=== PATIENT | female | born 1955 | race Caucasian/White ===

== ENCOUNTER 2019-11-25 08:44 | Inpatient (IN) | payer BC, SELFPAY ==
[2019-11-25] VITALS (14 sets, daily range): BP systolic 104–152; BP diastolic 58–80; PULSE 80–110; RESP 18–20; TEMP 36.2–37.1; O2SAT 98–100; BMI 21.5
--- NOTE | ~2019-11-25 | XR_ITS ---
EXAMINATION: XR chest 1V portable INDICATION: Fever TECHNIQUE: Portable AP chest at 1548 hours COMPARISON: 08/13/2018 FINDINGS: The lungs are free of acute opacities. There is no pleural effusion or pneumothorax. The ca rdiomediastinal silhouette is normal. The visualized bones and soft tissues are unremarkable. IMPRESSION: 1. No acute cardiopulmonary abnormality. Reviewed, dictated and finalized at location A.
--- NOTE | 2019-11-25 08:57 | ED.GENADULT ---
HPI - General Adult General Chief complaint: Unspecified Stated complaint: multiple complaints Time Seen by Provider: 11/25/19 08:52 History of Present Illness HPI narrative: 64 yo female presents from home with multiple complaints. She has not been feeling well for the past 3 days. She has no appetitie, she has not been tolerating food or liquids. She also reports chills and temperature up to 99.6. Generalized weakness an light headedness. She has no known sick contacts, but she has not been practicing social distancing. Related Data Home Medications Medication Instructions Recorded Confirmed albuterol sulfate 90 mcg/actuation 1 puff INHALATION Q4H PRN 04/13/19 11/25/19 aerosol inhaler estradiol 1 mg PO DAILY 11/25/19 11/25/19 fluticasone propion-salmeterol 1 inh INHALATION Q12H 11/25/19 11/25/19 [Wixela Inhub] hyoscyamine sulfate 0.125 mg PO Q4H PRN 11/25/19 11/25/19 ibuprofen 400 mg PO Q6H PRN 11/25/19 11/25/19 metaxalone 800 mg PO TID PRN 11/25/19 11/25/19 pantoprazole 40 mg PO DAILY 11/25/19 11/25/19 Allergies Allergy/AdvReac Type Severity Reaction Status Date / Time No Known Allergies Allergy Verified 11/25/19 09:05 Review of Systems Review of Systems: All systems reviewed & are unremarkable except as noted in HPI and below Constitutional: Constitutional: Reports chills ENT: Denies sore throat Cardiovascular: Cardiovascular: Denies chest pain Respiratory: Respiratory: Reports dyspnea Gastrointestinal: Gastrointestinal: Reports diarrhea, Reports nausea and Reports vomiting Genitourinary: Genitourinary: Denies hematuria and Denies dysuria Neurologic: Reports dizziness, Reports headache(s) and Reports weakness PMFSH Family History Family History Father Family history of suicide Family history of rheumatoid arthritis Sibling Family history of osteoarthritis Mother Family history of chronic obstructive pulmonary disease Family history of malignant neoplasm Social History Social History Smoking status: Former smoker Tobacco type: cigarettes Smoking end date: 06/03/00 Alcohol intake: never Substance use: never Gender identity (if verbalized by the patient): Female Spiritual care concerns: No Exam Const: General: no acute distress, alert and ill appearing Orientation/consciousness: patient oriented x3 HENMT: Mouth: Yes dry mucous membranes Resp: Effort & Inspection: normal respiratory effort Auscultation: clear to auscultation bilaterally Cardio: Rate: regular rate Rhythm: regular rhythm GI: GI Palp: Yes Soft to palpation and No Tenderness to palpation present (GI) Skin: General skin exam: normal color Neuro: General: patient oriented x3, moves all extremities, no focal motor deficits and CN's II-XI intact bilaterally Speech: normal speech Extrem: General: normal to inspection Psych: Affect: Anxious affect present Course Vital Signs Vital signs: Vital Signs Temperature 36.2 C L 11/25/19 08:51 Pulse Rate 91 11/25/19 08:51 Respiratory Rate 18 11/25/19 08:51 Blood Pressure 152/75 H 11/25/19 08:51 Pulse Oximetry 100 11/25/19 08:51 Temperature 36.2 C L 11/25/19 08:51 Pulse Rate 110 H 11/25/19 12:05 Respiratory Rate 18 11/25/19 11:40 Blood Pressure 135/74 11/25/19 11:40 Pulse Oximetry 100 11/25/19 11:40 Medical Decision Making MDM Narrative Medical decision making narrative: She has significant hyponatremia, likely dehydration related. This could be an atypicla presentation of COVID-19. Will test and plan to admit. Medical Records Medical records reviewed: Yes I reviewed the patient's medical records. Vital Signs Vital Signs: Vital Signs Temperature 36.2 C L 11/25/19 08:51 Pulse Rate 91 11/25/19 08:51 Respiratory Rate 18 11/25/19 08:51 Blood Pressure 152/75 H 11/25/19 08:51 Pulse Oximetry 1
[2019-11-25 09:27] LABS: Basophils Absolute Auto 0.1 K/mm3 (0.0-0.1); Basophils Percent Auto 2.1 % (0.2-1.2); Eosinophils Absolute Auto 0.1 K/mm3 (0-0.3); Eosinophils Percent Auto 1.2 % (0-4.4); Hematocrit 37.9 % (37.0-47.0); Hemoglobin 14.1 g/dL (12.0-15.0); Immature Granulocyte Absolute 0.05 K/mm3 (0.00-0.031); Immature Granulocyte Percent A 1.2 % (0-0.5); Lymphocytes Absolute Auto 1.07 K/mm3 (0.9-3.2); Lymphocytes Percent Auto 25.3 % (18.3-44.2); Mean Corpuscular HGB Conc 37.2 g/dl (32-36); Mean Corpuscular Hemoglobin 34.1 pg (26-34); Mean Corpuscular Volume 91.5 fl (80-100); Mean Platelet Volume 9.7 fl (7.4-10.4); Monocytes Absolute Auto 0.8 K/mm3 (0.1-0.6); Monocytes Percent Auto 19.6 % (2.6-8.5); Neutrophils Absolute Auto 2.1 K/mm3 (1.3-6.7); Neutrophils Percent Auto 50.6 % (45.5-73.1); Platelet Count Result 301 k/mm3 (150-375); Red Blood Count 4.14 M/mm3 (4.2-5.4); Red Cell Distribution Width 11.9 % (11.5-14.5); White Blood Count 4.2 K/mm3 (4.5-10.0)
[2019-11-25 09:32] LABS: Add Urine Microscopic? YES; Appearance Urine Clear (Clear); Bacteria Urine Trace /hpf; Bilirubin Urine Negative (Negative); Blood Urine 1+ (Negative); Color Urine Yellow (Yellow); Glucose Urine UA Negative (Negative); Hyaline Casts Urine 30-49 /lpf; Ketones Urine Negative (Negative); Leukocyte Esterase Ur Negative LEU/UL (Negative); Mucus Urine Rare /lpf; Nitrate Urine Negative (Negative); Protein Urine 2+ mg/dL (Negative); Specific Grav Ur 1.019 (1.001-1.035); Squamous Epithelial Cell Urine Moderate /hpf (Few); Urobilinogen Urine Negative mg/dL (<2.0); WBC Urine 0-3 /hpf
[2019-11-25] MEDS: SODIUM CHLORIDE 0.9% IV 1,000 ML 999 ML IV CONT (09:44)
[2019-11-25] MEDS: ONDANSETRON INJ 4 MG/2 ML VIAL IV PUSH (09:44)
[2019-11-25 09:52] LABS: Alanine Aminotransferase 30 U/L (4-35); Albumin Level 4.8 g/dL (3.5-5.1); Alkaline Phosphatase 128 U/L (38-126); Aspartate Amino Transferase 69 U/L (14-36); Bilirubin,Total 1.8 mg/dL (0.2-1.3); Blood Urea Nitrogen 3 mg/dL (7-17); Calcium 9.8 mg/dL (8.4-10.2); Carbon Dioxide 25 mmol/L (22-30); Chloride 77 mmol/L (98-107); Estimated CRCL calculation 65 ml/min; Estimated Glomerular Filt Rate > 60; Glucose 124 mg/dL (65-105); Lipase 56 U/L (23-300); Potassium 2.8 mmol/L (3.4-5.0); Sodium 114 mmol/L (137-145)
[2019-11-25] MEDS: POTASSIUM CHLORIDE 20 MEQ PACKET (FOR LIQUID) 40 MEQ PO (11:46)
--- NOTE | 2019-11-25 12:00 | ADMGEN ---
This patient, Rosemarie Chung, was admitted to [facility] Surg Room 329-01. Patient/family oriented to hospital policies and general routines including ID bracelet, bed and alarms, visiting hours, pain management, procedures, bathroom and other care routines, personal items, smoking policy, room service/diet, and visiting hours. Valuables list has been completed. Information on how to activate the Rapid Response Team has been discussed. Patient/Family are encouraged to report perceived risks to care and to ask questions if they do not understand what they are told or what they should do.
[2019-11-25] MEDS: LACTATED RINGERS 1,000 ML 100 ML IV CONT ×2 (12:09→21:26)
[2019-11-25] MEDS: LORAZEPAM 0.5 MG TABLET PO ×2 (13:40→22:00)
[2019-11-25] MEDS: estradioL 1 MG TABLET PO (14:58)
[2019-11-25] MEDS: PANTOPRAZOLE 40 MG TABLET PO (14:59)
[2019-11-25] MEDS: METAXALONE 800 MG TABLET PO ×2 (16:00→20:11)
--- NOTE | 2019-11-25 16:12 | PM.IMHP ---
H&P: HPI History of Present Illness Chief complaint: hyponatremia,dehydration Narrative: Rosemarie Chung is a 64 year old female who has irritable bowel syndrome and has been having nausea vomiting and diarrhea for the last 3 days. She has not had any cough but has had a low-grade fever less than 100. She just does not have any appetite she has not been able to tolerate food or liquids. She has some generalized weakness and some lightheadedness. She has not been practicing social to sensing at her son-in-law works at a [employer] house. He has not tested positive for covid 19. She has not had a test for covid 19 until today. Sodium level 114. Potassium 2.8. Was replaced a as she was given Zofran and IV fluids. Patient was swabbed for COVID and placed in isolation. Awaiting results. She has been afebrile here. Review of Systems Review of Systems: All systems reviewed & are unremarkable except as noted in HPI and below Constitutional: Constitutional: Reports as per HPI and Reports no additional constitutional complaints Eyes: Eyes: Reports as per HPI and Reports no additional eye complaints ENT: Reports system reviewed and no additional complaints, except as documented and Reports Normal hearing present Cardiovascular: Cardiovascular: Reports no additional cardiovascular complaints Respiratory: Respiratory: Reports no additional respiratory complaints and Reports no additional respiratory complaints Gastrointestinal: Gastrointestinal: Reports as per HPI and Reports no additional gastrointestinal complaints Musculoskeletal: Musculoskeletal: Reports no additional musculoskeletal complaints Integumentary/Breasts: Skin/Breast: Reports system reviewed and no additional complaints, except as docu and Reports as per HPI Neurologic: Reports system reviewed and no additional complaints, except as documented, Reports as per HPI and Reports Normal hearing present Psychiatric: Psychiatric: Reports no additional psychiatric complaints and Reports as per HPI Endocrine: Endocrine: Reports no additional endocrine complaints Hematologic/Lymphatic: Hematologic/Lymphatic: Reports no additional hematologic/lymphatic complaints Allergic/Immunologic: Allergic/Immunologic: Reports no additional allergic/immunologic complaints [facility] Past Medical History Medical History (Updated 11/25/19 @ 16:35 by Kathie Barnett NP) COPD (chronic obstructive pulmonary disease) Surgical History Surgical History (Updated 11/25/19 @ 16:25 by Kathie Barnett NP) H/O repair of right rotator cuff H/O toe surgery Neuroma removed H/O: hysterectomy Family History Family History (Updated 11/25/19 @ 16:29 by Kathie Barnett NP) Father Family history of suicide Family history of rheumatoid arthritis Sibling Family history of osteoarthritis Mother Family history of chronic obstructive pulmonary disease Family history of malignant neoplasm Daughter Asthma Social History Social History (Updated 11/25/19 @ 16:29 by Kathie Barnett NP) Social History: She lives with her who she desires to have is her durable to power estate planning attorney for healthcare. Patient desires to be a full code. She has 1 daughter who has asthma. She is retired. She is a former smoker. She does not use any alcohol marijuana or any in illicit drugs. Smoking status: Former smoker Tobacco type: cigarettes Smoking end date: 06/03/00 Alcohol intake: never Substance use: never Gender identity (if verbalized by the patient): Female Spiritual care concerns: No Meds Home Medications and Allergies Home Medications Medication Instructions Recorded Confirmed Type albuterol sulfate 90 mcg/actuation 1 puff INHALATION Q4H PRN 04/13/19 11/25/19 History aerosol inhaler lorazepam 0.5 mg tablet 0.5 mg PO TID PRN #90 tablet 09/08/19 11/25/19 Rx hydrocodone 5 mg-acetaminophen 325 1 tablet PO Q8H PRN #60 tablet 10/12/19 11/25/19 Rx mg tablet diclofenac
[2019-11-25 17:05] LABS: Magnesium 1.2 mg/dL (1.6-2.3)
[2019-11-25 17:15] LABS: Blood Urea Nitrogen 3 mg/dL (7-17); Calcium 8.5 mg/dL (8.4-10.2); Carbon Dioxide 23 mmol/L (22-30); Chloride 89 mmol/L (98-107); Estimated CRCL calculation 88 ml/min; Estimated Glomerular Filt Rate > 60; Glucose 107 mg/dL (65-105); Potassium 3.6 mmol/L (3.4-5.0); Sodium 120 mmol/L (137-145)
[2019-11-25] MEDS: FAMOTIDINE 20 MG/2 ML VIAL IV PUSH (20:08)
[2019-11-25] MEDS: FLUTICASONE/SALMETEROL 115-21 MCG INHALER 1 PUFF 2 PUFF INHALATION (21:20)
[2019-11-26] VITALS (13 sets, daily range): BP systolic 120–140; BP diastolic 63–70; PULSE 78–104; RESP 16–18; TEMP 36.6–37.3; O2SAT 98–100
[2019-11-26 01:04] LABS: Sodium 120 mmol/L (137-145)
[2019-11-26] MEDS: METAXALONE 800 MG TABLET PO ×3 (05:24→22:08)
[2019-11-26 07:02] LABS: Alanine Aminotransferase 21 U/L (4-35); Alkaline Phosphatase 95 U/L (38-126); Aspartate Amino Transferase 47 U/L (14-36); Blood Urea Nitrogen 4 mg/dL (7-17); CRP 0.6 mg/dL (<1.0); Calcium 8.5 mg/dL (8.4-10.2); Carbon Dioxide 27 mmol/L (22-30); Chloride 93 mmol/L (98-107); Estimated CRCL calculation 88 ml/min; Estimated Glomerular Filt Rate > 60; Glucose 96 mg/dL (65-105); Lipase 71 U/L (23-300); Magnesium 1.3 mg/dL (1.6-2.3); Potassium 3.2 mmol/L (3.4-5.0); Sodium 125 mmol/L (137-145)
[2019-11-26] MEDS: FLUTICASONE/SALMETEROL 115-21 MCG INHALER 1 PUFF 2 PUFF INHALATION ×2 (07:55→20:14)
[2019-11-26] MEDS: FAMOTIDINE 20 MG/2 ML VIAL IV PUSH ×2 (08:56→22:06)
[2019-11-26] MEDS: PANTOPRAZOLE 40 MG TABLET PO (08:56)
[2019-11-26] MEDS: POTASSIUM CHLORIDE 20 MEQ TABLET 40 MEQ PO (08:56)
[2019-11-26] MEDS: estradioL 1 MG TABLET PO (08:56)
[2019-11-26] MEDS: LORAZEPAM 0.5 MG TABLET PO ×2 (08:57→22:08)
[2019-11-26] MEDS: LACTATED RINGERS 1,000 ML 100 ML IV CONT ×2 (09:02→19:25)
[2019-11-26] MEDS: MAGNESIUM OXIDE 400 MG TABLET PO (10:02)
[2019-11-26 12:47] LABS: SARS-CoV-2 RNA PCR Negative
--- NOTE | 2019-11-26 15:47 | PM.IMPN ---
Progress Note: A&P Assessment and Plan (1) Acute hyponatremia: Code(s): E87.1 - Hypo-osmolality and hyponatremia Status: Acute Assessment and Plan: This is most likely secondary to dehydration as patient had ongoing vomiting and diarrhea for approximately 3 days. Sodium was 114 at presentation, and has increased steadily to 125. She is now tolerating oral intake. Repeat sodium this afternoon Continue lactated Ringer's at a decreased rate of 70 ml/hr Will check urine sodium if she does not demonstrate continued improvement with IV fluids. (2) Hypokalemia: Code(s): E87.6 - Hypokalemia Status: Acute Assessment and Plan: Potassium was low at presentation at 2.8. This was likely due to dehydration. Levels improved with replacement but on repeat this morning was mildly low at 3.2. Replace potassium a continue to supplement as needed Continue to monitor levels closely (3) Hypomagnesemia: Code(s): E83.42 - Hypomagnesemia Status: Acute Assessment and Plan: Low at 1.3, again likely due to dehydration secondary to nausea and vomiting. Replace magnesium and continue to supplement as needed Continue to monitor closely (4) Irritable bowel syndrome with diarrhea: Code(s): K58.0 - Irritable bowel syndrome with diarrhea Status: Acute Assessment and Plan: Patient reported diarrhea ongoing approximately 3 days. Her bowel movements have been formed in the hospital. Continue hyoscyamine Continue to monitor. She may benefit from outpatient referral to GI doctor given diarrhea chronicity. (5) Fibromyalgia: Code(s): M79.7 - Fibromyalgia Status: Acute Assessment and Plan: She denies diffuse pain or muscle aches at this time. Continue home pain regimen of Skelaxin and [place] as needed (6) Anxiety: Code(s): F41.9 - Anxiety disorder, unspecified Status: Chronic Assessment and Plan: She reports being slightly anxious about being in the hospital but overall is stable. Continue lorazepam as needed (7) COPD (chronic obstructive pulmonary disease): Code(s): J44.9 - Chronic obstructive pulmonary disease, unspecified Status: Chronic Assessment and Plan: Stable at this time and not in acute exacerbation. She is maintaining adequate oxygenation. Continue albuterol as needed Maintain oxygen level >90% (8) Suspected COVID-19 virus infection: Code(s): Z20.828 - Contact with and (suspected) exposure to other viral communicable diseases Status: Acute Assessment and Plan: COVID-19 test is pending at this time. She reports she has not been practicing social distancing. She did endorse fevers at home. She denies shortness of breath or cough and she is maintaining adequate oxygenation on room air Continue isolation precautions and await results Subjective Date/time seen: 11/26/19 15:47 Interval history: Date of service: 11/26/2019 She reports that she is feeling much better today. She does complain of some bilateral leg pain secondary to sciatica. She has not had any additional nausea or vomiting. She denies abdominal pain, cramping, or diarrhea. She had a formed bowel movement this afternoon. She was able to tolerate breakfast and lunch today. She denies cough, shortness of breath, or chest pain. Subjective fever, chills, dizziness or lightheadedness. She has been ambulating around the room without difficulty. She denies urinary symptoms. She denies muscle weakness or cramps, but states that is not uncommon for her to get Charley horses in her legs. She is in good spirits. Review of Systems Review of Systems: Narrative: A 12 point review of systems was reviewed with pertinent positives and negatives as per Exam Narrative: Exam Narrative: Ms. Chung is examined alone today. She is a well-nourished 64-year-old female who is sitting up at t
--- NOTE | 2019-11-26 16:05 | PC.NURSE ---
Notified Elisha WILSON that patient's COVID test was negative.
[2019-11-26 16:27] LABS: Sodium 126 mmol/L (137-145)
[2019-11-26 17:57] LABS: IFOB Positive Control Positive; Immunochemical Fecal Occult Bl Negative (N)
[2019-11-27] VITALS (7 sets, daily range): BP systolic 141–144; BP diastolic 79–80; PULSE 85–93; RESP 16–18; TEMP 36.5–36.7; O2SAT 97–99
[2019-11-27] MEDS: LORAZEPAM 0.5 MG TABLET PO (04:27)
[2019-11-27] MEDS: LACTATED RINGERS 1,000 ML 100 ML IV CONT (05:55)
[2019-11-27] MEDS: METAXALONE 800 MG TABLET PO (05:55)
[2019-11-27 06:42] LABS: Blood Urea Nitrogen 5 mg/dL (7-17); Calcium 8.9 mg/dL (8.4-10.2); Carbon Dioxide 27 mmol/L (22-30); Chloride 95 mmol/L (98-107); Estimated CRCL calculation 106 ml/min; Estimated Glomerular Filt Rate > 60; Glucose 98 mg/dL (65-105); Magnesium 1.3 mg/dL (1.6-2.3); Potassium 3.7 mmol/L (3.4-5.0); Sodium 128 mmol/L (137-145)
[2019-11-27] MEDS: MAGNESIUM OXIDE 400 MG TABLET PO (08:39)
[2019-11-27] MEDS: estradioL 1 MG TABLET PO (08:39)
[2019-11-27] MEDS: PANTOPRAZOLE 40 MG TABLET PO (08:39)
[2019-11-27] MEDS: FAMOTIDINE 20 MG/2 ML VIAL IV PUSH (08:39)
[2019-11-27] MEDS: FLUTICASONE/SALMETEROL 115-21 MCG INHALER 1 PUFF 2 PUFF INHALATION (09:03)
--- NOTE | 2019-11-27 13:48 | PM.DS ---
DS: Admitting Diagnosis Admitting Diagnosis Admitting Diagnosis: Hypo-osmolality and hyponatremia DS: Discharge Diagnosis Discharge Diagnosis (1) Acute hyponatremia: Code(s): E87.1 - Hypo-osmolality and hyponatremia Status: Acute Assessment and Plan: Most likely secondary to dehydration as she presented with approximately 3 days of ongoing nausea, vomiting, and diarrhea which improved. Sodium was 114 at presentation, and increased steadily to 128 with gentle IV fluids. She will repeat BMP in one week. (2) Hypokalemia: Code(s): E87.6 - Hypokalemia Status: Acute Assessment and Plan: Potassium was low at presentation at 2.8, likely secondary to vomiting and diarrhea. Levels improved with replacement and potassium was 3.7 at discharge. Repeat BMP in one week. (3) Hypomagnesemia: Code(s): E83.42 - Hypomagnesemia Status: Acute Assessment and Plan: Again likely due to dehydration secondary to nausea and vomiting. Magnesium was replaced but still mildly low at discharge. I expect improvement with advancement of oral intake. Repeat magnesium in one week. (4) Irritable bowel syndrome with diarrhea: Code(s): K58.0 - Irritable bowel syndrome with diarrhea Status: Acute Assessment and Plan: Her diarrhea resolved. She will continue hyoscyamine. She may benefit from outpatient referral to GI doctor given diarrhea chronicity. (5) Fibromyalgia: Code(s): M79.7 - Fibromyalgia Status: Acute Assessment and Plan: Continue home pain regimen of Skelaxin and [place] as needed (6) Anxiety: Code(s): F41.9 - Anxiety disorder, unspecified Status: Chronic Assessment and Plan: She was slightly anxious about being in the hospital but overall remained stable. (7) COPD (chronic obstructive pulmonary disease): Code(s): J44.9 - Chronic obstructive pulmonary disease, unspecified Status: Chronic Assessment and Plan: Not in acute exacerbation. She maintained adequate oxygenation on room air. (8) Suspected COVID-19 virus infection: Code(s): Z20.828 - Contact with and (suspected) exposure to other viral communicable diseases Status: Acute Assessment and Plan: COVID-19 test is pending at this time. She reports she has not been practicing social distancing. She did endorse fevers at home. She denies shortness of breath or cough and she is maintaining adequate oxygenation on room air Continue isolation precautions and await results (9) COVID-19 ruled out: Code(s): Z03.818 - Encounter for observation for suspected exposure to other biological agents ruled out Status: Acute Assessment and Plan: Negative COVID test on 11/25/2019. We discussed maintaining social distancing, hand hygiene, and mask wearing. DS: Summary Hospital Course Reason for hospitalization: Acute hyponatremia Hospital Course: Date of admission: 11/25/2019 Date of discharge: 11/27/2019 Rosemarie Chung is a 64 year old female with a PMH significant for COPD and IBS with diarrhea who presented to the emergency departement on 11/25/2019 with complaints of nausea, vomiting, and diarrhea for approximately 3 days with associated low grade fever Tmax 99.7, poor appetite and inability to tolerate oral intake, weakness, and lightheadedness. She denied cough or shortness of breath, but given her overall symptoms and having close contact with her son who works in a custodial, she was concerned for Covid-19. At presentation, she was afebrile, WBC 4.2, sodium 114, potassium 2.8, chloride 77, lipase 56, magnesium 1.2, and unremarkable CXR. She was admitted to the hospitalist service on 11/25/2019. She tested negative for Covid and isolation precautions were discontinued. Her sodium, potassium, and magnesium were replaced and she was rehydrated with IV fluids. She began feeling much better, was able to tolerate a regular diet, an
--- NOTE | 2019-11-27 16:14 | PC.NURSE ---
Pt is A&O x 3. Pt has had IV removed, and discharge paperwork has been reviewed. Opportunity for questions provided and questions answered to the best of my ability. Pt had tele removed. Pt was assisted in a wheelchair by staff, to the front door to meet her ride.
== END 2019-11-27 15:30 | disposition home or self-care (01) | DRG 641 ==
LOC: ANHED 10:35 → ANH3MEDSUR 10:54
PROVIDERS: Nurse Practitioner; Admitting Provider Family Medicine; Emergency Provider Emergency Medicine; PCP Internal Medicine; Visit Provider Physician Assistant
DX: E86.0 Dehydration (principal); E87.1 Hypo-osmolality and hyponatremia; E87.6 Hypokalemia; E83.42 Hypomagnesemia; R50.9 Fever, unspecified; Z20.828 Contact with and (suspected) exposure to other viral communicable diseases; J44.9 Chronic obstructive pulmonary disease, unspecified; K58.0 Irritable bowel syndrome with diarrhea; M79.7 Fibromyalgia; F41.9 Anxiety disorder, unspecified; Z87.891 Personal history of nicotine dependence
CPT/HCPCS: 36415; 71045; 80048; 80053; 81001; 82274; 83690; 83735; 84295; 84443; 85025; 86140; 87015; 87045; 87046; 87269; 87272; 87324; 87427; 87635; 89055; 94640; 96361; 96374; 99285; A9270; C9803; J2405; J7030; J7120; U0003

== ENCOUNTER 2019-12-04 15:17 | Outpatient (CLI) | payer BC, SELFPAY ==
[2019-12-04 16:47] LABS: Blood Urea Nitrogen 8 mg/dL (7-17); Calcium 8.6 mg/dL (8.4-10.2); Carbon Dioxide 25 mmol/L (22-30); Chloride 91 mmol/L (98-107); Estimated Glomerular Filt Rate > 60; Glucose 86 mg/dL (65-105); Magnesium 1.6 mg/dL (1.6-2.3); Potassium 4.7 mmol/L (3.4-5.0); Sodium 126 mmol/L (137-145)
== END 2019-12-04 15:18 | disposition home or self-care (01) ==
LOC: ANHLAB 15:19
PROVIDERS: PCP Internal Medicine; Visit Provider Physician Assistant
DX: E83.42 Hypomagnesemia (principal); E87.1 Hypo-osmolality and hyponatremia; E87.6 Hypokalemia
CPT/HCPCS: 36415; 80048; 83735

== ENCOUNTER 2019-12-15 10:02 | Outpatient (CLI) | payer BC, SELFPAY ==
--- NOTE | ~2019-12-15 | XR_ITS ---
XR lumbar spine 2-3V DATE: 12/15/2019 10:28 INDICATION: Lumbar radiculopathy following injury from fall 2 weeks ago TECHNIQUE: AP, lateral, coned lateral lumbosacral views COMPARISON: 05/23/2018 lumbar spine FINDINGS: There is rotatory levoscoliosis of the lower thoracic and lumbar spine. There is multilevel degenerative disc disease, particularly prominent at L1-2 and L5-S1. No fracture or bone destruction or spondylolisthesis. The included lower thoracic and lumbar pedicles are intact. The sacroiliac joints are normal. IMPRESSION: Rotatory levoscoliosis of the thoracolumbar spine and multilevel degenerative disc diseas e Reviewed, dictated and finalized at location A. IMPRESSION: Rotatory levoscoliosis of the thoracolumbar spine and multilevel de generative disc disease
== END 2019-12-15 10:03 | disposition home or self-care (01) ==
PROVIDERS: PCP Internal Medicine; Visit Provider Pain Medicine Interventional Pain Medicine
DX: M54.17 Radiculopathy, lumbosacral region (principal); G89.4 Chronic pain syndrome; Z79.891 Long term (current) use of opiate analgesic; Z13.89 Encounter for screening for other disorder; M51.36 Other intervertebral disc degeneration, lumbar region
CPT/HCPCS: 72100

== ENCOUNTER → 2019-12-30 12:18 | Outpatient (CLI) | payer BC, SELFPAY ==
--- NOTE | ~2019-12-30 | MM_ITS ---
EXAMINATION: MM screening carmen BI w daljit HISTORY: Screening mammogram TECHNIQUE: Craniocaudal and mediolateral oblique 3-D tomosynthesis images were obtained and synthetic 2-D images were generated. CAD analysis was submitted and interpreted. COMPARISON: 11/13/2018, 07/24/2017, 07/18/2016 bilateral digital screening mammogram examinations BREAST PARENCHYMAL COMPOSITION: FINDINGS: There are occasional bilateral benign calcifications. There is no evidence of suspicious m ass, calcification, or architectural distortion to suggest malignancy in either breast. There has bee n no suspicious interval change. IMPRESSION: 1. No mammographic evidence of malignancy. 2. Recommend routine screening mammography in one year. BI-RADS Category 2: Benign finding(s). Reviewed, dictated and finalized at location A.
--- NOTE | ~2019-12-30 | DEXA_ITS ---
Bone Density Report Name: Rosemarie Chung Age: 64 Sex: Female Ethnicity: White Date of : 1955 Indication: monitoring treatment; parental hip fracture; height loss; prior fracture; hysterectomy; Referring Provider: ABDIEL DIXON Study: Bone densitometry was performed. Exam Date: December 30, 2019 Accession number: [id number] There is hypertrophic degenerative change of the lumbar spine, which results in higher than expected spine bone mineral density measurements. These spine BMD and T score and Z score measurements are not reflective of the patient's true general bone mineral density. Bone Density: Region BMD T-score Z-score Classification AP Spine (L3, L4) 1.349 2.3 3.9 Normal Femoral Neck (Left) 0.930 0.7 2.1 Normal Total Hip (Left) 1.198 2.1 3.2 Normal Femoral Neck (Right) 0.944 0.9 2.2 Normal Total Hip (Right) 1.152 1.7 2.8 Normal Total Hip Mean 1.175 1.9 3.0 Normal World Health Organization criteria for BMD impression classify patients as: Normal (T-score at or above -1.0), Osteopenia (T-score between -1.0 and -2.5), or Osteoporosis (T-score at or below -2.5). 10-year Fracture Risk: FRAX not reported because: All T-scores for Spine Total, Hip Total, Femoral Neck at or above -1.0 Treated for osteoporosis Previous Exams: Region Exam Age BMD T-score BMD Change BMD Change Date g/cm2 vs Baseline vs Previous AP Spine(L3, L4) 12/30/2019 64 1.349 2.3 0.133* 0.047* 04/22/2015 59 1.303 1.8 0.087* 0.064* 05/10/2012 56 1.239 1.3 0.023* 0.033* 06/16/2007 51 1.206 1.0 -0.010 -0.010 05/03/2004 48 1.216 1.0 Total Hip(Left) 12/30/2019 64 1.198 2.1 -0.034* 0.028* 04/22/2015 59 1.170 1.9 -0.062* -0.025 05/10/2012 56 1.196 2.1 -0.037* 0.056* 06/16/2007 51 1.140 1.6 -0.093* -0.093* 05/03/2004 48 1.232 2.4 Total Hip(Right) 12/30/2019 64 1.152 1.7 -0.087* -0.023 04/22/2015 59 1.175 1.9 -0.064* 0.026 05/10/2012 56 1.149 1.7 -0.090* 0.019 06/16/2007 51 1.130 1.5 -0.109* -0.109* 05/03/2004 48 1.238 2.4 *Denotes significance at 95% confidence level, LSC for AP Spine = 0.022 g/cm2, LSC for Total Hip = 0.027 g/cm2 Clinical Information Provided by Patient: Has had a low trauma fracture Parent has had a hip fracture Is being ghazala
== END ==
PROVIDERS: Visit Provider Obstetrics & Gynecology Gynecology
DX: Z12.31 Encounter for screening mammogram for malignant neoplasm of breast (principal); Z78.0 Asymptomatic menopausal state
CPT/HCPCS: 77063; 77067; 77080

== ENCOUNTER → 2020-02-13 10:36 | Outpatient (CLI) | payer BC, SELFPAY ==
--- NOTE | ~2020-02-13 | MR_ITS ---
EXAMINATION: MR lumbar spine wo con DATE: 02/13/2020 11:20 INDICATION: Lumbar radiculopathy. Chronic low back pain and left leg pain. TECHNIQUE: Magnetic resonance imaging (MRI) of the lumbar spine was performed without intravenous con trast. Sequences included sagittal T2-weighted FSE, sagittal T2-weighted FS FSE, sagittal T1-weighted FSE, and axial T2-weighted FSE. COMPARISON: Lumbar spine radiographs 12/15/2019 FINDINGS: There is 22 degrees levoscoliosis of lumbar spine. There is a compression fracture of super ior endplate of L3 with less than 1/5 loss of height and bone marrow edema. There is severely decreas ed disc height at L1-L2, moderately decreased disc height at L2-L3 and L3-L4, and severely decreased disc height at L4-L5 and L5-S1. The distal spinal cord signal intensity is normal. The conus medullar is is at L1-L2. The following disc levels are specifically discussed: L1-L2: The disc is bulging. There is mild bilateral facet joint osteoarthritis. There is moderate rig ht neural foraminal stenosis. There is mild central canal stenosis. L2-L3: The disc is bulging with superimposed right subarticular extrusion. There is moderate right an d mild left facet joint osteoarthritis. There is mild right neural foraminal stenosis. There is mild central canal stenosis. L3-L4: The disc is bulging. There is moderate right and severe left facet joint osteoarthritis. There is mild right and moderate left neural foraminal stenosis. There is mild central canal stenosis. L4-L5: The disc is bulging. There is moderate right and severe left facet joint osteoarthritis. There is mild right and severe left neural foraminal stenosis. There is mild central canal stenosis. L5-S1: The disc is bulging. There is mild bilateral facet joint osteoarthritis. There is moderate rig ht and mild left neural foraminal stenosis. There is mild central canal stenosis. IMPRESSION: 1. Acute/subacute L3 compression fracture. 2. Severe lumbar spondylosis. 3. Lumbar levoscoliosis. Reviewed, dictated and finalized at location A.
== END ==
PROVIDERS: PCP Internal Medicine; Visit Provider Pain Medicine Interventional Pain Medicine
DX: M54.17 Radiculopathy, lumbosacral region (principal); Z13.89 Encounter for screening for other disorder; Z51.81 Encounter for therapeutic drug level monitoring; Z79.891 Long term (current) use of opiate analgesic; G89.4 Chronic pain syndrome; M47.896 Other spondylosis, lumbar region
CPT/HCPCS: 72148

== ENCOUNTER → 2020-05-10 08:28 | Outpatient (CLI) | payer BC, SELFPAY ==
--- NOTE | ~2020-05-10 | XR_ITS ---
EXAMINATION: XR hip BI wo pelvis DATE: 05/10/2020 08:50 INDICATION: Bilateral hip pain, left greater than right TECHNIQUE: Anteroposterior and frog-leg lateral views of the hip and anteroposterior and frog-leg lat eral views of the right hip were obtained. COMPARISON: None. FINDINGS: Alignment is normal. No fracture. Bilateral hip and sacroiliac joint spaces are normal. Severe lower lumbar spondylosis. Soft tissues are unremarkable. IMPRESSION: 1. Normal bilateral hips. 2. Severe lower lumbar spondylosis. Reviewed, dictated and finalized at location A. [employer] CONSULTANT
== END ==
PROVIDERS: PCP Internal Medicine
DX: M25.552 Pain in left hip (principal); Z51.81 Encounter for therapeutic drug level monitoring; Z79.891 Long term (current) use of opiate analgesic; M47.816 Spondylosis without myelopathy or radiculopathy, lumbar region
CPT/HCPCS: 73521

== ENCOUNTER → 2020-10-17 11:11 | Outpatient (CLI) | payer BC, SELFPAY ==
--- NOTE | ~2020-10-17 | XR_ITS ---
EXAMINATION: XR hip BI wo pelvis EXAM DATE: 10/17/2020 11:30 INDICATION: Pain in unspecified hip . TECHNIQUE: Each hip imaged independently (separate right and also left hip) 'frog leg' and frontal p rojections for interpretation. Comparison is made to prior examination from 05/10/2020. FINDINGS: No radiographic evidence of hip avascular necrosis. There is mild symmetric bilateral hip primary osteoarthritis. There is advanced lower lumbar disc disease. There are no acute fractures id entified. Sacrum, sacroiliac joints, sacral arcuate lines are intact. IMPRESSION: Mild symmetric bilateral hip osteoarthritis. Reviewed, dictated and finalized at location A.
--- NOTE | ~2020-10-17 | XR_ITS ---
XR lumbar spine 2-3V DATE: 10/17/2020 11:30 INDICATION: Radiculopathy, lumbar area TECHNIQUE: AP, lateral, coned lateral lumbosacral views COMPARISON: 02/13/2012 MRI lumbar spine 12/15/2019 lumbar spine FINDINGS: There is prominent rotatory levoscoliosis of the lower thoracic and lumbar spine with promi nent degenerative disc disease throughout the lumbar and lumbosacral spine. Status post vertebroplasty at L3. No interval fracture or bone destruction is evident. Included lower thoracic and lumbar pedicles are intact. Sacral iliac joints are intact. IMPRESSION: Prominent rotatory levoscoliosis and severe multilevel degenerative disc disease Status post vertebroplasty at L3-12/15/2019 Reviewed, dictated and finalized at location A.
== END ==
PROVIDERS: PCP Internal Medicine; Visit Provider Pain Medicine Interventional Pain Medicine
DX: M16.0 Bilateral primary osteoarthritis of hip (principal); M41.9 Scoliosis, unspecified; M47.26 Other spondylosis with radiculopathy, lumbar region
CPT/HCPCS: 72100; 73521

== ENCOUNTER 2021-02-17 19:35 | Inpatient (IN) | payer BC, SELFPAY ==
--- NOTE | ~2021-02-17 | XR_ITS ---
XR chest 2V DATE: 02/17/2021 19:57 INDICATION: Chest pain for one month. Labored breathing. History of COPD. TECHNIQUE: PA and lateral views COMPARISON: 11/25/2019 portable AP chest FINDINGS: Normal heart size. No hilar or mediastinal enlargement. Bilateral hyperinflation; no active infiltrate or consolidation, pleural effusion or pulmonary vascul ar congestion or pneumothorax is detected. There is mild dextroscoliosis of the thoracic spine and prominent rotatory levoscoliosis and degenera tive disc disease of the lumbar spine. IMPRESSION: Bilateral hyperinflation; no active cardiopulmonary disease Reviewed, dictated and finalized at location A.
--- NOTE | 2021-02-17 19:39 | ECG_ITS ---
Measurements Intervals [place] Rate: 95 P: 74 [place]: 168 QRS: 55 QRSD: 85 T: 57 QT: 339 QTc: 427 Interpretive Statements SINUS RHYTHM BASELINE ARTIFACT- I, II, AVR, AVL, AVF NORMAL ECG Electronically Signed On 02-18-2021 14:17:03 CDT by Antonio Richards D.O.
[2021-02-17 19:41] VITALS: BP 179/83; PULSE 94; RESP 18; TEMP 36.7; O2SAT 100
[2021-02-17 19:54] LABS: Basophils Absolute Auto 0.1 K/mm3 (0.0-0.1); Basophils Percent Auto 2.1 % (0.2-1.2); Eosinophils Absolute Auto 0.2 K/mm3 (0-0.3); Eosinophils Percent Auto 2.8 % (0-4.4); Hemoglobin 11.6 g/dL (12.0-15.0); Immature Granulocyte Absolute 0.04 K/mm3 (0.00-0.031); Immature Granulocyte Percent A 0.6 % (0-0.5); Lymphocytes Absolute Auto 1.59 K/mm3 (0.9-3.2); Lymphocytes Percent Auto 25.7 % (18.3-44.2); Mean Corpuscular HGB Conc 36.3 g/dl (32-36); Mean Corpuscular Hemoglobin 35.4 pg (26-34); Mean Corpuscular Volume 97.6 fl (80-100); Mean Platelet Volume 9.1 fl (7.4-10.4); Monocytes Absolute Auto 0.8 K/mm3 (0.1-0.6); Monocytes Percent Auto 12.1 % (2.6-8.5); Neutrophils Absolute Auto 3.5 K/mm3 (1.3-6.7); Neutrophils Percent Auto 56.7 % (45.5-73.1); Platelet Count Result 279 k/mm3 (150-375); Red Blood Count 3.28 M/mm3 (4.2-5.4); White Blood Count 6.2 K/mm3 (4.5-10.0)
--- NOTE | 2021-02-17 20:01 | PC.NURSE ---
Call friend Israel when pt gets room: [phone].
[2021-02-17 20:04] LABS: Prothrombin Time 13.1 Seconds (11.1-14.7)
[2021-02-17 20:05] LABS: Partial Thromboplastin Time 24.8 SECONDS (22.3-36.8)
[2021-02-17 20:15] LABS: Anion Gap 13 mmol/L (8-16); Blood Urea Nitrogen 8 mg/dL (7-17); Calcium 9.1 mg/dL (8.4-10.2); Carbon Dioxide 20 mmol/L (22-30); Chloride 88 mmol/L (98-107); Estimated CRCL calculation 64 ml/min; Estimated Glomerular Filt Rate > 60; Glucose 108 mg/dL (65-110); Potassium 4.1 mmol/L (3.4-5.0); Sodium 121 mmol/L (137-145)
[2021-02-17 20:27] LABS: Troponin I < 0.012 ng/mL (0.000-0.034)
[2021-02-17 21:42] LABS: Alanine Aminotransferase 28 U/L (4-35); Albumin Level 4.5 g/dL (3.5-5.1); Alkaline Phosphatase 89 U/L (38-126); Aspartate Amino Transferase 68 U/L (14-36); Bilirubin,Total 0.5 mg/dL (0.2-1.3); Lipase 86 U/L (23-300)
[2021-02-17 21:53] VITALS: BP 168/94; PULSE 85; RESP 14; TEMP 36.7; O2SAT 100
[2021-02-17 21:57] VITALS: PULSE 88
[2021-02-17 22:01] VITALS: BP 173/83; PULSE 83; RESP 16; O2SAT 99
[2021-02-17] MEDS: ASPIRIN 81 MG CHEWABLE TABLET 324 MG PO (22:06)
[2021-02-17] MEDS: MORPHINE SULFATE (*CRX) 4 MG/ML INJ IV PUSH (22:09)
[2021-02-17] MEDS: NITROGLYCERIN SL 0.4 MG TABLET SUBLINGUAL (22:10)
[2021-02-17] MEDS: BELLADONNA ALK/PHENOB ELIX 10 ML, MAG HYDROX/ALUMINUM HYD/SIMETH 30 ML, LIDOCAINE HCL 2... PO (22:11)
--- NOTE | 2021-02-17 22:59 | PC.NURSE ---
Pt still had complaints of chest discomfort after first dose of nitro, second dose was administered by this RN, pt rates pain 4/10.
[2021-02-17 23:02] VITALS: BP 150/88; PULSE 86; RESP 16; O2SAT 98
[2021-02-17 23:16] VITALS: BP 155/75; PULSE 73; RESP 13; O2SAT 99
[2021-02-17 23:23] LABS: Troponin I < 0.012 ng/mL (0.000-0.034)
--- NOTE | 2021-02-17 23:55 | ED.GENADULT ---
HPI - General Adult General Chief complaint: Chest Pain Stated complaint: chest pain Time Seen by Provider: 02/17/21 21:05 History of Present Illness HPI narrative: Patient is a 65-year-old female presents the emergency department with chief complaint of chest pain. Patient reports that over the last month she has been having intermittent episodes where she gets a tightness feeling in her chest and become short of breath. Patient states that usually worse with exertion. Patient states she seen her primary care physician about this and they had scheduled her for a stress test as an outpatient later this month. Related Data Home Medications Medication Instructions Recorded Confirmed estradiol 1 mg PO DAILY 11/25/19 02/15/21 ibuprofen 400 mg PO Q6H PRN 11/25/19 02/15/21 cholecalciferol (vitamin D3) 25 25 mcg PO DAILY 02/04/20 02/15/21 mcg (1,000 unit) tablet Allergies Allergy/AdvReac Type Severity Reaction Status Date / Time No Known Allergies Allergy Verified 02/17/21 19:44 Review of Systems Review of Systems: A 10 system review of systems was completed on the patient and is negative except for what is stated in the HPI. Nursing and ancillary documentation was reviewed. [facility] Past Medical History Medical History Chronic hyponatremia COPD (chronic obstructive pulmonary disease) Screening for breast cancer Screening for colon cancer Screening for osteoporosis Vitamin D deficiency, unspecified Surgical History Surgical History H/O repair of right rotator cuff H/O toe surgery Neuroma removed H/O: hysterectomy Family History Family History Father Family history of suicide Family history of rheumatoid arthritis Sibling Family history of osteoarthritis Mother Family history of chronic obstructive pulmonary disease Family history of malignant neoplasm Daughter Asthma Social History Social History Social History: She lives with her who she desires to have 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 Patient desires to be a full code. She has 1 daughter who has asthma. She is retired. She is a former smoker. She does not use any alcohol marijuana or any in illicit drugs. Smoking status: Former smoker Tobacco type: cigarettes Second hand tobacco smoke exposure: No Smoking end date: 06/03/00 Alcohol intake: never Substance use: never Gender identity (if verbalized by the patient): Female Spiritual care concerns: No Exam Narrative: GENERAL: Well-appearing, well-nourished, and in no acute distress. HEAD: Normocephalic, atraumatic. EYES: PERRLA and EOMI. ENT: Nares clear, no rhinorrhea or epistaxis. Mucous membranes moist. NECK: Supple. CHEST: Clear to auscultation. No respiratory distress. HEART: Regular rate and rhythm. No murmur heard. Normal peripheral pulses. ABDOMEN: Soft, nontender, nondistended, normal active bowel sounds. EXTREMITIES: Normal range of motion. No edema. SKIN: Warm, dry, no rash. NEURO: No focal deficits. Alert and oriented x3. PSYCH: Normal mood and affect. Course Vital Signs Vital signs: Vital Signs Temperature 36.7 C 02/17/21 19:41 Pulse Rate 94 02/17/21 19:41 Respiratory Rate 18 02/17/21 19:41 Blood Pressure 179/83 H 02/17/21 19:41 Pulse Oximetry 100 02/17/21 19:41 Temperature 36.7 C 02/17/21 21:53 Pulse Rate 73 02/17/21 23:16 Respiratory Rate 13 02/17/21 23:16 Blood Pressure 155/75 H 02/17/21 23:16 Pulse Oximetry 99 02/17/21 23:16 Medical Decision Making Vital Signs Vital Signs: Vital Signs Temperature 36.7 C 02/17/21 19:41 Pulse Rate 94 02/17/21 19:41 Respiratory Rate 18 02/17/21 19:41 Blood Pressure 179/83 H 02/17/21 19:41
[2021-02-18] VITALS (26 sets, daily range): BP systolic 123–152; BP diastolic 55–79; PULSE 69–98; RESP 14–20; TEMP 36–36.8; O2SAT 98–100; BMI 22.4
--- NOTE | 2021-02-18 | ECHO_ITS ---
Patient Info Name: Rosemarie Chung Age: 65 years : 1955 Gender: Female Ht: 65 in Wt: 139 lbs BSA: 1.71 m2 Heart Rhythm: Sinus Rhythm Technical Quality: Good Exam Date: 02/18/2021 7:51 AM Exam Location: [facility] Patient Status: Inpatient Admit Date: 02/18/2021 Staff Ordering Physician: Jordan Iqbal MD Promotions Director: Alexandrea Stephens RDCS Attending Provider: Jordan Iqbal MD Referring Physician: Farida KERNS; Exam Type: CA echo doppler color flow Study Info Indications R07.89 - Other chest pain Complete two-dimensional, color flow and Doppler transthoracic echocardiogram is performed. Summary 1. Complete two-dimensional, color flow and Doppler transthoracic echocardiogram is performed. 2. Trivial mitral and tricuspid valve regurgitation. 3. Otherwise unremarkable echocardiogram. Left Ventricular Outflow Tract Name Value Normal LVOT 2D LVOT Diameter 2.0 cm LVOT Doppler LVOT Peak Gradient 4 mmHg LVOT Mean Gradient 2 mmHg LVOT VTI 25 cm LVOT VTI/AV VTI Ratio 0.9 LVOT Stroke Volume 76 ml LVOT CO 5.3 l/min LVOT CI 3.1 l/min/m2 Pulmonic Valve Name Value Normal PV Doppler PV Peak Gradient 4 mmHg Mitral Valve Name Value Normal MV Doppler MV Decel Daggett 677 cm/s2 MV PHT 53 ms MV Area (PHT) 4.1 cm2 4.0-5.0 MV Diastolic Function MV E Peak Velocity 124 cm/s MV A Peak Velocity 117 cm/s MV E/A 1.1 MV Decel Time 184 ms MV A Wave Duration 120 ms MV Annular TDI MV E/e' (Septal) 15.8 <=8.0 MV E/e' (Lateral) 11.8 <=8.0 MV E/e' (Average) 13.8 Tricuspid Valve Name Value Normal TV Regurgitation Doppler TR Peak Velocity 244 cm/s TR Peak Gradient 19 mmHg
--- NOTE | 2021-02-18 00:01 | PM.IMHP ---
H&P: HPI History of Present Illness Date/Time: 02/18/21 00:01 Chief Complaint: CHEST PAIN Narrative: THIS IS A 65-YEAR-OLD FEMALE WITH PAST MEDICAL HISTORY SIGNIFICANT FOR COPD/EMPHYSEMA, DYSLIPIDEMIA, GERD, FIBROMYALGIA, ARTHRITIS, MYOSITIS, MYALGIA. PATIENT PRESENTED TO THE EMERGENCY ROOM DUE TO CHEST PAIN LOCALIZED TO THE PRECORDIAL AREA STATES THAT WAS HARD FOR HER TO CATCH HER BREATH THIS HAPPENED WHILE SHE WAS DRIVING SHE HAS HAD INTERMITTENT CHEST PAIN FOR THE LAST MONTH OR SO AND SHE IS SCHEDULED FOR A STRESS TEST IN THE OUTPATIENT SETTING AT THE END OF THIS MONTH. PATIENT ALSO HAD LIGHTHEADEDNESS AND NEAR-SYNCOPE SENSATION WHEN THIS HAPPENED SHE DENIES ANY NAUSEA OR VOMITING HOWEVER WHO IS AT BEDSIDE STATES THAT IN THE MORNING IN SHE WAS COLD AND CLAMMY WHEN SHE HAD 1 EPISODE OF CHEST PAIN THIS OF THE CARES AT REST OR WITH EXERTION. UPON ARRIVAL TO EMERGENCY ROOM PRELIMINARY WORKUP HAS BEEN ESSENTIALLY NONREVEALING SHE RECEIVE NITRO SUBLINGUAL DOES SEEM TO RELIEVED HER PAIN HOWEVER WHEN SHE GETS UP AND WALKS PAIN GETS WORSE. PATIENT HAS BEEN PLACED IN OBSERVATION STATUS. Review of Systems Review of Systems: CHEST PAIN Constitutional: Constitutional: Denies chills, Denies fatigue, Denies fever(s), Denies malaise and Denies weakness Eyes: Eyes: Denies change in vision ENT: Denies dysphagia, Denies nasal congestion, Denies nasal discharge, Denies nasal obstruction and Denies odynophagia Cardiovascular: Cardiovascular: Reports chest pain at rest, Reports chest pain with activity, Reports diaphoresis, Denies leg edema, Reports lightheadedness, Denies radiating jaw, neck or arm pain, Denies palpitations, Denies dyspnea, Denies dyspnea on exertion, Denies orthopnea and Denies paroxysmal nocturnal dyspnea Respiratory: Respiratory: Denies cough Gastrointestinal: Gastrointestinal: Denies abdominal pain, Denies nausea and Denies vomiting Genitourinary: Genitourinary: Reports no additional female genitourinary complaints Musculoskeletal: Musculoskeletal: Reports no additional musculoskeletal complaints Integumentary/Breasts: Skin/Breast: Reports system reviewed and no additional complaints, except as docu Neurologic: Reports system reviewed and no additional complaints, except as documented Psychiatric: Psychiatric: Reports no additional psychiatric complaints Endocrine: Endocrine: Reports no additional endocrine complaints Hematologic/Lymphatic: Hematologic/Lymphatic: Reports no additional hematologic/lymphatic complaints Allergic/Immunologic: Allergic/Immunologic: Reports no additional allergic/immunologic complaints PMF Past Medical History Medical History Chronic hyponatremia COPD (chronic obstructive pulmonary disease) Screening for breast cancer Screening for colon cancer Screening for osteoporosis Vitamin D deficiency, unspecified Surgical History Surgical History H/O repair of right rotator cuff H/O toe surgery Neuroma removed H/O: hysterectomy Family History Family History Father Family history of suicide Family history of rheumatoid arthritis Sibling Family history of osteoarthritis Mother Family history of chronic obstructive pulmonary disease Family history of malignant neoplasm Daughter Asthma Social History Social History Social History: She lives with her who she desires to have 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 Patient desires to be a full code. She has 1 daughter who has asthma. She is retired. She is a former smoker. She does not use any alcohol marijuana or any in illicit drugs. Smoking status: Former smoker Tobacco type: cigarettes Second hand tobacco smoke exposure: No Smoking end date: 06/03/00 Alex
[2021-02-18 02:49] LABS: Troponin I < 0.012 ng/mL (0.000-0.034)
[2021-02-18] MEDS: IPRATROPIUM BR 0.02% INH SOLN 0.5 MG/2.5 ML VIAL INHALATION ×4 (02:49→20:21)
[2021-02-18] MEDS: ALBUTEROL SULFATE (*SP) AEROSOL 1 PUFF 2 PUFF INHALATION ×4 (02:49→20:21)
--- NOTE | 2021-02-18 02:59 | ADMGEN ---
This patient, Rosemarie Chung, was admitted to IMU Room 201-01 on 02/18/21 at 0232. Patient/family oriented to hospital policies and general routines including ID bracelet, bed and alarms, visiting hours, pain management, procedures, bathroom and other care routines, personal items, smoking policy, room service/diet, and visiting hours. Information on how to activate the Rapid Response Team has been discussed. Patient/Family are encouraged to report perceived risks to care and to ask questions if they do not understand what they are told or what they should do.
[2021-02-18] MEDS: methylPREDNISolone SOD SUCC 125 MG VIAL IV PUSH (03:21)
[2021-02-18] MEDS: HYDROcodone/acetaminophen (*CRX) 5-325 MG TABLET 1 TAB PO ×3 (03:23→20:13)
[2021-02-18] MEDS: LORazepam (*CRX) 0.5 MG TABLET PO ×3 (03:23→20:14)
[2021-02-18] MEDS: METAXALONE 800 MG TABLET BY MOUTH ×2 (03:42→18:01)
[2021-02-18] MEDS: UMECLIDINIUM/VILANTEROL 62.5-25 MCG ELLIPTA 1 PUFF INHALATION (08:26)
--- NOTE | 2021-02-18 09:08 | PM.CNCAR ---
Assessment and Plan Additional Plan 65-year-old lady who has a prior history of smoking and a history of dyslipidemia presents with exertional symptomatology very typical of an suggestive of angina. Acute coronary syndrome has been ruled out by serial enzymes. She continues to have symptoms with modest activity in the hospital. Believe the best course of action is to proceed with a coronary angiogram rather than a stress test. The patient understands this and is agreeable the procedure in its entirety and risks were explained she wishes to proceed. I will arrange for this to be done Saturday morning or sooner if she becomes more unstable in the hospital Tobias Elmore MD [facility] History of Present Illness History of Present Illness Consult date/time: 02/18/21 09:08 Consult reason: chest pain Reason For Visit: Chest Pain, Exertional Angina Narrative: This is a 65-year-old patient I am seeing at the request of the hospitalist service because of exertional chest pain that began recently and prompted admission to the hospital last evening. Patient has no history of cardiac problems in the past and states that for at least several weeks possibly as long as several months she has been having increasing exertional dyspnea associated with the sensation of a burning and sometimes heavy pain in central precordial region. She was not particularly concerned about this until couple of weeks ago when the symptoms became worse. She went to see her PCP who has her scheduled for an outpatient stress test. Yesterday she felt worse, not with exertion she got up in the morning and felt diaphoretic and very weak. Her who also has heart disease saw that she was pale and brought her to the emergency room for evaluation. In the emergency department her electrocardiogram shows a sinus mechanism with modest nonspecific ST segment changes. Her troponin levels are negative x3 sets. She was treated with aspirin and atorvastatin and admitted to the hospital for further evaluation and management. She states while she is at bedrest she feels well when she does try to get up even just go to the bathroom she does have some mild chest heaviness. Her past medical history is primarily remarkable for chronic back pain she had a fall with and fracture of several levels in her back and has had previous kyphoplasty. She does have a history of prior smoking which was discontinued a couple of decades ago and dyslipidemia for which her PCP recently started atorvastatin. She denies hypertension or diabetes. Review of Systems Constitutional: Constitutional: Reports no additional constitutional complaints Eyes: Eyes: Reports no additional eye complaints ENT: Reports system reviewed and no additional complaints, except as documented Cardiovascular: Cardiovascular: Reports as per HPI Respiratory: Respiratory: Reports as per HPI Gastrointestinal: Gastrointestinal: Reports no additional gastrointestinal complaints Musculoskeletal: Musculoskeletal: Reports no additional musculoskeletal complaints Integumentary/Breasts: Skin/Breast: Reports system reviewed and no additional complaints, except as docu Neurologic: Reports system reviewed and no additional complaints, except as documented Endocrine: Endocrine: Reports no additional endocrine complaints Hematologic/Lymphatic: Hematologic/Lymphatic: Reports no additional hematologic/lymphatic complaints Allergic/Immunologic: Allergic/Immunologic: Reports no additional allergic/immunologic complaints PMFSH Past Medical History Medical History Chronic hyponatremia COPD (chronic obstructive pulmonary disease) Screening for breast cancer Screening for colon cancer Screening for osteoporosis Vitamin D deficiency, unspecified Surgical History Surgical History H/O repair of right rotator cuff H/O toe surg
[2021-02-18] MEDS: ENOXAPARIN 40 MG/0.4 ML SYRINGE SUB-Q (09:22)
[2021-02-18] MEDS: DICLOFENAC SOD 75 MG TABLET.EC BY MOUTH ×2 (09:22→18:01)
[2021-02-18] MEDS: ASPIRIN 81 MG CHEWABLE TABLET PO (09:22)
[2021-02-18] MEDS: estradioL 1 MG TABLET PO (09:23)
[2021-02-18] MEDS: PANTOPRAZOLE 40 MG TABLET BY MOUTH (09:23)
--- NOTE | 2021-02-18 09:35 | PM.IMPN ---
Progress Note: A&P Assessment and Plan (1) Chest pain: Qualifiers: Chest pain type: unspecified Qualified Code(s): R07.9 - Chest pain, unspecified Code(s): R07.9 - Chest pain, unspecified Status: Acute Assessment and Plan: PATIENT IS BEING PLACED IN OBSERVATION INTERMEDIATE CARE UNIT TELEMETRY WILL OBTAIN SERIAL CARDIAC ENZYMES CARDIOLOGY CONSULT ECHOCARDIOGRAM IN THE MORNING (2) Joint pain: Code(s): M25.50 - Pain in unspecified joint Status: Acute Assessment and Plan: TYLENOL NEEDED (3) COPD (chronic obstructive pulmonary disease): Code(s): J44.9 - Chronic obstructive pulmonary disease, unspecified Status: Chronic Assessment and Plan: CONTINUE HOME MED ALBUTEROL ATROVENT NEBULIZER TREATMENTS Q.6 HOURS SOLU-MEDROL 125 MG IV PUSH ONCE CONTINUE TO MONITOR (4) Fibromyalgia: Code(s): M79.7 - Fibromyalgia Status: Acute Assessment and Plan: CONTINUE HOME MEDS (5) Gastroesophageal reflux disease without esophagitis: Code(s): K21.9 - Gastro-esophageal reflux disease without esophagitis Status: Acute Assessment and Plan: CONTINUE PANTOPRAZOLE (6) Hyponatremia: Code(s): E87.1 - Hypo-osmolality and hyponatremia Status: Acute Assessment and Plan: Repeated monitor closely. Subjective Date/time seen: 02/18/21 09:35 Patient was seen during the morning rounds today. Had pain and chest last night but at present feeling okay. No shortness of breath. No abdominal pain, nausea, no vomiting. Mood stable. Review of Systems Constitutional: Constitutional: Denies chills, Denies fatigue, Denies fever(s), Denies malaise and Denies weakness Eyes: Eyes: Denies change in vision ENT: Denies dysphagia, Denies nasal congestion, Denies nasal discharge, Denies nasal obstruction and Denies odynophagia Cardiovascular: Cardiovascular: Reports chest pain at rest, Reports chest pain with activity, Reports diaphoresis, Denies leg edema, Reports lightheadedness, Denies radiating jaw, neck or arm pain, Denies palpitations, Denies dyspnea, Denies dyspnea on exertion, Denies orthopnea and Denies paroxysmal nocturnal dyspnea Respiratory: Respiratory: Denies cough, Denies dyspnea and Denies dyspnea on exertion Gastrointestinal: Gastrointestinal: Denies abdominal pain, Denies dysphagia, Denies nausea, Denies odynophagia and Denies vomiting Genitourinary: Genitourinary: Reports no additional female genitourinary complaints Musculoskeletal: Musculoskeletal: Reports no additional musculoskeletal complaints Integumentary/Breasts: Skin/Breast: Reports system reviewed and no additional complaints, except as docu Neurologic: Reports system reviewed and no additional complaints, except as documented and Denies weakness Psychiatric: Psychiatric: Reports no additional psychiatric complaints Endocrine: Endocrine: Reports no additional endocrine complaints, Denies fatigue and Denies palpitations Hematologic/Lymphatic: Hematologic/Lymphatic: Reports no additional hematologic/lymphatic complaints Allergic/Immunologic: Allergic/Immunologic: Reports no additional allergic/immunologic complaints Exam Narrative: LAYING IN [place] Const: General: cooperative, comfortable, no acute distress, well developed, alert, awake and other (WELL-APPEARING) Nutritional Appearance: thin Orientation/consciousness: patient oriented x3 HENMT: Head: normal to inspection, normocephalic and atraumatic Ears: hearing grossly normal bilaterally General nose exam: Normal external nose present Face and sinus: normal facial exam Mouth: Yes Normal oral and palatal mucosa present Eyes: General: appearance normal, both eyes and all related structures Alignment and Position: alignment normal Sclera: sclerae normal Pupils: Equal, round and reactive pupils present EOM: EOMs intact bilaterally Neck: Neck: normal visual inspection, full ROM, no lymphadenopathy,
[2021-02-18] MEDS: METOPROLOL SUCCINATE EXT REL 25 MG TABCR PO (10:51)
[2021-02-18] MEDS: NITROGLYCERIN OINTMENT 1 INCH DOSE 0.5 INCH TRANSDERM ×3 (11:41→23:42)
[2021-02-18] MEDS: ATORVASTATIN 20 MG TABLET PO (20:13)
[2021-02-19] VITALS (22 sets, daily range): BP systolic 120–142; BP diastolic 54–76; PULSE 74–110; RESP 14–20; TEMP 36.3–36.8; O2SAT 96–100
[2021-02-19] MEDS: IPRATROPIUM BR 0.02% INH SOLN 0.5 MG/2.5 ML VIAL INHALATION ×4 (02:26→20:35)
[2021-02-19] MEDS: ALBUTEROL SULFATE (*SP) AEROSOL 1 PUFF 2 PUFF INHALATION ×4 (02:26→20:35)
[2021-02-19 05:07] LABS: Anion Gap 9 mmol/L (8-16); Blood Urea Nitrogen 9 mg/dL (7-17); Calcium 9.5 mg/dL (8.4-10.2); Carbon Dioxide 25 mmol/L (22-30); Chloride 93 mmol/L (98-107); Estimated CRCL calculation 73 ml/min; Estimated Glomerular Filt Rate > 60; Glucose 107 mg/dL (65-110); Sodium 127 mmol/L (137-145)
[2021-02-19] MEDS: NITROGLYCERIN OINTMENT 1 INCH DOSE 0.5 INCH TRANSDERM ×3 (06:18→18:31)
[2021-02-19] MEDS: HYDROcodone/acetaminophen (*CRX) 5-325 MG TABLET 1 TAB PO ×2 (09:03→18:30)
[2021-02-19] MEDS: LORazepam (*CRX) 0.5 MG TABLET PO ×2 (09:04→18:30)
[2021-02-19] MEDS: ASPIRIN 81 MG CHEWABLE TABLET PO (09:05)
[2021-02-19] MEDS: DICLOFENAC SOD 75 MG TABLET.EC BY MOUTH ×2 (09:05→18:31)
[2021-02-19] MEDS: ENOXAPARIN 40 MG/0.4 ML SYRINGE SUB-Q (09:06)
[2021-02-19] MEDS: estradioL 1 MG TABLET PO (09:06)
[2021-02-19] MEDS: PANTOPRAZOLE 40 MG TABLET BY MOUTH (09:07)
--- NOTE | 2021-02-19 09:30 | PM.PNCARD ---
Progress Note: A&P Additional Plan 65-year-old lady with: Admission with recent onset of exertional chest discomfort and dyspnea symptoms are very suspicious for angina. Plans to proceed with coronary angiography tomorrow morning. Obviously further recommendations to be forthcoming after the angiograms have been completed Tobias Elmore MD [facility] Subjective Date/time seen: Date of service: 02/19/21 09:30 Interval history: Follow-up visit in this 65-year-old lady with: Recent onset of exertional chest discomfort and dyspnea symptoms are rather suspicious for angina. Risk factors include hypertension and dyslipidemia. Decision was made after consultation yesterday to proceed directly with coronary angiography which I will anticipate performing tomorrow morning. Patient is comfortable this morning enjoying her breakfast as I enter the room to see her does not have any cardiovascular symptoms or concerns. All questions answered regarding details of tomorrow morning's procedures including risks and benefits. Exam Const: General: comfortable and no acute distress HENMT: Mouth: Yes moist mucous membranes Eyes: Sclera: sclerae normal Pupils: Equal, round and reactive pupils present Neck: Neck: supple and no JVD Other: Carotid pulses are intact bilaterally no audible bruits Resp: Effort & Inspection: normal respiratory effort Auscultation: clear to auscultation bilaterally Cardio: Rate: regular rate Rhythm: regular rhythm Other: PMI nondisplaced no murmur no gallop GI: GI Palp: Yes Soft to palpation Auscultation: normal bowel sounds Neuro: Cognition (Neuro): normal cognition Extrem: General: normal to inspection Objective Data Vital Signs Vital Signs: Vital Signs - 24 hr 02/18/21 10:00 02/18/21 10:51 02/18/21 12:00 Temperature Pulse Rate 98 92 81 Respiratory Rate Blood Pressure Pulse Oximetry 02/18/21 13:07 02/18/21 14:00 02/18/21 14:33 Temperature 36.8 C Pulse Rate 78 84 87 Respiratory Rate 18 16 Blood Pressure 139/68 Pulse Oximetry 100 02/18/21 14:40 02/18/21 16:00 02/18/21 17:06 Temperature 36.0 C L Pulse Rate 83 87 78 Respiratory Rate 16 18 Blood Pressure 126/63 Pulse Oximetry 100 02/18/21 18:00 02/18/21 20:00 02/18/21 20:21 Temperature 36.4 C Pulse Rate 90 82 86 Respiratory Rate 20 18 Blood Pressure 123/58 L Pulse Oximetry 100 02/18/21 20:23 02/18/21 20:29 02/18/21 22:00 Temperature Pulse Rate 88 79 Respiratory Rate 18 Blood Pressure Pulse Oximetry 99 02/19/21 00:00 02/19/21 02:00 02/19/21 02:25 Temperature 36.3 C L Pulse Rate 81 75 79 Respiratory Rate 16 18 Blood Pressure 124/56 L Pulse Oximetry 100 02/19/21 02:34 02/19/21 04:00 02/19/21 05:41 Temperature 36.4 C Pulse Rate 82 85 74 Respiratory Rate 18 18 Blood Pressure 138/76 Pulse Oximetry 98 02/19/21 07:06 Temperature 36.5 C Pulse Rate 87 Respiratory Rate 18 Blood Pressure 142/72 H Pulse Oximetry 100 Intake/Output Intake/Output: Intake & Output 02/16/21 02/17/21 02/18/21 02/19/21 23:59 23:59 23:59 23:59 Intake Total 1100 Output Total 2300 800 Balance -1200 -800 Meds/Results Medications: Active Medications Generic Name Dose Route Start Last Admin Trade Name Freq PRN Reason Stop Dose Admin Hydrocodone Bitart/Acetaminophen 1 tab 02/18/21 01:26 02/19/21 09:03 Hydrocodone/Acetaminophen (*Crx) 5-325 Mg Tablet PO 1 tab Q8-12H PRN Administration Pain Rated 4-6 Albuterol 1 puff 02/18/21 01:26 Albuterol Sulfate (*Sp) Aerosol 1 Puff INHALATION Q4H PRN shortness of breath or wheezing Albuterol 2 puff 02/18/21 02:00 02/19/21 02:26 Albuterol Sulfate (*Sp) Aerosol 1 Puff INHALATION 2 puff Q6HRT NAHED Administration Aspirin 81 mg 02/18/21 08:00 02/19/21 09:05 Aspirin 81 Mg Chewable Tablet PO 81 mg DAILY@0800 NAHED Administration Atorvastatin Calcium 20 mg 02/18/21
--- NOTE | 2021-02-19 10:12 | PM.IMPN ---
Progress Note: A&P Assessment and Plan (1) Chest pain: Qualifiers: Chest pain type: unspecified Qualified Code(s): R07.9 - Chest pain, unspecified Code(s): R07.9 - Chest pain, unspecified Status: Acute Assessment and Plan: PATIENT IS BEING PLACED IN OBSERVATION INTERMEDIATE CARE UNIT TELEMETRY WILL OBTAIN SERIAL CARDIAC ENZYMES CARDIOLOGY CONSULT ECHOCARDIOGRAM IN THE MORNING (2) Joint pain: Code(s): M25.50 - Pain in unspecified joint Status: Acute Assessment and Plan: TYLENOL NEEDED (3) COPD (chronic obstructive pulmonary disease): Code(s): J44.9 - Chronic obstructive pulmonary disease, unspecified Status: Chronic Assessment and Plan: CONTINUE HOME MED ALBUTEROL ATROVENT NEBULIZER TREATMENTS Q.6 HOURS SOLU-MEDROL 125 MG IV PUSH ONCE CONTINUE TO MONITOR (4) Fibromyalgia: Code(s): M79.7 - Fibromyalgia Status: Acute Assessment and Plan: CONTINUE HOME MEDS (5) Gastroesophageal reflux disease without esophagitis: Code(s): K21.9 - Gastro-esophageal reflux disease without esophagitis Status: Acute Assessment and Plan: CONTINUE PANTOPRAZOLE (6) Hyponatremia: Code(s): E87.1 - Hypo-osmolality and hyponatremia Status: Acute Assessment and Plan: 02/19/21 Cardiology consult noted. Scheduled for angiogram in the morning. Will continue current plan of care and treatment. Case discussed with patient in detail. Subjective Date/time seen: 02/19/21 10:12 Interval history: Follow-up visit in this 65-year-old lady with: Recent onset of exertional chest discomfort and dyspnea symptoms are rather suspicious for angina. Risk factors include hypertension and dyslipidemia. Decision was made after consultation yesterday to proceed directly with coronary angiography which I will anticipate performing tomorrow morning. Patient is comfortable this morning enjoying her breakfast as I enter the room to see her does not have any cardiovascular symptoms or concerns. All questions answered regarding details of tomorrow morning's procedures including risks and benefits. 02/19/2021 Patient was seen during the morning rounds today. Patient denies any chest pain, or shortness of breath. No abdominal pain. Mood stable. Review of Systems Constitutional: Constitutional: Denies chills, Denies fatigue, Denies fever(s), Denies malaise and Denies weakness Eyes: Eyes: Denies change in vision ENT: Denies dysphagia, Denies nasal congestion, Denies nasal discharge, Denies nasal obstruction and Denies odynophagia Cardiovascular: Cardiovascular: Reports chest pain at rest, Reports chest pain with activity, Reports diaphoresis, Denies leg edema, Reports lightheadedness, Denies radiating jaw, neck or arm pain, Denies palpitations, Denies dyspnea, Denies dyspnea on exertion, Denies orthopnea and Denies paroxysmal nocturnal dyspnea Respiratory: Respiratory: Denies cough, Denies dyspnea and Denies dyspnea on exertion Gastrointestinal: Gastrointestinal: Denies abdominal pain, Denies dysphagia, Denies nausea, Denies odynophagia and Denies vomiting Genitourinary: Genitourinary: Reports no additional female genitourinary complaints Musculoskeletal: Musculoskeletal: Reports no additional musculoskeletal complaints Integumentary/Breasts: Skin/Breast: Reports system reviewed and no additional complaints, except as docu Neurologic: Reports system reviewed and no additional complaints, except as documented and Denies weakness Psychiatric: Psychiatric: Reports no additional psychiatric complaints Endocrine: Endocrine: Reports no additional endocrine complaints, Denies fatigue and Denies palpitations Hematologic/Lymphatic: Hematologic/Lymphatic: Reports no additional hematologic/lymphatic complaints Allergic/Immunologic: Allergic/Immunologic: Reports no additional allergic/immunologic complaints [facility]am [facility]
[2021-02-19] MEDS: METAXALONE 800 MG TABLET BY MOUTH ×2 (13:40→21:39)
[2021-02-19] MEDS: ATORVASTATIN 20 MG TABLET PO (21:39)
[2021-02-20] VITALS (20 sets, daily range): BP systolic 108–146; BP diastolic 55–88; PULSE 72–113; RESP 12–20; TEMP 36.3–36.8; O2SAT 96–100
[2021-02-20] MEDS: ALBUTEROL SULFATE (*SP) AEROSOL 1 PUFF 2 PUFF INHALATION ×2 (02:45→07:55)
[2021-02-20] MEDS: IPRATROPIUM BR 0.02% INH SOLN 0.5 MG/2.5 ML VIAL INHALATION ×2 (02:45→07:55)
[2021-02-20] MEDS: HYDROcodone/acetaminophen (*CRX) 5-325 MG TABLET 1 TAB PO ×2 (03:35→12:41)
[2021-02-20] MEDS: LORazepam (*CRX) 0.5 MG TABLET PO (03:36)
[2021-02-20 05:28] LABS: Anion Gap 8 mmol/L (8-16); Blood Urea Nitrogen 10 mg/dL (7-17); Calcium 8.8 mg/dL (8.4-10.2); Carbon Dioxide 24 mmol/L (22-30); Chloride 93 mmol/L (98-107); Estimated CRCL calculation 73 ml/min; Estimated Glomerular Filt Rate > 60; Glucose 100 mg/dL (65-110); Potassium 3.7 mmol/L (3.4-5.0); Sodium 125 mmol/L (137-145)
[2021-02-20] MEDS: NITROGLYCERIN OINTMENT 1 INCH DOSE 0.5 INCH TRANSDERM ×2 (05:52)
[2021-02-20] MEDS: UMECLIDINIUM/VILANTEROL 62.5-25 MCG ELLIPTA 1 PUFF INHALATION (08:09)
[2021-02-20] MEDS: DICLOFENAC SOD 75 MG TABLET.EC BY MOUTH (08:25)
[2021-02-20] MEDS: PANTOPRAZOLE 40 MG TABLET BY MOUTH (08:26)
[2021-02-20] MEDS: METOPROLOL SUCCINATE EXT REL 25 MG TABCR PO (08:26)
[2021-02-20] MEDS: ASPIRIN 81 MG CHEWABLE TABLET PO (08:26)
[2021-02-20] MEDS: estradioL 1 MG TABLET PO (08:26)
--- NOTE | 2021-02-20 09:12 | WPDMODSED ---
Moderate Sedation Note-Pt Data Patient Data Diagnosis: Recent onset of exertional chest discomfort with dyspnea Present Complaint: exertional chest pain/shortness of breath Procedure to be performed/Plan: left heart catheterization Allergies Allergy/AdvReac Type Severity Reaction Status Date / Time No Known Allergies Allergy Verified 02/18/21 03:14 Home Medications Medication Instructions Recorded Confirmed Type estradiol 1 mg PO DAILY 11/25/19 02/18/21 History cholecalciferol (vitamin D3) 25 25 mcg PO DAILY 02/04/20 02/15/21 History mcg (1,000 unit) tablet lorazepam 0.5 mg tablet 0.5 mg PO TID PRN #90 tablet 12/02/20 02/18/21 Rx albuterol sulfate 90 mcg/actuation 1 puff INHALATION Q4H PRN #8.5 g 12/17/20 02/18/21 Rx aerosol inhaler pantoprazole 40 mg tablet,delayed See Rx Instructions .ROUTE 01/09/21 02/18/21 Rx release .COMPLEX #90 tablet diclofenac sodium 75 mg See Rx Instructions .ROUTE 01/12/21 02/18/21 Rx tablet,delayed release .COMPLEX #180 tablet umeclidinium 62.5 mcg-vilanterol See Rx Instructions .ROUTE 02/02/21 02/18/21 Rx 25 mcg/actuation powdr for .COMPLEX #60 each inhalation atorvastatin 20 mg tablet 20 mg PO QHS #90 tablet 02/15/21 02/18/21 Rx fluticasone propionate [Flonase 1 spray INTRANASAL DAILY 02/18/21 02/18/21 History Allergy Relief] hydrocodone-acetaminophen 1 tablet PO Q8-12H PRN 02/18/21 02/18/21 History hyoscyamine sulfate See Rx Instructions .ROUTE 02/18/21 02/18/21 History .COMPLEX PRN metaxalone See Rx Instructions .ROUTE 02/18/21 02/18/21 History .COMPLEX PRN Current Medications: Active Medications Hydrocodone Bitart/Acetaminophen (Hydrocodone/Acetaminophen (*Crx) 5-325 Mg Tablet) 1 tab PO Q8-12H PRN PRN Reason: Pain Rated 4-6 Last Admin: 02/20/21 03:35 Dose: 1 tab Documented by: Albuterol (Albuterol Sulfate (*Sp) Aerosol 1 Puff) 1 puff INHALATION Q4H PRN PRN Reason: shortness of breath or wheezing Albuterol (Albuterol Sulfate (*Sp) Aerosol 1 Puff) 2 puff INHALATION Q6HRT [facility] Last Admin: 02/20/21 07:55 Dose: 2 puff Documented by: Aspirin (Aspirin 81 Mg Chewable Tablet) 81 mg PO DAILY@0800 [facility] Last Admin: 02/20/21 08:26 Dose: 81 mg Documented by: Atorvastatin Calcium (Atorvastatin 20 Mg Tablet) 20 mg PO HS [facility] Last Admin: 02/19/21 21:39 Dose: 20 mg Documented by: Diclofenac Sodium (Diclofenac Sod 75 Mg Tablet.Ec) 75 mg BY MOUTH BIDWM [facility] Last Admin: 02/20/21 08:25 Dose: 75 mg Documented by: Enoxaparin Sodium (Enoxaparin 40 Mg/0.4 Ml Syringe) 40 mg SUB-Q DAILY [facility] Last Admin: 02/19/21 09:06 Dose: 40 mg Documented by: Estradiol (Estradiol 1 Mg Tablet) 1 mg PO DAILY [facility] Last Admin: 02/20/21 08:26 Dose: 1 mg Documented by: Hyoscyamine (Hyoscyamine Sulfate 0.125 Mg Tablet) 0.125 mg BY MOUTH TID PRN PRN Reason: Cramps Ipratropium Granite (Ipratropium Br 0.02% Inh Soln 0.5 Mg/2.5 Ml Vial) 0.5 mg INHALATION Q6HRT [facility] Last Admin: 02/20/21 07:55 Dose: 0.5 mg Documented by: Lorazepam (Lorazepam (*Crx) 0.5 Mg Tablet) 0.5 mg PO TID PRN PRN Reason: anxiety Last Admin: 02/20/21 03:36 Dose: 0.5 mg Documented by: Metaxalone (Metaxalone 800 Mg Tablet) 800 mg BY MOUTH TID PRN PRN Reason: Muscle Pain Last Admin: 02/19/21 21:39 Dose: 800 mg Documented by: Metoprolol Succinate (Metoprolol Succinate Ext Rel 25 Mg Tabcr) 25 mg PO QAM [facility] Last Admin: 02/20/21 08:26 Dose: 25 mg Documented by: Morphine Sulfate (Morphine Sulfate (*Crx) 4 Mg/Ml Inj) 4 mg IV PUSH Q2H PRN PRN Reason: Pain Rated 7-10 Nitroglycerin (Nitroglycerin Sl 0.4 Mg Tablet) 0.4 mg SUBLINGUAL Q5MIN PRN PRN Reason: Chest Pain Nitroglycerin (Nitroglycerin Ointment 1 Inch Dose) 0.5 inch TRANSDERM Q6HR [facility] Last Admin: 02/20/21 05:52 Dose: 0.5 inch Documented by: Ondansetron HCl (Ondansetron Inj 4 Mg/2 Ml Vial) 4 mg IV PUSH Q4H PRN PRN Reason: Nausea Pantoprazole Sodium (Pantoprazole 40 Mg Tablet) 40 mg BY MOUTH DAILY [facility] Last Admin: 02/20/21 08:26 Dose
--- NOTE | 2021-02-20 09:15 | PC.NURSE ---
Pt to rags laborer via stretcher
--- NOTE | 2021-02-20 09:55 | P.PCNCC_ITS ---
Cardiac Cath Procedure Note Date of procedure:: 02/20/21 Performing physician:: Tobias Elmore MD Indication:: recent onset of exertional chest discomfort Brief clinical history:: this is a 65-year-old woman who is reporting the recent onset of exertional chest discomfort with dyspnea. She also has some nonexertional symptom. The patient was admitted to the hospital over the weekend with concern regarding new onset of coronary artery disease. Because of the symptoms angiography has been recommended for this morning Procedure Procedure performed:: left heart catheterization Sedation/Medication given:: fentanyl 50 mg Versed 2 mg case start time 9:37 a.m. case end time 9:50 a.m. Access site:: right femoral artery Estimated blood loss:: 15 cc Procedure note:: patient brought to the cardiac catheterization lab in the postabsorptive state the right femoral triangle was prepared and draped usual fashion. Anesthesia was provided with 1% lidocaine infiltrated locally. Using the modified Seldinger technique a 5 [place] sheath was placed into the common femoral artery after this left heart catheterization was carried out a 5 [place] angled pigtail catheter was used to measure left-sided hemodynamics and to inject the left ventriculogram in the MILLAN projection. After this I used a standard 5 [place] FL4 catheter to engage and inject the left coronary artery and then a standard 5 [place] JR4 catheter to engage inject the right coronary artery. After this the case was terminated Angio-Seal device was deployed at the site of the arterial puncture after an angiogram was done through the sheath. The result was good she left the laborer tan house with no evidence of a groin hematoma. Findings:: Hemodynamics: Central aortic pressure was 166 over 84 left ventricle 166 over for end-diastolic 14 there is no gradient pullback across the aortic valve. Left ventricle: The LV is normal in size contractility looks like to be hyperdynamic with no wall motion abnormalities and a global ejection fraction of 80% the left main coronary artery is widely patent the left anterior descending is a large caliber artery extending down to around the apex. The LAD is rather tortuous but it is smooth and angiographically free of disease. The circumflex is a large caliber vessel giving rise to the marginal branches the circumflex is angiographically smooth and free of disease. The right coronary artery is large caliber and dominant to the posterior circulation the right coronary artery is also smooth and angiographically free of disease. Conclusion:: 1. Right coronary dominant circulation with no evidence of cor onary disease 2. hyperdynamic left ventricular systolic function 3. Angio-Seal to right femoral artery 4. based on these findings her current chest pain symptoms appear to be noncardiac Tobias Elmore MD FACC
--- NOTE | 2021-02-20 10:48 | SUR.PHASEII ---
Lunch is ordered for patient as requested by patient.
--- NOTE | 2021-02-20 11:03 | SUR.PHASEII ---
this RN attempted to call report to pt's RN, as she will be returning to IMU soon. Will try back in 5-10 minutes
--- NOTE | 2021-02-20 11:20 | PC.NURSE ---
Pt returned from cath lab radiology technician via stretcher
--- NOTE | 2021-02-20 15:46 | PM.DS ---
DS: Admitting Diagnosis Discharge Date 02/20/2021 Admitting Diagnosis Non cardiac chest pain DS: Discharge Diagnosis Discharge Diagnosis (1) Chest pain: Qualifiers: Chest pain type: unspecified Qualified Code(s): R07.9 - Chest pain, unspecified Code(s): R07.9 - Chest pain, unspecified Status: Acute Assessment and Plan: Patient was monitored on telemetry. There were no telemetry events. Serial cardiac enzymes were negative. (2) Gastroesophageal reflux disease without esophagitis: Code(s): K21.9 - Gastro-esophageal reflux disease without esophagitis Status: Acute Assessment and Plan: She was treated with pantoprazole (3) Fibromyalgia: Code(s): M79.7 - Fibromyalgia Status: Acute Assessment and Plan: HOme meds were continued. (4) Joint pain: Code(s): M25.50 - Pain in unspecified joint Status: Acute Assessment and Plan: She was managed with tylenol as needed. (5) COPD (chronic obstructive pulmonary disease): Code(s): J44.9 - Chronic obstructive pulmonary disease, unspecified Status: Chronic Assessment and Plan: There waas no evidence of exacerbation. Home meds were continued. ALBUTEROL ATROVENT NEBULIZER TREATMENTS Q.6 HOURS SOLU-MEDROL 125 MG IV PUSH ONCE R (6) Hyponatremia: Code(s): E87.1 - Hypo-osmolality and hyponatremia Status: Acute Assessment and Plan: 02/19/21 Cardiology consult noted. Scheduled for angiogram in the morning. Will continue current plan of care and treatment. Case discussed with patient in detail. DS: Summary Hospital Course Reason for hospitalization: Chest pain Hospital Course: Patient was admitted for recent onset of exertional chest discomfort and dyspnea symptoms are rather suspicious for angina. Risk factors include hypertension and dyslipidemia. Serial cardiac enzymes were negative. There were no recent telemetry events. Decision was made a to proceed directly with coronary angiography. Right coronary dominant circulation with no evidence of coronary disease and hyperdynamic left ventricular systolic function. Patient was diagnosed with non cardiac chest pain, discharged on PPI and tylenol as needed. She will follow up with her PCP within 1 week of discharge. . Time Spent with Patient Time attestation: Total time spent providing and/or coordinating discharge services: DS: Data Data Completed and Pending Labs on day of discharge: Labs from last 24 hours 02/20/21 04:13 Sodium 125 L Potassium 3.7 Chloride 93 L Carbon Dioxide 24 Anion Gap 8 BUN 10 Creatinine 0.60 L Estim Creat Clear Calc 73 Estimated GFR > 60 Glucose 100 Calcium 8.8 Discharge Plan Discharge Attending physician on discharge: Samaria Brand Consulting providers: Tobias Elmore ; Antonio Richards ; Martin Figueroa ; Wade Perez Discharging Clinician: Samaria Brand Anticipated Discharge Date/Time: 02/20/21 16:00 Patient Disposition: Home, Self-Care Activity: october shower Diet: heart healthy Discharge Instructions: [facility] [address] [place] [address] DISCHARGE INSTRUCTIONS - POST CARDIAC CATH Activity restrictions 1. No driving for 24 hours. 2. No lifting, pushing or pulling more than 10 pounds for 1 week. 3. No strenuous exercise or activity (including sexual activity) for 1 wee
== END 2021-02-20 16:45 | disposition home or self-care (01) | DRG 287 ==
LOC: ANHED 02-18 → ANHIMU 02-18 00:50
PROVIDERS: Internal Medicine; Specialist; Admitting Provider Internal Medicine; Emergency Provider Emergency Medicine; PCP Internal Medicine; Visit Provider Internal Medicine
PROC: 4A023N7 Measurement of Cardiac Sampling and Pressure, Left Heart, Percutaneous Approach (ICD-10-PCS; CPT 93452; principal; 2021-02-20 09:00)
PROC: 4A023N7 Measurement of Cardiac Sampling and Pressure, Left Heart, Percutaneous Approach (ICD-10-PCS; 2021-02-20 09:00)
DX: R07.89 Other chest pain (principal); E87.1 Hypo-osmolality and hyponatremia; J44.9 Chronic obstructive pulmonary disease, unspecified; M19.90 Unspecified osteoarthritis, unspecified site; M79.7 Fibromyalgia; K21.9 Gastro-esophageal reflux disease without esophagitis; I10 Essential (primary) hypertension; E78.5 Hyperlipidemia, unspecified; E55.9 Vitamin D deficiency, unspecified; Z90.710 Acquired absence of both cervix and uterus; Z87.891 Personal history of nicotine dependence
CPT/HCPCS: 36415; 71046; 80048; 80076; 83690; 84484; 85025; 85610; 85730; 93005; 93306; 93458; 94640; 96372; 96374; 96375; 99285; A9270; C1760; C1887; C1894; G0269; G0378; J1644; J1650; J2250; J2270; J2930; J3010; J7040

== ENCOUNTER → 2021-03-20 14:51 | Outpatient (CLI) | payer BC, SELFPAY ==
--- NOTE | ~2021-03-20 | MM_ITS ---
EXAMINATION: MM screening carmen BI w daljit HISTORY: Screening mammogram TECHNIQUE: Craniocaudal and mediolateral oblique 3-D tomosynthesis images were obtained and synthetic 2-D images were generated. CAD analysis was submitted and interpreted. COMPARISON: 12/30/2019, 11/13/2018, 07/24/2017 bilateral digital screening mammogram examinations BREAST PARENCHYMAL COMPOSITION: There are scattered areas of fibroglandular density. FINDINGS: Scattered bilateral benign calcifications. There is no evidence of suspicious mass, calcifi cation, or architectural distortion to suggest malignancy in either breast. There has been no suspici ous interval change. IMPRESSION: 1. No mammographic evidence of malignancy. 2. Recommend routine screening mammography in one year. BI-RADS Category 2: Benign finding(s). Reviewed, dictated and finalized at location A.
== END ==
PROVIDERS: PCP Internal Medicine; Visit Provider Nurse Practitioner
DX: Z12.31 Encounter for screening mammogram for malignant neoplasm of breast (principal)
CPT/HCPCS: 77063; 77067

== ENCOUNTER → 2021-03-28 15:54 | Outpatient (CLI) | payer BC, SELFPAY ==
--- NOTE | ~2021-03-28 | XR_ITS ---
XR hand BI arthritis min 3V 03/28/2021 16:54 Indication: Joint pain Procedure: 4 views each hand Comparison: 09/03/2013 Findings: There is anatomic alignment. There is mild polyarticular osteoarthritis of the interphalang eal joints. There are mild degenerative changes of the first metacarpal phalangeal joint. No erosive changes. No acute fracture or traumatic malalignment. No focal soft tissue abnormality. No foreign mercy dies. There are mild degenerative changes of the left second and third metacarpophalangeal joints. 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 Reviewed, dictated and finalized at location A. 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
--- NOTE | ~2021-03-28 | XR_ITS ---
XR foot RT min 3V, XR foot LT min 3V 03/28/2021 16:54 Indication: Bilateral foot pain Procedure: 4 views each foot Comparison: No prior studies for comparison. Findings: There is mild osteoarthritis of the first metatarsal-phalangeal joints bilaterally. No othe r fracture or traumatic malalignment. No significant soft tissue abnormality. No foreign bodies. Lisf ranc joint intact. Impression: 1: Mild bilateral osteoarthritis of the first metatarsal-phalangeal joints. Reviewed, dictated and finalized at location A. Impression: 1: Mild bilateral osteoarthritis of the first metatarsal-phalangeal joints. Impression: 1: Mild bilateral osteoarthritis of the first metatarsal-phalangeal joints.
== END ==
PROVIDERS: PCP Internal Medicine
DX: M25.50 Pain in unspecified joint (principal); M15.9 Polyosteoarthritis, unspecified
CPT/HCPCS: 73130; 73630

== ENCOUNTER 2021-05-28 09:26 | Inpatient (IN) | payer BC, SELFPAY ==
[2021-05-28] VITALS (8 sets, daily range): BP systolic 121–144; BP diastolic 57–73; PULSE 78–112; RESP 16–25; TEMP 36.3–36.8; O2SAT 93–97; BMI 21.6
--- NOTE | ~2021-05-28 | US_ITS ---
EXAMINATION: US abdomen limited DATE: 05/29/2021 11:37 INDICATION: Abnormal liver function tests. TECHNIQUE: Multiple grayscale and Doppler ultrasound images of the abdomen were obtained. COMPARISON: Chest CT 05/28/2021 FINDINGS: The visualized portions of the head and body of the pancreas are normal. There is diffuse h epatic steatosis. No liver surface nodularity. There is normal flow in main portal vein. The gallblad rachel is normal size. Gallstones or gallbladder wall thickening. There was no sonographic Pace sign. The common duct is normal and measures 5 mm. IMPRESSION: 1. Diffuse hepatic steatosis. Reviewed, dictated and finalized at location A. WAY DESIGNER
--- NOTE | ~2021-05-28 | XR_ITS ---
EXAMINATION: XR chest 2V EXAM DATE: 05/31/2021 07:49 INDICATION: Pneumonia. Cough and shortness of breath. TECHNIQUE: Frontal and lateral projections of the chest obtained and reviewed. Comparison is made to prior examination from 05/28/2021. FINDINGS: There is multi segmental left lower lobe, subsegmental right basilar pneumonia, with mild i mprovement compared to prior exam. No pneumothorax or pleural effusion. Cardiomediastinal silhouette is normal. Mild thoracolumbar scoliosis. IMPRESSION: Left greater than right basilar pneumonia, mild improvement. Reviewed, dictated and finalized at location A. OR LPN
--- NOTE | ~2021-05-28 | CT_ITS ---
EXAMINATION: CTA chest PE protocol DATE: 05/28/2021 12:36 INDICATION: Shortness of breath, chest pain TECHNIQUE: Computed tomography angiography (CTA) of the chest was performed with 100 mL Omnipaque-350 intravenous contrast timed to evaluate the pulmonary arteries. Coronal maximum intensity projection 3D-reconstructions were created by the technologist. Automated exposure control and iterative reconst ruction technique were employed. Exam dose: 241.79 mGy-cm total exam DLP. COMPARISON: 05/28/2021 PA and lateral chest FINDINGS: Normal heart size. No pericardial effusion or pleural effusion. No thoracic aortic aneurysm or dissection. No hilar or mediastinal mass lesion or lymphadenopathy. There is moderate opacification of the pulmonary arteries and no evidence of pulmonary embolism. Moderate emphysematous changes of the lungs. There are patchy infiltrates of the left upper lobe, middle lobe, right lower lobe and more prominent patchy consolidation of the left lower lobe. Rotatory levoscoliosis and severe degenerative disc disease of the lumbar spine. IMPRESSION: Bilateral pneumonia, greatest in the left lower lobe No evidence of pulmonary embolism Emphysema Reviewed, dictated and finalized at Location A. Reviewed, dictated and finalized at location A. NICAL SALES DIRECTOR
--- NOTE | ~2021-05-28 | XR_ITS ---
XR chest 2V DATE: 05/28/2021 09:48 INDICATION: Chest pain, shortness of breath TECHNIQUE: PA and lateral views COMPARISON: 02/17/2021 PA and lateral chest FINDINGS: There are patchy infiltrates in the mid and lower lung zones, left greater than right, new since . Diffusion diagnosis includes bilateral pneumonia, less likely aspiration pneumonitis . Normal heart size. No hilar or mediastinal enlargement. No pleural effusion or pulmonary vascular con gestion or pneumothorax is detected. There is mild dextro scoliosis of the thoracic spine. There is prominent rotatory levoscoliosis and degenerative change of the lumbar spine. IMPRESSION: New patchy mid and lower lung infiltrates, left greater than right, since 02/17/2021, most likely due to bilateral pneumonia Reviewed, dictated and finalized at location A. TESTER
--- NOTE | 2021-05-28 09:27 | ECG_ITS ---
Measurements Intervals [place] Rate: 111 P: 65 MT: 150 QRS: 55 QRSD: 90 T: 49 QT: 313 QTc: 425 Interpretive Statements SINUS TACHYCARDIA MINIMAL Q WAVES- INF/LAT LEADS ABNORMAL ECG Electronically Signed On 05-28-2021 17:43:39 [employer] by Antonio Richards D.O.
[2021-05-28 09:42] LABS: Hemoglobin 13.1 g/dL (12.0-15.0); Mean Corpuscular HGB Conc 36.4 g/dl (32-36); Mean Corpuscular Volume 96.3 fl (80-100); Mean Platelet Volume 9.2 fl (7.4-10.4); Platelet Count Result 215 k/mm3 (150-375); Red Blood Count 3.74 M/mm3 (4.2-5.4); Red Cell Distribution Width 12.5 % (11.5-14.5); White Blood Count 9.8 K/mm3 (4.5-10.0)
[2021-05-28 10:02] LABS: Prothrombin Time 13.5 Seconds (11.1-14.7)
[2021-05-28 10:03] LABS: Partial Thromboplastin Time 28.3 SECONDS (22.3-36.8)
[2021-05-28 10:05] LABS: Troponin I < 0.012 ng/mL (0.000-0.034)
[2021-05-28 10:16] LABS: Band Neutrophils Percent 17 % (0-6); Lymphocytes Absolute Manual 0.49 K/mm3 (1.1-4.5); Monocytes Absolute Manual 0.49 K/mm3 (0.1-0.90); Monocytes Percent Manual 5 % (3-9); Neutrophils Absolute Manual 8.82 K/mm3 (1.7-7.2); Neutrophils Percent Manual 73 % (46-73); Platelet Estimate Adequate (Adequate); Total Cells Counted 100
[2021-05-28 10:22] LABS: Alanine Aminotransferase 63 U/L (4-35); Albumin Level 4.4 g/dL (3.5-5.1); Alkaline Phosphatase 175 U/L (38-126); Anion Gap 10 mmol/L (8-16); Aspartate Amino Transferase 200 U/L (14-36); Bilirubin,Total 1.3 mg/dL (0.2-1.3); Blood Urea Nitrogen 7 mg/dL (7-17); Calcium 9.2 mg/dL (8.4-10.2); Carbon Dioxide 23 mmol/L (22-30); Chloride 89 mmol/L (98-107); Estimated CRCL calculation 76 ml/min; Estimated Glomerular Filt Rate > 60; Glucose 120 mg/dL (65-110); Lipase 18 U/L (23-300); Potassium 4.1 mmol/L (3.4-5.0); Sodium 122 mmol/L (137-145)
--- NOTE | 2021-05-28 11:58 | ED.GENADULT ---
HPI - General Adult General Chief complaint: Chest Pain Stated complaint: CP, SOB, weak, n/d Time Seen by Provider: 05/28/21 10:50 Source: patient Mode of arrival: ambulatory Limitations: no limitations History of Present Illness HPI narrative: Patient presents for evaluation of respiratory symptoms. She indicates she has had a productive cough of green sputum with associated shortness of breath and chest tightness. Her cough and shortness of breath started about a week ago. She developed chest tightness yesterday. She has experienced fatigue and chills without fever. She further endorses nausea, vomiting, diarrhea. Her is developing similar symptoms. She has an underlying history of hyperlipidemia, fibromyalgia, chronic low back pain, and COPD. She is a former smoker. She had a cardiac cath in February of this year which was negative. She states she has been using Robitussin for symptoms. She contacted her primary care provider this week and was told that she needed to have a Covid test performed. She had one done on 05/26/2021 which was negative. She has been using her albuterol inhaler more often. She used a family member's neb and states that was helpful in symptom reduction. She has received both doses of her Covid vaccine. Related Data Home Medications Medication Instructions Recorded Confirmed estradiol 1 mg PO DAILY 11/25/19 02/18/21 cholecalciferol (vitamin D3) 25 25 mcg PO DAILY 02/04/20 02/20/21 mcg (1,000 unit) tablet fluticasone propionate [Flonase 1 spray INTRANASAL DAILY 02/18/21 02/18/21 Allergy Relief] hydrocodone-acetaminophen 1 tablet PO Q8-12H PRN 02/18/21 02/18/21 hyoscyamine sulfate See Rx Instructions .ROUTE 02/18/21 02/18/21 .COMPLEX PRN Allergies Allergy/AdvReac Type Severity Reaction Status Date / Time No Known Allergies Allergy Verified 05/28/21 10:03 Review of Systems Review of Systems: CONSTITUTIONAL: Reports chills and fatigue. Denies fever. EYES: Denies visual changes, redness, or discharge. ENT: Reports sinus congestion, sore throat. Denies otalgia. CARDIOVASCULAR: Reports chest tightness without overt chest pain. Denies palpitations and edema. RESPIRATORY: Reports productive cough of green-yellow sputum and shortness of breath. GASTROINTESTINAL: Reports nausea, vomiting, diarrhea. Denies abdominal pain. GENITOURINARY: Denies dysuria or hematuria. SKIN: Denies rash or itching. MUSCULOSKELETAL: Reports chronic low back pain. Reports generalized body aches. D NEUROLOGIC: Reports generalized weakness. Denies headache, numbness, or weakness PSYCHIATRIC: Denies anxiety or depression. [facility] Past Medical History Medical History Chronic hyponatremia COPD (chronic obstructive pulmonary disease) Screening for breast cancer Screening for colon cancer Screening for osteoporosis Vitamin D deficiency, unspecified Surgical History Surgical History H/O repair of right rotator cuff H/O toe surgery Neuroma removed H/O: hysterectomy Family History Family History Father Family history of suicide Family history of rheumatoid arthritis Sibling Family history of osteoarthritis Mother Family history of chronic obstructive pulmonary disease Family history of malignant neoplasm Daughter Asthma Social History Social History Social History: She lives with her who she desires to have is her durable to 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 Patient desires to be a full code. She has 1 daughter who has asthma. She is retired. She is a former smoker. She does not use any alcohol marijuana or any in illicit drugs. Smoking packs per day: 2 Smoking cigarettes per day: 40.0 Years smoked: 25 Smoking pack-years: 50.00 [place]
[2021-05-28] MEDS: ALBUTEROL SULFATE (*SP) AEROSOL 1 PUFF 2 PUFF INHALATION (12:07)
[2021-05-28 12:44] LABS: Lactic Acid Reflex 1.5 mmol/L (0.7-2.1)
[2021-05-28 12:57] LABS: Troponin I < 0.012 ng/mL (0.000-0.034)
[2021-05-28 14:34] LABS: Creatine Kinase 40 U/L (30-135); Lactate Dehydrogenase 461 U/L (313-618)
[2021-05-28 14:47] LABS: CRP 24.5 mg/dL (<1.0)
--- NOTE | 2021-05-28 16:00 | PM.IMHP ---
H&P: HPI History of Present Illness Date/Time: 05/28/21 16:00 Chief Complaint: Cough and shortness of breath. Narrative: This is a very pleasant 65-year-old female with COPD with emphysema and chronic hyponatremia presented to the emergency department earlier today from home for evaluation of cough and shortness of breath. She has been feeling unwell for approximately 1 week with multiple symptoms including cough productive of green phlegm, shortness of breath, fatigue, chills, nausea, vomiting, and diarrhea which has improved somewhat. Yesterday she started feeling tightness in her chest however only when attempting to take in a deep breath. She has been taking Robitussin and using a family member's nebulizer at home without a whole lot of improvement in her symptoms and she called and spoke with her doctor regarding her symptoms and she had a COVID test done on 05/26/2021 which was negative, per patient report. Unfortunately she continues to feel poorly and she came in today for evaluation. She denies syncope and near syncope, exertional chest pain, pleuritic pain, orthopnea, PND, and lower extremity edema. She denies sick contacts and recent travel. She has received 2 doses of the COVID vaccination. Review of Systems Review of Systems: Twelve systems were reviewed and are negative except for as per HPI. [facility] Past Medical History Medical History Anxiety Chronic hyponatremia COPD with emphysema Degenerative disc disease Gastroesophageal reflux disease Vitamin D deficiency, unspecified Surgical History Surgical History (Updated 05/28/21 @ 16:24 by Selina Mckinney PA-C) History of cardiac catheterization (02/2021) Right coronary dominant circulation with no evidence of coronary disease. History of section History of colonoscopy with polypectomy History of hysterectomy History of kyphoplasty History of repair of right rotator cuff History of tubal ligation Status post excision of Hernández's neuroma Family History Family History Father Family history of suicide Family history of rheumatoid arthritis Sibling Family history of osteoarthritis Mother Family history of chronic obstructive pulmonary disease Family history of malignant neoplasm Daughter Asthma Social History Social History (Updated 05/28/21 @ 22:27 by Selina Mckinney PA-C) Social History: Surrogate decision maker: Israel Chung, spouse. Code status: Full code. Smoking packs per day: 2 Smoking cigarettes per day: 40.0 Years smoked: 25 Smoking pack-years: 50.00 Smoking status: Former smoker Tobacco type: cigarettes Smoking end date: 06/03/00 Alcohol intake: current Drinks per week: 5 Substance use: never Substance use type: does not use Additional living arrangements comments: The patient lives in [place] with her . Additional occupation/education comments: [employer] at [employer]. Meds Home Medications and Allergies Home Medications Medication Instructions Recorded Confirmed Type estradiol 1 mg PO DAILY 11/25/19 05/28/21 History cholecalciferol (vitamin D3) 25 25 mcg PO DAILY 02/04/20 05/28/21 History mcg (1,000 unit) tablet lorazepam 0.5 mg tablet 0.5 mg PO TID PRN #90 tablet 12/02/20 05/28/21 Rx atorvastatin 20 mg tablet 20 mg PO QHS #90 tablet 02/15/21 05/28/21 Rx fluticasone propionate [Flonase 1 spray INTRANASAL DAILY 02/18/21 05/28/21 History Allergy Relief] hydrocodone-acetaminophen 1 tablet PO TID PRN 02/18/21 05/28/21 History hyoscyamine sulfate 0.125 mg PO Q4H PRN 02/18/21 05/28/21 History benzonatate 200 mg capsule 200 mg PO TID PRN #30 cap 02/22/21 05/28/21 Rx albuterol sulfate 2 puff INHALATION Q4H PRN 05/28/21 05/28/21 History carboxymethylcellulose sodium 2 drp EACH EYE BID PRN 05/28/21 05/28/21 History [Refresh] diclofenac sodium 75 mg
[2021-05-28 16:49] LABS: Creatinine Urine 175.7 mg/dL
[2021-05-28 17:08] LABS: Sodium Urine Random < 5 meq/L
--- NOTE | 2021-05-28 17:21 | ADMGEN ---
This patient, Rosemarie Chung, was admitted to [facility] Surg Room 328-01. Patient/family oriented to hospital policies and general routines including ID bracelet, bed and alarms, visiting hours, pain management, procedures, bathroom and other care routines, personal items, smoking policy, room service/diet, and visiting hours. Information on how to activate the Rapid Response Team has been discussed. Patient/Family are encouraged to report perceived risks to care and to ask questions if they do not understand what they are told or what they should do.
[2021-05-28 17:40] LABS: Troponin I < 0.012 ng/mL (0.000-0.034)
[2021-05-28] MEDS: SODIUM CHLORIDE 0.9% IV 1,000 ML 100 ML IV CONT (19:09)
[2021-05-28 19:56] LABS: Thyroid Stimulating Hormone Reflex 0.551 uIU/mL (0.465-4.68)
[2021-05-28 19:57] LABS: Hepatitis B Surface Antigen Negative (Negative)
[2021-05-28 20:02] LABS: HAV RESULT Negative (Negative); Hepatitis B Core IgM Result Negative (Negative)
[2021-05-28 20:14] LABS: Hepatitis C Virus Antibody Negative (Negative)
[2021-05-28] MEDS: ALBUTEROL SULFATE NEB 2.5 MG/0.5 ML INH 5 MG INHALATION (21:01)
[2021-05-28] MEDS: IPRATROPIUM BR 0.02% INH SOLN 0.5 MG/2.5 ML VIAL INHALATION (21:01)
[2021-05-28 23:14] LABS: Creatine Kinase 36 U/L (30-135)
[2021-05-28 23:52] LABS: Sodium 119 mmol/L (137-145)
[2021-05-29] VITALS (17 sets, daily range): BP systolic 116–144; BP diastolic 56–72; PULSE 77–100; RESP 15–20; TEMP 35.9–36.6; O2SAT 92–100
[2021-05-29] MEDS: guaiFENesin 12 HR 600 MG TABCR PO ×3 (00:23→21:21)
[2021-05-29] MEDS: IPRATROPIUM BR 0.02% INH SOLN 0.5 MG/2.5 ML VIAL INHALATION ×3 (02:03→21:35)
[2021-05-29] MEDS: ALBUTEROL SULFATE NEB 2.5 MG/0.5 ML INH INHALATION ×3 (02:03→21:35)
[2021-05-29 02:59] LABS: Hematocrit 34.2 % (37.0-47.0); Mean Corpuscular HGB Conc 35.1 g/dl (32-36); Mean Corpuscular Hemoglobin 34.2 pg (26-34); Mean Corpuscular Volume 97.4 fl (80-100); Mean Platelet Volume 9.8 fl (7.4-10.4); Platelet Count Result 207 k/mm3 (150-375); Red Blood Count 3.51 M/mm3 (4.2-5.4); Red Cell Distribution Width 12.6 % (11.5-14.5); White Blood Count 14.6 K/mm3 (4.5-10.0)
[2021-05-29 03:12] LABS: Alanine Aminotransferase 45 U/L (4-35); Albumin Level 3.9 g/dL (3.5-5.1); Alkaline Phosphatase 166 U/L (38-126); Anion Gap 2 mmol/L (8-16); Aspartate Amino Transferase 76 U/L (14-36); Bilirubin,Total 0.9 mg/dL (0.2-1.3); Blood Urea Nitrogen 10 mg/dL (7-17); Carbon Dioxide 27 mmol/L (22-30); Chloride 92 mmol/L (98-107); Estimated CRCL calculation 90 ml/min; Estimated Glomerular Filt Rate > 60; Glucose 140 mg/dL (65-110); Potassium 3.5 mmol/L (3.4-5.0); Sodium 121 mmol/L (137-145)
[2021-05-29 03:13] LABS: Magnesium 1.8 mg/dL (1.6-2.3)
[2021-05-29 03:41] LABS: Band Neutrophils Percent 19 % (0-6); Lymphocytes Absolute Manual 1.02 K/mm3 (1.1-4.5); Monocytes Absolute Manual 0.87 K/mm3 (0.1-0.90); Monocytes Percent Manual 6 % (3-9); Neutrophils Percent Manual 68 % (46-73); Total Cells Counted 100
[2021-05-29 03:42] LABS: Platelet Estimate Adequate (Adequate)
[2021-05-29] MEDS: HYDROcodone/acetaminophen (*CRX) 5-325 MG TABLET 1 TAB PO ×2 (05:00→21:25)
[2021-05-29 07:07] LABS: Sodium 120 mmol/L (137-145)
[2021-05-29] MEDS: CHOLECALCIFEROL 1,000 UNITS TABLET 1000 UNITS PO (09:07)
[2021-05-29] MEDS: MULTIVITAMINS /C LUTEIN (CENTRUM SILVER) TABLET *BKC 1 TAB PO (09:07)
[2021-05-29] MEDS: ENOXAPARIN 40 MG/0.4 ML SYRINGE SUB-Q (09:07)
[2021-05-29] MEDS: VITAMIN E 400 UNIT CAPSULE PO (09:07)
[2021-05-29] MEDS: DICLOFENAC SOD 75 MG TABLET.EC PO ×2 (09:07→16:37)
[2021-05-29] MEDS: OMEGA 3 POLYUNSAT FATTY ACIDS 1 GM CAP PO (09:07)
[2021-05-29] MEDS: FLUTICASONE PROPIONATE 0.05% NA SPR 16 GM BTL (*BKC) 1 SPRAY NASAL (09:07)
[2021-05-29] MEDS: predniSONE 20 MG TABLET 40 MG PO (10:11)
[2021-05-29] MEDS: PANTOPRAZOLE 40 MG TABLET PO (10:11)
[2021-05-29 13:43] LABS: Sodium 124 mmol/L (137-145)
--- NOTE | 2021-05-29 14:57 | PM.IMPN ---
Progress Note: A&P Assessment and Plan (1) Pneumonia: Code(s): J18.9 - Pneumonia, unspecified organism Status: Acute Assessment and Plan: CTA shows bilateral pneumonia but more prominent in the left lobe. No PE identified. -continue ceftriaxone and azithromycin -COVID-19 PCR pending although this seems less likely. Influenza negative -urine antigens pending -continue oral prednisone due to history of COPD and pneumonia -she is not requiring oxygen at this time (2) Person under investigation for COVID-19: Code(s): Z20.822 - Contact with and (suspected) exposure to COVID-19 Status: Acute Assessment and Plan: The patient did received 2 doses of the COVID vaccination but given the community prevalence she has been swabbed and will remain in isolation pending SARS-CoV-2 by PCR. (3) COPD with emphysema: Code(s): J43.9 - Emphysema, unspecified Status: Acute Assessment and Plan: Continue oral prednisone as above (4) Chronic hyponatremia: Code(s): E87.1 - Hypo-osmolality and hyponatremia Status: Acute Assessment and Plan: She typically runs low when she is in the hospital and was pretty low today at 120 -she has been low on every lab in 2020 and 2020 and ranges from 114-127 -outpatient labs show on June 27, 2018 her sodium was normal at 134 -TSH is normal. Urine sodium is less than 5, no salt wasting noted -check cortisol -alcohol use? Seems less likely. Legionella? (5) Elevated LFTs: Code(s): R79.89 - Other specified abnormal findings of blood chemistry Status: Acute Assessment and Plan: Noted to be elevated in the past but much more elevated yesterday -they are back down to her baseline. Right upper quadrant ultrasound shows fatty liver -monitor Time Spent With Patient Time with patient: 25 - 35 minutes Subjective Date/time seen: 05/29/21 14:57 Interval history: Pt is a 65-year-old female here for pneumonia. Patient was seen today and states she was doing well up until this afternoon when she started moving around more and she felt short of breath. She continues to cough and have stabbing chest pain when she does cough. She denies nausea, vomiting, fevers, chills, abdominal pain, diarrhea or constipation. Review of Systems Review of Systems: All systems reviewed & are unremarkable except as noted in HPI and below Exam Narrative: General: Well developed well nourished patient in NAD HEENT: normocephalic Neck: supple Neuro: Alert and oriented x4 CV:RRR Resp: Wheezing bilaterally, worse in the left lung. No conversational dyspnea. Oxygen was 98% on room air during my exam Abd: Soft, non distended. No pain to palpation. Positive bowel sounds Extremities: No swelling, erythema, or pain to palpation. Objective Data Vital Signs Vital Signs: Vital Signs - 24 hr 05/28/21 16:30 05/28/21 17:25 05/28/21 20:00 Temperature Pulse Rate 78 90 93 Respiratory Rate 16 20 Blood Pressure 129/61 Pulse Oximetry 97 94 05/28/21 21:03 05/28/21 21:10 05/28/21 22:42 Temperature 97.3 F L Pulse Rate 89 90 93 Respiratory Rate 18 19 20 Blood Pressure 121/57 L Pulse Oximetry 94 05/29/21 00:00 05/29/21 00:34 05/29/21 02:03 Temperature 96.9 F L Pulse Rate 84 100 89 Respiratory Rate 20 15 Blood Pressure 137/66 Pulse Oximetry 94 05/29/21 02:12 05/29/21 04:00 05/29/21 06:15 Temperature 97.8 F Pulse Rate 93 95 80 Respiratory Rate 19 18 Blood Pressure 116/56 L Pulse Oximetry 97 05/29/21 08:00 05/29/21 09:05 05/29/21 09:48 Temperature 97.3 F L Pulse Rate 77 82 91 Respiratory Rate 20 18 Blood Pressure 122/59 L Pulse Oximetry 96 05/29/21 10:00 05/29/21 12:00 Temperature 97.4 F L Pulse Rate 90 90 Respiratory Rate 18 20 Blood Pressure 133/66 Pulse Oximetry 92 95 Intake/Output Intake/Output: Intake & Output 05/26/21 05/27/21
[2021-05-29 19:04] LABS: SARS-CoV-2 RNA PCR Negative
[2021-05-29] MEDS: LORazepam (*CRX) 0.5 MG TABLET PO (21:25)
[2021-05-30] VITALS (9 sets, daily range): BP systolic 122–177; BP diastolic 71–89; PULSE 69–108; RESP 18–24; TEMP 36.1–36.6; O2SAT 90–100
--- NOTE | 2021-05-30 03:47 | PCRCNOTE ---
past scheduled time for administration- see next available administration
[2021-05-30 06:47] LABS: Hematocrit 32.4 % (37.0-47.0); Hemoglobin 11.4 g/dL (12.0-15.0); Mean Corpuscular HGB Conc 35.2 g/dl (32-36); Mean Corpuscular Hemoglobin 33.7 pg (26-34); Mean Corpuscular Volume 95.9 fl (80-100); Mean Platelet Volume 10.1 fl (7.4-10.4); Platelet Count Result 232 k/mm3 (150-375); Red Blood Count 3.38 M/mm3 (4.2-5.4); Red Cell Distribution Width 11.9 % (11.5-14.5); White Blood Count 10.1 K/mm3 (4.5-10.0)
[2021-05-30 07:25] LABS: Alanine Aminotransferase 28 U/L (4-35); Albumin Level 3.6 g/dL (3.5-5.1); Alkaline Phosphatase 131 U/L (38-126); Anion Gap 4 mmol/L (8-16); Aspartate Amino Transferase 34 U/L (14-36); Bilirubin,Total 0.4 mg/dL (0.2-1.3); Blood Urea Nitrogen 12 mg/dL (7-17); CRP 18.8 mg/dL (<1.0); Calcium 9.1 mg/dL (8.4-10.2); Carbon Dioxide 24 mmol/L (22-30); Chloride 97 mmol/L (98-107); Estimated CRCL calculation 90 ml/min; Estimated Glomerular Filt Rate > 60; Glucose 118 mg/dL (65-110); Potassium 3.3 mmol/L (3.4-5.0); Sodium 125 mmol/L (137-145)
[2021-05-30] MEDS: POTASSIUM CHLORIDE 20 MEQ TABLET 40 MEQ PO (07:59)
[2021-05-30] MEDS: ENOXAPARIN 40 MG/0.4 ML SYRINGE SUB-Q (07:59)
[2021-05-30] MEDS: VITAMIN E 400 UNIT CAPSULE PO (07:59)
[2021-05-30] MEDS: MULTIVITAMINS /C LUTEIN (CENTRUM SILVER) TABLET *BKC 1 TAB PO (07:59)
[2021-05-30] MEDS: CHOLECALCIFEROL 1,000 UNITS TABLET 1000 UNITS PO (07:59)
[2021-05-30] MEDS: FLUTICASONE PROPIONATE 0.05% NA SPR 16 GM BTL (*BKC) 1 SPRAY NASAL (08:00)
[2021-05-30] MEDS: ARTIFICIAL TEARS OPHTH SOLN 15 ML BOTTLE 2 DROP EACH EYE (08:00)
[2021-05-30] MEDS: guaiFENesin 12 HR 600 MG TABCR PO ×2 (08:00→22:32)
[2021-05-30] MEDS: PANTOPRAZOLE 40 MG TABLET PO (08:00)
[2021-05-30] MEDS: OMEGA 3 POLYUNSAT FATTY ACIDS 1 GM CAP PO (08:00)
[2021-05-30] MEDS: predniSONE 20 MG TABLET 40 MG PO (08:00)
[2021-05-30] MEDS: DICLOFENAC SOD 75 MG TABLET.EC PO ×2 (08:00→16:08)
[2021-05-30] MEDS: IPRATROPIUM BR 0.02% INH SOLN 0.5 MG/2.5 ML VIAL INHALATION (13:06)
[2021-05-30] MEDS: ALBUTEROL SULFATE NEB 2.5 MG/0.5 ML INH INHALATION (13:07)
--- NOTE | 2021-05-30 13:14 | PM.IMPN ---
Progress Note: A&P Assessment and Plan (1) Pneumonia: Code(s): J18.9 - Pneumonia, unspecified organism Status: Acute Assessment and Plan: CTA shows bilateral pneumonia but more prominent in the left lobe. No PE identified. -continue ceftriaxone and azithromycin -COVID and influenza negative -urine antigens pending -will switch from oral prednisone to IV Solu-Medrol since the patient is more wheezy today -I have asked RN to have respiratory come do a breathing treatment -she is not requiring oxygen at this time -will try to obtain a sputum culture (2) Person under investigation for COVID-19: Code(s): Z20.822 - Contact with and (suspected) exposure to COVID-19 Status: Acute Assessment and Plan: PCR negative -she has been vaccinated x2 (3) COPD with emphysema: Code(s): J43.9 - Emphysema, unspecified Status: Acute Assessment and Plan: Continue IV Solu-Medrol (4) Chronic hyponatremia: Code(s): E87.1 - Hypo-osmolality and hyponatremia Status: Acute Assessment and Plan: She typically runs low when she is in the hospital and was pretty low on admission but today is 125 -she has been low on every lab in 2020 and 2020 and ranges from 114-127 -outpatient labs show on June 27, 2018 her sodium was normal at 134 -TSH is normal. Urine sodium is less than 5, no salt wasting noted -check cortisol -alcohol use? Seems less likely. Legionella? (5) Elevated LFTs: Code(s): R79.89 - Other specified abnormal findings of blood chemistry Status: Acute Assessment and Plan: Noted to be elevated in the past but they have normalized - Right upper quadrant ultrasound shows fatty liver -monitor Subjective Date/time seen: 05/30/21 13:14 Interval history: Pt is a 65-year-old female here for pneumonia. Patient was seen today and actually feels worse than she did yesterday. She continues to have wheezing and coughing. She has not gotten a breathing treatment since 2:00 a.m. and says that she is in need of 1. She has some chest pain when she coughs a lot that feels like a stabbing pain but no other chest pain. She is finally starting to cough up a little bit of phlegm. She denies nausea, vomiting, fevers, chills, leg swelling or abdominal pain. Exam Narrative: General: Well developed well nourished patient in NAD HEENT: normocephalic Neck: supple Neuro: Alert and oriented x4 CV:RRR. tele with NSR no alarm reviews Resp: Wheezing bilaterally, worse in the left lung. No conversational dyspnea. Abd: Soft, non distended. No pain to palpation. Positive bowel sounds Extremities: No swelling, erythema, or pain to palpation. Objective Data Vital Signs Vital Signs: Vital Signs - 24 hr 05/29/21 16:00 05/29/21 20:00 05/29/21 21:36 Temperature 96.6 F L 98 F Pulse Rate 79 77 85 Respiratory Rate 18 18 Blood Pressure 144/72 H 138/68 Pulse Oximetry 99 99 05/29/21 21:39 05/29/21 21:40 05/29/21 21:46 Temperature Pulse Rate 92 94 Respiratory Rate 18 18 Blood Pressure Pulse Oximetry 100 05/30/21 00:00 05/30/21 04:00 05/30/21 08:00 Temperature 97 F L 96.9 F L Pulse Rate 77 74 108 H Respiratory Rate 18 20 20 Blood Pressure 143/71 H 122/75 Pulse Oximetry 99 90 90 05/30/21 13:09 Temperature Pulse Rate 92 Respiratory Rate 18 Blood Pressure Pulse Oximetry 95 Intake/Output Intake/Output: Intake & Output 05/27/21 05/28/21 05/29/21 05/30/21 23:59 23:59 23:59 23:59 Intake Total 660 3080 800 Balance 660 3080 800 Meds/Results Medications: Active Medications Generic Name Dose Route Start Last Admin Trade Name Freq PRN Reason Stop Dose Admin Acetaminophen 650 mg 05/28/21 13:47 Acetaminophen 325 Mg Tablet PO Q4H PRN Mild Pain (1-3) or Fever Hydrocodone Bitart/Acetaminophen 1 tab 05/28/21 22:35 05/29/21 21:25 Hydrocodone/Acetaminophen (*Crx) 5-325 Mg
[2021-05-30] MEDS: methylPREDNISolone SOD SUCC 40 MG VIAL IV PUSH (15:35)
--- NOTE | 2021-05-30 17:25 | PC.NURSE ---
This patient, Rosemarie Chung, was received from [facility] on 05/30/21 at 1725. Patient oriented to unit policies and routines
--- NOTE | 2021-05-30 17:50 | PC.NURSE ---
175- This RN to room and patient tearful/angry that she does not have cellphone service to contact her spouse at home. This RN assisted patient to connect to [facility] for service. She verbalized anger that she should not have been transferred to an overflow room in pre-op and would like her doctor to discharge her home. 1754- Call to BARBRA Lechugasupervisor histology to notify her of patient's complaints and wanting to leave hospital and be discharged home. Per BARBRA Lechuga with patient's low sodium at 125 she does not think discharge home is in patient's best interest and she will be to bedside to talk with patient. 1814- Awaiting for laborer tan house Alexandrea to come speak with patient, this RN gave patient a portable phone to use to call loved ones while in pre-op overflow room. Patient stating she would like [facility] and wants to speak with laborer tan house. This RN apologized and voiced understanding of patient's complaints.
--- NOTE | 2021-05-30 18:35 | PC.NURSE ---
1835- dehydrogenation supervisor Alexandrea in to speak with patient. Patient voiced concerns and complaints to house wrecker. Per BARBRA Lechuga she will find patient a new room out of overflow unit.
--- NOTE | 2021-05-30 18:39 | PC.NURSE ---
1830- Patient complaining of IV in forearm being painful and would like a new IV initiated. Patient refused new IV being initiated when Divina Macias RN took in supplies to attempt new IV.
[2021-05-30] MEDS: HYDROcodone/acetaminophen (*CRX) 5-325 MG TABLET 1 TAB PO (18:44)
[2021-05-30] MEDS: LORazepam (*CRX) 0.5 MG TABLET PO (18:51)
--- NOTE | 2021-05-30 19:15 | PC.NURSE ---
1914- This patient, Rosemarie Chung, was transferred to med/surg 300 on 05/30/21 at 1915. Personal belongings sent with patient. Report given to floor RN. Appropriate documentation sent with patient.
[2021-05-31] VITALS (11 sets, daily range): BP systolic 131–164; BP diastolic 58–79; PULSE 74–103; RESP 14–23; TEMP 36.1–36.8; O2SAT 97–100
[2021-05-31] MEDS: LORazepam (*CRX) 0.5 MG TABLET PO ×2 (03:11→23:00)
[2021-05-31] MEDS: ALBUTEROL SULFATE NEB 2.5 MG/0.5 ML INH INHALATION ×3 (03:12→20:29)
[2021-05-31] MEDS: IPRATROPIUM BR 0.02% INH SOLN 0.5 MG/2.5 ML VIAL INHALATION ×3 (03:12→20:30)
[2021-05-31] MEDS: HYDROcodone/acetaminophen (*CRX) 5-325 MG TABLET 1 TAB PO ×2 (03:20→20:01)
[2021-05-31 06:29] LABS: Hematocrit 33.3 % (37.0-47.0); Hemoglobin 11.7 g/dL (12.0-15.0); Mean Corpuscular HGB Conc 35.1 g/dl (32-36); Mean Corpuscular Hemoglobin 34.4 pg (26-34); Mean Corpuscular Volume 97.9 fl (80-100); Mean Platelet Volume 9.8 fl (7.4-10.4); Platelet Count Result 308 k/mm3 (150-375); White Blood Count 18.4 K/mm3 (4.5-10.0)
[2021-05-31 06:53] LABS: Anion Gap 14 mmol/L (8-16); Blood Urea Nitrogen 10 mg/dL (7-17); CRP 5.3 mg/dL (<1.0); Calcium 9.8 mg/dL (8.4-10.2); Carbon Dioxide 22 mmol/L (22-30); Chloride 92 mmol/L (98-107); Estimated CRCL calculation 90 ml/min; Estimated Glomerular Filt Rate > 60; Glucose 144 mg/dL (65-110); Magnesium 1.3 mg/dL (1.6-2.3); Potassium 3.1 mmol/L (3.4-5.0); Sodium 128 mmol/L (137-145)
[2021-05-31] MEDS: guaiFENesin 12 HR 600 MG TABCR PO ×2 (08:04→20:00)
[2021-05-31] MEDS: PANTOPRAZOLE 40 MG TABLET PO (08:04)
[2021-05-31] MEDS: OMEGA 3 POLYUNSAT FATTY ACIDS 1 GM CAP PO (08:04)
[2021-05-31] MEDS: VITAMIN E 400 UNIT CAPSULE PO (08:04)
[2021-05-31] MEDS: MULTIVITAMINS /C LUTEIN (CENTRUM SILVER) TABLET *BKC 1 TAB PO (08:04)
[2021-05-31] MEDS: CHOLECALCIFEROL 1,000 UNITS TABLET 1000 UNITS PO (08:04)
[2021-05-31] MEDS: methylPREDNISolone SOD SUCC 40 MG VIAL IV PUSH (08:04)
[2021-05-31] MEDS: DICLOFENAC SOD 75 MG TABLET.EC PO ×2 (08:04→16:42)
[2021-05-31] MEDS: ENOXAPARIN 40 MG/0.4 ML SYRINGE SUB-Q (08:05)
[2021-05-31] MEDS: FLUTICASONE PROPIONATE 0.05% NA SPR 16 GM BTL (*BKC) 1 SPRAY NASAL (08:12)
--- NOTE | 2021-05-31 09:29 | PM.IMPN ---
Progress Note: A&P Assessment and Plan (1) Pneumonia: Code(s): J18.9 - Pneumonia, unspecified organism Status: Acute Assessment and Plan: CTA shows bilateral pneumonia but more prominent in the left lobe. No PE identified. Chest x-ray today improved. -continue ceftriaxone and azithromycin -COVID and influenza negative -urine antigens pending -is doing much better on the IV steroids today. Will continue with that. Likely causing her leukocytosis -I have asked RN to have respiratory come do a breathing treatment -she is not requiring oxygen at this time -sputum culture pending -I have encouraged deep breathing to help open up her lungs. Incentive spirometer ordered (2) Person under investigation for COVID-19: Code(s): Z20.822 - Contact with and (suspected) exposure to COVID-19 Status: Acute Assessment and Plan: PCR negative -she has been vaccinated x2 (3) COPD with emphysema: Code(s): J43.9 - Emphysema, unspecified Status: Acute Assessment and Plan: Continue IV Solu-Medrol (4) Chronic hyponatremia: Code(s): E87.1 - Hypo-osmolality and hyponatremia Status: Acute Assessment and Plan: She typically runs low when she is in the hospital and was pretty low on admission but today is 128 -she has been low on every lab in 2019 and 2020 and ranges from 114-127 -outpatient labs show on June 27, 2018 her sodium was normal at 134 -TSH is normal. Urine sodium is less than 5, no salt wasting noted -cortisol abnormally low. This could be the cause of her hyponatremia. -she does not have significant alcohol use. Legionella? (5) Elevated LFTs: Code(s): R79.89 - Other specified abnormal findings of blood chemistry Status: Acute Assessment and Plan: Noted to be elevated in the past but they have normalized - Right upper quadrant ultrasound shows fatty liver (6) Low serum cortisol level: Code(s): E27.40 - Unspecified adrenocortical insufficiency Status: Acute Assessment and Plan: Cortisol level noted to be low which can cause her hyponatremia -would recommend cortisol stimulation test patient. Unable to do so inpatient since she is acutely ill and on IV steroids -her sodium is improving with the steroids, indicating that this could be at least part of the cause of her significant hyponatremia -follow-up with primary care physician (7) Electrolyte abnormality: Code(s): E87.8 - Other disorders of electrolyte and fluid balance, not elsewhere classified Status: Acute Assessment and Plan: Potassium and magnesium are low -will supplement and assess on tomorrow's labs as well Subjective Date/time seen: 05/31/21 09:29 Interval history: Pt is a 65-year-old female here for pneumonia. Patient was seen today and is feeling better with the IV steroids. She continues to cough and is unable to take deep breaths but is overall doing better. She has not noticed any wheezing. She does feel like her chest is tight when she coughs a lot but that instantly improves when she stops coughing. She denies nausea, vomiting, fevers, chills, abdominal pain, leg swelling or loss of appetite. She was unhappy with the room situation and I did apologize for that. Exam Narrative: General: Well developed well nourished patient in NAD HEENT: normocephalic Neck: supple Neuro: Alert and oriented x4 CV:RRR Resp: Rhonchi bilaterally but very minimal wheezing today which is an improvement. No conversational dyspnea. Unable to take deep breaths without coughing Abd: Soft, non distended. No pain to palpation. Positive bowel sounds Extremities: No swelling, erythema, or pain to palpation. Objective Data Vital Signs Vital Signs: Vital Signs - 24 hr 05/30/21 12:00 05/30/21 13:09 05/30/21 13:20 Temperature Pulse Rate 86 92 90 Respiratory Rate 18 18 Blood Pressure Pulse Oxime
--- NOTE | 2021-05-31 11:28 | PCRCNOTE ---
Window of time for administration has passed. See next scheduled administration.
[2021-05-31] MEDS: POTASSIUM CHLORIDE 20 MEQ TABLET 40 MEQ PO (11:49)
[2021-05-31] MEDS: MAGNESIUM SULF 2 GM/WATER 50ML 2 GM/50 ML BAG IVPB (11:49)
[2021-05-31] MEDS: UMECLIDINIUM/VILANTEROL 62.5-25 MCG ELLIPTA 1 PUFF INHALATION (16:03)
[2021-05-31 18:11] LABS: Pneumococcal Antigen Urine Detected (Not Detected)
[2021-06-01] VITALS (12 sets, daily range): BP systolic 121–149; BP diastolic 48–72; PULSE 82–106; RESP 17–20; TEMP 36.2–37; O2SAT 95–98
[2021-06-01] MEDS: ALBUTEROL SULFATE NEB 2.5 MG/0.5 ML INH INHALATION ×4 (01:10→20:10)
[2021-06-01] MEDS: IPRATROPIUM BR 0.02% INH SOLN 0.5 MG/2.5 ML VIAL INHALATION ×4 (01:11→20:10)
[2021-06-01 07:57] LABS: Basophils Percent Auto 0.1 % (0.2-1.2); Eosinophils Absolute Auto 0.1 K/mm3 (0-0.3); Eosinophils Percent Auto 0.4 % (0-4.4); Hematocrit 32.7 % (37.0-47.0); Hemoglobin 11.2 g/dL (12.0-15.0); Immature Granulocyte Absolute 1.54 K/mm3 (0.00-0.031); Immature Granulocyte Percent A 12.8 % (0-0.5); Lymphocytes Absolute Auto 2.57 K/mm3 (0.9-3.2); Lymphocytes Percent Auto 21.4 % (18.3-44.2); Mean Corpuscular HGB Conc 34.3 g/dl (32-36); Mean Corpuscular Hemoglobin 33.4 pg (26-34); Mean Corpuscular Volume 97.6 fl (80-100); Monocytes Absolute Auto 1.5 K/mm3 (0.1-0.6); Monocytes Percent Auto 12.7 % (2.6-8.5); Neutrophils Absolute Auto 6.3 K/mm3 (1.3-6.7); Neutrophils Percent Auto 52.6 % (45.5-73.1); Platelet Count Result 331 k/mm3 (150-375); Red Blood Count 3.35 M/mm3 (4.2-5.4); Red Cell Distribution Width 12.2 % (11.5-14.5)
[2021-06-01 08:04] LABS: Anion Gap 10 mmol/L (8-16); Blood Urea Nitrogen 8 mg/dL (7-17); Calcium 9.1 mg/dL (8.4-10.2); Carbon Dioxide 27 mmol/L (22-30); Chloride 97 mmol/L (98-107); Estimated CRCL calculation 109 ml/min; Estimated Glomerular Filt Rate > 60; Glucose 95 mg/dL (65-110); Magnesium 1.5 mg/dL (1.6-2.3); Potassium 3.6 mmol/L (3.4-5.0); Sodium 134 mmol/L (137-145)
[2021-06-01] MEDS: VITAMIN E 400 UNIT CAPSULE PO (08:27)
[2021-06-01] MEDS: ENOXAPARIN 40 MG/0.4 ML SYRINGE SUB-Q (08:27)
[2021-06-01] MEDS: DICLOFENAC SOD 75 MG TABLET.EC PO ×2 (08:27→17:32)
[2021-06-01] MEDS: BENZONATATE 100 MG CAPSULE PO ×3 (08:27→17:31)
[2021-06-01] MEDS: CHOLECALCIFEROL 1,000 UNITS TABLET 1000 UNITS PO (08:27)
[2021-06-01] MEDS: methylPREDNISolone SOD SUCC 40 MG VIAL IV PUSH (08:27)
[2021-06-01] MEDS: guaiFENesin 12 HR 600 MG TABCR PO ×2 (08:28→20:50)
[2021-06-01] MEDS: PANTOPRAZOLE 40 MG TABLET PO (08:28)
[2021-06-01] MEDS: OMEGA 3 POLYUNSAT FATTY ACIDS 1 GM CAP PO (08:28)
[2021-06-01] MEDS: MULTIVITAMINS /C LUTEIN (CENTRUM SILVER) TABLET *BKC 1 TAB PO (08:28)
[2021-06-01] MEDS: UMECLIDINIUM/VILANTEROL 62.5-25 MCG ELLIPTA 1 PUFF INHALATION (08:38)
[2021-06-01] MEDS: FLUTICASONE PROPIONATE 0.05% NA SPR 16 GM BTL (*BKC) 1 SPRAY NASAL (08:40)
[2021-06-01] MEDS: HYDROcodone/acetaminophen (*CRX) 5-325 MG TABLET 1 TAB PO ×2 (08:44→20:50)
[2021-06-01] MEDS: LORazepam (*CRX) 0.5 MG TABLET PO ×2 (08:44→20:50)
--- NOTE | 2021-06-01 15:00 | PM.IMPN ---
Progress Note: A&P Assessment and Plan (1) COPD with emphysema: Code(s): J43.9 - Emphysema, unspecified Status: Acute Assessment and Plan: -will wean Solu-Medrol to prednisone -continue supportive care with Tessalradha Perles, guaifenesin, DuoNebs -COPD without hypoxemia -on umeclidinium (2) Pneumonia: Code(s): J18.9 - Pneumonia, unspecified organism Status: Acute Assessment and Plan: Azithromycin, Rocephin (3) Electrolyte abnormality: Code(s): E87.8 - Other disorders of electrolyte and fluid balance, not elsewhere classified Status: Acute Assessment and Plan: Hypomagnesia. 4 g Mag sulfate for magnesium 1.5. potassium 3.6 will give 20 mEq (4) Low serum cortisol level: Code(s): E27.40 - Unspecified adrenocortical insufficiency Status: Acute (5) Elevated LFTs: Code(s): R79.89 - Other specified abnormal findings of blood chemistry Status: Acute Assessment and Plan: -hepatitis panel negative -LFTs resolved Additional Plan Diet: Regular DVT prophylaxis: Lovenox GI prophylaxis: Protonix Code status: Full code Disposition: Home in 1-2 days Time Spent With Patient Time with patient: 25 - 35 minutes Subjective Date/time seen: 06/01/21 15:01 Patient seen and examined. She is doing well breathing comfortably on room air. Improving with IV steroids, will continue weaning steroids. Replete magnesium and potassium today. She may need cortisol stim test outpatient cortisol stim test. Patient denies fever, chills, nausea, vomiting, diarrhea, chest pain, shortness of breath. She feels better today than yesterday. Still feels very weak. Review of Systems Review of Systems: All systems reviewed & are unremarkable except as noted in HPI and below Exam Narrative: - GENERAL: Pleasant woman in no acute distress. - EYES: EOMI. Anicteric. - HENT: Moist mucous membranes. - LUNGS: Diminished lung sounds bilaterally no wheezing. Rhonchi present. - CARDIOVASCULAR: Regular rate and rhythm. No murmur. No JVD. - ABDOMEN: Soft, non-tender and non-distended. No palpable masses. - EXTREMITIES: No edema. Peripheral pulses 2+. Non-tender. - NEUROLOGIC: No focal neurological deficits. CN II-XII grossly intact. - PSYCHIATRIC: Awake, Alert and oriented x 3. Appropriate mood and affect. - SKIN: No rashes or lesions. Warm. - LYMPH: No cervical lymphadenopathy. Objective Data Vital Signs Vital Signs: Vital Signs - 24 hr 05/31/21 16:00 05/31/21 20:00 05/31/21 20:30 Temperature 36.7 C 36.7 C Pulse Rate 88 76 84 Respiratory Rate 16 18 15 Blood Pressure 142/62 H 160/73 H Pulse Oximetry 99 100 05/31/21 20:42 05/31/21 23:39 06/01/21 01:12 Temperature 36.5 C Pulse Rate 78 74 82 Respiratory Rate 14 18 17 Blood Pressure 137/59 L Pulse Oximetry 99 06/01/21 01:19 06/01/21 03:59 06/01/21 08:00 Temperature 36.5 C Pulse Rate 85 98 Respiratory Rate 19 20 Blood Pressure 149/72 H Pulse Oximetry 95 95 06/01/21 08:15 06/01/21 08:23 06/01/21 14:00 Temperature 36.2 C L Pulse Rate 85 87 90 Respiratory Rate 18 18 20 Blood Pressure 139/59 L Pulse Oximetry 95 95 98 06/01/21 14:05 06/01/21 14:20 Temperature Pulse Rate 91 106 H Respiratory Rate 18 18 Blood Pressure Pulse Oximetry Intake/Output Intake/Output: Intake & Output 05/29/21 05/30/21 05/31/21 06/01/21 23:59 23:59 23:59 23:59 Intake Total 3080 1780 2030 1060 Balance 3080 1780 2030 1060 Meds/Results Medications: Active Medications Generic Name Dose Route Start Last Admin Trade Name Freq PRN Reason Stop Dose Admin Acetaminophen 650 mg 05/28/21 13:47 Acetaminophen 325 Mg Tablet PO Q4H PRN Mild Pain (1-3) or Fever Hydrocodone Bitart/Acetaminophen 1 tab 05/28/21 22:35 06/01/21 08:44 Hydrocodone/Acetaminophen (*Crx) 5-325 Mg Tablet PO 1 tab TID PRN Administration Pain Rated 4-6 Albuterol 2.5 mg 05/29/21 02:0
[2021-06-01] MEDS: MAGNESIUM SULF 4 GM/WATER100ML 4 GM/100 ML BAG IVPB (16:44)
[2021-06-01] MEDS: POTASSIUM CHLORIDE 20 MEQ TABLET PO (17:31)
[2021-06-02] MEDS: IPRATROPIUM BR 0.02% INH SOLN 0.5 MG/2.5 ML VIAL INHALATION ×2 (02:25→07:58)
[2021-06-02 02:26] VITALS: PULSE 87; RESP 16
[2021-06-02] MEDS: ALBUTEROL SULFATE NEB 2.5 MG/0.5 ML INH INHALATION ×2 (02:26→07:58)
[2021-06-02 02:34] VITALS: PULSE 89; RESP 18
[2021-06-02 04:20] LABS: Osmolality, Urine 304 mOsm/kg (50-1200)
[2021-06-02 05:32] VITALS: BP 150/69; PULSE 85; RESP 18; TEMP 36.8; O2SAT 100
[2021-06-02 06:52] LABS: Hematocrit 31.9 % (37.0-47.0); Hemoglobin 11.1 g/dL (12.0-15.0); Mean Corpuscular HGB Conc 34.8 g/dl (32-36); Mean Corpuscular Hemoglobin 33.8 pg (26-34); Mean Corpuscular Volume 97.3 fl (80-100); Mean Platelet Volume 9.9 fl (7.4-10.4); Platelet Count Result 402 k/mm3 (150-375); Red Blood Count 3.28 M/mm3 (4.2-5.4); Red Cell Distribution Width 12.2 % (11.5-14.5); White Blood Count 16.5 K/mm3 (4.5-10.0)
[2021-06-02 07:13] LABS: Anion Gap 6 mmol/L (8-16); Blood Urea Nitrogen 10 mg/dL (7-17); Calcium 9.1 mg/dL (8.4-10.2); Carbon Dioxide 29 mmol/L (22-30); Chloride 95 mmol/L (98-107); Estimated CRCL calculation 90 ml/min; Estimated Glomerular Filt Rate > 60; Glucose 98 mg/dL (65-110); Potassium 4.4 mmol/L (3.4-5.0); Sodium 130 mmol/L (137-145)
[2021-06-02] MEDS: UMECLIDINIUM/VILANTEROL 62.5-25 MCG ELLIPTA 1 PUFF INHALATION (07:58)
[2021-06-02 08:00] VITALS: BP 146/64; PULSE 77; PULSE 80; PULSE 84; RESP 16; RESP 18; TEMP 36.6; O2SAT 94
[2021-06-02 08:11] VITALS: PULSE 84; RESP 18
[2021-06-02] MEDS: LORazepam (*CRX) 0.5 MG TABLET PO (09:07)
[2021-06-02] MEDS: HYDROcodone/acetaminophen (*CRX) 5-325 MG TABLET 1 TAB PO (09:07)
[2021-06-02] MEDS: VITAMIN E 400 UNIT CAPSULE PO (09:08)
[2021-06-02] MEDS: predniSONE 20 MG TABLET 40 MG PO (09:08)
[2021-06-02] MEDS: OMEGA 3 POLYUNSAT FATTY ACIDS 1 GM CAP PO (09:08)
[2021-06-02] MEDS: BENZONATATE 100 MG CAPSULE PO (09:08)
[2021-06-02] MEDS: DICLOFENAC SOD 75 MG TABLET.EC PO (09:08)
[2021-06-02] MEDS: FLUTICASONE PROPIONATE 0.05% NA SPR 16 GM BTL (*BKC) 1 SPRAY NASAL (09:09)
[2021-06-02] MEDS: CHOLECALCIFEROL 1,000 UNITS TABLET 1000 UNITS PO (09:09)
[2021-06-02] MEDS: ENOXAPARIN 40 MG/0.4 ML SYRINGE SUB-Q (09:09)
[2021-06-02] MEDS: MULTIVITAMINS /C LUTEIN (CENTRUM SILVER) TABLET *BKC 1 TAB PO (09:10)
[2021-06-02] MEDS: guaiFENesin 12 HR 600 MG TABCR PO (09:10)
[2021-06-02] MEDS: PANTOPRAZOLE 40 MG TABLET PO (09:10)
--- NOTE | 2021-06-02 12:41 | PM.DS ---
DS: Admitting Diagnosis Discharge Date 06/02/21 Admitting Diagnosis Pneumonia, COPD DS: Discharge Diagnosis Discharge Diagnosis (1) COPD with emphysema: Code(s): J43.9 - Emphysema, unspecified Status: Acute Assessment and Plan: Patient has underlying COPD, discharging with p.rNeeman. DuoNebs, nebulizer machine. Steroid taper. She has never required oxygen since admission, with steroids air movement improved (2) Hypomagnesemia: Code(s): E83.42 - Hypomagnesemia Status: Acute Assessment and Plan: Repleted, likely secondary to nutrition. Patient already on home supplement. Plan check next SaturdayJune 07 (3) Hypokalemia: Code(s): E87.6 - Hypokalemia Status: Acute Assessment and Plan: Repleted, likely secondary to nutrition. Patient already on home supplement. Plan check next SaturdayJune 07 (4) Low serum cortisol level: Code(s): E27.40 - Unspecified adrenocortical insufficiency Status: Acute Assessment and Plan: May benefit from outpatient cortisol stim test (5) Pneumonia: Code(s): J18.9 - Pneumonia, unspecified organism Status: Acute Assessment and Plan: Community-acquired pneumonia, on Rocephin Zithromax, will discharge on Zithromax to complete 5 day course DS: Summary Hospital Course Reason for hospitalization: Pneumonia, COPD exacerbation Hospital Course: Patient is 65-year-old female past medical history of COPD with emphysema and chronic hypokalemia hypomagnesia presents to the ED with complaints of dyspnea. Her symptom onset was 1 day prior to admission with green phlegm. She is diagnosed with community-acquired pneumonia treated with Rocephin azithromycin. Patient will be discharged home completing her Zithromax and 5 day course. For COPD exacerbation she had been on DuoNebs and prednisone faring very well. She is not requiring any oxygen. Patient to be discharged home with nebulizer machine, DuoNeb prescription, Mucinex, Tessalon Perles, steroid taper prednisone, and azithromycin. Patient like to follow-up with negative cutter, given referral to Dr. Peters. Of note patient had negative COVID-19 test 05/26/2021. She is vaccinated for COVID 19 x 2 doses. Her magnesium and potassium were repleted, and she is on home supplement, will recheck next SaturdayJune 07. At time of discharge patient's vitals stable, labs stable, patient is for discharge home. She will follow-up with PCP in 1-2 weeks. Patient understands and agrees with plan. Status at Discharge Cognitive/behavioral status at discharge: Baseline Functional status at discharge: independent ambulation Overall status at discharge: patient is back to baseline Time Spent with Patient Time attestation: Total time spent providing and/or coordinating discharge services:35 Time spent: Greater than 30 minutes Exam Narrative: - GENERAL: Pleasant woman in no acute distress. Well-nourished. - EYES: EOMI. Anicteric. - HENT: Moist mucous membranes. - LUNGS: Wheezing throughout and left lower lobe coarse lung sounds. Breathing comfortably on room air - CARDIOVASCULAR: Regular rate and rhythm. No murmur. No JVD. - ABDOMEN: Soft, non-tender and non-distended. No palpable masses. - EXTREMITIES: No edema. Peripheral pulses 2+. Non-tender. - NEUROLOGIC: No focal neurological deficits. CN II-XII grossly intact. - PSYCHIATRIC: Awake, Alert and oriented x 3. Appropriate mood and affect. - SKIN: No rashes or lesions. Warm. - LYMPH: No cervical lymphadenopathy. DS: Data Data Completed and Pending Labs on day of discharge: Labs from last 24 hours 06/02/21 06/02/21 05/28/21 05:20 05:20 16:34 WBC 16.5 H RBC 3.28 L Hgb 11.1 L Hct 31.9 L MCV 97.3 MCH 33.8 MCHC 34.8 RDW 12.2 Plt Count 402 H MPV 9.9 Sodium 130 L Potassium 4.4 Chloride 95 L Carbon Dioxide 29 Anion Gap 6 L BUN 10 Creatinine 0.50 L Estim Creat
[2021-06-05 21:00] LABS: Legionella pneumophila Ag Ur Not Detected (Not Detected)
[2021-06-10 10:54] LABS: Procalcitonin 4.1 ng/mL
== END 2021-06-02 11:42 | disposition home or self-care (01) | DRG 194 ==
LOC: ANHED 13:56 → ANH3MEDSUR 16:12 → ANHSUROVER 05-30 17:28 → ANH3MEDSUR 05-30 19:44
PROVIDERS: Emergency Medicine; Physician Assistant; Admitting Provider Internal Medicine; Emergency Provider Nurse Practitioner; PCP Internal Medicine; Visit Provider Student in an Organized Health Care Education/Training Program
DX: J18.9 Pneumonia, unspecified organism (principal); E87.1 Hypo-osmolality and hyponatremia; E27.40 Unspecified adrenocortical insufficiency; Z20.822 Contact with and (suspected) exposure to COVID-19; J43.9 Emphysema, unspecified; E83.42 Hypomagnesemia; R79.89 Other specified abnormal findings of blood chemistry; E78.5 Hyperlipidemia, unspecified; M79.7 Fibromyalgia; M54.50 Low back pain, unspecified; E55.9 Vitamin D deficiency, unspecified; Z87.891 Personal history of nicotine dependence
CPT/HCPCS: 36415; 71046; 71275; 76705; 80048; 80053; 80074; 80076; 82533; 82550; 82570; 82728; 83605; 83615; 83690; 83735; 83930; 83935; 84145; 84295; 84300; 84443; 84484; 85025; 85027; 85610; 85730; 86140; 87070; 87205; 87449; 87804; 87899; 93005; 94640; 94667; 94668; 96361; 96365; 96366; 96367; 96372; 96375; 96376; 99285; A9270; C9803; G0378; J0456; J0696; J1100; J1650; J2920; J3475; J7030; J7512; Q9967; U0003; U0005

== ENCOUNTER → 2021-08-09 10:48 | Outpatient (CLI) | payer BC, SELFPAY ==
--- NOTE | ~2021-08-09 | XR_ITS ---
EXAMINATION: XR chest 2V DATE: 08/09/2021 11:04 INDICATION: Personal history of recurrent pneumonia. TECHNIQUE: Frontal and lateral views of the chest were obtained. COMPARISON: Chest 2 views 05/31/2021, chest CT 05/28/2021 FINDINGS: The chest demonstrates clear lungs without pneumonia, pleural effusion, or pneumothorax. Th e heart size is normal. IMPRESSION: 1. No acute cardiopulmonary disease. Reviewed, dictated and finalized at location A. T MARKER
== END ==
PROVIDERS: PCP Internal Medicine; Visit Provider Internal Medicine Pulmonary Disease
DX: J44.9 Chronic obstructive pulmonary disease, unspecified (principal); Z87.01 Personal history of pneumonia (recurrent)
CPT/HCPCS: 71046

== ENCOUNTER → 2021-09-22 10:36 | Outpatient (CLI) | payer BC, SELFPAY ==
--- NOTE | ~2021-09-22 | XR_ITS ---
EXAMINATION: XR hip BI wo pelvis DATE: 09/22/2021 11:20 INDICATION: Hip pain. TECHNIQUE: 2 views of right hip and 2 views of left hip were obtained. COMPARISON: Hip radiographs 10/17/2020 FINDINGS: There is lumbar levoscoliosis and severe spondylosis. No fracture. There is mild osteoarthr osis of the hips characterized by tiny osteophytes. No hip joint space narrowing. IMPRESSION: 1. Mild osteoarthritis of the hips. Reviewed, dictated and finalized at location B.
== END ==
PROVIDERS: PCP Internal Medicine; Visit Provider Pain Medicine Interventional Pain Medicine
DX: M16.0 Bilateral primary osteoarthritis of hip (principal); M25.559 Pain in unspecified hip
CPT/HCPCS: 73521

== ENCOUNTER 2021-11-20 12:48 | Emergency (ER) | payer BC, SELFPAY ==
[2021-11-20 13:03] VITALS: BP 147/61; PULSE 84; RESP 20; TEMP 36.8; O2SAT 100
--- NOTE | 2021-11-20 13:09 | ED.SKABFB ---
HPI - Skin/Abscess/Foreign Bdy General Chief complaint: Skin/Abscess/Foreign Body Stated complaint: rash Time Seen by Provider: 11/20/21 13:02 Source: patient and RN notes reviewed Mode of arrival: ambulatory Limitations: no limitations History of Present Illness HPI narrative: 66-year-old female presents to the [facility] with complaints of hives all body tested yesterday. Has Benadryl with minimal relief. Denies any new creams, ointments, lotions or detergents. Patient states itch started shortly after eating meatloaf at her daughter's house. Denies any chest pain or abdominal pain. No shortness of breath. No lip or tongue swelling MD complaint: rash Related Data Home Medications Medication Instructions Recorded Confirmed estradiol 1 mg tablet 1 mg PO DAILY 11/25/19 11/20/21 cholecalciferol (vitamin D3) 25 25 mcg PO DAILY 02/04/20 11/20/21 mcg (1,000 unit) tablet hydrocodone 5 mg-acetaminophen 325 1 tablet PO TID PRN pain 02/18/21 11/20/21 mg tablet albuterol sulfate 90 mcg/actuation 2 puff inhalation Q4H PRN 05/28/21 11/20/21 aerosol inhaler shortness of breath or wheezing loratadine 10 mg tablet (Claritin) 10 mg PO DAILY PRN Allergy Symptoms 05/28/21 09/04/21 multivitamin-ferrous 1 tablet PO DAILY 05/28/21 11/20/21 fumarate-folic acid 18 mg-400 mcg tablet (Centrum Complete) omega-3 fatty acids-vitamin E 1 cap PO DAILY 05/28/21 11/20/21 1,000 mg capsule vitamin E 400 unit capsule 400 unit PO DAILY 05/28/21 11/20/21 Allergies Allergy/AdvReac Type Severity Reaction Status Date / Time No Known Allergies Allergy Verified 11/20/21 13:08 Review of Systems Review of Systems: All systems reviewed & are unremarkable except as noted in HPI and below Constitutional: Constitutional: Reports no additional constitutional complaints, Denies chills and Denies fever(s) Eyes: Eyes: Reports no additional eye complaints ENT: Reports system reviewed and no additional complaints, except as documented Cardiovascular: Cardiovascular: Reports no additional cardiovascular complaints Respiratory: Respiratory: Reports no additional respiratory complaints Gastrointestinal: Gastrointestinal: Reports no additional gastrointestinal complaints Musculoskeletal: Musculoskeletal: Reports no additional musculoskeletal complaints Integumentary/Breasts: Skin/Breast: Reports as per HPI, Reports pruritus and Reports rash Neurologic: Reports system reviewed and no additional complaints, except as documented Psychiatric: Psychiatric: Reports no additional psychiatric complaints Allergic/Immunologic: Allergic/Immunologic: Reports no additional allergic/immunologic complaints COUNT INCLUDES THE [facility] Past Medical History Medical History Anxiety COPD with emphysema Degenerative disc disease Gastroesophageal reflux disease Vitamin D deficiency, unspecified Surgical History Surgical History History of cardiac catheterization (02/2021) Right coronary dominant circulation with no evidence of coronary disease. History of section History of colonoscopy with polypectomy History of hysterectomy History of kyphoplasty History of repair of right rotator cuff History of tubal ligation Status post excision of Hernández's neuroma Family History Family History Father Family history of suicide Family history of rheumatoid arthritis Sibling Family history of osteoarthritis Mother Family history of chronic obstructive pulmonary disease Family history of malignant neoplasm Daughter Asthma Social History Social History Social History: Surrogate decision maker: Israel Chung, spouse. Code status: Full code. Smoking packs per day: 2 Smoking cigarettes per day: 40.0 Years smoked: 25 Smoking pack-years: 50.00
[2021-11-20] MEDS: methylPREDNISolone SOD SUCC 125 MG VIAL IM (13:16)
== END 2021-11-20 13:39 | disposition home or self-care (01) ==
PROVIDERS: Emergency Provider Nurse Practitioner; PCP Internal Medicine
DX: L50.9 Urticaria, unspecified (principal); Z87.891 Personal history of nicotine dependence; J44.9 Chronic obstructive pulmonary disease, unspecified; K21.9 Gastro-esophageal reflux disease without esophagitis; E55.9 Vitamin D deficiency, unspecified; F41.9 Anxiety disorder, unspecified
CPT/HCPCS: 96372; 99213; G0463; J2930

== ENCOUNTER 2021-11-20 17:22 | Emergency (ER) | payer BC, SELFPAY ==
[2021-11-20] VITALS (11 sets, daily range): BP systolic 150–184; BP diastolic 70–99; PULSE 85–93; RESP 16–18; TEMP 36.6; O2SAT 98–100
[2021-11-20] MEDS: diphenhydrAMINE HCl CAP 25 MG CAPSULE 50 MG PO (18:18)
[2021-11-20] MEDS: EPINEPHrine HCL INJ 1 MG/ML AMPUL 0.3 MG IM (18:18)
[2021-11-20] MEDS: FAMOTIDINE 20 MG TABLET PO (18:18)
[2021-11-20] MEDS: predniSONE 20 MG TABLET 40 MG PO (18:19)
--- NOTE | 2021-11-20 20:13 | ED.ALLEREA ---
HPI - Allergic Reaction General Chief complaint: Allergic Reaction Stated complaint: allergic reaction Time Seen by Provider: 11/20/21 17:44 History of Present Illness HPI narrative: 66-year-old female presents with swelling of her lips, face, eyes, and rash over her whole body, she states this had happened yesterday, she had gone to the urgent care where she had been given a steroid shot and prescription for more medications, she had not had a chance to take them yet but about an hour prior to presentation here had once again had swelling in her lips and face, was concerned and came in. Endorsing some mild scratchy, no nausea or vomiting, and itching to her whole chest. She is unsure of any triggers, does not know what started her symptoms yesterday. No new medications or detergents or contact with anything. Related Data Home Medications Medication Instructions Recorded Confirmed estradiol 1 mg tablet 1 mg PO DAILY 11/25/19 11/20/21 cholecalciferol (vitamin D3) 25 25 mcg PO DAILY 02/04/20 11/20/21 mcg (1,000 unit) tablet hydrocodone 5 mg-acetaminophen 325 1 tablet PO TID PRN pain 02/18/21 11/20/21 mg tablet albuterol sulfate 90 mcg/actuation 2 puff inhalation Q4H PRN 05/28/21 11/20/21 aerosol inhaler shortness of breath or wheezing loratadine 10 mg tablet (Claritin) 10 mg PO DAILY PRN Allergy Symptoms 05/28/21 09/04/21 multivitamin-ferrous 1 tablet PO DAILY 05/28/21 11/20/21 fumarate-folic acid 18 mg-400 mcg tablet (Centrum Complete) omega-3 fatty acids-vitamin E 1 cap PO DAILY 05/28/21 11/20/21 1,000 mg capsule vitamin E 400 unit capsule 400 unit PO DAILY 05/28/21 11/20/21 Allergies Allergy/AdvReac Type Severity Reaction Status Date / Time No Known Allergies Allergy Verified 11/20/21 13:08 Review of Systems Review of Systems: CONST: No fever. HEAD: Swelling of face EYES: Swelling of eyelids ENT: Lip/tongue swelling C/V: No chest pain RESP: No cough GI: No nausea M/S: Itchy rash to limbs SKIN: Hives NEURO: [No focal numbness or weakness] PSYCH: [No depression] PMFSH Past Medical History Medical History Anxiety COPD with emphysema Degenerative disc disease Gastroesophageal reflux disease Vitamin D deficiency, unspecified Surgical History Surgical History History of cardiac catheterization (02/2021) Right coronary dominant circulation with no evidence of coronary disease. History of section History of colonoscopy with polypectomy History of hysterectomy History of kyphoplasty History of repair of right rotator cuff History of tubal ligation Status post excision of Hernández's neuroma Family History Family History Father Family history of suicide Family history of rheumatoid arthritis Sibling Family history of osteoarthritis Mother Family history of chronic obstructive pulmonary disease Family history of malignant neoplasm Daughter Asthma Social History Social History Social History: Surrogate decision maker: Israel Chung, spouse. Code status: Full code. Smoking packs per day: 2 Smoking cigarettes per day: 40.0 Years smoked: 25 Smoking pack-years: 50.00 Smoking status: Former smoker Tobacco type: cigarettes Smoking end date: 06/03/00 Alcohol intake: current Drinks per week: 5 Substance use: never Substance use type: does not use Additional living arrangements comments: The patient lives in [place] with her . 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 Exam Narrative: EXAMINATION OF ORGAN SYSTEMS/BODY AREAS: Constitutional: Vital signs per nursing GENERAL:[No acute distress, non-toxic appearing.] HEAD: Swelling left face EYES: EOMI, swelling bilateral eyelids ENT: No stridor, slightly hoar
== END 2021-11-20 20:36 | disposition home or self-care (01) ==
PROVIDERS: Emergency Provider Emergency Medicine; PCP Internal Medicine
DX: T78.3XXA Angioneurotic edema, initial encounter (principal); J43.9 Emphysema, unspecified; K21.9 Gastro-esophageal reflux disease without esophagitis; E55.9 Vitamin D deficiency, unspecified; Z87.891 Personal history of nicotine dependence
CPT/HCPCS: 96372; 99283; A9270; J0171; J2930; J7512

== ENCOUNTER → 2021-11-30 14:53 | Outpatient (CLI) | payer BC, SELFPAY ==
--- NOTE | ~2021-11-30 | XR_ITS ---
XR lumbar spine 2-3V DATE: 11/30/2021 15:17 INDICATION: Lumbosacral radiculopathy TECHNIQUE: AP, lateral and coned lateral lumbosacral views COMPARISON: 10/17/2020 lumbar spine FINDINGS: Again noted is vertebroplasty at L3. There is prominent rotatory levoscoliosis of the lower thoracic and lumbar spine. There is severe degenerative disc disease throughout the lumbar and lumbosacral spine. There is an ap proximately 10-12 mm left lateral translation at L3-4. The sacroiliac joints are intact. Osteopenia. IMPRESSION: Prominent rotatory levoscoliosis and severe degenerative disc disease of the lumbar spine ; increased severity of degenerative disc disease is noted in particular at L3-4 since 10/17/2020 10 to 12 mm left lateral translation at L3-4 Status post vertebroplasty at L3 Osteopenia. Reviewed, dictated and finalized at location B. IMPRESSION: Prominent rotatory levoscoliosis and severe degenerative disc disea se of the lumbar spine; increased severity of degenerative disc disease is note d in particular at L3-4 since 10/17/2020 10 to 12 mm left lateral translation at L3-4 Status post vertebroplasty at L3 Osteopenia.
== END ==
PROVIDERS: PCP Internal Medicine; Visit Provider Pain Medicine Interventional Pain Medicine
DX: M47.26 Other spondylosis with radiculopathy, lumbar region (principal); M41.9 Scoliosis, unspecified
CPT/HCPCS: 72100

== ENCOUNTER 2021-12-26 14:57 | Emergency (ER) | payer BC, SELFPAY ==
[2021-12-26 15:10] VITALS: BP 115/55; PULSE 108; RESP 24; TEMP 36.4; O2SAT 97
--- NOTE | 2021-12-26 15:16 | ED.NAVMDI ---
HPI - Nausea/Vomiting/Diarrhea General Chief complaint: Nausea/Vomiting/Diarrhea Stated complaint: Nausea,Fatigue Time Seen by Provider: 12/26/21 15:19 Source: patient, family, RN notes reviewed and old records reviewed Mode of arrival: ambulatory (uses walker) Limitations: no limitations History of Present Illness HPI Narrative: 66 year old female accompanied by spouse presents to express care with complaints of nausea with no vomiting or diarrhea or abdominal pain since Saturday. Patient reports that she has not eaten since Saturday is weak with no energy. Patient reports that she has been drinking water and Gatorade and has been laying around since she is so weak. Patient denies any changes in her breathing or increase cough or mucous production, denies any fevers,chills, or sweats. MD elicited complaint: nausea and other (weakness and no energy) Pertinent past history: other (gerd, hiatal hernia, IBS, COPD, Chronic back pain) Onset (ago): day(s) (3) Associated nausea: Yes Related Data Home Medications Medication Instructions Recorded Confirmed estradiol 1 mg tablet 1 mg PO DAILY 11/25/19 11/20/21 cholecalciferol (vitamin D3) 25 25 mcg PO DAILY 02/04/20 11/20/21 mcg (1,000 unit) tablet hydrocodone 5 mg-acetaminophen 325 1 tablet PO TID PRN pain 02/18/21 11/20/21 mg tablet albuterol sulfate 90 mcg/actuation 2 puff inhalation Q4H PRN 05/28/21 11/20/21 aerosol inhaler shortness of breath or wheezing loratadine 10 mg tablet (Claritin) 10 mg PO DAILY PRN Allergy Symptoms 05/28/21 09/04/21 multivitamin-ferrous 1 tablet PO DAILY 05/28/21 11/20/21 fumarate-folic acid 18 mg-400 mcg tablet (Centrum Complete) omega-3 fatty acids-vitamin E 1 cap PO DAILY 05/28/21 11/20/21 1,000 mg capsule vitamin E 268 mg (400 unit) capsule 400 unit PO DAILY 05/28/21 11/20/21 ascorbic acid (vitamin C) 500 mg 500 mg PO BID 12/26/21 12/26/21 tablet benzonatate 200 mg capsule 200 mg PO TID PRN Cough 12/26/21 12/26/21 umeclidinium 62.5 mcg-vilanterol 1 inh inhalation DAILY 12/26/21 12/26/21 25 mcg/actuation powdr for inhalation (Anoro Ellipta) Allergies Allergy/AdvReac Type Severity Reaction Status Date / Time No Known Allergies Allergy Verified 12/26/21 15:23 Review of Systems Review of Systems: CONSTITUTIONAL: Denies fever, chills, or sweats. EYES: Denies visual changes, redness, or discharge. ENT: Denies rhinorrhea, congestion, sore throat, or otalgia. CARDIOVASCULAR: Denies chest pain, palpitations, or edema. RESPIRATORY: Denies acute cough positive for dyspnea with any exertion, mild tachypnea GASTROINTESTINAL: Denies abdominal pain, positive for nausea,no vomiting, or diarrhea. GENITOURINARY: Denies dysuria or hematuria. SKIN: Denies rash or itching. MUSCULOSKELETAL: Chronic back pain, joint pain, or myalgia. NEUROLOGIC: Denies headache, numbness, or weakness. PSYCHIATRIC: Positive for history of anxiety or depression. All systems reviewed & are unremarkable except as noted in HPI and below PMFSH Past Medical History Medical History Anxiety COPD with emphysema Degenerative disc disease Gastroesophageal reflux disease Vitamin D deficiency, unspecified Surgical History Surgical History History of cardiac catheterization (02/2021) Right coronary dominant circulation with no evidence of coronary disease. History of section History of colonoscopy with polypectomy History of hysterectomy History of kyphoplasty History of repair of right rotator cuff History of tubal ligation Status post excision of Hernández's neuroma Family History Family History Father Family history of suicide Family history of rheumatoid arthritis Sibling Family history of osteoarthritis Mother Family history of chronic obstructive pulmonary disease Family history of mal
== END 2021-12-26 16:02 | disposition short-term general hospital (02) ==
PROVIDERS: Emergency Provider Registered Nurse; PCP Internal Medicine
DX: R11.0 Nausea (principal); R63.0 Anorexia; N39.0 Urinary tract infection, site not specified; Z20.822 Contact with and (suspected) exposure to COVID-19; Z87.891 Personal history of nicotine dependence; J44.9 Chronic obstructive pulmonary disease, unspecified; K21.9 Gastro-esophageal reflux disease without esophagitis; F41.9 Anxiety disorder, unspecified; E55.9 Vitamin D deficiency, unspecified
CPT/HCPCS: 81003; 87077; 87086; 87186; 87426; 87804; 99213; C9803; G0463

== ENCOUNTER 2021-12-26 16:24 | Inpatient (IN) | payer BC, SELFPAY ==
[2021-12-26] VITALS (8 sets, daily range): BP systolic 97–151; BP diastolic 51–111; PULSE 96–155; RESP 18–22; TEMP 36.9; O2SAT 92–100; BMI 21.7; BMI 21.9
--- NOTE | ~2021-12-26 | CT_ITS ---
EXAMINATION: CT abdomen pelvis wo con DATE: 12/26/2021 18:48 INDICATION: epigastric pain, vomiting TECHNIQUE: Computed tomography (CT) of the abdomen and pelvis was performed without intravenous contr ast. Automated exposure control and iterative reconstruction technique were employed. The dose-length product was 430.37 mGy-cm. COMPARISON: 06/22/2015. FINDINGS: Lower thorax: Emphysematous change. Bibasilar scar/atelectasis. Cardiomegaly. Trace pericardial fluid . Liver: Normal. Biliary/Gallbladder: Gallbladder is normal. No bile duct dilation. Pancreas: Pancreatic atrophy. Spleen: Normal. Adrenals:No mass. Kidneys: No mass, stone, or hydronephrosis. GI tract: No small or large bowel dilation. Normal appendix. Long segment wall thickening and loss of haustration in the ascending colon. Mesentery/Peritoneum: No ascites, mass, or free air. Retroperitoneum: No mass. Atherosclerotic abdominal aortic and/or arterial calcifications. Pelvis: Uterus surgically absent. Mild wall thickening in the nondistended bladder. Soft Tissues: Soft tissues and body wall unremarkable. Bones: No acute osseous finding. IMPRESSION: Nonspecific wall thickening of the ascending colon as can be seen with infection, inflammation, and i schemia. No other acute abdominopelvic process detected. Reviewed, dictated and finalized at location K. IMPRESSION: Nonspecific wall thickening of the ascending colon as can be seen with infectio n, inflammation, and ischemia. No other acute abdominopelvic process detected.
--- NOTE | ~2021-12-26 | US_ITS ---
EXAMINATION: US renal BI DATE: 12/28/2021 11:11 INDICATION: Renal failure TECHNIQUE: Multiple grayscale and Doppler ultrasound images of the kidneys were obtained. COMPARISON: None. FINDINGS: The right kidney measures 12.6 x 6.4 x 6.8 cm. The left kidney measures 12.2 x 6.0 x 6.9 cm . The kidneys demonstrate normal parenchymal echogenicity. There is no hydronephrosis. The bladder is decompressed by Rey catheter. IMPRESSION: 1. Normal kidneys without hydronephrosis. Reviewed, dictated and finalized at location B.
--- NOTE | ~2021-12-26 | CT_ITS ---
EXAMINATION: CT chest abdomen pelvis wo con DATE: 12/30/2021 09:35 INDICATION: leukocytosis, ascending colitis, elevated lvier en . TECHNIQUE: Computed tomography (CT) of the chest, abdomen, and pelvis was performed with 100 mL Omnip aque-350 intravenous contrast. Automated exposure control and iterative reconstruction technique were employed. The dose-length product was 473.87 mGy-cm. COMPARISON: CT abdomen pelvis 12/26/2021. CTPA 05/28/2021. FINDINGS: Thoracic aorta: Mild arch calcification. Lung parenchyma and airways: Emphysematous change. Bibasilar atelectasis.. Thoracic inlet, axillae and chest wall: No thyroid or soft tissue mass. No axillary lymphadenopathy. Mediastinum: No mass or lymphadenopathy. Heart and pericardium: Normal heart size. No pericardial effusion. Coronary artery calcifications: Absent. Pleura: Small volume bilateral pleural effusions. Thoracic bones: No acute osseous finding in the chest. ABDOMEN/PELVIS: Liver: Normal. Biliary/Gallbladder: Mildly distended. No surrounding inflammatory change or fluid. No bile duct dila tion. Pancreas: No mass or duct dilation. Spleen: Normal. Adrenals:No mass. Kidneys: No mass, stone, or hydronephrosis. Mild perinephric stranding. GI tract: No small or large bowel dilation. Normal appendix. Interval resolution of the previously de scribed ascending colon wall thickening. Mesentery/Peritoneum: No ascites, mass, or free air. Retroperitoneum: No mass Pelvis: Bladder decompressed by a Rey catheter. Pelvic organs are within normal limits. Soft Tissues: Soft tissues and body wall unremarkable. Abdominopelvic bones: No acute osseous finding in the abdomen/pelvis. IMPRESSION: Small bilateral pleural effusions, with adjacent atelectasis. Infection not excluded. Mild gallbladde r hydrops, without surrounding inflammatory change. Otherwise no acute finding in the chest, abdomen, or pelvis. Reviewed, dictated and finalized at location K. IMPRESSION: Small bilateral pleural effusions, with adjacent atelectasis. Infection not exc luded. Mild gallbladder hydrops, without surrounding inflammatory change. Other cordoba no acute finding in the chest, abdomen, or pelvis.
--- NOTE | ~2021-12-26 | US_ITS ---
EXAMINATION: US abdomen limited DATE: 12/26/2021 18:05 INDICATION: Epigastric pain, vomiting TECHNIQUE: Multiple grayscale and Doppler ultrasound images of limited portions of the abdomen were o btained. COMPARISON: 05/29/2021 FINDINGS: Visualized portions of the pancreas are normal. Echogenic liver parenchyma. No surface nodu larity. Normal hepatopetal flow in the main portal vein. Elongated gallbladder measuring up to 13 cm in length, 3.4 cm in width, without wall thickening or pericholecystic fluid. The normal common bile duct measures 7 mm. There was no sonographic Pace sign. IMPRESSION: 1. Hepatic steatosis. 2. Elongated gallbladder may represent mild hydrops or a normal finding in this patient. Reviewed, dictated and finalized at location K.
--- NOTE | ~2021-12-26 | US_ITS ---
EXAMINATION: US biopsy renal DATE: 12/29/2021 13:38 INDICATION: Renal failure. TECHNIQUE: The procedure including the risks, benefits, and alternatives was discussed with the patie nt. Risks discussed included bleeding and infection. The patient understood the risks and agreed to p roceed. A timeout was performed to verify the patient's name, date of , and procedure to be p erformed. The skin overlying the left kidney was prepped and draped in usual sterile fashion. Anest hetic was administered with 1% lidocaine subcutaneously. An 18 gauge core biopsy needle was then use d to obtain 4 core biopsy specimens under continuous sonographic guidance. The entry site was cleaned and dressed. There were no immediate complications. FINDINGS: Ultrasound images demonstrate the needle in the kidney. IMPRESSION: 1. Ultrasound-guided random left kidney core needle biopsy. Reviewed, dictated and finalized at location A.
--- NOTE | ~2021-12-26 | CT_ITS ---
EXAMINATION: CT brain wo con DATE: 12/26/2021 18:48 INDICATION: weakness, confusion . TECHNIQUE: Computed tomography (CT) of the head was performed without intravenous contrast. The mA wa s adjusted according to patient size. Iterative reconstruction technique was employed. The dose-lengt h product was 605.33 mGy-cm. COMPARISON: None FINDINGS: No acute intracranial hemorrhage or extra-axial fluid collection. No hydrocephalus, mass, or herniation. No acute ischemic infarct. Unremarkable dural venous sinus attenuation. No acute osseous abnormality. The aerated spaces are clear. IMPRESSION: No acute intracranial process. Reviewed, dictated and finalized at location K.
--- NOTE | ~2021-12-26 | XR_ITS ---
EXAMINATION: XR chest 2V DATE: 12/27/2021 08:51 INDICATION: COPD . Hyponatremia. TECHNIQUE: frontal and lateral views of the chest were obtained. COMPARISON: Chest radiograph dated 08/09/2021 FINDINGS: New mild opacities at the left lung base with blunting at the left posterior sulcus consistent with s mall left pleural effusion and associated atelectasis versus less likely pneumonia. Right lung remain s clear. No pneumothorax or right-sided pleural effusion. Cardiomegaly. Visualized bones and soft tis sues are unremarkable. IMPRESSION: 1. Small left basilar pleural effusion with mild associated atelectasis versus less likely pneumonia. 2. Cardiomegaly. Reviewed, dictated and finalized at location A.
--- NOTE | ~2021-12-26 | US_ITS ---
US abdomen limited INDICATION: Elevated liver enzymes PROCEDURE: Realtime right upper abdominal ultrasound. COMPARISON: No prior studies for comparison. FINDINGS: The pancreas is normal without focal mass or pancreatic ductal dilation. Liver echotexture is normal without focal mass or intrahepatic biliary dilatation. There is normal directional flow i n the portal vein. The gallbladder is normal without stones, gallbladder wall thickening or pericholecystic fluid. Comm on bile duct measures 6.7 mm. No sonographic Pace's sign. IMPRESSION: 1: Normal limited abdominal ultrasound. Reviewed, dictated and finalized at location A.
[2021-12-26 16:49] LABS: Basophils Percent Auto 0.1 % (0.2-1.2); Eosinophils Absolute Auto 0.1 K/mm3 (0-0.3); Eosinophils Percent Auto 0.6 % (0-4.4); Hematocrit 34.2 % (37.0-47.0); Hemoglobin 12.2 g/dL (12.0-15.0); Immature Granulocyte Absolute 0.35 K/mm3 (0.00-0.031); Immature Granulocyte Percent A 2.9 % (0-0.5); Immature Platelet Fraction Pct 9.8 % (0.9-11.2); Lymphocytes Absolute Auto 0.21 K/mm3 (0.9-3.2); Lymphocytes Percent Auto 1.7 % (18.3-44.2); Mean Corpuscular HGB Conc 35.7 g/dl (32-36); Mean Corpuscular Hemoglobin 34.1 pg (26-34); Mean Corpuscular Volume 95.5 fl (80-100); Mean Platelet Volume 11.5 fl (7.4-10.4); Monocytes Absolute Auto 0.6 K/mm3 (0.1-0.6); Monocytes Percent Auto 5.1 % (2.6-8.5); Neutrophils Absolute Auto 10.8 K/mm3 (1.3-6.7); Neutrophils Percent Auto 89.6 % (45.5-73.1); Platelet Count Result 53 k/mm3 (150-375); Red Blood Count 3.58 M/mm3 (4.2-5.4); Red Cell Distribution Width 14.3 % (11.5-14.5); White Blood Count 12.1 K/mm3 (4.5-10.0)
[2021-12-26 17:02] LABS: Alanine Aminotransferase 25 U/L (6-35); Albumin Level 3.5 g/dL (3.5-5.1); Alkaline Phosphatase 293 U/L (38-126); Anion Gap 18 mmol/L (8-16); Aspartate Amino Transferase 43 U/L (14-36); Bilirubin,Total 2.1 mg/dL (0.2-1.3); Blood Urea Nitrogen 46 mg/dL (7-17); Calcium 8.9 mg/dL (8.4-10.2); Carbon Dioxide 17 mmol/L (22-30); Chloride 84 mmol/L (98-107); Estimated CRCL calculation 12 ml/min; Estimated Glomerular Filt Rate 12; Glucose 73 mg/dL (65-110); Lipase 20 U/L (23-300); Potassium 4.5 mmol/L (3.4-5.0); Sodium 119 mmol/L (137-145)
[2021-12-26 17:04] LABS: Platelet Estimate Decreased (Adequate)
[2021-12-26] MEDS: SODIUM CHLORIDE 0.9% IV 1,000 ML 999 ML IV CONT (17:35)
--- NOTE | 2021-12-26 17:39 | ED.WEAKNESS ---
HPI - Weakness General Chief complaint: Weakness <Yenni Duarte PA-C - Last Filed: 12/26/21 20:45> Stated complaint: Weakness, sent over from urgent care <Yenni Duarte PA-C - Last Filed: 12/26/21 20:45> Time Seen by Provider: 12/26/21 17:10 <Yenni Duarte PA-C - Last Filed: 12/26/21 20:45> Source: patient <MAY Dinero Last Filed: 12/26/21 20:45> Mode of arrival: wheelchair <MAY Dinero Last Filed: 12/26/21 20:45> Limitations: no limitations <MAY Dinero Last Filed: 12/26/21 20:45> History of Present Illness HPI Narrative: This is a 66 year old female that presents to the ER for weakness. Reports she has had nausea and vomiting ongoing over the last couple of days. Reports today she started to become generally weak and a little confused. She originally presented to urgent care and they sent her to the ER for further evaluation. Denies fever, cough, abdominal pain, or dysuria. <Yenni Duarte PA-C - Last Filed: 12/26/21 20:45> Related Data Home medications: Home Medications Medication Instructions Recorded Confirmed estradiol 1 mg tablet 1 mg PO DAILY 11/25/19 12/26/21 cholecalciferol (vitamin D3) 25 25 mcg PO DAILY 02/04/20 12/26/21 mcg (1,000 unit) tablet hydrocodone 5 mg-acetaminophen 325 1 tablet PO TID PRN pain 02/18/21 12/26/21 mg tablet albuterol sulfate 90 mcg/actuation 2 puff inhalation Q4H PRN 05/28/21 12/26/21 aerosol inhaler shortness of breath or wheezing loratadine 10 mg tablet (Claritin) 10 mg PO DAILY PRN Allergy Symptoms 05/28/21 12/26/21 multivitamin-ferrous 1 tablet PO DAILY 05/28/21 12/26/21 fumarate-folic acid 18 mg-400 mcg tablet (Centrum Complete) omega-3 fatty acids-vitamin E 1 cap PO DAILY 05/28/21 12/26/21 1,000 mg capsule vitamin E 268 mg (400 unit) capsule 400 unit PO DAILY 05/28/21 12/26/21 ascorbic acid (vitamin C) 500 mg 500 mg PO BID 12/26/21 12/26/21 tablet benzonatate 200 mg capsule 200 mg PO TID PRN Cough 12/26/21 12/26/21 umeclidinium 62.5 mcg-vilanterol 1 inh inhalation DAILY 12/26/21 12/26/21 25 mcg/actuation powdr for inhalation (Anoro Ellipta) <Yenni Duarte PA-C - Last Filed: 12/26/21 20:45> Allergies/Adverse reactions: Allergies Allergy/AdvReac Type Severity Reaction Status Date / Time No Known Allergies Allergy Verified 12/26/21 15:23 <Yenni Duarte PA-C - Last Filed: 12/26/21 20:45> Review of Systems Review of Systems: CONSTITUTIONAL: Denies fever ENT: Denies congestion, sore throat RESPIRATORY: Denies cough GASTROINTESTINAL: Reports nausea and vomiting. Denies abdominal pain, or diarrhea. GENITOURINARY: Reports hematuria. Denies dysuria NEUROLOGIC: Reports weakness. <Yenni Duarte PA-C - Last Filed: 12/26/21 20:45> All systems reviewed & are unremarkable except as noted in HPI and below <Yenni Duarte PA-C - Last Filed: 12/26/21 20:45> [facility] Past Medical History Medical History: Medical History Anxiety COPD with emphysema Degenerative disc disease Gastroesophageal reflux disease Vitamin D deficiency, unspecified <Yenni Duarte PA-C - Last Filed: 12/26/21 20:45> Surgical History Surgical History: Surgical History History of cardiac catheterization (02/2021) Right coronary dominant circulation with no evidence of coronary disease. History of section History of colonoscopy with polypectomy History of hysterectomy History of kyphoplasty History of repair of right rotator cuff History of tubal ligation Status post excision of Hernández's neuroma <Yenni Duarte PA-C - Last Filed: 12/26/21 20:45> Family History Family History: Family History Father Family history of suicide Family history of rheumatoid arthritis Sibling F
[2021-12-26 17:55] LABS: Creatine Kinase 24 U/L (30-135)
[2021-12-26 18:28] LABS: Lactic Acid Reflex 1.3 mmol/L (0.7-2.0)
[2021-12-26 18:36] LABS: Alveolar/Arterial O2 Gradient 45.2 mmHg; Base Excess ABG -6.3 mEq/l (+/-2.0); Carboxyhemoglobin 0.4 % THb (0-2.0); Fractional Inspired Oxygen 21 %; HCO3 ABG 17.1 mEq/l (22.0-26.0); Methemoglobin ABG 0.1 %THb (0-1.5); Oxygen Content ABG 16.4 %vol (16.0-22.0); Oxygen Saturation ABG 94.6 % (95.0-100.0); PO2 FiO2 Ratio Arterial Blood 3.38 %; Reduced Hemoglobin 6.5 %THb (0-5.0); Total Hemoglobin 12.5 g/dL (12.0-18.0); pH ABG 7.403 (7.350-7.450)
[2021-12-26 18:36] LABS: Appearance Urine Turbid (Clear); Bilirubin Urine 1+ (Negative); Blood Urine 2+ (Negative); Color Urine Yellow (Yellow); Glucose Urine UA Negative (Negative); Ketones Urine Negative (Negative); Leukocyte Esterase Ur 3+ LEU/UL (Negative); Nitrate Urine Negative (Negative); Protein Urine 3+ mg/dL (Negative); Specific Grav Ur 1.015 (1.001-1.035); Urobilinogen Urine 0.2 mg/dL (<2.0); pH Urine 5.5 (5.0-9.0)
[2021-12-26 18:36] LABS: INR 1.3; Prothrombin Time 15.6 Seconds (11.1-14.7)
[2021-12-26 18:37] LABS: Device ROOM AIR; Modified Allen's Test Pass; Site Drawn RIGHT RADIAL
[2021-12-26 18:37] LABS: Partial Thromboplastin Time 31.4 SECONDS (22.3-36.8)
[2021-12-26 18:38] LABS: Ethanol < 10 mg/dL (<10)
[2021-12-26 18:42] LABS: Bacteria Urine 2+ /hpf; Squamous Epithelial Cell Urine Many /hpf (Few); WBC Clumps Urine Present /HPF; WBC Urine >75 /hpf
[2021-12-26 18:43] LABS: Ammonia < 9 umol/L (9-30)
[2021-12-26 18:44] LABS: Add Urine Microscopic? YES
[2021-12-26 18:57] LABS: SARS-CoV-2 RNA PCR Negative
[2021-12-26] MEDS: ONDANSETRON INJ 4 MG/2 ML VIAL IV PUSH (18:57)
[2021-12-26 19:11] LABS: CRP 43.4 mg/dL (<1.0)
[2021-12-26 19:19] LABS: Amphetamine Screen Urine Negative (Negative); Barbiturate Screen Urine Negative (Negative); Benzodiazepines Screen Urine Negative (Negative); Cannabinoid Screen Urine Negative (Negative); Cocaine Screen Urine Negative (Negative); Methadone Screen Urine Negative (Negative); Opiate Screen Urine Positive (Negative); Phencyclidine Screen Urine Negative (Negative)
--- NOTE | 2021-12-26 19:32 | PM.IMHP ---
H&P: HPI History of Present Illness Date/Time: 12/26/21 19:32 Chief Complaint: generalized weakness Narrative: this is a 66-year-old female with past medical history significant for COPD /emphysema, chronic back pain, generalized anxiety disorder. patient presents to the emergency room due to generalized weakness has had nausea and vomiting for the last 2 days unable to keep anything down heart chills, no diarrhea, no abdominal pain, has not been able to keep anything down for the last 2 days or so, denies any cough, sputum production, shortness of breath, wheezing. Preliminary workup was significant for urinalysis with numerous WBCs present, basic metabolic profile was significant for a creatinine of 3.8, BUN 46, chloride 84, sodium 119 , lactic acid was 1.3, alk phos was 273, right upper quadrant ultrasound was significant for hepatic steatosis and gallbladder hydrops. A CT of abdomen and pelvis was significant for nonspecific wall thickening of the ascending colon as can be seen with infection, inflammation, and ischemia, no other acute abdominopelvic process detected. patient has been admitted for further evaluation management and treatment. Review of Systems Review of Systems: nausea, vomiting, generalized weakness Constitutional: Constitutional: Reports chills, Denies fever(s), Denies night sweats, Reports poor appetite and Reports weakness Eyes: Eyes: Denies change in vision ENT: Denies dysphagia, Denies vertigo, Denies dizziness and Denies odynophagia Cardiovascular: Cardiovascular: Denies chest pain, Denies syncope, Denies irregular heart rhythm, Denies lightheadedness, Denies palpitations and Denies dyspnea on exertion Respiratory: Respiratory: Denies chest congestion, Denies cough, Denies excessive phlegm production and Denies dyspnea Gastrointestinal: Gastrointestinal: Denies abdominal pain, Denies coffee ground emesis, Denies dyspepsia, Denies heartburn, Denies diarrhea, Reports nausea and Reports vomiting Genitourinary: Genitourinary: Reports dysuria Musculoskeletal: Musculoskeletal: Reports back pain, Reports myalgias and Reports muscle weakness Integumentary/Breasts: Skin/Breast: Denies rash Neurologic: Denies vertigo, Denies dizziness, Denies syncope, Denies focal weakness and Denies Sensory deficit (Neuro) Psychiatric: Psychiatric: Reports no additional psychiatric complaints and Reports as per HPI Endocrine: Endocrine: Denies cold intolerance, Denies flushing, Denies heat intolerance, Denies polyphagia, Denies polydipsia, Denies polyuria and Denies palpitations Hematologic/Lymphatic: Hematologic/Lymphatic: Reports no additional hematologic/lymphatic complaints and Reports as per HPI Allergic/Immunologic: Allergic/Immunologic: Reports no additional allergic/immunologic complaints and Reports as per HPI PMFSH Past Medical History Medical History Anxiety COPD with emphysema Degenerative disc disease Gastroesophageal reflux disease Vitamin D deficiency, unspecified Surgical History Surgical History History of cardiac catheterization (02/2021) Right coronary dominant circulation with no evidence of coronary disease. History of section History of colonoscopy with polypectomy History of hysterectomy History of kyphoplasty History of repair of right rotator cuff History of tubal ligation Status post excision of Hernández's neuroma Family History Family History Father Family history of suicide Family history of rheumatoid arthritis Sibling Family history of osteoarthritis Mother Family history of chronic obstructive pulmonary disease Family history of malignant neoplasm Daughter Asthma Social History Social History Social History: Surrogate decision maker: Israel Hdez
--- NOTE | 2021-12-26 20:56 | ADMGEN ---
This patient, Rosemarie Chung, was admitted to IMU Room 214-01 at 2055. Patient/family oriented to hospital policies and general routines including ID bracelet, bed and alarms, visiting hours, pain management, procedures, bathroom and other care routines, personal items, smoking policy, room service/diet, and visiting hours. Information on how to activate the Rapid Response Team has been discussed. Patient/Family are encouraged to report perceived risks to care and to ask questions if they do not understand what they are told or what they should do.
[2021-12-27] VITALS (9 sets, daily range): BP systolic 106–144; BP diastolic 57–72; PULSE 82–126; RESP 18–24; TEMP 36.2–36.9; O2SAT 93–98; BMI 21.9
[2021-12-27 04:40] LABS: Basophils Absolute Auto 0.1 K/mm3 (0.0-0.1); Basophils Percent Auto 0.7 % (0.2-1.2); Eosinophils Percent Auto 0.2 % (0-4.4); Hematocrit 29.3 % (37.0-47.0); Hemoglobin 10.7 g/dL (12.0-15.0); Immature Granulocyte Absolute 0.74 K/mm3 (0.00-0.031); Immature Granulocyte Percent A 5.3 % (0-0.5); Immature Platelet Fraction Pct 7.5 % (0.9-11.2); Lymphocytes Absolute Auto 0.37 K/mm3 (0.9-3.2); Lymphocytes Percent Auto 2.7 % (18.3-44.2); Mean Corpuscular HGB Conc 36.5 g/dl (32-36); Mean Corpuscular Hemoglobin 33.5 pg (26-34); Mean Corpuscular Volume 91.8 fl (80-100); Mean Platelet Volume 11.7 fl (7.4-10.4); Monocytes Absolute Auto 1.3 K/mm3 (0.1-0.6); Monocytes Percent Auto 9.1 % (2.6-8.5); Neutrophils Absolute Auto 11.4 K/mm3 (1.3-6.7); Platelet Count Result 50 k/mm3 (150-375); Red Blood Count 3.19 M/mm3 (4.2-5.4); White Blood Count 13.8 K/mm3 (4.5-10.0)
[2021-12-27 04:52] LABS: Anion Gap 15 mmol/L (8-16); Blood Urea Nitrogen 49 mg/dL (7-17); Calcium 8.2 mg/dL (8.4-10.2); Carbon Dioxide 15 mmol/L (22-30); Chloride 91 mmol/L (98-107); Estimated CRCL calculation 13 ml/min; Estimated Glomerular Filt Rate 12; Glucose 62 mg/dL (65-110); Potassium 4.3 mmol/L (3.4-5.0); Sodium 121 mmol/L (137-145)
[2021-12-27 05:16] LABS: Platelet Estimate Decreased (Adequate)
[2021-12-27 05:17] LABS: Crenated RBC 1+ (NORMAL)
--- NOTE | 2021-12-27 07:52 | PM.CNNEP ---
Assessment and Plan Additional Plan 1. The patient has acute kidney injury. Her baseline creatinine is normal at 0.5. She looks dehydrated and has had nausea and vomiting for the past 3 or 4 days and poor appetite so not taking anything in either. So this could all be pre renal azotemia. the patient does have nonspecific wall thickening of the ascending colon which could have led to the nausea and the vomiting. The patient also has a bladder infection which can lead to nausea vomiting and dehydration and also could affect the kidneys and directly. On the other hand patient could have some other sort of kidney disease that led to uremia and cause the nausea and vomiting the last few days but usually this is not characterized by such an explosive onset of the nausea and the vomiting. patient could have rhabdomyolysis. Will check a CK allergic interstitial nephritis.is is unlikely in this clinical scenario. Glomerulonephritis will be checked for as well. We will check urine electrolytes, renal ultrasound, Chest x-ray,CPK, serology and immunofixation. Will continue IV fluids. 2. The patient has hyponatremia. This is chronic. She is on pantoprazole which can rarely cause hyponatremia. She does not seem to have any cancer. Her screening is up-to-date. She does have COPD which can cause hyponatremia if severe, but is a diagnosis of exclusion. CT of the brain is negative. Hypothyroidism or adrenal insufficiency can do this. The patient's sodium corrected mildly overnight. She received some saline in the ER but is not on any now. Because she is dehydrated will continue the saline. Will check a sodium later today. Will also check a TSH, cortisol, serum and urine osmolality, and SPEP. 3. COPD. The patient is getting supportive care 4. GERD will try famotidine instead of pantoprazole. 5. The patient has metabolic acidosis. Her anion gap is 15. Her albumin level is 3.5. This is probably non anion gap metabolic acidosis, possibly from the renal failure. She is not having diarrhea. 6. The patient has nausea and vomiting. Evaluation per hospitalists. CT mentioned above. History of Present Illness Reason for Consult Consult date: 12/27/21 Chief Complaint Chief complaint: Acute renal failure, hyponatremia, UTI History of Present Illness Narrative: Barbara is a very pleasant 66-year-old lady who has multiple medical problems including chronic neck hyponatremia with a baseline sodium between 125 and 130, anxieties, COPD, degenerative disc disease, GERD, and vitamin-D deficiency. She says that her sodium levels have been low for years. She is not sure why they are. She has no cancer. She is up-to-date with her cancer screening such as mammogram Pap smears and colonoscopy. The patient is on pantoprazole as an outpatient and also occasionally takes hydrocodone. The patient says she went to a horse show on Saturday. He went home early from that and has had poor appetite, nausea, and vomiting. She has not thrown up anything black or bloody. She does not have black or bloody stools. She has some abdominal discomfort in the epigastric region. All these things continued through the the last few days. She says that she since been unable to eat because of poor appetite. She also has been drinking lots of fluid. she came to the emergency room. Her creatinine was elevated her sodium was low. She was felt to be dehydrated so was given some IV fluids. She was also found to have a UTI so was placed on antibiotics after culture was obtained. Review of Systems Constitutional: Constitutional: Reports no additional constitutional complaints Eyes: Eyes: Reports no additional eye complaints ENT: Reports system reviewed and no additional complaints, except as documented Cardiovascular: Cardiovascular: Reports no additional cardiovascular complaints Respiratory: Respiratory: Reports no additional respiratory
[2021-12-27] MEDS: UMECLIDINIUM/VILANTEROL 62.5-25 MCG ELLIPTA 1 PUFF INHALATION (08:40)
[2021-12-27 09:17] LABS: Creatine Kinase < 20 U/L (30-135)
[2021-12-27] MEDS: SODIUM BICARBONATE 8.4% 150 MEQ in DEXTROSE 5% 1,000 ML 950 ML 100 MEQ IV CONT (09:42)
[2021-12-27] MEDS: estradioL 1 MG TABLET PO (09:44)
[2021-12-27] MEDS: DICLOFENAC SOD 75 MG TABLET.EC PO ×2 (09:45→16:35)
[2021-12-27 10:38] LABS: Complement C3 68 mg/dL (88-165)
--- NOTE | 2021-12-27 12:17 | PM.IMPN ---
Progress Note: A&P Assessment and Plan (1) Acute kidney failure: Qualifiers: Acute renal failure type: unspecified Qualified Code(s): N17.9 - Acute kidney failure, unspecified Code(s): N17.9 - Acute kidney failure, unspecified Status: Acute (2) Chronic hyponatremia: Code(s): E87.1 - Hypo-osmolality and hyponatremia Status: Acute (3) Urinary tract infection: Qualifiers: Hematuria presence: with hematuria Urinary tract infection type: acute cystitis Qualified Code(s): N30.01 - Acute cystitis with hematuria Code(s): N39.0 - Urinary tract infection, site not specified Status: Acute (4) COPD with emphysema: Code(s): J43.9 - Emphysema, unspecified Status: Acute (5) Chronic obstructive pulmonary disease: Qualifiers: COPD type: unspecified COPD Qualified Code(s): J44.9 - Chronic obstructive pulmonary disease, unspecified Code(s): J44.9 - Chronic obstructive pulmonary disease, unspecified Status: Acute Plan Generalized weakness/nausea vomiting/altered mental status UTI started on Rocephin follow urine culture with colitis will change it to Zosyn Ascending colitis Severe hyponatremia 119 improved to 121 today continue to monitor slow rise planned 8-10 per day. Likely hypovolemic hyponatremia. TSH cortisol SPEP UPEP planned. And cortisol level normal at 16.7. Seem to have chronic hyponatremia ranging between 120-130 BRETT CK level normal creatinine 3.8 IV normal saline nephrology consulted. Baseline creatinine 0.5 likely prerenal. Renal ultrasound planned Metabolic acidosis on bicarb drip Mild hypoglycemia Thrombocytopenia no prior history. Platelet count of 53,000 Elevated LFT particularly Elevated alkaline phosphatase right upper quadrant ultrasound with hepatic steatosis and gallbladder hydrops COPD/emphysema Chronic back pain Generalized anxiety disorder GERD DVT prophylaxis Code status full code Subjective Date/time seen: 12/27/21 12:17 Interval history: HPI:?this is a 66-year-old female with past medical history significant for COPD /emphysema, chronic back pain, generalized anxiety disorder. patient presents to the emergency room due to generalized weakness has had nausea and vomiting for the last 2 days unable to keep anything down heart chills, no diarrhea, no abdominal pain, has not been able to keep anything down for the last 2 days or so, denies any cough, sputum production, shortness of breath, wheezing. Preliminary workup was significant for urinalysis with numerous WBCs present, basic metabolic profile was significant for a creatinine of? 3.8, BUN 46, chloride 84, sodium 119 , lactic acid was 1.3,? alk phos was 273, right upper quadrant ultrasound was significant for hepatic steatosis and gallbladder hydrops.? A CT of abdomen and pelvis was significant for?nonspecific wall thickening of the ascending colon as can be seen with infection, inflammation, and ischemia, no other acute abdominopelvic process detected. patient has been admitted for further evaluation management and treatment. 12/27/2021 feels a little better. No nausea vomiting. Abdomen is sore. . Review of Systems Review of Systems: All systems reviewed & are unremarkable except as noted in HPI and below Exam Narrative: GENERAL: The patient is well developed, not in acute distress HEENT: Nonicteric sclerae, PERRLA, EOMI. Oropharynx clear. Moist mucous membranes. Conjunctivae appear well perfused. CHEST: Chest wall is nontender. HEART: Regular rate and rhythm without murmur, rubs, or gallops LUNGS: Clear to auscultation bilaterally. no respiratory distress ABDOMEN: Soft, positive bowel sounds, non-tender, no organomegaly. SKIN: No rash, no excessive bruising, petechiae, or purpura. NEUROLOGIC: Cranial nerves II-XII intact, alert and oriented x 3, no gross motor deficits EXTREMITIES: no edema, cyanosis or clubbing Urogenital: Rey in place with clear
[2021-12-27 12:25] LABS: Sodium 119 mmol/L (137-145)
[2021-12-27 13:21] LABS: Thyroid Stimulating Hormone Reflex 0.967 uIU/mL (0.465-4.68)
[2021-12-27] MEDS: HYDROcodone/acetaminophen (*CRX) 5-325 MG TABLET 1 TAB PO ×2 (15:34→21:13)
[2021-12-27] MEDS: LORazepam (*CRX) 0.5 MG TABLET PO ×2 (15:38→21:13)
[2021-12-27] MEDS: METAXALONE 800 MG TABLET PO ×2 (16:36→21:14)
[2021-12-27 17:03] LABS: Creatinine Urine 64.4 mg/dL; Total Protein Urine Random 152 mg/dL; Ur Ttl Prot Creatinine Ratio 2.36 mg/mg (0-0.20); Urea Random Urine 342 MG/DL
[2021-12-27 17:04] LABS: Sodium Urine Random 15 meq/L
[2021-12-27 18:35] LABS: Sodium 119 mmol/L (137-145)
--- NOTE | 2021-12-27 19:43 | PC.NURSE ---
Spoke with Dr. Schultz regarding Current sodium, Continue current plan of care and meds. Call next sodium only if it drops.
[2021-12-27] MEDS: ATORVASTATIN 20 MG TABLET PO (21:12)
[2021-12-28] VITALS (13 sets, daily range): BP systolic 113–132; BP diastolic 52–67; PULSE 73–96; RESP 12–16; TEMP 36.3–36.7; O2SAT 95–100
[2021-12-28 01:12] LABS: Sodium 116 mmol/L (137-145)
[2021-12-28] MEDS: SODIUM CHLORIDE 3% 500 ML 60 ML IV CONT (02:07)
[2021-12-28 06:59] LABS: Alanine Aminotransferase 34 U/L (6-35); Albumin Level 2.4 g/dL (3.5-5.1); Alkaline Phosphatase 331 U/L (38-126); Anion Gap 13 mmol/L (8-16); Aspartate Amino Transferase 105 U/L (14-36); Bilirubin,Total 1.8 mg/dL (0.2-1.3); Blood Urea Nitrogen 56 mg/dL (7-17); Calcium 7.7 mg/dL (8.4-10.2); Carbon Dioxide 21 mmol/L (22-30); Chloride 88 mmol/L (98-107); Estimated CRCL calculation 13 ml/min; Estimated Glomerular Filt Rate 12; Glucose 120 mg/dL (65-110); Magnesium 1.9 mg/dL (1.6-2.3); Potassium 3.6 mmol/L (3.4-5.0); Sodium 122 mmol/L (137-145)
--- NOTE | 2021-12-28 07:13 | PC.NURSE ---
Okay to resume sodium bicarbonate.
[2021-12-28 08:05] LABS: Hematocrit 28.5 % (37.0-47.0); Hemoglobin 10.4 g/dL (12.0-15.0); Immature Platelet Fraction Pct 10.3 % (0.9-11.2); Mean Corpuscular HGB Conc 36.5 g/dl (32-36); Mean Corpuscular Hemoglobin 33.4 pg (26-34); Mean Corpuscular Volume 91.6 fl (80-100); Mean Platelet Volume 11.6 fl (7.4-10.4); Platelet Count Result 62 k/mm3 (150-375); Red Blood Count 3.11 M/mm3 (4.2-5.4); Red Cell Distribution Width 14.6 % (11.5-14.5); White Blood Count 15.4 K/mm3 (4.5-10.0)
[2021-12-28] MEDS: UMECLIDINIUM/VILANTEROL 62.5-25 MCG ELLIPTA 1 PUFF INHALATION (09:08)
[2021-12-28 09:10] LABS: Band Neutrophils Percent 33 % (0-6); Eosinophils Absolute Manual 0.15 K/mm3 (0.02-0.5); Eosinophils Percent Manual 1 % (0-4); Lymphocytes Absolute Manual 0.61 K/mm3 (1.1-4.5); Metamyelocytes Percent 2 %; Monocytes Absolute Manual 0.15 K/mm3 (0.1-0.90); Monocytes Percent Manual 1 % (3-9); Neutrophils Absolute Manual 14.16 K/mm3 (1.7-7.2); Neutrophils Percent Manual 59 % (46-73); Total Cells Counted 100
[2021-12-28 09:11] LABS: Anisocytosis 1+ (NORMAL)
[2021-12-28 09:12] LABS: Poikilocytosis 1+ (NORMAL)
[2021-12-28 09:13] LABS: Hypochromasia 1+ (NORMAL)
[2021-12-28 09:14] LABS: Burr Cells 1+ (NORMAL); Crenated RBC 2+ (NORMAL)
[2021-12-28 09:17] LABS: Basophilic Stippling 2+ (NORMAL); Toxic Granulation Present (NORMAL)
[2021-12-28] MEDS: estradioL 1 MG TABLET PO (09:18)
[2021-12-28] MEDS: DICLOFENAC SOD 75 MG TABLET.EC PO ×2 (09:18→17:54)
[2021-12-28 11:56] LABS: Sodium 122 mmol/L (137-145)
--- NOTE | 2021-12-28 13:09 | PM.PNNEP ---
Progress Note: A&P Additional Plan 1. The patient has acute kidney injury. Her baseline creatinine is normal at 0.5. her creatinine is stable at around 3.7. Renal ultrasound is normal. Fractional excretion of sodium is low suggestive of pre renal azotemia. CPK is not elevated. This could be dehydration from the nausea and vomiting. The patient did have thickening of intestinal molina on CT so could have some affect of that on the kidneys. The patient also has a bladder infection which could affect the kidneys as well. she does have 3+ protein in the urine and had some protein in the urine back in 2019 as well. She also had blood in the urine back in 2019. She had an RITA which was negative in 2020. Her rheumatoid factor was positive in 2020. She may have some sort of collagen vascular disease diffusely but I am not sure that it is in the kidneys. At this point will continue hydration and see if the renal function improves. If it does not consider renal biopsy down the line. Will continue IV fluids. 2. The patient has hyponatremia. This is chronic. Her baseline sodium is around 130. It is however much worse now. Urine sodium is low. Osmolality is are pending. SPEP is pending. Urinalysis showed a specific gravity 1.015. TSH and cortisol are both normal. Chest x-ray is okay. Head CT is negative. The higher specific gravity speaks in favor of a higher urine osmolality, consistent with SIADH. because she does have chronic hyponatremia she probably does have SIADH but it is the process superimposed making the sodium so much lower that we are trying to diagnose as well. Yesterday her sodium was 119. Because of physical exam and urine electrolytes it was felt that she was dehydrated so she was given IV fluids. However the sodium dropped to 116. So she was given 3% saline for 4 hours and the sodium came up to 122. She still looks dehydrated to me so I think we ought to be giving her IV fluids. However her sodium dropped with the administration of the IV fluids. I do not want to give her diuretics because she is dehydrated. Her bicarbonate level is still low. So I think I will pi/senior research associate saline plus bicarb in the same bag and give her a mildly hypertonic solution. This was ordered this morning and 3 hours later her sodium is the same so at least the sodium did not drop with this solution. and then dropped to She is on pantoprazole which can rarely cause hyponatremia. She does not seem to have any cancer. Her screening is up-to-date. She does have COPD which can cause hyponatremia if severe, but is a diagnosis of exclusion. CT of the brain is negative. Hypothyroidism or adrenal insufficiency can do this. The patient's sodium corrected mildly overnight. She received some saline in the ER but is not on any now. Because she is dehydrated will continue the saline. Will check a sodium later today. Will also check a TSH, cortisol, serum and urine osmolality, and SPEP. 3. COPD. The patient is getting supportive care 4. GERD will try famotidine instead of pantoprazole. So far so good as far as managing her GERD. 5. The patient has metabolic acidosis. Her anion gap is 15. Her albumin level is 3.5. This is probably non anion gap metabolic acidosis, possibly from the renal failure. She is not having diarrhea. Continue bicarb supplement. 6. The patient has nausea and vomiting. Evaluation per hospitalists. CT mentioned above. Subjective Date/time seen: 12/28/21 13:09 Interval history: Patient feels about the same. She realizes now that she was a little confused yesterday. She called the event on Saturday are a horse show but it was actually a basketball game. Her horse show was scheduled for Saturday. Patient still feels somewhat blah. No shortness of breath or chest pain. She is eating okay. Review of Systems Cardiovascular: Cardiovascular: Reports no addit
[2021-12-28 16:03] LABS: Sodium 123 mmol/L (137-145)
--- NOTE | 2021-12-28 16:59 | PM.IMPN ---
Progress Note: A&P Assessment and Plan (1) Acute kidney failure: Qualifiers: Acute renal failure type: unspecified Qualified Code(s): N17.9 - Acute kidney failure, unspecified Code(s): N17.9 - Acute kidney failure, unspecified Status: Acute (2) Chronic hyponatremia: Code(s): E87.1 - Hypo-osmolality and hyponatremia Status: Acute (3) Urinary tract infection: Qualifiers: Hematuria presence: with hematuria Urinary tract infection type: acute cystitis Qualified Code(s): N30.01 - Acute cystitis with hematuria Code(s): N39.0 - Urinary tract infection, site not specified Status: Acute (4) COPD with emphysema: Code(s): J43.9 - Emphysema, unspecified Status: Acute (5) Chronic obstructive pulmonary disease: Qualifiers: COPD type: unspecified COPD Qualified Code(s): J44.9 - Chronic obstructive pulmonary disease, unspecified Code(s): J44.9 - Chronic obstructive pulmonary disease, unspecified Status: Acute Plan Generalized weakness/nausea vomiting/altered mental status UTI started on Rocephin follow urine culture with colitis will change it to Zosyn . Urine culture with E coli sensitive to currently Zosyn. Ascending colitis Severe hyponatremia 119 improved to 121 today continue to monitor slow rise planned 8-10 per day. Likely hypovolemic hyponatremia. TSH cortisol SPEP UPEP planned. And cortisol level normal at 16.7. Seem to have chronic hyponatremia ranging between 120-130 . Slowly improving BRETT CK level normal creatinine 3.8 IV normal saline nephrology consulted. Baseline creatinine 0.5 likely prerenal. Renal ultrasound with no hydronephrosis. Creatinine about the same. Renal biopsy plan but held due to thrombocytopenia. Metabolic acidosis on bicarb drip improving Mild hypoglycemia Thrombocytopenia no prior history. Platelet count of 53,000 Improved today Elevated LFT particularly Elevated alkaline phosphatase right upper quadrant ultrasound with hepatic steatosis and gallbladder hydrops. Continues to worsen. Recent right upper quadrant ultrasound was negative. COPD/emphysema Chronic back pain Generalized anxiety disorder GERD DVT prophylaxis Code status full code Subjective Date/time seen: 12/28/21 16:59 Interval history: HPI:?this is a 66-year-old female with past medical history significant for COPD /emphysema, chronic back pain, generalized anxiety disorder. patient presents to the emergency room due to generalized weakness has had nausea and vomiting for the last 2 days unable to keep anything down heart chills, no diarrhea, no abdominal pain, has not been able to keep anything down for the last 2 days or so, denies any cough, sputum production, shortness of breath, wheezing. Preliminary workup was significant for urinalysis with numerous WBCs present, basic metabolic profile was significant for a creatinine of? 3.8, BUN 46, chloride 84, sodium 119 , lactic acid was 1.3,? alk phos was 273, right upper quadrant ultrasound was significant for hepatic steatosis and gallbladder hydrops.? A CT of abdomen and pelvis was significant for?nonspecific wall thickening of the ascending colon as can be seen with infection, inflammation, and ischemia, no other acute abdominopelvic process detected. patient has been admitted for further evaluation management and treatment. 12/27/2021 feels a little better. No nausea vomiting. Abdomen is sore. . 12/28/2021 no overnight events. Sodium level is still low. Denies any new complaints. Feels still tired and confused. Review of Systems Review of Systems: All systems reviewed & are unremarkable except as noted in HPI and below Exam Narrative: GENERAL: The patient is well developed, not in acute distress HEENT: Nonicteric sclerae, PERRLA, EOMI. Oropharynx clear. Moist mucous membranes. Conjunctivae appear well perfused. CHEST: Chest wall is nontender. HEART: Regular rate and rhythm
[2021-12-28] MEDS: LORazepam (*CRX) 0.5 MG TABLET PO (17:54)
[2021-12-28] MEDS: HYDROcodone/acetaminophen (*CRX) 5-325 MG TABLET 1 TAB PO (17:54)
[2021-12-28] MEDS: polyethylene glycoL 3350 17 GM POWD.PACK PO (17:54)
[2021-12-28] MEDS: METAXALONE 800 MG TABLET PO (17:54)
[2021-12-28] MEDS: ATORVASTATIN 20 MG TABLET PO (21:41)
[2021-12-28 22:36] LABS: Sodium 124 mmol/L (137-145)
[2021-12-29] VITALS (16 sets, daily range): BP systolic 125–149; BP diastolic 58–70; PULSE 72–110; RESP 12–16; TEMP 36–36.8; O2SAT 95–99
[2021-12-29 05:36] LABS: Hematocrit 29.3 % (37.0-47.0); Hemoglobin 10.7 g/dL (12.0-15.0); Immature Platelet Fraction Pct 12.2 % (0.9-11.2); Mean Corpuscular HGB Conc 36.5 g/dl (32-36); Mean Corpuscular Hemoglobin 33.2 pg (26-34); Mean Platelet Volume 12.7 fl (7.4-10.4); Platelet Count Result 83 k/mm3 (150-375); Red Blood Count 3.22 M/mm3 (4.2-5.4); Red Cell Distribution Width 14.8 % (11.5-14.5); White Blood Count 18.3 K/mm3 (4.5-10.0)
[2021-12-29 05:41] LABS: Alanine Aminotransferase 71 U/L (6-35); Albumin Level 2.5 g/dL (3.5-5.1); Alkaline Phosphatase 381 U/L (38-126); Anion Gap 13 mmol/L (8-16); Aspartate Amino Transferase 236 U/L (14-36); Blood Urea Nitrogen 63 mg/dL (7-17); Calcium 7.8 mg/dL (8.4-10.2); Carbon Dioxide 25 mmol/L (22-30); Chloride 87 mmol/L (98-107); Estimated CRCL calculation 11 ml/min; Estimated Glomerular Filt Rate 11; Glucose 107 mg/dL (65-110); Magnesium 2.1 mg/dL (1.6-2.3); Potassium 4.2 mmol/L (3.4-5.0); Sodium 125 mmol/L (137-145)
[2021-12-29 06:51] LABS: Band Neutrophils Percent 20 % (0-6); Lymphocytes Absolute Manual 1.09 K/mm3 (1.1-4.5); Metamyelocytes Percent 2 %; Monocytes Absolute Manual 1.09 K/mm3 (0.1-0.90); Monocytes Percent Manual 6 % (3-9); Neutrophils Absolute Manual 15.73 K/mm3 (1.7-7.2); Neutrophils Percent Manual 66 % (46-73); Total Cells Counted 100
[2021-12-29 06:52] LABS: Anisocytosis 1+ (NORMAL); Atypical Lymphocytes Present; Hypochromasia 1+ (NORMAL)
[2021-12-29] MEDS: UMECLIDINIUM/VILANTEROL 62.5-25 MCG ELLIPTA 1 PUFF INHALATION (08:07)
[2021-12-29] MEDS: LORazepam (*CRX) 0.5 MG TABLET PO (11:15)
[2021-12-29] MEDS: estradioL 1 MG TABLET PO (11:16)
--- NOTE | 2021-12-29 14:51 | PM.PNNEP ---
Progress Note: A&P Additional Plan 1. The patient has acute kidney injury. Her baseline creatinine is normal at 0.5. Renal ultrasound is normal. Fractional excretion of sodium is low suggestive of pre renal azotemia. CPK is not elevated. In spite of hydration the patient's creatinine continues to rise. It is up to 4.2 today. She has multiple issues that are of concern for something intrinsic. She has a low platelet count. Possibly H U.S. or TTP? her hemoglobin is not dropping Very quickly (possibly , though speaking against this. ATN is always a possibility as well since she was sick for a few days in a row. Dr. Vivar and I talked at length. We are going to get on board because of the low platelet count. I talked with the pathologist to his going to review the slides to see if she has schistocytes. He ordered a renal biopsy and I agree that that is a reasonable thing. Her platelet count is high enough according to the radiologist. I reviewed the risks, benefits, alternatives, and process of the biopsy and she agrees with proceeding. 2. The patient has hyponatremia. This is chronic. Her baseline sodium is around 130. It was however much worse on admission. Urine sodium is low. Osmolality is are pending. SPEP is pending. Urinalysis showed a specific gravity 1.015. TSH and cortisol are both normal. Chest x-ray is okay. Head CT is negative. her urine output is fairly low Due to the renal failure. She still to dry to me day before yesterday and today she seems to be more euvolemic. So I will stop the IV fluids and continue with fluid restriction. Check another sodium tonight at 8:00 p.m.. 3. COPD. The patient is getting supportive care 4. GERD No symptoms. To start on from 07/21 5. The patient has metabolic acidosis. resolved. Will DC bicarb 6. The patient has nausea and vomiting. Evaluation per hospitalists. CT mentioned above. Subjective Date/time seen: 12/29/21 14:51 Interval history: Patient feels about the same. no chest pain or shortness of breath. No swelling. She is eating okay. Exam Narrative: WDWN in NAD skin no rash or subcu nodules head ncat lungs clear bilaterally cor reg no rub or gallop abd BS+ nontender and soft ext no edema. Objective Data Vital Signs Vital Signs: Vital Signs - 24 hr 12/28/21 16:00 12/28/21 16:00 12/28/21 18:00 Temperature 36.6 C Pulse Rate 85 91 90 Respiratory Rate 16 Blood Pressure 118/56 L Pulse Oximetry 100 Oxygen Delivery 12/28/21 16:00 12/28/21 20:00 12/28/21 20:00 Temperature 36.3 C L Pulse Rate 84 Respiratory Rate 16 Blood Pressure 132/52 L Pulse Oximetry 99 Oxygen Delivery Room Air Room Air 12/28/21 20:00 12/28/21 22:00 12/29/21 00:00 Temperature 36.3 C L Pulse Rate 81 79 81 Respiratory Rate 12 Blood Pressure 135/61 Pulse Oximetry 96 Oxygen Delivery 12/29/21 00:00 12/29/21 03:29 12/29/21 00:00 Temperature Pulse Rate 80 Respiratory Rate Blood Pressure Pulse Oximetry Oxygen Delivery Room Air Room Air 12/29/21 02:00 12/29/21 04:00 12/29/21 04:00 Temperature 36.2 C L Pulse Rate 75 74 73 Respiratory Rate 12 Blood Pressure 136/69 Pulse Oximetry 95 Oxygen Delivery 12/29/21 06:00 12/29/21 07:50 12/29/21 08:00 Temperature 36.4 C Pulse Rate 72 75 Respiratory Rate 16 Blood Pressure 149/70 H Pulse Oximetry 95 Oxygen Delivery Room Air 12/29/21 12:00 12/29/21 14:23 12/29/21 14:24 Temperature Pulse Rate 79 82 Respiratory Rate 16 16 Blood Pressure 131/58 L 125/67 Pulse Oximetry 99 97 Oxygen Delivery Room Air Intake/Output Intake/Output: Intake & Output 12/26/21 12/27/21 12/28/21 12/29/21 23:59 23:59 23:59 23:59 Intake Total 8213 879 0022 1250 Output Total 1150 250 380 Balance 1050 -210 1830 870 Meds/Results Medications: Active Medications
[2021-12-29] MEDS: metroNIDAZOLE 500 MG/ISO 100ML 500 MG/100 ML BAG 100 MG IVPB ×2 (15:11→21:37)
--- NOTE | 2021-12-29 15:16 | P.PNCROSS_ITS ---
Event Note Event Note Event Note: long discussion with patient, pathologist, Nephropath to read the biopsy on S at, and with Dr. Vivar. 25 minutes in discussions apart from clinical activity.
--- NOTE | 2021-12-29 15:16 | PM.EVENT ---
Event Note Event Note Event Note: long discussion with patient, pathologist, Nephropath to read the biopsy on Saturday, and with Dr. Vivar. 25 minutes in discussions apart from clinical activity.
--- NOTE | 2021-12-29 15:42 | PM.IMPN ---
Progress Note: A&P Assessment and Plan (1) Acute kidney failure: Qualifiers: Acute renal failure type: unspecified Qualified Code(s): N17.9 - Acute kidney failure, unspecified Code(s): N17.9 - Acute kidney failure, unspecified Status: Acute (2) Chronic hyponatremia: Code(s): E87.1 - Hypo-osmolality and hyponatremia Status: Acute (3) Urinary tract infection: Qualifiers: Hematuria presence: with hematuria Urinary tract infection type: acute cystitis Qualified Code(s): N30.01 - Acute cystitis with hematuria Code(s): N39.0 - Urinary tract infection, site not specified Status: Acute (4) COPD with emphysema: Code(s): J43.9 - Emphysema, unspecified Status: Acute (5) Chronic obstructive pulmonary disease: Qualifiers: COPD type: unspecified COPD Qualified Code(s): J44.9 - Chronic obstructive pulmonary disease, unspecified Code(s): J44.9 - Chronic obstructive pulmonary disease, unspecified Status: Acute Plan Generalized weakness/nausea vomiting/altered mental status UTI started on Rocephin follow urine culture with colitis will change it to Zosyn . Urine culture with E coli sensitive to currently Zosyn. With worsening renal failure or non improvement possibility of interstitial nephritis related to Zosyn is being sought. Discussed with Nephrology. Will change antibiotic to Levaquin and Flagyl. UTI E coli which was resistant to Levaquin. Will recheck urinalysis see if adequate treatment is already instituted for this Ascending colitis appendix was normal on recent CT scan Severe hyponatremia 119 on admission. Continues to improve slowly. Continue to monitor slow rise planned 8-10 per day. Likely hypovolemic hyponatremia. TSH cortisol SPEP UPEP planned. And cortisol level normal at 16.7. Seem to have chronic hyponatremia ranging between 120-130 . Slowly improving BRETT CK level normal creatinine 3.8 IV normal saline nephrology consulted. Baseline creatinine 0.5 likely prerenal. Renal ultrasound with no hydronephrosis. Creatinine about the same. Renal biopsy done today per IR Metabolic acidosis on bicarb drip improving Mild hypoglycemia Thrombocytopenia no prior history. Platelet count of 53,000. Continues to improve slowly. Will consult screener perfumer? TTP diagnosis althoughno schistocytes was seen in the peripheral smear Elevated LFT particularly Elevated alkaline phosphatase right upper quadrant ultrasound with hepatic steatosis and gallbladder hydrops. Continues to worsen. Recent right upper quadrant ultrasound was negative. Repeat ultrasound as LFT continues to worsen COPD/emphysema Chronic back pain Generalized anxiety disorder GERD DVT prophylaxis Code status full code Subjective Date/time seen: 12/29/21 15:42 Interval history: HPI:?this is a 66-year-old female with past medical history significant for COPD /emphysema, chronic back pain, generalized anxiety disorder. patient presents to the emergency room due to generalized weakness has had nausea and vomiting for the last 2 days unable to keep anything down heart chills, no diarrhea, no abdominal pain, has not been able to keep anything down for the last 2 days or so, denies any cough, sputum production, shortness of breath, wheezing. Preliminary workup was significant for urinalysis with numerous WBCs present, basic metabolic profile was significant for a creatinine of? 3.8, BUN 46, chloride 84, sodium 119 , lactic acid was 1.3,? alk phos was 273, right upper quadrant ultrasound was significant for hepatic steatosis and gallbladder hydrops.? A CT of abdomen and pelvis was significant for?nonspecific wall thickening of the ascending colon as can be seen with infection, inflammation, and ischemia, no other acute abdominopelvic process detected. patient has been admitted for further evaluation management and treatment. 12/27/2021 feels a little better. No nausea vomiting. A
--- NOTE | 2021-12-29 18:25 | PDONCCN ---
HPI - Date of Consult Date/Time: 12/29/21 18:25 Requesting Physician: Bryan Celis MD Primary Care Provider: Carlos Alcala, DO - Consult Narrative Reason for consult: Thrombocytopenia and anemia. Narrative: Rosemarie Chung is a 66 year old female with history of COPD, chronic back pain and generalized anxiety disorder came into the hospital with 3-4 days duration history of tiredness and fatigue with poor appetite. She has been complaining of some constipation but denies any diarrhea and rash. She denies any recent travel. Denies any tick bites. She was complaining of nausea and vomiting for 2 days duration. Initial blood testing showed creatinine of 3.[address] abdomen and pelvis showed nonspecific wall thickening of ascending colon. [place] count [place] [address] on admission now improved 83,000. She denies any bleeding and bruising. Creatinine was 3.8 on admission now up to 4.2. She was started on Rocephin for possible UTI. Patient had kidney biopsy done today. Abdominal ultrasound came back normal. Review of Systems - Review of Systems All systems reviewed & are unremarkable except as noted in HPI and bel - Neurologic Reports system reviewed and no additional complaints, except as documented, Reports weakness, Denies vertigo, Denies syncope, Denies focal weakness, Denies sensory deficit [facility] Medical History: Medical History (Last Reviewed 12/27/21 @ 07:56 by Alexis Schultz MD) Anxiety COPD with emphysema Degenerative disc disease Gastroesophageal reflux disease Vitamin D deficiency, unspecified Surgical History: Surgical History (Last Reviewed 12/27/21 @ 07:56 by Alexis Schultz MD) History of cardiac catheterization Onset Date: 02/2021 Right coronary dominant circulation with no evidence of coronary disease. History of section History of colonoscopy with polypectomy History of hysterectomy History of kyphoplasty History of repair of right rotator cuff History of tubal ligation Status post excision of Hernández's neuroma Family History: Family History (Last Reviewed 12/27/21 @ 07:56 by Alexis Schultz MD) Father Family history of suicide Family history of rheumatoid arthritis Sibling Family history of osteoarthritis Mother Family history of chronic obstructive pulmonary disease Family history of malignant neoplasm Daughter Asthma - Social History Social History: Social History (Last Reviewed 12/27/21 @ 07:56 by Alexis Schultz MD) Alcohol Use: Alcohol intake: current Drinks per week: 5 Substance Use: Substance use: current Substance use type: painkillers Substance use type: prescription drug Others: Spiritual care concerns: No Smoking Status: Smoking status: Former smoker Tobacco type: cigarettes Smoking end date: 12/27/03 Smoking Pack-years: Smoking packs per day: 1.5 Smoking cigarettes per day: 30.0 Years smoked: 25 Smoking pack-years: 37.50 Meds Home Medications Medication Instructions Recorded Confirmed Type estradiol 1 mg tablet 1 mg PO DAILY 11/25/19 12/26/21 History cholecalciferol (vitamin D3) 25 50 mcg PO DAILY 02/04/20 12/26/21 History mcg (1,000 unit) tablet hydrocodone 5 mg-acetaminophen 325 1 tablet PO TID PRN pain 02/18/21 12/26/21 History mg tablet albuterol sulfate 90 mcg/actuation 2 puff inhalation Q4H PRN 05/28/21 12/26/21 History aerosol inhaler shortness of breath or wheezing loratadine 10 mg tablet (Claritin) 10 mg PO DAILY PRN Allergy Symptoms 05/28/21 12/26/21 History multivitamin-ferrous 1 tablet PO WEEKLY 05/28/21 12/26/21 History fumarate-folic acid 18 mg-400 mcg tablet (Centrum Complete) vitamin E 268 mg (400 unit) capsule 400 unit PO DAILY 05/28/21 12/26/21 History nebulizer and compressor #1 ea 06/02/21 12/26/21 Rx ipratropium 0.5 mg-albuterol 3 mg 3 ml inhalation QID PRN shortness 07/26/21 12/26/21 Rx (2.5 mg ba
[2021-12-29] MEDS: polyethylene glycoL 3350 17 GM POWD.PACK PO (18:26)
[2021-12-29] MEDS: HYDROcodone/acetaminophen (*CRX) 5-325 MG TABLET 1 TAB PO (18:44)
[2021-12-29] MEDS: METAXALONE 800 MG TABLET PO (18:45)
[2021-12-29 19:35] LABS: Appearance Urine Cloudy (Clear); Bilirubin Urine 1+ (Negative); Blood Urine 2+ (Negative); Color Urine Yellow (Yellow); Glucose Urine UA Negative (Negative); Ketones Urine Negative (Negative); Leukocyte Esterase Ur 2+ LEU/UL (NEGATIVE); Nitrate Urine Negative (Negative); Protein Urine 2+ mg/dL (Negative); Urobilinogen Urine 0.2 mg/dL (<2.0); pH Urine 5.5 (5.0-9.0)
[2021-12-29 19:41] LABS: Bacteria Urine Trace /hpf; Mucus Urine Rare /lpf; Squamous Epithelial Cell Urine Occasional /hpf (Few); WBC Clumps Urine Present /HPF; WBC Urine >75 /hpf (0-3)
[2021-12-29 19:44] LABS: Add Urine Microscopic? YES
[2021-12-29 20:09] LABS: Eosinophil Urine None Seen % (None Seen)
[2021-12-29 20:20] LABS: Sodium 126 mmol/L (137-145)
[2021-12-29 20:23] LABS: Lactate Dehydrogenase 562 U/L (313-618)
[2021-12-29 20:23] LABS: Fibrinogen 781 mg/dl (215-510)
[2021-12-29] MEDS: FAMOTIDINE 20 MG TABLET PO (20:23)
[2021-12-29 20:51] LABS: Iron 45 ug/dL (37-170)
[2021-12-29 21:00] LABS: Percent Iron Saturation 24 % (20-50)
[2021-12-29 21:30] LABS: Folic Acid 19.2 ng/mL (2.76->20); Vitamin B12 > 1000.0 pg/mL (239-931)
[2021-12-30] VITALS (13 sets, daily range): BP systolic 125–153; BP diastolic 59–81; PULSE 73–96; RESP 12–18; TEMP 36–36.6; O2SAT 95–99
[2021-12-30 04:49] LABS: Hematocrit 28.6 % (37.0-47.0); Hemoglobin 10.2 g/dL (12.0-15.0); Mean Corpuscular HGB Conc 35.7 g/dl (32-36); Mean Corpuscular Hemoglobin 33.6 pg (26-34); Mean Corpuscular Volume 94.1 fl (80-100); Mean Platelet Volume 11.6 fl (7.4-10.4); Platelet Count Result 168 k/mm3 (150-375); Red Blood Count 3.04 M/mm3 (4.2-5.4); Red Cell Distribution Width 15.9 % (11.5-14.5); White Blood Count 20.8 K/mm3 (4.5-10.0)
[2021-12-30 04:52] LABS: Albumin Level 2.6 g/dL (3.5-5.1); Anion Gap 11 mmol/L (8-16); Blood Urea Nitrogen 70 mg/dL (7-17); Calcium 7.9 mg/dL (8.4-10.2); Carbon Dioxide 27 mmol/L (22-30); Chloride 88 mmol/L (98-107); Estimated CRCL calculation 11 ml/min; Estimated Glomerular Filt Rate 11; Glucose 99 mg/dL (65-110); Phosphorus 4.9 mg/dL (2.5-4.5); Potassium 4.4 mmol/L (3.4-5.0); Sodium 126 mmol/L (137-145)
[2021-12-30 04:54] LABS: Alanine Aminotransferase 79 U/L (6-35); Albumin Level 2.6 g/dL (3.5-5.1); Alkaline Phosphatase 388 U/L (38-126); Anion Gap 10 mmol/L (8-16); Aspartate Amino Transferase 203 U/L (14-36); Bilirubin,Total 1.3 mg/dL (0.2-1.3); Blood Urea Nitrogen 69 mg/dL (7-17); Calcium 7.9 mg/dL (8.4-10.2); Carbon Dioxide 27 mmol/L (22-30); Chloride 88 mmol/L (98-107); Estimated CRCL calculation 11 ml/min; Estimated Glomerular Filt Rate 11; Glucose 99 mg/dL (65-110); Lipase 223 U/L (23-300); Magnesium 2.1 mg/dL (1.6-2.3); Potassium 4.4 mmol/L (3.4-5.0); Sodium 125 mmol/L (137-145)
[2021-12-30 06:19] LABS: Total Cells Counted 100
[2021-12-30 06:20] LABS: Band Neutrophils Percent 7 % (0-6); Lymphocytes Absolute Manual 2.28 K/mm3 (1.1-4.5); Lymphocytes Percent Manual 11 % (18-44); Monocytes Absolute Manual 0.62 K/mm3 (0.1-0.90); Monocytes Percent Manual 3 % (3-9); Neutrophils Absolute Manual 17.88 K/mm3 (1.7-7.2); Neutrophils Percent Manual 79 % (46-73); Platelet Estimate Adequate (Adequate)
[2021-12-30] MEDS: metroNIDAZOLE 500 MG/ISO 100ML 500 MG/100 ML BAG 100 MG IVPB ×3 (06:27→23:29)
[2021-12-30] MEDS: LORazepam (*CRX) 0.5 MG TABLET PO ×2 (06:30→21:59)
[2021-12-30] MEDS: METAXALONE 800 MG TABLET PO ×2 (06:31→22:02)
[2021-12-30] MEDS: HYDROcodone/acetaminophen (*CRX) 5-325 MG TABLET 1 TAB PO ×2 (06:31→22:00)
[2021-12-30] MEDS: UMECLIDINIUM/VILANTEROL 62.5-25 MCG ELLIPTA 1 PUFF INHALATION (08:11)
[2021-12-30] MEDS: estradioL 1 MG TABLET PO (08:57)
[2021-12-30] MEDS: FAMOTIDINE 20 MG TABLET PO ×2 (08:57→20:02)
[2021-12-30] MEDS: BISACODYL 10 MG SUPPOSITORY RECTAL (11:08)
[2021-12-30] MEDS: SODIUM CHLORIDE 3% 240 ML 60 ML IV CONT (11:22)
--- NOTE | 2021-12-30 12:52 | PM.IMPN ---
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 Urine culture with E coli sensitive to currently Zosyn. With worsening renal failure or non improvement possibility of interstitial nephritis related to Zosyn is being sought. Discussed with Nephrology. Will change antibiotic to Levaquin and Flagyl. UTI E coli which was resistant to Levaquin. Recheck urinalysis with the similar pattern suggestive of infection versus ATN. Will start aztreonam to cover for UTI # Ascending colitis appendix was normal on recent CT scan # Severe hyponatremia 119 on admission. Continues to improve slowly. Continue to monitor slow rise planned 8-10 per day. Likely hypovolemic hyponatremia. TSH cortisol SPEP UPEP planned. And cortisol level normal at 16.7. Seem to have chronic hyponatremia ranging between 120-130 . Slowly improving BRETT CK level normal creatinine 3.8 IV normal saline nephrology consulted. Baseline creatinine 0.5 likely prerenal. Renal ultrasound with no hydronephrosis. Creatinine about the same. Renal biopsy done 12/29/21 # Metabolic acidosis on bicarb drip improving # Mild hypoglycemia # Thrombocytopenia no prior history. Platelet count of 53,000. Continues to improve slowly. Will consult pickup driver? TTP diagnosis althoughno schistocytes was seen in the peripheral smear. Revenue Audit Clerk evaluated. Workup in process. LDH is normal. Fibrinogen is high # Elevated LFT particularly Elevated alkaline phosphatase right upper quadrant ultrasound with hepatic steatosis and gallbladder hydrops. Continues to worsen. Recent right upper quadrant ultrasound was negative. Repeat ultrasound as LFT continues to worsen # COPD/emphysema # Chronic back pain # Generalized anxiety disorder # GERD # DVT prophylaxis start heparin # Code status full code Subjective Date/time seen: 12/30/21 12:52 Interval history: HPI:?this is a 66-year-old female with past medical history significant for COPD /emphysema, chronic back pain, generalized anxiety disorder. patient presents to the emergency room due to generalized weakness has had nausea and vomiting for the last 2 days unable to keep anything down heart chills, no diarrhea, no abdominal pain, has not been able to keep anything down for the last 2 days or so, denies any cough, sputum production, shortness of breath, wheezing. Preliminary workup was significant for urinalysis with numerous WBCs present, basic metabolic profile was significant for a creatinine of? 3.8, BUN 46, chloride 84, sodium 119 , lactic acid was 1.3,? alk phos was 273, right upper quadrant ultrasound was significant for hepatic steatosis and gallbladder hydrops.? A CT of abdomen and pelvis was significant for?nonspecific wall thickening of the ascending colon as can be seen with infection, inflammation, and ischemia, no other acute abdominope
[2021-12-30 13:00] LABS: Kappa\\Lambda Light Chains 0.78 (0.26-1.65); Lambda Light Chain 76.1 mg/L (5.7-26.3)
--- NOTE | 2021-12-30 13:55 | PM.PNNEP ---
Progress Note: A&P Additional Plan 1. The patient has acute kidney injury. Her baseline creatinine is normal at 0.5. Renal ultrasound is normal. Fractional excretion of sodium is low suggestive of pre renal azotemia. CPK is not elevated. The patient's creatinine stabilized the 1st time. She has multiple issues that are of concern for something intrinsic. She has a low platelet count. Possibly H U.S. or TTP? her hemoglobin is not dropping Very quickly (possibly , though speaking against this. ATN is always a possibility as well since she was sick for a few days in a row. Interstitial nephritis is a possibility. We are changing medications. I talked with the pathologist and he says there are rare schistocytes. He had to look very hard to find 1. Dr. Vivar and I talked at length again. Renal biopsy was done. The patient did well with that. Tissue will be read today. 2. The patient has hyponatremia. This is chronic. Her baseline sodium is around 130. It was however much worse on admission. Urine sodium is low. Osmolality is are pending. SPEP is pending. Urinalysis showed a specific gravity 1.015. TSH and cortisol are both normal. Chest x-ray is okay. Head CT is negative. Sodium is stable on fluid restriction but not improving. she will get 3% saline enough to get the sodium level up to 129 or so. 3. COPD. The patient is getting supportive care 4. GERD No symptoms. To start on from 07/21 5. The patient has metabolic acidosis. resolved. Will DC bicarb 6. The patient has nausea and vomiting. Evaluation per hospitalists. CT mentioned above. 7. She feels not alert mentally. This could be from the sodium or from the BUN and creatinine. The sodium should be corrected by this evening. Hopefully the creatinine will start to improve soon. Will also had a renal biopsy back to see if there is something we can do to get better more quickly. If things worsen we may need to start dialysis. Subjective Date/time seen: 12/30/21 13:55 Interval history: Patient feels about the same. no chest pain or shortness of breath. No swelling. She is eating okay. She feels that she is not thinking properly. Exam Narrative: WDWN in NAD skin no rash or subcu nodules head ncat lungs clear bilaterally cor reg no rub or gallop abd BS+ nontender and soft ext no edema. Objective Data Vital Signs Vital Signs: Vital Signs - 24 hr 12/29/21 14:23 12/29/21 14:24 12/29/21 14:00 Temperature Pulse Rate 79 82 83 Respiratory Rate 16 16 Blood Pressure 131/58 L 125/67 Pulse Oximetry 99 97 Oxygen Delivery 12/29/21 16:00 12/29/21 16:00 12/29/21 16:00 Temperature 36.8 C Pulse Rate 78 81 Respiratory Rate 16 Blood Pressure 134/65 Pulse Oximetry 96 Oxygen Delivery Room Air 12/29/21 18:00 12/29/21 19:50 12/30/21 00:00 Temperature 36.0 C L 36.0 C L Pulse Rate 110 H 91 82 Respiratory Rate 16 16 Blood Pressure 139/66 125/70 Pulse Oximetry 98 97 Oxygen Delivery 12/29/21 20:00 12/30/21 00:00 12/29/21 20:00 Temperature Pulse Rate 100 Respiratory Rate Blood Pressure Pulse Oximetry Oxygen Delivery Room Air Room Air 12/29/21 22:00 12/30/21 00:00 12/30/21 02:00 Temperature Pulse Rate 74 79 73 Respiratory Rate Blood Pressure Pulse Oximetry Oxygen Delivery 12/30/21 04:00 12/30/21 04:00 12/30/21 06:00 Temperature 36.1 C L Pulse Rate 83 78 87 Respiratory Rate 16 Blood Pressure 151/81 H Pulse Oximetry 95 Oxygen Delivery 12/30/21 04:00 12/30/21 08:00 12/30/21 08:00 Temperature 36.3 C L Pulse Rate 84 Respiratory Rate 12 Blood Pressure 126/68 Pulse Oximetry 95 Oxygen Delivery Room Air Room Air 12/30/21 08:00 12/30/21 10:00 12/30/21 12:00 Temperature Pulse Rate 94 82 86 Respiratory Rate Blood Pressure Pulse Oximetry Oxygen Delivery 0
[2021-12-30] MEDS: ONDANSETRON INJ 4 MG/2 ML VIAL IV PUSH ×2 (17:04→21:59)
[2021-12-30 17:57] LABS: Sodium 127 mmol/L (137-145)
[2021-12-30] MEDS: HEPARIN SODIUM 5,000 UNITS/ML VIAL 5000 UNITS SUB-Q (20:02)
[2021-12-30 20:44] LABS: Albumin 2.5 g/dL (3.8-4.8); Alpha 1 Globulin 0.7 g/dL (0.2-0.3); Alpha 2 Globulin 0.8 g/dL (0.5-0.9); Beta 1 Globulin 0.3 g/dL (0.4-0.6); Gamma Globulin 0.5 g/dL (0.8-1.7)
[2021-12-31] VITALS (14 sets, daily range): BP systolic 134–147; BP diastolic 53–66; PULSE 80–104; RESP 16–20; TEMP 36.4–36.7; O2SAT 94–99
[2021-12-31] MEDS: metroNIDAZOLE 500 MG/ISO 100ML 500 MG/100 ML BAG 100 MG IVPB (05:13)
[2021-12-31] MEDS: HYDROcodone/acetaminophen (*CRX) 5-325 MG TABLET 1 TAB PO ×2 (05:20→18:12)
[2021-12-31] MEDS: ONDANSETRON INJ 4 MG/2 ML VIAL IV PUSH (05:21)
[2021-12-31 07:54] LABS: Albumin Level 2.6 g/dL (3.5-5.1); Anion Gap 9 mmol/L (8-16); Blood Urea Nitrogen 60 mg/dL (7-17); Carbon Dioxide 27 mmol/L (22-30); Chloride 92 mmol/L (98-107); Estimated CRCL calculation 12 ml/min; Estimated Glomerular Filt Rate 12; Glucose 100 mg/dL (65-110); Phosphorus 5.3 mg/dL (2.5-4.5); Sodium 128 mmol/L (137-145)
[2021-12-31 07:57] LABS: Basophils Absolute Auto 0.1 K/mm3 (0.0-0.1); Basophils Percent Auto 0.2 % (0.2-1.2); Eosinophils Absolute Auto 0.1 K/mm3 (0-0.3); Eosinophils Percent Auto 0.6 % (0-4.4); Hemoglobin 9.8 g/dL (12.0-15.0); Immature Granulocyte Absolute 2.42 K/mm3 (0.00-0.031); Immature Granulocyte Percent A 10.7 % (0-0.5); Lymphocytes Percent Auto 4.4 % (18.3-44.2); Mean Corpuscular Hemoglobin 33.1 pg (26-34); Mean Corpuscular Volume 94.6 fl (80-100); Mean Platelet Volume 10.7 fl (7.4-10.4); Monocytes Absolute Auto 1.5 K/mm3 (0.1-0.6); Monocytes Percent Auto 6.7 % (2.6-8.5); Neutrophils Absolute Auto 17.4 K/mm3 (1.3-6.7); Neutrophils Percent Auto 77.4 % (45.5-73.1); Platelet Count Result 270 k/mm3 (150-375); Red Blood Count 2.96 M/mm3 (4.2-5.4); Red Cell Distribution Width 15.9 % (11.5-14.5); White Blood Count 22.5 K/mm3 (4.5-10.0)
[2021-12-31] MEDS: UMECLIDINIUM/VILANTEROL 62.5-25 MCG ELLIPTA 1 PUFF INHALATION (08:43)
[2021-12-31] MEDS: estradioL 1 MG TABLET PO (08:48)
[2021-12-31] MEDS: FAMOTIDINE 20 MG TABLET PO ×2 (08:48→21:28)
[2021-12-31] MEDS: HEPARIN SODIUM 5,000 UNITS/ML VIAL 5000 UNITS SUB-Q (08:49)
--- NOTE | 2021-12-31 11:15 | PM.PNNEP ---
Progress Note: A&P Additional Plan 1. The patient has acute kidney injury. Her baseline creatinine is normal at 0.5. Renal ultrasound is normal. Fractional excretion of sodium is low suggestive of pre renal azotemia. CPK is not elevated. The patient's creatinine Came down a bit to 3.9 renal biopsy showed ATN plus pyelonephritis. Discussed with Dr. Vivar. 2. The patient has hyponatremia. This is chronic. Her baseline sodium is around 130. It was however much worse on admission. Urine sodium is low. Osmolality is are pending. SPEP is pending. Urinalysis showed a specific gravity 1.015. TSH and cortisol are both normal. Chest x-ray is okay. Head CT is negative. she received 3% saline. Her sodium level was 128 this morning. Give her a little bit more water and see how she does. 3. COPD. The patient is getting supportive care 4. GERD No symptoms. To start on from 07/21 5. The patient has metabolic acidosis. resolved. Will DC bicarb 6. The patient has nausea and vomiting. Evaluation per hospitalists. CT mentioned above. Subjective Date/time seen: 12/31/21 11:15 Interval history: Patient feels about the same. sitting up in a chair. Breathing is okay. Very thirsty. Exam Narrative: WDWN in NAD skin no rash or subcu nodules head ncat lungs clear bilaterally cor reg no rub or gallop abd BS+ nontender and soft ext no edema. Objective Data Vital Signs Vital Signs: Vital Signs - 24 hr 12/30/21 12:00 12/30/21 12:00 12/30/21 12:00 Temperature 36.6 C Pulse Rate 86 83 Respiratory Rate 16 Blood Pressure 130/59 L Pulse Oximetry 99 Oxygen Delivery Room Air 12/30/21 16:00 12/30/21 14:00 12/30/21 16:00 Temperature Pulse Rate 86 86 Respiratory Rate Blood Pressure Pulse Oximetry Oxygen Delivery Room Air 12/30/21 16:00 12/30/21 18:00 12/30/21 20:00 Temperature 36.5 C 36.4 C L Pulse Rate 83 96 84 Respiratory Rate 16 18 Blood Pressure 151/65 H 153/70 H Pulse Oximetry 98 98 Oxygen Delivery 12/30/21 23:23 12/30/21 20:00 12/30/21 22:00 Temperature 36.3 C L Pulse Rate 88 87 89 Respiratory Rate 18 Blood Pressure 146/65 H Pulse Oximetry 98 Oxygen Delivery 12/31/21 00:00 12/30/21 20:00 12/31/21 00:00 Temperature Pulse Rate 84 Respiratory Rate Blood Pressure Pulse Oximetry Oxygen Delivery Room Air Room Air 12/31/21 02:00 12/31/21 04:00 12/31/21 04:00 Temperature Pulse Rate 84 84 Respiratory Rate Blood Pressure Pulse Oximetry Oxygen Delivery Room Air 12/31/21 04:00 12/31/21 06:00 12/31/21 07:52 Temperature 36.6 C 36.6 C Pulse Rate 88 84 80 Respiratory Rate 16 16 Blood Pressure 147/65 H 144/66 H Pulse Oximetry 97 99 Oxygen Delivery 12/31/21 08:00 12/31/21 10:00 12/31/21 08:00 Temperature Pulse Rate 80 97 Respiratory Rate Blood Pressure Pulse Oximetry Oxygen Delivery Room Air Intake/Output Intake/Output: Intake & Output 12/28/21 12/29/21 12/30/21 12/31/21 23:59 23:59 23:59 23:59 Intake Total 2080 2080 1320 390 Output Total 250 1330 1450 550 Balance 1830 750 -130 -160 Meds/Results Medications: Active Medications Generic Name Dose Route Start Last Admin Trade Name Freq PRN Reason Stop Dose Admin Hydrocodone Bitart/Acetaminophen 1 tab 12/27/21 00:59 12/31/21 05:20 Hydrocodone/Acetaminophen (*Crx) 5-325 Mg Tablet PO 1 tab TID PRN Administration Pain Rated 4-6 Albuterol 2 puff 12/27/21 00:59 Albuterol Sulfate (*Sp) Aerosol 1 Puff INHALATION Q4H PRN shortness of breath or wheezing Albuterol 2.5 mg 12/27/21 06:28 Albuterol Sulfate Neb 2.5 Mg/0.5 Ml Inh INHALATION Q6HRT PRN shortness of breath Atorvastatin Calcium 20 mg 12/27/21 01:20 12/28/21 21:41 Atorvastatin 20 Mg Tablet PO 20 mg HS NAHED Administration Benzonatate 200 mg
--- NOTE | 2021-12-31 12:42 | PM.IMPN ---
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 Urine culture with E coli sensitive to currently Zosyn. With worsening renal failure or non improvement possibility of interstitial nephritis related to Zosyn is being sought. Discussed with Nephrology. Will change antibiotic to Levaquin and Flagyl. UTI E coli which was resistant to Levaquin. Recheck urinalysis with the similar pattern suggestive of infection versus ATN. Renal biopsy also positive for ATN and pyelonephritis. Antibiotics switched to meropenem pancultured follow culture. WBC count continue to increase. Will continue to monitor # Ascending colitis appendix was normal on recent CT scan. Repeat CT with resolution of these findings. Will stop Levaquin and Flagyl for this colitis # Severe hyponatremia 119 on admission. Continues to improve slowly. Continue to monitor slow rise planned 8-10 per day. Likely hypovolemic hyponatremia. TSH cortisol SPEP UPEP planned. And cortisol level normal at 16.7. Seem to have chronic hyponatremia ranging between 120-130 . Slowly improving. Treated with 3% saline 12/30/2021 # BRETT CK level normal creatinine 3.8 IV normal saline nephrology consulted. Baseline creatinine 0.5 likely prerenal. Renal ultrasound with no hydronephrosis. Creatinine about the same. Renal biopsy done 12/29/21. Findings of ATN/pyelonephritis in the renal biopsy. Antibiotic therapy as delineated above. Creatinine slightly better today with improved urinary output # Metabolic acidosis on bicarb drip improving # Mild hypoglycemia # Thrombocytopenia no prior history. Platelet count of 53,000. Continues to improve slowly. Will consult analyst business analysis? TTP diagnosis althoughno schistocytes was seen in the peripheral smear. Room Inspector evaluated. Workup in process. LDH is normal. Fibrinogen is high. Thrombocytopenia has resolved now # Elevated LFT particularly Elevated alkaline phosphatase right upper quadrant ultrasound with hepatic steatosis and gallbladder hydrops. Continues to worsen. Recent right upper quadrant ultrasound was negative. Repeat ultrasound as LFT continues to worsen with no acute findings. Repeat CT chest abdomen pelvis reviewed. # COPD/emphysema # Chronic back pain # Generalized anxiety disorder # GERD # DVT prophylaxis heparin subQ hold now due to dark stool # dark stool will send for FOBT. H&H is slightly lower but stable will continue to monitor now. Hold heparin for now # Code status full code Subjective Date/time seen: 12/31/21 12:42 Interval history: HPI:?this is a 66-year-old female with past medical history significant for COPD /emphysema, chronic back pain, generalized anxiety disorder. patient presents to the emergency room due to generalized weakness has had nausea and vomiting for the last 2 days unable to keep anything down
[2021-12-31 13:48] LABS: IFOB Positive Control Positive; Immunochemical Fecal Occult Bl Negative (N)
[2021-12-31] MEDS: LORazepam (*CRX) 0.5 MG TABLET PO (18:13)
[2021-12-31] MEDS: METAXALONE 800 MG TABLET PO (18:16)
[2022-01-01] VITALS (15 sets, daily range): BP systolic 122–142; BP diastolic 48–64; PULSE 78–103; RESP 12–18; TEMP 36.3–36.8; O2SAT 93–100
[2022-01-01] MEDS: METAXALONE 800 MG TABLET PO ×4 (02:39→22:10)
[2022-01-01] MEDS: LORazepam (*CRX) 0.5 MG TABLET PO ×4 (02:40→22:08)
[2022-01-01] MEDS: HYDROcodone/acetaminophen (*CRX) 5-325 MG TABLET 1 TAB PO ×4 (02:40→22:09)
[2022-01-01 04:50] LABS: Hematocrit 25.7 % (37.0-47.0); Hemoglobin 9.1 g/dL (12.0-15.0); Mean Corpuscular HGB Conc 35.4 g/dl (32-36); Mean Corpuscular Hemoglobin 33.3 pg (26-34); Mean Corpuscular Volume 94.1 fl (80-100); Mean Platelet Volume 10.2 fl (7.4-10.4); Platelet Count Result 302 k/mm3 (150-375); Red Blood Count 2.73 M/mm3 (4.2-5.4); White Blood Count 20.6 K/mm3 (4.5-10.0)
[2022-01-01 05:24] LABS: Alanine Aminotransferase 37 U/L (6-35); Albumin Level 2.5 g/dL (3.5-5.1); Alkaline Phosphatase 285 U/L (38-126); Anion Gap 11 mmol/L (8-16); Aspartate Amino Transferase 46 U/L (14-36); Band Neutrophils Percent 4 % (0-6); Bilirubin,Total 0.7 mg/dL (0.2-1.3); Blood Urea Nitrogen 52 mg/dL (7-17); Calcium 8.2 mg/dL (8.4-10.2); Carbon Dioxide 24 mmol/L (22-30); Chloride 90 mmol/L (98-107); Eosinophils Percent Manual 1 % (0-4); Estimated CRCL calculation 15 ml/min; Estimated Glomerular Filt Rate 15; Glucose 101 mg/dL (65-110); Lymphocytes Absolute Manual 2.26 K/mm3 (1.1-4.5); Magnesium 1.6 mg/dL (1.6-2.3); Monocytes Absolute Manual 1.44 K/mm3 (0.1-0.90); Monocytes Percent Manual 7 % (3-9); Neutrophils Absolute Manual 16.68 K/mm3 (1.7-7.2); Neutrophils Percent Manual 77 % (46-73); Phosphorus 4.7 mg/dL (2.5-4.5); Potassium 3.7 mmol/L (3.4-5.0); Sodium 125 mmol/L (137-145); Total Cells Counted 100
[2022-01-01 05:25] LABS: Anisocytosis 1+ (NORMAL)
[2022-01-01] MEDS: LORATADINE 10 MG TABLET PO (08:27)
[2022-01-01] MEDS: FAMOTIDINE 20 MG TABLET PO ×2 (08:27→20:58)
[2022-01-01] MEDS: estradioL 1 MG TABLET PO (08:28)
[2022-01-01 08:33] LABS: Platelet Estimate Adequate (Adequate)
[2022-01-01] MEDS: UMECLIDINIUM/VILANTEROL 62.5-25 MCG ELLIPTA 1 PUFF INHALATION (09:27)
--- NOTE | 2022-01-01 13:00 | PM.IMPN ---
Progress Note: A&P Assessment and Plan (1) Acute kidney failure: Qualifiers: Acute renal failure type: unspecified Qualified Code(s): N17.9 - Acute kidney failure, unspecified Code(s): N17.9 - Acute kidney failure, unspecified Status: Acute (2) Chronic hyponatremia: Code(s): E87.1 - Hypo-osmolality and hyponatremia Status: Acute (3) Urinary tract infection: Qualifiers: Hematuria presence: with hematuria Urinary tract infection type: acute cystitis Qualified Code(s): N30.01 - Acute cystitis with hematuria Code(s): N39.0 - Urinary tract infection, site not specified Status: Acute (4) COPD with emphysema: Code(s): J43.9 - Emphysema, unspecified Status: Acute (5) Chronic obstructive pulmonary disease: Qualifiers: COPD type: unspecified COPD Qualified Code(s): J44.9 - Chronic obstructive pulmonary disease, unspecified Code(s): J44.9 - Chronic obstructive pulmonary disease, unspecified Status: Acute Plan # Generalized weakness/nausea vomiting/altered mental statusPT OT to see # UTI started on Rocephin follow urine culture with colitis will change it to Zosyn . Urine culture with E coli sensitive to currently Zosyn. With worsening renal failure or non improvement possibility of interstitial nephritis related to Zosyn is being sought. Discussed with Nephrology. Will change antibiotic to Levaquin and Flagyl. UTI E coli which was resistant to Levaquin. Recheck urinalysis with the similar pattern suggestive of infection versus ATN. Renal biopsy also positive for ATN and pyelonephritis. Antibiotics switched to meropenem pancultured follow culture. WBC count improved today. Continue meropenem as ordered. # Ascending colitis appendix was normal on recent CT scan. Repeat CT with resolution of these findings. Now stopped Levaquin and Flagyl for this colitis # Severe hyponatremia 119 on admission. Continues to improve slowly. Continue to monitor slow rise planned 8-10 per day. Likely hypovolemic hyponatremia. TSH cortisol SPEP UPEP planned. And cortisol level normal at 16.7. Seem to have chronic hyponatremia ranging between 120-130 . Slowly improving. Treated with 3% saline 12/30/2021 Fluid restriction was released with sodium level with slight trend downward today. Will add salt tablets # BRETT CK level normal creatinine 3.8 IV normal saline nephrology consulted. Baseline creatinine 0.5 likely prerenal. Renal ultrasound with no hydronephrosis. Creatinine about the same. Renal biopsy done 12/29/21. Findings of ATN/pyelonephritis in the renal biopsy. Antibiotic therapy as delineated above. Creatinine Continues to improve. Down to 3.1 today from 4.2 peak # Metabolic acidosis on bicarb drip improving # Mild hypoglycemia # Thrombocytopenia no prior history. Platelet count of 53,000. Continues to improve slowly. Will consult campaign management specialist? TTP diagnosis althoughno schistocytes was seen in the peripheral smear. Treating Inspector evaluated. Workup in process. LDH is normal. Fibrinogen is high. Thrombocytopenia has resolved now # Elevated LFT particularly Elevated alkaline phosphatase right upper quadrant ultrasound with hepatic steatosis and gallbladder hydrops. Continues to worsen. Recent right upper quadrant ultrasound was negative. Repeat ultrasound as LFT continues to worsen with no acute findings. Repeat CT chest abdomen pelvis reviewed. # COPD/emphysema # Chronic back pain # Generalized anxiety disorder # GERD # DVT prophylaxis heparin subQ hold now due to dark stool . H&H continues to decline with no active signs of bleeding. Will continue to monitor # dark stool FOBT came back negative. H&H is slightly lower but stable will continue to monitor now. Hold heparin for now Recheck labs again tomorrow and resume heparin if stable # Code status full code Subjective Date/time seen: 01/01/22 13:00 Diana
[2022-01-01] MEDS: SODIUM CHLORIDE 500 MG TABLET PO (16:38)
--- NOTE | 2022-01-01 16:47 | PM.PNNEP ---
Progress Note: A&P Additional Plan 1. The patient has acute kidney injury. Her baseline creatinine is normal at 0.5. Renal ultrasound is normal. Fractional excretion of sodium is low suggestive of pre renal azotemia. CPK is not elevated. The patient's creatinine Came down a bit to 3.1 renal biopsy showed ATN plus pyelonephritis. Discussed with Dr. Vivar. she continues on antibiotics. 2. The patient has hyponatremia. This is chronic. Her baseline sodium is around 130. It was however much worse on admission. Urine sodium is low. Osmolality is are pending. SPEP is pending. Urinalysis showed a specific gravity 1.015. TSH and cortisol are both normal. Chest x-ray is okay. Head CT is negative. she received 3% saline. Her sodium level was 125 This morning. She is on 1300cc fluid restriction. Will try Lasix plus salt tablets. Long discussion with the patient and her . 3. COPD. The patient is getting supportive care 4. GERD No symptoms. To start on from 07/21 5. The patient has metabolic acidosis. resolved. Off bicarbonate. 6. Nausea and vomiting is resolved. Subjective Date/time seen: 01/01/22 16:47 Interval history: Patient feels about the same. looks better and feels stronger. is in the room. Exam Narrative: WDWN in NAD skin no rash or subcu nodules head ncat lungs clear bilaterally cor reg no rub or gallop abd BS+ nontender and soft ext no edema or cyanosis. Objective Data Vital Signs Vital Signs: Vital Signs - 24 hr 12/31/21 18:00 12/31/21 20:00 12/31/21 20:00 Temperature 36.4 C L Pulse Rate 94 85 85 Respiratory Rate 20 Blood Pressure 137/60 Pulse Oximetry 95 Oxygen Delivery 12/31/21 20:00 12/31/21 22:00 12/31/21 23:17 Temperature 36.4 C Pulse Rate 84 83 Respiratory Rate 20 Blood Pressure 139/66 Pulse Oximetry 94 Oxygen Delivery Room Air 01/01/22 00:00 01/01/22 00:00 01/01/22 02:00 Temperature Pulse Rate 83 103 H Respiratory Rate Blood Pressure Pulse Oximetry Oxygen Delivery Room Air 01/01/22 04:00 01/01/22 04:00 01/01/22 04:00 Temperature 36.4 C Pulse Rate 82 82 Respiratory Rate 16 Blood Pressure 126/51 L Pulse Oximetry 100 Oxygen Delivery Room Air 01/01/22 06:00 01/01/22 07:48 01/01/22 08:32 Temperature 36.3 C L Pulse Rate 78 78 81 Respiratory Rate 12 Blood Pressure 142/62 H Pulse Oximetry 100 Oxygen Delivery 01/01/22 12:00 Temperature 36.3 C L Pulse Rate 98 Respiratory Rate 16 Blood Pressure 126/64 Pulse Oximetry 93 Oxygen Delivery Intake/Output Intake/Output: Intake & Output 12/29/21 12/30/21 12/31/21 01/01/22 23:59 23:59 23:59 23:59 Intake Total 2080 1320 1290 530 Output Total 1330 1450 1250 700 Balance 750 -130 40 -170 Meds/Results Medications: Active Medications Generic Name Dose Route Start Last Admin Trade Name Freq PRN Reason Stop Dose Admin Hydrocodone Bitart/Acetaminophen 1 tab 12/27/21 00:59 01/01/22 15:01 Hydrocodone/Acetaminophen (*Crx) 5-325 Mg Tablet PO 1 tab TID PRN Administration Pain Rated 4-6 Albuterol 2 puff 12/27/21 00:59 Albuterol Sulfate (*Sp) Aerosol 1 Puff INHALATION Q4H PRN shortness of breath or wheezing Albuterol 2.5 mg 12/27/21 06:28 Albuterol Sulfate Neb 2.5 Mg/0.5 Ml Inh INHALATION Q6HRT PRN shortness of breath Atorvastatin Calcium 20 mg 12/27/21 01:20 12/28/21 21:41 Atorvastatin 20 Mg Tablet PO 20 mg HS NAHED Administration Benzonatate 200 mg 12/27/21 01:12 Benzonatate 100 Mg Capsule PO TID PRN Cough Bisacodyl 10 mg 12/30/21 10:27 Bisacodyl 10 Mg Suppository RECTAL QAM PRN Constipation Estradiol 1 mg 12/27/21 09:00 01/01/22 08:28 Estradiol 1 Mg Tablet PO 1 mg DAILY NAHED Administration Famotidine 20 mg 12/29/21 21:00 01/01/22 08:27 Famotidine 20
[2022-01-01] MEDS: FUROSEMIDE 20 MG TABLET PO (17:36)
[2022-01-01] MEDS: SODIUM CHLORIDE 1 GM TABLET PO (17:42)
[2022-01-02] VITALS (14 sets, daily range): BP systolic 112–142; BP diastolic 45–62; PULSE 84–108; RESP 12–18; TEMP 36.5–37.3; O2SAT 97–100
[2022-01-02 05:14] LABS: Hematocrit 28.6 % (37.0-47.0); Hemoglobin 9.8 g/dL (12.0-15.0); Mean Corpuscular HGB Conc 34.3 g/dl (32-36); Mean Corpuscular Hemoglobin 32.7 pg (26-34); Mean Corpuscular Volume 95.3 fl (80-100); Mean Platelet Volume 10.1 fl (7.4-10.4); Platelet Count Result 447 k/mm3 (150-375); Red Cell Distribution Width 15.9 % (11.5-14.5); White Blood Count 19.2 K/mm3 (4.5-10.0)
[2022-01-02 05:27] LABS: Alanine Aminotransferase 28 U/L (6-35); Albumin Level 2.9 g/dL (3.5-5.1); Alkaline Phosphatase 261 U/L (38-126); Anion Gap 9 mmol/L (8-16); Aspartate Amino Transferase 37 U/L (14-36); Bilirubin,Total 0.7 mg/dL (0.2-1.3); Blood Urea Nitrogen 40 mg/dL (7-17); Calcium 8.3 mg/dL (8.4-10.2); Carbon Dioxide 27 mmol/L (22-30); Chloride 92 mmol/L (98-107); Estimated CRCL calculation 20 ml/min; Estimated Glomerular Filt Rate 20; Glucose 102 mg/dL (65-110); Magnesium 1.3 mg/dL (1.6-2.3); Phosphorus 4.3 mg/dL (2.5-4.5); Potassium 3.8 mmol/L (3.4-5.0); Sodium 128 mmol/L (137-145)
[2022-01-02 05:42] LABS: Band Neutrophils Percent 6 % (0-6); Eosinophils Absolute Manual 0.19 K/mm3 (0.02-0.5); Eosinophils Percent Manual 1 % (0-4); Lymphocytes Absolute Manual 2.49 K/mm3 (1.1-4.5); Monocytes Absolute Manual 0.76 K/mm3 (0.1-0.90); Monocytes Percent Manual 4 % (3-9); Neutrophils Absolute Manual 15.74 K/mm3 (1.7-7.2); Neutrophils Percent Manual 76 % (46-73); Platelet Estimate Increased (Adequate); Total Cells Counted 100
[2022-01-02 05:43] LABS: Anisocytosis 1+ (NORMAL)
[2022-01-02] MEDS: MAGNESIUM SULF 1 GM/D5W 100 ML 1 GM/100 ML BAG IVPB (08:18)
[2022-01-02] MEDS: HYDROcodone/acetaminophen (*CRX) 5-325 MG TABLET 1 TAB PO ×3 (08:19→23:40)
[2022-01-02] MEDS: LORazepam (*CRX) 0.5 MG TABLET PO ×3 (08:19→23:40)
[2022-01-02] MEDS: estradioL 1 MG TABLET PO (08:20)
[2022-01-02] MEDS: FAMOTIDINE 20 MG TABLET PO ×2 (08:20→20:38)
[2022-01-02] MEDS: FUROSEMIDE 20 MG TABLET PO ×2 (08:20→18:05)
[2022-01-02] MEDS: SODIUM CHLORIDE 1 GM TABLET PO ×2 (08:20→18:06)
[2022-01-02] MEDS: METAXALONE 800 MG TABLET PO ×3 (08:35→23:40)
[2022-01-02] MEDS: UMECLIDINIUM/VILANTEROL 62.5-25 MCG ELLIPTA 1 PUFF INHALATION (08:41)
--- NOTE | 2022-01-02 11:30 | PM.PNNEP ---
Progress Note: A&P Additional Plan 1. The patient has acute kidney injury. Her baseline creatinine is normal at 0.5. Renal ultrasound is normal. Fractional excretion of sodium is low suggestive of pre renal azotemia. CPK is not elevated. The patient's creatinine came down again to 2.4. renal biopsy showed ATN plus pyelonephritis. Discussed with Dr. Vivar. she continues on antibiotics. She has some swelling. She is on salt tablets plus diuretics. She made a lot of urine overnight. 2. The patient has hyponatremia. This is chronic. Her baseline sodium is around 130. Today it is 128. Urine sodium is low. Osmolality is are pending. SPEP is pending. Urinalysis showed a specific gravity 1.015. TSH and cortisol are both normal. Chest x-ray is okay. Head CT is negative. Long discussion with the patient . Discussed with Dr. Celis. 3. COPD. The patient is getting supportive care 4. GERD No symptoms. On famotidine. 5. The patient has metabolic acidosis. resolved. Off bicarbonate. 6. Nausea and vomiting is resolved. Subjective Date/time seen: 01/02/22 11:30 Interval history: Patient feels about the same. She gets a little short of breath when she walks to the bathroom. Exam Narrative: WDWN in NAD skin no rash or subcu nodules head ncat lungs clear bilaterally cor reg no rub or gallop abd BS+ nontender and soft ext 1+ bilateral edema but no cyanosis Objective Data Vital Signs Vital Signs: Vital Signs - 24 hr 01/01/22 12:00 01/01/22 12:45 01/01/22 14:00 Temperature 36.3 C L Pulse Rate 98 92 88 Respiratory Rate 16 Blood Pressure 126/64 Pulse Oximetry 93 01/01/22 16:30 01/01/22 16:00 01/01/22 18:00 Temperature 36.8 C Pulse Rate 86 83 94 Respiratory Rate 12 Blood Pressure 136/48 L Pulse Oximetry 99 01/01/22 20:00 01/01/22 20:00 01/01/22 22:00 Temperature 36.7 C Pulse Rate 90 89 92 Respiratory Rate 16 Blood Pressure 132/55 L Pulse Oximetry 100 01/01/22 23:36 01/02/22 00:00 01/02/22 02:00 Temperature 36.3 C L Pulse Rate 98 105 H 88 Respiratory Rate 18 Blood Pressure 122/53 L Pulse Oximetry 97 01/02/22 04:00 01/02/22 04:00 01/02/22 06:00 Temperature 36.9 C Pulse Rate 89 89 90 Respiratory Rate 14 Blood Pressure 138/62 Pulse Oximetry 98 01/02/22 08:00 01/02/22 08:39 Temperature 37.3 C Pulse Rate 94 95 Respiratory Rate 16 Blood Pressure 142/61 H Pulse Oximetry 98 Intake/Output Intake/Output: Intake & Output 12/30/21 12/31/21 01/01/22 01/02/22 23:59 23:59 23:59 23:59 Intake Total 1320 1290 820 410 Output Total 1450 1250 1500 2375 Balance -130 29 -206 -3376 Meds/Results Medications: Active Medications Generic Name Dose Route Start Last Admin Trade Name Freq PRN Reason Stop Dose Admin Hydrocodone Bitart/Acetaminophen 1 tab 12/27/21 00:59 01/02/22 08:19 Hydrocodone/Acetaminophen (*Crx) 5-325 Mg Tablet PO 1 tab TID PRN Administration Pain Rated 4-6 Albuterol 2 puff 12/27/21 00:59 Albuterol Sulfate (*Sp) Aerosol 1 Puff INHALATION Q4H PRN shortness of breath or wheezing Albuterol 2.5 mg 12/27/21 06:28 Albuterol Sulfate Neb 2.5 Mg/0.5 Ml Inh INHALATION Q6HRT PRN shortness of breath Atorvastatin Calcium 20 mg 12/27/21 01:20 12/28/21 21:41 Atorvastatin 20 Mg Tablet PO 20 mg HS NAHED Administration Benzonatate 200 mg 12/27/21 01:12 Benzonatate 100 Mg Capsule PO TID PRN Cough Bisacodyl 10 mg 12/30/21 10:27 Bisacodyl 10 Mg Suppository RECTAL QAM PRN Constipation Estradiol 1 mg 12/27/21 09:00 01/02/22 08:20 Estradiol 1 Mg Tablet PO 1 mg DAILY NAHED Administration Famotidine 20 mg 12/29/21 21:00 01/02/22 08:20 Famotidine 20 Mg Tablet PO 20 mg Q12HR NAHED Administration Furosemide 20 mg 01/01/22 17:00 01/02/22 08:20 Furosemi
[2022-01-02 13:42] LABS: ADAMTS-13 Activity 0.87 IU/mL (0.68-1.63)
[2022-01-02] MEDS: HEPARIN SODIUM 5,000 UNITS/ML VIAL 5000 UNITS SUB-Q (20:38)
--- NOTE | 2022-01-02 21:58 | PC.NURSE ---
This patient, Rosemarie Chung, was transferred to [ [id number]] on 01/02/22 at 2159. Personal belongings sent with patient. Report given to [ Dori taylor]. Appropriate documentation sent with patient.
[2022-01-03 05:46] VITALS: BP 153/67; PULSE 93; RESP 18; TEMP 36.6; O2SAT 100
[2022-01-03 06:20] LABS: Hematocrit 28.1 % (37.0-47.0); Hemoglobin 9.5 g/dL (12.0-15.0); Mean Corpuscular HGB Conc 33.8 g/dl (32-36); Mean Corpuscular Hemoglobin 32.9 pg (26-34); Mean Corpuscular Volume 97.2 fl (80-100); Mean Platelet Volume 10.1 fl (7.4-10.4); Platelet Count Result 502 k/mm3 (150-375); Red Blood Count 2.89 M/mm3 (4.2-5.4); Red Cell Distribution Width 16.2 % (11.5-14.5); White Blood Count 17.2 K/mm3 (4.5-10.0)
[2022-01-03 06:42] LABS: Alanine Aminotransferase 21 U/L (6-35); Alkaline Phosphatase 234 U/L (38-126); Anion Gap 10 mmol/L (8-16); Aspartate Amino Transferase 39 U/L (14-36); Bilirubin,Total 0.6 mg/dL (0.2-1.3); Blood Urea Nitrogen 32 mg/dL (7-17); Calcium 8.6 mg/dL (8.4-10.2); Carbon Dioxide 29 mmol/L (22-30); Chloride 92 mmol/L (98-107); Estimated CRCL calculation 26 ml/min; Estimated Glomerular Filt Rate 28; Glucose 95 mg/dL (65-110); Magnesium 1.3 mg/dL (1.6-2.3); Phosphorus 4.7 mg/dL (2.5-4.5); Potassium 3.6 mmol/L (3.4-5.0); Sodium 131 mmol/L (137-145)
[2022-01-03 07:03] LABS: Eosinophils Absolute Manual 0.17 K/mm3 (0.02-0.5); Eosinophils Percent Manual 1 % (0-4); Hypochromasia 1+ (NORMAL); Lymphocytes Absolute Manual 0.86 K/mm3 (1.1-4.5); Monocytes Absolute Manual 0.68 K/mm3 (0.1-0.90); Monocytes Percent Manual 4 % (3-9); Neutrophils Percent Manual 90 % (46-73); Platelet Estimate Adequate (Adequate); Total Cells Counted 100
[2022-01-03 07:04] LABS: Anisocytosis 2+ (NORMAL)
[2022-01-03] MEDS: HEPARIN SODIUM 5,000 UNITS/ML VIAL 5000 UNITS SUB-Q ×2 (08:12→21:02)
[2022-01-03] MEDS: HYDROcodone/acetaminophen (*CRX) 5-325 MG TABLET 1 TAB PO ×2 (08:13→21:11)
[2022-01-03] MEDS: CHOLECALCIFEROL 1,000 UNITS TABLET 2000 UNITS PO (08:13)
[2022-01-03] MEDS: FUROSEMIDE 20 MG TABLET PO ×2 (08:13→18:05)
[2022-01-03] MEDS: estradioL 1 MG TABLET PO (08:13)
[2022-01-03] MEDS: VITAMIN E 400 UNIT CAPSULE PO (08:13)
[2022-01-03] MEDS: FAMOTIDINE 20 MG TABLET PO ×2 (08:13→21:02)
[2022-01-03] MEDS: LORazepam (*CRX) 0.5 MG TABLET PO ×2 (08:13→21:14)
[2022-01-03] MEDS: METAXALONE 800 MG TABLET PO ×2 (08:13→21:13)
[2022-01-03] MEDS: SODIUM CHLORIDE 1 GM TABLET PO ×2 (08:13→18:05)
[2022-01-03] MEDS: ASCORBIC ACID 500 MG TABLET 1000 MG PO (08:13)
--- NOTE | 2022-01-03 08:55 | PCPTNOTE ---
Attempted to see patient for PT at this time, however patient was eating breakfast.
[2022-01-03 09:25] VITALS: O2SAT 98
[2022-01-03] MEDS: UMECLIDINIUM/VILANTEROL 62.5-25 MCG ELLIPTA 1 PUFF INHALATION ×2 (09:26)
--- NOTE | 2022-01-03 10:53 | PCNFU ---
Nutrition Follow-Up Complete: Inadequate energy intake related to reduced appetite as evidenced by pt report Goal:PO intake 75% of meals, plus Ensure compact Pt current nutrition is heart healthy, Ensure compact BID. Nutrition recommendation: continue with current plan of care. Last recorded weight is 64.9 kg - up from 59.9kg on admission Bowel Motility: +BM 8/ Labs Reviewed: Hgb:9.5, HCT:28.1, Alb:3.0, GFR:28, BUN:32, Cr:1.8 Meds Noted: lipitor Skin: WNL Additional Notes: Pt continues on a heart healthy diet. Intake is 100% most all meals. Ensure compact BID in place for an additional 220kcals, 9g protein per shake. Agree with diet order. Monitor intake, wt, labs. Follow up in 7 days.
[2022-01-03 14:54] VITALS: BP 127/42; PULSE 83; RESP 16; TEMP 37; O2SAT 100
--- NOTE | 2022-01-03 15:15 | PC.NURSE ---
Called Dr. Schultz at 1515 to determine the plan of care now that sodium levels have resolved.
--- NOTE | 2022-01-03 18:55 | PM.PNNEP ---
Progress Note: A&P Additional Plan 1. The patient has acute kidney injury. Her baseline creatinine is normal at 0.5. Renal ultrasound is normal. Fractional excretion of sodium is low suggestive of pre renal azotemia. CPK is not elevated. The patient's creatinine came down again to 1.8. renal biopsy showed ATN plus pyelonephritis. Discussed with Dr. Vivar. she continues on antibiotics. She has some swelling. She is on salt tablets plus diuretics. She made a lot of urine overnight. 2. The patient has hyponatremia. This is chronic. Her baseline sodium is around 130. Today it is 131. Urine sodium is low. Osmolality is are pending. SPEP is pending. Urinalysis showed a specific gravity 1.015. TSH and cortisol are both normal. Chest x-ray is okay. Head CT is negative. She is on fluid restriction of 1000. Increased to 1400. She is on Lasix 20 mg b.i.d. and salt tablets 1000 b.i.d.. Will change Lasix to40mg once a day and salt tablets once a day. 3. COPD. The patient is getting supportive care 4. GERD No symptoms. On famotidine. 5. The patient has metabolic acidosis. resolved. Off bicarbonate. 6. Nausea and vomiting is resolved. Subjective Date/time seen: 01/03/22 18:55 Interval history: Patient feels about the same. and daughter in the room. Exam Narrative: WDWN in NAD skin no rash or subcu nodules head ncat lungs clear to auscultation cor reg no rub or gallop abd BS+ nontender and soft ext 1+ bilateral edema Objective Data Vital Signs Vital Signs: Vital Signs - 24 hr 01/02/22 20:00 01/02/22 20:00 01/02/22 22:00 Temperature 36.5 C 36.7 C Pulse Rate 84 86 87 Respiratory Rate 12 16 18 Blood Pressure 115/45 L 131/59 L Pulse Oximetry 100 100 100 Oxygen Delivery Room Air 01/03/22 05:46 01/03/22 09:25 01/03/22 08:00 Temperature 36.6 C Pulse Rate 93 Respiratory Rate 18 Blood Pressure 153/67 H Pulse Oximetry 100 98 Oxygen Delivery Room Air Room Air 01/03/22 14:54 Temperature 37.0 C Pulse Rate 83 Respiratory Rate 16 Blood Pressure 127/42 L Pulse Oximetry 100 Oxygen Delivery Intake/Output Intake/Output: Intake & Output 12/31/21 01/01/22 01/02/22 01/03/22 23:59 23:59 23:59 23:59 Intake Total 1279 522 2119 820 Output Total 1250 1500 4275 2250 Balance 74 -231 -0553 -3547 Meds/Results Medications: Active Medications Generic Name Dose Route Start Last Admin Trade Name Freq PRN Reason Stop Dose Admin Hydrocodone Bitart/Acetaminophen 1 tab 12/27/21 00:59 01/03/22 08:13 Hydrocodone/Acetaminophen (*Crx) 5-325 Mg Tablet PO 1 tab TID PRN Administration Pain Rated 4-6 Albuterol 2 puff 12/27/21 00:59 Albuterol Sulfate (*Sp) Aerosol 1 Puff INHALATION Q4H PRN shortness of breath or wheezing Albuterol 2.5 mg 12/27/21 06:28 Albuterol Sulfate Neb 2.5 Mg/0.5 Ml Inh INHALATION Q6HRT PRN shortness of breath Ascorbic Acid 1,000 mg 01/03/22 09:00 01/03/22 08:13 Ascorbic Acid 500 Mg Tablet PO 1,000 mg DAILY NAHED Administration Atorvastatin Calcium 20 mg 12/27/21 01:20 12/28/21 21:41 Atorvastatin 20 Mg Tablet PO 20 mg HS NAHED Administration Benzonatate 200 mg 12/27/21 01:12 Benzonatate 100 Mg Capsule PO TID PRN Cough Bisacodyl 10 mg 12/30/21 10:27 Bisacodyl 10 Mg Suppository RECTAL QAM PRN Constipation Estradiol 1 mg 12/27/21 09:00 01/03/22 08:13 Estradiol 1 Mg Tablet PO 1 mg DAILY NAHED Administration Famotidine 20 mg 12/29/21 21:00 01/03/22 08:13 Famotidine 20 Mg Tablet PO 20 mg Q12HR NAHED Administration Furosemide 20 mg 01/01/22 17:00 01/03/22 18:05 Furosemide 20 Mg Tablet PO 20 mg BID NAHED Administration Heparin Sodium (Porcine) 5,000 units 12/30/21 21:00 01/03/22 08:12 Heparin Sodium 5,000 Units/Ml Vial SUB-Q 5,000 units Q12HR NAHED Administ
[2022-01-04] VITALS: BP 128/76; PULSE 80; RESP 16; TEMP 37; O2SAT 97
[2022-01-04 06:44] LABS: Albumin Level 2.6 g/dL (3.5-5.1); Anion Gap 6 mmol/L (8-16); Blood Urea Nitrogen 25 mg/dL (7-17); Calcium 8.6 mg/dL (8.4-10.2); Carbon Dioxide 30 mmol/L (22-30); Chloride 91 mmol/L (98-107); Estimated CRCL calculation 33 ml/min; Estimated Glomerular Filt Rate 38; Glucose 95 mg/dL (65-110); Phosphorus 5.1 mg/dL (2.5-4.5); Potassium 2.9 mmol/L (3.4-5.0); Sodium 127 mmol/L (137-145)
[2022-01-04 08:00] VITALS: BP 145/62; PULSE 95; RESP 18; TEMP 36.9; O2SAT 96
[2022-01-04] MEDS: UMECLIDINIUM/VILANTEROL 62.5-25 MCG ELLIPTA 1 PUFF INHALATION (08:53)
[2022-01-04 09:07] LABS: Hematocrit 25.3 % (37.0-47.0); Hemoglobin 8.5 g/dL (12.0-15.0); Mean Corpuscular HGB Conc 33.6 g/dl (32-36); Mean Corpuscular Hemoglobin 32.8 pg (26-34); Mean Corpuscular Volume 97.7 fl (80-100); Platelet Count Result 578 k/mm3 (150-375); Red Blood Count 2.59 M/mm3 (4.2-5.4); Red Cell Distribution Width 16.2 % (11.5-14.5); White Blood Count 13.8 K/mm3 (4.5-10.0)
--- NOTE | 2022-01-04 09:07 | PCPTNOTE ---
Attempted to see patient for PT at this time, however patient was eating and unable to be seen.
[2022-01-04] MEDS: ASCORBIC ACID 500 MG TABLET 1000 MG PO (09:49)
[2022-01-04] MEDS: CHOLECALCIFEROL 1,000 UNITS TABLET 2000 UNITS PO (09:49)
[2022-01-04] MEDS: MAGNESIUM SULF 2 GM/WATER 50ML 2 GM/50 ML BAG IVPB (09:49)
[2022-01-04] MEDS: SODIUM CHLORIDE 1 GM TABLET PO (09:50)
[2022-01-04] MEDS: VITAMIN E 400 UNIT CAPSULE PO (09:50)
[2022-01-04] MEDS: FAMOTIDINE 20 MG TABLET PO ×2 (09:50→20:28)
[2022-01-04] MEDS: HEPARIN SODIUM 5,000 UNITS/ML VIAL 5000 UNITS SUB-Q ×2 (09:50→20:29)
[2022-01-04] MEDS: estradioL 1 MG TABLET PO (09:50)
[2022-01-04] MEDS: LORazepam (*CRX) 0.5 MG TABLET PO ×3 (09:51→22:15)
[2022-01-04] MEDS: HYDROcodone/acetaminophen (*CRX) 5-325 MG TABLET 1 TAB PO ×3 (09:52→22:10)
[2022-01-04] MEDS: METAXALONE 800 MG TABLET PO ×3 (09:53→22:15)
[2022-01-04] MEDS: ONDANSETRON INJ 4 MG/2 ML VIAL IV PUSH (10:00)
--- NOTE | 2022-01-04 10:09 | PCPTNOTE ---
Patient refused treatment this session due to patient having an upset stomach. Patient reported nursing is aware and gave her something to help.
--- NOTE | 2022-01-04 10:11 | PC.NURSE ---
Gave PO medications to patient. Patient vomited 4 times after swallowing PO medications.
[2022-01-04] MEDS: POTASSIUM CHLORIDE 20 MEQ TABLET 40 MEQ PO (11:09)
[2022-01-04 11:15] LABS: Complement Total CH50 53 U/mL (31-60)
--- NOTE | 2022-01-04 13:02 | PM.PNNEP ---
Progress Note: A&P Additional Plan 1. The patient has acute kidney injury. Her baseline creatinine is normal at 0.5. Renal ultrasound is normal. Fractional excretion of sodium is low suggestive of pre renal azotemia. CPK is not elevated. The patient's creatinine came down again to 1.4. renal biopsy showed ATN plus pyelonephritis. Discussed with Dr. Vivar. she continues on antibiotics. swelling is much better. 2. The patient has hyponatremia. This is chronic. Her baseline sodium is around 130. Today it is 131. Urine sodium is low. Osmolality is are pending. SPEP is pending. Urinalysis showed a specific gravity 1.015. TSH and cortisol are both normal. Chest x-ray is okay. Head CT is negative. She is on fluid restriction of 1400. Her sodium went down a little bit to 127. She said she might have had a little extra to drink yesterday. She made a lot of urine yesterday. Will continue same diuretics. 3. COPD. The patient is getting supportive care 4. GERD No symptoms. On famotidine. 5. The patient had metabolic acidosis. resolved. Off bicarbonate. 6. Nausea and vomiting is resolved. Subjective Date/time seen: 01/04/22 13:02 Interval history: Patient feels about the same. She did not go home because of her elevated white cell count. Exam Narrative: WDWN in NAD skin no rash or subcu nodules head ncat lungs clear to auscultation cor reg no rub or gallop abd BS+ nontender and soft ext Trace to 1+ bilateral edema Objective Data Vital Signs Vital Signs: Vital Signs - 24 hr 01/03/22 14:54 01/04/22 00:00 01/04/22 08:00 Temperature 37.0 C 37.0 C 36.9 C Pulse Rate 83 80 95 Respiratory Rate 16 16 18 Blood Pressure 127/42 L 128/76 145/62 H Pulse Oximetry 100 97 96 Oxygen Delivery 01/04/22 08:00 Temperature Pulse Rate Respiratory Rate Blood Pressure Pulse Oximetry Oxygen Delivery Room Air Intake/Output Intake/Output: Intake & Output 01/01/22 01/02/22 01/03/22 01/04/22 23:59 23:59 23:59 23:59 Intake Total 820 1000 820 290 Output Total 1500 4275 2950 1200 Balance -548 -0720 -2130 -910 Meds/Results Medications: Active Medications Generic Name Dose Route Start Last Admin Trade Name Freq PRN Reason Stop Dose Admin Hydrocodone Bitart/Acetaminophen 1 tab 12/27/21 00:59 01/04/22 09:52 Hydrocodone/Acetaminophen (*Crx) 5-325 Mg Tablet PO 1 tab TID PRN Administration Pain Rated 4-6 Albuterol 2 puff 12/27/21 00:59 Albuterol Sulfate (*Sp) Aerosol 1 Puff INHALATION Q4H PRN shortness of breath or wheezing Albuterol 2.5 mg 12/27/21 06:28 Albuterol Sulfate Neb 2.5 Mg/0.5 Ml Inh INHALATION Q6HRT PRN shortness of breath Ascorbic Acid 1,000 mg 01/03/22 09:00 01/04/22 09:49 Ascorbic Acid 500 Mg Tablet PO 1,000 mg DAILY NAHED Administration Atorvastatin Calcium 20 mg 12/27/21 01:20 12/28/21 21:41 Atorvastatin 20 Mg Tablet PO 20 mg HS NAHED Administration Benzonatate 200 mg 12/27/21 01:12 Benzonatate 100 Mg Capsule PO TID PRN Cough Bisacodyl 10 mg 12/30/21 10:27 Bisacodyl 10 Mg Suppository RECTAL QAM PRN Constipation Estradiol 1 mg 12/27/21 09:00 01/04/22 09:50 Estradiol 1 Mg Tablet PO 1 mg DAILY NAHED Administration Famotidine 20 mg 12/29/21 21:00 01/04/22 09:50 Famotidine 20 Mg Tablet PO 20 mg Q12HR NAHED Administration Furosemide 40 mg 01/04/22 09:00 Furosemide 40 Mg Tablet PO DAILY NAHED Heparin Sodium (Porcine) 5,000 units 12/30/21 21:00 01/04/22 09:50 Heparin Sodium 5,000 Units/Ml Vial SUB-Q 5,000 units Q12HR NAHED Administration Hyoscyamine 0.125 mg 12/27/21 00:59 Hyoscyamine Sulfate 0.125 Mg Tablet PO Q4H PRN Cramps Ceftriaxone Sodium 2 gm/ 100 mls @ 200 mls/hr 01/04/22 16:00 Sodium Chloride IVPB 01/08/22 23:59 Q24H [facility] Ipratropium
[2022-01-04] MEDS: FUROSEMIDE 40 MG TABLET PO (13:04)
[2022-01-04 16:00] VITALS: BP 102/54; PULSE 93; RESP 18; TEMP 36.6; O2SAT 100
[2022-01-04 16:24] LABS: Anion Gap 9 mmol/L (8-16); Blood Urea Nitrogen 24 mg/dL (7-17); Calcium 8.8 mg/dL (8.4-10.2); Carbon Dioxide 29 mmol/L (22-30); Chloride 90 mmol/L (98-107); Estimated CRCL calculation 35 ml/min; Estimated Glomerular Filt Rate 41; Glucose 95 mg/dL (65-110); Magnesium 1.6 mg/dL (1.6-2.3); Potassium 3.4 mmol/L (3.4-5.0); Sodium 128 mmol/L (137-145)
[2022-01-04] MEDS: POTASSIUM CHLORIDE 20 MEQ PACKET (FOR LIQUID) 40 MEQ PO (17:14)
[2022-01-04] MEDS: cefTRIAXone 2 GM in SODIUM CHLORIDE 0.9% IV 100 ML 200 ML IVPB (17:14)
[2022-01-04] MEDS: MAGNESIUM OXIDE 400 MG TABLET PO (17:14)
[2022-01-04 22:20] VITALS: O2SAT 96
[2022-01-05] VITALS: BP 107/53; PULSE 80; RESP 16; TEMP 37.2; O2SAT 96
[2022-01-05 05:18] VITALS: BP 140/56; PULSE 102; RESP 16; O2SAT 93
[2022-01-05] MEDS: HYDROcodone/acetaminophen (*CRX) 5-325 MG TABLET 1 TAB PO ×3 (05:25→21:34)
[2022-01-05] MEDS: METAXALONE 800 MG TABLET PO ×3 (05:26→21:34)
[2022-01-05] MEDS: LORazepam (*CRX) 0.5 MG TABLET PO ×3 (05:26→21:34)
[2022-01-05 05:47] LABS: Hematocrit 27.1 % (37.0-47.0); Hemoglobin 9.3 g/dL (12.0-15.0); Mean Corpuscular HGB Conc 34.3 g/dl (32-36); Mean Corpuscular Hemoglobin 33.6 pg (26-34); Mean Corpuscular Volume 97.8 fl (80-100); Mean Platelet Volume 9.7 fl (7.4-10.4); Platelet Count Result 698 k/mm3 (150-375); Red Blood Count 2.77 M/mm3 (4.2-5.4); Red Cell Distribution Width 15.8 % (11.5-14.5); White Blood Count 15.5 K/mm3 (4.5-10.0)
[2022-01-05 06:06] LABS: Anion Gap 9 mmol/L (8-16); Blood Urea Nitrogen 20 mg/dL (7-17); Calcium 8.4 mg/dL (8.4-10.2); Carbon Dioxide 30 mmol/L (22-30); Chloride 93 mmol/L (98-107); Estimated CRCL calculation 35 ml/min; Estimated Glomerular Filt Rate 41; Glucose 94 mg/dL (65-110); Magnesium 1.3 mg/dL (1.6-2.3); Sodium 132 mmol/L (137-145)
[2022-01-05] MEDS: VITAMIN E 400 UNIT CAPSULE PO (09:36)
[2022-01-05] MEDS: FUROSEMIDE 40 MG TABLET PO (09:36)
[2022-01-05] MEDS: FAMOTIDINE 20 MG TABLET PO ×2 (09:36→20:22)
[2022-01-05] MEDS: SODIUM CHLORIDE 1 GM TABLET PO (09:36)
[2022-01-05] MEDS: CHOLECALCIFEROL 1,000 UNITS TABLET 2000 UNITS PO (09:36)
[2022-01-05] MEDS: MAGNESIUM OXIDE 400 MG TABLET PO (09:36)
[2022-01-05] MEDS: ASCORBIC ACID 500 MG TABLET 1000 MG PO (09:36)
[2022-01-05] MEDS: HEPARIN SODIUM 5,000 UNITS/ML VIAL 5000 UNITS SUB-Q ×2 (09:36→20:22)
[2022-01-05] MEDS: estradioL 1 MG TABLET PO (09:38)
[2022-01-05] MEDS: UMECLIDINIUM/VILANTEROL 62.5-25 MCG ELLIPTA 1 PUFF INHALATION (10:02)
[2022-01-05 13:42] VITALS: BP 113/45; PULSE 92; RESP 16; TEMP 36.4; O2SAT 100
--- NOTE | 2022-01-05 14:47 | PM.IMPN ---
Progress Note: A&P Assessment and Plan (1) Acute kidney failure: Qualifiers: Acute renal failure type: unspecified Qualified Code(s): N17.9 - Acute kidney failure, unspecified Code(s): N17.9 - Acute kidney failure, unspecified Status: Acute (2) Chronic hyponatremia: Code(s): E87.1 - Hypo-osmolality and hyponatremia Status: Acute (3) Urinary tract infection: Qualifiers: Hematuria presence: with hematuria Urinary tract infection type: acute cystitis Qualified Code(s): N30.01 - Acute cystitis with hematuria Code(s): N39.0 - Urinary tract infection, site not specified Status: Acute (4) COPD with emphysema: Code(s): J43.9 - Emphysema, unspecified Status: Acute (5) Chronic obstructive pulmonary disease: Qualifiers: COPD type: unspecified COPD Qualified Code(s): J44.9 - Chronic obstructive pulmonary disease, unspecified Code(s): J44.9 - Chronic obstructive pulmonary disease, unspecified Status: Acute Plan # Generalized weakness/nausea vomiting/altered mental statusPT OT to see and now ambulating well. # UTI started on Rocephin follow urine culture with colitis will change it to Zosyn . Urine culture with E coli sensitive to currently Zosyn. With worsening renal failure or non improvement possibility of interstitial nephritis related to Zosyn is being sought. Discussed with Nephrology. Will change antibiotic to Levaquin and Flagyl. UTI E coli which was resistant to Levaquin. Recheck urinalysis with the similar pattern suggestive of infection versus ATN. Renal biopsy also positive for ATN and pyelonephritis. Antibiotics switched to meropenem pancultured follow culture. WBC count slowly continues to improve on meropenem. Will continue meropenem as ordered. # Ascending colitis appendix was normal on recent CT scan. Repeat CT with resolution of these findings. Now stopped Levaquin and Flagyl for this colitis # Severe hyponatremia 119 on admission. Continues to improve slowly. Continue to monitor slow rise planned 8-10 per day. Likely hypovolemic hyponatremia. TSH cortisol SPEP UPEP planned. And cortisol level normal at 16.7. Seem to have chronic hyponatremia ranging between 120-130 . Slowly improving. Treated with 3% saline 12/30/2021 Fluid restriction was released with sodium level with slight trend downward today. Added salt tablets. Sodium level better today together with Lasix 20 mg b.i.d.. # BRETT CK level normal creatinine 3.8 IV normal saline nephrology consulted. Baseline creatinine 0.5 likely prerenal. Renal ultrasound with no hydronephrosis. Creatinine about the same. Renal biopsy done 12/29/21. Findings of ATN/pyelonephritis in the renal biopsy. Antibiotic therapy as delineated above. Creatinine Continues to improve. Peaked at 4.2. 2.4 today # Metabolic acidosis on bicarb drip improving # Mild hypoglycemia # Thrombocytopenia no prior history. Platelet count of 53,000. Continues to improve slowly. Will consult hospital chief financial officer? TTP diagnosis althoughno schistocytes was seen in the peripheral smear. [employer] evaluated. Workup in process. LDH is normal. Fibrinogen is high. Thrombocytopenia has resolved now # Elevated LFT particularly Elevated alkaline phosphatase right upper quadrant ultrasound with hepatic steatosis and gallbladder hydrops. Continues to worsen. Recent right upper quadrant ultrasound was negative. Repeat ultrasound as LFT continues to worsen with no acute findings. Repeat CT chest abdomen pelvis reviewed. # COPD/emphysema # Chronic back pain # Generalized anxiety disorder # GERD # DVT prophylaxis heparin subQ hold now due to dark stool . H&H continues to decline with no active signs of bleeding. Will continue to monitor # dark stool FOBT came back negative. H&H is slightly lower but stable will continue to monitor now. L heparin but now stable will resume DVT prophylaxis
--- NOTE | 2022-01-05 16:05 | PM.PNNEP ---
Progress Note: A&P Additional Plan 1. The patient has acute kidney injury. Her baseline creatinine is normal at 0.5. Renal ultrasound is normal. Fractional excretion of sodium is low suggestive of pre renal azotemia. CPK is not elevated. The patient's creatinine seems to be settling at 1.3 or so. renal biopsy showed ATN plus pyelonephritis. she continues on swelling is much better. 2. The patient has hyponatremia. This is chronic. Her baseline sodium is around 130. Urine sodium is low. Osmolality is are pending. SPEP is pending. Urinalysis showed a specific gravity 1.015. TSH and cortisol are both normal. Chest x-ray is okay. Head CT is negative. She is on fluid restriction of 1400. sodium is 132 today. it is up and down around 130. on diuretics for edema and salt tab to keep the sodium from dropping due to the diuretics 3. COPD. The patient is getting supportive care 4. GERD No symptoms. On famotidine. 5. metabolic acidosis resolved. 6. Nausea and vomiting is resolved. Subjective Date/time seen: 01/05/22 16:05 Interval history: Patient feels about the same. in the room. no cp or sob. Exam Narrative: WDWN in NAD skin no rash or subcu nodules head ncat lungs clear cor reg no rub or gallop abd BS+ nontender and soft ext trace edema. Objective Data Vital Signs Vital Signs: Vital Signs - 24 hr 01/04/22 20:00 01/05/22 00:00 01/05/22 05:18 Temperature 37.2 C Pulse Rate 80 102 H Respiratory Rate 16 16 Blood Pressure 107/53 L 140/56 L Pulse Oximetry 96 93 Oxygen Delivery Room Air 01/04/22 22:20 01/05/22 08:00 01/05/22 10:41 Temperature Pulse Rate Respiratory Rate Blood Pressure Pulse Oximetry 96 Oxygen Delivery Room Air Room Air Room Air 01/05/22 13:42 Temperature 36.4 C Pulse Rate 92 Respiratory Rate 16 Blood Pressure 113/45 L Pulse Oximetry 100 Oxygen Delivery Intake/Output Intake/Output: Intake & Output 01/02/22 01/03/22 01/04/22 01/05/22 23:59 23:59 23:59 23:59 Intake Total 1000 820 880 380 Output Total 4275 2950 1900 800 Balance -3275 -2130 -1020 -420 Meds/Results Medications: Active Medications Generic Name Dose Route Start Last Admin Trade Name Freq PRN Reason Stop Dose Admin Hydrocodone Bitart/Acetaminophen 1 tab 12/27/21 00:59 01/05/22 13:35 Hydrocodone/Acetaminophen (*Crx) 5-325 Mg Tablet PO 01/16/22 00:58 1 tab TID PRN Administration Pain Rated 4-6 Albuterol 2 puff 12/27/21 00:59 Albuterol Sulfate (*Sp) Aerosol 1 Puff INHALATION Q4H PRN shortness of breath or wheezing Albuterol 2.5 mg 12/27/21 06:28 Albuterol Sulfate Neb 2.5 Mg/0.5 Ml Inh INHALATION Q6HRT PRN shortness of breath Ascorbic Acid 1,000 mg 01/03/22 09:00 01/05/22 09:36 Ascorbic Acid 500 Mg Tablet PO 1,000 mg DAILY NAHED Administration Atorvastatin Calcium 20 mg 12/27/21 01:20 12/28/21 21:41 Atorvastatin 20 Mg Tablet PO 20 mg HS NAHED Administration Benzonatate 200 mg 12/27/21 01:12 Benzonatate 100 Mg Capsule PO TID PRN Cough Bisacodyl 10 mg 12/30/21 10:27 Bisacodyl 10 Mg Suppository RECTAL QAM PRN Constipation Estradiol 1 mg 12/27/21 09:00 01/05/22 09:38 Estradiol 1 Mg Tablet PO 1 mg DAILY NAHED Administration Famotidine 20 mg 12/29/21 21:00 01/05/22 09:36 Famotidine 20 Mg Tablet PO 20 mg Q12HR NAHED Administration Furosemide 40 mg 01/04/22 09:00 01/05/22 09:36 Furosemide 40 Mg Tablet PO 40 mg DAILY NAHED Administration Heparin Sodium (Porcine) 5,000 units 12/30/21 21:00 01/05/22 09:36 Heparin Sodium 5,000 Units/Ml Vial SUB-Q 5,000 units Q12HR NAHED Administration Hyoscyamine 0.125 mg 12/27/21 00:59 Hyoscyamine Sulfate 0.125 Mg Tablet PO Q4H PRN Cramps Imipenem/Cilastatin Sodium 500 mg in 100 mls @ 300 mls/hr 08
[2022-01-05 21:06] VITALS: BP 144/50; PULSE 92; RESP 18; TEMP 36.6; O2SAT 96
[2022-01-06 04:45] VITALS: BP 149/71; PULSE 90; RESP 16; TEMP 36.6; O2SAT 97
[2022-01-06] MEDS: LORazepam (*CRX) 0.5 MG TABLET PO ×3 (05:39→21:33)
[2022-01-06] MEDS: HYDROcodone/acetaminophen (*CRX) 5-325 MG TABLET 1 TAB PO ×3 (05:39→21:33)
[2022-01-06] MEDS: METAXALONE 800 MG TABLET PO ×3 (05:39→21:33)
[2022-01-06 06:33] LABS: Hematocrit 27.3 % (37.0-47.0); Hemoglobin 9.2 g/dL (12.0-15.0); Mean Corpuscular HGB Conc 33.7 g/dl (32-36); Mean Corpuscular Hemoglobin 32.9 pg (26-34); Mean Corpuscular Volume 97.5 fl (80-100); Mean Platelet Volume 9.9 fl (7.4-10.4); Platelet Count Result 807 k/mm3 (150-375); Red Cell Distribution Width 15.6 % (11.5-14.5); White Blood Count 15.8 K/mm3 (4.5-10.0)
[2022-01-06 07:06] LABS: Anion Gap 8 mmol/L (8-16); Blood Urea Nitrogen 19 mg/dL (7-17); Calcium 8.8 mg/dL (8.4-10.2); Carbon Dioxide 31 mmol/L (22-30); Chloride 89 mmol/L (98-107); Estimated CRCL calculation 38 ml/min; Estimated Glomerular Filt Rate 45; Glucose 79 mg/dL (65-110); Magnesium 1.2 mg/dL (1.6-2.3); Potassium 3.3 mmol/L (3.4-5.0); Sodium 128 mmol/L (137-145)
[2022-01-06 08:00] VITALS: O2SAT 98
[2022-01-06] MEDS: UMECLIDINIUM/VILANTEROL 62.5-25 MCG ELLIPTA 1 PUFF INHALATION ×2 (09:05→09:06)
[2022-01-06 09:06] VITALS: O2SAT 94
[2022-01-06] MEDS: VITAMIN E 400 UNIT CAPSULE PO (09:46)
[2022-01-06] MEDS: CHOLECALCIFEROL 1,000 UNITS TABLET 2000 UNITS PO (09:46)
[2022-01-06] MEDS: FAMOTIDINE 20 MG TABLET PO ×2 (09:46→20:22)
[2022-01-06] MEDS: POTASSIUM CHLORIDE 20 MEQ PACKET (FOR LIQUID) 40 MEQ PO (09:46)
[2022-01-06] MEDS: FUROSEMIDE 40 MG TABLET PO (09:46)
[2022-01-06] MEDS: estradioL 1 MG TABLET PO (09:46)
[2022-01-06] MEDS: MAGNESIUM SULF 4 GM/WATER100ML 4 GM/100 ML BAG IVPB (09:46)
[2022-01-06] MEDS: HEPARIN SODIUM 5,000 UNITS/ML VIAL 5000 UNITS SUB-Q ×2 (09:47→20:22)
[2022-01-06] MEDS: SODIUM CHLORIDE 1 GM TABLET PO (09:47)
[2022-01-06] MEDS: MAGNESIUM OXIDE 400 MG TABLET PO (09:47)
[2022-01-06] MEDS: ASCORBIC ACID 500 MG TABLET 1000 MG PO (09:47)
[2022-01-06 11:24] LABS: Heparin Induced Platelet Antib Negative (Negative)
--- NOTE | 2022-01-06 11:39 | PM.PNNEP ---
Progress Note: A&P Additional Plan 1. The patient has acute kidney injury. Her baseline creatinine is normal at 0.5. Renal ultrasound is normal. Fractional excretion of sodium is low suggestive of pre renal azotemia. CPK is not elevated. The patient's creatinine Fell to 1.2. renal biopsy showed ATN plus pyelonephritis. she continues on antibiotics. Creatinine is improving. Patient was asking for something else we should do about the infection. I do not think so. I do not think repeating the renal biopsy is going to help. Her white cell count is still high. She did have colitis earlier in the hospital stay but the repeat CT scanned showed resolution of this. Dr. Luke is going to ask hematology to see. 2. The patient has hyponatremia. This is chronic. Her baseline sodium is around 130. Urine sodium is low. Osmolality is are pending. SPEP is pending. Urinalysis showed a specific gravity 1.015. TSH and cortisol are both normal. Chest x-ray is okay. Head CT is negative. She is on fluid restriction of 1400. sodium is 132 today. it is up and down around 130. Since swelling is better will stop the diuretics and the salt tablets. Consider increasing fluid if the sodium stays At her baseline. 3. COPD. The patient is getting supportive care 4. GERD No symptoms. On famotidine. 5. metabolic acidosis resolved. 6. Nausea and vomiting is resolved. Subjective Date/time seen: 01/06/22 11:39 Interval history: Patient feels about the same. No chest pain or shortness of breath Exam Narrative: WDWN in NAD skin no rash or subcu nodules head ncat lungs clear cor reg no rub or gallop abd BS+ nontender and soft ext very little edema. edema. Objective Data Vital Signs Vital Signs: Vital Signs - 24 hr 01/05/22 13:42 01/05/22 21:06 01/06/22 04:45 Temperature 36.4 C 36.6 C 36.6 C Pulse Rate 92 92 90 Respiratory Rate 16 18 16 Blood Pressure 113/45 L 144/50 H 149/71 H Pulse Oximetry 100 96 97 Oxygen Delivery 01/06/22 09:06 Temperature Pulse Rate Respiratory Rate Blood Pressure Pulse Oximetry 94 Oxygen Delivery Room Air Intake/Output Intake/Output: Intake & Output 01/03/22 01/04/22 01/05/22 01/06/22 23:59 23:59 23:59 23:59 Intake Total 727 655 2684 440 Output Total 2950 1900 2600 232 Balance -6554 -1960 -1380 -110 Meds/Results Medications: Active Medications Generic Name Dose Route Start Last Admin Trade Name Freq PRN Reason Stop Dose Admin Hydrocodone Bitart/Acetaminophen 1 tab 12/27/21 00:59 01/06/22 05:39 Hydrocodone/Acetaminophen (*Crx) 5-325 Mg Tablet PO 01/16/22 00:58 1 tab TID PRN Administration Pain Rated 4-6 Albuterol 2 puff 12/27/21 00:59 Albuterol Sulfate (*Sp) Aerosol 1 Puff INHALATION Q4H PRN shortness of breath or wheezing Albuterol 2.5 mg 12/27/21 06:28 Albuterol Sulfate Neb 2.5 Mg/0.5 Ml Inh INHALATION Q6HRT PRN shortness of breath Ascorbic Acid 1,000 mg 01/03/22 09:00 01/06/22 09:47 Ascorbic Acid 500 Mg Tablet PO 1,000 mg DAILY NAHED Administration Atorvastatin Calcium 20 mg 12/27/21 01:20 12/28/21 21:41 Atorvastatin 20 Mg Tablet PO 20 mg HS NAHED Administration Benzonatate 200 mg 12/27/21 01:12 Benzonatate 100 Mg Capsule PO TID PRN Cough Bisacodyl 10 mg 12/30/21 10:27 Bisacodyl 10 Mg Suppository RECTAL QAM PRN Constipation Estradiol 1 mg 12/27/21 09:00 01/06/22 09:46 Estradiol 1 Mg Tablet PO 1 mg DAILY NAHED Administration Famotidine 20 mg 12/29/21 21:00 01/06/22 09:46 Famotidine 20 Mg Tablet PO 20 mg Q12HR NAHED Administration Furosemide 40 mg 01/04/22 09:00 01/06/22 09:46 Furosemide 40 Mg Tablet PO 40 mg DAILY NAHED Administration Heparin Sodium (Porcine) 5,000 units 12/30/21 21:00 01/06/22 09:47 Heparin Sodium 5,000 Units/Ml Vial SUB-Q 5
[2022-01-06 14:00] VITALS: BP 104/46; PULSE 93; RESP 16; TEMP 36.8; O2SAT 98
[2022-01-06 19:52] VITALS: BP 128/60; PULSE 78; RESP 18; TEMP 36.2; O2SAT 94
[2022-01-07 04:46] VITALS: BP 152/63; PULSE 86; RESP 18; TEMP 36.4; O2SAT 97
[2022-01-07 05:33] LABS: Albumin Level 2.9 g/dL (3.5-5.1); Anion Gap 6 mmol/L (8-16); Blood Urea Nitrogen 19 mg/dL (7-17); Calcium 9.2 mg/dL (8.4-10.2); Carbon Dioxide 31 mmol/L (22-30); Chloride 89 mmol/L (98-107); Estimated CRCL calculation 38 ml/min; Estimated Glomerular Filt Rate 45; Glucose 89 mg/dL (65-110); Magnesium 1.7 mg/dL (1.6-2.3); Phosphorus 4.6 mg/dL (2.5-4.5); Potassium 3.3 mmol/L (3.4-5.0); Sodium 126 mmol/L (137-145)
[2022-01-07] MEDS: HYDROcodone/acetaminophen (*CRX) 5-325 MG TABLET 1 TAB PO ×3 (05:41→20:31)
[2022-01-07] MEDS: LORazepam (*CRX) 0.5 MG TABLET PO ×3 (05:41→20:31)
[2022-01-07] MEDS: METAXALONE 800 MG TABLET PO ×3 (05:41→20:31)
[2022-01-07 06:12] LABS: Hematocrit 26.4 % (37.0-47.0); Hemoglobin 8.9 g/dL (12.0-15.0); Mean Corpuscular HGB Conc 33.7 g/dl (32-36); Mean Corpuscular Hemoglobin 32.5 pg (26-34); Mean Corpuscular Volume 96.4 fl (80-100); Mean Platelet Volume 9.8 fl (7.4-10.4); Platelet Count Result 876 k/mm3 (150-375); Red Blood Count 2.74 M/mm3 (4.2-5.4); Red Cell Distribution Width 15.7 % (11.5-14.5); White Blood Count 13.1 K/mm3 (4.5-10.0)
[2022-01-07] MEDS: UMECLIDINIUM/VILANTEROL 62.5-25 MCG ELLIPTA 1 PUFF INHALATION (08:00)
[2022-01-07] MEDS: FAMOTIDINE 20 MG TABLET PO ×2 (08:29→20:31)
[2022-01-07] MEDS: MAGNESIUM OXIDE 400 MG TABLET PO (08:29)
[2022-01-07] MEDS: ASCORBIC ACID 500 MG TABLET 1000 MG PO (08:29)
[2022-01-07] MEDS: CHOLECALCIFEROL 1,000 UNITS TABLET 2000 UNITS PO (08:29)
[2022-01-07] MEDS: estradioL 1 MG TABLET PO (08:29)
[2022-01-07] MEDS: VITAMIN E 400 UNIT CAPSULE PO (08:30)
[2022-01-07] MEDS: HEPARIN SODIUM 5,000 UNITS/ML VIAL 5000 UNITS SUB-Q ×2 (08:30→20:32)
[2022-01-07] MEDS: POTASSIUM CHLORIDE 20 MEQ PACKET (FOR LIQUID) 40 MEQ PO (08:36)
--- NOTE | 2022-01-07 11:34 | PM.PNNEP ---
Progress Note: A&P Additional Plan 1. The patient has acute kidney injury. Her baseline creatinine is normal at 0.5. Renal ultrasound is normal. Fractional excretion of sodium is low suggestive of pre renal azotemia. CPK is not elevated. The patient's creatinine is stable at 1.2. renal biopsy showed ATN plus pyelonephritis. she continues on antibiotics. White count is better. 2. The patient has hyponatremia. This is chronic. Her baseline sodium is around 130. Urine sodium is low. Osmolality is are pending. SPEP is pending. Urinalysis showed a specific gravity 1.015. TSH and cortisol are both normal. Chest x-ray is okay. Head CT is negative. She is on fluid restriction of 1400. Today the sodium was 126. Perhaps the to biotic his diluting her. Will add salt tablets To balance this. 3. COPD. The patient is getting supportive care 4. GERD No symptoms. On famotidine. 5. metabolic acidosis resolved. 6. Nausea and vomiting is resolved. Subjective Date/time seen: 01/07/22 11:34 Interval history: Patient feels about the same. up in out of bed. Doing some paperwork for her work. She is in playing close because she is going to see her grand kids Down stairs. Exam Narrative: WDWN in NAD skin no rash or subcu nodules head ncat lungs clear bilaterally cor reg no rub or gallop abd BS+ nontender and soft ext very little edema. Objective Data Vital Signs Vital Signs: Vital Signs - 24 hr 01/06/22 14:00 01/06/22 19:52 01/07/22 04:46 Temperature 36.8 C 36.2 C L 36.4 C Pulse Rate 93 78 86 Respiratory Rate 16 18 18 Blood Pressure 104/46 L 128/60 152/63 H Pulse Oximetry 98 94 97 Intake/Output Intake/Output: Intake & Output 01/04/22 01/05/22 01/06/22 01/07/22 23:59 23:59 23:59 23:59 Intake Total 880 1220 1220 480 Output Total 1900 2600 1850 900 Balance -1020 -1380 -630 -420 Meds/Results Medications: Active Medications Generic Name Dose Route Start Last Admin Trade Name Freq PRN Reason Stop Dose Admin Hydrocodone Bitart/Acetaminophen 1 tab 12/27/21 00:59 01/07/22 05:41 Hydrocodone/Acetaminophen (*Crx) 5-325 Mg Tablet PO 01/16/22 00:58 1 tab TID PRN Administration Pain Rated 4-6 Albuterol 2 puff 12/27/21 00:59 Albuterol Sulfate (*Sp) Aerosol 1 Puff INHALATION Q4H PRN shortness of breath or wheezing Albuterol 2.5 mg 12/27/21 06:28 Albuterol Sulfate Neb 2.5 Mg/0.5 Ml Inh INHALATION Q6HRT PRN shortness of breath Ascorbic Acid 1,000 mg 01/03/22 09:00 01/07/22 08:29 Ascorbic Acid 500 Mg Tablet PO 1,000 mg DAILY NAHED Administration Aspirin 81 mg 01/07/22 11:05 Aspirin 81 Mg Enteric Tablet PO QAM NAHED Atorvastatin Calcium 20 mg 12/27/21 01:20 12/28/21 21:41 Atorvastatin 20 Mg Tablet PO 20 mg HS NAHED Administration Benzonatate 200 mg 12/27/21 01:12 Benzonatate 100 Mg Capsule PO TID PRN Cough Bisacodyl 10 mg 12/30/21 10:27 Bisacodyl 10 Mg Suppository RECTAL QAM PRN Constipation Estradiol 1 mg 12/27/21 09:00 01/07/22 08:29 Estradiol 1 Mg Tablet PO 1 mg DAILY NAHED Administration Famotidine 20 mg 12/29/21 21:00 01/07/22 08:29 Famotidine 20 Mg Tablet PO 20 mg Q12HR NAHED Administration Heparin Sodium (Porcine) 5,000 units 12/30/21 21:00 01/07/22 08:30 Heparin Sodium 5,000 Units/Ml Vial SUB-Q 5,000 units Q12HR NAHED Administration Hyoscyamine 0.125 mg 12/27/21 00:59 Hyoscyamine Sulfate 0.125 Mg Tablet PO Q4H PRN Cramps Imipenem/Cilastatin Sodium 500 mg in 100 mls @ 300 mls/hr 01/05/22 14:00 01/07/22 05:43 Primaxin 500 Mg/Ns 100 Ml IVPB 300 mls/hr Q8HR NAHED Administration Ipratropium [place] 0.5 mg 12/27/21 06:27 Ipratropium Br 0.02% Inh Soln 0.5 Mg/2.5 Ml Vial INHALATION Q6HRT PRN shortness of breath Loratadine 10 mg 12/27/21 00:59
[2022-01-07] MEDS: ASPIRIN 81 MG ENTERIC TABLET PO (12:37)
[2022-01-07 14:00] VITALS: BP 111/45; PULSE 84; RESP 16; TEMP 36.4; O2SAT 100
[2022-01-07 20:39] VITALS: BP 127/58; PULSE 77; RESP 16; TEMP 36.1; O2SAT 98
[2022-01-08 04:41] VITALS: BP 131/50; PULSE 89; RESP 18; TEMP 36.2; O2SAT 94
[2022-01-08] MEDS: METAXALONE 800 MG TABLET PO ×3 (04:54→20:40)
[2022-01-08] MEDS: HYDROcodone/acetaminophen (*CRX) 5-325 MG TABLET 1 TAB PO ×3 (04:54→20:40)
[2022-01-08] MEDS: LORazepam (*CRX) 0.5 MG TABLET PO ×3 (04:54→20:40)
[2022-01-08 05:59] LABS: Hematocrit 24.8 % (37.0-47.0); Hemoglobin 8.3 g/dL (12.0-15.0); Mean Corpuscular HGB Conc 33.5 g/dl (32-36); Mean Corpuscular Hemoglobin 33.2 pg (26-34); Mean Corpuscular Volume 99.2 fl (80-100); Mean Platelet Volume 9.2 fl (7.4-10.4); Platelet Count Result 805 k/mm3 (150-375); Red Cell Distribution Width 15.6 % (11.5-14.5); White Blood Count 12.3 K/mm3 (4.5-10.0)
[2022-01-08 06:11] LABS: Anion Gap 8 mmol/L (8-16); Blood Urea Nitrogen 18 mg/dL (7-17); Calcium 8.6 mg/dL (8.4-10.2); Carbon Dioxide 28 mmol/L (22-30); Chloride 92 mmol/L (98-107); Estimated CRCL calculation 41 ml/min; Estimated Glomerular Filt Rate 50; Glucose 89 mg/dL (65-110); Magnesium 1.4 mg/dL (1.6-2.3); Potassium 3.6 mmol/L (3.4-5.0); Sodium 128 mmol/L (137-145)
[2022-01-08 09:14] VITALS: PULSE 86; RESP 12
[2022-01-08] MEDS: UMECLIDINIUM/VILANTEROL 62.5-25 MCG ELLIPTA 1 PUFF INHALATION (09:14)
[2022-01-08] MEDS: ASCORBIC ACID 500 MG TABLET 1000 MG PO (09:21)
[2022-01-08] MEDS: estradioL 1 MG TABLET PO (09:21)
[2022-01-08] MEDS: VITAMIN E 400 UNIT CAPSULE PO (09:21)
[2022-01-08] MEDS: HEPARIN SODIUM 5,000 UNITS/ML VIAL 5000 UNITS SUB-Q ×2 (09:21→20:40)
[2022-01-08] MEDS: ASPIRIN 81 MG ENTERIC TABLET PO (09:21)
[2022-01-08] MEDS: MAGNESIUM OXIDE 400 MG TABLET PO (09:22)
[2022-01-08] MEDS: FAMOTIDINE 20 MG TABLET PO ×2 (09:22→20:40)
[2022-01-08] MEDS: CHOLECALCIFEROL 1,000 UNITS TABLET 2000 UNITS PO (09:22)
[2022-01-08 13:41] VITALS: BP 118/59; PULSE 81; RESP 16; TEMP 36.6; O2SAT 100
--- NOTE | 2022-01-08 15:27 | P.PNNP_ITS ---
Progress Note: A&P Assessment and Plan (1) Acute kidney failure: Qualifiers: Acute renal failure type: unspecified Qualified Code(s): N17.9 - Acute kidney failure, unspecified Code(s): N17.9 - Acute kidney failure, unspecified Status: Acute Assessment and Plan: * normal creatinine at baseline * RENAL BIOPSY = ATN + pyelonephritis * previous evaluation: * normal renal ultrasound * urine electrolytes suggestive of prerenal azotemia * CPK no elevated * continue supportive therapy (2) Hyponatremia: Code(s): E87.1 - Hypo-osmolality and hyponatremia Status: Acute Assessment and Plan: * acute on chronic * baseline sodium level runs ~ 130mmol/L * 119mmol/L on admission * slowly improving with current interventions to date (s/p 3% saline, fluid restriction, lasix and salt tablets) * currently just on salt tabs and fluid restriction * evaluation to date: * normal TSH and cortisol * urine sodium low * imaging of chest and brain negative * SPEP with possible restricted band (M-spike) * serum/urine osmo pending * sodium continues to improve * follow trend with salt tabs and fluid restriction Will continue to follow. Subjective Date/time seen: 01/08/22 15:27 Chart reviewed - assuming care from Dr. Schultz; appears to be doing reasonably well; sodium level appears to be slowly improving with current interventions; anxious for possible discharge but awaiting to be seen by Hem/Onc; no other acute issues/events overnight or earlier this AM. Exam Narrative: General: WD/WN female in NAD Heart: normal S1 and S2; no rub Lungs: clear to auscultation Abdomen: soft, nontender, nondistended, positive bowel sounds Extremities: no cyanosis or clubbing; trace edema Skin: warm and dry Objective Data Vital Signs Vital Signs: Vital Signs Temp Pulse Resp BP Pulse Ox O2 Del Method 01/08/22 13:41 36.6 C 81 16 118/59 L 100 01/08/22 09:30 Room Air 01/08/22 09:14 86 12 01/08/22 04:41 36.2 C L 89 18 131/50 L 94 01/07/22 20:00 Room Air 01/07/22 20:39 36.1 C L 77 16 127/58 L 98 Intake/Output Intake/Output: Intake & Output 01/05/22 01/06/22 01/07/22 01/08/22 23:59 23:59 23:59 23:59 Intake Total 1220 1220 1260 1170 Output Total 2600 1850 2500 1050 Balance -0883 -760 -5823 120 Meds/Results Medications: Active Medications Generic Name Dose Route Start Last Admin Trade Name Freq PRN Reason Stop Dose Admin Hydrocodone Bitart/Acetaminophen 1 tab 12/27/21 00:59 01/08/22 13:23 Hydrocodone/Acetaminophen (*Crx) 5-325 Mg Tablet PO 01/16/22 00:58 1 tab TID PRN Administration Pain Rated 4-6 Albuterol 2 puff 12/27/21 00:59 Albuterol Sulfate (*Sp) Aerosol 1 Puff INHALATION Q4H PRN shortness of breath or wheezing Albuterol 2.5 mg 12/27/21 06:28 Albuterol Sulfate Neb 2.5 Mg/0.5 Ml Inh INHALATION Q6HRT PRN shortness of breath Ascorbic Acid 1,000 mg 01/03/22 09:00 01/08/22 09:21 Ascorbic Acid 500 Mg Tablet PO 1,000 mg DAILY NAHED Administration Aspirin 81 mg 01/07/22 11:0
--- NOTE | 2022-01-08 15:27 | PM.PNNEP ---
Progress Note: A&P Assessment and Plan (1) Acute kidney failure: Qualifiers: Acute renal failure type: unspecified Qualified Code(s): N17.9 - Acute kidney failure, unspecified Code(s): N17.9 - Acute kidney failure, unspecified Status: Acute Assessment and Plan: normal creatinine at baseline RENAL BIOPSY = ATN + pyelonephritis previous evaluation: normal renal ultrasound urine electrolytes suggestive of prerenal azotemia CPK no elevated continue supportive therapy (2) Hyponatremia: Code(s): E87.1 - Hypo-osmolality and hyponatremia Status: Acute Assessment and Plan: acute on chronic baseline sodium level runs ~ 130mmol/L 119mmol/L on admission slowly improving with current interventions to date (s/p 3% saline, fluid restriction, lasix and salt tablets) currently just on salt tabs and fluid restriction evaluation to date: normal TSH and cortisol urine sodium low imaging of chest and brain negative SPEP with possible restricted band (M-spike) serum/urine osmo pending sodium continues to improve follow trend with salt tabs and fluid restriction Will continue to follow. Subjective Date/time seen: 01/08/22 15:27 Chart reviewed - assuming care from Dr. Schultz; appears to be doing reasonably well; sodium level appears to be slowly improving with current interventions; anxious for possible discharge but awaiting to be seen by Hem/Onc; no other acute issues/events overnight or earlier this AM. Exam Narrative: General: WD/WN female in NAD Heart: normal S1 and S2; no rub Lungs: clear to auscultation Abdomen: soft, nontender, nondistended, positive bowel sounds Extremities: no cyanosis or clubbing; trace edema Skin: warm and dry Objective Data Vital Signs Vital Signs: Vital Signs Temp Pulse Resp BP Pulse Ox O2 Del Method 01/08/22 13:41 36.6 C 81 16 118/59 L 100 01/08/22 09:30 Room Air 01/08/22 09:14 86 12 01/08/22 04:41 36.2 C L 89 18 131/50 L 94 01/07/22 20:00 Room Air 01/07/22 20:39 36.1 C L 77 16 127/58 L 98 Intake/Output Intake/Output: Intake & Output 01/05/22 01/06/22 01/07/22 01/08/22 23:59 23:59 23:59 23:59 Intake Total 1220 1220 1260 1170 Output Total 2600 1850 6456 1050 Balance -2638 -351 -7186 120 Meds/Results Medications: Active Medications Generic Name Dose Route Start Last Admin Trade Name Freq PRN Reason Stop Dose Admin Hydrocodone Bitart/Acetaminophen 1 tab 12/27/21 00:59 01/08/22 13:23 Hydrocodone/Acetaminophen (*Crx) 5-325 Mg Tablet PO 01/16/22 00:58 1 tab TID PRN Administration Pain Rated 4-6 Albuterol 2 puff 12/27/21 00:59 Albuterol Sulfate (*Sp) Aerosol 1 Puff INHALATION Q4H PRN shortness of breath or wheezing Albuterol 2.5 mg 12/27/21 06:28 Albuterol Sulfate Neb 2.5 Mg/0.5 Ml Inh INHALATION Q6HRT PRN shortness of breath Ascorbic Acid 1,000 mg 01/03/22 09:00 01/08/22 09:21 Ascorbic Acid 500 Mg Tablet PO 1,000 mg DAILY NAHED Administration Aspirin 81 mg 01/07/22 11:05 01/08/22 09:21 Aspirin 81 Mg Enteric Tablet PO 81 mg QAM NAHED Administration Atorvastatin Calcium 20 mg 12/27/21 01:20 12/28/21 21:41 Atorvastatin 20 Mg Tablet PO 20 mg HS NAHED Administration Benzonatate 200 mg 12/27/21 01:12 Benzonatate 100 Mg Capsule PO TID PRN Cough Bisacodyl 10 mg 12/30/21 10:27 Bisacodyl 10 Mg Suppository RECTAL QAM PRN Constipation Estradiol 1 mg 12/27/21 09:00 01/08/22 09:21 Estradiol 1 Mg Tablet PO 1 mg DAILY NAHED Administration Famotidine 20 mg 12/29/21 21:00 01/08/22 09:22 Famotidine 20 Mg Tablet PO 20 mg Q12HR NAHED Administration Heparin Sodium (Porcine) 5,000 units 12/30/21 21:00 01/08/22 09:21 Heparin Sodium 5,000 Units/Ml Vial SUB-Q 5,000 units Q12HR NAHED Administration Hyoscyamine 0.125 mg 12/27/21
[2022-01-08] MEDS: SODIUM CHLORIDE 1 GM TABLET PO (16:32)
--- NOTE | 2022-01-08 16:36 | P.PNIM_ITS ---
Progress Note: A&P Assessment and Plan (1) Acute kidney failure: Qualifiers: Acute renal failure type: unspecified Qualified Code(s): N17.9 - Acute kidney failure, unspecified Code(s): N17.9 - Acute kidney failure, unspecified Status: Acute (2) Chronic hyponatremia: Code(s): E87.1 - Hypo-osmolality and hyponatremia Status: Acute (3) Urinary tract infection: Qualifiers: Hematuria presence: with hematuria Urinary tract infection type: acute cystitis Qualified Code(s): N30.01 - Acute cystitis with hematuria Code(s): N39.0 - Urinary tract infection, site not specified Status: Acute (4) COPD with emphysema: Code(s): J43.9 - Emphysema, unspecified Status: Acute (5) Chronic obstructive pulmonary disease: Qualifiers: COPD type: unspecified COPD Qualified Code(s): J44.9 - Chronic obstructive pulmonary disease, unspecified Code(s): J44.9 - Chronic obstructive pulmonary disease, unspecified Status: Acute Plan # Generalized weakness/nausea vomiting/altered mental statusPT OT to see and now ambulating well. # UTI started on Rocephin follow urine culture with colitis will change it to Zosyn . Urine culture with E coli sensitive to currently Zosyn. With worsening renal failure or non improvement possibility of interstitial nephritis related to Zosyn is being sought. Discussed with Nephrology. Will change antib iotic to Levaquin and Flagyl. UTI E coli which was resistant to Levaquin. Recheck urinalysis with the similar pattern suggestive of infection versus ATN. Renal biopsy also positive for ATN and pyelonephritis. Antibiotics switched to meropenem pancultured follow culture. WBC count slowly continues to improve on meropenem. Will continue meropenem as ordered. # Ascending colitis appendix was normal on recent CT scan. Repeat CT with resolution of these findings. Now stopped Levaquin and Flagyl for this colitis # Severe hyponatremia 119 on admission. Continues to improve slowly. Continue to monitor slow rise planned 8-10 per day. Likely hypovolemic hyponatremia. TSH cortisol SPEP UPEP planned. And cortisol level normal at 16.7. Seem to have chronic hyponatremia ranging between 120-130 . Slowly improving. Treated with 3% saline 12/30/2021 Fluid restriction was released with sodium level with slight trend downward today. Added salt tablets. Sodium level better today together with Lasix 20 mg b.i.d.. # BRETT CK level normal creatinine 3.8 IV normal saline nephrology consulted. Baseline creatinine 0.5 likely prerenal. Renal ultrasound with no hydronephrosis. Creatinine about the same. Renal biopsy done 12/29/21. Findings of ATN/pyelonephritis in the renal biopsy. Antibiotic therapy as delineated above. Creatinine Continues to improve. Peaked at 4.2. 2.4 today # Metabolic acidosis on bicarb drip improving # Mild hypoglycemia # Thrombocytopenia no prior history. Platelet count of 53,000. Continues to improve slowly. Will consult horse show judge? TTP diagnosis althoughno schistocytes was seen in the peripheral smear. Director Of Perioperative Services evaluated. Workup in process. LDH is normal. Fibrinogen is high. Thrombocytopenia has resolved now # Elevated LFT particularly Elevated alkaline phosphatase right upper quadrant ultrasound with hepatic steatosis and gallbladder hydrops. Continues to worsen. Recent right upper quadrant ultrasound was negative. Repeat ultrasound as LFT continues to worsen with no acute findings. Repeat CT chest abdomen pelvis reviewed. # COPD/emphysema # Chronic back pain # Generalized anxiety diso
--- NOTE | 2022-01-08 18:44 | WPDONCPN ---
Progress Note: A/P - Additional Plan Normocytic anemia, leukocytosis and thrombocytosis. Patient has a history of thrombocytopenia now resolved. Labs reviewed that showed hit antibody negative and platelet antibody remains pending. RITA negative. 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 Iron studies and LDH was not normal. B12 was elevated. Her anemia secondary to infection and inflammation and mild renal insufficiency. Will give her dose of Procrit 37187 units today. I have provided her my office information for follow-up. If her hemoglobin remains low after complete recovery from the infection then we will perform bone marrow aspiration and biopsy as an outpatient. 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 Kidney biopsy did not show paraproteinemia. Acute renal insufficiency. Secondary to ATN. Renal function slowly improving. Thrombocytosis. This is likely reactive secondary to infection/inflammation. We will order JAK2 mutation testing. Continue baby aspirin. Leukocytosis. Again reactive. WBC elevated but stable. UTI. Patient is on antibiotic treatment. Patient is anxious to go home. From Hematology standpoint she should be able to go home with follow-up with me in next 7-10 days. Patient has my office information. - Time Spent With Patient Total time spent is greater than 50% in coordination of care (as documented) at patient's floor/unit and/or counseling patient: 25 - 35 minutes Subjective Interval history: Normocytic anemia Thrombocytosis Leukocytosis UTI Acute renal insufficiency Thrombocytopenia resolved Review of Systems - Review of Systems Patient is feeling better but remains slightly tired and fatigued. She denies any fevers and chills. She is not eating well as food does not taste well. She denies any bleeding. No other new complaint. - Neurologic Reports system reviewed and no additional complaints, except as documented, Reports weakness, Denies vertigo, Denies syncope, Denies focal weakness, Denies sensory deficit Exam Vital signs: Temp Pulse Resp BP Pulse Ox O2 Del Method 36.6 C 81 16 118/59 L 100 Room Air 01/08/22 13:41 01/08/22 13:41 01/08/22 13:41 01/08/22 13:41 01/08/22 13:41 01/08/22 09:30 Lungs are clear to auscultation bilaterally Cardiovascular regular rate rhythm no murmurs Abdomen soft nontender nondistended bowel sounds are positive Extremities no edema PN: Objective Data - Labs CBC & Chem 7: 01/08/22 05:47 01/08/22 05:47 Labs: Laboratory Results - last 24 hr 01/08/22 01/08/22 05:47 05:47 WBC 12.3 H RBC 2.50 L Hgb 8.3 L Hct 24.8 L MCV 99.2 MCH 33.2 MCHC 33.5 RDW 15.6 H Plt Count 805 H MPV 9.2 Sodium 128 L Potassium 3.6 Chloride 92 L Carbon Dioxide 28 Anion Gap 8 BUN 18 H Creatinine 1.10 H Estim Creat Clear Calc 41 Estimated GFR 50 L Glucose 89 Calcium 8.6 Magnesium 1.4 L
[2022-01-08] MEDS: EPOETIN ALFA-EPBX 20,000 UNITS/ML VIAL 20000 UNITS SUB-Q (20:40)
[2022-01-08 20:57] VITALS: BP 127/59; PULSE 79; RESP 16; TEMP 36.7; O2SAT 100
[2022-01-09] MEDS: HYDROcodone/acetaminophen (*CRX) 5-325 MG TABLET 1 TAB PO ×3 (05:07→21:25)
[2022-01-09] MEDS: LORazepam (*CRX) 0.5 MG TABLET PO ×3 (05:07→21:26)
[2022-01-09] MEDS: METAXALONE 800 MG TABLET PO ×3 (05:07→21:26)
[2022-01-09 05:43] VITALS: BP 127/54; PULSE 82; RESP 16; TEMP 36.7; O2SAT 100
[2022-01-09 05:48] LABS: Hematocrit 26.5 % (37.0-47.0); Mean Corpuscular Hemoglobin 33.5 pg (26-34); Mean Corpuscular Volume 98.5 fl (80-100); Mean Platelet Volume 9.4 fl (7.4-10.4); Platelet Count Result 953 k/mm3 (150-375); Red Blood Count 2.69 M/mm3 (4.2-5.4); Red Cell Distribution Width 15.2 % (11.5-14.5); White Blood Count 12.3 K/mm3 (4.5-10.0)
[2022-01-09 06:08] LABS: Anion Gap 7 mmol/L (8-16); Blood Urea Nitrogen 15 mg/dL (7-17); Calcium 8.6 mg/dL (8.4-10.2); Carbon Dioxide 28 mmol/L (22-30); Chloride 94 mmol/L (98-107); Estimated CRCL calculation 41 ml/min; Estimated Glomerular Filt Rate 50; Glucose 84 mg/dL (65-110); Magnesium 1.4 mg/dL (1.6-2.3); Potassium 3.7 mmol/L (3.4-5.0); Sodium 129 mmol/L (137-145)
[2022-01-09] MEDS: CHOLECALCIFEROL 1,000 UNITS TABLET 2000 UNITS PO (09:04)
[2022-01-09] MEDS: ASCORBIC ACID 500 MG TABLET 1000 MG PO (09:04)
[2022-01-09] MEDS: FAMOTIDINE 20 MG TABLET PO ×2 (09:05→21:26)
[2022-01-09] MEDS: estradioL 1 MG TABLET PO (09:05)
[2022-01-09] MEDS: HEPARIN SODIUM 5,000 UNITS/ML VIAL 5000 UNITS SUB-Q ×2 (09:05→21:25)
[2022-01-09] MEDS: MULTIVITAMINS /C LUTEIN (CENTRUM SILVER) TABLET *BKC 1 TAB PO (09:05)
[2022-01-09] MEDS: VITAMIN E 400 UNIT CAPSULE PO (09:05)
[2022-01-09] MEDS: MAGNESIUM OXIDE 400 MG TABLET PO (09:05)
[2022-01-09] MEDS: ASPIRIN 81 MG ENTERIC TABLET PO (09:05)
[2022-01-09 09:10] VITALS: O2SAT 97
[2022-01-09] MEDS: UMECLIDINIUM/VILANTEROL 62.5-25 MCG ELLIPTA 1 PUFF INHALATION (09:10)
[2022-01-09] MEDS: MAGNESIUM SULF 4 GM/WATER100ML 4 GM/100 ML BAG IVPB (10:23)
--- NOTE | 2022-01-09 10:37 | P.PNNP_ITS ---
Progress Note: A&P Assessment and Plan (1) Acute kidney failure: Qualifiers: Acute renal failure type: unspecified Qualified Code(s): N17.9 - Acute kidney failure, unspecified Code(s): N17.9 - Acute kidney failure, unspecified Status: Acute Assessment and Plan: * normal creatinine at baseline * RENAL BIOPSY = ATN + pyelonephritis * previous evaluation: * normal renal ultrasound * urine electrolytes suggestive of prerenal azotemia * CPK no elevated * renal function continues to improve * continue supportive therapy (2) Hyponatremia: Code(s): E87.1 - Hypo-osmolality and hyponatremia Status: Acute Assessment and Plan: * acute on chronic * baseline sodium level runs ~ 130mmol/L * 119mmol/L on admission * slowly improving with current interventions to date (s/p 3% saline, fluid restriction, lasix and salt tablets) * currently just on salt tabs and fluid restriction * evaluation to date: * normal TSH and cortisol * urine sodium low * imaging of chest and brain negative * SPEP with possible restricted band (M-spike) * serum/urine osmo pending * follow trend with salt tabs and fluid restriction Will continue to follow. Subjective Date/time seen: 01/09/22 10:37 Renal function and sodium remain stable if not better; platelet count continues to rise as noted by AM labs; no apparent acute distress noted at the time of my visit; no events overnight or earlier this morning. Exam Narrative: General: WD/WN female in NAD Heart: normal S1 and S2; no rub Lungs: clear to auscultation Abdomen: soft, nontender, nondistended, positive bowel sounds Extremities: no cyanosis or clubbing; trace edema Skin: warm and dry Objective Data Vital Signs Vital Signs: Vital Signs Temp Pulse Resp BP Pulse Ox O2 Del Method 01/09/22 08:00 Room Air 01/09/22 09:10 97 Room Air 01/09/22 05:43 36.7 C 82 16 127/54 L 100 01/08/22 20:00 Room Air 01/08/22 20:57 36.7 C 79 16 127/59 L 100 Intake/Output Intake/Output: Intake & Output 01/06/22 01/07/22 01/08/22 01/09/22 23:59 23:59 23:59 23:59 Intake Total 1220 1260 1750 780 Output Total 1850 2500 1050 1000 Peaolxf -229 -1240 700 -220 Meds/Results Medications: Active Medications Generic Name Dose Route Start Last Admin Trade Name Freq PRN Reason Stop Dose Admin Hydrocodone Bitart/Acetaminophen 1 tab 12/27/21 00:59 01/09/22 14:08 Hydrocodone/Acetaminophen (*Crx) 5-325 Mg Tablet PO 01/16/22 00:58 1 tab TID PRN Administration Pain Rated 4-6 Albuterol 2 puff 12/27/21 00:59 Albuterol Sulfate (*Sp) Aerosol 1 Puff INHALATION Q4H PRN shortness of breath or wheezing Albuterol 2.5 mg 12/27/21 06:28 Albuterol Sulfate Neb 2.5 Mg/0.5 Ml Inh INHALATION Q6HRT PRN shortness of breath Ascorbic Acid 1,000 mg 01/03/22 09:00 01/09/22 09:04 Ascorbic Acid 500 Mg Tablet PO 1,000 mg DAILY NAHED Administration Aspirin 81 mg 01/07/22 11:05 01/09/22 09:05 Aspirin 81 Mg Enteric Tablet PO 81 mg QAM NAHED Administration Neftaly
--- NOTE | 2022-01-09 10:37 | PM.PNNEP ---
Progress Note: A&P Assessment and Plan (1) Acute kidney failure: Qualifiers: Acute renal failure type: unspecified Qualified Code(s): N17.9 - Acute kidney failure, unspecified Code(s): N17.9 - Acute kidney failure, unspecified Status: Acute Assessment and Plan: normal creatinine at baseline RENAL BIOPSY = ATN + pyelonephritis previous evaluation: normal renal ultrasound urine electrolytes suggestive of prerenal azotemia CPK no elevated renal function continues to improve continue supportive therapy (2) Hyponatremia: Code(s): E87.1 - Hypo-osmolality and hyponatremia Status: Acute Assessment and Plan: acute on chronic baseline sodium level runs ~ 130mmol/L 119mmol/L on admission slowly improving with current interventions to date (s/p 3% saline, fluid restriction, lasix and salt tablets) currently just on salt tabs and fluid restriction evaluation to date: normal TSH and cortisol urine sodium low imaging of chest and brain negative SPEP with possible restricted band (M-spike) serum/urine osmo pending follow trend with salt tabs and fluid restriction Will continue to follow. Subjective Date/time seen: 01/09/22 10:37 Renal function and sodium remain stable if not better; platelet count continues to rise as noted by AM labs; no apparent acute distress noted at the time of my visit; no events overnight or earlier this morning. Exam Narrative: General: WD/WN female in NAD Heart: normal S1 and S2; no rub Lungs: clear to auscultation Abdomen: soft, nontender, nondistended, positive bowel sounds Extremities: no cyanosis or clubbing; trace edema Skin: warm and dry Objective Data Vital Signs Vital Signs: Vital Signs Temp Pulse Resp BP Pulse Ox O2 Del Method 01/09/22 08:00 Room Air 01/09/22 09:10 97 Room Air 01/09/22 05:43 36.7 C 82 16 127/54 L 100 01/08/22 20:00 Room Air 01/08/22 20:57 36.7 C 79 16 127/59 L 100 Intake/Output Intake/Output: Intake & Output 01/06/22 01/07/22 01/08/22 01/09/22 23:59 23:59 23:59 23:59 Intake Total 1220 1260 1750 780 Output Total 1850 2500 1050 1000 Balance -630 -1240 700 -220 Meds/Results Medications: Active Medications Generic Name Dose Route Start Last Admin Trade Name Freq PRN Reason Stop Dose Admin Hydrocodone Bitart/Acetaminophen 1 tab 12/27/21 00:59 01/09/22 14:08 Hydrocodone/Acetaminophen (*Crx) 5-325 Mg Tablet PO 01/16/22 00:58 1 tab TID PRN Administration Pain Rated 4-6 Albuterol 2 puff 12/27/21 00:59 Albuterol Sulfate (*Sp) Aerosol 1 Puff INHALATION Q4H PRN shortness of breath or wheezing Albuterol 2.5 mg 12/27/21 06:28 Albuterol Sulfate Neb 2.5 Mg/0.5 Ml Inh INHALATION Q6HRT PRN shortness of breath Ascorbic Acid 1,000 mg 01/03/22 09:00 01/09/22 09:04 Ascorbic Acid 500 Mg Tablet PO 1,000 mg DAILY NAHED Administration Aspirin 81 mg 01/07/22 11:05 01/09/22 09:05 Aspirin 81 Mg Enteric Tablet PO 81 mg QAM NAHED Administration Atorvastatin Calcium 20 mg 12/27/21 01:20 12/28/21 21:41 Atorvastatin 20 Mg Tablet PO 20 mg HS NAHED Administration Benzonatate 200 mg 12/27/21 01:12 Benzonatate 100 Mg Capsule PO TID PRN Cough Bisacodyl 10 mg 12/30/21 10:27 Bisacodyl 10 Mg Suppository RECTAL QAM PRN Constipation Estradiol 1 mg 12/27/21 09:00 01/09/22 09:05 Estradiol 1 Mg Tablet PO 1 mg DAILY NAHED Administration Famotidine 20 mg 12/29/21 21:00 01/09/22 09:05 Famotidine 20 Mg Tablet PO 20 mg Q12HR NAHED Administration Heparin Sodium (Porcine) 5,000 units 12/30/21 21:00 01/09/22 09:05 Heparin Sodium 5,000 Units/Ml Vial SUB-Q 5,000 units Q12HR NAHED Administration Hydroxyurea 500 mg 01/10/22 09:00 Hydroxyurea (*Chemo) 500 Mg Capsule PO QAM NAHED Hyoscyamine 0.125 mg 12/27/21 00:59 Hyos
--- NOTE | 2022-01-09 12:50 | WPDONCPN ---
Progress Note: A/P - Additional Plan Thrombocytosis. Labs noted. Platelet has increased to 953,000. JAK2 mutation testing was ordered and pending. I will start her on hydroxyurea 500 mg once a day. Continue baby aspirin. Leukocytosis. Stable. Normocytic anemia. Multifactorial secondary to anemia of chronic inflammation and disease as well as kidney disease. Patient received Procrit injection yesterday with improvement in hemoglobin. UTI. Patient is on antibiotic. Acute renal insufficiency. Creatinine stable at 1.1. - Time Spent With Patient Total time spent is greater than 50% in coordination of care (as documented) at patient's floor/unit and/or counseling patient: 15 - 25 minutes Subjective Interval history: Normocytic anemia Thrombocytosis Leukocytosis UTI Acute renal insufficiency Thrombocytopenia resolved Review of Systems - Review of Systems Patient complain of tiredness and fatigue. Denies any bleeding. No melena hematochezia. No fevers and chills. No other new complaints. - Neurologic Reports system reviewed and no additional complaints, except as documented, Reports weakness, Denies vertigo, Denies syncope, Denies focal weakness, Denies sensory deficit Exam Vital signs: Roxanne Turcios. Assessment of coma and impaired consciousness. A practical scale. Lancet 1974; 2:81-4. Narrative: Lungs are clear to auscultation bilaterally Cardiovascular regular rate rhythm no murmurs Abdomen soft nontender nondistended bowel sounds are positive Extremities no edema PN: Objective Data - Labs CBC & Chem 7: 01/09/22 05:30 01/09/22 05:30 Labs: Laboratory Results - last 24 hr 12/29/21 01/09/22 01/09/22 19:34 05:30 05:30 WBC 12.3 H RBC 2.69 L Hgb 9.0 L Hct 26.5 L MCV 98.5 MCH 33.5 MCHC 34.0 RDW 15.2 H Plt Count 953 H MPV 9.4 Sodium 129 L Potassium 3.7 Chloride 94 L Carbon Dioxide 28 Anion Gap 7 L BUN 15 Creatinine 1.10 H Estim Creat Clear Calc 41 Estimated GFR 50 L Glucose 84 Calcium 8.6 Magnesium 1.4 L Direct Plt-Bound IgG Ab see below
[2022-01-09 14:00] VITALS: BP 122/52; PULSE 100; RESP 16; TEMP 36.5; O2SAT 99
[2022-01-09 14:36] LABS: Albumin 53 %; Measured Kappa Chains 7.97 mg/dL (<2.00); Measured Lambda Chains 5.07 mg/dL (<2.00); Pro/Creat Ratio 2658 mg/g creat (<=114); Total Kappa Chains 43.835 mg/24 h
[2022-01-09 16:02] LABS: Anion Gap 7 mmol/L (8-16); Blood Urea Nitrogen 15 mg/dL (7-17); Carbon Dioxide 30 mmol/L (22-30); Chloride 90 mmol/L (98-107); Estimated CRCL calculation 45 ml/min; Estimated Glomerular Filt Rate 56; Glucose 97 mg/dL (65-110); Magnesium 2.9 mg/dL (1.6-2.3); Potassium 3.5 mmol/L (3.4-5.0); Sodium 127 mmol/L (137-145)
[2022-01-09] MEDS: SODIUM CHLORIDE 1 GM TABLET PO (17:42)
[2022-01-09 20:24] VITALS: BP 133/87; PULSE 83; RESP 16; TEMP 36.9; O2SAT 100
[2022-01-10] MEDS: LORazepam (*CRX) 0.5 MG TABLET PO ×3 (05:21→21:16)
[2022-01-10] MEDS: HYDROcodone/acetaminophen (*CRX) 5-325 MG TABLET 1 TAB PO ×3 (05:21→21:15)
[2022-01-10] MEDS: METAXALONE 800 MG TABLET PO ×3 (05:22→21:17)
[2022-01-10 06:00] VITALS: BP 133/58; PULSE 83; RESP 16; TEMP 36.9; O2SAT 97
[2022-01-10 06:43] LABS: Hematocrit 25.1 % (37.0-47.0); Hemoglobin 8.4 g/dL (12.0-15.0); Mean Corpuscular HGB Conc 33.5 g/dl (32-36); Mean Corpuscular Hemoglobin 32.9 pg (26-34); Mean Corpuscular Volume 98.4 fl (80-100); Platelet Count Result 883 k/mm3 (150-375); Red Blood Count 2.55 M/mm3 (4.2-5.4); Red Cell Distribution Width 15.1 % (11.5-14.5); White Blood Count 10.2 K/mm3 (4.5-10.0)
[2022-01-10 06:54] LABS: Anion Gap 8 mmol/L (8-16); Blood Urea Nitrogen 12 mg/dL (7-17); Calcium 8.7 mg/dL (8.4-10.2); Carbon Dioxide 26 mmol/L (22-30); Chloride 95 mmol/L (98-107); Estimated CRCL calculation 50 ml/min; Estimated Glomerular Filt Rate > 60; Glucose 87 mg/dL (65-110); Potassium 3.5 mmol/L (3.4-5.0); Sodium 129 mmol/L (137-145)
[2022-01-10] MEDS: UMECLIDINIUM/VILANTEROL 62.5-25 MCG ELLIPTA 1 PUFF INHALATION (07:41)
[2022-01-10 07:42] VITALS: PULSE 82; O2SAT 96
[2022-01-10] MEDS: estradioL 1 MG TABLET PO (08:59)
[2022-01-10] MEDS: ASPIRIN 81 MG ENTERIC TABLET PO (08:59)
[2022-01-10] MEDS: ASCORBIC ACID 500 MG TABLET 1000 MG PO (08:59)
[2022-01-10] MEDS: FAMOTIDINE 20 MG TABLET PO ×2 (08:59→21:16)
[2022-01-10] MEDS: VITAMIN E 400 UNIT CAPSULE PO (08:59)
[2022-01-10] MEDS: HEPARIN SODIUM 5,000 UNITS/ML VIAL 5000 UNITS SUB-Q ×2 (09:00→21:17)
[2022-01-10] MEDS: MAGNESIUM OXIDE 400 MG TABLET PO (09:00)
[2022-01-10] MEDS: HYDROXYUREA (*CHEMO) 500 MG CAPSULE PO (09:00)
[2022-01-10] MEDS: CHOLECALCIFEROL 1,000 UNITS TABLET 2000 UNITS PO (09:00)
[2022-01-10] MEDS: LORATADINE 10 MG TABLET PO (09:00)
--- NOTE | 2022-01-10 11:02 | PCNFU ---
Nutrition Follow-Up Complete: Inadequate energy intake related to reduced appetite as evidenced by pt report goal: PO intake 75% of meals, plus Ensure compact Patient is meeting current goal. We will continue current goal. Pt current nutrition is Heart Healthy/FR 1400 ml daily. Last recorded weight is 58 kg, stable Bowel Motility:+BM reported 01/09 Labs Reviewed:Na 129, Hct 25.1,Hgb 8.4 Meds Noted:Vit C, Heparin, Vit E, Vit D, Claritin, Pepcid. Skin: WNL Additional Notes: Nutrition follow up, spoke with patient today. Oral Intake has been greater than 75% of meals. Diet supplements of Ensure Compact BID providing an additional 220 kcals and 9 gms protein. Agree with diet orders. Monitoring: Monitor intake, wt, labs. Follow up in 7 days.
--- NOTE | 2022-01-10 13:21 | PM.IMPN ---
Progress Note: A&P Assessment and Plan (1) Acute kidney failure: Qualifiers: Acute renal failure type: unspecified Qualified Code(s): N17.9 - Acute kidney failure, unspecified Code(s): N17.9 - Acute kidney failure, unspecified Status: Acute Assessment and Plan: Improved %period% creatinine 0.9 (2) Chronic hyponatremia: Code(s): E87.1 - Hypo-osmolality and hyponatremia Status: Acute Assessment and Plan: Sodium 129. Apparently this is baseline (3) Urinary tract infection: Qualifiers: Hematuria presence: with hematuria Urinary tract infection type: acute cystitis Qualified Code(s): N30.01 - Acute cystitis with hematuria Code(s): N39.0 - Urinary tract infection, site not specified Status: Acute Assessment and Plan: Continue IV antibiotics (4) COPD with emphysema: Code(s): J43.9 - Emphysema, unspecified Status: Acute Assessment and Plan: Stable on chronic (5) Chronic obstructive pulmonary disease: Qualifiers: COPD type: unspecified COPD Qualified Code(s): J44.9 - Chronic obstructive pulmonary disease, unspecified Code(s): J44.9 - Chronic obstructive pulmonary disease, unspecified Status: Acute Assessment and Plan: Stable and chronic Subjective Date/time seen: 01/10/22 13:21 No new complaints Exam Narrative: General: alert and oriented Psych: appropriate mood nad affect Eyes: PERRLA Neck: Trachea midline, no new lesions Skin: no changes Lungs: CTA Cardiac: Normal S1,S2, no MGR ABD: soft, nd, nt, nbs Ext: no new lesions, no cce Vasc: Pulses intact Objective Data Vital Signs Vital Signs: Vital Signs - 24 hr 01/09/22 14:00 01/09/22 20:24 01/09/22 20:00 Temperature 97.7 F 98.4 F Pulse Rate 100 83 Respiratory Rate 16 16 Blood Pressure 122/52 L 133/87 Pulse Oximetry 99 100 Oxygen Delivery Room Air 01/10/22 06:00 01/10/22 07:42 01/10/22 08:05 Temperature 98.4 F Pulse Rate 83 82 Respiratory Rate 16 Blood Pressure 133/58 L Pulse Oximetry 97 96 Oxygen Delivery Room Air Room Air Intake/Output Intake/Output: Intake & Output 01/07/22 01/08/22 01/09/22 01/10/22 23:59 23:59 23:59 23:59 Intake Total 1260 1750 1420 940 Output Total 2500 1050 1950 750 Balance -1240 700 -530 190 Meds/Results Medications: Active Medications Generic Name Dose Route Start Last Admin Trade Name Freq PRN Reason Stop Dose Admin Hydrocodone Bitart/Acetaminophen 1 tab 12/27/21 00:59 01/10/22 05:21 Hydrocodone/Acetaminophen (*Crx) 5-325 Mg Tablet PO 01/16/22 00:58 1 tab TID PRN Administration Pain Rated 4-6 Albuterol 2 puff 12/27/21 00:59 Albuterol Sulfate (*Sp) Aerosol 1 Puff INHALATION Q4H PRN shortness of breath or wheezing Albuterol 2.5 mg 12/27/21 06:28 Albuterol Sulfate Neb 2.5 Mg/0.5 Ml Inh INHALATION Q6HRT PRN shortness of breath Ascorbic Acid 1,000 mg 01/03/22 09:00 01/10/22 08:59 Ascorbic Acid 500 Mg Tablet PO 1,000 mg DAILY NAHED Administration Aspirin 81 mg 01/07/22 11:05 01/10/22 08:59 Aspirin 81 Mg Enteric Tablet PO 81 mg QAM NAHED Administration Atorvastatin Calcium 20 mg 12/27/21 01:20 12/28/21 21:41 Atorvastatin 20 Mg Tablet PO 20 mg HS NAHED Administration Benzonatate 200 mg 12/27/21 01:12 Benzonatate 100 Mg Capsule PO TID PRN Cough Bisacodyl 10 mg 12/30/21 10:27 Bisacodyl 10 Mg Suppository RECTAL QAM PRN Constipation Estradiol 1 mg 12/27/21 09:00 01/10/22 08:59 Estradiol 1 Mg Tablet PO 1 mg DAILY NAHED Administration Famotidine 20 mg 12/29/21 21:00 01/10/22 08:59 Famotidine 20 Mg Tablet PO 20 mg Q12HR NAHED Administration Heparin Sodium (Porcine) 5,000 units 12/30/21 21:00 01/10/22 09:00 Heparin Sodium 5,000 Units/Ml Vial SUB-Q 5,000 units Q12HR NAHED Administration Hydroxyurea 500 mg 01/10/22
[2022-01-10 14:00] VITALS: BP 122/46; PULSE 92; RESP 20; TEMP 36.8; O2SAT 98
[2022-01-10 15:11] LABS: Protein,total, 24 Hr Ur 996 mg/24h
--- NOTE | 2022-01-10 16:16 | PM.PNNEP ---
Progress Note: A&P Assessment and Plan (1) Acute kidney failure: Qualifiers: Acute renal failure type: unspecified Qualified Code(s): N17.9 - Acute kidney failure, unspecified Code(s): N17.9 - Acute kidney failure, unspecified Status: Acute Assessment and Plan: resolved normal creatinine at baseline RENAL BIOPSY = ATN + pyelonephritis previous evaluation: normal renal ultrasound urine electrolytes suggestive of prerenal azotemia CPK no elevated renal function continues to improve continue supportive therapy (2) Hyponatremia: Code(s): E87.1 - Hypo-osmolality and hyponatremia Status: Acute Assessment and Plan: acute on chronic baseline sodium level runs ~ 130mmol/L 119mmol/L on admission slowly improving with current interventions to date (s/p 3% saline, fluid restriction, lasix and salt tablets) currently just on salt tabs and fluid restriction evaluation to date: normal TSH and cortisol urine sodium low imaging of chest and brain negative SPEP with possible restricted band (M-spike) serum/urine osmo pending follow trend with salt tabs and fluid restriction Will continue to intermittently. Subjective Date/time seen: 01/10/22 16:16 No new issues or complaints voiced at this time; no events overnight or earlier this AM; started on hydroxyurea given worsening thrombocytosis; no apparent distress to report. Exam Narrative: General: WD/WN female in NAD Heart: normal S1 and S2; no rub Lungs: clear to auscultation Abdomen: soft, nontender, nondistended, positive bowel sounds Extremities: no cyanosis or clubbing; trace edema Skin: warm and intact Objective Data Vital Signs Vital Signs: Vital Signs Temp Pulse Resp BP Pulse Ox O2 Del Method 01/10/22 14:00 36.8 C 92 20 122/46 L 98 01/10/22 08:05 Room Air 01/10/22 07:42 82 96 Room Air 01/10/22 06:00 36.9 C 83 16 133/58 L 97 01/09/22 20:00 Room Air 01/09/22 20:24 36.9 C 83 16 133/87 100 Intake/Output Intake/Output: Intake & Output 01/07/22 01/08/22 01/09/22 01/10/22 23:59 23:59 23:59 23:59 Intake Total 1260 1750 1420 1280 Output Total 2500 1050 1950 1100 Balance -1240 700 -530 180 Meds/Results Medications: Active Medications Generic Name Dose Route Start Last Admin Trade Name Freq PRN Reason Stop Dose Admin Hydrocodone Bitart/Acetaminophen 1 tab 12/27/21 00:59 01/10/22 13:35 Hydrocodone/Acetaminophen (*Crx) 5-325 Mg Tablet PO 01/16/22 00:58 1 tab TID PRN Administration Pain Rated 4-6 Albuterol 2 puff 12/27/21 00:59 Albuterol Sulfate (*Sp) Aerosol 1 Puff INHALATION Q4H PRN shortness of breath or wheezing Albuterol 2.5 mg 12/27/21 06:28 Albuterol Sulfate Neb 2.5 Mg/0.5 Ml Inh INHALATION Q6HRT PRN shortness of breath Ascorbic Acid 1,000 mg 01/03/22 09:00 01/10/22 08:59 Ascorbic Acid 500 Mg Tablet PO 1,000 mg DAILY NAHED Administration Aspirin 81 mg 01/07/22 11:05 01/10/22 08:59 Aspirin 81 Mg Enteric Tablet PO 81 mg QAM NAHED Administration Atorvastatin Calcium 20 mg 12/27/21 01:20 12/28/21 21:41 Atorvastatin 20 Mg Tablet PO 20 mg HS NAHED Administration Benzonatate 200 mg 12/27/21 01:12 Benzonatate 100 Mg Capsule PO TID PRN Cough Bisacodyl 10 mg 12/30/21 10:27 Bisacodyl 10 Mg Suppository RECTAL QAM PRN Constipation Estradiol 1 mg 12/27/21 09:00 01/10/22 08:59 Estradiol 1 Mg Tablet PO 1 mg DAILY NAHED Administration Famotidine 20 mg 12/29/21 21:00 01/10/22 08:59 Famotidine 20 Mg Tablet PO 20 mg Q12HR NAHED Administration Heparin Sodium (Porcine) 5,000 units 12/30/21 21:00 01/10/22 09:00 Heparin Sodium 5,000 Units/Ml Vial SUB-Q 5,000 units Q12HR NAHED Administration Hydroxyurea 500 mg 01/10/22 09:00 01/10/22 09:00 Hydroxyurea (*Chemo) 500 Mg Capsule PO 500 mg QA
--- NOTE | 2022-01-10 16:16 | P.PNNP_ITS ---
Progress Note: A&P Assessment and Plan (1) Acute kidney failure: Qualifiers: Acute renal failure type: unspecified Qualified Code(s): N17.9 - Acute kidney failure, unspecified Code(s): N17.9 - Acute kidney failure, unspecified Status: Acute Assessment and Plan: * resolved * normal creatinine at baseline * RENAL BIOPSY = ATN + pyelonephritis * previous evaluation: * normal renal ultrasound * urine electrolytes suggestive of prerenal azotemia * CPK no elevated * renal function continues to improve * continue supportive therapy (2) Hyponatremia: Code(s): E87.1 - Hypo-osmolality and hyponatremia Status: Acute Assessment and Plan: * acute on chronic * baseline sodium level runs ~ 130mmol/L * 119mmol/L on admission * slowly improving with current interventions to date (s/p 3% saline, fluid restriction, lasix and salt tablets) * currently just on salt tabs and fluid restriction * evaluation to date: * normal TSH and cortisol * urine sodium low * imaging of chest and brain negative * SPEP with possible restricted band (M-spike) * serum/urine osmo pending * follow trend with salt tabs and fluid restriction Will continue to intermittently. Subjective Date/time seen: 01/10/22 16:16 No new issues or complaints voiced at this time; no events overnight or earlier this AM; started on hydroxyurea given worsening thrombocytosis; no apparent dist ress to report. Exam Narrative: General: WD/WN female in NAD Heart: normal S1 and S2; no rub Lungs: clear to auscultation Abdomen: soft, nontender, nondistended, positive bowel sounds Extremities: no cyanosis or clubbing; trace edema Skin: warm and intact Objective Data Vital Signs Vital Signs: Vital Signs Temp Pulse Resp BP Pulse Ox O2 Del Method 01/10/22 14:00 36.8 C 92 20 122/46 L 98 01/10/22 08:05 Room Air 01/10/22 07:42 82 96 Room Air 01/10/22 06:00 36.9 C 83 16 133/58 L 97 01/09/22 20:00 Room Air 01/09/22 20:24 36.9 C 83 16 133/87 100 Intake/Output Intake/Output: Intake & Output 01/07/22 01/08/22 01/09/22 01/10/22 23:59 23:59 23:59 23:59 Intake Total 1260 1750 1420 1280 Output Total 2500 1050 1950 1100 Balance -1240 700 -530 180 Meds/Results Medications: Active Medications Generic Name Dose Route Start Last Admin Trade Name Freq PRN Reason Stop Dose Admin Hydrocodone Bitart/Acetaminophen 1 tab 12/27/21 00:59 01/10/22 13:35 Hydrocodone/Acetaminophen (*Crx) 5-325 Mg Tablet PO 01/16/22 00:58 1 tab TID PRN Administration Pain Rated 4-6 Albuterol 2 puff 12/27/21 00:59 Albuterol Sulfate (*Sp) Aerosol 1 Puff INHALATION Q4H PRN shortness of breath or wheezing Albuterol 2.5 mg 12/27/21 06:28 Albuterol Sulfate Neb 2.5 Mg/0.5 Ml Inh INHALATION Q6HRT PRN shortness of breath Ascorbic Acid 1,000 mg 01/03/22 09:00 01/10/22 08:59 Ascorbic Acid 500 Mg Tablet PO 1,000 mg DAILY NAHED Administration Aspirin 81 mg 01/07/22 11:05 01/10/22 08:59 Aspirin 81 Mg Enteric Tablet PO 81 mg
[2022-01-10] MEDS: SODIUM CHLORIDE 1 GM TABLET PO (16:46)
[2022-01-10 19:36] VITALS: BP 134/67; PULSE 76; RESP 18; TEMP 36.8; O2SAT 100
--- NOTE | 2022-01-10 22:04 | PC.NURSE ---
PT REFUSES COMPRESSION STOCKINGS.
[2022-01-11 05:08] VITALS: BP 135/67; PULSE 90; RESP 18; TEMP 36.7; O2SAT 97
[2022-01-11] MEDS: HYDROcodone/acetaminophen (*CRX) 5-325 MG TABLET 1 TAB PO (05:35)
[2022-01-11] MEDS: METAXALONE 800 MG TABLET PO (05:35)
[2022-01-11] MEDS: LORazepam (*CRX) 0.5 MG TABLET PO (05:35)
[2022-01-11] MEDS: ASCORBIC ACID 500 MG TABLET 1000 MG PO (08:57)
[2022-01-11] MEDS: CHOLECALCIFEROL 1,000 UNITS TABLET 2000 UNITS PO (08:58)
[2022-01-11] MEDS: HEPARIN SODIUM 5,000 UNITS/ML VIAL 5000 UNITS SUB-Q (08:58)
[2022-01-11] MEDS: VITAMIN E 400 UNIT CAPSULE PO (08:58)
[2022-01-11] MEDS: MAGNESIUM OXIDE 400 MG TABLET PO (08:58)
[2022-01-11] MEDS: FAMOTIDINE 20 MG TABLET PO (08:58)
[2022-01-11] MEDS: estradioL 1 MG TABLET PO (08:58)
[2022-01-11] MEDS: ASPIRIN 81 MG ENTERIC TABLET PO (08:58)
[2022-01-11] MEDS: HYDROXYUREA (*CHEMO) 500 MG CAPSULE PO (08:58)
[2022-01-11 09:49] LABS: Hematocrit 29.4 % (37.0-47.0); Hemoglobin 9.5 g/dL (12.0-15.0); Mean Corpuscular HGB Conc 32.3 g/dl (32-36); Mean Corpuscular Hemoglobin 32.6 pg (26-34); Mean Platelet Volume 9.1 fl (7.4-10.4); Platelet Count Result 1033 k/mm3 (150-375); Red Blood Count 2.91 M/mm3 (4.2-5.4); Red Cell Distribution Width 15.3 % (11.5-14.5); White Blood Count 11.5 K/mm3 (4.5-10.0)
[2022-01-11 10:27] LABS: Anion Gap 10 mmol/L (8-16); Blood Urea Nitrogen 9 mg/dL (7-17); Calcium 9.1 mg/dL (8.4-10.2); Carbon Dioxide 27 mmol/L (22-30); Chloride 94 mmol/L (98-107); Estimated CRCL calculation 45 ml/min; Estimated Glomerular Filt Rate 56; Glucose 95 mg/dL (65-110); Potassium 3.6 mmol/L (3.4-5.0); Sodium 131 mmol/L (137-145)
--- NOTE | 2022-01-11 12:17 | PM.DS ---
DS: Admitting Diagnosis Discharge Date January 11, 2022 Admitting Diagnosis UTI, sepsis on admission, thrombocytosis DS: Summary Hospital Course Hospital Course: Patient was admitted for sepsis and found have urinary tract infection. Patient was treated with imipenem resistant E coli. She will be discharged on Bactrim for 5 more days. Also to note the patient had some issues with her platelet count. She had some thrombocytosis and Ricky 2 mutation was sent off. Platelet level has been increasing but stabilized. Hematology was consulted. Patient will be followed up with Hem on discharge. Patient will also be on hydroxy urea and discharge. also to oceans hyponatremia which is chronic should be to put on sodium chloride tabs on discharge. Follow-up Nephrology. Time Spent with Patient Time attestation: Total time spent providing and/or coordinating discharge services: DS: Data Data Completed and Pending Labs on day of discharge: Labs from last 24 hours 01/11/22 01/11/22 12/30/21 09:37 09:37 08:18 WBC 11.5 H RBC 2.91 L Hgb 9.5 L Hct 29.4 L MCV 101.0 H MCH 32.6 MCHC 32.3 RDW 15.3 H Plt Count 1033 H MPV 9.1 [id number] Activity Intrp Sodium 131 L Potassium 3.6 Chloride 94 L Carbon Dioxide 27 Anion Gap 10 BUN 9 Creatinine 1.00 Estim Creat Clear Calc 45 Estimated GFR 56 L Glucose 95 Calcium 9.1 U Protein 24 Hr Presump 996 Ur LOLA Interpret 24 hr Not Reportable [facility] LC 12/29/21 19:34 WBC RBC Hgb Hct MCV MCH MCHC RDW Plt Count MPV [id number] Activity Intrp Not Reportable Sodium Potassium Chloride Carbon Dioxide Anion Gap BUN Creatinine Estim Creat Clear Calc Estimated GFR Glucose Calcium U Protein 24 Hr Presump Ur LOLA Interpret 24 hr [facility] LC Discharge Plan Discharge Attending physician on discharge: Katia Luke Consulting providers: Yenni Duarte ; Alexis Schultz ; Elia Escobedo Discharging Clinician: Katia Luke Patient Disposition: Home, Self-Care Activity: as tolerated Diet: renal Discharge Instructions: patient will have a renal function lab on 01/05/2022 and the labs will be followed by Dr. Schultz, patient to follow-up with Dr. Schultz as scheduled, patient to follow-up with her primary care provider soon as possible, instructed if any symptoms worsen to go to nearest emergency department. Care Coordination: patient to have outpatient therapy for continued therapy at discharge. Stand Alone Forms: General Discharge Information Follow-up/Referrals: Elia Escobedo MD [Physician] - Carlos Alcala DO [Primary Care Provider] - Alexis Schultz MD [Physician] - Discharge Medications: New metaxalone [Skelaxin] 800 mg Tablet 800 mg PO TID PRN (Reason: Muscle Pain) Qty: 21 0RF aspirin 81 mg Tablet,Delayed Release (Dr/Ec) 81 mg PO QAM 30 Days Qty: 30 0RF sodium chloride 1 gram Tablet 1 g PO DAILY Qty: 30 0RF hydroxyurea 500 mg Capsule 500 mg PO BID 30 Days Qty: 60 0RF sulfamethoxazole-trimethoprim [Bactrim DS] 800-160 mg tablet 2 tablet PO Q12H Qty: 20 0RF Continued ascorbic acid (vitamin C) 500 mg Tablet 1,000 mg PO DAILY Anoro Ellipta 62.5-25 mcg/actuation Blister With Device 1 inh INHALATION DAILY benzonatate 200 mg capsule 200 mg PO TID PRN (Reason: Cough) cholecalciferol (vitamin D3) 25 mcg (1,000 unit) tablet 50 mcg PO DAILY estradiol 1 mg Tablet 1 mg PO DAILY hydrocodone-acetaminophen 5-325 mg tablet 1 tablet PO TID PRN (Reason: pain) vitamin E 400 unit Capsule 400 unit PO DAILY loratadine [Claritin] 10 mg Tablet 10 mg PO DAILY PRN (Reason: Allergy Symptoms) Centrum Complete 18-400 mg-mcg Tablet 1 tablet PO WEEKLY albuterol sulfate 90 mcg/actuation HFA aerosol inhaler 2 puff inhalation Q4H PRN (Reason: short
[2022-01-15 11:38] LABS: CALR Exon 9 Mutation Not Detected (Not Detected); CSF3R Exon 14/17 Mutation Not Detected (Not Detected); Clinical Indication Not Given; JAK2 Exon 12 Mutation Not Detected (Not Detected); JAK2 V617F Mutation Not Detected (Not Detected); MPL Exon 10 Mutation Not Detected (Not Detected); Specimen Source Blood
== END 2022-01-11 13:50 | disposition home or self-care (01) | DRG 871 ==
LOC: ANHED 19:15 → ANHIMU 20:13 → ANH3MED 01-02 21:58
PROVIDERS: Family Medicine; Internal Medicine; Internal Medicine Hematology & Oncology; Internal Medicine Nephrology; Physician Assistant; Admitting Provider Internal Medicine; Emergency Provider Emergency Medicine; PCP Internal Medicine; Visit Provider Chiropractor
DX: A41.9 Sepsis, unspecified organism (principal); N17.0 Acute kidney failure with tubular necrosis; N30.01 Acute cystitis with hematuria; N12 Tubulo-interstitial nephritis, not specified as acute or chronic; E87.1 Hypo-osmolality and hyponatremia; E87.2 Acidosis; K82.1 Hydrops of gallbladder; K52.89 Other specified noninfective gastroenteritis and colitis; E86.0 Dehydration; J43.9 Emphysema, unspecified; K21.9 Gastro-esophageal reflux disease without esophagitis; E55.9 Vitamin D deficiency, unspecified; F41.1 Generalized anxiety disorder; D64.89 Other specified anemias; D69.6 Thrombocytopenia, unspecified; R11.2 Nausea with vomiting, unspecified; Z20.822 Contact with and (suspected) exposure to COVID-19; R41.82 Altered mental status, unspecified; E16.2 Hypoglycemia, unspecified; D75.838 Other thrombocytosis; R60.0 Localized edema; K76.0 Fatty (change of) liver, not elsewhere classified; R74.01 Elevation of levels of liver transaminase levels; R63.0 Anorexia; R53.1 Weakness; K59.00 Constipation, unspecified; R19.5 Other fecal abnormalities; G89.29 Other chronic pain; M54.9 Dorsalgia, unspecified; Z87.891 Personal history of nicotine dependence; Z90.710 Acquired absence of both cervix and uterus
CPT/HCPCS: 36415; 36600; 50200; 70450; 71046; 71250; 74176; 76705; 76775; 76942; 80048; 80053; 80069; 80307; 81001; 81003; 81219; 81270; 81402; 81403; 81479; 82140; 82274; 82375; 82533; 82550; 82570; 82607; 82728; 82746; 82805; 83050; 83540; 83550; 83605; 83615; 83690; 83735; 83883; 83930; 83935; 84100; 84155; 84156; 84165; 84295; 84300; 84443; 84540; 85025; 85027; 85055; 85384; 85397; 85610; 85730; 85999; 86022; 86023; 86038; 86140; 86160; 86162; 86334; 86335; 87040; 87077; 87086; 87186; 87426; 87804; 88300; 88329; 94640; 96361; 96365; 96375; 96376; 97110; 97116; 97161; 97165; 97530; 97535; 99285; A9270; C9803; G0378; J0696; J0743; J1644; J1956; J2185; J2405; J2543; J3475; J7030; J7070; J7131; Q5105; U0003; U0005

== ENCOUNTER → 2022-04-06 10:03 | Outpatient (CLI) | payer BC, SELFPAY ==
--- NOTE | ~2022-04-06 | DEXA_ITS ---
Bone Density Report Name: NANY BEAR Age: 66 Sex: Female Ethnicity: White Date of : 1955 Indication: monitoring treatment; parental hip fracture; height loss; prior fracture; hysterectomy; secondary osteoporosis; postmenopausal Referring Provider: Millicnet, Debbie Study: Bone densitometry was performed. Exam Date: April 06, 2022 Accession number: [id number] Bone Density: Region BMD T-score Z-score Classification AP Spine (L1, L2, L4) 1.415 3.5 5.2 Normal Femoral Neck (Left) 0.958 1.0 2.5 Normal Total Hip (Left) 1.200 2.1 3.3 Normal Femoral Neck (Right) 0.917 0.6 2.1 Normal Total Hip (Right) 1.112 1.4 2.6 Normal Total Hip Mean 1.156 1.8 3.0 Normal World Health Organization criteria for BMD impression classify patients as: Normal (T-score at or above -1.0), Osteopenia (T-score between -1.0 and -2.5), or Osteoporosis (T-score at or below -2.5). 10-year Fracture Risk: FRAX not reported because: All T-scores for Spine Total, Hip Total, Femoral Neck at or above -1.0 Prior hip or vertebral fracture Treated for osteoporosis Previous Exams: Region Exam Age BMD T-score BMD Change BMD Change Date g/cm2 vs Baseline vs Previous AP Spine(L1, L2, L4) 04/06/2022 66 1.415 3.5 0.225* 0.156* 04/22/2015 59 1.259 2.0 0.070* 0.060* 05/10/2012 56 1.199 1.5 0.010 0.030* 06/16/2007 51 1.169 1.2 -0.020 -0.020 05/03/2004 48 1.189 1.4 Total Hip(Left) 04/06/2022 66 1.200 2.1 -0.033* 0.002 12/30/2019 64 1.198 2.1 -0.034* 0.028* 04/22/2015 59 1.170 1.9 -0.062* -0.025 05/10/2012 56 1.196 2.1 -0.037* 0.056* 06/16/2007 51 1.140 1.6 -0.093* -0.093* 05/03/2004 48 1.232 2.4 Total Hip(Right) 04/06/2022 66 1.112 1.4 -0.126* -0.040* 12/30/2019 64 1.152 1.7 -0.087* -0.023 04/22/2015 59 1.175 1.9 -0.064* 0.026 05/10/2012 56 1.149 1.7 -0.090* 0.019 06/16/2007 51 1.130 1.5 -0.109* -0.109* 05/03/2004 48 1.238 2.4 *Denotes significance at 95% confidence level, LSC for AP Spine = 0.022 g/cm2, LSC for Total Hip = 0.027 g/cm2 Clinical Information Provided by Patient: Have had a previous hip or vertebral fracture Has had a low trauma fracture Parent has had a hip fracture Has secondary
== END ==
PROVIDERS: Visit Provider Nurse Practitioner
DX: Z78.0 Asymptomatic menopausal state (principal)
CPT/HCPCS: 77080

== ENCOUNTER 2022-05-15 14:59 | Outpatient (CLI) | payer BC, SELFPAY ==
[2022-05-15 15:09] LABS: Hematocrit 29.7 % (37.0-47.0); Hemoglobin 10.5 g/dL (12.0-15.0); Mean Corpuscular HGB Conc 35.4 g/dl (32-36); Mean Corpuscular Hemoglobin 33.5 pg (26-34); Mean Corpuscular Volume 94.9 fl (80-100); Mean Platelet Volume 8.3 fl (7.4-10.4); Platelet Count Result 315 k/mm3 (150-375); Red Blood Count 3.13 M/mm3 (4.2-5.4); White Blood Count 5.9 K/mm3 (4.5-10.0)
== END 2022-05-15 15:00 | disposition home or self-care (01) ==
LOC: ANHLAB 15:00
PROVIDERS: Visit Provider Internal Medicine Hematology & Oncology
DX: D64.9 Anemia, unspecified (principal)
CPT/HCPCS: 36415; 85027

== ENCOUNTER 2022-05-19 13:48 | Emergency (ER) | payer BC, SELFPAY ==
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
[2022-05-19 14:17] VITALS: BP 96/63; PULSE 126; RESP 24; TEMP 36.8; O2SAT 96
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
== END 2022-05-19 16:15 | disposition home or self-care (01) ==
PROVIDERS: Emergency Provider Nurse Practitioner Family; PCP Internal Medicine
DX: J18.9 Pneumonia, unspecified organism (principal); Z20.822 Contact with and (suspected) exposure to COVID-19; Z87.891 Personal history of nicotine dependence; K21.9 Gastro-esophageal reflux disease without esophagitis; J44.9 Chronic obstructive pulmonary disease, unspecified; E55.9 Vitamin D deficiency, unspecified
CPT/HCPCS: 71046; 71110; 87426; 87804; 99213; C9803; G0463

== ENCOUNTER 2022-05-21 16:06 | Observation (INO) | payer BC, SELFPAY ==
[2022-05-21] VITALS (18 sets, daily range): BP systolic 112–153; BP diastolic 60–86; PULSE 72–98; RESP 15–24; TEMP 36.5; O2SAT 95–100
--- NOTE | ~2022-05-21 | XR_ITS ---
Clinical Indication: Pneumonia PA and lateral views of the chest: Comparison: 05/19/2022 Findings: Extensive right lung consolidation present. Left lung clear. Cardiomediastinal silhouette is within normal limits. Bones and soft tissues are unremarkable. Impression: Right lower lobe pneumonia, similar to mildly worsened from prior exam. Reviewed, dictated and finalized at [facility]. [employer] ERP DEVELOPER Impression: Right lower lobe pneumonia, similar to mildly worsened from prior exam.
--- NOTE | ~2022-05-21 | CT_ITS ---
EXAMINATION: CTA chest PE protocol DATE: 05/21/2022 21:00 INDICATION: Shortness of breath. Elevated d-dimer. TECHNIQUE: Computed tomography angiography (CTA) of the chest was performed with 100 mL Omnipaque-350 intravenous contrast timed to evaluate the pulmonary arteries. Coronal maximum intensity projection 3D-reconstructions were created by the technologist. Automated exposure control and iterative reconst ruction technique were employed. Exam dose: 150.51 mGy-cm total exam DLP. COMPARISON: 05/21/2022 PA and lateral chest. FINDINGS: There is diagnostic contrast enhancement of the pulmonary arteries and no evidence of pulmo nary embolism. No thoracic aortic aneurysm or dissection. Normal heart size. No pericardial effusion. No hilar or mediastinal mass lesion or lymphadenopathy. Moderately prominent emphysematous changes of the lungs. There is prominent interlobular septal soft tissue thickening and infiltrate and areas of consolidati on involving the right lower lobe, likely due to pneumonia no obstructing endobronchial lesion is not ed. No suspicious osteolytic or osteoblastic lesions. IMPRESSION: Right lower lobe pneumonia Emphysema No evidence of pulmonary embolism Reviewed, dictated and finalized at [facility]. Reviewed, dictated and finalized at [facility]. ISHING DIRECTOR
[2022-05-21 18:18] LABS: Hematocrit 30.4 % (37.0-47.0); Hemoglobin 10.6 g/dL (12.0-15.0); Mean Corpuscular HGB Conc 34.9 g/dl (32-36); Mean Corpuscular Hemoglobin 32.8 pg (26-34); Mean Corpuscular Volume 94.1 fl (80-100); Mean Platelet Volume 9.4 fl (7.4-10.4); Platelet Count Result 323 k/mm3 (150-375); Red Blood Count 3.23 M/mm3 (4.2-5.4); Red Cell Distribution Width 12.1 % (11.5-14.5); White Blood Count 15.1 K/mm3 (4.5-10.0)
[2022-05-21 18:34] LABS: Alanine Aminotransferase 27 U/L (6-35); Albumin Level 3.7 g/dL (3.5-5.1); Alkaline Phosphatase 196 U/L (38-126); Anion Gap 13 mmol/L (8-16); Aspartate Amino Transferase 56 U/L (14-36); Bilirubin,Total 0.7 mg/dL (0.2-1.3); Blood Urea Nitrogen 22 mg/dL (7-17); Calcium 8.9 mg/dL (8.4-10.2); Carbon Dioxide 19 mmol/L (22-30); Chloride 91 mmol/L (98-107); Estimated CRCL calculation 29 ml/min; Estimated Glomerular Filt Rate 35; Glucose 85 mg/dL (65-110); Potassium 2.8 mmol/L (3.4-5.0); Sodium 123 mmol/L (137-145)
--- NOTE | 2022-05-21 18:37 | ECG_ITS ---
Measurements Intervals [place] Rate: 81 P: 75 VA: 161 QRS: 11 QRSD: 96 T: 12 QT: 371 QTc: 431 Interpretive Statements SINUS RHYTHM POSSIBLE LEFT ATRIAL ENLARGEMENT [-0.1mV P WAVE IN V1/V2] COMPARED TO ECG 05/28/2021 09:35:10 SINUS RHYTHM NOW PRESENT Electronically Signed On 05-22-2022 15:30:03 [employer] by Michael Scherer M.D.
--- NOTE | 2022-05-21 18:38 | PC.NURSE ---
paty medrano to get an ekg on pt d/t potassium of 2.8
[2022-05-21 18:52] LABS: Band Neutrophils Percent 6 % (0-6); Eosinophils Absolute Manual 0.15 K/mm3 (0.02-0.5); Eosinophils Percent Manual 1 % (0-4); Lymphocytes Absolute Manual 1.35 K/mm3 (1.1-4.5); Monocytes Absolute Manual 2.41 K/mm3 (0.1-0.90); Monocytes Percent Manual 16 % (3-9); Neutrophils Absolute Manual 11.17 K/mm3 (1.7-7.2); Neutrophils Percent Manual 68 % (46-73); Platelet Estimate Adequate (Adequate); Schistocytes None Seen (NORMAL); Total Cells Counted 100
[2022-05-21 18:53] LABS: Influenza A QL RT-PCR Negative (Negative); Influenza B QL RT-PCR Negative (Negative); SARS-CoV-2 RNA PCR Negative
--- NOTE | 2022-05-21 19:05 | ED.GENADULT ---
HPI - General Adult General Chief complaint: Upper Respiratory Infection <Alma Oliver PA-C - Last Filed: 05/22/22 00:23> Stated complaint: cough, chills, sob <Alma Oliver PA-C - Last Filed: 05/22/22 00:23> Time Seen by Provider: 05/21/22 18:51 <MAY Waters Last Filed: 05/22/22 00:23> Source: patient <MAY Waters Last Filed: 05/22/22 00:23> Mode of arrival: ambulatory <MAY Waters Last Filed: 05/22/22 00:23> Limitations: no limitations <MAY Waters Last Filed: 05/22/22 00:23> History of Present Illness HPI narrative: Patient is a 66-year-old female who presents the ED with report of shortness of breath, cough. Patient reports she developed chills, subjective fever, productive cough a few days ago. She is seen at an urgent care 2 days ago and diagnosed with right lower lobe pneumonia. She was started on azithromycin and Augmentin. Patient reports she has not improved since starting the antibiotics. She complains of generalized weakness, worsening cough, worsening shortness of breath. She does have a history of COPD and has been using her inhalers and nebulizer machines at home with minimal relief. She reports having chest wall pain with coughing, but denies significant chest pain at rest. She denies having fever today. Denies nausea, vomiting, abdominal pain, BLE pain or edema. <Alma Oliver PA-C - Last Filed: 05/22/22 00:23> Related Data Home medications: Home Medications Medication Instructions Recorded Confirmed estradiol 1 mg tablet 1 mg PO DAILY 11/25/19 05/22/22 loratadine 10 mg tablet (Claritin) 10 mg PO DAILY PRN Allergy Symptoms 05/28/21 05/22/22 multivitamin-ferrous 1 tablet PO DAILY 05/28/21 05/22/22 fumarate-folic acid 18 mg-400 mcg tablet (Centrum Complete) vitamin E 268 mg (400 unit) capsule 400 unit PO DAILY 05/28/21 05/22/22 ascorbic acid (vitamin C) 500 mg 1,000 mg PO DAILY 12/26/21 05/22/22 tablet ascorbic acid 90 mg-zinc oxide 50 1 cap PO DAILY 05/22/22 05/22/22 mg capsule calcium carb-vitamin D3 ER 600 mg 2 tablet PO DAILY 05/22/22 05/22/22 (1,500 mg)-500 unit tablet,ER 24 hr cholecalciferol (vitamin D3) 50 50 mcg PO DAILY 05/22/22 05/22/22 mcg (2,000 unit) tablet ferrous sulfate 140 mg (45 mg 140 mg PO DAILY 05/22/22 05/22/22 iron) tablet,extended release hydrocodone 5 mg-acetaminophen 325 1 tablet PO BID PRN Pain 05/22/22 05/22/22 mg tablet hyoscyamine sulfate 0.125 mg tablet 0.125 mg PO Q4H PRN Cramps 05/22/22 05/22/22 ketotifen fumarate 0.025 % (0.035 1 drp EACH EYE BID PRN Allergy 05/22/22 05/22/22 %) eye drops (Allergy Eye Symptoms (ketotifen)) magnesium 250 mg tablet 250 mg PO DAILY 05/22/22 05/22/22 potassium 99 mg tablet 99 mg PO DAILY 05/22/22 05/22/22 <Alma Oliver PA-C - Last Filed: 05/22/22 00:23> Allergies/adverse reactions: Allergies Allergy/AdvReac Type Severity Reaction Status Date / Time No Known Allergies Allergy Verified 05/19/22 14:57 <MAY Waters Last Filed: 05/22/22 00:23> Review of Systems Review of Systems: CONSTITUTIONAL: Reports generalized weakness, subjective fever, chills, and sweats. CARDIOVASCULAR: Denies chest pain, palpitations, or BLE edema. RESPIRATORY: Reports cough and dyspnea. GASTROINTESTINAL: Denies abdominal pain, nausea, vomiting, or diarrhea. MUSCULOSKELETAL: Reports chest wall pain with coughing. <MAY Waters Last Filed: 05/22/22 00:23> All systems reviewed & are unremarkable except as noted in HPI and below <Alma Oliver PA-C - Last Filed: 05/22/22 00:23> [facility] Past Medical History Medical History: Medical History Anxiety COPD with emphysema Degenerative disc disease Gastroesophageal reflux disease Vitamin D deficiency, unspecified <Alma Soto
[2022-05-21] MEDS: POTASSIUM CHLORIDE INJ 40 MEQ in SODIUM CHLORIDE 0.9% IV 500 ML 130 MEQ IVPB (19:57)
[2022-05-21] MEDS: SODIUM CHLORIDE 0.9% IV 1,000 ML 999 ML IV CONT (20:04)
[2022-05-21 20:15] LABS: Lactic Acid Reflex 1.2 mmol/L (0.7-2.0)
[2022-05-21 20:21] LABS: D Dimer 2.37 ug/mL (<0.48)
[2022-05-21 20:27] LABS: Troponin I < 0.012 ng/mL (0.000-0.034)
[2022-05-21] MEDS: POTASSIUM CHLORIDE 20 MEQ TABLET 40 MEQ PO (20:41)
[2022-05-22] VITALS (14 sets, daily range): BP systolic 124–129; BP diastolic 53–65; PULSE 71–82; RESP 13–25; TEMP 36.1–36.6; O2SAT 96–100; BMI 21.8
--- NOTE | 2022-05-22 00:21 | PM.IMHP ---
H&P: HPI History of Present Illness Date/Time: 05/22/22 00:21 Chief Complaint: fevers Narrative: This is a 66-year-old female with past medical history significant for COPD,/ emphysema, gastroesophageal reflux disease. patient comes to the emergency room due to chills, fevers, cough, shortness of breath generalized malaise body aches and pains, poor appetite. patient had been to the emergency room a was discharged home on p.o. antibiotics however returns after worsening, No improvement. preliminary workup was significant for CT of the chest was reported as: IMPRESSION:? Right lower lobe pneumonia Emphysema No evidence of pulmonary embolism chest x-ray was reported as: Impression: ? Right lower lobe pneumonia, similar to mildly worsened from prior exam. Review of Systems Review of Systems: Fevers, chills, cough, generalized malaise, shortness of breath. Constitutional: Constitutional: Reports chills, Reports fatigue, Reports fever(s), Reports lethargy, Reports malaise, Reports night sweats and Reports weakness Eyes: Eyes: Denies change in vision ENT: Denies dysphagia, Denies vertigo, Denies dizziness, Denies odynophagia and Denies disequilibrium Cardiovascular: Cardiovascular: Denies chest pain, Denies leg edema and Denies radiating jaw, neck or arm pain Respiratory: Respiratory: Reports chest congestion, Reports cough, Reports pain on inspiration, Reports dyspnea and Reports wheezing Gastrointestinal: Gastrointestinal: Denies dyspepsia, Denies heartburn, Denies diarrhea, Denies nausea and Denies vomiting Genitourinary: Genitourinary: Denies dysuria Musculoskeletal: Musculoskeletal: Reports myalgias Integumentary/Breasts: Skin/Breast: Denies rash Neurologic: Denies vertigo, Denies dizziness, Denies focal weakness and Denies Sensory deficit (Neuro) Psychiatric: Psychiatric: Reports no additional psychiatric complaints and Reports as per HPI Endocrine: Endocrine: Denies cold intolerance, Denies flushing, Denies heat intolerance, Denies polyphagia, Denies polydipsia and Denies palpitations Hematologic/Lymphatic: Hematologic/Lymphatic: Reports no additional hematologic/lymphatic complaints and Reports as per HPI Allergic/Immunologic: Allergic/Immunologic: Reports no additional allergic/immunologic complaints and Reports as per HPI [facility] Past Medical History Medical History Anxiety COPD with emphysema Degenerative disc disease Gastroesophageal reflux disease Vitamin D deficiency, unspecified Surgical History Surgical History History of cardiac catheterization (02/2021) Right coronary dominant circulation with no evidence of coronary disease. History of section History of colonoscopy with polypectomy History of hysterectomy History of kyphoplasty History of repair of right rotator cuff History of tubal ligation Status post excision of Hernández's neuroma Family History Family History Father Family history of rheumatoid arthritis Cancer Sibling Pancreatic cancer Arthritis Family history of chronic obstructive pulmonary disease Gout Mother Cancer Emphysema of lung Daughter Asthma Social History Social History Social History: Surrogate decision maker: Israel Chung, spouse. Code status: Full code. Smoking packs per day: 1.5 Smoking cigarettes per day: 30.0 Years smoked: 25 Smoking pack-years: 37.50 Smoking status: Former smoker Tobacco type: cigarettes Smoking end date: 07/22/04 Alcohol intake: current Drinks per week: 5 Substance use: current Substance use type: painkillers and prescription drug Lack of Transportation: No Lack of Food: Never True Current Housing: I Have Housing Concerned About Future Housing: No
[2022-05-22] MEDS: SODIUM CHLORIDE 0.9% IV 1,000 ML 999 ML IV CONT (01:03)
--- NOTE | 2022-05-22 03:01 | ADMGEN ---
This patient, Rosemarie Chung, was admitted to [facility] Surg Room 317-01. Patient/family oriented to hospital policies and general routines including ID bracelet, bed and alarms, visiting hours, pain management, procedures, bathroom and other care routines, personal items, smoking policy, room service/diet, and visiting hours. Information on how to activate the Rapid Response Team has been discussed. Patient/Family are encouraged to report perceived risks to care and to ask questions if they do not understand what they are told or what they should do.
[2022-05-22 09:53] LABS: Basophils Absolute Auto 0.2 K/mm3 (0.0-0.1); Basophils Percent Auto 1.6 % (0.2-1.2); Eosinophils Absolute Auto 0.2 K/mm3 (0-0.3); Eosinophils Percent Auto 1.6 % (0-4.4); Hematocrit 27.7 % (37.0-47.0); Hemoglobin 9.6 g/dL (12.0-15.0); Immature Granulocyte Percent A 8.3 % (0-0.5); Lymphocytes Absolute Auto 0.84 K/mm3 (0.9-3.2); Lymphocytes Percent Auto 8.7 % (18.3-44.2); Mean Corpuscular HGB Conc 34.7 g/dl (32-36); Mean Corpuscular Hemoglobin 32.4 pg (26-34); Mean Corpuscular Volume 93.6 fl (80-100); Monocytes Absolute Auto 1.2 K/mm3 (0.1-0.6); Neutrophils Absolute Auto 6.5 K/mm3 (1.3-6.7); Neutrophils Percent Auto 67.8 % (45.5-73.1); Platelet Count Result 377 k/mm3 (150-375); Red Blood Count 2.96 M/mm3 (4.2-5.4); Red Cell Distribution Width 12.3 % (11.5-14.5); White Blood Count 9.6 K/mm3 (4.5-10.0)
[2022-05-22 09:56] LABS: Anion Gap 9 mmol/L (8-16); Blood Urea Nitrogen 16 mg/dL (7-17); Calcium 8.6 mg/dL (8.4-10.2); Carbon Dioxide 20 mmol/L (22-30); Chloride 102 mmol/L (98-107); Estimated CRCL calculation 36 ml/min; Estimated Glomerular Filt Rate 45; Glucose 81 mg/dL (65-110); Magnesium 1.9 mg/dL (1.6-2.3); Potassium 3.5 mmol/L (3.4-5.0); Sodium 131 mmol/L (137-145)
[2022-05-22] MEDS: ENOXAPARIN 40 MG/0.4 ML SYRINGE SUB-Q (10:13)
--- NOTE | 2022-05-22 11:03 | PM.IMPN ---
Progress Note: A&P Assessment and Plan (1) Pneumonia: Qualifiers: Laterality: right Lung location: lower lobe of lung Pneumonia type: due to unspecified organism Qualified Code(s): J18.9 - Pneumonia, unspecified organism Code(s): J18.9 - Pneumonia, unspecified organism Status: Acute Assessment and Plan: CXR reveals right lower lobe pneumonia, also evident on chest CTA. No evidence of PE. Received 1 day of outpatient Augmentin and azithromycin. Continue IV ceftriaxone azithromycin at this time. Blood cultures are pending. leukocytosis has resolved. Patient is afebrile. Will attempt sputum for collection. COVID and influenza negative. Will evaluate urinary Legionella and pneumococcal antigens. Supportive care to include bronchodilators, expectorants, incentive spirometry, CPT (2) Hypokalemia: Code(s): E87.6 - Hypokalemia Status: Acute Assessment and Plan: An ongoing issue. Potassium improved to 3.5 today with supplementation. Home potassium supplement is nonformulary therefore will begin KCl 40 mEq daily and monitor BMP (3) Hyponatremia: Code(s): E87.1 - Hypo-osmolality and hyponatremia Status: Acute Assessment and Plan: Chronic, established with Nephrology who monitors. sodium 123 on admission, improved to 131 after receiving 2 L of IV fluids in the ED. avoid further increase in sodium levels To ensure appropriate rate of correction. Resume home sodium chloride 1 g tablet daily and Lasix 20 mg daily starting tomorrow. Patient reports that she has only been taking Lasix and sodium chloride about 2 times per week due to frequent urination. Consider Nephrology consultation if any issues arise with sodium (4) Acute kidney injury: Code(s): N17.9 - Acute kidney failure, unspecified Status: Acute Assessment and Plan: baseline appears to be around 1.1. Creatinine elevated up to 1.5 on admission but has improved to 1.2 following IV fluids. IV fluids have been discontinued and patient is tolerating p.o. intake. Continue to monitor BMP (5) COPD with emphysema: Code(s): J43.9 - Emphysema, unspecified Status: Chronic Assessment and Plan: no acute exacerbation. Continue home inhalers (6) Thrombocytosis: Code(s): D75.839 - Thrombocytosis, unspecified Status: Chronic Assessment and Plan: chronic, ongoing issue evaluated during hospital admission January 2022. Patient is established with Hematology who follows. Continue to monitor CBC during admission Subjective Date/time seen: 05/22/22 11:03 Interval history: Date of service: 05/22/2022 Rosemarie Chung is a 66-year-old female with a history of COPD, GERD, degenerative disc disease, vitamin-D deficiency, chronic hyponatremia, thrombocytosis who is seen in follow-up for pneumonia. Patient had been evaluated at urgent care on 05/20 and started on azithromycin and Augmentin. Took 1 day of antibiotics without any symptomatic improvement therefore came to ED on 05/21. Patient reports complaints of cough with scant yellow sputum production. She endorses right-sided pleuritic chest pain with coughing And with deep inspiration. She denies wheezing. Endorses chills but no fever. Denies shortness of breath or dyspnea on exertion. She has been able to ambulate around her hospital room today and is tolerating this well. She denies any urinary symptoms. Review of Systems Review of Systems: All systems reviewed & are unremarkable except as noted in HPI and below Exam Narrative: General: Well-nourished, well-appearing 66-year-old female, sitting up in bed, comfortable, NARD Neuro: awake, alert and oriented x4, speech clear, no focal neuro deficits noted HEENMT: normocephalic, atraumatic, EOMI, sclerae anicteric Respiratory: clear to auscultation bilaterally, no crackles or wheezes, nonlabored breathing Cardio: regular r
[2022-05-22] MEDS: POTASSIUM CHLORIDE 20 MEQ TABLET.ER 40 MEQ PO (13:06)
[2022-05-22] MEDS: PANTOPRAZOLE 40 MG TABLET PO (13:07)
[2022-05-22] MEDS: HYDROcodone/acetaminophen (*CRX) 5-325 MG TABLET 1 TAB PO (13:15)
[2022-05-22] MEDS: LORazepam (*CRX) 0.5 MG TABLET PO (13:15)
[2022-05-22] MEDS: estradioL 1 MG TABLET PO (14:26)
[2022-05-22] MEDS: UMECLIDINIUM/VILANTEROL 62.5-25 MCG ELLIPTA 1 PUFF INHALATION (14:35)
[2022-05-22] MEDS: ATORVASTATIN 20 MG TABLET PO (20:21)
[2022-05-22] MEDS: guaiFENesin 12 HR 600 MG TABCR PO (20:21)
[2022-05-23 05:59] VITALS: BP 130/52; PULSE 75; RESP 14; TEMP 37; O2SAT 96
[2022-05-23 07:59] LABS: Basophils Percent Auto 0.5 % (0.2-1.2); Eosinophils Absolute Auto 0.4 K/mm3 (0-0.3); Eosinophils Percent Auto 4.1 % (0-4.4); Hematocrit 26.9 % (37.0-47.0); Hemoglobin 9.2 g/dL (12.0-15.0); Immature Granulocyte Absolute 1.05 K/mm3 (0.00-0.031); Immature Granulocyte Percent A 12.1 % (0-0.5); Lymphocytes Percent Auto 10.3 % (18.3-44.2); Mean Corpuscular HGB Conc 34.2 g/dl (32-36); Mean Corpuscular Hemoglobin 31.9 pg (26-34); Mean Corpuscular Volume 93.4 fl (80-100); Monocytes Absolute Auto 1.1 K/mm3 (0.1-0.6); Monocytes Percent Auto 12.9 % (2.6-8.5); Neutrophils Absolute Auto 5.2 K/mm3 (1.3-6.7); Neutrophils Percent Auto 60.1 % (45.5-73.1); Platelet Count Result 458 k/mm3 (150-375); Red Blood Count 2.88 M/mm3 (4.2-5.4); Red Cell Distribution Width 12.4 % (11.5-14.5); White Blood Count 8.7 K/mm3 (4.5-10.0)
[2022-05-23 08:43] LABS: Anion Gap 5 mmol/L (8-16); Blood Urea Nitrogen 10 mg/dL (7-17); Calcium 8.7 mg/dL (8.4-10.2); Carbon Dioxide 22 mmol/L (22-30); Chloride 104 mmol/L (98-107); Estimated CRCL calculation 43 ml/min; Estimated Glomerular Filt Rate 56; Glucose 93 mg/dL (65-110); Magnesium 1.6 mg/dL (1.6-2.3); Potassium 3.6 mmol/L (3.4-5.0); Sodium 131 mmol/L (137-145)
[2022-05-23] MEDS: HYDROcodone/acetaminophen (*CRX) 5-325 MG TABLET 1 TAB PO (08:54)
[2022-05-23] MEDS: LORazepam (*CRX) 0.5 MG TABLET PO (08:54)
[2022-05-23] MEDS: ASCORBIC ACID 500 MG TABLET 1000 MG PO (08:55)
[2022-05-23] MEDS: UMECLIDINIUM/VILANTEROL 62.5-25 MCG ELLIPTA 1 PUFF INHALATION (08:55)
[2022-05-23] MEDS: POTASSIUM CHLORIDE 20 MEQ TABLET.ER 40 MEQ PO (08:55)
[2022-05-23] MEDS: estradioL 1 MG TABLET PO (08:56)
[2022-05-23] MEDS: CHOLECALCIFEROL 1,000 UNITS TABLET 2000 UNITS PO (08:56)
[2022-05-23] MEDS: FUROSEMIDE 20 MG TABLET PO (08:56)
[2022-05-23] MEDS: PANTOPRAZOLE 40 MG TABLET PO (08:56)
[2022-05-23] MEDS: guaiFENesin 12 HR 600 MG TABCR PO (08:56)
[2022-05-23] MEDS: ASPIRIN 81 MG ENTERIC TABLET PO (08:56)
[2022-05-23] MEDS: MAGNESIUM OXIDE 400 MG TABLET PO (08:56)
[2022-05-23] MEDS: VITAMIN E 400 UNIT CAPSULE PO (08:57)
[2022-05-23] MEDS: SODIUM CHLORIDE 1 GM TABLET PO (08:57)
[2022-05-23] MEDS: FERROUS SULFATE DRIED 142 MG TABCR 140 MG PO (08:57)
[2022-05-23] MEDS: ENOXAPARIN 40 MG/0.4 ML SYRINGE SUB-Q (08:57)
--- NOTE | 2022-05-23 11:27 | PM.DS ---
DS: Admitting Diagnosis Discharge Date 05/23/2022 Admitting Diagnosis Pneumonia DS: Discharge Diagnosis Discharge Diagnosis (1) Pneumonia: Qualifiers: Laterality: right Lung location: lower lobe of lung Pneumonia type: due to unspecified organism Qualified Code(s): J18.9 - Pneumonia, unspecified organism Code(s): J18.9 - Pneumonia, unspecified organism Status: Acute Assessment and Plan: CXR revealed right lower lobe pneumonia, also evident on chest CTA. No evidence of PE.?Received 1 day of outpatient Augmentin and azithromycin prior to admission. Received IV ceftriaxone and azithromycin during admission with symptomatic improvement and will continue PO Cefdinir and azithromycin to complete full course as an outpatient. COVID and influenza negative.?Legionella urinary antigens negative. Pneumococcal antigen pending. Blood cultures negative. ? Supportive care provided (2) Hypokalemia: Code(s): E87.6 - Hypokalemia Status: Acute Assessment and Plan: An ongoing issue.?Potassium was monitored and supplemented. Continue home potassium supplement. (3) Hyponatremia: Code(s): E87.1 - Hypo-osmolality and hyponatremia Status: Acute Assessment and Plan: Chronic, established with Nephrology who monitors.?Sodium 123 on admission, improved to 131 after receiving 2 L of IV fluids in the ED and remained stable following. Continue home sodium chloride 1 g tablet daily and Lasix 20 mg daily.?Continue nephrology follow up (4) Acute kidney injury: Code(s): N17.9 - Acute kidney failure, unspecified Status: Acute Assessment and Plan: Baseline appears to be around 1.1.? Creatinine elevated up to 1.5 on admission but returned to baseline following IV fluids.? (5) COPD with emphysema: Code(s): J43.9 - Emphysema, unspecified Status: Chronic Assessment and Plan: No acute exacerbation.? Continue home inhalers (6) Thrombocytosis: Code(s): D75.839 - Thrombocytosis, unspecified Status: Chronic Assessment and Plan: Chronic, ongoing issue evaluated? during last hospital admission January 2022.? Patient is established with Hematology who follows.? DS: Summary Hospital Course Hospital Course: Date of admission: 05/21/2022 Date of discharge: 05/23/2022 Rosemarie Chung is a 66-year-old female with a history of COPD, GERD, degenerative disc disease, vitamin-D deficiency, chronic hyponatremia, thrombocytosis who presented to the emergency department on 05/21/2022 with complaints of shortness of breath some cough. Had been started on azithromycin and Augmentin as an outpatient 2 days prior with no improvement. On presentation to the ED, her vital signs were stable, she was afebrile, see 15.1, sodium 123, potassium 2.8, creatinine 1.5, COVID influenza negative, lactic within normal limits, troponin negative, CXR showed right lower lobe pneumonia. She was admitted to the hospitalist service for further evaluation management. Please see above for further details. She was treated with IV antibiotics and had symptomatic improvement. Oxygen levels remained stable. She will continue p.o. antibiotics as an outpatient and will follow-up with her PCP in 1 week for further monitoring. Patient was feeling improved and was eager for discharge home. She was determined to no longer require inpatient care and was discharged in hemodynamically stable condition on 05/23/2022. Discussed worrisome signs and symptoms for which to return and she was educated on her medications. Time Spent with Patient Time attestation: Total time spent providing and/or coordinating discharge services: 40 minutes Time spent: Greater than 30 minutes Exam Narrative: General: ? Well-nourished, well-appearing 66-year-old female,? sitting up in bed, comfortable, NARD Neuro: awake, alert and oriented x4, speech clear, no focal neuro deficits noted HE
[2022-05-26 18:24] LABS: Legionella pneumophila Ag Ur Not Detected (Not Detected)
[2022-06-01 02:55] LABS: Pneumococcal Antigen Urine Detected (Not Detected)
== END 2022-05-23 12:22 | disposition home or self-care (01) ==
LOC: ANHED 05-22 00:15 → ANH3MEDSUR 05-22 02:39
PROVIDERS: Physician Assistant; Admitting Provider Internal Medicine; Emergency Provider Emergency Medicine; PCP Internal Medicine; Visit Provider Physician Assistant
DX: J18.9 Pneumonia, unspecified organism (principal); N17.9 Acute kidney failure, unspecified; E87.6 Hypokalemia; E87.1 Hypo-osmolality and hyponatremia; R53.81 Other malaise; R07.81 Pleurodynia; J43.9 Emphysema, unspecified; F41.9 Anxiety disorder, unspecified; E55.9 Vitamin D deficiency, unspecified; D72.829 Elevated white blood cell count, unspecified; Z20.822 Contact with and (suspected) exposure to COVID-19; R63.0 Anorexia; Z68.21 Body mass index [BMI] 21.0-21.9, adult; K21.9 Gastro-esophageal reflux disease without esophagitis; F10.90 Alcohol use, unspecified, uncomplicated; D75.839 Thrombocytosis, unspecified; R79.1 Abnormal coagulation profile; F19.90 Other psychoactive substance use, unspecified, uncomplicated; Z79.890 Hormone replacement therapy; Z79.51 Long term (current) use of inhaled steroids; Z79.899 Other long term (current) drug therapy; Z87.891 Personal history of nicotine dependence; Z87.09 Personal history of other diseases of the respiratory system
CPT/HCPCS: 36415; 71046; 71275; 80048; 80053; 83605; 83735; 84484; 85025; 85380; 87040; 87070; 87205; 87449; 87636; 87899; 93005; 94640; 94667; 96361; 96365; 96366; 96367; 96372; 99285; A9270; G0378; J0456; J0696; J1650; J7030; J7040; Q9967

== ENCOUNTER → 2022-05-31 15:37 | Outpatient (CLI) | payer BC, SELFPAY ==
--- NOTE | ~2022-05-31 | XR_ITS ---
EXAMINATION: XR lumbar spine 2-3V DATE: 05/31/2022 16:08 INDICATION: Radiculopathy, lumbosacral region. TECHNIQUE: 3 views of lumbar spine were obtained. COMPARISON: Lumbar spine radiograph 11/30/2021 FINDINGS: There is 50 degrees levoscoliosis of thoracolumbar spine. There is 2 mm retrolisthesis of L 2 on L3 and 3 mm retrolisthesis of L3 on L4. There are changes of vertebroplasty at L3. There is elizabeth rely decreased disc height from L1-L2 through L5-S1 with endplate remodeling. IMPRESSION: 1. Severe lumbar spondylosis. 2. Thoracolumbar levoscoliosis. Reviewed, dictated and finalized at [facility]. TARY NAPKIN MACHINE TENDER
== END ==
PROVIDERS: PCP Internal Medicine; Visit Provider Pain Medicine Interventional Pain Medicine
DX: M47.26 Other spondylosis with radiculopathy, lumbar region (principal); G89.4 Chronic pain syndrome; M41.9 Scoliosis, unspecified; Z13.89 Encounter for screening for other disorder; Z51.81 Encounter for therapeutic drug level monitoring; Z79.899 Other long term (current) drug therapy
CPT/HCPCS: 72100

== ENCOUNTER 2022-06-12 13:26 | Outpatient (CLI) | payer BC, SELFPAY ==
[2022-06-12 16:38] LABS: Albumin Level 3.7 g/dL (3.5-5.1); Anion Gap 9 mmol/L (8-16); Blood Urea Nitrogen 6 mg/dL (7-17); Calcium 8.5 mg/dL (8.4-10.2); Carbon Dioxide 25 mmol/L (22-30); Chloride 92 mmol/L (98-107); Estimated Glomerular Filt Rate 56; Glucose 135 mg/dL (65-110); Phosphorus 3.3 mg/dL (2.5-4.5); Potassium 3.3 mmol/L (3.4-5.0); Sodium 126 mmol/L (137-145)
[2022-06-12 16:58] LABS: Total Protein Urine Random 39 mg/dL; Ur Ttl Prot Creatinine Ratio 0.32 mg/mg (0-0.20)
[2022-06-12 18:05] LABS: Add Urine Microscopic? YES; Appearance Urine Cloudy (Clear); Bilirubin Urine Negative (Negative); Blood Urine 2+ (Negative); Color Urine Yellow (Yellow); Glucose Urine UA Negative (Negative); Ketones Urine Negative (Negative); Leukocyte Esterase Ur 2+ LEU/UL (NEGATIVE); Nitrate Urine Negative (Negative); Protein Urine 1+ mg/dL (Negative); Specific Grav Ur 1.025 (1.001-1.035); Urobilinogen Urine 0.2 mg/dL (<2.0); pH Urine 5.5 (5.0-9.0)
[2022-06-12 18:14] LABS: Bacteria Urine 1+ /hpf; Mucus Urine Rare /lpf; RBC Urine 21-50 /hpf (0-2); Squamous Epithelial Cell Urine Many /hpf (Few); WBC Urine >75 /hpf (0-3)
== END 2022-06-12 13:27 | disposition home or self-care (01) ==
LOC: ANHLAB 13:27
PROVIDERS: PCP Internal Medicine; Visit Provider Internal Medicine Nephrology
DX: N17.9 Acute kidney failure, unspecified (principal); E87.1 Hypo-osmolality and hyponatremia
CPT/HCPCS: 36415; 80069; 81001; 82570; 84156

== ENCOUNTER 2022-06-22 11:59 | Outpatient (CLI) | payer BC, SELFPAY ==
[2022-06-22 13:05] LABS: Parathyroid Intact 77.3 pg/mL (7.5-53.5)
[2022-06-22 13:16] LABS: Albumin Level 3.7 g/dL (3.5-5.1); Anion Gap 6 mmol/L (8-16); Blood Urea Nitrogen 6 mg/dL (7-17); Calcium 8.6 mg/dL (8.4-10.2); Carbon Dioxide 26 mmol/L (22-30); Chloride 98 mmol/L (98-107); Estimated Glomerular Filt Rate > 60; Glucose 87 mg/dL (65-110); Potassium 4.7 mmol/L (3.4-5.0); Sodium 130 mmol/L (137-145)
[2022-06-22 13:43] LABS: Phosphorus 4.2 mg/dL (2.5-4.5)
== END 2022-06-22 12:00 | disposition home or self-care (01) ==
LOC: ANHLAB 12:02
PROVIDERS: PCP Internal Medicine; Visit Provider Internal Medicine Nephrology
DX: R82.81 Pyuria (principal); E87.1 Hypo-osmolality and hyponatremia; N17.9 Acute kidney failure, unspecified; N18.31 Chronic kidney disease, stage 3a
CPT/HCPCS: 36415; 80069; 83970; 87086

== ENCOUNTER → 2022-07-27 15:34 | Outpatient (CLI) | payer MEDICARE, OTHER, SELFPAY ==
--- NOTE | ~2022-07-27 | XR_ITS ---
EXAMINATION: XR hip BI wo pelvis DATE: 07/27/2022 15:48 INDICATION: Bilateral hip pain. TECHNIQUE: 2 views of right hip and 2 views of left hip were obtained. COMPARISON: Hip radiographs 09/22/2021 FINDINGS: Bone alignment is normal. No fracture. There is mild osteoarthritis of the hips. IMPRESSION: 1. Mild osteoarthritis of the hips. Reviewed, dictated and finalized at [facility]. CTOR SEARCH
== END ==
PROVIDERS: PCP Internal Medicine; Visit Provider Pain Medicine Interventional Pain Medicine
DX: M54.17 Radiculopathy, lumbosacral region (principal); G89.29 Other chronic pain; M16.0 Bilateral primary osteoarthritis of hip
CPT/HCPCS: 73521

== ENCOUNTER 2022-08-01 14:02 | Emergency (ER) | payer MEDICARE, OTHER, SELFPAY ==
[2022-08-01 14:11] VITALS: BP 144/55; PULSE 90; RESP 16; TEMP 36.6; O2SAT 100
[2022-08-01 14:13] VITALS: BP 144/55; PULSE 90; RESP 16; TEMP 36.6; O2SAT 100
--- NOTE | 2022-08-01 14:30 | ED.SKABFB ---
HPI - Skin/Abscess/Foreign Bdy General Chief complaint: Skin/Abscess/Foreign Body Stated complaint: Rash Time Seen by Provider: 08/01/22 14:22 Source: patient Mode of arrival: ambulatory Limitations: no limitations History of Present Illness HPI narrative: Patient presents today complaining of a one-month history of severely pruritic rash that pops up scattered over her skin. States it starts out underneath her skin then a wraps. She scratches it and it turns into a scabbed lesion. She has tried topical Benadryl without relief. Denies changes in household products, new food or drink, new medications. Related Data Home Medications Medication Instructions Recorded Confirmed estradiol 1 mg tablet 1 mg PO DAILY 11/25/19 08/01/22 loratadine 10 mg tablet (Claritin) 10 mg PO DAILY PRN Allergy Symptoms 05/28/21 08/01/22 multivitamin-ferrous 1 tablet PO DAILY 05/28/21 08/01/22 fumarate-folic acid 18 mg-400 mcg tablet (Centrum Complete) vitamin E 268 mg (400 unit) capsule 400 unit PO DAILY 05/28/21 08/01/22 ascorbic acid (vitamin C) 500 mg 1,000 mg PO DAILY 12/26/21 08/01/22 tablet ascorbic acid 90 mg-zinc oxide 50 1 cap PO DAILY 05/22/22 08/01/22 mg capsule calcium carb-vitamin D3 ER 600 mg 2 tablet PO DAILY 05/22/22 08/01/22 (1,500 mg)-500 unit tablet,ER 24 hr cholecalciferol (vitamin D3) 50 50 mcg PO DAILY 05/22/22 08/01/22 mcg (2,000 unit) tablet ferrous sulfate 140 mg (45 mg 140 mg PO DAILY 05/22/22 08/01/22 iron) tablet,extended release hydrocodone 5 mg-acetaminophen 325 1 tablet PO BID PRN Pain 05/22/22 08/01/22 mg tablet hyoscyamine sulfate 0.125 mg tablet 0.125 mg PO Q4H PRN Cramps 05/22/22 08/01/22 magnesium 250 mg tablet 250 mg PO DAILY 05/22/22 08/01/22 potassium 99 mg tablet 99 mg PO DAILY 05/22/22 08/01/22 Allergies Allergy/AdvReac Type Severity Reaction Status Date / Time No Known Allergies Allergy Verified 08/01/22 12:56 Review of Systems Review of Systems: CONSTITUTIONAL: Denies body aches, fever, chills, or sweats. EYES: Denies visual changes, redness, or discharge. ENT: Denies rhinorrhea, congestion, sore throat, or otalgia. CARDIOVASCULAR: Denies chest pain, palpitations, or edema. RESPIRATORY: Denies cough or dyspnea. GASTROINTESTINAL: Denies abdominal pain, nausea, vomiting, or diarrhea. GENITOURINARY: Denies dysuria or hematuria. SKIN: + pruritic rash. MUSCULOSKELETAL: Denies back pain, joint pain, or myalgia. NEUROLOGIC: Denies headache, numbness, tingling, or weakness. PSYCH: Denies depression or anxiety. [facility] Past Medical History Medical History Anxiety COPD with emphysema Degenerative disc disease Gastroesophageal reflux disease Vitamin D deficiency, unspecified Surgical History Surgical History History of cardiac catheterization (02/2021) Right coronary dominant circulation with no evidence of coronary disease. History of section History of colonoscopy with polypectomy History of hysterectomy History of kyphoplasty History of repair of right rotator cuff History of tubal ligation Status post excision of Hernández's neuroma Family History Family History Father Family history of rheumatoid arthritis Cancer Sibling Pancreatic cancer Arthritis Family history of chronic obstructive pulmonary disease Gout Mother Cancer Emphysema of lung Daughter Asthma Social History Social History Social History: Surrogate decision maker: Israel Chung, spouse. Code status: Full code. Smoking packs per day: 1.5 Smoking cigarettes per day: 30.0 Years smoked: 25 Smoking pack-years: 37.50 Smoking status: Former smoker Tobacco type: cigarettes Smoking end date: 07/22/04 Alcohol intake: current Drinks
== END 2022-08-01 14:38 | disposition home or self-care (01) ==
PROVIDERS: Emergency Provider Nurse Practitioner; PCP Internal Medicine
DX: L01.00 Impetigo, unspecified (principal); L30.9 Dermatitis, unspecified; J43.9 Emphysema, unspecified; Z87.891 Personal history of nicotine dependence; Z79.891 Long term (current) use of opiate analgesic
CPT/HCPCS: 99213; G0463

== ENCOUNTER 2022-09-25 12:16 | Emergency (ER) | payer MEDICARE, OTHER, SELFPAY ==
--- NOTE | ~2022-09-25 | XR_ITS ---
EXAMINATION: XR hip LT min 2V INDICATION: Hip pain after fall TECHNIQUE: Three views of the left hip are obtained. COMPARISON: 07/27/2022 FINDINGS: Bone alignment is normal. There is no fracture. There is lateral soft tissue swelling overl zeeshan the hip. Mild hip osteoarthritis is noted. IMPRESSION: 1. Lateral soft tissue swelling overlying the hip without acute osseous abnormality. Reviewed, dictated and finalized at location L. IMPRESSION: 1. Lateral soft tissue swelling overlying the hip without acute osseous abnorma lity.
--- NOTE | 2022-09-25 12:24 | ED.UPPEXIN ---
HPI - Extremity Injury (Upper) General Chief Complaint: Extremity Injury, Lower Stated Complaint: fall Time Seen by Provider: 09/25/22 12:24 Source: patient Mode of arrival: ambulatory Limitations: no limitations History of Present Illness HPI narrative: Patient is a 67-year-old female who presents with left hip pain after fall 4 days ago. Patient states she fell onto left hip and did hit left face, denies LOC. Patient concern for large area of swelling and bruising to left hip. Patient was seen for physical therapy today for her back in physical therapist told her to come be seen. Patient has extensive back injury history. Denies being on any blood thinners. Still able to ambulate at baseline with cane. Denies any numbness or tingling to left leg. Related Data Home Medications Medication Instructions Recorded Confirmed estradiol 1 mg tablet 1 mg PO DAILY 11/25/19 09/25/22 multivitamin-ferrous 1 tablet PO DAILY 05/28/21 09/25/22 fumarate-folic acid 18 mg-400 mcg tablet (Centrum Complete) vitamin E 268 mg (400 unit) capsule 400 unit PO DAILY 05/28/21 09/25/22 ascorbic acid (vitamin C) 500 mg 1,000 mg PO DAILY 12/26/21 09/25/22 tablet ascorbic acid 90 mg-zinc oxide 50 1 cap PO DAILY 05/22/22 09/25/22 mg capsule calcium carb-vitamin D3 ER 600 mg 2 tablet PO DAILY 05/22/22 09/25/22 (1,500 mg)-500 unit tablet,ER 24 hr cholecalciferol (vitamin D3) 50 50 mcg PO DAILY 05/22/22 09/25/22 mcg (2,000 unit) tablet ferrous sulfate 140 mg (45 mg 140 mg PO DAILY 05/22/22 09/25/22 iron) tablet,extended release hydrocodone 5 mg-acetaminophen 325 1 tablet PO BID PRN Pain 05/22/22 09/25/22 mg tablet magnesium 250 mg tablet 250 mg PO DAILY 05/22/22 09/25/22 potassium 99 mg tablet 99 mg PO DAILY 05/22/22 09/25/22 mecobalamin (vitamin B12) 500 mcg mcg PO DAILY 08/06/22 08/06/22 chewable tablet methocarbamol 750 mg tablet 750 mg PO TID PRN muscle spasm 03/06/23 03/06/23 Allergies Allergy/AdvReac Type Severity Reaction Status Date / Time No Known Allergies Allergy Verified 09/25/22 12:24 Review of Systems Review of Systems: All systems reviewed & are unremarkable except as noted in HPI and below Constitutional: Constitutional: Denies body ache(s), Denies chills, Denies fatigue, Denies fever(s), Denies headache(s), Denies malaise and Denies weakness Eyes: Eyes: Denies blurry vision, Denies irritation and Denies loss of vision ENT: Denies otalgia, Denies headache(s), Denies nasal discharge, Denies sinus pain and Denies sore throat Cardiovascular: Cardiovascular: Denies chest pain, Denies irregular heart rhythm and Denies dyspnea Respiratory: Respiratory: Denies dyspnea Gastrointestinal: Gastrointestinal: Denies abdominal pain, Denies melena, Denies hematochezia, Denies diarrhea, Denies nausea and Denies vomiting Musculoskeletal: Musculoskeletal: Denies back pain, Denies myalgias and Reports arthralgias Integumentary/Breasts: Skin/Breast: Denies pruritus and Denies rash Neurologic: Denies headache(s), Denies loss of vision and Denies weakness Psychiatric: Psychiatric: Reports no additional psychiatric complaints Endocrine: Endocrine: Denies fatigue PMFSH Past Medical History Medical History (Updated 09/25/22 @ 13:06 by Ceci Lyman APRN) Anxiety COPD with emphysema Degenerative disc disease Fibromyalgia Gastroesophageal reflux disease Gastroesophageal reflux disease without esophagitis Hyperlipidemia Osteoarthritis Vitamin D deficiency, unspecified Surgical History Surgical History History of cardiac catheterization (02/2021) Right coronary dominant circulation with no evidence of coronary disease. History of section History of colonoscopy with polypectomy History of hysterectomy History of kyphoplasty History of repair of right rotator cuff History of tubal ligation Status post excision of Hernández's neuroma Family Histo
[2022-09-25 12:31] VITALS: BP 136/56; PULSE 102; RESP 18; TEMP 35.7; O2SAT 100
== END 2022-09-25 13:31 | disposition home or self-care (01) ==
PROVIDERS: Emergency Provider Nurse Practitioner Family; PCP Internal Medicine
DX: S70.02XA Contusion of left hip, initial encounter (principal); W19.XXXA Unspecified fall, initial encounter; J44.9 Chronic obstructive pulmonary disease, unspecified; M79.7 Fibromyalgia; K21.9 Gastro-esophageal reflux disease without esophagitis; E78.5 Hyperlipidemia, unspecified; M19.90 Unspecified osteoarthritis, unspecified site; E55.9 Vitamin D deficiency, unspecified
CPT/HCPCS: 73502; 99213; G0463

== ENCOUNTER 2022-10-17 14:57 | Outpatient (CLI) | payer MEDICARE, OTHER, SELFPAY ==
--- NOTE | ~2022-10-17 | XR_ITS ---
XR shoulder RT min 2V 10/17/2022 15:19 Indication: Chronic right shoulder pain Procedure: 4 views right shoulder Comparison: 04/13/2019 Findings: There is superior subluxation of the right humeral head with respect to the glenoid process , suspicious for rotator cuff tear. Normal mineralization. No acute fracture or traumatic malalignmen t. There is polyarticular osteoarthritis of the right shoulder. Impression: 1: Mild polyarticular osteoarthritis possible superior subluxation of the humeral head suggesting rot ator cuff tear. Consider correlation with MRI. Reviewed, dictated and finalized at location B. Impression: 1: Mild polyarticular osteoarthritis possible superior subluxation of the humer al head suggesting rotator cuff tear. Consider correlation with MRI.
== END 2022-10-17 14:58 | disposition home or self-care (01) ==
LOC: ANHIMG 15:04
PROVIDERS: PCP Family Medicine; Visit Provider Nurse Practitioner
DX: M19.011 Primary osteoarthritis, right shoulder (principal)
CPT/HCPCS: 73030

== ENCOUNTER → 2022-10-18 10:26 | Outpatient (CLI) | payer MEDICARE, OTHER, SELFPAY ==
--- NOTE | ~2022-10-18 | MM_ITS ---
EXAMINATION: MM screening [facility] BI w daljit HISTORY: Screening mammogram TECHNIQUE: Craniocaudal and mediolateral oblique 3-D tomosynthesis images were obtained and synthetic 2-D images were generated. CAD analysis was submitted and interpreted. COMPARISON: 03/20/2021, 12/30/2019, 11/13/2018 BREAST PARENCHYMAL COMPOSITION: There are scattered areas of fibroglandular density. FINDINGS: No suspicious mass, calcification, or architectural distortion are identified in either brittany ast to suggest malignancy. There has been no suspicious interval change. IMPRESSION: 1. No mammographic evidence of malignancy. 2. Recommend routine screening mammography in one year. BI-RADS Category 1: Negative Reviewed, dictated and finalized at location A.
== END ==
PROVIDERS: PCP Family Medicine; Visit Provider Nurse Practitioner
DX: Z12.31 Encounter for screening mammogram for malignant neoplasm of breast (principal)
CPT/HCPCS: 77063; 77067

== ENCOUNTER 2022-11-04 12:48 | Outpatient (CLI) | payer MEDICARE, OTHER, SELFPAY ==
--- NOTE | ~2022-11-04 | MR_ITS ---
MRI of the right shoulder Technique: Axial proton-density fat-sat images, coronal proton density fat-sat and T2 fat-sat images, and sagittal T1-weighted and T2 fat-sat images were acquired. Clinical History: Traumatic rotator cuff tear COMPARISON: 05/12/2019 Findings: Suspected prior subacromial decompression. Minimal degenerative change present at the AC jared int currently. Coracoclavicular, coracoacromial, and coracohumeral ligaments are probably intact. There are suture anchors at the greater tuberosity compatible with prior rotator cuff repair surgery. There is complete, full-thickness tear involving the entirety of the supraspinatus tendon, which is retracted to the level of the glenohumeral joint. Fluid-filled gap measures approximately 3.5 x 3.0 c m in extent. Infraspinatus tendon appears to remain intact. Humeral head is high riding. Subscapularis tendon demonstrates severe tendinosis and probable high-grade partial thickness interst itial tearing distally. Tendon of the long head of the biceps of the bicipital groove appears irregul ar and somewhat frayed, with nonvisualization of the intra-articular portion. Findings suggest either rupture or prior tenodesis. Inferior glenohumeral ligament is probably intact. There is small to moderate glenohumeral joint effu izzy with fluid passing through the rotator cuff defect into the subacromial/subdeltoid bursa. There is partially imaged extensive soft tissue edema at the quadrilateral space region and also involving the proximal coracobrachialis muscle belly. Impression: Complete, full-thickness tear of the supraspinatus tendon, as detailed above. Evidence of prior rotat or cuff repair surgery. Severe subscapularis tendinosis with superimposed probable high-grade partial-thickness interstitial tearing distally. Suspected prior biceps tenodesis versus proximal tendon rupture. Correlate with surgical history. Extensive soft tissue edema in the quadrilateral space region and involving the proximal coracobrachi lakshmi muscle belly. Findings are compatible with grade 1 to possibly grade 2 muscle strain and associa marianna nonspecific posttraumatic soft tissue injury/edema. High riding humeral head. Reviewed, dictated and finalized at location . Impression: Complete, full-thickness tear of the supraspinatus tendon, as detailed above. E vidence of prior rotator cuff repair surgery. Severe subscapularis tendinosis with superimposed probable high-grade partial-t hickness interstitial tearing distally. Suspected prior biceps tenodesis versus proximal tendon rupture. Correlate with surgical history. Extensive soft tissue edema in the quadrilateral space region and involving the proximal coracobrachialis muscle belly. Findings are compatible with grade 1 t o possibly grade 2 muscle strain and associated nonspecific posttraumatic soft tissue injury/edema. High riding humeral head.
== END 2022-11-04 12:49 | disposition home or self-care (01) ==
PROVIDERS: PCP Family Medicine; Visit Provider Physician Assistant
DX: M75.121 Complete rotator cuff tear or rupture of right shoulder, not specified as traumatic (principal)
CPT/HCPCS: 73221

== ENCOUNTER 2022-12-26 10:07 | Outpatient (CLI) | payer MEDICARE, OTHER, SELFPAY ==
[2022-12-26 10:27] LABS: Hematocrit 31.1 % (37.0-47.0); Mean Corpuscular HGB Conc 35.4 g/dl (32-36); Mean Platelet Volume 9.1 fl (7.4-10.4); Platelet Count Result 274 k/mm3 (150-375); Red Blood Count 3.14 M/mm3 (4.2-5.4); Red Cell Distribution Width 13.1 % (11.5-14.5); White Blood Count 3.7 K/mm3 (4.5-10.0)
[2022-12-26 10:37] LABS: Appearance Urine Cloudy (Clear); Bacteria Urine None Seen /hpf; Bilirubin Urine Negative (Negative); Blood Urine Negative (Negative); Color Urine Yellow (Yellow); Glucose Urine UA Negative (Negative); Ketones Urine Negative (Negative); Leukocyte Esterase Ur Negative LEU/UL (Negative); Need Manual Microscopic Reviewed; Nitrate Urine Negative (Negative); Protein Urine Negative (Negative); Specific Grav Ur 1.014 (1.001-1.035); Squamous Epithelial Cell Urine Moderate /hpf (Few); Urobilinogen Urine 0.2 mg/dL (<2.0); WBC Urine 0-5 /hpf; pH Urine 5.5 (5.0-9.0)
[2022-12-26 10:38] LABS: Alanine Aminotransferase 26 U/L (6-35); Alkaline Phosphatase 93 U/L (38-126); Anion Gap 8 mmol/L (8-16); Aspartate Amino Transferase 64 U/L (14-36); Bilirubin,Total 0.6 mg/dL (0.2-1.3); Blood Urea Nitrogen 8 mg/dL (7-17); Calcium 8.8 mg/dL (8.4-10.2); Carbon Dioxide 25 mmol/L (22-30); Chloride 94 mmol/L (98-107); Estimated Glomerular Filt Rate > 60; Glucose 85 mg/dL (65-110); Potassium 4.2 mmol/L (3.4-5.0); Sodium 127 mmol/L (137-145)
[2022-12-26 10:39] LABS: Add Urine Microscopic? YES
== END 2022-12-26 10:08 | disposition home or self-care (01) ==
PROVIDERS: PCP Family Medicine; Visit Provider Nurse Practitioner
DX: Z01.818 Encounter for other preprocedural examination (principal); N30.01 Acute cystitis with hematuria
CPT/HCPCS: 36415; 80053; 81001; 85027

== ENCOUNTER → 2023-01-11 16:29 | Outpatient (CLI) | payer MEDICARE, OTHER, SELFPAY ==
--- NOTE | ~2023-01-11 | XR_ITS ---
EXAM: XR lumbar spine 2-3V DATE: 01/11/2023 16:44 HISTORY: Radiculopathy, lumbosacral region . COMPARISON: 05/31/2022. FINDINGS: Severe lumbar scoliosis. Reversed cervical lordosis centered at L1-2. Vertebroplasty cement with extension lumbar veins at L3. 5 nonrib-bearing lumbar-type vertebral bodies. Pedicles intact. M inimal grade 1 retrolistheses at L2-3 and L3-4, stable. Vertebral body heights are stable. Severe dis c space narrowing at all levels. Moderate-severe mid and lower lumbar facet sclerosis and hypertrophy . No fracture or dislocation. IMPRESSION: No acute fracture or traumatic malalignment detected in the lumbar spine. Multilevel severe degenerative disc disease and facet arthropathy. Reviewed, dictated and finalized at location K.
== END ==
PROVIDERS: PCP Family Medicine; Visit Provider Pain Medicine Interventional Pain Medicine
DX: M54.17 Radiculopathy, lumbosacral region (principal); M51.36 Other intervertebral disc degeneration, lumbar region; M47.816 Spondylosis without myelopathy or radiculopathy, lumbar region; M12.88 Other specific arthropathies, not elsewhere classified, other specified site
CPT/HCPCS: 72100

== ENCOUNTER 2023-02-25 13:33 | Emergency (ER) | payer MEDICARE, OTHER, SELFPAY ==
[2023-02-25] VITALS (8 sets, daily range): BP systolic 148–172; BP diastolic 60–83; PULSE 88–122; RESP 12–17; TEMP 36.8; O2SAT 100
--- NOTE | ~2023-02-25 | CT_ITS ---
EXAMINATION: CT abdomen pelvis w con DATE: 02/25/2023 17:44 INDICATION: N/V, weakness, RUQ tendneress, abnl bili/lfts TECHNIQUE: Computed tomography (CT) of the abdomen and pelvis was performed with 100 mL Omnipaque-350 intravenous contrast. Automated exposure control and iterative reconstruction technique were employe d. The dose-length product was 340.84 mGy-cm. COMPARISON: 12/30/2021. FINDINGS: Lower thorax: Emphysematous and senescent change. Liver: Normal. Biliary/Gallbladder: Mild gallbladder hydrops. No stone or inflammatory change. Stable biliary duct. Pancreas: Pancreatic atrophy. Spleen: Normal. Adrenals:No mass. Kidneys: Bilateral renal scarring. No suspicious mass, obstructing stone, or hydronephrosis. GI tract: No small or large bowel dilation. Normal appendix. Mesentery/Peritoneum: No ascites, mass, or free air. Retroperitoneum: No mass. Atherosclerotic abdominal aortic and/or arterial calcifications. Pelvis: Pelvic organs are within normal limits. Soft Tissues: Soft tissues and body wall unremarkable. Bones: No acute osseous finding. L3 vertebroplasty cement. Severe lumbar scoliosis. IMPRESSION: Gallbladder hydrops, without cholelithiasis or inflammatory change. Bladder wall thickening/inflammatory change may represent cystitis in the proper clinical context. Reviewed, dictated and finalized at location K. IMPRESSION: Gallbladder hydrops, without cholelithiasis or inflammatory change. Bladder wall thickening/inflammatory change may represent cystitis in the prope r clinical context.
--- NOTE | 2023-02-25 15:39 | PC.NURSE ---
Pt brought back to room 18 to be evaluated by TOWEL INSPECTOR
--- NOTE | 2023-02-25 15:42 | ECG_ITS ---
Measurements Intervals [place] Rate: 85 P: 73 NH: 159 QRS: 57 QRSD: 89 T: 57 QT: 367 QTc: 438 Interpretive Statements SINUS RHYTHM BASELINE ARTIFACT- I, II, III, AVR, AVL, AVF, V2-V3 NORMAL ECG COMPARED TO ECG 05/21/2022 18:44:44 NO SIGNIFICANT CHANGES Electronically Signed On 02-25-2023 18:46:32 CDT by Antonio Richards D.O.
--- NOTE | 2023-02-25 15:46 | ED.NAVMDI ---
HPI - Nausea/Vomiting/Diarrhea General Chief complaint: Nausea/Vomiting/Diarrhea Stated complaint: I'm severly dehydrated N/V Time Seen by Provider: 02/25/23 15:44 Source: patient Mode of arrival: ambulatory Limitations: no limitations History of Present Illness HPI Narrative: Rosemarie is a 67 year old female patient presenting to the ER today with c/o being possible dehydrated. She reports she is having dizziness, nausea, and vomiting. Unable to keep any fluids down. History of anemia as well as a fever kidney infection. Has been sick off and on x 1 week. Today symptoms have worsened. Took at home Covid test earlier this week and it was negative. No chest pain or shortness of breath. Denies any visual changes. Related Data Home Medications Medication Instructions Recorded Confirmed estradiol 1 mg tablet 1 mg PO DAILY 11/25/19 12/18/22 multivitamin-ferrous 1 tablet PO DAILY 05/28/21 12/18/22 fumarate-folic acid 18 mg-400 mcg tablet (Centrum Complete) vitamin E 268 mg (400 unit) capsule 400 unit PO DAILY 05/28/21 12/18/22 ascorbic acid (vitamin C) 500 mg 1,000 mg PO DAILY 12/26/21 12/18/22 tablet calcium carb-vitamin D3 ER 600 mg 2 tablet PO DAILY 05/22/22 12/18/22 (1,500 mg)-500 unit tablet,ER 24 hr cholecalciferol (vitamin D3) 50 50 mcg PO DAILY 05/22/22 12/18/22 mcg (2,000 unit) tablet ferrous sulfate 140 mg (45 mg 140 mg PO DAILY 05/22/22 12/18/22 iron) tablet,extended release hydrocodone 5 mg-acetaminophen 325 1 tablet PO BID PRN Pain 05/22/22 12/18/22 mg tablet magnesium 250 mg tablet 250 mg PO DAILY 05/22/22 12/18/22 potassium 99 mg tablet 99 mg PO DAILY 05/22/22 12/18/22 mecobalamin (vitamin B12) 500 mcg 500 mcg PO DAILY 08/06/22 12/18/22 chewable tablet Allergies Allergy/AdvReac Type Severity Reaction Status Date / Time No Known Allergies Allergy Verified 12/11/22 11:04 Review of Systems Review of Systems: All systems reviewed & are unremarkable except as noted in HPI and below PMFSH Past Medical History Medical History Anxiety COPD with emphysema Degenerative disc disease Fibromyalgia Gastroesophageal reflux disease Gastroesophageal reflux disease without esophagitis Hyperlipidemia Osteoarthritis Vitamin D deficiency, unspecified Surgical History Surgical History History of cardiac catheterization (02/2021) Right coronary dominant circulation with no evidence of coronary disease. History of section History of colonoscopy with polypectomy History of hysterectomy History of kyphoplasty History of repair of right rotator cuff History of tubal ligation Status post excision of Hernández's neuroma Family History Family History Father Family history of rheumatoid arthritis Cancer Sibling Pancreatic cancer Arthritis Family history of chronic obstructive pulmonary disease Gout Mother Cancer Emphysema of lung Daughter Asthma Social History Social History Social History: Surrogate decision maker: Israel Chung, spouse. Code status: Full code. Smoking packs per day: 1.5 Smoking cigarettes per day: 30.0 Years smoked: 25 Smoking pack-years: 37.50 Smoking status: Former smoker Tobacco type: cigarettes Smoking end date: 07/22/04 Alcohol intake: current Drinks per week: 8 Substance use: current Substance use type: painkillers and prescription drug Lack of Transportation: No Lack of Food: Never True Current Housing: I Have Housing Concerned About Future Housing: No Difficulty Paying Gas/Electric Bills: No Difficulty Paying for Meds: No Currently Unemployed: No Education: High School Diploma/GED Difficulty w/ Childcare or Family Care: No Additional living arrangements comments: [facility]
[2023-02-25] MEDS: ONDANSETRON INJ 4 MG/2 ML VIAL IV PUSH ×2 (15:53→17:45)
[2023-02-25 16:05] LABS: Basophils Absolute Auto 0.1 K/mm3 (0.0-0.1); Basophils Percent Auto 1.1 % (0.2-1.2); Eosinophils Percent Auto 0.2 % (0-4.4); Hematocrit 29.8 % (37.0-47.0); Hemoglobin 10.8 g/dL (12.0-15.0); Immature Granulocyte Absolute 0.03 K/mm3 (0.00-0.031); Immature Granulocyte Percent A 0.4 % (0-0.5); Lymphocytes Absolute Auto 0.92 K/mm3 (0.9-3.2); Lymphocytes Percent Auto 11.3 % (18.3-44.2); Mean Corpuscular HGB Conc 36.2 g/dl (32-36); Mean Corpuscular Hemoglobin 34.8 pg (26-34); Mean Corpuscular Volume 96.1 fl (80-100); Mean Platelet Volume 9.7 fl (7.4-10.4); Monocytes Absolute Auto 0.7 K/mm3 (0.1-0.6); Neutrophils Absolute Auto 6.3 K/mm3 (1.3-6.7); Platelet Count Result 181 k/mm3 (150-375); Red Cell Distribution Width 11.5 % (11.5-14.5); White Blood Count 8.1 K/mm3 (4.5-10.0)
[2023-02-25 16:14] LABS: Alanine Aminotransferase 38 U/L (6-35); Albumin Level 4.9 g/dL (3.5-5.1); Alkaline Phosphatase 171 U/L (38-126); Anion Gap 14 mmol/L (8-16); Aspartate Amino Transferase 125 U/L (14-36); Bilirubin,Total 1.7 mg/dL (0.2-1.3); Blood Urea Nitrogen 9 mg/dL (7-17); Calcium 9.4 mg/dL (8.4-10.2); Carbon Dioxide 24 mmol/L (22-30); Chloride 84 mmol/L (98-107); Estimated CRCL calculation 55 ml/min; Estimated Glomerular Filt Rate > 60; Glucose 108 mg/dL (65-110); Potassium 3.8 mmol/L (3.4-5.0); Sodium 122 mmol/L (137-145)
[2023-02-25 16:21] LABS: Appearance Urine Cloudy (Clear); Bacteria Urine None Seen /hpf; Bilirubin Urine Negative (Negative); Blood Urine Negative (Negative); Color Urine Yellow (Yellow); Glucose Urine UA Negative (Negative); Ketones Urine 1+ mg/dL (Negative); Leukocyte Esterase Ur 1+ LEU/UL (Negative); Mucus Urine Present /lpf; Need Manual Microscopic Reviewed; Nitrate Urine Negative (Negative); Non Pathogenic Casts >20; Protein Urine 1+ mg/dL (Negative); RBC Urine 0-2 /hpf (0-2); Specific Grav Ur 1.015 (1.001-1.035); Squamous Epithelial Cell Urine Few /hpf (Few); WBC Urine 0-5 /hpf; pH Urine 5.5 (5.0-9.0)
[2023-02-25 16:23] LABS: Add Urine Microscopic? YES
[2023-02-25 16:59] LABS: Influenza A QL RT-PCR Negative (Negative); Influenza B QL RT-PCR Negative (Negative); SARS-CoV-2 RNA PCR Negative (Negative)
--- NOTE | 2023-02-25 17:33 | PC.NURSE ---
Pt to CT via stretcher at this time
--- NOTE | 2023-02-25 17:36 | ED.NAVMDI ---
HPI - Nausea/Vomiting/Diarrhea General Chief complaint: Nausea/Vomiting/Diarrhea Stated complaint: I'm severly dehydrated N/V Time Seen by Provider: 02/25/23 15:44 Source: patient Mode of arrival: ambulatory Limitations: no limitations History of Present Illness HPI Narrative: Patient is a 67-year-old female who presents to the ED with report of weakness and nausea/vomiting. Patient reports she has not been feeling well for the last week or so. She has felt increasingly weak over the last several days. She states she felt dehydrated and felt as though she is not eating and drinking enough. Today, she developed nausea and vomiting. She was unable to keep down any food or drink. She then presented here. Patient denies any sick contacts. Denies recent cough or cold symptoms. Denies significant abdominal pain. Denies fevers. Denies chest pain or shortness of breath. Denies urinary complaints. Patient notes she has a history of anemia and hyponatremia. She is unsure what her numbers typically run. Related Data Home Medications Medication Instructions Recorded Confirmed estradiol 1 mg tablet 1 mg PO DAILY 11/25/19 12/18/22 multivitamin-ferrous 1 tablet PO DAILY 05/28/21 12/18/22 fumarate-folic acid 18 mg-400 mcg tablet (Centrum Complete) vitamin E 268 mg (400 unit) capsule 400 unit PO DAILY 05/28/21 12/18/22 ascorbic acid (vitamin C) 500 mg 1,000 mg PO DAILY 12/26/21 12/18/22 tablet calcium carb-vitamin D3 ER 600 mg 2 tablet PO DAILY 05/22/22 12/18/22 (1,500 mg)-500 unit tablet,ER 24 hr cholecalciferol (vitamin D3) 50 50 mcg PO DAILY 05/22/22 12/18/22 mcg (2,000 unit) tablet ferrous sulfate 140 mg (45 mg 140 mg PO DAILY 05/22/22 12/18/22 iron) tablet,extended release hydrocodone 5 mg-acetaminophen 325 1 tablet PO BID PRN Pain 05/22/22 12/18/22 mg tablet magnesium 250 mg tablet 250 mg PO DAILY 05/22/22 12/18/22 potassium 99 mg tablet 99 mg PO DAILY 05/22/22 12/18/22 mecobalamin (vitamin B12) 500 mcg 500 mcg PO DAILY 08/06/22 12/18/22 chewable tablet Allergies Allergy/AdvReac Type Severity Reaction Status Date / Time No Known Allergies Allergy Verified 12/11/22 11:04 Review of Systems Review of Systems: CONSTITUTIONAL: Reports generalized weakness. Denies fever, chills, or sweats. ENT: Denies rhinorrhea, congestion, sore throat. CARDIOVASCULAR: Denies chest pain. RESPIRATORY: Denies cough or dyspnea. GASTROINTESTINAL: See HPI. GENITOURINARY: Denies dysuria or hematuria. MUSCULOSKELETAL: Denies back pain, joint pain, or myalgia. NEUROLOGIC: Denies headache, numbness, or weakness. All systems reviewed & are unremarkable except as noted in HPI and below PMFSH Past Medical History Medical History Anxiety COPD with emphysema Degenerative disc disease Fibromyalgia Gastroesophageal reflux disease Gastroesophageal reflux disease without esophagitis Hyperlipidemia Osteoarthritis Vitamin D deficiency, unspecified Surgical History Surgical History History of cardiac catheterization (02/2021) Right coronary dominant circulation with no evidence of coronary disease. History of section History of colonoscopy with polypectomy History of hysterectomy History of kyphoplasty History of repair of right rotator cuff History of tubal ligation Status post excision of Hernández's neuroma Family History Family History Father Family history of rheumatoid arthritis Cancer Sibling Pancreatic cancer Arthritis Family history of chronic obstructive pulmonary disease Gout Mother Cancer Emphysema of lung Daughter Asthma Social History Social History Social History: Surrogate decision maker: Israel Chung, spouse. Code status: Full code. Smok
[2023-02-25] MEDS: SODIUM CHLORIDE 0.9% IV 1,000 ML 999 ML IV CONT ×2 (17:43→19:00)
[2023-02-25] MEDS: PANTOPRAZOLE SODIUM IV 40 MG VIAL IV PUSH (17:46)
[2023-02-25 18:01] LABS: Lipase 95 U/L (23-300)
== END 2023-02-25 21:32 | disposition home or self-care (01) ==
PROVIDERS: Nurse Practitioner Family; Emergency Provider Physician Assistant; PCP Family Medicine
DX: R11.2 Nausea with vomiting, unspecified (principal); K82.1 Hydrops of gallbladder; E87.1 Hypo-osmolality and hyponatremia; E86.0 Dehydration; R74.01 Elevation of levels of liver transaminase levels; F41.9 Anxiety disorder, unspecified; J44.9 Chronic obstructive pulmonary disease, unspecified; M79.7 Fibromyalgia; K21.9 Gastro-esophageal reflux disease without esophagitis; M19.90 Unspecified osteoarthritis, unspecified site; Z20.822 Contact with and (suspected) exposure to COVID-19
CPT/HCPCS: 36415; 74177; 80053; 81001; 83690; 85025; 87636; 93005; 96361; 96374; 96375; 96376; 99284; C9113; J2405; J7030; Q9967

== ENCOUNTER 2023-06-07 12:46 | Outpatient (CLI) | payer MEDICARE, OTHER, SELFPAY ==
[2023-06-07 13:03] LABS: Basophils Absolute Auto 0.1 K/mm3 (0.0-0.1); Basophils Percent Auto 1.1 % (0.2-1.2); Eosinophils Absolute Auto 0.1 K/mm3 (0-0.3); Eosinophils Percent Auto 0.9 % (0-4.4); Hematocrit 31.5 % (37.0-47.0); Hemoglobin 11.4 g/dL (12.0-15.0); Immature Granulocyte Absolute 0.07 K/mm3 (0.00-0.031); Immature Granulocyte Percent A 0.9 % (0-0.5); Lymphocytes Absolute Auto 1.27 K/mm3 (0.9-3.2); Mean Corpuscular HGB Conc 36.2 g/dl (32-36); Mean Corpuscular Hemoglobin 34.8 pg (26-34); Mean Platelet Volume 9.1 fl (7.4-10.4); Monocytes Absolute Auto 0.9 K/mm3 (0.1-0.6); Monocytes Percent Auto 12.3 % (2.6-8.5); Neutrophils Absolute Auto 5.1 K/mm3 (1.3-6.7); Neutrophils Percent Auto 67.8 % (45.5-73.1); Platelet Count Result 270 k/mm3 (150-375); Red Blood Count 3.28 M/mm3 (4.2-5.4); Red Cell Distribution Width 12.3 % (11.5-14.5); White Blood Count 7.5 K/mm3 (4.5-10.0)
[2023-06-07 16:27] LABS: Iron 105 ug/dL (37-170)
[2023-06-07 16:29] LABS: Anion Gap 10 mmol/L (8-16); Blood Urea Nitrogen 3 mg/dL (7-17); Calcium 8.7 mg/dL (8.4-10.2); Carbon Dioxide 30 mmol/L (22-30); Chloride 85 mmol/L (98-107); Estimated Glomerular Filt Rate > 60; Glucose 102 mg/dL (65-110); Potassium 3.5 mmol/L (3.4-5.0); Sodium 125 mmol/L (137-145)
[2023-06-07 16:42] LABS: Percent Iron Saturation 83 % (20-50)
[2023-06-07 17:46] LABS: Folic Acid 12.3 ng/mL (2.76->20); Vitamin B12 > 1000.0 pg/mL (239-931)
== END 2023-06-07 12:47 | disposition home or self-care (01) ==
LOC: ANHLAB 12:49
PROVIDERS: PCP Family Medicine; Visit Provider Internal Medicine Hematology & Oncology
DX: D64.9 Anemia, unspecified (principal)
CPT/HCPCS: 36415; 80048; 82607; 82728; 82746; 83540; 83550; 85025

== ENCOUNTER 2023-06-17 13:15 | Outpatient (CLI) | payer MEDICARE, OTHER, SELFPAY ==
[2023-06-17 13:34] LABS: Basophils Absolute Auto 0.1 K/mm3 (0.0-0.1); Basophils Percent Auto 1.4 % (0.2-1.2); Eosinophils Percent Auto 0.6 % (0-4.4); Hematocrit 30.7 % (37.0-47.0); Hemoglobin 10.9 g/dL (12.0-15.0); Immature Granulocyte Absolute 0.07 K/mm3 (0.00-0.031); Immature Granulocyte Percent A 1.1 % (0-0.5); Lymphocytes Absolute Auto 1.05 K/mm3 (0.9-3.2); Mean Corpuscular HGB Conc 35.5 g/dl (32-36); Mean Corpuscular Hemoglobin 34.6 pg (26-34); Mean Corpuscular Volume 97.5 fl (80-100); Mean Platelet Volume 8.8 fl (7.4-10.4); Monocytes Absolute Auto 0.6 K/mm3 (0.1-0.6); Monocytes Percent Auto 9.8 % (2.6-8.5); Neutrophils Absolute Auto 4.7 K/mm3 (1.3-6.7); Neutrophils Percent Auto 71.1 % (45.5-73.1); Platelet Count Result 320 k/mm3 (150-375); Red Blood Count 3.15 M/mm3 (4.2-5.4); Red Cell Distribution Width 12.7 % (11.5-14.5); White Blood Count 6.6 K/mm3 (4.5-10.0)
[2023-06-17 13:37] LABS: Blood Urea Nitrogen 6 mg/dL (8-26); Carbon Dioxide 22 mmol/L (22-30); Chloride 89 mmol/L (98-109); Estimated Glomerular Filt Rate > 60; Glucose 82 mg/dL (70-105); Ionized Calcium (POC) 1.18 mmol/L (1.11-1.31); Sodium 127 mmol/L (138-146)
[2023-06-17 16:36] LABS: Iron 100 ug/dL (37-170)
[2023-06-17 16:48] LABS: Percent Iron Saturation 95 % (20-50)
[2023-06-17 17:57] LABS: Folic Acid 5.2 ng/mL (2.76->20); Vitamin B12 > 1000.0 pg/mL (239-931)
== END 2023-06-17 13:16 | disposition home or self-care (01) ==
LOC: ANHLAB 13:17
PROVIDERS: PCP Family Medicine; Visit Provider Internal Medicine Hematology & Oncology
DX: D64.9 Anemia, unspecified (principal)
CPT/HCPCS: 36415; 80047; 80069; 82607; 82728; 82746; 83540; 83550; 85025

== ENCOUNTER 2023-06-17 14:38 | Outpatient (CLI) | payer MEDICARE, OTHER, SELFPAY ==
[2023-06-17 15:39] LABS: Albumin Level 3.6 g/dL (3.5-5.1); Anion Gap 11 mmol/L (8-16); Blood Urea Nitrogen 7 mg/dL (7-17); Calcium 9.3 mg/dL (8.4-10.2); Carbon Dioxide 26 mmol/L (22-30); Chloride 89 mmol/L (98-107); Estimated Glomerular Filt Rate > 60; Glucose 87 mg/dL (65-110); Phosphorus 3.3 mg/dL (2.5-4.5); Potassium 3.9 mmol/L (3.4-5.0); Sodium 126 mmol/L (137-145)
== END 2023-06-17 14:39 | disposition home or self-care (01) ==
LOC: ANHLAB 14:40
PROVIDERS: PCP Family Medicine; Visit Provider Internal Medicine Nephrology
DX: E87.1 Hypo-osmolality and hyponatremia (principal)
CPT/HCPCS: 36415; 80069

== ENCOUNTER 2023-09-23 13:32 | Inpatient (IN) | payer MEDICARE, OTHER, SELFPAY ==
[2023-09-23] VITALS (7 sets, daily range): BP systolic 111–150; BP diastolic 67–84; PULSE 91–132; RESP 12–20; TEMP 36.6; O2SAT 100
--- NOTE | ~2023-09-23 | XR_ITS ---
EXAMINATION: XR chest 2V Exam Date/Time: 09/23/2023 16:05 CDT HISTORY: shortness of breath, WEAKNESS X 2 MONTHS, HX COPD Comparison: 05/21/2022, report only; CT abdomen pelvis 02/25/2023. RESULT: Lines, tubes, and devices: Partially visualized thoracolumbar fusion hardware with stable extravasat ed vertebroplasty cement. Right shoulder arthroplasty. Lungs and pleura: Clear. Cardiomediastinal silhouette: Stable. Other: No acute osseous or upper abdominal finding. IMPRESSION: No acute cardiopulmonary process. Reviewed, dictated and finalized at location K.
--- NOTE | ~2023-09-23 | US_ITS ---
EXAMINATION: US abdomen limited DATE: 09/24/2023 10:03 INDICATION: Gallbladder hydrops. Abnormal liver function tests. TECHNIQUE: Multiple grayscale and Doppler ultrasound images of the abdomen were obtained. COMPARISON: CT abdomen and pelvis 09/23/2023 FINDINGS: The visualized portions of the head, body, and tail of the pancreas are normal. There is di ffuse hepatic steatosis. There is normal flow in main portal vein. The gallbladder is distended. No g allstones, gallbladder wall thickening, or sonographic Pace sign. The common duct is normal and garret sures 3 mm. IMPRESSION: 1. Diffuse hepatic steatosis. 2. Gallbladder distention, which may be secondary to fasting. Reviewed, dictated and finalized at location E.
--- NOTE | ~2023-09-23 | NM_ITS ---
EXAMINATION: NM hepatobiliary w pharm DATE: 09/26/2023 10:13 INDICATION: Gallbladder distention and transaminitis COMPARISON: Ultrasound dated 09/24/[address] dated 09/23/2023 TECHNIQUE: 5.1 mCi Tc-99m mebrofenin (Choletec) was administered intravenously. Scintigraphic images of the abdomen were obtained for one hour. 1 mcg sincalide (Kinevac) was administered by slow intrav enous infusion, and imaging was continued for 30 minutes. Gallbladder ejection fraction was calculate d by the technologist. FINDINGS: There is normal clearance of radiotracer from the blood pool. There is homogeneous tracer uptake by t he liver. Activity progresses to the gallbladder and bowel. The gallbladder ejection fraction (GBEF) is 88% (normal 10-90%, but most patient with gallbladder dysfunction have GBEF < 35% which does over lap with the normal range). IMPRESSION: 1. Normal hepatobiliary scan. Reviewed, dictated and finalized at location A.
--- NOTE | ~2023-09-23 | CT_ITS ---
EXAMINATION: CT abdomen pelvis w con DATE: 09/23/2023 20:20 INDICATION: lower abdominal pain with voimiting TECHNIQUE: Computed tomography (CT) of the abdomen and pelvis was performed with 100 mL Omnipaque-350 intravenous contrast. Automated exposure control and iterative reconstruction technique were employe d. The dose-length product was 190.29 mGy-cm. COMPARISON: 02/25/2023. FINDINGS: Exam limited by beam hardening artifact from spinal hardware. Lower thorax: Emphysematous and senescent change. Liver: Enlarged. Diffuse fatty infiltration. Biliary/Gallbladder: Mild gallbladder enlargement, no inflammatory changes. No bile duct dilation. Pancreas: Pancreatic atrophy. Spleen: Normal. Adrenals:No mass. Kidneys: No suspicious mass, obstructing stone, or hydronephrosis. GI tract: Mild distal esophageal and gastric wall edema. Uncomplicated duodenal diverticulum. No smal l or large bowel dilation. Normal appendix. Mesentery/Peritoneum: No ascites, mass, or free air. Moderate mesenteric edema. Retroperitoneum: No mass. Atherosclerotic abdominal aortic and/or arterial calcifications. Pelvis: Absent uterus. Ovaries not confidently identified. Mild urinary bladder wall thickening. Soft Tissues: Mild body wall edema. Bones: No acute osseous finding. Extensive thoracolumbar fusion hardware. The right L5 pedicle screw extends lateral to the L5 cortex, presumably a chronic finding. No hardware fracture. No perihardwar e lucency to suggest loosening or infection. Vertebroplasty cement at L3. Venous extravasation of yuliya ent. L5-S1 interbody device in good position. IMPRESSION: Mild esophagitis/gastritis. Hepatomegaly with steatosis. Gallbladder hydrops, may be secondary to fasting or obstruction. No obstructing stone or mass detecte d. No gallbladder inflammatory change. Possible cystitis, correlate with urinalysis. Reviewed, dictated and finalized at location K. IMPRESSION: Mild esophagitis/gastritis. Hepatomegaly with steatosis. Gallbladder hydrops, may be secondary to fasting or obstruction. No obstructing stone or mass detected. No gallbladder inflammatory change. Possible cystitis, correlate with urinalysis.
--- NOTE | 2023-09-23 14:49 | ED.GENADULT ---
HPI - General Adult General Chief complaint: Weakness <Magalis Heredia, RADIOLOGY DIRECTOR - Last Filed: 09/23/23 14:56> Stated complaint: nausea, poor intake x 2 months, weak <Magalis Dawson October RADIOLOGY DIRECTOR - Last Filed: 09/23/23 14:56> Time Seen by Provider: 09/23/23 14:49 <Magalis Dawson October, RADIOLOGY DIRECTOR - Last Filed: 09/23/23 14:56> Focused HPI: Rosemarie Chung is a 68 y/o female who presents with reports of not being able to eat food for about 2 months, she states that she hasn't been able to keep liquids down now for a week or so. She denies abdominal pain. Denies fevers/ she reports feeling severely dehydrated states that she had back surgery at [place] in July and then she went to a rehab facility and came home and she has not been eating since the surgery. She states no appetite with stomach spasms / dry heaving from water. GENERAL: frail/ ill HEAD: Normocephalic, atraumatic. CHEST: Clear to auscultation. ?No respiratory distress. HEART: Regular rate and rhythm.? NEURO: ?Alert and oriented x3. Patient screened in triage and initial orders placed.? ?Additional care and disposition to be based upon?diagnostic testing and treatment. <Magalis Heredia, RADIOLOGY DIRECTOR - Last Filed: 09/23/23 14:56> History of Present Illness HPI narrative: Agree with the HPI <Terrell He MD - Last Filed: 09/23/23 22:52> Related Data Home medications: Home Medications Medication Instructions Recorded Confirmed estradiol 1 mg tablet 1 mg PO DAILY 11/25/19 08/13/23 multivitamin-ferrous 1 tablet PO DAILY 05/28/21 08/13/23 fumarate-folic acid 18 mg-400 mcg tablet (Centrum Complete) vitamin E 268 mg (400 unit) capsule 400 unit PO DAILY 05/28/21 08/13/23 ascorbic acid (vitamin C) 500 mg 1,000 mg PO DAILY 12/26/21 08/13/23 tablet calcium carb-vitamin D3 ER 600 mg 2 tablet PO DAILY 05/22/22 08/13/23 (1,500 mg)-500 unit tablet,ER 24 hr cholecalciferol (vitamin D3) 50 50 mcg PO DAILY 05/22/22 08/13/23 mcg (2,000 unit) tablet ferrous sulfate 140 mg (45 mg 140 mg PO DAILY 05/22/22 08/13/23 iron) tablet,extended release hydrocodone 5 mg-acetaminophen 325 1 tablet PO BID PRN Pain 05/22/22 08/13/23 mg tablet magnesium 250 mg tablet 250 mg PO DAILY 05/22/22 08/13/23 potassium 99 mg tablet 99 mg PO DAILY 05/22/22 08/13/23 mecobalamin (vitamin B12) 500 mcg 500 mcg PO DAILY 08/06/22 08/13/23 chewable tablet <Magalis Heredia, RADIOLOGY DIRECTOR - Last Filed: 09/23/23 14:56> Allergies/adverse reactions: Allergies Allergy/AdvReac Type Severity Reaction Status Date / Time Chlorhexidine AdvReac Severe Itching Uncoded 09/23/23 18:32 <Magalis Heredia, RADIOLOGY DIRECTOR - Last Filed: 09/23/23 14:56> Review of Systems Review of Systems: All systems reviewed & are unremarkable except as noted in HPI and below <Terrell He MD - Last Filed: 09/23/23 22:52> Constitutional: Constitutional: Denies chills, Reports fatigue and Denies fever(s) <Terrell He MD - Last Filed: 09/23/23 22:52> ENT: Reports system reviewed and no additional complaints, except as documented <Terrell He MD - Last Filed: 09/23/23 22:52> Cardiovascular: Cardiovascular: Reports no additional cardiovascular complaints <Terrell He MD - Last Filed: 09/23/23 22:52> Respiratory: Respiratory: Reports no additional respiratory complaints <Terrell He MD - Last Filed: 09/23/23 22:52> Gastrointestinal: Gastrointestinal: Reports abdominal pain, Denies constipation, Denies diarrhea, Reports nausea and Reports vomiting <Terrell He MD - Last Filed: 09/23/23 22:52> Genitourinary: Genitourinary: Reports no additional female genitourinary complaints <Terrell He MD - Last Filed: 09/23/23 22:52> Integumentary/Breasts: Skin/Breast: Reports system reviewed and no additional complaints, except as docu <Terrell He MD - Last Filed: 09/23/23 22:52> [facility] Past Medical History Medical History: Medical History (Reviewed 08/08/23 @ 14:05 by
--- NOTE | 2023-09-23 14:56 | ECG_ITS ---
SEE SCANNED COPY FOR CONFIRMED REPORT MTDD
[2023-09-23 16:13] LABS: Basophils Absolute Auto 0.1 K/mm3 (0.0-0.1); Basophils Percent Auto 2.5 % (0.2-1.2); Eosinophils Absolute Auto 0.1 K/mm3 (0-0.3); Eosinophils Percent Auto 3.2 % (0-4.4); Hematocrit 34.1 % (37.0-47.0); Hemoglobin 11.6 g/dL (12.0-15.0); Immature Granulocyte Absolute 0.01 K/mm3 (0.00-0.031); Immature Granulocyte Percent A 0.2 % (0-0.5); Lymphocytes Absolute Auto 1.14 K/mm3 (0.9-3.2); Lymphocytes Percent Auto 26.1 % (18.3-44.2); Mean Corpuscular Volume 96.9 fl (80-100); Mean Platelet Volume 9.9 fl (7.4-10.4); Monocytes Absolute Auto 0.4 K/mm3 (0.1-0.6); Monocytes Percent Auto 10.1 % (2.6-8.5); Neutrophils Absolute Auto 2.5 K/mm3 (1.3-6.7); Neutrophils Percent Auto 57.9 % (45.5-73.1); Platelet Count Result 342 k/mm3 (150-375); Red Blood Count 3.52 M/mm3 (4.2-5.4); Red Cell Distribution Width 14.9 % (11.5-14.5); White Blood Count 4.4 K/mm3 (4.5-10.0)
[2023-09-23 16:26] LABS: Alanine Aminotransferase 47 U/L (6-35); Albumin Level 4.1 g/dL (3.5-5.1); Alkaline Phosphatase 216 U/L (38-126); Anion Gap 15 mmol/L (4-12); Aspartate Amino Transferase 152 U/L (14-36); Bilirubin,Total 0.8 mg/dL (0.2-1.3); Blood Urea Nitrogen 3 mg/dL (7-17); Calcium 9.4 mg/dL (8.4-10.2); Carbon Dioxide 22 mmol/L (22-30); Chloride 90 mmol/L (98-107); Estimated CRCL calculation 51 ml/min; Estimated Glomerular Filt Rate > 60; Glucose 94 mg/dL (65-110); Lipase 51 U/L (23-300); Potassium 3.1 mmol/L (3.4-5.0); Sodium 127 mmol/L (137-145)
[2023-09-23 16:37] LABS: Troponin I < 0.012 ng/mL (0.000-0.034)
[2023-09-23] MEDS: SODIUM CHLORIDE 0.9% IV 1,000 ML 999 ML IV CONT (18:30)
[2023-09-23] MEDS: ONDANSETRON INJ 4 MG/2 ML VIAL IV PUSH (18:30)
[2023-09-23] MEDS: FAMOTIDINE 20 MG/2 ML VIAL IV PUSH (19:42)
--- NOTE | 2023-09-23 19:46 | PC.NURSE ---
Pt ambulatory to restroom x 1 assist
--- NOTE | 2023-09-23 19:47 | PC.NURSE ---
Pt able to ambulate with assistance to restroom to provide urine sample
[2023-09-23 20:11] LABS: Appearance Urine Clear (Clear); Bilirubin Urine Negative (Negative); Blood Urine Negative (Negative); Color Urine Yellow (Yellow); Glucose Urine UA Negative (Negative); Ketones Urine Negative (Negative); Leukocyte Esterase Ur Negative LEU/UL (Negative); Nitrate Urine Negative (Negative); Protein Urine Negative (Negative); Specific Grav Ur 1.011 (1.001-1.035); Urobilinogen Urine 0.2 mg/dL (<2.0)
[2023-09-23 20:13] LABS: Add Urine Microscopic? NO
--- NOTE | 2023-09-23 21:56 | PC.NURSE ---
Pt c/o increased nausea. EDP Neri notified.
[2023-09-23] MEDS: PROMETHAZINE HCL 25 MG/ML AMPUL 12.5 MG IV PUSH (22:23)
[2023-09-23] MEDS: POTASSIUM CHLORIDE INJ 40 MEQ in SODIUM CHLORIDE 0.9% IV 500 ML 130 MEQ IVPB (22:23)
--- NOTE | 2023-09-23 22:47 | PM.IMHP ---
H&P: HPI History of Present Illness Date/Time: 09/23/23 22:47 Chief Complaint: nausea/vomiting Narrative: this is a 68-year-old female with past medical history significant for COPD/ emphysema, degenerative disc disease, fibromyalgia, gastroesophageal reflux disease, osteoarthritis, hyperlipidemia. Patient is status post spinal fusion 2 weeks ago, patient has had nausea vomiting for 2 weeks has had weight loss of roughly 30 lb, poor per orally intake, poor appetite. patient denies any fevers, rigors, chills, cough, sputum production, coffee-ground emesis, hematemesis, melena. EXAMINATION:? XR chest 2V Exam Date/Time:? 09/23/2023 16:05 CDT HISTORY: shortness of breath, WEAKNESS X 2 MONTHS, HX COPD ? Comparison:? 05/21/2022, report only; CT abdomen pelvis 02/25/2023. RESULT: Lines, tubes, and devices:? Partially visualized thoracolumbar fusion hardware with stable extravasated vertebroplasty cement. Right shoulder arthroplasty. Lungs and pleura:? Clear. Cardiomediastinal silhouette:? Stable. Other:? No acute osseous or upper abdominal finding. ? IMPRESSION: No acute cardiopulmonary process. EXAMINATION: CT abdomen pelvis w con DATE: 09/23/2023 20:20 INDICATION: lower abdominal pain with voimiting TECHNIQUE: Computed tomography (CT) of the abdomen and pelvis was performed with 100 mL Omnipaque-350 intravenous contrast. Automated exposure control and iterative reconstruction technique were employed. The dose-length product was 190.29 mGy-cm. COMPARISON: 02/25/2023. FINDINGS: Exam limited by beam hardening artifact from spinal hardware. Lower thorax: Emphysematous and senescent change. Liver: Enlarged. Diffuse fatty infiltration.? Biliary/Gallbladder: Mild gallbladder enlargement, no inflammatory changes. No bile duct dilation. Pancreas: Pancreatic atrophy. Spleen: Normal. Adrenals:No mass. Kidneys: No suspicious mass, obstructing stone, or hydronephrosis. GI tract: Mild distal esophageal and gastric wall edema. Uncomplicated duodenal diverticulum. No small or large bowel dilation. Normal appendix. Mesentery/Peritoneum: No ascites, mass, or free air. Moderate mesenteric edema. Retroperitoneum: No mass. Atherosclerotic abdominal aortic and/or arterial calcifications. Pelvis: Absent uterus. Ovaries not confidently identified. Mild urinary bladder wall thickening. Soft Tissues: Mild body wall edema. Bones:? No acute osseous finding. Extensive thoracolumbar fusion hardware. The right L5 pedicle screw extends lateral to the L5 cortex, presumably a chronic finding. No hardware fracture. No perihardware lucency to suggest loosening or infection. Vertebroplasty cement at L3. Venous extravasation of cement. L5-S1 interbody device in good position. IMPRESSION: Mild esophagitis/gastritis. Hepatomegaly with steatosis. Gallbladder hydrops, may be secondary to fasting or obstruction. No obstructing stone or mass detected. No gallbladder inflammatory change. Possible cystitis, correlate with urinalysis. Review of Systems Review of Systems: Nausea vomiting weight loss PMFSH Past Medical History Medical History Anxiety COPD with emphysema Degenerative disc disease Fibromyalgia Gastroesophageal reflux disease Gastroesophageal reflux disease without esophagitis Hyperlipidemia Osteoarthritis Vitamin D deficiency, unspecified Surgical History Surgical History History of cardiac catheterization (02/2021) Right coronary dominant circulation with no evidence of coronary disease. History of section History of colonoscopy with polypectomy History of hysterectomy History of kyphoplasty History of repair of right rotator cuff History of tubal ligation Status post excision of Hernández's neuroma Family History Family History Father Family his
[2023-09-24] VITALS (9 sets, daily range): BP systolic 116–165; BP diastolic 61–84; PULSE 81–116; RESP 13–21; TEMP 36.2–36.7; O2SAT 95–100; BMI 21.2
[2023-09-24] MEDS: ONDANSETRON INJ 4 MG/2 ML VIAL IV PUSH ×2 (00:42→20:28)
[2023-09-24] MEDS: MORPHINE SULFATE (*CRX) 2 MG/ML INJ IV PUSH ×6 (00:42→20:28)
[2023-09-24] MEDS: SODIUM CHLORIDE 0.9% IV 1,000 ML 125 ML IV CONT ×2 (02:51→15:13)
--- NOTE | 2023-09-24 07:58 | P.CONGI_ITS ---
I, Vickey Rogers MD, have provided a substantive portion of the care of this patient and discussed the patient with my Nurse Practitioner. I have reviewed any new relevant radiographic and laboratory results including medications. I agree with her documentation as noted below.?I personally performed the medical decision making and much of the history and exam for this encounter. briefly, here with nausea and just not feeling like eating- food does not taste same, this has been going on since , also weight loss. Had EGD but many years ago. At home she is using protonix and hyoscyamine. She came here feeling dehydrated, CT scan showed possible mild esophagitis, fatty liver (she says that is a social drinker- noted mild elevation of transaminases). Plan is iv protonix, EGD to assess. More recommendations after scope Assessment and Plan Assessment and plan (1) Gallbladder hydrops: Code(s): K82.1 - Hydrops of gallbladder Status: Acute (2) Irritable bowel syndrome with diarrhea: Code(s): K58.0 - Irritable bowel syndrome with diarrhea Status: Acute (3) Gastroesophageal reflux disease without esophagitis: Code(s): K21.9 - Gastro-esophageal reflux disease without esophagitis Status: Acute (4) Weight loss: Code(s): R63.4 - Abnormal weight loss Status: Acute (5) Elevated LFTs: Code(s): R79.89 - Other specified abnormal findings of blood chemistry Status: Acute (6) Nausea and vomiting: Qualifiers: Vomiting type: unspecified Qualified Code(s): R11.2 - Nausea with vomiting, unspecified Code(s): R11.2 - Nausea with vomiting, unspecified Status: Inactive (7) Hepatic steatosis: Code(s): K76.0 - Fatty (change of) liver, not elsewhere classified Status: Acute (8) Dysphagia: Qualifiers: Dysphagia type: esophageal phase Qualified Code(s): R13.19 - Other dysphagia Code(s): R13.10 - Dysphagia, unspecified Status: Acute (9) Hyponatremia: Code(s): E87.1 - Hypo-osmolality and hyponatremia Status: Acute (10) Hypokalemia: Code(s): E87.6 - Hypokalemia Status: Acute Plan 1) Nausea/vomiting /GERD with esophagitis /gastritis /weight loss/ appetite loss/ early satiety/dysphagia: Per patient's last EGD was > [address] on admission showed mild mild distal esophageal and gastric wall edema and uncomplicated duodenal diverticulum. Her symptoms started around of last year. patient states that she has lost 30 lb since May but weight loss has increased recently due to poor p.o. intake. She is having postprandial nausea and vomiting immediately after starting a meal. Over the past few weeks she has been having intermittent dysphagia to large pills. She is on Protonix 40 mg daily but over the past few weeks her reflux has been more frequent with multiple episodes of breakthrough reflux each week and she has been using Tums and Mylanta as needed. Admits to appetite loss and early satiety. She has tried supplementing with Ensure but has been unable to tolerate that either. patient has not eaten anything for the past 1.5 days. She is on aspirin 81 mg daily but denies any other chronic NSAID use. She is not on any anticoagulation. She does have COPD but states that she rarely uses her inhalers due to him being too expensive. * Continue b.i.d. PPI * Keep patient NPO * EGD today * Continue supportive care with antiemetics * If EGD is unremarkable may consider gastric emptying study 2) Abnormal imaging digestive /gallbladder hydrops: CT showed gallbladder
--- NOTE | 2023-09-24 07:58 | WPDGICN ---
Assessment and Plan Assessment and plan (1) Gallbladder hydrops: Code(s): K82.1 - Hydrops of gallbladder Status: Acute (2) Irritable bowel syndrome with diarrhea: Code(s): K58.0 - Irritable bowel syndrome with diarrhea Status: Acute (3) Gastroesophageal reflux disease without esophagitis: Code(s): K21.9 - Gastro-esophageal reflux disease without esophagitis Status: Acute (4) Weight loss: Code(s): R63.4 - Abnormal weight loss Status: Acute (5) Elevated LFTs: Code(s): R79.89 - Other specified abnormal findings of blood chemistry Status: Acute (6) Nausea and vomiting: Qualifiers: Vomiting type: unspecified Qualified Code(s): R11.2 - Nausea with vomiting, unspecified Code(s): R11.2 - Nausea with vomiting, unspecified Status: Inactive (7) Hepatic steatosis: Code(s): K76.0 - Fatty (change of) liver, not elsewhere classified Status: Acute (8) Dysphagia: Qualifiers: Dysphagia type: esophageal phase Qualified Code(s): R13.19 - Other dysphagia Code(s): R13.10 - Dysphagia, unspecified Status: Acute (9) Hyponatremia: Code(s): E87.1 - Hypo-osmolality and hyponatremia Status: Acute (10) Hypokalemia: Code(s): E87.6 - Hypokalemia Status: Acute Plan 1) Nausea/vomiting /GERD with esophagitis /gastritis /weight loss/ appetite loss/ early satiety/dysphagia: Per patient's last EGD was > [address] on admission showed mild mild distal esophageal and gastric wall edema and uncomplicated duodenal diverticulum. Her symptoms started around of last year. patient states that she has lost 30 lb since May but weight loss has increased recently due to poor p.o. intake. She is having postprandial nausea and vomiting immediately after starting a meal. Over the past few weeks she has been having intermittent dysphagia to large pills. She is on Protonix 40 mg daily but over the past few weeks her reflux has been more frequent with multiple episodes of breakthrough reflux each week and she has been using Tums and Mylanta as needed. Admits to appetite loss and early satiety. She has tried supplementing with Ensure but has been unable to tolerate that either. patient has not eaten anything for the past 1.5 days. She is on aspirin 81 mg daily but denies any other chronic NSAID use. She is not on any anticoagulation. She does have COPD but states that she rarely uses her inhalers due to him being too expensive. Continue b.i.d. PPI Keep patient NPO EGD today Continue supportive care with antiemetics If EGD is unremarkable may consider gastric emptying study 2) Abnormal imaging digestive /gallbladder hydrops: CT showed gallbladder hydrops but no signs of obvious obstructing stone or mass or inflammatory changes. These hydrops were also noted on CT in February of 2023 but now she has elevated LFTs but not a clear cholestatic pattern. Patient recently had a spinal fusion 2 months which limits us from doing an MRCP. Upper abdominal x-ray ordered T/C surgical consult if no indication of stone, obstruction, or biliary dilatation 3) Elevated LFT's/hepatic steatosis: Patient with intermittent in LFT elevations since May of 2022 but LFTs on admission were more elevated showing total bilirubin 0.8, alkaline phosphatase 216, AST 152, and ALT 47. Lipase normal at 51. CT showed hepatomegaly and diffuse fatty infiltration. patient admits to moderate beer consumption but states that she has consumed no alcohol since her surgery 2 months ago. Liver work up ordered Ultrasound will also evaluate liver Further recs to follow work up 4) Hyponatremia/hypokalemia: Patient with chronic hyponatremia dating back to 2019. Improved but still low since admission 127-129. Potassium 3.1-->3.8. Primary care team to continue monitoring and correct GI Consult Note Consult date/time: 09/23/
[2023-09-24 09:05] LABS: Hematocrit 32.2 % (37.0-47.0); Hemoglobin 10.8 g/dL (12.0-15.0); Mean Corpuscular HGB Conc 33.5 g/dl (32-36); Mean Corpuscular Hemoglobin 33.2 pg (26-34); Mean Corpuscular Volume 99.1 fl (80-100); Mean Platelet Volume 10.2 fl (7.4-10.4); Platelet Count Result 306 k/mm3 (150-375); Red Blood Count 3.25 M/mm3 (4.2-5.4); Red Cell Distribution Width 15.2 % (11.5-14.5); White Blood Count 4.9 K/mm3 (4.5-10.0)
[2023-09-24] MEDS: PANTOPRAZOLE SODIUM IV 40 MG VIAL IV PUSH (09:06)
[2023-09-24 09:15] LABS: Alanine Aminotransferase 39 U/L (6-35); Albumin Level 3.3 g/dL (3.5-5.1); Alkaline Phosphatase 179 U/L (38-126); Anion Gap 4 mmol/L (4-12); Aspartate Amino Transferase 109 U/L (14-36); Bilirubin,Total 0.9 mg/dL (0.2-1.3); Blood Urea Nitrogen 6 mg/dL (7-17); Calcium 8.3 mg/dL (8.4-10.2); Carbon Dioxide 27 mmol/L (22-30); Chloride 98 mmol/L (98-107); Estimated CRCL calculation 51 ml/min; Estimated Glomerular Filt Rate > 60; Glucose 83 mg/dL (65-110); Potassium 3.8 mmol/L (3.4-5.0); Sodium 129 mmol/L (137-145)
[2023-09-24 09:19] LABS: Magnesium 1.5 mg/dL (1.6-2.3)
--- NOTE | 2023-09-24 10:28 | PM.CNGS ---
Assessment and Plan Assessment and plan (1) Abnormal findings on imaging of biliary tract: Code(s): R93.2 - Abnormal findings on diagnostic imaging of liver and biliary tract Status: Acute Assessment and Plan: She has had progressive symptoms over the past 6 months and is no longer able to tolerate a diet. She denies any abdominal pain and only has mild tenderness in the epigastric area on exam. She reports vomiting within 5 minutes of eating and even drinking liquids. She has had multiple abdominal ultrasounds and CT scans over the past few years that have showed mild gallbladder distention or hydrops, but no signs of cholecystitis, no gallstones/sludge. Her CT scan and RUQ ultrasound on this admission were reviewed and her gallbladder appears the same as it did on previous imaging. There are still no findings of cholecystitis or cholelithiasis. Discussed with the patient and her family that her presentation and exam would be atypical for gallbladder disease and there are no changes on her imaging. Agree with GI consultation and endoscopic evaluation. If all of her GI workup is negative, could also consider a HIDA scan, but agree with GI workup initially. Will continue to follow along. (2) Intractable vomiting: Code(s): R11.10 - Vomiting, unspecified Status: Acute Assessment and Plan: This is the reason for her admission. She has had progressively worsening symptoms of nausea and vomiting over the past 6 months. The past 2 weeks, she has been unable to tolerate even liquids. GI following, agree with EGD and further GI workup. See plan above. (3) Weight loss: Code(s): R63.4 - Abnormal weight loss Status: Acute Assessment and Plan: About 40 lbs in the past 6 months that the patient feels is due to inability to tolerate a diet. GI following and planning EGD today. She also has not had a colonoscopy in over 10 years per the daughter. (4) Transaminitis: Code(s): R74.01 - Elevation of levels of liver transaminase levels Status: Chronic Assessment and Plan: AST, ALT, and alk phos mildly elevated. LFTs have been elevated on previous labs as far back as 2019. This appears more chronic and less likely related to her gallbladder. GI following, agree with further workup. (5) COPD (chronic obstructive pulmonary disease): Qualifiers: COPD type: unspecified COPD Qualified Code(s): J44.9 - Chronic obstructive pulmonary disease, unspecified Code(s): J44.9 - Chronic obstructive pulmonary disease, unspecified Status: Chronic (6) Fibromyalgia: Code(s): M79.7 - Fibromyalgia Status: Acute (7) Gastroesophageal reflux disease: Qualifiers: Esophagitis presence: esophagitis presence not specified Qualified Code(s): K21.9 - Gastro-esophageal reflux disease without esophagitis Code(s): K21.9 - Gastro-esophageal reflux disease without esophagitis Status: Acute Plan I have discussed the patient's case and plan of care with Dr. Ruggiero. History of Present Illness Consult details Consult date: 09/24/23 Reason for consult: other (Gallbladder hydrops) Requesting physician: Terrell He MD Narrative: This is a 68-year-old woman with COPD, fibromyalgia, hyperlipidemia, and IBS, who we have been asked to see in surgical consultation for gallbladder hydrops. She recently had an anterior and posterior thoraco lumbar reconstruction with fusion from T10 to the sacrum and ilium in July at [facility]. Leading up to surgery, she has been having issues with food aversion, nausea, and vomiting since April of 2023. Her symptoms have progressively gotten worse. Her diet has been limited and over the past 2 months, she has primarily only been able to tolerate liquids and Ensure. Her reports that even if he gets her to eat Jell-O in the morning, she typically cannot keep this down. She reports vomiting within 5 minutes of the eating an
[2023-09-24] MEDS: LACTATED RINGERS 1,000 ML 150 ML IV CONT (10:33)
[2023-09-24 10:48] LABS: HAV RESULT Negative (Negative); Hepatitis B Core IgM Result Negative (Negative)
[2023-09-24 10:56] LABS: Hepatitis B Surface Antigen Negative (Negative)
[2023-09-24 10:58] LABS: Hepatitis C Virus Antibody Negative (Negative)
--- NOTE | 2023-09-24 11:15 | WPDANESEPPF ---
Anes - Initial Pre Proc Eval Procedure: Operation Date: 09/24/23 15:30 Proposed Procedures p Esophagogastroduodenoscopy - Vickey Rogers MD Date/Time: 09/24/23 11:15 Surgeon: Jordan Iqbal MD Pre Op Diagnosis: Gallbladder hydrops/vomiting/esophagitis Patient Data Age: 68 Gender: F Height: 1.55 m Weight: 51 kg Last Vital Signs Temp 97.2 F L 09/24/23 10:35 Pulse 90 09/24/23 10:35 Resp 18 09/24/23 10:35 BP 150/62 H 09/24/23 10:35 Pulse Ox 99 09/24/23 10:35 O2 Del Method Room Air 09/24/23 10:35 Allergies Allergy/AdvReac Type Severity Reaction Status Date / Time Chlorhexidine AdvReac Severe Itching Uncoded 09/24/23 10:33 Home Medications Medication Instructions Recorded Confirmed Type estradiol 1 mg tablet 1 mg PO DAILY 11/25/19 09/24/23 History nebulizer and compressor #1 ea 06/02/21 09/24/23 Rx ascorbic acid (vitamin C) 500 mg 1,000 mg PO DAILY 12/26/21 09/24/23 History tablet aspirin 81 mg tablet,delayed 81 mg PO QAM 30 days #30 tabs 01/11/22 09/24/23 Rx release albuterol sulfate 90 mcg/actuation 2 puff inhalation Q4H PRN 01/30/22 09/24/23 Rx aerosol inhaler shortness of breath or wheezing #1 ea ipratropium 0.5 mg-albuterol 3 mg 3 ml inhalation QID PRN shortness 01/30/22 09/24/23 Rx (2.5 mg base)/3 mL nebulization of breath #90 mL soln calcium carb-vitamin D3 ER 600 mg 2 tablet PO DAILY 05/22/22 09/24/23 History (1,500 mg)-500 unit tablet,ER 24 hr cholecalciferol (vitamin D3) 50 50 mcg PO DAILY 05/22/22 09/24/23 History mcg (2,000 unit) tablet magnesium 250 mg tablet 250 mg PO DAILY 05/22/22 09/24/23 History mecobalamin (vitamin B12) 500 mcg 500 mcg PO DAILY 08/06/22 09/24/23 History chewable tablet atorvastatin 20 mg tablet 20 mg PO QHS #90 tabs 02/27/23 09/24/23 Rx pantoprazole 40 mg tablet,delayed 40 mg PO DAILY #90 tabs 03/19/23 09/24/23 Rx release furosemide 20 mg tablet 20 mg PO BID #60 tabs 05/22/23 09/24/23 Rx potassium chloride 20 mEq 20 meq PO DAILY #30 tabs 05/31/23 09/24/23 Rx tablet,extended release(part/cryst) (Klor-Con M) gabapentin 100 mg capsule 100 mg PO TID #90 caps 08/05/23 09/24/23 Rx hyoscyamine sulfate 0.125 mg tablet 0.125 mg PO Q4H PRN Cramps #90 tabs 08/19/23 09/24/23 Rx lorazepam 0.5 mg tablet 0.5 mg PO TID PRN anxiety #70 tabs 09/03/23 09/24/23 Rx methocarbamol 750 mg tablet See Rx Instructions .Route 09/24/23 09/24/23 History .COMPLEX PRN Muscle Spasm Laboratory Tests 09/23/23 09/23/23 09/24/23 16:02 19:53 08:30 WBC 4.4 L K/mm3 (4.5-10.0) RBC 3.52 L M/mm3 (4.2-5.4) Hgb 11.6 L g/dL (12.0-15.0) Hct 34.1 L % (37.0-47.0) MCV 96.9 fl (80-100) MCH 33.0 pg (26-34) MCHC 34.0 g/dl (32-36) RDW 14.9 H % (11.5-14.5) Plt Count 342 k/mm3 (150-375) MPV 9.9 fl (7.4-10.4) Immature Gran % (Auto) 0.2 % (0-0.5) Neut % (Auto) 57.9 % (45.5-73.1) Lymph % (Auto) 26.1 % (18.3-44.2) Ness % (Auto) 10.1 H % (2.6-8.5) Eos % (Auto) 3.2 % (0-4.4) Baso % (Auto) 2.5 H % (0.2-1.2) Lymph # (Auto) 1.14 K/mm3 (0.9-3.2) Ness # (Auto) 0.4 K/mm3 (0.1-0.6) Eos # (Auto) 0.1 K/mm3 (0-0.3) Baso # (Auto) 0.1 K/mm3 (0.0-0.1) Abs Immat Gran (auto) 0.01 K/mm3 (0.00-0.031) Absolute Neuts (auto) 2.5 K/mm3 (1.3-6.7) Absolute Nucleated RBC 0.000 K/mm3 (0.0-0.012) Nucleated RBC % 0.0 % (0.0-0.2) Sodium 127 L mmol/L (137-145) Potassium 3.1 L mmol/L (3.4-5.0) Chloride 90 L mmol/L (98-107) Carbon Dioxide 22 mmol/L (22-30) Anion Gap 15 H mmol/L (4-12) BUN 3 L mg/dL (7-17) Creatinine 0.70 mg/dL (0.7-1.0) Estim Creat Clear Calc 51 ml/min Estimated GFR > 60
[2023-09-24] MEDS: BENZOCAINE (*SP) 60 ML SPRAY CAN (HURRICAINE) 1 SPRAY MUCOUS MEM (11:21)
[2023-09-24] MEDS: LORazepam INJ (*CRX) 2 MG/ML VIAL 0.5 MG IV PUSH (12:34)
[2023-09-24] MEDS: ASCORBIC ACID 500 MG TABLET 1000 MG PO (15:12)
[2023-09-24] MEDS: CHOLECALCIFEROL 1,000 UNITS TABLET 2000 UNITS PO (15:12)
[2023-09-24] MEDS: estradioL 1 MG TABLET PO (15:12)
[2023-09-24] MEDS: CALCIUM/VITAMIN D 500 MG/5 MCG (200 I.U.) TABLET 1000 MG PO (15:12)
[2023-09-24] MEDS: ASPIRIN 81 MG ENTERIC TABLET PO (15:13)
[2023-09-24] MEDS: GABAPENTIN 100 MG CAPSULE PO (15:13)
[2023-09-24] MEDS: CYANOCOBALAMIN 500 MCG TABLET PO (15:13)
--- NOTE | 2023-09-24 15:21 | PM.IMPN ---
Progress Note: A&P Assessment and Plan (1) Abnormal findings on imaging of biliary tract: Code(s): R93.2 - Abnormal findings on diagnostic imaging of liver and biliary tract Status: Acute (2) Transaminitis: Code(s): R74.01 - Elevation of levels of liver transaminase levels Status: Chronic (3) Hepatic steatosis: Code(s): K76.0 - Fatty (change of) liver, not elsewhere classified Status: Acute (4) Weight loss: Code(s): R63.4 - Abnormal weight loss Status: Acute (5) Gallbladder hydrops: Code(s): K82.1 - Hydrops of gallbladder Status: Acute (6) Esophagitis: Code(s): K20.90 - Esophagitis, unspecified without bleeding Status: Acute (7) Acute hyponatremia: Code(s): E87.1 - Hypo-osmolality and hyponatremia Status: Acute Plan Gallbladder hydrops GI Consulted Surgery consulted EGD show gastritis Possible HIDA scan N/V with weight loss has been going for over 3 months EGD negative just showed gastritis Dietitian consult protein shakes with each meal Zofran Megestrol GI and surgery consulted for further recommendation Folic acid added resumed patient home supplements Hyponatremia with hypo-osmolality secondary to dehydration poor oral intake IV fluids Neuro check Daily CMP Transaminitis CT abdomen shows fatty liver GI General surgery consulted EGD negative HIDA scan?? Hepatitis panel RITA,mitochondria Pending Code status: Full code per patient DVT prophylaxis: SCDs Stress ulcer prophylaxis: Protonix 40 daily PT/OT notes: PT/OT pending Disposition: Patient admitted for N/V and weight loss x 3 months no appetite and poor oral intake, GI did EGD today showed gastritis, Surgery following possible HIDA scan desk clerks supervisor consulted. Will order PT/OT will likely discharge back to home may need . Had recent back surgery Time Spent With Patient Time with patient: 15 - 25 minutes Subjective Date/time seen: 09/24/23 15:21 Interval history: Admission: Medical Record This is a 68-year-old female with past medical history significant for COPD/ emphysema, degenerative disc disease, fibromyalgia, gastroesophageal reflux disease, osteoarthritis, hyperlipidemia.? Patient is status post spinal fusion 2 weeks ago, patient has had nausea vomiting for 2 weeks has had weight loss of roughly 30 lb,? poor per orally intake, poor appetite. patient denies any fevers, rigors, chills, cough, sputum production, coffee-ground emesis, hematemesis, melena. 09/23: Patient seen following EGD which was normal except for gastritis. Patient reports she has had a lost of appetite and when she attempts to eat she get nauseous, report 30-40 pound unintentional weight loss. This as been going on for months and unknown etiology at this time. General surgery following for further recommendations but does not appear to be her gallbladder but does have worsening transaminitis, possible HIDA scan. No ABD pain, CP, SOB, dizziness, or vomiting. Has remained afebrile with normal WBC. Review of Systems Review of Systems: All systems reviewed & are unremarkable except as noted in HPI and below Exam Narrative: Physical Exam: GENERAL: Alert and oriented x 3. No acute distress. Malnourished EYES: EOMI. No scleral icterus. PERRLA. HEENT: Moist mucous membranes. LUNGS: Clear to auscultation bilaterally. No accessory muscle use. CARDIOVASCULAR: Regular rate and rhythm. No murmur. No JVD. S1-S2 ABDOMEN: Soft, mild tenderness and non-distended. No palpable masses. EXTREMITIES: No edema. Non-tender SKIN: No rashes or lesions. Skin warm, dry. NEUROLOGIC: No focal neurological deficits. CN II-XII grossly intact PSYCHIATRIC: Appropriate mood and affect. Good judgement and insight. No visual or auditory hallucinations. No suicidal or homicidal ideation. Objective Data Vital Signs Vital Signs: Vital Signs
[2023-09-24] MEDS: MAGNESIUM SULF 1 GM/D5W 100 ML 1 GM/100 ML BAG IVPB (17:13)
[2023-09-24] MEDS: MEGESTROL ACETATE (*CHEMO) 40 MG TABLET PO ×2 (17:24→20:29)
[2023-09-24] MEDS: ATORVASTATIN 20 MG TABLET PO (20:27)
[2023-09-24] MEDS: methocarbamoL 750 MG TABLET PO (20:28)
[2023-09-24] MEDS: LORazepam (*CRX) 0.5 MG TABLET PO (20:28)
[2023-09-25 05:46] VITALS: BP 140/74; PULSE 95; RESP 13; TEMP 36.7; O2SAT 97
[2023-09-25] MEDS: MORPHINE SULFATE (*CRX) 2 MG/ML INJ IV PUSH ×3 (06:00→21:30)
[2023-09-25] MEDS: ONDANSETRON INJ 4 MG/2 ML VIAL IV PUSH (06:00)
[2023-09-25 06:58] LABS: Hemoglobin 10.7 g/dL (12.0-15.0); Mean Corpuscular HGB Conc 33.4 g/dl (32-36); Mean Corpuscular Hemoglobin 33.5 pg (26-34); Mean Corpuscular Volume 100.3 fl (80-100); Mean Platelet Volume 9.8 fl (7.4-10.4); Platelet Count Result 256 k/mm3 (150-375); Red Blood Count 3.19 M/mm3 (4.2-5.4); Red Cell Distribution Width 15.1 % (11.5-14.5); White Blood Count 4.5 K/mm3 (4.5-10.0)
[2023-09-25 07:04] LABS: Alanine Aminotransferase 45 U/L (6-35); Alkaline Phosphatase 168 U/L (38-126); Anion Gap 3 mmol/L (4-12); Aspartate Amino Transferase 152 U/L (14-36); Bilirubin,Total 0.8 mg/dL (0.2-1.3); Blood Urea Nitrogen 3 mg/dL (7-17); Calcium 8.5 mg/dL (8.4-10.2); Carbon Dioxide 27 mmol/L (22-30); Chloride 96 mmol/L (98-107); Estimated CRCL calculation 51 ml/min; Estimated Glomerular Filt Rate > 60; Glucose 99 mg/dL (65-110); Potassium 3.1 mmol/L (3.4-5.0); Sodium 126 mmol/L (137-145)
[2023-09-25 07:06] LABS: Iron 46 ug/dL (37-170)
[2023-09-25 07:15] LABS: Percent Iron Saturation 39 % (20-50)
--- NOTE | 2023-09-25 08:14 | P.PNIM_ITS ---
Progress Note: A&P Assessment and Plan (1) Abnormal findings on imaging of biliary tract: Code(s): R93.2 - Abnormal findings on diagnostic imaging of liver and biliary tract Status: Acute (2) Transaminitis: Code(s): R74.01 - Elevation of levels of liver transaminase levels Status: Chronic (3) Hepatic steatosis: Code(s): K76.0 - Fatty (change of) liver, not elsewhere classified Status: Acute (4) Weight loss: Code(s): R63.4 - Abnormal weight loss Status: Acute (5) Gallbladder hydrops: Code(s): K82.1 - Hydrops of gallbladder Status: Acute (6) Esophagitis: Code(s): K20.90 - Esophagitis, unspecified without bleeding Status: Acute (7) Acute hyponatremia: Code(s): E87.1 - Hypo-osmolality and hyponatremia Status: Acute Plan Gallbladder hydrops * GI Consulted * Surgery consulted * EGD show gastritis * HIDA scan N/V with weight loss * has been going for over 3 months * EGD negative just showed gastritis * Dietitian consult * protein shakes with each meal * Zofran * Megestrol * GI and surgery consulted for further recommendation * Folic acid added * resumed patient home supplements * Cortisol WNL, TSH pending Hyponatremia with hypo-osmolality dehydration vs SIADH * Post-op 2 weeks spinal surgery * IV fluids challenge NA dropped to 126 * Fluid restriction * NA/ NA126/serum osmo * Neuro check * Daily CMP * Cortisol level pending/ACTH * 126 Na today Transaminitis * CT abdomen shows fatty liver * GI General surgery consulted * CT with Fatty Liver * Lipid panel pending * Low fat diet * EGD negative * HIDA scan * Hepatitis panel * hepatic markers * RITA,mitochondria Pending Code status: Full code per patient DVT prophylaxis: SCDs Stress ulcer prophylaxis: Protonix 40 daily PT/OT notes: PT/OT pending Disposition: Patient admitted for N/V and weight loss x 3 months no appetite and poor oral intake, GI did EGD today showed gastritis, Surgery with no intervention ordered HIDA scan and event planning intern consulted. Will order PT/OT will likely discharge back to home may need HH. Had recent back surgery. Currently unknown cause of Weight loss. Possible SIADH fluid restriction, post op 2 weeks spinal surgery. Time Spent With Patient Time with patient: 15 - 25 minutes Subjective Date/time seen: 09/25/23 08:14 Interval history: Admission: Medical Record This is a 68-year-old female with past medical history significant for COPD/ emphysema, degenerative disc disease, fibromyalgia, gastroesophageal reflux disease, osteoarthritis, hyperlipidemia.? Patient is status post spinal fusion 2 weeks ago, patient has had nausea vomiting for 2 weeks has had weight loss of roughly 30 lb,? poor per orally intake, poor appetite. patient denies any fevers, rigors, chills, cough, sputum production, coffee-ground emesis, hematemesis, melena. 09/23: Patient seen following EGD which was normal except for gastritis. Patient reports she has had a lost of appetite and when she attempts to eat she get nauseous, report 30-40 pound unintentional weight loss. This as been going on for months and unknown etiology at this time. General surgery following for further recommendations but does not appear to be her gallbladder but does have worsening transaminitis, possible HIDA scan. No ABD pain, CP, SOB, dizziness, or vomiting. Has remained afebrile with normal WBC. 09/24:
--- NOTE | 2023-09-25 08:14 | PM.IMPN ---
Progress Note: A&P Assessment and Plan (1) Abnormal findings on imaging of biliary tract: Code(s): R93.2 - Abnormal findings on diagnostic imaging of liver and biliary tract Status: Acute (2) Transaminitis: Code(s): R74.01 - Elevation of levels of liver transaminase levels Status: Chronic (3) Hepatic steatosis: Code(s): K76.0 - Fatty (change of) liver, not elsewhere classified Status: Acute (4) Weight loss: Code(s): R63.4 - Abnormal weight loss Status: Acute (5) Gallbladder hydrops: Code(s): K82.1 - Hydrops of gallbladder Status: Acute (6) Esophagitis: Code(s): K20.90 - Esophagitis, unspecified without bleeding Status: Acute (7) Acute hyponatremia: Code(s): E87.1 - Hypo-osmolality and hyponatremia Status: Acute Plan Gallbladder hydrops GI Consulted Surgery consulted EGD show gastritis HIDA scan N/V with weight loss has been going for over 3 months EGD negative just showed gastritis Dietitian consult protein shakes with each meal Zofran Megestrol GI and surgery consulted for further recommendation Folic acid added resumed patient home supplements Cortisol WNL, TSH pending Hyponatremia with hypo-osmolality dehydration vs SIADH Post-op 2 weeks spinal surgery IV fluids challenge NA dropped to 126 Fluid restriction NA/ NA126/serum osmo Neuro check Daily CMP Cortisol level pending/ACTH 126 Na today Trans[address] abdomen shows fatty liver GI General surgery consulted CT with Fatty Liver Lipid panel pending Low fat diet EGD negative HIDA scan Hepatitis panel hepatic markers RITA,mitochondria Pending Code status: Full code per patient DVT prophylaxis: SCDs Stress ulcer prophylaxis: Protonix 40 daily PT/OT notes: PT/OT pending Disposition: Patient admitted for N/V and weight loss x 3 months no appetite and poor oral intake, GI did EGD today showed gastritis, Surgery with no intervention ordered HIDA scan and gamma ray operator consulted. Will order PT/OT will likely discharge back to home may need HH. Had recent back surgery. Currently unknown cause of Weight loss. Possible SIADH fluid restriction, post op 2 weeks spinal surgery. Time Spent With Patient Time with patient: 15 - 25 minutes Subjective Date/time seen: 09/25/23 08:14 Interval history: Admission: Medical Record This is a 68-year-old female with past medical history significant for COPD/ emphysema, degenerative disc disease, fibromyalgia, gastroesophageal reflux disease, osteoarthritis, hyperlipidemia.? Patient is status post spinal fusion 2 weeks ago, patient has had nausea vomiting for 2 weeks has had weight loss of roughly 30 lb,? poor per orally intake, poor appetite. patient denies any fevers, rigors, chills, cough, sputum production, coffee-ground emesis, hematemesis, melena. 09/23: Patient seen following EGD which was normal except for gastritis. Patient reports she has had a lost of appetite and when she attempts to eat she get nauseous, report 30-40 pound unintentional weight loss. This as been going on for months and unknown etiology at this time. General surgery following for further recommendations but does not appear to be her gallbladder but does have worsening transaminitis, possible HIDA scan. No ABD pain, CP, SOB, dizziness, or vomiting. Has remained afebrile with normal WBC. 09/24: Patient was able to tolerate a scant portion of dinner last night but still reports being nauseous NA 126 likely secondary to dehydration from poor oral intake, LR started. Liver enzymes continue a upward trend will get a HIDA scan for further evaluation. Hepatic markers pending, Cortisol WNL, and TSH pending. Review of Systems Review of Systems: Nausea vomiting weight loss All systems reviewed & are unremarkable except as noted in HPI and below Exam Narrative: Physical Exam
[2023-09-25 09:10] LABS: Cortisol Baseline 9.08 ug/dL
[2023-09-25 09:22] LABS: Magnesium 1.7 mg/dL (1.6-2.3)
[2023-09-25] MEDS: POTASSIUM CHLORIDE INJ 40 MEQ in SODIUM CHLORIDE 0.9% IV 500 ML 130 MEQ IVPB (09:37)
[2023-09-25] MEDS: CALCIUM/VITAMIN D 500 MG/5 MCG (200 I.U.) TABLET 1000 MG PO (09:40)
[2023-09-25] MEDS: ASPIRIN 81 MG ENTERIC TABLET PO (09:40)
[2023-09-25] MEDS: PANTOPRAZOLE 40 MG TABLET PO (09:40)
[2023-09-25] MEDS: GABAPENTIN 100 MG CAPSULE PO ×3 (09:40→16:46)
[2023-09-25] MEDS: CYANOCOBALAMIN 500 MCG TABLET PO (09:40)
[2023-09-25] MEDS: FOLIC ACID 1 MG TABLET PO (09:40)
[2023-09-25] MEDS: CHOLECALCIFEROL 1,000 UNITS TABLET 2000 UNITS PO (09:40)
[2023-09-25] MEDS: ASCORBIC ACID 500 MG TABLET 1000 MG PO (09:40)
[2023-09-25] MEDS: estradioL 1 MG TABLET PO (09:40)
[2023-09-25] MEDS: MEGESTROL ACETATE (*CHEMO) 40 MG TABLET PO ×4 (09:40→21:30)
[2023-09-25] MEDS: LORazepam (*CRX) 0.5 MG TABLET PO ×2 (12:02→21:29)
--- NOTE | 2023-09-25 13:03 | PM.PNGS ---
Progress Note: A&P Assessment and Plan (1) Gallbladder hydrops: Code(s): K82.1 - Hydrops of gallbladder Status: Acute Assessment and Plan: chronic finding, exam benign, cont low fat diet, long d/w pt and she does not want cholecystectomy or further workup at this time, pt to f/u prn, no acute surgical issues, will s/o, call c ?s, issues Subjective Subjective Date/Time Seen: 09/25/23 13:03 Interval history: feels better, [place] low fat diet, no pain, mild nausea Review of Systems Review of Systems: All systems reviewed & are unremarkable except as noted in HPI and below Exam Const: General: cooperative, comfortable and no acute distress Resp: Auscultation: clear to auscultation bilaterally Cardio: Rate: regular rate Rhythm: regular rhythm GI: Inspection: normal to inspection and non-distended GI Palp: No abdominal tenderness and Yes Soft to palpation Objective Data Vital Signs Vital Signs: Vital Signs - 24 hr 09/24/23 14:00 09/24/23 21:16 09/25/23 05:46 Temperature 36.2 C L 36.7 C 36.7 C Pulse Rate 84 89 95 Respiratory Rate 18 13 13 Blood Pressure 125/65 116/61 140/74 Pulse Oximetry 100 100 97 Oxygen Delivery 09/25/23 08:00 Temperature Pulse Rate Respiratory Rate Blood Pressure Pulse Oximetry Oxygen Delivery Room Air Intake/Output Intake/Output: Intake & Output 09/22/23 09/23/23 09/24/23 09/25/23 23:59 23:59 23:59 23:59 Intake Total 1000 1540 960 Balance 1000 1540 960 Meds/Results Medications: Active Medications Generic Name Dose Route Start Last Admin Trade Name Freq PRN Reason Stop Dose Admin Albuterol 2 puff 09/24/23 08:33 Albuterol Sulfate (*Sp) Aerosol 1 Puff INHALATION Q4H PRN shortness of breath or wheezing Albuterol/Ipratropium 3 ml 09/24/23 08:33 Ipratropium 0.5 Mg/Albuterol Sulfate 2.5 Mg Ampul.Neb 3 Ml INHALATION QID PRN shortness of breath Ascorbic Acid 1,000 mg 09/24/23 13:40 09/25/23 09:40 Ascorbic Acid 500 Mg Tablet PO 1,000 mg DAILY NAHED Administration Aspirin 81 mg 09/24/23 13:40 09/25/23 09:40 Aspirin 81 Mg Enteric Tablet PO 81 mg QAM [facility] Administration Calcium Carbonate 1,000 mg 09/24/23 13:40 09/25/23 09:40 Calcium/Vitamin D 500 Mg/5 Mcg (200 I.U.) Tablet PO 1,000 mg DAILY [facility] Administration Cyanocobalamin 500 mcg 09/24/23 13:40 09/25/23 09:40 Cyanocobalamin 500 Mcg Tablet PO 10/25/23 13:39 500 mcg DAILY [facility] Administration Estradiol 1 mg 09/24/23 13:40 09/25/23 09:40 Estradiol 1 Mg Tablet PO 1 mg DAILY [facility] Administration Folic Acid 1 mg 09/25/23 09:00 09/25/23 09:40 Folic Acid 1 Mg Tablet PO 1 mg DAILY [facility] Administration Gabapentin 100 mg 09/24/23 13:40 09/25/23 12:02 Gabapentin 100 Mg Capsule PO 100 mg TID [facility] Administration Hyoscyamine 0.125 mg 09/24/23 13:19 Hyoscyamine Sulfate 0.125 Mg Tablet PO Q4H PRN Cramps Lorazepam 0.5 mg 09/24/23 13:19 09/25/23 12:02 Lorazepam (*Crx) 0.5 Mg Tablet PO 0.5 mg TID PRN Administration anxiety Magnesium Gluconate 250 mg 09/25/23 15:00 Magnesium 13.5 Mg Tablet (250 Mg Mag Gluconate) PO DAILY@1100 [facility] Megestrol Acetate 40 mg 09/24/23 17:00 09/25/23 12:02 Megestrol Acetate (*Chemo) 40 Mg Tablet PO 40 mg QID [facility] Administration Methocarbamol 750 mg 09/24/23 13:19 09/24/23 20:28 Methocarbamol 750 Mg Tablet PO 750 mg TID PRN Administration Muscle Spasm Morphine Sulfate 2 mg 09/23/23 22:48 09/25/23 06:00 Morphine Sulfate (*Crx) 2 Mg/Ml Inj IV PUSH 2 mg Q2H PRN Administration Pain Rated 7-10 Ondansetron HCl 4 mg 09/23/23 22:48 09/25/23 06:00 Ondansetron Inj 4 Mg/2 Ml Vial IV PUSH 4 mg Q4H PRN Administration Nausea Pantoprazole Sodium 40 mg 09/25/23 09:00 09/25/23 09:40 Pantoprazole 40 Mg Tablet PO 40 mg DAILY NAHED Administration Vitamin D 2,000 units 09/24/23 13:4
--- NOTE | 2023-09-25 16:12 | WPDGIPROGNO ---
Progress Note: A&P Assessment and Plan (1) Appetite loss: Code(s): R63.0 - Anorexia Status: Inactive Assessment and Plan: egd unremarkable encourage to eat, megace and protein shakes (2) Hepatic steatosis: Code(s): K76.0 - Fatty (change of) liver, not elsewhere classified Status: Acute Assessment and Plan: work up in progress she drinks some alcohol, also noted ast/alt>2- recommend to quit (3) Transaminitis: Code(s): R74.01 - Elevation of levels of liver transaminase levels Status: Chronic (4) Weight loss: Code(s): R63.4 - Abnormal weight loss Status: Acute (5) Gallbladder hydrops: Code(s): K82.1 - Hydrops of gallbladder Status: Acute Assessment and Plan: chronic finding, exam benign (6) Acute hyponatremia: Code(s): E87.1 - Hypo-osmolality and hyponatremia Status: Acute Subjective Date/time seen: 09/25/23 16:12 Interval history: egd negative, biopsies no celiac she has not been eating much for several weeks mostly because food does not taste good , she says that drinks socially on the weekends had spine surgery weeks ago and she is recovering. Review of Systems Review of Systems: All systems reviewed & are unremarkable except as noted in HPI and below Exam Const: General: cooperative, comfortable and no acute distress HENMT: Face/Nose/Sinus: Normal nares present Eyes: Sclera: sclerae normal Neck: Neck: supple Resp: Auscultation: clear to auscultation bilaterally Cardio: Rate: regular rate Rhythm: regular rhythm GI: Inspection: normal to inspection and non-distended GI Palp: No abdominal tenderness, Yes Soft to palpation and No Guarding due to palpation present (GI) Auscultation: normal bowel sounds Skin: General skin exam: normal color Neuro: Speech: normal speech Motor exam (neuro): 5/5 motor strength present throughout Extrem: General: normal to inspection Psych: Mental Status: mental status grossly normal Objective Data Vital Signs Vital Signs: Vital Signs - 24 hr 09/24/23 21:16 09/25/23 05:46 09/25/23 08:00 Temperature 98.1 F 98.0 F Pulse Rate 89 95 Respiratory Rate 13 13 Blood Pressure 116/61 140/74 Pulse Oximetry 100 97 Oxygen Delivery Room Air Intake/Output Intake/Output: Intake & Output 09/22/23 09/23/23 09/24/23 09/25/23 23:59 23:59 23:59 23:59 Intake Total 1000 1540 1420 Balance 1000 1540 1420 Meds/Results Medications: Active Medications Generic Name Dose Route Start Last Admin Trade Name Freq PRN Reason Stop Dose Admin Albuterol 2 puff 09/24/23 08:33 Albuterol Sulfate (*Sp) Aerosol 1 Puff INHALATION Q4H PRN shortness of breath or wheezing Albuterol/Ipratropium 3 ml 09/24/23 08:33 Ipratropium 0.5 Mg/Albuterol Sulfate 2.5 Mg Ampul.Neb 3 Ml INHALATION QID PRN shortness of breath Ascorbic Acid 1,000 mg 09/24/23 13:40 09/25/23 09:40 Ascorbic Acid 500 Mg Tablet PO 1,000 mg DAILY NAHED Administration Aspirin 81 mg 09/24/23 13:40 09/25/23 09:40 Aspirin 81 Mg Enteric Tablet PO 81 mg QAM NAHED Administration Calcium Carbonate 1,000 mg 09/24/23 13:40 09/25/23 09:40 Calcium/Vitamin D 500 Mg/5 Mcg (200 I.U.) Tablet PO 1,000 mg DAILY NAHED Administration Cyanocobalamin 500 mcg 09/24/23 13:40 09/25/23 09:40 Cyanocobalamin 500 Mcg Tablet PO 10/25/23 13:39 500 mcg DAILY NAHED Administration Estradiol 1 mg 09/24/23 13:40 09/25/23 09:40 Estradiol 1 Mg Tablet PO 1 mg DAILY NAHED Administration Folic Acid 1 mg 09/25/23 09:00 09/25/23 09:40 Folic Acid 1 Mg Tablet PO 1 mg DAILY NAHED Administration Gabapentin 100 mg 09/24/23 13:40 09/25/23 12:02 Gabapentin 100 Mg Capsule PO 100 mg TID NAHED Administration Hyoscyamine 0.125 mg 09/24/23 13:19 Hyoscyamine Sulfate 0.125 Mg Tablet PO Q4H PRN Cramps Lorazepam 0.5 mg 09/24/23 13:19 09/25/23 1
[2023-09-25 16:13] VITALS: BP 123/70; PULSE 84; RESP 18; TEMP 36.8; O2SAT 98
[2023-09-25] MEDS: MAGNESIUM 13.5 MG TABLET (250 MG MAG GLUCONATE) PO (16:46)
[2023-09-25 18:17] LABS: Sodium Urine Random 23 meq/L
[2023-09-25 20:00] VITALS: O2SAT 100
[2023-09-25 22:00] VITALS: BP 133/68; PULSE 86; RESP 13; TEMP 36.3; O2SAT 100
[2023-09-26 05:36] VITALS: BP 131/64; PULSE 80; RESP 14; TEMP 36.1; O2SAT 100
[2023-09-26 06:14] LABS: Hematocrit 30.1 % (37.0-47.0); Hemoglobin 10.3 g/dL (12.0-15.0); Mean Corpuscular HGB Conc 34.2 g/dl (32-36); Mean Corpuscular Hemoglobin 33.8 pg (26-34); Mean Corpuscular Volume 98.7 fl (80-100); Mean Platelet Volume 10.3 fl (7.4-10.4); Platelet Count Result 219 k/mm3 (150-375); Red Blood Count 3.05 M/mm3 (4.2-5.4)
[2023-09-26 06:39] LABS: Alanine Aminotransferase 40 U/L (6-35); Albumin Level 2.6 g/dL (3.5-5.1); Alkaline Phosphatase 145 U/L (38-126); Anion Gap 0 mmol/L (4-12); Aspartate Amino Transferase 115 U/L (14-36); Bilirubin,Total 0.6 mg/dL (0.2-1.3); Blood Urea Nitrogen 4 mg/dL (7-17); Calcium 8.5 mg/dL (8.4-10.2); Carbon Dioxide 27 mmol/L (22-30); Chloride 101 mmol/L (98-107); Cholesterol 148 mg/dL (0-200); Estimated CRCL calculation 59 ml/min; Estimated Glomerular Filt Rate > 60; Glucose 91 mg/dL (65-110); HDL Direct 103 mg/dL; Magnesium 1.5 mg/dL (1.6-2.3); Potassium 3.8 mmol/L (3.4-5.0); Sodium 128 mmol/L (137-145); Triglycerides 60 mg/dL (<150)
[2023-09-26 06:50] LABS: LDL Cholesterol Direct 37 mg/dL
--- NOTE | 2023-09-26 10:12 | PC.NURSE ---
pt returned to room from hida scan. pt settled and call light within reach.
[2023-09-26] MEDS: MEGESTROL ACETATE (*CHEMO) 40 MG TABLET PO ×2 (10:22→13:30)
[2023-09-26] MEDS: estradioL 1 MG TABLET PO (10:22)
[2023-09-26] MEDS: GABAPENTIN 100 MG CAPSULE PO ×2 (10:25→13:30)
[2023-09-26] MEDS: CYANOCOBALAMIN 500 MCG TABLET PO (10:25)
[2023-09-26] MEDS: CALCIUM/VITAMIN D 500 MG/5 MCG (200 I.U.) TABLET 1000 MG PO (10:25)
[2023-09-26] MEDS: CHOLECALCIFEROL 1,000 UNITS TABLET 2000 UNITS PO (10:25)
[2023-09-26] MEDS: PANTOPRAZOLE 40 MG TABLET PO (10:25)
[2023-09-26] MEDS: FOLIC ACID 1 MG TABLET PO (10:25)
[2023-09-26] MEDS: ASCORBIC ACID 500 MG TABLET 1000 MG PO (10:25)
[2023-09-26] MEDS: ASPIRIN 81 MG ENTERIC TABLET PO (10:26)
[2023-09-26] MEDS: MAGNESIUM 13.5 MG TABLET (250 MG MAG GLUCONATE) PO (10:26)
[2023-09-26] MEDS: HYDROcodone/acetaminophen (*CRX) 5-325 MG TABLET 1 TAB PO (10:47)
[2023-09-26] MEDS: LORazepam (*CRX) 0.5 MG TABLET PO (10:53)
[2023-09-26 11:08] LABS: Alpha Fetoprotein Tumor Marker 2.2 ng/mL
--- NOTE | 2023-09-26 12:40 | P.DS_ITS ---
DS: Admitting Diagnosis Discharge Date 09/26/2023 1215 Admitting Diagnosis gastritis DS: Discharge Diagnosis Discharge Diagnosis (1) Abnormal findings on imaging of biliary tract: Code(s): R93.2 - Abnormal findings on diagnostic imaging of liver and biliary tract Status: Acute (2) Transaminitis: Code(s): R74.01 - Elevation of levels of liver transaminase levels Status: Chronic (3) Hepatic steatosis: Code(s): K76.0 - Fatty (change of) liver, not elsewhere classified Status: Acute (4) Weight loss: Code(s): R63.4 - Abnormal weight loss Status: Acute (5) Gallbladder hydrops: Code(s): K82.1 - Hydrops of gallbladder Status: Acute (6) Esophagitis: Code(s): K20.90 - Esophagitis, unspecified without bleeding Status: Acute (7) Acute hyponatremia: Code(s): E87.1 - Hypo-osmolality and hyponatremia Status: Acute Plan Gallbladder hydrops * GI Consulted * Surgery consulted * HIDA scan shows noramal findings * EGD show gastritis N/V with weight loss * has been going for over 3 months * EGD negative just showed gastritis * Dietitian consult * protein shakes with each meal * Zofran * Megestrol * GI and surgery consulted for further recommendation * Folic acid added * resumed patient home supplements * Cortisol WNL, TSH 2.320 Hyponatremia with hypo-osmolality dehydration vs SIADH * Post-op 2 weeks spinal surgery * IV fluids challenge NA dropped to 126 * Fluid restriction * NA/ NA126/serum osmo * Neuro check * Daily CMP * Cortisol 9.08 and ATCH pending * 128 Na today * Baseline sodium is 126-132 * Within baseline * Most likely related to medications Transaminitis * CT abdomen shows fatty liver * GI General surgery consulted * CT with Fatty Liver * Lipid panel pending * Low fat diet * EGD negative * HIDA scan negative * Hepatitis panel negative * hepatic markers * RITA,mitochondria Pending * AST/ALT trending down currently 115/40 Code status: Full code per patient DVT prophylaxis: SCDs Stress ulcer prophylaxis: Protonix 40 daily PT/OT notes: PT/OT pending Disposition: Patient admitted for N/V and weight loss x 3 months no appetite and poor oral intake, GI did EGD today showed gastritis, Surgery with no intervention ordered HIDA scan and forestry contractor consulted. Will order PT/OT will likely discharge back to home may need HH. Had recent back surgery. Currently unknown cause of Weight loss. Possible SIADH fluid restriction, post op 2 weeks spinal surgery. DS: Summary Hospital Course Hospital Course: Patient is 68-year-old female with a past medical history of COPD emphysema, degenerative disc disease, fibromyalgia, GERD, oa, hyperlipidemia who presented to the ED with complaints nausea and vomiting along with weight loss with poor appetite over the last 2 weeks. AST ALT elevated upon arrival 152/47. Currently AST and ALT 150/40. EGD was performed and showed no acute findings. HIDA scan was also performed and showed normal gallbladder. General surgery and GI both consulted. Exams note gastritis. Hepatitis panel was performed showed no acute hepatitis. Whose BC was noted to be 1.5 replacement has been given. Sodium is low at 128 which appears to be chronic for this patient. Baseline appears to be 126-130. Currently patient is within her baseline. She denies any current chest pain, shortness a breath, nausea, vomiting, diarrhea constipation
--- NOTE | 2023-09-26 12:40 | PM.DS ---
DS: Admitting Diagnosis Discharge Date 09/26/2023 1215 Admitting Diagnosis gastritis DS: Discharge Diagnosis Discharge Diagnosis (1) Abnormal findings on imaging of biliary tract: Code(s): R93.2 - Abnormal findings on diagnostic imaging of liver and biliary tract Status: Acute (2) Transaminitis: Code(s): R74.01 - Elevation of levels of liver transaminase levels Status: Chronic (3) Hepatic steatosis: Code(s): K76.0 - Fatty (change of) liver, not elsewhere classified Status: Acute (4) Weight loss: Code(s): R63.4 - Abnormal weight loss Status: Acute (5) Gallbladder hydrops: Code(s): K82.1 - Hydrops of gallbladder Status: Acute (6) Esophagitis: Code(s): K20.90 - Esophagitis, unspecified without bleeding Status: Acute (7) Acute hyponatremia: Code(s): E87.1 - Hypo-osmolality and hyponatremia Status: Acute Plan Gallbladder hydrops GI Consulted Surgery consulted HIDA scan shows noramal findings EGD show gastritis N/V with weight loss has been going for over 3 months EGD negative just showed gastritis Dietitian consult protein shakes with each meal Zofran Megestrol GI and surgery consulted for further recommendation Folic acid added resumed patient home supplements Cortisol WNL, TSH 2.320 Hyponatremia with hypo-osmolality dehydration vs SIADH Post-op 2 weeks spinal surgery IV fluids challenge NA dropped to 126 Fluid restriction NA/ NA126/serum osmo Neuro check Daily CMP Cortisol 9.08 and ATCH pending 128 Na today Baseline sodium is 126-132 Within baseline Most likely related to medications Transaminitis CT abdomen shows fatty liver GI General surgery consulted CT with Fatty Liver Lipid panel pending Low fat diet EGD negative HIDA scan negative Hepatitis panel negative hepatic markers RITA,mitochondria Pending AST/ALT trending down currently 115/40 Code status: Full code per patient DVT prophylaxis: SCDs Stress ulcer prophylaxis: Protonix 40 daily PT/OT notes: PT/OT pending Disposition: Patient admitted for N/V and weight loss x 3 months no appetite and poor oral intake, GI did EGD today showed gastritis, Surgery with no intervention ordered HIDA scan and public works laborer consulted. Will order PT/OT will likely discharge back to home may need HH. Had recent back surgery. Currently unknown cause of Weight loss. Possible SIADH fluid restriction, post op 2 weeks spinal surgery. DS: Summary Hospital Course Hospital Course: Patient is 68-year-old female with a past medical history of COPD emphysema, degenerative disc disease, fibromyalgia, GERD, oa, hyperlipidemia who presented to the ED with complaints nausea and vomiting along with weight loss with poor appetite over the last 2 weeks. AST ALT elevated upon arrival 152/47. Currently AST and ALT 150/40. EGD was performed and showed no acute findings. HIDA scan was also performed and showed normal gallbladder. General surgery and GI both consulted. Exams note gastritis. Hepatitis panel was performed showed no acute hepatitis. Whose BC was noted to be 1.5 replacement has been given. Sodium is low at 128 which appears to be chronic for this patient. Baseline appears to be 126-130. Currently patient is within her baseline. She denies any current chest pain, shortness a breath, nausea, vomiting, diarrhea constipation. Patient did state that she was having some pain in her back which is chronic. Currently patient is stable for discharge for labs and vital signs. Patient will follow-up with her primary care provider in 1 week. Status at Discharge Functional status at discharge: independent ambulation Overall status at discharge: patient is progressing back to baseline Time Spent with Patient Time attestation: Total time spent providing and/or coordinating discharge services: 48 minutes Time spent: Mike
[2023-09-26] MEDS: MAGNESIUM SULF 2 GM/WATER 50ML 2 GM/50 ML BAG IVPB (13:30)
[2023-09-26 14:01] VITALS: BP 114/59; PULSE 84; RESP 17; TEMP 36.4; O2SAT 100
--- NOTE | 2023-09-26 15:16 | WPDGIPROGNO ---
Progress Note: A&P Assessment and Plan (1) Appetite loss: Code(s): R63.0 - Anorexia Status: Inactive Assessment and Plan: egd unremarkable she is eating more, megace and protein shakes (2) Hepatic steatosis: Code(s): K76.0 - Fatty (change of) liver, not elsewhere classified Status: Acute Assessment and Plan: work up in progress she drinks some alcohol, also noted ast/alt>2- recommend to quit she can follow-up in office (3) Transaminitis: Code(s): R74.01 - Elevation of levels of liver transaminase levels Status: Chronic (4) Weight loss: Code(s): R63.4 - Abnormal weight loss Status: Acute (5) Gallbladder hydrops: Code(s): K82.1 - Hydrops of gallbladder Status: Acute Assessment and Plan: chronic finding, exam benign hida scan normal Subjective Date/time seen: 09/26/23 15:16 Interval history: she is eating more and feeling better going home today hida scan was normal Review of Systems Review of Systems: All systems reviewed & are unremarkable except as noted in HPI and below Exam Const: General: cooperative, comfortable and no acute distress HENMT: Face/Nose/Sinus: Normal nares present Eyes: Sclera: sclerae normal Neck: Neck: supple Resp: Auscultation: clear to auscultation bilaterally Cardio: Rate: regular rate Rhythm: regular rhythm GI: Inspection: normal to inspection and non-distended GI Palp: No abdominal tenderness, Yes Soft to palpation and No Guarding due to palpation present (GI) Auscultation: normal bowel sounds Skin: General skin exam: normal color Neuro: Speech: normal speech Motor exam (neuro): 5/5 motor strength present throughout Extrem: General: normal to inspection Psych: Mental Status: mental status grossly normal Objective Data Vital Signs Vital Signs: Vital Signs - 24 hr 09/25/23 16:13 09/25/23 22:00 09/25/23 20:00 Temperature 98.3 F 97.3 F L Pulse Rate 84 86 Respiratory Rate 18 13 Blood Pressure 123/70 133/68 Pulse Oximetry 98 100 100 Oxygen Delivery Room Air 09/26/23 05:36 09/26/23 10:36 09/26/23 10:45 Temperature 96.9 F L Pulse Rate 80 Respiratory Rate 14 Blood Pressure 131/64 Pulse Oximetry 100 Oxygen Delivery Room Air Room Air 09/26/23 14:01 Temperature 97.5 F L Pulse Rate 84 Respiratory Rate 17 Blood Pressure 114/59 L Pulse Oximetry 100 Oxygen Delivery Intake/Output Intake/Output: Intake & Output 09/23/23 09/24/23 09/25/23 09/26/23 23:59 23:59 23:59 23:59 Intake Total 1000 1540 1520 740 Output Total 100 650 Balance 1000 1540 1420 90 Meds/Results Medications: Active Medications Generic Name Dose Route Start Last Admin Trade Name Freq PRN Reason Stop Dose Admin Hydrocodone Bitart/Acetaminophen 1 tab 09/26/23 10:28 09/26/23 10:47 Hydrocodone/Acetaminophen (*Crx) 5-325 Mg Tablet PO 1 tab Q6H PRN Administration Pain Rated 4-10 Albuterol 2 puff 09/24/23 08:33 Albuterol Sulfate (*Sp) Aerosol 1 Puff INHALATION Q4H PRN shortness of breath or wheezing Albuterol/Ipratropium 3 ml 09/24/23 08:33 Ipratropium 0.5 Mg/Albuterol Sulfate 2.5 Mg Ampul.Neb 3 Ml INHALATION QID PRN shortness of breath Ascorbic Acid 1,000 mg 09/24/23 13:40 09/26/23 10:25 Ascorbic Acid 500 Mg Tablet PO 1,000 mg DAILY NAHED Administration Aspirin 81 mg 09/24/23 13:40 09/26/23 10:26 Aspirin 81 Mg Enteric Tablet PO 81 mg QAM NAHED Administration Calcium Carbonate 1,000 mg 09/24/23 13:40 09/26/23 10:25 Calcium/Vitamin D 500 Mg/5 Mcg (200 I.U.) Tablet PO 1,000 mg DAILY NAHED Administration Cyanocobalamin 500 mcg 09/24/23 13:40 09/26/23 10:25 Cyanocobalamin 500 Mcg Tablet PO 10/25/23 13:39 500 mcg DAILY NAHED Administration Estradiol 1 mg 09/24/23 13:40 09/26/23 10:22 Estradiol 1 Mg Tablet PO 1 mg DAILY NAHED Administration Folic Acid 1 mg 09/25/23 09:00 04
[2023-09-27 11:48] LABS: Alpha-1-Antitrypsin, QN 121 mg/dL (83-199); Ceruloplasmin 24 mg/dL (18-53)
[2023-09-27 15:07] LABS: Osmolality, Urine 219 mOsm/kg (50-1200)
[2023-09-29 12:29] LABS: Actin Antibody (IgG) <20 U (<20)
[2023-09-29 13:14] LABS: Adrenocorticotropic Hormone 23 pg/mL (6-50)
[2023-10-02 13:42] LABS: ALT 34 U/L (6-29); Alpha-2-Macroglobulin 159 mg/dL (106-279); Apolipoprotein A1 228 mg/dL (101-198); Fibrosis Score 0.31; Fibrosis Stage F1-F2; GGT 407 U/L (3-65); Haptoglobin 76 mg/dL (43-212); Necroinflammat Act Grade A0-A1; Total Bilirubin 0.7 mg/dL (0.2-1.2)
[2023-10-02 15:24] LABS: Mitochondrial (M2) Ab (IgG) <20.0 U
== END 2023-09-26 15:30 | disposition home or self-care (01) | DRG 392 ==
LOC: ANHED 22:52 → ANH3MEDSUR 23:49
PROVIDERS: Internal Medicine Gastroenterology; Nurse Practitioner Family; Admitting Provider Internal Medicine; Emergency Provider Emergency Medicine; PCP Nurse Practitioner; Visit Provider Nurse Practitioner
PROC: 0DJ08ZZ Inspection of Upper Intestinal Tract, Via Natural or Artificial Opening Endoscopic (ICD-10-PCS; CPT 43235; principal; 2023-09-24 15:30)
DX: R11.2 Nausea with vomiting, unspecified (principal); K82.1 Hydrops of gallbladder; E87.1 Hypo-osmolality and hyponatremia; E44.0 Moderate protein-calorie malnutrition; E87.6 Hypokalemia; J44.9 Chronic obstructive pulmonary disease, unspecified; E55.9 Vitamin D deficiency, unspecified; E78.5 Hyperlipidemia, unspecified; K29.70 Gastritis, unspecified, without bleeding; K76.0 Fatty (change of) liver, not elsewhere classified; K21.00 Gastro-esophageal reflux disease with esophagitis, without bleeding; K58.0 Irritable bowel syndrome with diarrhea; R63.4 Abnormal weight loss; M79.7 Fibromyalgia; M51.36 Other intervertebral disc degeneration, lumbar region; M19.90 Unspecified osteoarthritis, unspecified site; F41.9 Anxiety disorder, unspecified; Z87.891 Personal history of nicotine dependence; Z79.82 Long term (current) use of aspirin; Z98.1 Arthrodesis status; Z68.21 Body mass index [BMI] 21.0-21.9, adult
CPT/HCPCS: 36415; 71046; 74177; 76705; 78227; 80053; 80061; 80074; 81003; 81596; 82024; 82103; 82105; 82390; 82533; 82728; 83520; 83540; 83550; 83690; 83735; 83935; 84300; 84443; 84484; 85025; 85027; 86038; 86364; 88305; 93005; 96361; 96374; 96375; 96376; 97161; 99285; A9270; A9537; C9113; G0378; J2060; J2270; J2405; J2550; J2704; J2805; J3475; J3480; J7030; J7040; J7120; Q9967

== ENCOUNTER 2023-10-14 15:16 | Outpatient (CLI) | payer MEDICARE, OTHER, SELFPAY ==
[2023-10-14 15:39] LABS: Basophils Absolute Auto 0.1 K/mm3 (0.0-0.1); Basophils Percent Auto 2.6 % (0.2-1.2); Eosinophils Absolute Auto 0.3 K/mm3 (0-0.3); Eosinophils Percent Auto 7.6 % (0-4.4); Hemoglobin 11.8 g/dL (12.0-15.0); Immature Granulocyte Absolute 0.02 K/mm3 (0.00-0.031); Immature Granulocyte Percent A 0.6 % (0-0.5); Lymphocytes Absolute Auto 1.03 K/mm3 (0.9-3.2); Lymphocytes Percent Auto 30.3 % (18.3-44.2); Mean Corpuscular HGB Conc 34.7 g/dl (32-36); Mean Corpuscular Hemoglobin 33.8 pg (26-34); Mean Corpuscular Volume 97.4 fl (80-100); Mean Platelet Volume 8.5 fl (7.4-10.4); Monocytes Absolute Auto 0.4 K/mm3 (0.1-0.6); Monocytes Percent Auto 12.6 % (2.6-8.5); Neutrophils Absolute Auto 1.6 K/mm3 (1.3-6.7); Neutrophils Percent Auto 46.3 % (45.5-73.1); Platelet Count Result 297 k/mm3 (150-375); Red Blood Count 3.49 M/mm3 (4.2-5.4); Red Cell Distribution Width 14.8 % (11.5-14.5); White Blood Count 3.4 K/mm3 (4.5-10.0)
[2023-10-14 16:54] LABS: Alanine Aminotransferase 29 U/L (6-35); Albumin Level 3.9 g/dL (3.5-5.1); Alkaline Phosphatase 186 U/L (38-126); Anion Gap 12 mmol/L (4-12); Aspartate Amino Transferase 77 U/L (14-36); Bilirubin,Total 0.7 mg/dL (0.2-1.3); Blood Urea Nitrogen 5 mg/dL (7-17); Calcium 9.1 mg/dL (8.4-10.2); Carbon Dioxide 21 mmol/L (22-30); Chloride 98 mmol/L (98-107); Estimated Glomerular Filt Rate > 60; Glucose 85 mg/dL (65-110); Potassium 4.6 mmol/L (3.4-5.0); Sodium 131 mmol/L (137-145)
[2023-10-14 16:59] LABS: Iron 119 ug/dL (37-170)
[2023-10-14 17:11] LABS: Percent Iron Saturation 90 % (20-50)
[2023-10-14 18:29] LABS: Folic Acid > 20.0 ng/mL (2.76->20); Vitamin B12 > 1000.0 pg/mL (239-931)
== END 2023-10-14 15:17 | disposition home or self-care (01) ==
LOC: ANHLAB 15:18
PROVIDERS: PCP Nurse Practitioner; Visit Provider Internal Medicine Hematology & Oncology
DX: D64.9 Anemia, unspecified (principal)
CPT/HCPCS: 36415; 80053; 82607; 82728; 82746; 83540; 83550; 85025

== ENCOUNTER 2023-10-17 11:58 | Outpatient (CLI) | payer MEDICARE, OTHER, SELFPAY | END 2023-10-17 11:59 | disposition home or self-care (01) | LOC: ANHLAB 12:01 | PROVIDERS: Visit Provider Internal Medicine Hematology & Oncology | DX: E83.19 Other disorders of iron metabolism (principal) | CPT/HCPCS: 36415; 81256 ==

== ENCOUNTER 2023-10-22 15:06 | Emergency (ER) | payer MEDICARE, OTHER, SELFPAY ==
--- NOTE | ~2023-10-22 | CT_ITS ---
EXAMINATION: CT abdomen pelvis w con DATE: 10/22/2023 19:04 INDICATION: Epigastric abdominal pain, nausea, vomiting and diarrhea. TECHNIQUE: Computed tomography (CT) of the abdomen and pelvis was performed with 100 mL Omnipaque-350 intravenous contrast. Automated exposure control and iterative reconstruction technique were employe d. The dose-length product was 168.55 mGy-cm. COMPARISON: None FINDINGS: Mild emphysema. Heart size is normal. Mild diffuse hepatic steatosis. Gallbladder, spleen, pancreas a nd bilateral adrenal glands are normal. Scattered small regions of cortical scarring at both kidneys likely sequela of prior infection or infarction. No dilated loops of bowel to suggest obstruction. No rmal appendix. Mild diffuse bladder wall thickening. The uterus is not identified and has likely been surgically resected. No free intraperitoneal gas or fluid. No pathologically enlarged abdominal or p elvic lymphadenopathy. No pathologically enlarged abdominal or pelvic lymphadenopathy. S-shaped scoli osis of the lumbar spine with severe spondylosis. Instrumented posterior spinal fusion beginning at T 10 with bilateral vertical rods and pedicle screws extending to S1 with additional bilateral iliac sc rews. There is also an L5-S1 anterior fusion with interbody bone graft cage. Chronic L3 compression f ractures with change of prior vertebroplasty. There are some extravasation of methylmethacrylate exte nding into a draining vertebral vein. IMPRESSION: 1. Mild diffuse bladder wall thickening which could be due to cystitis either acute or chronic or maxwell rogenic bladder. Correlate with urinalysis. 2. No other acute intra-abdominal/pelvic process. 3. Cortical scarring at both kidneys likely sequela prior infection or infarction. 4. Diffuse hepatic steatosis. Reviewed, dictated and finalized at location A. IMPRESSION: 1. Mild diffuse bladder wall thickening which could be due to cystitis either a cute or chronic or neurogenic bladder. Correlate with urinalysis. 2. No other acute intra-abdominal/pelvic process. 3. Cortical scarring at both kidneys likely sequela prior infection or infarcti on. 4. Diffuse hepatic steatosis.
[2023-10-22 15:06] VITALS: BP 110/51; PULSE 127; RESP 20; TEMP 36.6; O2SAT 100
--- NOTE | 2023-10-22 17:51 | ECG_ITS ---
SEE SCANNED COPY FOR CONFIRMED REPORT MTDD
--- NOTE | 2023-10-22 17:53 | ED.NAVMDI ---
HPI - Nausea/Vomiting/Diarrhea General Chief complaint: Nausea/Vomiting/Diarrhea <Katey Granda PA-C - Last Filed: 10/22/23 18:56> Stated complaint: severe dehydration x 3 days <Katey Granda PA-C - Last Filed: 10/22/23 18:56> Time Seen by Provider: 10/22/23 17:44 <MAY Srinivasan Last Filed: 10/22/23 18:56> Source: patient <MAY Pennington Last Filed: 10/22/23 21:29> Mode of arrival: ambulatory <MAY Pennington Last Filed: 10/22/23 21:29> Limitations: no limitations <MAY Pennington Last Filed: 10/22/23 21:29> History of Present Illness HPI Narrative: 68-year-old female with history of gallbladder hydrops, transaminitis, fibromyalgia, COPD, GERD, chronic hypokalemia, hyperlipidemia presents to emergency department for nausea, vomiting, inability to tolerate food or fluids for 3 days. States every time she tries to eat projectile vomits. States today she had 3 episodes of diarrhea that were yellow and green in color. She states she feels dehydrated. She is reporting pain or epigastrium. Denies chest pain or shortness of breath, cough or congestion, fever, dysuria or hematuria. She is admitted to our hospital for similar symptoms on 09/23/2023. Upon admission she had a HIDA scan which was normal, EGD which showed gastritis, hepatitis panel negative. Pt states she has been lightheaded multiple times today which she attributes to dehydration. Denies chest pain and dyspnea. She is discharged home with PCP follow-up on 09/26/2023. Denies hematemesis, coffee-ground emesis, melena or hematochezia. <MAY Srinivasan Last Filed: 10/22/23 18:56> Related Data Home medications: Home Medications Medication Instructions Recorded Confirmed estradiol 1 mg tablet 1 mg PO DAILY 11/25/19 09/24/23 ascorbic acid (vitamin C) 500 mg 1,000 mg PO DAILY 12/26/21 09/24/23 tablet calcium carb-vitamin D3 ER 600 mg 2 tablet PO DAILY 05/22/22 09/24/23 (1,500 mg)-500 unit tablet,ER 24 hr cholecalciferol (vitamin D3) 50 50 mcg PO DAILY 05/22/22 09/24/23 mcg (2,000 unit) tablet magnesium 250 mg tablet 250 mg PO DAILY 05/22/22 09/24/23 mecobalamin (vitamin B12) 500 mcg 500 mcg PO DAILY 08/06/22 09/24/23 chewable tablet <Katey Granda PA-C - Last Filed: 10/22/23 18:56> Allergies/Adverse reactions: Allergies Allergy/AdvReac Type Severity Reaction Status Date / Time Chlorhexidine AdvReac Severe Itching Uncoded 09/24/23 10:33 <Katey Granda PA-C - Last Filed: 10/22/23 18:56> Review of Systems Review of Systems: CONSTITUTIONAL: Denies fever, chills, or sweats. EYES: Denies visual changes, redness, or discharge. ENT: Denies rhinorrhea, congestion, sore throat, or otalgia. CARDIOVASCULAR: Denies chest pain, palpitations, or edema. RESPIRATORY: Denies cough or dyspnea. GASTROINTESTINAL: See HPI GENITOURINARY: Denies dysuria or hematuria. SKIN: Denies rash or itching. MUSCULOSKELETAL: Denies back pain, joint pain, or myalgia. NEUROLOGIC: Denies headache, numbness, or weakness. PSYCHIATRIC: Denies anxiety or depression. <Katey Granda PA-C - Last Filed: 10/22/23 18:56> [facility] Past Medical History Medical History: Medical History Anxiety COPD with emphysema Degenerative disc disease Fibromyalgia Gastroesophageal reflux disease Gastroesophageal reflux disease without esophagitis Hyperlipidemia Osteoarthritis Vitamin D deficiency, unspecified <Katey Granda PA-C - Last Filed: 10/22/23 18:56> Surgical History Surgical History: Surgical History History of cardiac catheterization (02/2021) Right coronary dominant circulation with no evidence of coronary disease. History of section History of colonoscopy with polypectomy History of fusion of thoracic spine July 2023 -anterior a
[2023-10-22] MEDS: ONDANSETRON INJ 4 MG/2 ML VIAL IV PUSH (17:59)
[2023-10-22] MEDS: SODIUM CHLORIDE 0.9% IV 1,000 ML 999 ML IV CONT ×2 (17:59→19:00)
[2023-10-22] MEDS: FAMOTIDINE 20 MG/2 ML VIAL IV PUSH (18:00)
[2023-10-22 18:11] LABS: Eosinophils Percent Auto 0.8 % (0-4.4); Hematocrit 35.4 % (37.0-47.0); Hemoglobin 12.4 g/dL (12.0-15.0); Immature Granulocyte Absolute 0.01 K/mm3 (0.00-0.031); Immature Granulocyte Percent A 0.3 % (0-0.5); Lymphocytes Percent Auto 18.3 % (18.3-44.2); Mean Corpuscular Hemoglobin 34.1 pg (26-34); Mean Corpuscular Volume 97.3 fl (80-100); Mean Platelet Volume 9.2 fl (7.4-10.4); Monocytes Absolute Auto 0.7 K/mm3 (0.1-0.6); Monocytes Percent Auto 17.8 % (2.6-8.5); Neutrophils Absolute Auto 2.4 K/mm3 (1.3-6.7); Neutrophils Percent Auto 61.8 % (45.5-73.1); Platelet Count Result 207 k/mm3 (150-375); Red Blood Count 3.64 M/mm3 (4.2-5.4); Red Cell Distribution Width 15.2 % (11.5-14.5); White Blood Count 3.8 K/mm3 (4.5-10.0)
[2023-10-22 18:21] LABS: Lactic Acid Reflex 3.5 mmol/L (0.7-2.0)
[2023-10-22 18:24] LABS: Alanine Aminotransferase 32 U/L (6-35); Albumin Level 3.9 g/dL (3.5-5.1); Alkaline Phosphatase 209 U/L (38-126); Anion Gap 8 mmol/L (4-12); Aspartate Amino Transferase 107 U/L (14-36); Blood Urea Nitrogen 5 mg/dL (7-17); Calcium 9.1 mg/dL (8.4-10.2); Carbon Dioxide 30 mmol/L (22-30); Chloride 87 mmol/L (98-107); Estimated CRCL calculation 45 ml/min; Estimated Glomerular Filt Rate > 60; Glucose 122 mg/dL (65-110); Lipase 204 U/L (23-300); Potassium 3.1 mmol/L (3.4-5.0); Sodium 125 mmol/L (137-145)
[2023-10-22 18:54] LABS: Influenza A QL RT-PCR Negative (Negative); Influenza B QL RT-PCR Negative (Negative); RSV RNA, RT-PCR Negative (Negative); SARS-CoV-2 RNA PCR Negative (Negative)
[2023-10-22] MEDS: POTASSIUM CHLORIDE 20 MEQ PACKET (FOR LIQUID) 40 MEQ PO (18:59)
[2023-10-22 19:03] LABS: Magnesium 1.5 mg/dL (1.6-2.3)
[2023-10-22 19:04] VITALS: BP 168/85; PULSE 97; RESP 13; O2SAT 100
[2023-10-22 19:16] LABS: Appearance Urine Clear (Clear); Bacteria Urine None Seen /hpf; Bilirubin Urine Negative (Negative); Blood Urine Negative (Negative); Color Urine Yellow (Yellow); Glucose Urine UA Negative (Negative); Ketones Urine Negative (Negative); Leukocyte Esterase Ur Negative LEU/UL (Negative); Nitrate Urine Negative (Negative); Non Pathogenic Casts 0-2; Protein Urine Trace mg/dL (Negative); RBC Urine 0-2 /hpf (0-2); Specific Grav Ur 1.015 (1.001-1.035); Squamous Epithelial Cell Urine Occasional /hpf (Few); Urobilinogen Urine 0.2 mg/dL (<2.0); WBC Urine 0-5 /hpf (0-3); pH Urine 8.5 (5.0-9.0)
[2023-10-22 19:17] LABS: Add Urine Microscopic? YES
[2023-10-22 19:31] VITALS: BP 145/78; PULSE 91; RESP 18; O2SAT 100
[2023-10-22] MEDS: MAGNESIUM SULF 2 GM/WATER 50ML 2 GM/50 ML BAG IVPB (19:52)
[2023-10-22 20:00] VITALS: BP 133/79; PULSE 89; RESP 15; O2SAT 98
[2023-10-22 20:30] VITALS: BP 132/76; PULSE 95; RESP 14; O2SAT 97
[2023-10-22 21:07] LABS: Reflex Lactic Acid Yes or No Add Lactic
== END 2023-10-22 22:04 | disposition home or self-care (01) ==
PROVIDERS: Emergency Medicine; Emergency Provider Physician Assistant; PCP Nurse Practitioner
DX: K52.9 Noninfective gastroenteritis and colitis, unspecified (principal); E87.1 Hypo-osmolality and hyponatremia; J44.9 Chronic obstructive pulmonary disease, unspecified; K21.9 Gastro-esophageal reflux disease without esophagitis; E78.5 Hyperlipidemia, unspecified; F41.9 Anxiety disorder, unspecified; E55.9 Vitamin D deficiency, unspecified; Z20.822 Contact with and (suspected) exposure to COVID-19
CPT/HCPCS: 36415; 74177; 80053; 81001; 83605; 83690; 83735; 85025; 87637; 93005; 96361; 96365; 96366; 96375; 99284; A9270; J2405; J3475; J7030; Q9967

== ENCOUNTER 2023-12-17 13:57 | Outpatient (CLI) | payer MEDICARE, OTHER, SELFPAY ==
--- NOTE | ~2023-12-17 | XR_ITS ---
3 VIEWS LUMBAR SPINE Ordering provider: Adalberto Figueredo MD History: . Radiculopathy, lumbosacral region . Comparison: January 11, 2023 FINDINGS: VERTEBRAL BODIES:Postoperative changes in the thoracolumbar spine. Vertebroplasty in L3. No visible fracture or subluxation. Mild levoscoliosis. DISK SPACES: Narrowing of all disc spaces. SOFT TISSUES: Normal. IMPRESSION: No acute osseous abnormality lumbar spine. Postoperative changes. Reviewed, dictated and finalized at location A.
--- NOTE | ~2023-12-17 | XR_ITS ---
XR hip BI wo pelvis Ordering provider: Adalberto Figueredo MD History: . Pain in unspecified hip . Comparison: September 25, 2022 FINDINGS: BONES: No acute fracture or dislocation. HIP JOINT SPACES: Normal. SACROILIAC JOINT SPACES/LUMBAR SPINE: The sacroiliac joint spaces are normal. Mild degenerative [place] es of the visualized lower lumbar spine. PUBIC SYMPHYSIS: Normal. SOFT TISSUES: Normal. Postoperative changes in the lower spine. IMPRESSION: No acute osseous abnormality of the bilateral hips and pelvis. Reviewed, dictated and finalized at location A.
== END 2023-12-17 13:58 ==
PROVIDERS: PCP Nurse Practitioner; Visit Provider Pain Medicine Interventional Pain Medicine
DX: M25.552 Pain in left hip (principal); M25.551 Pain in right hip; M54.17 Radiculopathy, lumbosacral region; Z98.890 Other specified postprocedural states
CPT/HCPCS: 72100; 73521

== ENCOUNTER 2024-01-10 20:45 | Emergency (ER) | payer MEDICARE, OTHER, SELFPAY ==
[2024-01-10 21:08] VITALS: BP 100/63; PULSE 130; RESP 19; TEMP 36.6; O2SAT 100
--- NOTE | 2024-01-10 21:13 | ECG_ITS ---
Test Date: 2024-01-10 21:23:19 Measurements Intervals [place] Rate: 107 P: 75 CA: 158 QRS: 56 QRSD: 78 T: 64 QT: 321 QTc: 430 Interpretive Statements SINUS TACHYCARDIA ABNORMAL RHYTHM ECG No previous ECG available for comparison Electronically Signed On 01-12-2024 13:30:55 CDT by Jaden Bailon M.D.
[2024-01-10 21:24] LABS: Basophils Absolute Auto 0.1 K/mm3 (0.0-0.1); Basophils Percent Auto 2.5 % (0.2-1.2); Eosinophils Absolute Auto 0.2 K/mm3 (0-0.3); Eosinophils Percent Auto 6.3 % (0-4.4); Hematocrit 33.7 % (37.0-47.0); Hemoglobin 11.8 g/dL (12.0-15.0); Immature Granulocyte Absolute 0.01 K/mm3 (0.00-0.031); Immature Granulocyte Percent A 0.3 % (0-0.5); Lymphocytes Absolute Auto 1.17 K/mm3 (0.9-3.2); Lymphocytes Percent Auto 36.8 % (18.3-44.2); Mean Corpuscular Hemoglobin 35.8 pg (26-34); Mean Corpuscular Volume 102.1 fl (80-100); Mean Platelet Volume 8.5 fl (7.4-10.4); Monocytes Absolute Auto 0.3 K/mm3 (0.1-0.6); Monocytes Percent Auto 9.7 % (2.6-8.5); Neutrophils Absolute Auto 1.4 K/mm3 (1.3-6.7); Neutrophils Percent Auto 44.4 % (45.5-73.1); Platelet Count Result 194 k/mm3 (150-375); Red Cell Distribution Width 14.1 % (11.5-14.5); White Blood Count 3.2 K/mm3 (4.5-10.0)
[2024-01-10 21:34] LABS: Alanine Aminotransferase 34 U/L (6-35); Albumin Level 4.2 g/dL (3.5-5.1); Alkaline Phosphatase 136 U/L (38-126); Anion Gap 19 mmol/L (4-12); Aspartate Amino Transferase 73 U/L (14-36); Bilirubin,Total 0.3 mg/dL (0.2-1.3); Blood Urea Nitrogen 12 mg/dL (7-17); Calcium 8.8 mg/dL (8.4-10.2); Carbon Dioxide 18 mmol/L (22-30); Chloride 100 mmol/L (98-107); Estimated CRCL calculation 37 ml/min; Estimated Glomerular Filt Rate 55; Glucose 85 mg/dL (65-110); Lipase 79 U/L (23-300); Potassium 4.2 mmol/L (3.4-5.0); Sodium 137 mmol/L (137-145)
[2024-01-10 21:37] VITALS: BP 131/73; PULSE 92; RESP 16; O2SAT 100
[2024-01-10 22:00] LABS: Influenza A QL RT-PCR Negative (Negative); Influenza B QL RT-PCR Negative (Negative); RSV RNA, RT-PCR Negative (Negative); SARS-CoV-2 RNA PCR Negative (Negative)
[2024-01-10] MEDS: LACTATED RINGERS 1,000 ML 999 ML IV CONT (22:02)
[2024-01-10] MEDS: ONDANSETRON INJ 4 MG/2 ML VIAL IV PUSH (22:02)
[2024-01-10] MEDS: LOPERAMIDE HCL 2 MG CAPSULE 4 MG PO (22:16)
[2024-01-10] MEDS: LORazepam (*CRX) 0.5 MG TABLET PO (22:16)
[2024-01-10] MEDS: BISMUTH SUBSALICYLATE 262 MG CHEWABLE TABLET 524 MG PO (22:17)
--- NOTE | 2024-01-10 22:34 | ED.NAVMDI ---
HPI - Nausea/Vomiting/Diarrhea General Chief complaint: Nausea/Vomiting/Diarrhea Stated complaint: dehydrated, n/v/d, abd pain Time Seen by Provider: 01/10/24 21:40 History of Present Illness HPI Narrative: patient presents with nausea, vomiting, diarrhea for the last week, has had similar symptoms in the past and following up with gastroenterology. Feels dehydrated. Some abdominal cramping all over. Related Data Home Medications Medication Instructions Recorded Confirmed estradiol 1 mg tablet 1 mg PO DAILY 11/25/19 12/17/23 ascorbic acid (vitamin C) 500 mg 1,000 mg PO DAILY 12/26/21 12/17/23 tablet calcium carb-vitamin D3 ER 600 mg 2 tablet PO DAILY 05/22/22 12/17/23 (1,500 mg)-500 unit tablet,ER 24 hr cholecalciferol (vitamin D3) 50 50 mcg PO DAILY 05/22/22 12/17/23 mcg (2,000 unit) tablet magnesium 250 mg tablet 250 mg PO DAILY 05/22/22 12/17/23 mecobalamin (vitamin B12) 500 mcg 500 mcg PO DAILY 08/06/22 12/17/23 chewable tablet hydrocodone 5 mg-acetaminophen 325 1 tablet PO Q8H PRN 12/26/23 12/26/23 mg tablet Allergies Allergy/AdvReac Type Severity Reaction Status Date / Time Chlorhexidine AdvReac Severe Itching Uncoded 12/26/23 10:59 Review of Systems Review of Systems: All systems reviewed & are unremarkable except as noted in HPI and below PMFSH Past Medical History Medical History Anxiety COPD with emphysema Degenerative disc disease Fibromyalgia Gastroesophageal reflux disease Gastroesophageal reflux disease without esophagitis Hyperlipidemia Osteoarthritis Vitamin D deficiency, unspecified Surgical History Surgical History History of cardiac catheterization (02/2021) Right coronary dominant circulation with no evidence of coronary disease. History of section History of colonoscopy with polypectomy History of fusion of thoracic spine July 2023 -anterior and posterior thoracolumbar reconstruction with fusion from T10 to the sacrum and ilium at [place] History of hysterectomy History of kyphoplasty History of repair of right rotator cuff History of tubal ligation Status post excision of Hernández's neuroma Family History Family History Father Family history of rheumatoid arthritis Cancer Sibling Pancreatic cancer Arthritis Family history of chronic obstructive pulmonary disease Gout Mother Cancer Emphysema of lung Daughter Asthma Social History Social History Social History: Surrogate decision maker: Israel Chung, spouse. Code status: Full code. Smoking packs per day: 1.5 Smoking cigarettes per day: 30.0 Years smoked: 25 Smoking pack-years: 37.50 Smoking status: Never smoker Tobacco type: cigarettes Smoking end date: 07/22/04 Alcohol intake: current Drinks per week: 4 Substance use: current Substance use type: painkillers and prescription drug Other substance usage details: CBD oil Do You Feel Safe in your Home?: Yes Lack of Transportation: No Lack of Food: Never True Current Housing: I Have Housing Concerned About Future Housing: No Difficulty Paying Gas/Electric Bills: No Difficulty Paying for Meds: No Currently Unemployed: No Education: Associate Degree Difficulty w/ Childcare or Family Care: No Additional living arrangements comments: The patient lives in [place] with her . 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 Gender identity (if verbalized by the patient): Female Spiritual care concerns: No Exam Narrative: EXAMINATION OF ORGAN SYSTEMS/BODY AREAS: Constitutional: Vital signs per nursing GENERAL:[No acute distress, non-toxic appearing.] HEAD: Normal with no signs of head trauma. EYES: EOMI, conjunctiva normal ENT: [place]
[2024-01-10 23:31] VITALS: BP 122/72; PULSE 100; RESP 16; O2SAT 100
== END 2024-01-10 23:27 | disposition home or self-care (01) ==
PROVIDERS: Emergency Provider Emergency Medicine; PCP Nurse Practitioner
DX: R11.2 Nausea with vomiting, unspecified (principal); R19.7 Diarrhea, unspecified; E78.5 Hyperlipidemia, unspecified; J43.9 Emphysema, unspecified; Z87.891 Personal history of nicotine dependence; Z20.822 Contact with and (suspected) exposure to COVID-19
CPT/HCPCS: 36415; 80053; 83690; 85025; 87637; 93005; 96361; 96374; 99284; A9270; J2405; J7120

== ENCOUNTER 2024-01-14 09:19 | Emergency (ER) | payer MEDICARE, OTHER, SELFPAY ==
--- NOTE | ~2024-01-14 | CT_ITS ---
EXAMINATION: CT abdomen pelvis w con DATE: 01/14/2024 10:39 INDICATION: Abdominal pain, nausea and vomiting TECHNIQUE: Computed tomography (CT) of the abdomen and pelvis was performed with 100 mL Omnipaque-350 intravenous contrast. Automated exposure control and iterative reconstruction technique were employe d. The dose-length product was 207.17 mGy-cm. COMPARISON: 10/22/2023 FINDINGS: Mild emphysema at the lung bases. Heart size is normal. No pericardial or pleural effusion. Evaluatio n of the abdomen is mildly limited by metallic streak artifact related to extensive instrumented post erior spinal fusion with bilateral vertical rods and pedicle screws extending from T10 through S1 wit h bilateral iliac screws. The fusion spans L3 compression fracture with prior vertebroplasty is some extravasation of methylmethacrylate into a draining vertebral vein. There is also an intraspinal fusi on with interbody fusion device at L5-S1. There is been prior posterior decompression at a few of the lumbar spine. Moderate lumbar levoscoliosis with severe spondylosis. Liver, gallbladder, spleen, pancreas and bilateral adrenal glands are normal. Scattered small region of cortical scarring at both kidneys likely sequela prior infection or infarction. Bowels including t he appendix are normal. The uterus is not identified and has likely been surgically resected. There i s mild wall thickening of the incompletely distended bladder. No free intraperitoneal gas or fluid. N o pathologically enlarged abdominal or pelvic lymphadenopathy. IMPRESSION: 1. Persistent mild diffuse bladder wall thickening due at least in part to incomplete distention but with differential including cystitis either acute or chronic. Correlate with urinalysis. 2. Scattered mild cortical scarring at both kidneys consistent with sequela prior infection or infarc tion. 3. Diffuse hepatic steatosis. 4. Mild emphysema. Reviewed, dictated and finalized at location A. IMPRESSION: 1. Persistent mild diffuse bladder wall thickening due at least in part to inco mplete distention but with differential including cystitis either acute or yard specialist art. Correlate with urinalysis. 2. Scattered mild cortical scarring at both kidneys consistent with sequela chen or infection or infarction. 3. Diffuse hepatic steatosis. 4. Mild emphysema.
[2024-01-14 09:24] VITALS: BP 150/84; PULSE 95; RESP 17; TEMP 36.9; O2SAT 100
--- NOTE | 2024-01-14 09:38 | ED.ABDPAIN ---
HPI - Abdominal Pain General Chief Complaint: Abdominal Pain Stated Complaint: abdominal pain Time Seen by Provider: 01/14/24 09:31 Source: patient Mode of arrival: ambulatory Limitations: no limitations History of Present Illness HPI narrative: Rosemarie is a 68-year-old female patient presenting to the ER today with complaints of generalized abdominal pain, nausea, and vomiting for the past 3-4 days. She reports she was seen ER on Saturday when her symptoms began was given a L of fluids and some Zofran and her symptoms resolved so she went home. She was told at that time to take Imodium as needed for diarrhea but was not sent home with any other medications. Today she returns is feeling dehydrated states she has had vomiting several times since Saturday however she has not vomited last 2 days. She has really been trying to push fluids and stay well hydrated. She is urinating a lot due to the increase of fluids. Denies any burning or urgency with urination. States she is having abdominal cramping as well rates the pain a 6/10. Has been having chills and hot flashes. Was tested for COVID when she was here on Saturday and that was negative. Denies any diarrhea or any blood in her stool. Last bowel movement was this morning and normal. Related Data Home Medications Medication Instructions Recorded Confirmed estradiol 1 mg tablet 1 mg PO DAILY 11/25/19 12/17/23 ascorbic acid (vitamin C) 500 mg 1,000 mg PO DAILY 12/26/21 12/17/23 tablet calcium carb-vitamin D3 ER 600 mg 2 tablet PO DAILY 05/22/22 12/17/23 (1,500 mg)-500 unit tablet,ER 24 hr cholecalciferol (vitamin D3) 50 50 mcg PO DAILY 05/22/22 12/17/23 mcg (2,000 unit) tablet magnesium 250 mg tablet 250 mg PO DAILY 05/22/22 12/17/23 mecobalamin (vitamin B12) 500 mcg 500 mcg PO DAILY 08/06/22 12/17/23 chewable tablet hydrocodone 5 mg-acetaminophen 325 1 tablet PO Q8H PRN 12/26/23 12/26/23 mg tablet Allergies Allergy/AdvReac Type Severity Reaction Status Date / Time Chlorhexidine AdvReac Severe Itching Uncoded 01/14/24 09:19 Review of Systems Review of Systems: Pertinent positives per HPI. Patient denies any fever, chills, rash, headache, visual changes, dizziness, cough, runny nose, sore throat, shortness of breath, chest pain, palpitations, diarrhea, constipation,or any urinary issues. [facility] Past Medical History Medical History Anxiety COPD with emphysema Degenerative disc disease Fibromyalgia Gastroesophageal reflux disease Gastroesophageal reflux disease without esophagitis Hyperlipidemia Osteoarthritis Vitamin D deficiency, unspecified Surgical History Surgical History History of cardiac catheterization (02/2021) Right coronary dominant circulation with no evidence of coronary disease. History of section History of colonoscopy with polypectomy History of fusion of thoracic spine July 2023 -anterior and posterior thoracolumbar reconstruction with fusion from T10 to the sacrum and ilium at [place] History of hysterectomy History of kyphoplasty History of repair of right rotator cuff History of tubal ligation Status post excision of Hernández's neuroma Family History Family History Father Family history of rheumatoid arthritis Cancer Sibling Pancreatic cancer Arthritis Family history of chronic obstructive pulmonary disease Gout Mother Cancer Emphysema of lung Daughter Asthma Social History Social History Social History: Surrogate decision maker: Israel Chung, spouse. Code status: Full code. Smoking packs per day: 1.5 Smoking cigarettes per day: 30.0 Years smoked: 25 Smoking pack-years: 37.50 Smoking status: Never smoker Tobacco type: cigarettes Smoking end date: 07/22/04
[2024-01-14 10:02] LABS: Basophils Percent Auto 0.9 % (0.2-1.2); Eosinophils Absolute Auto 0.1 K/mm3 (0-0.3); Eosinophils Percent Auto 3.3 % (0-4.4); Hematocrit 33.9 % (37.0-47.0); Hemoglobin 11.9 g/dL (12.0-15.0); Immature Granulocyte Absolute 0.02 K/mm3 (0.00-0.031); Immature Granulocyte Percent A 0.5 % (0-0.5); Lymphocytes Absolute Auto 0.82 K/mm3 (0.9-3.2); Lymphocytes Percent Auto 19.4 % (18.3-44.2); Mean Corpuscular HGB Conc 35.1 g/dl (32-36); Mean Corpuscular Hemoglobin 35.8 pg (26-34); Mean Corpuscular Volume 102.1 fl (80-100); Mean Platelet Volume 9.3 fl (7.4-10.4); Monocytes Absolute Auto 0.5 K/mm3 (0.1-0.6); Monocytes Percent Auto 12.1 % (2.6-8.5); Neutrophils Absolute Auto 2.7 K/mm3 (1.3-6.7); Neutrophils Percent Auto 63.8 % (45.5-73.1); Nucleated Red Blood Cells Perc 0.5 % (0.0-0.2); Platelet Count Result 182 k/mm3 (150-375); Red Blood Count 3.32 M/mm3 (4.2-5.4); Red Cell Distribution Width 13.5 % (11.5-14.5); White Blood Count 4.2 K/mm3 (4.5-10.0)
[2024-01-14] MEDS: SODIUM CHLORIDE 0.9% IV 1,000 ML 999 ML IV CONT ×2 (10:11→11:25)
[2024-01-14] MEDS: ONDANSETRON INJ 4 MG/2 ML VIAL IV PUSH (10:12)
[2024-01-14 10:13] LABS: Alanine Aminotransferase 34 U/L (6-35); Albumin Level 4.2 g/dL (3.5-5.1); Alkaline Phosphatase 146 U/L (38-126); Anion Gap 14 mmol/L (4-12); Aspartate Amino Transferase 123 U/L (14-36); Bilirubin,Total 1.2 mg/dL (0.2-1.3); Blood Urea Nitrogen 4 mg/dL (7-17); Carbon Dioxide 28 mmol/L (22-30); Chloride 88 mmol/L (98-107); Estimated CRCL calculation 41 ml/min; Estimated Glomerular Filt Rate > 60; Glucose 116 mg/dL (65-110); Lipase 54 U/L (23-300); Potassium 3.6 mmol/L (3.4-5.0); Sodium 130 mmol/L (137-145)
[2024-01-14 10:18] VITALS: BP 161/80; PULSE 95; RESP 16; TEMP 36.6; O2SAT 94
--- NOTE | 2024-01-14 10:18 | PC.NURSE ---
Pt reports a history of anxiety, takes Lorazepam prn. None taken today
[2024-01-14 10:35] LABS: Add Urine Microscopic? YES; Appearance Urine Cloudy (Clear); Bacteria Urine None Seen /hpf; Bilirubin Urine Negative (Negative); Blood Urine Negative (Negative); Color Urine Dark Yellow (Yellow); Glucose Urine UA Negative (Negative); Ketones Urine Trace mg/dL (Negative); Leukocyte Esterase Ur Trace LEU/UL (Negative); Need Manual Microscopic Reviewed; Nitrate Urine Negative (Negative); Non Pathogenic Casts >20; Protein Urine 1+ mg/dL (Negative); RBC Urine 0-2 /hpf (0-2); Specific Grav Ur 1.033 (1.001-1.035); Squamous Epithelial Cell Urine Few /hpf (Few); WBC Urine 0-5 /hpf (0-3); pH Urine 6.5 (5.0-9.0)
[2024-01-14 10:51] VITALS: BP 166/80; PULSE 95; RESP 12; O2SAT 99
== END 2024-01-14 17:15 | disposition home or self-care (01) ==
PROVIDERS: Emergency Medicine; Emergency Provider Nurse Practitioner Family; PCP Nurse Practitioner
DX: N30.00 Acute cystitis without hematuria (principal); K29.00 Acute gastritis without bleeding; E86.0 Dehydration; E87.1 Hypo-osmolality and hyponatremia; J44.9 Chronic obstructive pulmonary disease, unspecified; J43.9 Emphysema, unspecified; E55.9 Vitamin D deficiency, unspecified; E78.5 Hyperlipidemia, unspecified; K21.9 Gastro-esophageal reflux disease without esophagitis; M79.7 Fibromyalgia; M19.90 Unspecified osteoarthritis, unspecified site; Z98.1 Arthrodesis status; Z86.010 Personal history of colon polyps; Z87.891 Personal history of nicotine dependence; Z90.710 Acquired absence of both cervix and uterus; K76.0 Fatty (change of) liver, not elsewhere classified; Z79.82 Long term (current) use of aspirin; Z79.899 Other long term (current) drug therapy
CPT/HCPCS: 36415; 74177; 80053; 81001; 83690; 85025; 96361; 96374; 99284; J2405; J7030; Q9967

== ENCOUNTER 2024-02-07 11:09 | Outpatient (CLI) | payer MEDICARE, OTHER, SELFPAY ==
--- NOTE | ~2024-02-07 | XR_ITS ---
EXAMINATION: XR thoracic spine 3V DATE: 02/07/2024 11:27 INDICATION: Mid back pain. TECHNIQUE: 3 views of thoracic spine on 4 radiographs were obtained. COMPARISON: None. FINDINGS: There is 13 degrees dextroscoliosis of thoracic spine. There is kyphosis of thoracic spine. There are changes of posterior fusion procedure from T10 to the sacrum and iliac bones. There is sev ere cervical and lumbar spondylosis. In the thoracic spine, vertebral body heights are normal. There are endplate osteophytes at most levels in thoracic spine. There is moderately decreased disc height at T9-T10. IMPRESSION: 1. Moderate thoracic spondylosis. 2. Posterior fusion procedure from thoracic spine to the sacrum and iliac bones. 3. Thoracic dextroscoliosis and kyphosis. Reviewed, dictated and finalized at location A. IMPRESSION: 1. Moderate thoracic spondylosis. 2. Posterior fusion procedure from thoracic spine to the sacrum and iliac bones . 3. Thoracic dextroscoliosis and kyphosis.
== END 2024-02-07 11:10 | disposition home or self-care (01) ==
PROVIDERS: PCP Nurse Practitioner; Visit Provider Pain Medicine Interventional Pain Medicine
DX: M43.04 Spondylolysis, thoracic region (principal); M41.84 Other forms of scoliosis, thoracic region; Z98.1 Arthrodesis status
CPT/HCPCS: 72072

== ENCOUNTER 2024-03-05 13:32 | Outpatient (CLI) | payer MEDICARE, OTHER, SELFPAY ==
--- NOTE | ~2024-03-05 | XR_ITS ---
XR shoulder RT min 2V Ordering provider: Adalberto Figueredo MD History: . Pain in unspecified shoulder . Comparison: None. FINDINGS: BONES: No acute fracture or dislocation. JOINT SPACES: Right shoulder arthroplasty with no dislocation. SOFT TISSUES: Normal. IMPRESSION: No acute osseous abnormality right shoulder. Right shoulder arthroplasty. Reviewed, dictated and finalized at location A.
== END 2024-03-05 13:33 | disposition home or self-care (01) ==
LOC: MICIMG 13:34
PROVIDERS: PCP Nurse Practitioner; Visit Provider Pain Medicine Interventional Pain Medicine
DX: M25.511 Pain in right shoulder (principal)
CPT/HCPCS: 73030

== ENCOUNTER 2024-04-28 14:25 | Outpatient (CLI) | payer MEDICARE, OTHER, SELFPAY ==
--- NOTE | ~2024-04-28 | MM_ITS ---
EXAMINATION: MM screening carmen BI w daljit HISTORY: Screening TECHNIQUE: Craniocaudal and mediolateral oblique 3-D tomosynthesis images were obtained and synthetic 2-D images were generated. CAD analysis was submitted and interpreted. COMPARISON: Comparison to multiple prior studies sequentially, with oldest reviewed study dated 07/24. BREAST PARENCHYMAL COMPOSITION: Not dense: There are scattered areas of fibroglandular density. FINDINGS: There is no evidence of suspicious mass, calcification, or architectural distortion to sugg est malignancy in either breast. There has been no suspicious interval change. IMPRESSION: 1. No mammographic evidence of malignancy. 2. Recommend routine screening mammography in one year. BI-RADS Category 1: Negative Reviewed, dictated and finalized at location B. 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
== END 2024-04-28 14:26 | disposition home or self-care (01) ==
LOC: MICIMG 14:26
PROVIDERS: PCP Nurse Practitioner; Visit Provider Nurse Practitioner
DX: Z12.31 Encounter for screening mammogram for malignant neoplasm of breast (principal)
CPT/HCPCS: 77063; 77067

== ENCOUNTER 2024-12-28 09:19 | Outpatient (CLI) | payer MEDICARE, OTHER, SELFPAY ==
--- OUTSIDE RECORDS SUMMARY | 2024-12-28 09:41 | XMS_ITS | Clinical Summary ---
Author Organization [facility] [employer] Address [address] [place] [address] Care Team Providers Care Cottage Parent Name Role Phone Carlos Alcala DO Primary Care Provider [phone] Source Comments [facility] [employer],non-owned Affiliates and Associated Physician Practices is amultiple site organization consisting of ambulatory clinics and hospital sitesin [place], [place], [place] and [place]. This disclosure is being madepursuant to the Care Everywhere program and may not contain all information available regarding this patient. Last updated 18.[facility] [employer] Allergies No known active allergies Medications * Be aware that medications may not be up to date on this document. Alwaysverify current medications with the patient. estradiol (ESTRACE) 1 MG tablet Take 1 mg by mouth once daily 02/01/2020 Active pantoprazole EC (PROTONIX) 40 MG tablet Take 40 mg by mouth once daily Active diclofenac sodium EC (VOLTAREN) 75 MG tablet 04/23/2019 Active HYDROcodone-acet aminophen (NORCO) 5-325 MG tablet Take 1 tablet by mouth 10/02/2019 Active metaxalone (SKELAXIN) 800 MG tablet TK 1 T PO TID PRF MUSCLE PAIN 01/19/2020 Active LORazepam (ATIVAN) 0.5 MG tablet TK 1 T PO TID PRA 12/08/2019 Active hyoscyamine 0.125 MG tablet TK 2 TS Q 4 H PRN 02/20/2020 Active albuterol (ACCUNEB) 0.63 MG/3ML nebulizer solution Inhale 0.63 mg by mouth Active Vitamin D3 (CHOLECALCIFEROL ) 50 MCG (2000 UT) capsule Take 2,000 Units by mouth once daily 05/20/2019 Active ANORO ELLIPTA 62.5-25 MCG/INH inhaler INL 1 PUFF PO D 02/11/2020 Active magnesium gluconate (MAGTRATE) 500 MG tablet Take 250 mg by mouth once daily Active Active Problems No known active problems Social History Tobacco Use Types Packs/Day Years Used Date Smoking Tobacco: Former Smokeless Tobacco: Never Comments:quit in 2005 Alcohol Use Standard Drinks/Week Comments Yes 0 (1 standard drink = 0.6 oz pur e alcohol) occasionally Comments Unknown Sex and Gender Information Value Date Recorded Sex Assigned at Not on file Legal Sex Female 12:51 PM CDT Gender Identity Not on file Sexual Orientation Not on file Last Filed Vital Signs Vital Sign Reading Time Taken Comments Blood Pressure 134/67 04/08/2020 11:45 AM SENIOR ECOLOGIST Pulse 65 04/08/2020 11:45 AM SENIOR ECOLOGIST Temperature 37.2 C (98.9 F) 04/08/2020 8:22 AM SENIOR ECOLOGIST Respiratory Rate 17 04/08/2020 11:45 AM SENIOR ECOLOGIST Oxygen Saturation 97% 04/08/2020 11:45 AM SENIOR ECOLOGIST Inhaled Oxygen Concentration - - Weight 59 kg (130 lb) 04/08/2020 7:50 AM SENIOR ECOLOGIST Height 166.4 cm (5' 5.5) 04/08/2020 7:50 AM SENIOR ECOLOGIST Body Mass Index 21.3 04/08/2020 7:50 AM SENIOR ECOLOGIST Plan of Treatment Health Maintenance Due Date Last Done Comments COLOGUARD (AGES 45-75) - COLON CA SCREENING 1957 COLON MONITORING 1957 COLONOSCOPY - COLON CA SCREENING 1957 CT COLONOGRAPHY - COLON CA SCREENING 1957 Colorectal Cancer Screening 1957 FIT - COLON CA SCREENING 1957 FLEX SIG - COLON CA SCREENING 1957 LIPID TESTING 1957 MAMMOGRAM 1957 MEDICARE AWV 12 MONTHS 1957 HEPATITIS C SCREENING 07/03/1975 DTAP/TDAP/TD VACCINES (1 - Tdap) 1976 PNEUMOCOCCAL VACCINE 50+ (1 of 1 - PCV) 2007 ZOSTER VACCINE (1 of 2) 2007 COVID-19 VACCINE (2023- season) 2024 DEPRESSION SCREENING 06/03/2024 INFLUENZA VACCINE (#1) 2025 , 05/30/2018, 04/08/2017, Additional history exists Respiratory Syncytial Virus (RSV) Vaccine Pt: or over 60 yrs (1 - 1-dose 75+ series) 2032 BONE DENSITY TESTING Completed 03/27/2023 HEPATITIS B VACCINE Aged Out No longe r eligible based on patient's age to complete this topic HIB VACCINE Aged Out No longer eligi ble based on patient's age to complete this topic HPV VACCINE Aged Out No longer eligi ble based on patient's age to complete this topic MENINGOCOCCAL (Group B) VACCINE SHARED DECISION-MAKING Aged Out No longer eligible based on patient's age to complete this topic MENINGOCOCCAL GROUPS A/C/Y/W VACCINE Aged Out No longer eligible based on patient's age to complete this topic Insurance MEDICARE MEDICARE [employer] [employer] MED[employer] [employer] Care Teams Cottage Parent Relationship Specialty Start Date End Date Carlos Alcala DO [address] [place] [address] [phone] PCP - General 01/10/22
--- OUTSIDE RECORDS SUMMARY | 2024-12-28 09:41 | XMS_ITS | Clinical Summary ---
Author Organization [facility] [place] [facility] Address [address] [place] [id number] Care Team Providers Care Gis Database Administrator Name Role Phone Den Erickson MD Unavailable [phone] Alexandrea Sunshine Unavailable [phone] Carlos Alcala DO Primary Care Provider [phone] Allergies Active Allergy Reactions Criticality Noted Date Comments Chlorhexidine Itching Low 07/11/2023 Medications hyoscyamine (LEVSIN) 0.125 mg tabletIndicatio ns:Irritable Bowel Syndrome Take 1 tablet (0.125 mg total) by mouth every 6 (six) hours as needed 2 9 Active atorvastatin (LIPITOR) 20 mg tabletIndicatio ns:hyperlipidem ia Take 1 tablet (20 mg total) by mouth nightly 1 Active estradioL (ESTRACE) 1 mg tablet Take 1 tablet (1 mg total) by mouth daily 1 Active methocarbamoL (ROBAXIN) 750 mg tablet Take 1 tablet (750 mg total) by mouth 3 (three) times a day as needed for muscle spasms for muscle spasms 3 Active cyanocobalamin, vitamin B-12, 500 mcg tablet,disinteg rating Place 1 tablet under the tongue as needed Active cholecalciferol (VITAMIN D-3) 2000 unit tablet Take 1 tablet (2,000 Units total) by mouth daily Active vitamin E 400 unit capsule Take 1 capsule (400 Units total) by mouth 2 (two) times a week Active sodium chloride 1,000 mg tablet TAKE 1 TABLET BY MOUTH DAILY ONLY IF YOU TAKE FUROSEMIDE 3 Active furosemide (LASIX) 20 mg tablet Take 1 tablet (20 mg total) by mouth as needed 4 Active potassium chloride ER 20 mEq CR tablet Take 1 tablet (20 mEq total) by mouth director of field service before breakfast 3 Active LORazepam (ATIVAN) 0.5 mg tabletIndicatio ns:anxiety Take 1 tablet (0.5 mg total) by mouth every 6 (six) hours as needed for anxiety 30 tablet 4 Active acetaminophen 500 mg capsule Take 2 capsules (1,000 mg total) by mouth every 6 (six) hours 4 Active gabapentin (NEURONTIN) 100 mg capsuleIndicati ons:Pain Take 1 capsule (100 mg total) by mouth every 8 (eight) hours 4 Active cephalexin (KEFLEX) 500 mg capsule TAKE 1 CAPSULE BY MOUTH EVERY 8 HOURS FOR 7 DAYS 4 Active HYDROcodone-hailey taminophen (NORCO) 5-325 mg per tablet TAKE 1 TABLET THREE TIMES DAILY NEEDED 4 Active ondansetron (ZOFRAN) 4 mg tablet TAKE 1 TABLET BY MOUTH EVERY 6 HOURS NEEDED FOR NAUSEA OR VOMITING 4 Active predniSONE (DELTASONE) 10 mg tablet 4 Active triamcinolone (KENALOG) 0.1 % cream APPLY THREE TIMES DAILY NEEDED FOR RASH [address] (PROTONIX) 20 mg EC tablet Take 1 tablet (20 mg total) by mouth every morning 5 Active albuterol HFA (PROVENTIL HFA,VENTOLIN HFA,PROAIR HFA) 90 mcg/actuation inhaler INHALE 2 PUFFS BY MOUTH EVERY 4 HOURS NEEDED FOR SHORTNESS OF BREATH OR WHEEZING 5 Active simethicone (MYLICON) 80 mg chewable tablet Take 1 tablet (80 mg total) by mouth every 6 (six) hours as needed Active ipratropium-alb uteroL (DUO-NEB) 0.5-2.5 mg/3 mL nebulizer solution USE 3 ML VIA NEBULIZER EVERY 6 HOURS NEEDED FOR SHORTNESS OF BREATH OR WHEEZING 5 Active aspirin 81 mg enteric coated tablet Take 1 tablet (81 mg total) by mouth daily Active clobetasoL (TEMOVATE) 0.05 % cream 4 Active MAGNESIUM GLUCONATE ORAL Take 200 mg by mouth daily Active Active Problems Problem Noted Date Diagnosed Date Lactic acidosis 02/27/2024 Gastroesophageal reflux disease without esophagi tis 08/28/2023 Primary hypertension 08/28/2023 Dry eye 08/21/2023 Dry mouth 08/21/2023 Morning stiffness of joints 08/21/2023 Myalgia 08/21/2023 Polyarthralgia 08/21/2023 Chronic obstructive pulmonary disease, unspecifi ed 07/17/2023 Anxiety disorder, unspecified 07/15/2023 Hemiplegia, unspecified affecting left nondomina nt side 07/15/2023 Hypo-osmolality and hyponatremia 07/15/2023 Sinus tachycardia 07/12/2023 Assessment & Plan (07/14/2023 11:54 AM CUFF TURNER): - EKG and tele showing new onset of sinus tachycardia following extensive staged spinal surgeries 07/09 and 07/11. Suspect multifactorial reactive tachycardia from post-op stress, Hgb drop, and pain. CT PE neg for PE or infection. Early post-op fever also likely contributing to HR - no WBC elevation, no clear localizing evidence of infection, UA neg. Hgb now stable at 8.9 after 1u pRBC 07/12. TSH normal. HR improved 100- 110s. Afebrile off antibiotics. Hgb stable. Recommendations: - Ensure adequate pain control - Pt reports takes ativan 0.5 mg about 1-3x/day, HR did improve after administration of home ativan - would ensure at least receiving this minimum once a day to ensure any contribution from possible benzo withdrawal - Repeat EKG if any tele alert for change in rhythm S/P spinal fusion 07/09/2023 Moderate protein-calorie malnutrition 07/09/2023 Lumbar radiculopathy 06/13/2023 Kyphosis of thoracolumbar region 06/13/2023 Scoliosis of lumbar spine 06/13/2023 Fibromyalgia 04/08/2023 Low back pain at multiple sites 04/08/2023 Mass of buccal mucosa 03/06/2023 Assessment & Plan (03/15/2023 9:55 AM CDT): Continue mouth rinse and spits with mouthwash after meals and before bedtime for at least 3 more days Follow up as needed Assessment & Plan (03/06/2023 1:45 PM CDT): Excision of Right buccal mucosal mass with repair Risks and complications: Anesthesia, bleeding, infection, benign versus malignant pathology, recurrence of lesion, injury to arteries, nerves and veins, scarring and need for further treatment S/P reverse total shoulder arthroplasty, right 0 01/23/2023 Arrhythmia 01/21/2023 Low sodium levels 01/21/2023 Rotator cuff tear arthropathy of right shoulder 11/28/2022 Acute kidney failure 02/07/2022 Polyarthritis 02/07/2022 Chronic anemia 02/02/2022 Reactive thrombocytosis 02/02/2022 History of repair of right rotator cuff 10/14/19 20 Discharge from [facility] 04/14/2014 Resolved Problems Problem Noted Date Diagnosed Date Resolved Date Traumatic rotator cuff tear, right, initial encounter 06/08/2019 10/14/2019 Overview (06/08/2019): Added automatically from request for surgery [id number] Arthritis of right acromioclavicular joint 06/08/2019 10/14/2019 Overview (06/08/2019): Added automatically from request for surgery [id number] 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 06/08/2019 10/14/2019 Overview (06/08/2019): Added automatically from request for surgery [id number] Impingement syndrome of right shoulder 06/08/2019 10/14/2019 Overview (06/08/2019): Added automatically from request for surgery [id number] Immunizations Immunization Administration Dates Next Due Influenza, Quadrivalent, Dagmar l Culture-based MDCK, Antibiotic Free, Intramuscular 05/30/2018 Influenza, Quadrivalent, Dagmar l Culture-based MDCK, Preservative Free, Antibiotic Free, Intramuscular 06/05/2019 Influenza, Trivalent, High D ose, Split, Preservative Free, Intramuscular 04/17/2013 Influenza, Trivalent, IM (MDV) 05/04/2014,2012 Influenza, Trivalent, Preservative Free, Intramu scular 04/08/2017,07/15/2016 Pneumococcal Conjugate PCV 13 07/15/2016 Surgical History Surgery Date Site/Laterality Comments HYSTERECTOMY total NEUROMA SURGERY SECTION ROTATOR CUFF REPAIR Right KYPHOPLASTY 06/03/2019 - 06/02/2020 CARDIAC CATHETERIZATION TOTAL SHOULDER ARTHROPLASTY Right CENTRAL LINE PLACEMENT > 5 YEARS 07/08/2023 N/A SPINE SURGERY 07/09/2023 Medical History Medical History Date Comments Gastric reflux Osteoarthritis GERD (gastroesophageal reflux disease) Irritable bowel syndrome Back pain COPD (chronic obstructive pulmonary disease) (HC C) mild Anemia Anxiety Hyponatremia Fibromyalgia History of acute tubular necrosis Family History Medical History Relation Name Comments Arthritis Brother Asthma Daughter Rheum arthritis Father Breast cancer Mother Adenocarcinoma of breast - (Added by TW Conv) Cancer Mother Emphysema Mother COPD Sister Pancreatic cancer Sister Relation Name Status Comments Brother Alive Daughter Father Alive Mother Alive Other Sister Social History Tobacco Use Types Packs/Day Years Used Date Smoking Tobacco: Former Cigarettes 2 29.7 0 06/25/1975 - 03/17/2005 Passive Smoke Exposure: Past Smokeless Tobacco: Never Tobacco Cessation:Counseling Given: Not Answered Alcohol Use Standard Drinks/Week Comments Yes 0 [...] on file Legal Sex Female 12:44 AM CUFF TURNER Gender Identity Not on file Sexual Orientation Not on file Obstetrics History Last Filed Vital Signs Vital Sign Reading Time Taken Comments Blood Pressure 162/74 06/16/2024 1:28 PM CUFF TURNER Pulse 96 06/16/2024 1:28 PM CUFF TURNER Temperature 36.6 C (97.8 F) 07/19/2023 11:29 AM CUFF TURNER Respiratory Rate 15 07/20/2023 8:30 AM CUFF TURNER Oxygen Saturation 98% 07/20/2023 8:30 AM CUFF TURNER Inhaled Oxygen Concentration - - Weight 62.1 kg (137 lb) 06/16/2024 1:28 PM CUFF TURNER Height 160 cm (5' 3) 06/16/2024 1:28 PM CUFF TURNER Body Mass Index 24.27 06/16/2024 1:28 PM CUFF TURNER Plan of Treatment Health Maintenance Due Date Last Done Comments Breast Cancer Screening-Mammogram 1955 Colon Cancer Screening-Colonoscopy 1955 Hepatitis C Screening 1955 DTaP/Tdap/Td Vaccine (1 - Tdap) 1968 Hepatitis B Screening 1975 Zoster Vaccine (1 of 2) 2007 Pneumococcal vaccine 65+ (2 of 2 - PPSV23) 09/09/2016 07/15/2016 Well Visit 65+ 2022 Depression Screening 11/29/2023 11/28/2022 Fall Risk Assessment 07/15/2024 07/15/2023, 11/29/19 23 Influenza Vaccine (#1) 2025 , 06/05/2019, 05/30/2018, Additional history exists Osteoporosis Screening-Bone Density Scan 03/27/2025 03/27/2023, 03/27/2023 Medical Devices Implanted Type Area Vice President Prec[employer] Market [employer] Device Identifier Shelf Expiration Date Model / Serial / Lot Arthrex Inc Ar-3633 Arthrex Fibertak Tape 3 Load Rotator Cuff [place] Suture Sterile Latex Free - [id number] Implanted:Qty: 1 on 06/11/2019 by Den Erickson MD at [facility] Right: Shoulder Arthrex Inc 03/02/2024 AR-3633 / / [id number] Arthrex Inc Ar-2324bcc Swivelock C 4.75mm 19.1mm Closed Eyelet Vent [place] Suture - [id number] Implanted:Qty: 1 on 06/11/2019 by Den Erickson MD at [facility] Right: Shoulder Arthrex Inc 04/02/2021 AR-2324BCC / / [id number] Arthrex Inc Arthrex Univers Revers Shoulder 7 Stem Humeral Sterile Ar-9501-07p - [id number] Implanted:Qty: 1 on 01/24/2023 by Den Erickson MD at [facility] Right: Shoulder Arthrex Inc [id number] 03/02/2027 AR-9501-07 P / / [id number] Arthrex Inc Baseplate 24mm 10 Deg Full Augment Oblique Vx-8592-6065 - [id number] Implanted:Qty: 1 on 01/24/2023 by Den Erickson MD at [facility] Right: Shoulder Arthrex Inc [id number] 10/01/2027 AR-9580-24 10 / / [id number] Arthrex Inc Component Glenoid Modular Post Reverse 20mm Ar-9582-20 - [id number] Implanted:Qty: 1 on 01/24/2023 by Den Erickson MD at [facility] Right: Shoulder Arthrex Inc [id number] 08/01/2027 AR-9582-20 / / [id number] Arthrex Inc 36mm 24 Baseplate Taper Sphere Glenoid Bb-1375-6407 - [id number] Implanted:Qty: 1 on 01/24/2023 by Den Erickson MD at [facility] Right: Shoulder Arthrex Inc [id number] 04/02/2026 AR-9564-24 36 / / [id number] Arthrex Inc 5.5mm 24mm Lock Modular Glenoid Screw Bone Ar-9563-24 - [id number] Implanted:Qty: 1 on 01/24/2023 by Den Erickson MD at [facility] Right: Shoulder Arthrex Inc [id number] 10/01/2027 AR-9563-24 / / [id number] Arthrex Inc 5.5mm 36mm Lock Peripheral Screw Bone Sterile Ar-9563-36 - [id number] Implanted:Qty: 1 on 01/24/2023 by Den Erickson MD at [facility] Right: Shoulder Arthrex Inc [id number] 08/01/2027 AR-9563-36 / / [id number] Arthrex Inc Insert Humeral Combo Reverse Poly Univers Revers +3x33mm Vc-8418-4941-3 - [id number] Implanted:Qty: 1 on 01/24/2023 by Den Erickson MD at [facility] Right: Shoulder Arthrex Inc [id number] 01/31/2027 AR-9503-33 36-3 / / [id number] Arthrex Inc Implant Suture Cup Humeral Reverse Right Univers Revers +2x33mm Titanium [id number] - [id number] Implanted:Qty: 1 on 01/24/2023 by Den Erickson MD at [facility] Right: Shoulder Arthrex Inc [id number] 04/02/2027 AR-9502F-3 3RCPC / / [id number] Allosource Crushed Fresh Frozen Cancellous 1-4mm Graft 15ml Bone 02740999 - [id number] Implanted:Qty: 1 on 07/09/2023 by Mulugeta Navarrete MD at [facility] Spine Lumbar Allosource 11/21/2027 [id number] / / [id number] Medtronic Inc Kit Graft Bone Sponge Xlg Infuse 8cc Granules 2472307 - [id number] Implanted:Qty: 1 on 07/09/2023 by Mulugeta Navarrete MD at [facility] N/A: Spine Lumbar Medtronic Inc [id number] 12/01/2024 4342747 / / [id number] Viola Spine Graft Bone Filler Gel Bio Dbm 10cc 3079668 - [id number] Implanted:Qty: 1 on 07/09/2023 by Mulugeta Navarrete MD at [facility] N/A: Spine Lumbar [place] Spine [id number] 01/03/2026 0756549 / / [id number] Spineart [facility] Inc Screw Spn Pedicle Sld 5x25mm Sjt-Ls 50 25-S - [id number] Implanted:Qty: 1 on 07/09/2023 by Mulugeta Navarrete MD at [facility] N/A: Spine Lumbar SPINEART [employer] INC [id number] 12/07/2029 SJT-LS 50 25-S / / [id number] Spineart [employer] Inc Cage Secured Lumbar Anterior Small Lordosis 15deg 10 Mm Sca-Ls 15 10-S - [id number] Implanted:Qty: 1 on 07/09/2023 by Mulugeta Navarrete MD at [facility] N/A: Spine Lumbar SPINEART [employer] INC 01/07/2027 SCA-LS 15 10-S / / [id number] Spineart [place] Inc Screw Spn Pedicle Sld 5x25mm Sjt-Ls 50 25-S - [id number] Implanted:Qty: 1 on 07/09/2023 by Mulugeta Navarrete MD at [facility] N/A: Spine Lumbar SPINEART [employer] INC [id number] 02/28/2031 SJT-LS 50 25-S / / [id number] Medtronic Inc Kit Graft Bone Sponge Xlg Infuse 8cc Granules 1122933 - [id number] Implanted:Qty: 2 on 07/11/2023 by Mulugeta Navarrete MD at [facility] N/A: Spine Thoracic Medtronic Inc 12/01/2024 [id number] / / [place] Spine Graft Bone Filler Gel Bio Dbm 10 8362751 - [id number] Implanted:Qty: 1 on 07/11/2023 by Mulugeta Navarrete MD at [facility] N/A: Spine Thoracic [place] Spine [id number] 11/19/2025 5021391 / / [id number] [place] Spine Graft Bone Filler Gel Bio Dbm 10cc 0271380 - [id number] Implanted:Qty: 1 on 07/11/2023 by Mulugeta Navarrete MD at [facility] N/A: Spine Thoracic [place] Spine [id number] 01/03/2026 0609231 / / [id number] [place] Spine Graft Bone Filler Gel Bio Dbm 10 1378828 - [id number] Implanted:Qty: 1 on 07/11/2023 by Mulugeta Navarrete MD at [facility] N/A: Spine Thoracic Viola Spine [id number] 01/03/2026 4588595 / / [id number] Viola Spine Graft Bone Filler Gel Bio Dbm 10 1266603 - [id number] Implanted:Qty: 1 on 07/11/2023 by Mulugeta Navarrete MD at [facility] N/A: Spine Thoracic [place] Spine [id number] 01/03/2026 2378369 / / [id number] Viola Spine Graft Bone Filler Gel Bio Dbm [facility] 6792223 - [id number] Implanted:Qty: 1 on 07/11/2023 by Mulugeta Navarrete MD at [facility] N/A: Spine Thoracic Viola Spine [id number] 01/06/2026 9108071 / / [id number] [place] Spine Graft Bone Filler Gel Bio Dbm 10 4248912 - [id number] Implanted:Qty: 1 on 07/11/2023 by Mulugeta Navarrete MD at [facility] N/A: Spine Thoracic Viola Spine [id number] 01/03/2026 8243341 / / [id number] Allosource Crushed Chip Frozen Graft 30ml Bone Cancellous 79763926 - [id number] Implanted:Qty: 1 on 07/11/2023 by Mulugeta Navarrete MD at [facility] N/A: Spine Thoracic Allosource 08/19/2027 99328251 / / [id number] Allosource Crushed Chip Frozen Graft 90ml Bone Cancellous 93285604 - [id number] Implanted:Qty: 1 on 07/11/2023 by Mulugeta Navarrete MD at [facility] N/A: Spine Thoracic Allosource 10/21/2027 14146109 / / [id number] [place] Spine Phelps Spine Screw Set Haney 2901-28615 - [id number] Implanted:Qty: 22 on 07/11/2023 by Mulugeta Navarrete MD at [facility] [place] Spine 2901-1 0001 / / [place] Spine Phelps Od5.5 Mm L45 Mm Polyaxial Spine Screw Bone 291171950 - [id number] Implanted:Qty: 5 on 07/11/2023 by Mulugeta Navarrete MD at [facility] Viola Spine 2911-0 5545 / / Viola Spine Phelps 6.5mm 30mm Polyaxial Spine Screw Bone Nonsterile 2911-86354 - [id number] Implanted:Qty: 2 on 07/11/2023 by Mulugeta Navarrete MD at [facility] Viola Spine 2911-0 6530 / / Viola Spine Phelps Od6.5 Mm L40 Mm Polyaxial Spine Screw Bone 291122512 - [id number] Implanted:Qty: 2 on 07/11/2023 by Mulugeta Navarrete MD at [facility] Viola Spine 2911-0 6540 / / Viola Spine Phelps Od6.5 Mm L45 Mm Polyaxial Spine Screw Bone 2911-72505 - [id number] Implanted:Qty: 6 on 07/11/2023 by Mulugeta Navarrete MD at [facility] [place] Spine 2911-0 6545 / / [place] Spine Phelps Od6.5 Mm L60 Mm Polyaxial Spine Screw Bone Green 291195499 - [id number] Implanted:Qty: 1 on 07/11/2023 by Mulugeta Navarrete MD at [facility] Viola Spine 2911-0 6560 / / [place] Spine Screw 8.5 Mm Polyaxial - 70 Mm 2911-40715 - [id number] Implanted:Qty: 1 on 07/11/2023 by Mulugeta Navarrete MD at [facility] [place] Spine 2911-0 8570 / / [place] Spine Od8.5 Mm L80 Mm Polyaxial Spine Screw Bone Green 2911-48945 - [id number] Implanted:Qty: 1 on 07/11/2023 by Mulugeta Navarrete MD at [facility] Viola Spine 2911-0 8580 / / Viola Spine Connector Spinal Lateral Thoracolumbar Open Adjustable Offset Phelps 25mm 2901-15142 - [id number] Implanted:Qty: 1 on 07/11/2023 by Mulugeta Navarrete MD at [facility] [place] Spine 2901-7 5525 / / [place] Spine Phelps 35mm Lateral Offset Spine Connector Oswald Nonsterile Latex 2901-62245 - [id number] Implanted:Qty: 3 on 07/11/2023 by Mulugeta Navarrete MD at [facility] Viola Spine 2901-7 5535 / / Viola Spine L500 Mm Hexagonal End Oswald Spinal Titanium Alloy 101-N21820 - [id number] Implanted:Qty: 2 on 07/11/2023 by Mulugeta Navarrete MD at [facility] [place] Spine 101-A5 5500 / / Procedures Procedure Name Priority Date/Time Associated Diagnosis Comments DEXA AXIAL SKELETON BONE DENSITY 1 OR MORE SITES Schedule Routine, Read Routine (OP Routine) 03/27/2023 2:06 PM CDT Osteoporosis, unspecified osteoporosis type, unspecified pathological fracture presence from Last 3 Months or Most Recently Relevant to Health Maintenance Results * DEXA Axial Skeleton Bone Density Multi Site (03/27/2023 2:06 PM CDT) Anatomical Region Laterality Modality Body N/A Radiographic Paige ging Narrative 03/27/2023 3:17 PM CDT Patient Name: Rosemarie Chung Date of : 1955 Date of scan: 03/27/2023 Bone mineral density was performed on a uTaP Discovery Densitometer. Based on machine cross-calibration and precision studies the least significant changes of this densitometer is 0.024 g/cm2 at the spine, 0.020 g/cm2 at the total proximal femur, and 0.014g/cm2 at the forearm. HISTORY: This is a 67 y.o. postmenopausal female. She reports that she quit smoking about 18 years ago. Her smoking use included cigarettes. She has never used smokeless tobacco. Currently on treatment with calcium, vitamin D, and hormone replacement therapy and current complaint of back pain. INDICATIONS: Menopause status and history of prior vertebral fracture. FINDINGS: BONE MINERAL DENSITY OF THE PROXIMAL FEMUR Bone Mineral Density (BMD) of the left hip total was found to be 1.100 gm/cm2. This corresponds to a T-score standard deviations from the mean of young adults of 1.3. Femoral neck is 0.910 gm/cm2 with a T-score (standard deviations from the mean of young adults) of 0.6. There is no previous study available for comparison. BONE MINERAL DENSITY OF THE FOREARM Bone Mineral density (BMD) of the left proximal 1/3 of the radius measures 0.836 gm/cm2. This corresponds to a T-score (standard deviations from the mean of young adults) of 2.4. There is no previous study available for comparison. A forearm bone density study was performed instead of a spine study because of the presence of vertebroplasty material, severe degenerative disease and severe scoliosis. SUMMARY: Bone mineral density is near the young adult normal mean with no increased risk for fracture. ADDITIONAL COMMENTS: Postmenopausal Women and Men Over 50: Diagnostic criteria: Osteoporosis: BMD at or below -2.5 T-score; Osteopenia (low bone mass): BMD between -1.0 and -2.5 T-score. If the patient has a history of a fragility fracture, a fracture that occurred with trauma equivalent to a fall from a standing position or less, then the diagnosis is osteoporosis regardless of bone density. The history and data sections of the bone mineral density scan were prepared by Kate Hatch (R)(CBDT) who is accredited by the International Society of Clinical Densitometry. The overall patient assessment and scan interpretation were performed by Wilfredo Reza M.D. who is certified by the International Society of Clinical Densitometry. [id number] Mulugeta Navarrete MD Micha DXA PROCEDURES F inal Result from Last 3 Months or Most Recently Relevant to Health Maintenance Insurance MEDICARE [employer] [place]IC[place] [address] [address] [address] [facility] Advance Directives For more information, please contact: [phone] Documents on File Type Date Recorded Patient Help Desk Agent Expl anation ADVANCE DIRECTIVE 07/10/2023 3:54 PM POWER OF SENIOR COMPLIANCE OFFICER-MEDICAL ADVANCE DIRECTIVE 07/10/2023 3:30 PM POWER OF SENIOR COMPLIANCE OFFICER-MEDICAL * Full Code (Latest Code Status on File) Date Activated Date Inactivated Comments 07/09/2023 2:12 PM 07/15/2023 8:53 PM * Full Code Date Activated Date Inactivated Comments 07/08/2023 12:52 PM 07/09/2023 5:13 AM * Full Code Date Activated Date Inactivated Comments 01/24/2023 2:35 PM 01/25/2023 7:43 PM Healthcare Agents on File Name Relationship Healthcare Agent [facility] Communication [place] Sheldon Spouse Health Care Agent Chungrobert Varghese Daughter [facility] Health C are Agent Care Teams Gis Database Administrator Relationship Specialty Start Date End Date Carlos Alcala DO [address] [address] [place] [address] PCP - General Internal Medicine 12/25/23 Den Erickson MD [address] [facility] [address] [place] [address] Surgeon Orthopedic Surgery 06/11/19 Alexandrea Sunshine PA [address] [facility] [address] [place] [address] Physician Events Assistant Orthopedic Surgery 01/25/23
--- OUTSIDE RECORDS SUMMARY | 2024-12-28 09:41 | XMS_ITS | Referral Summary ---
Author Organization [facility] 8 [facility] Address [address] [place] [address] Care Team Providers Care Dye Colorist Dyer Name Role Phone Den Erickson MD Unavailable Alexandrea Sunshine Unavailable [phone] Carlos Alcala DO Primary Care Provider [phone] Allergies Active Allergy Reactions Criticality Noted Date [...] 1 tablet (20 mEq total) by mouth compensation agent before breakfast 3 Active LORazepam (ATIVAN) 0.5 [...] 07/12/2023 Assessment & Plan (07/14/2023 11:54 AM RAILWAY SIGNALLING ENGINEER): - EKG and tele showing new onset [...] right rotator cuff 10/14/19 20 Discharge from [facility] 04/14/2014 Resolved Problems Problem Noted Date Diagnosed Date Resolved Date Traumatic rotator cuff tear, right, initial encounter 06/08/2019 10/14/2019 Overview (06/08/2019): Added automatically from request for surgery [id number] Arthritis of right acromioclavicular joint 06/08/2019 10/14/2019 Overview (06/08/2019): Added automatically from request for surgery [id number] 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 06/08/2019 10/14/2019 Overview (06/08/2019): Added automatically from request for surgery [id number] Impingement syndrome of right shoulder 06/08/2019 10/14/2019 Overview (06/08/2019): Added automatically from request for surgery [id number] Immunizations Immunization Administration Dates Next Due Influenza, Quadrivalent, Dagmar l Culture-based MDCK, Antibiotic Free, Intramuscular 05/30/2018 Influenza, Quadrivalent, Dagmar l Culture-based MDCK, Preservative Free, Antibiotic Free, Intramuscular 06/05/2019 Influenza, Trivalent, High D ose, Split, Preservative Free, Intramuscular 04/17/2013 Influenza, Trivalent, IM (MDV) 05/04/2014,2012 Influenza, Trivalent, Preservative Free, Intramu scular 04/08/2017,07/15/2016 Pneumococcal Conjugate PCV 13 07/15/2016 Social History Tobacco Use Types Packs/Day Years [...] on file Legal Sex Female 12:44 AM RAILWAY SIGNALLING ENGINEER Gender Identity Not on file Sexual Orientation Not on file Last Filed Vital Signs Vital Sign Reading Time Taken Comments Blood Pressure 162/74 06/16/2024 1:28 PM RAILWAY SIGNALLING ENGINEER Pulse 96 06/16/2024 1:28 PM RAILWAY SIGNALLING ENGINEER Temperature 36.6 C (97.8 F) 07/19/2023 11:29 AM RAILWAY SIGNALLING ENGINEER Respiratory Rate 15 07/20/2023 8:30 AM RAILWAY SIGNALLING ENGINEER Oxygen Saturation 98% 07/20/2023 8:30 AM RAILWAY SIGNALLING ENGINEER Inhaled Oxygen Concentration - - Weight 62.1 kg (137 lb) 06/16/2024 1:28 PM RAILWAY SIGNALLING ENGINEER Height 160 cm (5' 3) 06/16/2024 1:28 PM RAILWAY SIGNALLING ENGINEER Body Mass Index 24.27 06/16/2024 1:28 PM RAILWAY SIGNALLING ENGINEER Plan of Treatment Not on file Medical Devices Implanted Type Area Occupational Health Physiotherapist Device Identifier Shelf Expiration Date Model / Serial / Lot Arthrex Inc Ar-3633 Arthrex Fibertak Tape 3 Load Rotator Cuff [place] Suture Sterile Latex Free - [id number] Implanted:Qty: 1 on 06/11/2019 by Den Erickson MD at [facility] Right: Shoulder Arthrex Inc 03/02/2024 AR-3633 / / [id number] Arthrex Inc Ar-2324bcc Swivelock C 4.75mm 19.1mm Closed Eyelet Vent Otway Suture - [id number] Implanted:Qty: 1 on 06/11/2019 by Den Erickson MD at [facility] Right: Shoulder Arthrex Inc 04/02/2021 AR-2324BCC / / [id number] Arthrex Inc Arthrex Univers Revers Shoulder 7 Stem Humeral Sterile Ar-9501-07p - [id number] Implanted:Qty: 1 on 01/24/2023 by Den Erickson MD at [facility] Right: Shoulder Arthrex Inc [id number] 03/02/2027 AR-9501-07 P / / [id number] Arthrex Inc Baseplate 24mm 10 Deg Full Augment Oblique Lz-3602-5095 - [id number] Implanted:Qty: 1 on 01/24/2023 by Den Erickson MD at [facility] Right: Shoulder Arthrex Inc [id number] 10/01/2027 AR-9580-24 10 / / [id number] Arthrex Inc Component Glenoid Modular Post Reverse 20mm Ar-9582-20 - [id number] Implanted:Qty: 1 on 01/24/2023 by Den Erickson MD at [facility] Right: Shoulder Arthrex Inc [id number] 08/01/2027 AR-9582-20 / / [id number] Arthrex Inc 36mm 24 Baseplate Taper Sphere Glenoid Jj-0046-5795 - [id number] Implanted:Qty: 1 on 01/24/2023 by Den Erickson MD at [facility] Right: Shoulder Arthrex Inc [id number] 04/02/2026 AR-9564-24 36 / / [id number] Arthrex Inc 5.5mm 24mm Lock Modular Glenoid Screw Bone Ar-9563-24 - [id number] Implanted:Qty: 1 on 01/24/2023 by Den Erickson MD at [facility] Right: Shoulder Arthrex Inc [id number] 10/01/2027 AR-9563-24 / / [id number] Arthrex Inc 5.5mm 36mm Lock Peripheral Screw Bone Sterile Ar-9563-36 - [id number] Implanted:Qty: 1 on 01/24/2023 by Den Erickson MD at [facility] Right: Shoulder Arthrex Inc [id number] 08/01/2027 AR-9563-36 / / [id number] Arthrex Inc Insert Humeral Combo Reverse Poly Univers Revers +3x33mm Xy-7725-5922-3 - [id number] Implanted:Qty: 1 on 01/24/2023 by Den Erickson MD at [facility] Right: Shoulder Arthrex Inc [id number] 01/31/2027 AR-9503-33 36-3 / / [id number] Arthrex Inc Implant Suture Cup Humeral Reverse Right Univers Revers +2x33mm Titanium [id number] - [id number] Implanted:Qty: 1 on 01/24/2023 by Den Erickson MD at [facility] Right: Shoulder Arthrex Inc [id number] 04/02/2027 AR-9502F-3 3RCPC / / [id number] Allosource Crushed Fresh Frozen Cancellous 1-4mm Graft 15ml Bone [id number] - [id number] Implanted:Qty: 1 on 07/09/2023 by Mulugeta Navarrete MD at [facility] Spine Lumbar Allosource 11/21/2027 [id number] / / [id number] Medtronic Inc Kit Graft Bone Sponge Xlg Infuse 8cc Granules 9685251 - [id number] Implanted:Qty: 1 on 07/09/2023 by Mulugeta Navarrete MD at [facility] N/A: Spine Lumbar Medtronic Inc [id number] 12/01/2024 6828893 / / [id number] [place] Spine Graft Bone Filler Gel Bio Dbm 10 7881314 - [id number] Implanted:Qty: 1 on 07/09/2023 by Mulugeta Navarrete MD at [facility] N/A: Spine Lumbar [place] Spine [id number] 01/03/2026 1565230 / / [id number] Spineart Usa Inc Screw Spn Pedicle Sld 5x25mm Sjt-Ls 50 25-S - [id number] Implanted:Qty: 1 on 07/09/2023 by Mulugeta Navarrete MD at [facility] N/A: Spine Lumbar SPINEART USA INC [id number] 12/07/2029 SJT-LS 50 25-S / / [id number] Spineart Usa Inc Cage Secured Lumbar Anterior Small Lordosis 15deg 10 Mm Sca-Ls 15 10-S - [id number] Implanted:Qty: 1 on 07/09/2023 by Mulugeta Navarrete MD at [facility] N/A: Spine Lumbar SPINEART USA INC 01/07/2027 SCA-LS 15 10-S / / [id number] Spineart Usa Inc Screw Spn Pedicle Sld 5x25mm Sjt-Ls 50 25-S - [id number] Implanted:Qty: 1 on 07/09/2023 by Mulugeta Navarrete MD at [facility] N/A: Spine Lumbar SPINEART USA INC [id number] 02/28/2031 SJT-LS 50 25-S / / [id number] Medtronic Inc Kit Graft Bone Sponge Xlg Infuse 8cc Granules 5376960 - [id number] Implanted:Qty: 2 on 07/11/2023 by Mulugeta Navarrete MD at [facility] N/A: Spine Thoracic Medtronic Inc 12/01/2024 [id number] / / Viola Spine Graft Bone Filler Gel Bio Dbm 10 2099793 - [id number] Implanted:Qty: 1 on 07/11/2023 by Mulugeta Navarrete MD at [facility] N/A: Spine Thoracic [employer] Spine [id number] 11/19/2025 8527364 / / [id number] [place] Spine Graft Bone Filler Gel Bio Dbm 10 1815997 - [id number] Implanted:Qty: 1 on 07/11/2023 by Mulugeta Navarrete MD at [facility] N/A: Spine Thoracic Viola Spine [id number] 01/03/2026 7283958 / / [id number] [place] Spine Graft Bone Filler Gel Bio Dbm 10 2167341 - [id number] Implanted:Qty: 1 on 07/11/2023 by Mulugeta Navarrete MD at [facility] N/A: Spine Thoracic [employer] Spine [id number] 01/03/2026 5062433 / / [id number] Viola Spine Graft Bone Filler Gel Bio Dbm 10 4973724 - [id number] Implanted:Qty: 1 on 07/11/2023 by Mulugeta Navarrete MD at [facility] N/A: Spine Thoracic [employer] Spine [id number] 01/03/2026 0406703 / / [id number] Essex Spine Graft Bone Filler Gel Bio Dbm 10 4116676 - [id number] Implanted:Qty: 1 on 07/11/2023 by Mulugeta Navarrete MD at [facility] N/A: Spine Thoracic [employer] Spine [id number] 01/06/2026 6867506 / / [id number] Viola Spine Graft Bone Filler Gel Bio Dbm 10 0616981 - [id number] Implanted:Qty: 1 on 07/11/2023 by Mulugeta Navarrete MD at [facility] N/A: Spine Thoracic Viola Spine [id number] 01/03/2026 3242210 / / [id number] Allosource Crushed Chip Frozen Graft 30ml Bone Cancellous 37010153 - [id number] Implanted:Qty: 1 on 07/11/2023 by Mulugeta Navarrete MD at [facility] N/A: Spine Thoracic Allosource 08/19/2027 12647436 / / [id number] Allosource Crushed Chip Frozen Graft 90ml Bone Cancellous 59497622 - [id number] Implanted:Qty: 1 on 07/11/2023 by Mulugeta Navarrete MD at [facility] N/A: Spine Thoracic Allosource 10/21/2027 98525245 / / [id number] Viola Spine Herndon Spine Screw Set Haney 2901-82673 - [id number] Implanted:Qty: 22 on 07/11/2023 by Mulugeta Navarrete MD at [facility] Viola Spine 2901-1 0001 / / Viola Spine Herndon Od5.5 Mm L45 Mm Polyaxial Spine Screw Bone 2911-26527 - [id number] Implanted:Qty: 5 on 07/11/2023 by Mulugeta Navarrete MD at [facility] Viola Spine 2911-0 5545 / / Viola Spine Herndon 6.5mm 30mm Polyaxial Spine Screw Bone Nonsterile 2911-32476 - [id number] Implanted:Qty: 2 on 07/11/2023 by Mulugeta Navarrete MD at [facility] Essex Spine 2911-0 6530 / / Essex Spine Herndon Od6.5 Mm L40 Mm Polyaxial Spine Screw Bone 2911-89226 - [id number] Implanted:Qty: 2 on 07/11/2023 by Mulugeta Navarrete MD at [facility] Essex Spine 2911-0 6540 / / Essex Spine Herndon Od6.5 Mm L45 Mm Polyaxial Spine Screw Bone 2911-42112 - [id number] Implanted:Qty: 6 on 07/11/2023 by Mulugeta Navarrete MD at [facility] Essex Spine 2911-0 6545 / / Viola Spine Herndon Od6.5 Mm L60 Mm Polyaxial Spine Screw Bone Green 291166888 - [id number] Implanted:Qty: 1 on 07/11/2023 by Mulugeta Navarrete MD at [facility] Viola Spine 2911-0 6560 / / Essex Spine Screw 8.5 Mm Polyaxial - 70 Mm 2911-58192 - [id number] Implanted:Qty: 1 on 07/11/2023 by Mulugeta Navarrete MD at [facility] Essex Spine 2911-0 8570 / / Viola Spine Od8.5 Mm L80 Mm Polyaxial Spine Screw Bone Green 2911-08323 - [id number] Implanted:Qty: 1 on 07/11/2023 by Mulugeta Navarrete MD at [facility] Viola Spine 2911-0 8580 / / Viola Spine Connector Spinal Lateral Thoracolumbar Open Adjustable Offset Herndon 25mm 2901-84675 - [id number] Implanted:Qty: 1 on 07/11/2023 by Mulugeta Navarrete MD at [facility] Essex Spine 2901-7 5525 / / Viola Spine Herndon 35mm Lateral Offset Spine Connector Oswald Nonsterile Latex 2901-44823 - [id number] Implanted:Qty: 3 on 07/11/2023 by Mulugeta Navarrete MD at [facility] [employer] Spine 2901-7 5535 / / Essex Spine L500 Mm Hexagonal End Oswald Spinal Titanium Alloy 101-S00176 - [id number] Implanted:Qty: 2 on 07/11/2023 by Mulugeta Navarrete MD at [facility] [employer] Spine 101-A5 5500 / / Procedures Procedure [...] Bone mineral density was performed on a Adlyfe Discovery Densitometer. Based on machine cross-calibration and [...] by the International Society of Clinical Densitometry. [id number] Mulugeta Navarrete MD IM DXA PROCEDURES F inal Result from Last 3 Months or Most Recently Relevant to Health Maintenance Insurance MEDICARE RAILROAD MEDICARE RAILROAD [facility] MEDICARE RAILROAD [facility] Advance Directives For more information, please contact: [phone] Documents on File Type Date Recorded Patient Medical Screener Expl anation ADVANCE DIRECTIVE 07/10/2023 3:54 PM POWER OF METAL TILE SETTER-MEDICAL ADVANCE DIRECTIVE 07/10/2023 3:30 PM POWER OF METAL TILE SETTER-MEDICAL * Full Code (Latest Code Status on File) Date Activated Date Inactivated Comments 07/09/2023 2:12 PM 07/15/2023 8:53 PM * Full Code Date Activated Date Inactivated Comments 07/08/2023 12:52 PM 07/09/2023 5:13 AM * Full Code Date Activated Date Inactivated Comments 01/24/2023 2:35 PM 01/25/2023 7:43 PM Healthcare Agents on File Name Relationship Healthcare Agent Ely sheikh Communication Israel Chung Spouse Health Care Agent Sheldon Varghese Daughter First Alternate Health C are Agent Care Teams Dye Colorist Dyer Relationship Specialty Start Date End Date Carlos Alcala DO [address] [place] [address] [address] [place] [address] PCP - General Internal Medicine 12/25/23 Den Erickson MD [address] [place] [address] [address] [place] [address] Surgeon Orthopedic Surgery 06/11/19 Alexandrea Sunshine PA [address] [place] [address] [address] [place] [address] Physician Hall Supervisor Orthopedic Surgery 01/25/23
--- OUTSIDE RECORDS SUMMARY | 2024-12-28 09:41 | XMS_ITS | Encounter Summary ---
Author Organization [facility] Healthcare Address [address] [place] [address] Care Team Providers Care Employment Programs Analyst Name Role Phone Den Erickson MD Unavailable [phone] Warren Figueroa MD Primary Care Provider [phone] Alexandrea Sunshine Unavailable [phone] Encounter Details Date Type Department Care Team (Late st Contact Info) Description 03/21/2023 2:03 PM CDT Hospital Encounter [facility] Medical Group Orthopedics and Sports Medicine [address] [place] [address] Social History Tobacco Use Types Packs/Day [...] on file Legal Sex Female 12:44 AM CHANNEL LIP WETTER Gender Identity Not on file Sexual Orientation Not on file documented as of this encounter Functional Status * Audit-C Score Answer Date of Assessment Author 5 [...] COVID: Suspected 07/19/2023 07/19/2023 07/19/2023 7:52 PM CHANNEL LIP WETTER documented as of this encounter Care Teams Employment Programs Analyst Relationship Specialty Start Date End Date Warren Figueroa MD [address] [facility] [address] [place] [address] PCP - General Family Practice 12/19/22 12/24/23 Den Erickson MD [address] [facility] [address] [place] [address] Surgeon Orthopedic Surgery 06/11/19 Alexandrea Sunshine PA [address] [facility] [address] [place] [address] Physician Sand Blaster Orthopedic Surgery 01/25/23 documented as of this encounter
--- OUTSIDE RECORDS SUMMARY | 2024-12-28 09:41 | XMS_ITS | Clinical Summary ---
Author Organization [facility] Maggi Esquivelelizabeth Address [address] [facility] [place] [address] Care Team Providers Care Cone Baker Machine Name Role Phone Warren Figueroa MD Primary Care Provider [phone] Allergies Active Allergy Reactions Criticality Noted Date Comments Chlorhexidine Itching Medium 07/11/2023 Medications FISH FNM-ZYRCL-2-VIT C-VIT E ORAL Take by mouth. Ac tive pantoprazole (PROTONIX) 40 mg Tablet, Delayed Release (E.C.) Take 40 mg by mouth daily. 2 Active multivitamin tx with iron and folic acid tablet 18-400 mg-mcg Tablet 1 Tablet daily. Active metaxalone (SKELAXIN) 800 mg tablet 2 Active magnesium gluconate (MAGONATE) 27 mg (500 mg) Tablet Take 250 mg by mouth daily. Active LORazepam (ATIVAN) 0.5 mg tablet 1 tab 9 Active HYDROcodone-hailey taminophen (NORCO) 5-325 mg tablet TAKE 1 TABLET BY MOUTH EVERY 8-12 HOURS NEEDED 2 Active estradioL (ESTRACE) 1 mg tablet Take 1 mg by mouth daily. 2 Active EPINEPHrine (EPIPEN) 0.3 mg/0.3 mL Auto-Injector INJECT 0.3MG EVERY 5-15 MINUTES NEEDED FOR ANAPHYLAXIS DO NOT EXCEED 3 DOSES 2 Active Cholecalciferol , Vitamin D3, 50 mcg (2,000 unit) Capsule Take 2,000 Units by mouth daily. 9 Active ascorbic acid (VITAMIN C) 500 mg Tablet, Chewable Take one tablet twice daily 9 Active albuterol sulfate 90 mcg/Actuation inhaler INHALE 2 PUFFS BY MOUTH EVERY 4 HOURS NEEDED FOR SHORTNESS OF BREATH OR WHEEZING Active Active Problems Problem Noted Date Diagnosed Date Chronic anemia 02/02/2022 Reactive thrombocytosis 02/02/2022 Encounters Date Type Department Care Team Description 12/16/2024 External Device Data STL ABSTRACTION Provider, Abstract 12/16/2024 External Device Data STL ABSTRACTION Provider, Abstract 12/15/2024 External Device Data STL ABSTRACTION Provider, Abstract 10/21/2024 External Device Data STL ABSTRACTION Provider, Abstract 10/20/2024 External Device Data STL ABSTRACTION Provider, Abstract from Last 3 Months Family History Medical History Relation Name Comments Arthritis-osteo Brother Asthma Daughter Rheumatoid Arthritis Father Cancer Mother Emphysema Mother Pancreatic Cancer Sister Relation Name Status Comments Brother Alive Daughter Alive Father Mother Sister Social History Tobacco Use Types Packs/Day Years Used Date Smoking Tobacco: Former Cigarettes 2 25 0 07/22/1979 - 07/22/2004 Smokeless Tobacco: Never Tobacco Cessation:Counseling Given: Not Answered Alcohol Use Standard Drinks/Week Comments Yes 7 (1 standard drink = 0.6 oz pur e alcohol) Comments Unknown Sex and Gender Information Value Date Recorded Sex Assigned at Not on file Legal Sex Female 9:49 PM CDT Gender Identity Not on file Sexual Orientation Not on file Last Filed Vital Signs Vital Sign Reading Time Taken Comments Blood Pressure 126/69 07/01/2024 10:28 AM RUBBER CUTTER Pulse 82 07/01/2024 10:28 AM RUBBER CUTTER Temperature 36.4 C (97.6 F) 07/01/2024 10:28 AM RUBBER CUTTER Respiratory Rate 16 07/01/2024 10:2 8 AM RUBBER CUTTER Oxygen Saturation 96% 07/01/2024 10: 28 AM RUBBER CUTTER Inhaled Oxygen Concentration - - Weight 62.6 kg (138 lb) 07/01/2024 10:2 8 AM RUBBER CUTTER Patient stated this is the correct weight Height 166.4 cm (5' 5.5) 02/02/2022 11 :48 AM CDT Body Mass Index 22.62 02/02/2022 11:48 AM CDT Plan of Treatment Upcoming Encounters Date Type Department Care Team (Late st Contact Info) Description 12/30/2024 11:00 AM CDT Office Visit [facility] Oncology and Hematology - [place] [address] [place] [address] Elia Escobedo MD [address] [facility] [address] [place] [address] Health Maintenance Due Date Last Done Comments DTAP/TDAP/TD VACCINES (1 - Tdap) 1976 Traditional Medicare (ACO) A nnual Wellness Visit 1974 COLORECTAL SCREENING 2002 Colorectal Cancer Screening 2002 FIT-DNA Q 3 years 2002 FIT/FOBT Q 1 year 2002 Flex Sig/CT Colonography Q 5 years 2002 ZOSTER VACCINE (1 of 2) 2007 RSV VACCINE (60+ or ) (1 - Risk 60-74 years 1-dose series) 2017 INFLUENZA VACCINE (#1) 2025 , 06/05/2019, 05/30/2018, Additional history exists BREAST CANCER SCREENING 04/28/2025 04/28/20 24, 04/28/2024, 10/18/2022, Additional history exists OSTEOPOROSIS SCREENING 03/27/2028 03/27/2023, 2022 PNEUMOCOCCAL VACCINE 50+ YEARS Completed 2022 , 07/15/2016 Insurance MEDICARE RAILROAD [facility] [place] [address] Care Teams Cone Baker Machine Relationship Specialty Start Date End Date Warren Figueroa MD [address] [place] [phone] PCP - General Family Practice 12/12/22
--- OUTSIDE RECORDS SUMMARY | 2024-12-28 09:41 | XMS_ITS | Patient Health Record ---
Author Organization [facility] Address [address] [place], [place] [address] Care Team Providers Care Commercial Pest Control Technician Name Role Phone JACQUELINE LISSETT Primary Care Provider Marshal Cervantes Unavailable [phone] ALLERGIES No Known Allergies REASON FOR REFERRAL No Information MEDICATIONS Medication SIG (Take, Route, Frequency, Duration) Notes Start Date End Date Status Anoro Ellipta 62.5 mcg-25 mcg/inh 1 puff(s) inhaled once a day Active Hydrocodone Acetaminophen 5-325mg Active pantoprazole 40 mg 1 tab(s) orally once a day Active estradiol 1 mg 1 tab(s) orally once a day Active hyoscyamine 0.125 mg 1 tab sub every 4 hours/prn Active LORazepam 0.5 mg 1 tab oral prn Active metaxalone 800 mg 1 tab(s) orally 3 ti mes a day Active DULoxetine Hydrochloride 30 mg 1 cap(s) orally qhs for 30 day(s) 04/13/2021 Active Metoprolol Succinate ER 25 mg 1 tab(s) orally once a day Active atorvastatin 20 mg 1 tab(s) orally once a day Active PROBLEMS Problem Type ICD Code Onset Dates Problem Status W/U Status Risk SNOMED Code Notes Problem Polyarthralgia (719.49) Active confirmed Polyarthralgia (65437708) Problem Myalgia (729.1) Active confirmed Myalgi a (63510896) Problem POLYARTHRITIS (716.59) Active confirmed Polyarthritis (957376870) Problem Fibromyalgia (729.1) Active confirmed Fibromyalgia (164066432) Problem Polyarthralgia (M25.50) Active confirmed 42883190 Problem Myalgia (M79.10) Active confirmed 07689 001 Problem Dry eye (H04.129) Active confirmed 1622 61206 Problem Dry mouth (R68.2) Active confirmed 8771 5008 Problem Morning stiffness of joints (M25.60) Active confirmed 74224254 Problem Low back pain at multiple sites (M54.50) Active confirmed 434114436 Problem Fibromyalgia (M79.7) Active confirmed 943177665 PLAN OF TREATMENT Pending Test Test Name Order Date X ray : Hand, left 01/30/2013 X ray : Hand, right 01/30/2013 AST (IH) 04/12/2021 ALT (IH) 04/12/2021 X ray : Hand left- outside order 021 X ray : Hand right- outside order 2020 X ray : Foot Left- outside order 021 X ray : Foot Right- outside order 2020 DS DNA ANTIBODY, CRITHIDIA, IFA W/REFL Q UEST 03/28/2021 Insurance Providers Payer Name Payer Address Payer Phone Subscriber Number Group Number Insured Name Patient Relationship to Insured Coverage Start Date Coverage End Date [place] [employer] [place] [address] [address] [place] [address] [phone] [id number] Yennifer Chungyl Self - patient is the insured 1 MEDICAL (GENERAL) HISTORY Medical History History ICD Code bruises easily varicose veins bloating broken ankle -rt left stress fracture sores that won't heal anxiety chest pain irregular heart beat poor circulation difficulty breathing indigestion low blood pressure rapid heartbeat Surgical History Surgery Date(Month/Year) neuroma removal-left foot Torn rotator cuff surgery Hospitalization History Reason Date(Month/Year) Fractured Back
--- OUTSIDE RECORDS SUMMARY | 2024-12-28 09:41 | XMS_ITS | Clinical Summary ---
Author Organization [facility] Address [address] [place] [address] Care Team Providers Care Echo Tech Name Role Phone Carlos lAcala DO Primary Care Provider [phone] Cody Andres COMPOUNDING AND FINISHING SUPERVISOR Unavailable [phone] Allergies Active Allergy Reactions Criticality Noted Date Comments Chlorhexidine Other (see comment) 02/27/2024 Severe itching per pt Medications estradiol (ESTRACE) 1 MG tablet Take 1 tablet (1 mg total) by mouth daily. Active atorvastatin (LIPITOR) 20 MG tablet Take 1 tablet (20 mg total) by mouth nightly at bedtime. Active aspirin EC (ECOTRIN) 81 MG tablet Take 1 tablet (81 mg total) by mouth daily. Active LORazepam (ATIVAN) 0.5 MG tablet Take 1 tablet (0.5 mg total) by mouth every 8 (eight) hours as needed for Anxiety. Active HYDROcodone-acetam inophen (NORCO) 5-325 MG tablet Take 1 tablet by mouth 3 (three) times daily as needed for Pain. Active methocarbamol (ROBAXIN) 750 MG Tab Take 1 tablet (750 mg total) by mouth 3 (three) times daily as needed (muscle spasm). Active albuterol sulfate HFA 108 (90 Base) MCG/ACT inhaler Inhale 2 puffs into the lungs every 4 (four) hours as needed for Shortness of breath (every 4-6 hours at home prn). Active gabapentin (NEURONTIN) 300 MG capsule Take 1 capsule (300 mg total) by mouth 3 (three) times daily as needed (nerve pain). Active hyoscyamine (LEVSIN) 0.125 MG tablet Take 1 tablet (0.125 mg total) by mouth every 4 (four) hours as needed for Cramping. 4 Active MAGNESIUM GLUCONATE OR Take 200 mg by mouth daily. Active ondansetron (ZOFRAN-ODT) 4 MG disintegrating tablet Take 1 tablet (4 mg total) by mouth every 6 (six) hours as needed for Nausea. 4 Active pantoprazole EC (PROTONIX) 40 MG tablet Take 1 tablet (40 mg total) by mouth daily. Active potassium chloride CR (KLOR-CON M) 20 MEQ tablet Take 1 tablet (20 mEq total) by mouth daily. 3 Active vitamin C (ASCORBIC ACID) 1000 MG tablet Take 1 tablet (1,000 mg total) by mouth daily. Active biotin 300 MCG Tab Take 1 tablet (300 mcg total) by mouth daily. Active simethicone (MYLICON) 80 MG chewable tablet Chew 1 tablet (80 mg total) by mouth every 6 (six) hours as needed for Flatulence. 5 Active sodium chloride 1 GM tablet Take 1 tablet (1 g total) by mouth 3 (three) times daily with meals. 90 tablet 5 Active lidocaine 4 % patch Place 1 patch onto the skin daily. Remove & Discard patch within 12 hours or as directed by 30 patch Active Active Problems Problem Noted Date Diagnosed Date Hyponatremia 10/08/2024 Lactic acidosis 02/27/2024 Primary hypertension 08/28/2023 Gastroesophageal reflux disease without esophagi tis 08/28/2023 Anxiety 08/28/2023 S/P lumbar fusion 08/28/2023 Encounters Date Type Department Care Team Description 11/22/2024 4:15 PM CDT - 11/24/2024 10:20 AM CDT Hospital Encounter [facility] [address] [place], [place] [id number] Tye Galvan MD Granzo, Daniela, MD Islam, Maaroof, MD Littlejohn, SIMONE WassermanNP Rib Pain Discharge Disposition: Home or Self Care (Routine Discharge) 11/22/2024 Travel 10/24/2024 Telephone [facility] Med/Surg [address] [place], [place] [id number] Kymberly Garcia I, RN Follow Up Call 10/08/2024 7:15 PM CDT - 10/10/2024 1:32 PM CDT Hospital Encounter [facility] Med/Surg [address] [place] [address] Miguel A Brock DO Goldberg, Deborah, MD Dodt, Abigail RMISAEL Flu Like Symptoms Discharge Disposition: Home or Self Care (Routine Discharge) 10/08/2024 Travel from Last 3 Months Family History Medical History Relation Comments Cancer Father Rheumatoid Arthritis Father COPD Mother Cancer Mother Relation Status Comments Father Mother Social History Tobacco Use Types Packs/Day Years Used Date Smoking Tobacco: Former Cigarettes Q uit: 2003 Smokeless Tobacco: Never Tobacco Cessation:Counseling Given: Not Answered Alcohol Use Standard Drinks/Week Comments Yes 8.3 (1 standard drink = 0.6 oz p ure alcohol) B1300 Health Literacy Answer Date Recor ded How often do you need to hav e someone help you when you read instructions, pamphlets, or other written material from your doctor or pharmacy? Never 11/22/2024 [employer] Answer Date Recorded In the past 12 months has e [email or web address], gas, oil, or water [employer] threatened to shut off services in your home? No 11/22/2024 Humiliation, Afraid, Rape, and Kick questionnair e Answer Date Recorded Within the last year, have y ou been afraid of your partner or ex-partner? No 11/22/2024 Within the last year, have y ou been humiliated or emotionally abused in other ways by your partner or ex-partner? No Within the last year, have y ou been kicked, hit, slapped, or otherwise physically hurt by your partner or ex-partner? No 11/22/2024 Within the last year, have y ou been raped or forced to have any kind of sexual activity by your partner or ex-partner? No 11/22/2024 Social Connection and Isolat ion Panel [NHANES] Answer Date Recorded In a typical week, how many times do you talk on the phone with family, friends, or neighbors? More than three times a week 11/22/2024 How often do you get togethe r with friends or relatives? Once a week 11/22/2024 How often do you attend chur ch or hoahaoism services? Never 11/22/2024 Do you belong to any clubs o r organizations such as latter-day groups, unions, fraternal or athletic groups, or school groups? No 11/22/2024 How often do you attend meet ings of the clubs or organizations you belong to? Never 11/22/2024 Are you , , di vorced, , never , or living with a partner? 11/22/2024 AUDIT-C Answer Date Recorded Q1: How often do you have a drink containing alc ohol? 2-3 times a week 11/22/2024 Q2: How many drinks containi ng alcohol do you have on a typical day when you are drinking? 5 or 6 11/22/2024 Q3: How often do you have si x or more drinks on one occasion? Weekly 11/22/2024 Overall Financial Resource Strain (CARDIA) Answe r Date Recorded How hard is it for you to pa y for the very basics like food, housing, medical care, and heating? Not hard at all 11/22/2024 PHQ-2 Answer Date Recorded Patient Health Questionnaire-2 Score 0 11/22/2024 [facility] - Occupational Stress Questionnaire Answer Date Recorded Do you feel stress - tense, restless, nervous, or anxious, or unable to sleep at night because your mind is troubled all the time - these days? Only a little 11/22/2024 Exercise Vital Sign Answer Date Recorde d On average, how many days pe r week do you engage in moderate to strenuous exercise (like a brisk walk)? 0 days 11/22/2024 On average, how many minutes do you engage in exercise at this level? 0 min 11/22/2024 Hunger Vital Sign Answer Date Recorded Within the past 12 months, y ou worried that your food would run out before you got the money to buy more. Never true 11/23/19 25 Within the past 12 months, t he food you bought just didn't last and you didn't have money to get more. Never true 11/22/2024 PRAPARE - Transportation Answer Date Re corded In the past 12 months, has l ack of transportation kept you from medical appointments or from getting medications? No 11/02 In the past 12 months, has l ack of transportation kept you from meetings, work, or from getting things needed for daily living? No 11/22/2024 Housing Stability Vital Sign Answer Sean e Recorded In the last 12 months, was t here a time when you were not able to pay the mortgage or rent on time? No 11/22/2024 In the past 12 months, how m any times have you moved where you were living? 0 11/22/2024 At any time in the past 12 m [facility], were you homeless or living in a fdc (including now)? No 11/22/2024 Comments No Sex and Gender Information Value Date Recorded Sex Assigned at Female 10/08/2024 11:36 PM CDT Legal Sex Female 5:16 PM CDT Gender Identity Female 10/08/2024 11:36 PM CDT Sexual Orientation Straight 11/22/2024 9: 46 PM CDT Last Filed Vital Signs Vital Sign Reading Time Taken Comments Blood Pressure 164/77 11/24/2024 7:23 AM CDT Pulse 80 11/24/2024 7:23 AM CDT Temperature 36.5 C (97.7 F) 11/24/2024 7:23 AM CDT Respiratory Rate 18 11/24/2024 7:23 AM CDT Oxygen Saturation 97% 11/24/2024 7:23 AM CDT Inhaled Oxygen Concentration - - Weight 68.8 kg (151 lb 10.8 oz) 11/24/2024 4:00 AM CDT Height 165.1 cm (5' 5) 11/22/2024 9:39 PM CDT Body Mass Index 25.24 11/22/2024 9:39 PM CDT Plan of Treatment Health Maintenance Due Date Last Done Comments Colorectal Cancer Screening Colonoscopy (10 Years) 1957 DTaP, Tdap and Td Vaccines (1 - Tdap) 1976 Mammogram Screening 1997 Annual Medicare Wellness Visit 2022 COVID-19 Vaccine ( season) 2024 09/11/2020, 08/12/2020 RSV Immunization or 60+ Years (1 - 1-dose 75+ series) 2032 Zoster Vaccines Completed 05/08/2022, 03/08/2022 Dexa Scan (General) Completed 03/27/2023, Pneumococcal Vaccine: 50+ Years Completed 04/28/2023, 2022, 03/15/2022, Additional history exists Hepatitis C Completed 10/09/2024 PHQ-2 (Physician [place]) Completed 11/22/2024 Meningococcal B Vaccine Aged Out No l onger eligible based on patient's age to complete this topic Meningococcal Vaccine Aged Out No charbel denise eligible based on patient's age to complete this topic RSV Immunizations Under 20 Months Aged Out No longer eligible based on patient's age to complete this topic Goals Goal Patient Goal Type Associated Problems Recent Progress Patient-Stated? 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 Procedure Name Priority Date/Time Associated Diagnosis Comments CBC W/DIFF AUTOMATED STAT 11/24/2024 8:30 AM CDT BASIC METABOLIC PANEL STAT 11/24/2024 8:30 AM CDT BASIC METABOLIC PANEL TIMED 11/23/2024 7:40 PM CDT OSMOLALITY, URINE Routine 11/23/2024 1:0 0 PM CDT SODIUM URINE RANDOM Routine 11/23/2024 1 :00 PM CDT MAGNESIUM Routine 11/23/2024 12:23 PM CDT BASIC METABOLIC PANEL TIMED 11/23/2024 12:23 PM CDT OSMOLALITY, BLOOD Routine 11/23/2024 6:2 1 AM CDT PROCALCITONIN (PCT) Routine 11/23/2024 6 :21 AM CDT LIPID PANEL Routine 11/23/2024 6:21 AM CDT THYROID STIM HORMONE TSH Routine 11/23/2024 6:21 AM CDT MAGNESIUM Routine 11/23/2024 6:21 AM CDT COMPREHENSIVE METABOLIC PANEL Routine 11/23/2024 6:21 AM CDT PARTIAL THROMBOPLASTIN TIME,PTT Routine 11/23/2024 6:21 AM CDT PROTHROMBIN TIME, VENOUS Routine 11/23/2024 6:21 AM CDT CBC W/DIFF AUTOMATED Routine 11/23/2024 6:21 AM CDT BASIC METABOLIC PANEL STAT 11/22/2024 7:39 PM CDT ELECTROLYTES URINE STAT 11/22/2024 6: 19 PM CDT URINALYSIS, AUTO, COMPLETE STAT 11/22/2024 6:19 PM CDT XR SHOULDER LT 3V STAT 11/22/2024 5:[address] CHEST+ABD+PEL W CON STAT 5:32 PM CDT LIPASE STAT 11/22/2024 4:40 PM CDT COMPREHENSIVE METABOLIC PANEL STAT 11/22/2024 4:40 PM CDT CBC W/DIFF AUTOMATED STAT 11/22/2024 4:40 PM CDT POCT GLUCOSE - DOCKED DEVICE Routine 10/10/2024 11:35 AM CDT POCT GLUCOSE - DOCKED DEVICE Routine 10/10/2024 7:50 AM CDT MAGNESIUM Routine 10/10/2024 7:09 AM CDT COMPREHENSIVE METABOLIC PANEL Routine 10/10/2024 7:09 AM CDT CBC W/DIFF AUTOMATED Routine 10/10/2024 7:09 AM CDT POCT GLUCOSE - DOCKED DEVICE Routine 10/09/2024 7:33 PM CDT US ABD LIMITED Today 10/09/2024 4:25 PM CDT POCT GLUCOSE - DOCKED DEVICE Routine 10/09/2024 4:20 PM CDT HEPATITIS PANEL,ACUTE Routine 10/09/2024 1:27 PM CDT HEMOGLOBIN, GLYCOSYLATED Routine 10/09/2024 1:27 PM CDT XR CHEST PORTABLE STAT 10/09/2024 1:1 4 PM CDT POCT GLUCOSE - DOCKED DEVICE Routine 10/09/2024 11:41 AM CDT POCT GLUCOSE - DOCKED DEVICE Routine 10/09/2024 9:38 AM CDT PROCALCITONIN (PCT) Routine 10/09/2024 5 :17 AM CDT MAGNESIUM Routine 10/09/2024 5:17 AM CDT COMPREHENSIVE METABOLIC PANEL Routine 10/09/2024 5:17 AM CDT CBC W/DIFF AUTOMATED Routine 10/09/2024 5:17 AM CDT ECG 12-LEAD STAT 10/09/2024 3:[address] ABD+PEL W CON STAT 10/08/2024 9:25 PM CDT LIPASE STAT 10/08/2024 8:10 PM CDT COMPREHENSIVE METABOLIC PANEL STAT 10/08/2024 8:10 PM CDT CBC W/DIFF AUTOMATED STAT 10/08/2024 8:10 PM CDT XR CHEST PA+LAT STAT 10/08/2024 7:39 PM CDT INFLUENZA A & B STAT 10/08/2024 7:28 PM CDT CORONAVIRUS (COVID 19) STAT 7:28 PM CDT from Last 3 Months Results * (ABNORMAL) BASIC METABOLIC PANEL (11/24/2024 8:30 AM CDT) Only the most recent of4 resultswithin the time period is included. GLUCOSE 99 70 - 99 MG/DL 11/24/2024 8:52 AM CDT [facility] BUN 3(L) 7 - 18 MG/DL 11/24/2024 8:52 AM CDT [facility] CREATININE S/P/B 0.58 0.55 - 1.02 MG/DL 11/24/2024 8:52 AM CDT [facility] SODIUM S/P/B 134(L) 136 - 145 MMOL/L 11/24/2024 8:52 AM CDT [facility] POTASSIUM S/P/B 3.8 3.5 - 5.1 MMOL/L 11/24/2024 8:52 AM CDT [facility] CHLORIDE S/P/B 100 100 - 108 MMOL/L 11/24/2024 8:52 AM CDT [facility] CO2 27.0 21 - 32 MMOL/L 11/24/2024 8:52 AM CDT [facility] CALCIUM S/P/B 8.4(L) 8.5 - 10.1 MG/DL 11/24/2024 8:52 AM CDT [facility] ANION GAP 7.0 5 - 15 MMOL/L 11/24/2024 8:52 AM CDT [facility] BUN CREATININE RATIO 5.2(L) 6 - 26 11/24/2024 8:52 AM CDT [facility] GFR ESTIMATE >90 >90 ML/MIN/1.7 3 M2 11/24/2024 8:52 AM CDT [facility] Comment: NOTE: eGFR is not calculated for patients <18 years of age. This is an estimated GFR calculation using the new CKD EPI creatinine equation without race and so does not require a correction factor for race. This estimated GFR should not be used for calculating drug doses. 11/24/2024 8:30 AM CDT us Alexandrea aBr APNP LABORATORY Final Res ult [facility] [address] [place] [address], [place] [phone] * (ABNORMAL) CBC W/DIFF AUTOMATED (11/24/2024 8:30 AM CDT) Only the most recent of6 resultswithin the time period is included. WBC 3.04(L) 4.4 - 11.0 x10'3/uL 11/24/2024 8:40 AM CDT [facility] RBC 2.98(L) 4.50 - 5.10 x10'6/uL 11/24/2024 8:40 AM CDT [facility] HGB 10.3(L) 12.3 - 15.3 G/DL 11/24/2024 8:40 AM CDT [facility] HCT 30.1(L) 35.9 - 44.6 % 11/24/2024 8:40 AM CDT [facility] MCV 101.0(H) 80.0 - 96.0 FL 11/24/2024 8:40 AM CDT [facility] MCH 34.6(H) 25.3 - 30.9 PG 11/24/2024 8:40 AM [facility] MCHC 34.2(H) 31.0 - 34.1 G/DL 11/24/2024 8:40 AM [facility] RDW 13.6 12.4 - 15.1 % 11/24/2024 8:40 AM [facility] PLT 198 151 - 353 x10'3/uL 11/24/2024 8:40 AM [facility] MPV 9.3(L) 9.6 - 12.0 FL 11/24/2024 8:40 AM [facility] RBC MORPHOLOGY NORMAL 11/24/2024 8:40 AM [facility] PLT MORPH. NORMAL 11/24/2024 8:40 AM [facility] WBC MORPHOLOGY NORMAL 11/24/2024 8:40 AM [facility] LYMPHOCYTES % 21.4 15.8 - 45.0 % 11/24/2024 8:40 AM [facility] NEUTROPHILS % 51.3 42.1 - 71.9 % 11/24/2024 8:40 AM T [facility] MONOCYTES % 17.1(H) 5.7 - 12.5 % 11/24/2024 8:40 AM [facility] EOSINOPHILS 7.9(H) 0.0 - 5.6 % 11/24/2024 8:40 AM [facility] BASOPHILS 2.0(H) 0.0 - 1.3 % 11/24/2024 8:40 AM [facility] ABS. NEUTROPHILS 1.56 1.40 - 6.00 x10'3/uL 11/24/2024 8:40 AM CDT [facility] IMMATURE GRANS % 0.3 0.0 - 0.5 % 11/24/2024 8:40 AM CDT [facility] ABS. LYMPHOCYTES 0.65(L) 0.80 - 4.70 x10'3/uL 11/24/2024 8:40 AM CDT [facility] 11/24/2024 8:30 AM CDT Alexandrea Rosales Dipika AMAYA LABORATORY Final Res ult Performing Organization Address City/[facility]/ZIP Co de Phone Number [facility] [address] [place] [address], [place] [phone] * SODIUM URINE RANDOM (11/23/2024 1:00 PM CDT) NA RANDOM (U) 18 MMOL/L 11/24/2024 11:00 AM CDT [facility] Comment: NOTE: The reference range and other method performance specifications have not been determined for chemistry testing in this type of body fluid. Results should be integrated into clinical context for interpretation. URINE SPECIMEN / Unknown 11/23/2024 1:00 PM CDT Alexandrea Connie AMAYA URINE ORDERABLES Final Re sult Performing Organization Address City/[facility]/ZIP Co de Phone Number [facility] [address] [place] [address], [place] [phone] * OSMOLALITY, URINE (11/23/2024 1:00 PM CDT) OSMOLALITY (U) 347 50 - 1,200 MOSM/KG 11/23/2024 8:30 PM CDT [facility] URINE SPECIMEN / Unknown 11/23/2024 1:00 PM CDT Alexandrea Bar MONIQUE URINE ORDERABLES Final Re sult [facility] [address] [place] [address], [place] [phone] * MAGNESIUM (11/23/2024 12:23 PM CDT) Only the most recent of4 resultswithin the time period is included. MAGNESIUM 2.2 1.8 - 2.4 MG/DL 11/23/2024 12:39 PM CDT [facility] 11/23/2024 12:2 3 PM CDT Alexandrea Bar SIMONENP LABORATORY Final Res ult Performing Organization Address [facility]/ZIP Co de Phone Number [facility] [address] [place] [address], [place] [phone] * PROCALCITONIN (PCT) (11/23/2024 6:21 AM CDT) Only the most recent of2 resultswithin the time period is included. PROCALCITONIN 0.07 0.00 - 0.25 NG/ML 11/23/2024 9:35 AM CDT [facility] Comment: PROCALCITONIN INTERPRETATION GUIDELINES LOWER RESPIRATORY TRACT INFECTIONS (LRTI): USE OF PCT IN INPATIENT OR EMERGENCY SITUATION INITIATION OF ANTIBIOTICS PCT VALUE INTERPRETATION <0.10 NG/ML ANTIBIOTIC THERAPY STRONGLY DISCOURAGED. 0.10-0.25 NG/ML ANTIBIOTIC THERAPY DISCOURAGED. 0.26-0.50 NG/ML ANTIBIOTIC THERAPY ENCOURAGED. >0.50 NG/ML ANTIBIOTIC THERAPY STRONGLY ENCOURAGED. DISCONTINUE ANTIBIOTICS PCT LESS THAN OR EQUAL TO 0.25 NG/ML OR DELTA PCT >80 PERCENT DELTA PCT= PCT(PEAK)-PCT(CURRENT)/PCT(PEAK)X100% STUDIES HAVE EVALUATED PCT PROTOCOLS IN THESE PATIENTS AND FOUND THAT FOR PATIENTS WHO ARE CLINICALLY STABLE AND ARE TREATED AT THE ED OR ARE HOSPITALIZED, THE INITIATION OF ANTIBIOTIC THERAPY SHOULD BE BASED ON CLINICAL GROUNDS AND A PCT VALUE OF GREATER THAN OR EQUAL TO 0.26 NG/ML. IF PCT REMAINS LOWER, ANTIBIOTICS CAN BE WITHHELD AND PATIENTS CAN BE REASSESSED CLINICALLY WITHOUT SAFETY CONCERNS. IF PATIENTS ARE CLINICALLY STABLE, AN ALTERNATIVE DIAGNOSIS SHOULD BE CONSIDERED. IF PATIENTS ARE UNSTABLE, THEN ANTIBIOTICS MAY BE CONSIDERED. IF PATIENTS DO NOT IMPROVE IN THE SHORT FOLLOW UP PERIOD OF 6 TO 12 HOURS, CLINICAL RE-EVALUATION AND RE-MEASUREMENT OF PCT IS RECOMMENDED. 11/23/2024 6:21 AM CDT Alexandrea AMAYA LABORATORY Final Res ult Performing Organization Address City/[facility]/ZIP Co de Phone Number [facility] [address] [place] [address], * PARTIAL THROMBOPLASTIN TIME,PTT (11/23/2024 6:21 AM CDT) PTT 31.9 25.1 - 36.5 SEC 11/23/2024 6:40 AM CDT [facility] 11/23/2024 6:21 AM CDT Arthur Segura MD LABORATORY Final Result Performing Organization Address [facility]/ZIP Co de Phone Number [facility] [address] [place] [address], [place] [phone] * PROTHROMBIN TIME, VENOUS (11/23/2024 6:21 AM CDT) PROTIME 11.2 9.1 - 12.4 SEC 11/23/2024 6:40 AM CDT [facility] INR 1.0 11/23/2024 6:40 AM CDT [facility] Comment: Recommend INR ranges for Oral Anticoagulant Therapy: Mechanical Cardiac Values 2.5-3.5 All others indication 2.0-3.0 11/23/2024 6:21 AM CDT Arthur Segura MD LABORATORY Final Result [facility] [address] [place] [address], [place] [phone] * (ABNORMAL) COMPREHENSIVE METABOLIC PANEL (11/23/2024 6:21 AM CDT) Only the most recent of5 resultswithin the time period is included. [facility] GLUCOSE 95 70 - 99 MG/DL 11/23/2024 7:06 AM CDT [facility] BUN 4(L) 7 - 18 MG/DL 11/23/2024 7:06 AM T [facility] CREATININE S/P/B 0.75 0.55 - 1.02 MG/DL 11/23/2024 7:06 AM T [facility] SODIUM S/P/B 132(L) 136 - 145 MMOL/L 11/23/2024 7:06 AM T [facility] POTASSIUM S/P/B 4.5 3.5 - 5.1 MMOL/L 11/23/2024 7:06 AM T [facility] CHLORIDE S/P/B 95(L) 100 - 108 MMOL/L 11/23/2024 7:06 AM T [facility] CO2 29.0 21 - 32 MMOL/L 11/23/2024 7:06 AM T [facility] CALCIUM S/P/B 8.4(L) 8.5 - 10.1 MG/DL 11/23/2024 7:06 AM T [facility] BILIRUBIN TOTAL S/P/B 0.9 0.2 - 1.2 MG/DL 11/23/2024 7:06 AM T [facility] TOTAL PROTEIN S/P/B 6.3(L) 6.4 - 8.2 G/DL 11/23/2024 7:06 AM T [facility] ALBUMIN S/P/B 3.4 3.4 - 5.0 G/DL 11/23/2024 7:06 AM T [facility] AST 70(H) 15 - 37 U/L 11/23/2024 7:06 AM T [facility] ALT 32 14 - 55 U/L 11/23/2024 7:06 AM T [facility] ALKALINE PHOSPHATASE S/P/B 122 50 - 136 U/L 11/23/2024 7:06 AM T [facility] ANION GAP 8.0 5 - 15 MMOL/L 11/23/2024 7:06 AM [facility] BUN CREATININE RATIO 5.3(L) 6 - 11/23/2024 7:06 AM [facility] A/G RATIO 1.2 1.0 - 2.0 RATIO 11/23/2024 7:06 AM [facility] GFR ESTIMATE 87(L) >90 ML/MIN/1.7 3 M2 11/23/2024 7:06 AM [facility] Comment: NOTE: eGFR is not calculated for patients <18 years of age. This is an estimated GFR calculation using the new CKD EPI creatinine equation without race and so does not require a correction factor for race. This estimated GFR should not be used for calculating drug doses. 11/23/2024 6:21 AM CDT Arthur Segura MD LABORATORY Final Result [facility] [address] [place] [address], [place] [phone] * (ABNORMAL) LIPID PANEL (11/23/2024 6:21 AM CDT) CHOLESTEROL 204(H) <200.0 MG/DL 11/23/2024 6:52 AM CDT [facility] TRIGLYCERIDES 84 <150 MG/DL 11/23/2024 6:52 AM CDT [facility] HDL 138 >40.0 MG/DL 11/23/2024 6:52 AM CDT [facility] LDL (CALCULATED) 49 <100 MG/DL 11/23/2024 6:52 AM T [facility] Comment:CALCULATED USING THE [employer]AL[employer] EQUATION NON HDL CHOLESTEROL 66 <130 MG/DL 11/23/2024 6:52 AM T [facility] CHOL/HDL RATIO 1.5 0.0 - 4.5 11/23/2024 6:52 AM T [facility] VLDL CALCULATION 17 5 - 55 MG/DL 11/23/2024 6:52 AM T [facility] LIPID INTERPRETATION 11/23/2024 6:52 AM T [facility] Comment: [facility] CONCENSUS REPORT RECOMMENDATIONS: ADULT CHILD LOW RISK: CHOLESTEROL <200 <170 TRIGLYCERIDE <150 --- HDL >=60 --- LDL <100 <110 BORDERLINE: CHOLESTEROL 200-239 170-199 TRIGLYCERIDE 150-199 --- HDL 40-59 --- LDL 100-159 110-129 HIGH RISK: CHOLESTEROL >=240 >=200 TRIGLYCERIDE >=200 --- HDL <40 --- LDL >=160 >=130 11/23/2024 6:21 AM CDT Arthur Segura MD LABORATORY Final Result [facility] [address] [place] [address], [place] [phone] * THYROID STIM HORMONE, TSH (11/23/2024 6:21 AM CDT) TSH 3.382 0.358 - 3.74 uIU/ML 11/23/2024 7:06 AM CDT [facility] Comment: HIGH DOSES OF BIOTIN MAY INTERFERE WITH THIS TEST RESULT. CORRELATION TO CLINICAL HISTORY AND PRESENTATION RECOMMENDED. 11/23/2024 6:21 AM CDT Arthur Segura MD LABORATORY Final Result Performing Organization Address [facility]/ZIP Co de Phone Number [facility] [address] [place] [address], [place] [phone] * OSMOLALITY, BLOOD (11/23/2024 6:21 AM CDT) [facility] OSMOLALITY (S/P/B) 272 270 - 290 MOSM/KG 11/23/2024 2:03 PM CDT [facility] 11/23/2024 6:21 AM CDT Alexandrea AMAYA LABORATORY Final Res ult Performing Organization Address [facility] de Phone Number [facility] [address] [place] [address], [place] [phone] * ELECTROLYTES URINE (11/22/2024 6:19 PM CDT) [facility] NA RANDOM (U) 39 MMOL/L 11/23/2024 10:56 AM CDT [facility] Comment: NOTE: The reference range and other method performance specifications have not been determined for chemistry testing in this type of body fluid. Results should be integrated into clinical context for interpretation. K RANDOM (U) 13.2 MMOL/L 11/23/2024 10:56 AM CDT [facility] Comment: NOTE: The reference range and other method performance specifications have not been determined for chemistry testing in this type of body fluid. Results should be integrated into clinical context for interpretation. CHLORIDE RANDOM (U) 53 MMOL/L 11/23 10:56 AM CDT [facility] Comment: NOTE: The reference range and other method performance specifications have not been determined for chemistry testing in this type of body fluid. Results should be integrated into clinical context for interpretation. URINE SPECIMEN / Unknown 11/22/2024 6:19 PM CDT Tye Galvan MD URINE ORDERABLES Final Result [facility] [address] [place] [address], [place] [phone] * Urinalysis, Auto, Complete (11/22/2024 6:19 PM CDT) COLOR (U) YELLOW 11/22/2024 6:57 PM CDT [facility] TRANSPARENCY CLEAR 11/22/2024 6:57 PM CDT [facility] SPECIFIC GRAVITY (U) <1.005 1.000 - 1.030 11/22/2024 6:57 PM CDT [facility] U PH 6.0 5.0 - 9.0 11/22/2024 6:57 PM CDT [facility] LEUKOCYTES (U) NEGATIVE NEGATIVE 11/22/2024 6:57 PM CDT [facility] NITRITES NEGATIVE NEGATIVE 11/22/2024 6:57 PM CDT [facility] PROTEIN RANDOM (U) NEGATIVE NEGATIVE 11/22/2024 6:57 PM CDT [facility] GLUCOSE (U) NEGATIVE NEGATIVE 11/22/2024 6:57 PM T [facility] KETONES MG/DL (U) NEGATIVE NEGATIVE 11/22/2024 6:57 PM CDT [facility] BILIRUBIN (U) NEGATIVE NEGATIVE 11/22/2024 6:57 PM CDT [facility] BLOOD (U) NEGATIVE NEGATIVE 11/22/2024 6:57 PM CDT [facility] WBC/HPF NONE SEEN 0 - 5 /HPF 11/22/2024 6:57 PM CDT [facility] RBC/HPF NONE SEEN 0 - 5 /HPF 11/22/2024 6:57 PM CDT [facility] EPI/HPF RARE /HPF 11/22/2024 6:57 PM CDT [facility] URINE SPECIMEN OBTAINED BY CLEAN CATCH PROCEDURE / Unknown 11/22/2024 6:19 PM CDT Tye Galvan MD URINE ORDERABLES Final Result Performing Organization Address City/State/[facility] Co de Phone Number [facility] [address] [place] [address], [place] [phone] * XR SHOULDER LT 3V (11/22/2024 5:38 PM CDT) Anatomical Region Laterality Modality Shoulder Radiographic Paige ging 11/22/2024 6:39 PM CDT Impressions 11/22/2024 6:42 PM CDT IMPRESSION: DEGENERATIVE CHANGE OF THE LEFT SHOULDER. NO ACUTE TRAUMATIC ABNORMALITY. Referred By: Interpreted By: Miguel A Beckford MD, 11/22/2024 6:39 PM Narrative 11/22/2024 6:42 PM CDT [facility] [address] [place] [address] EXAM: XR SHOULDER LT 3V INDICATION: Patient fell. TECHNIQUE: AP, oblique and transscapular views of the left shoulder obtained. COMPARISON EXAM: None. FINDINGS: No acute skeletal, articular or soft tissue abnormality. Mild glenohumeral and acromioclavicular arthritic change. Visualized left hemithorax is intact. Procedure Note Miguel A Beckford MD - 11/22/2024 [facility] [address] [place] [id number] EXAM: XR SHOULDER LT 3V INDICATION: Patient fell. TECHNIQUE: AP, oblique and transscapular views of the left shoulderobtained. COMPARISON EXAM: None. FINDINGS: No acute skeletal, articular or soft tissue abnormality. Mildglenohumeral and acromioclavicular arthritic change. Visualized lefthemithorax is intact. IMPRESSION: DEGENERATIVE CHANGE OF THE LEFT SHOULDER. NO ACUTE TRAUMATICABNORMALITY. Referred By: Interpreted By: Miguel A Beckford MD, 11/22/2024 6:39 PM Tye Galvan MD GENERAL IMAGING Final Result * CT CHEST+ABD+PEL W CON (11/22/2024 5:32 PM CDT) Anatomical Region Laterality Modality Chest, Abdomen, Pelvis Computed Tomography 11/22/2024 6:41 PM CDT Impressions 11/22/2024 7:01 PM CDT IMPRESSION: 1. No posttraumatic chest findings. 2. Small indeterminate density in each breast. 3. No acute findings in the abdomen or pelvis. 4. No acute bone findings allowing for the extensive abnormalities in the lumbar spine. Referred By: Interpreted By: Hunter Lobo MD, 11/22/2024 6:41 PM Narrative 11/22/2024 7:01 PM CDT [facility] [address] [place] [id number] EXAM: CT CHEST+ABD+PEL W CON DATE: 11/22/2024 COMPARISON: Abdomen and pelvis 10/08/2024 INDICATION: Fell, left-sided pain TECHNIQUE: Postcontrast imaging with 75 cc intravenous Isovue-370 A dose lowering technique was used for this procedure, which may include, but is not limited to, dose reduction technique, automated exposure control, iterative reconstruction, ALARA (As Low As Reasonably Achievable), or Image Gently techniques. FINDINGS: CHEST: Normal enhancement of the mediastinal structures. Small hiatal hernia is collapsed. No pleural effusion. Emphysema. No pneumothorax. There is a small focal soft tissue density in each breast. Indeterminant appearance with CT. Recommend mammographic follow-up unless patient is up-to-date on screening schedule. This finding measures about 7 mm. ABDOMEN AND PELVIS: Uniform enhancement of a diffusely fatty infiltrated liver. Normal enhancement of the spleen, adrenal glands, and atrophic pancreas. Normal gallbladder. Normal enhancement of the kidneys. There is probably a small cyst and superior tip of the left kidney. This is too small to characterize. Urinary bladder is mildly over distended but otherwise normal. Moderate volume of feces. Normal appearance of the stomach and small bowel. Normal appendix. No free fluid in the abdomen or pelvis. BONES: No acute findings in the chest. Severe lumbar levoscoliosis. Diffuse lumbar degenerative disc disease. Multilevel laminectomies. Diffuse distribution of heterogeneous bone graft material. Bilateral posterior fusion from T10 through the pelvis. Large hypodense collection posteriorly at L4 is unchanged. Heterogeneous density in multiple vertebral bodies. Previous vertebroplasty at L3. The hardware appears intact. Procedure Note Hunter Lobo MD - 11/22/2024 [facility] [address] [place] [address] EXAM: CT CHEST+ABD+PEL W CON DATE: 11/22/2024 COMPARISON: Abdomen and pelvis 10/08/2024 INDICATION: Fell, left-sided pain TECHNIQUE: Postcontrast imaging with 75 cc intravenous Isovue-370 A dose lowering technique was used for this procedure, which may include,but is not limited to, dose reduction technique, automated exposurecontrol, iterative reconstruction, ALARA (As Low As ReasonablyAchievable), or Image Gently techniques. FINDINGS: CHEST: Normal enhancement of the mediastinal structures. Small hiatalhernia is collapsed. No pleural effusion. Emphysema. No pneumothorax. There is a small focal soft tissue density in each breast. Indeterminantappearance with CT. Recommend mammographic follow-up unless patient [id number] on screening schedule. This finding measures about 7 mm. ABDOMEN AND PELVIS: Uniform enhancement of a diffusely fatty infiltratedliver. Normal enhancement of the spleen, adrenal glands, and atrophicpancreas. Normal gallbladder. Normal enhancement of the kidneys. Thereis probably a small cyst and superior tip of the left kidney. This is toosmall to characterize. Urinary bladder is mildly over distended butotherwise normal. Moderate volume of feces. Normal appearance of the stomach and smallbowel. Normal appendix. No free fluid in the abdomen or pelvis. BONES: No acute findings in the chest. Severe lumbar levoscoliosis.Diffuse lumbar degenerative disc disease. Multilevel laminectomies.Diffuse distribution of heterogeneous bone graft material. Bilateralposterior fusion from T10 through the pelvis. Large hypodense collectionposteriorly at L4 is unchanged. Heterogeneous density in multiplevertebral bodies. Previous vertebroplasty at L3. The hardware appearsintact. IMPRESSION: 1. No posttraumatic chest findings. 2. Small indeterminate density in each breast. 3. No acute findings in the abdomen or pelvis. 4. No acute bone findings allowing for the extensive abnormalities in thelumbar spine. Referred By: Interpreted By: Hunter Lobo MD, 11/22/2024 6:41 PM us Tye Galvan MD CT Final Result * LIPASE (11/22/2024 4:40 PM CDT) Only the most recent of2 resultswithin the time period is included. Pathologist [facility] LIPASE 18 16 - 77 UNITS/L 11/22/2024 5:16 PM CDT [facility] 11/22/2024 4:40 PM CDT us Tye Galvan MD LABORATORY Final Result [facility] [address] [place] [address], [place] [phone] * (ABNORMAL) POCT glucose (10/10/2024 11:35 AM CDT) Only the most recent of6 resultswithin the time period is included. Pathologist [facility] GLUCOSE POC 116(H) 70 - 110 mg/dL 10/10/2024 12:38 PM CDT [facility] 10/10/2024 11:3 5 AM CDT Abigail Mandel CERTIFIED SCRUB TECH POCT ORDERABLES - DEVICE Final Result [facility] [address] [place] [address], * [place] ABD LIMITED (10/09/2024 4:25 PM CDT) Anatomical Region Laterality Modality Abdomen Ultrasound 10/09/2024 4:32 PM CDT Impressions 10/09/2024 4:36 PM CDT IMPRESSION: 1. Distended gallbladder without calculi or sludge. Mild pain while imaging over the gallbladder. If indicated follow-up with nuclear medicine scan. Ordered By: ABIGAIL MANDEL Interpreted By: Trey Sykes, 10/09/2024 4:32 PM Narrative 10/09/2024 4:36 PM CDT [facility] [address] [place] [place] [address] IMAGING STUDIES: US ABD LIMITED DATE: 10/09/2024 3:27 PM COMPARISON STUDIES: CT abdomen of 10/08/2024 CLINICAL HISTORY: Distended gallbladder. Elevated liver function studies. FINDINGS: Distended gallbladder up to 9.1 cm.. No shadowing calculi. No sludge. No gallbladder wall thickening or adjacent fluid. Mild fatty infiltration of the liver without focal mass..Hepatic and portal veins are patent.. Common bile duct measures.6.9 mm. Upper limits of normal for this age group.. Right kidney measures7.9 x 3.8 x 4.5 cm. No focal mass or hydronephrosis.. Mildly thin cortex. Partially visualized pancreas without gross abnormality. Procedure Note Tonny Sykes MD - 10/09/2024 [facility] [address] [place] [place] [address] IMAGING STUDIES: [place] ABD LIMITED DATE: 10/09/2024 3:27 PM COMPARISON STUDIES: CT abdomen of 10/08/2024 CLINICAL HISTORY: Distended gallbladder. Elevated liver functionstudies. FINDINGS: Distended gallbladder up to 9.1 cm.. No shadowing calculi. No sludge. Nogallbladder wall thickening or adjacent fluid. Mild fatty infiltration of the liver without focal mass..Hepatic andportal veins are patent.. Common bile duct measures.6.9 mm. Upper limitsof normal for this age group.. Right kidney measures7.9 x 3.8 x 4.5 cm. No focal mass or hydronephrosis..Mildly thin cortex. Partially visualized pancreas without gross abnormality. IMPRESSION: 1. Distended gallbladder without calculi or sludge. Mild pain whileimaging over the gallbladder. If indicated follow-up with nuclear medicinescan. Ordered By: ABIGAIL MANDEL Interpreted By: Trey Sykes, 10/09/2024 4:32 PM Abigail Mandel APRN ULTRASOUND Final Result * HEMOGLOBIN, GLYCOSYLATED (10/09/2024 1:27 PM CDT) HGB A1C 4.6 <5.7 % 10/09/2024 1:57 PM CDT [facility] Comment: INCREASED RISK OF DIABETES <5.7% NON-DIABETES 5.7-6.4% INCREASED RISK FOR FUTURE DIABETES > OR = 6.5 CONSISTENT WITH DIABETES STANDARDS OF MEDICAL CARE IN DIABETES-2010 DIABETES CARE, 33(SUPP 1): S1-S61,2010 ESTIMATED AVG GLUCOSE 85 mg/dL 10/09/2024 1:57 PM CDT [facility] 10/09/2024 1:27 PM CDT Abigail Mandel APRN LABORATORY Final Result [facility] [address] [place] [address], [place] [phone] * HEPATITIS PANEL,ACUTE (10/09/2024 1:27 PM CDT) HEPATITIS B SURFACE AG NON-REACTI VE NON-REACTI VE 10/09/2024 10:40 PM CDT [facility] HEP B CORE IGM NON-REACTI VE NON-REACTI VE 10/09/2024 10:40 PM CDT [facility] HAV IGM NON-REACTI VE NON-REACTI VE 10/09/2024 10:40 PM CDT [facility] HEPATITIS C AB NON-REACTI VE NON-REACTI VE 10/09/2024 10:40 PM CDT [facility] 10/09/2024 1:27 PM CDT Abigail Mandel CERTIFIED SCRUB TECH LABORATORY Final Result [facility] [address] [place] [address], [place] [phone] * XR CHEST PORTABLE (10/09/2024 1:14 PM CDT) Anatomical Region Laterality Modality Chest Radiographic Paige ging 10/09/2024 1:14 PM CDT Impressions 10/09/2024 1:14 PM CDT IMPRESSION: No acute findings Ordered By: ABIGAIL MANDEL Interpreted By: Melvin Saldana MD, 10/09/2024 1:14 PM Narrative 10/09/2024 1:14 PM CDT [facility] [address] [address] SINGLE VIEW OF THE CHEST Clinical history: Congestion Comparison: October 08, 2024 A single view of the chest demonstrates the cardiac silhouette to be normal in size and appears stable. The pulmonary vasculature appears normal. The Lungs are clear. No consolidations or effusions are seen. Procedure Note Mlevin Saldana MD - 10/09/2024 [facility] [address] [place] [address] SINGLE VIEW OF THE CHEST Clinical history: Congestion Comparison: October 08, 2024 A single view of the chest demonstrates the cardiac silhouette to benormal in size and appears stable. The pulmonary vasculature appearsnormal. The Lungs are clear. No consolidations or effusions are seen. IMPRESSION: No acute findings Ordered By: ABIGAIL MANDEL Interpreted By: Melvin Saldana MD, 10/09/2024 1:14 PM Abigail Mandel CERTIFIED SCRUB TECH GENERAL IMAGING Final Result * ECG 12 lead (10/09/2024 3:54 AM CDT) 10/09/2024 3:54 AM CDT Narrative [facility] RAD - 10/12/2024 7:52 AM CDT [facility] Test Date: 2024-10-09 Pat Name: ROSEMARIE FONSECASON Department: 85 Room: [facility] Gender: Female Technology Auditor: : 1955 Requested By: MACY FLOYD Order Number: [id number] Reading MD: Abrahan Boone Measurements Intervals [place] Rate: 87 P: 72 ND: 176 QRS: 27 QRSD: 105 T: 41 QT: 370 QTc: 446 Interpretive Statements SINUS RHYTHM No previous ECG available for comparison Procedure Note Abrahan Boone MD - 10/12/2024 [facility] Test Date: 2024-10-09 Pat Name: ROSEMARIE CHUNG Department: 85 Room: 1231 Gender: Female Technology Auditor: : 1955 Requested By: MACY FLOYD Order Number: [id number] Reading MD: Abrahan Boone Measurements Intervals [place] Rate: 87 P: 72 ND: 176 QRS: 27 QRSD: 105 T: 41 QT: 370 QTc: 446 Interpretive Statements SINUS RHYTHM No previous ECG available for comparison us Macy Floyd MD ECG ORDERABLES Final Result [facility] ([facility]) RAD * CT ABD+PEL W CON (10/08/2024 9:25 PM CDT) Anatomical Region Laterality Modality Abdomen Computed Tomogra phy 10/08/2024 9:44 PM CDT Impressions 10/08/2024 9:57 PM CDT IMPRESSION: 1. Abnormally distended gallbladder with no associated abnormality. This is a nonspecific finding that can be associated with fasting, diabetes, hepatitis, or functional disorder. 2. Nonspecific small bowel findings. There is less small bowel gas than on the prior study. 3. Unchanged findings posteriorly at L4. Referred By: Interpreted By: Hunter Lobo MD, 10/08/2024 9:44 PM Narrative 10/08/2024 9:57 PM CDT [facility] [address] [place] [address] EXAM: CT ABD+PEL W CON DATE: 10/08/2024 COMPARISON: 02/27/2024 INDICATION: Nausea, vomiting, diarrhea, and chills for 2 days. TECHNIQUE: Postcontrast imaging with 70 cc intravenous Isovue-370 right antecubital fossa. A dose lowering technique was used for this procedure, which may include, but is not limited to, dose reduction technique, automated exposure control, iterative reconstruction, ALARA (As Low As Reasonably Achievable), or Image Gently techniques. FINDINGS: Emphysema. Clear lungs. Streak artifact from extensive thoracolumbar spinal fusion. Diffuse fatty infiltration of the liver. Uniform enhancement of the liver, spleen, adrenal glands, and atrophic pancreas. The gallbladder is abnormally distended. Diameter is about 4.2 cm and length is at least 8 cm. No identifiable stones, wall thickening, or adjacent inflammation. Normal enhancement of the kidneys. Ureters are nonvisualized, but no obstruction demonstrated. Normal urinary bladder. The uterus is small or surgically absent. Most of the large bowel is empty. Typical appearance of diarrhea is not present. The small bowel has a variable appearance. Some segments are decompressed while others are gas distended or contained nonspecific air-fluid levels. There is no wall thickening or small bowel obstruction. Less small bowel gas than on the prior exam. Elongated sigmoid colon is normal variation. Unchanged appearance and no evidence of volvulus. Normal appendix. Stomach is poorly distended and grossly normal. Lumbar scoliosis. Multilevel degenerative disc disease in the lumbar spine. At L4 posteriorly, there is a large hypodense collection between the remaining components of the posterior elements. This measures about 2.6 x 4.1 cm. With streak artifact, density measurements are between 13 and 20. This likely represents mildly complex fluid. Unchanged appearance. Potential seroma. Cannot evaluate for possible communication with the thecal sac with this exam. Procedure Note Hunter Lobo MD - 10/08/2024 [facility] [address] [facility] [address] [place] [phone] EXAM: CT ABD+PEL W CON DATE: 10/08/2024 COMPARISON: 02/27/2024 INDICATION: Nausea, vomiting, diarrhea, and chills for 2 days. TECHNIQUE: Postcontrast imaging with 70 cc intravenous Isovue-370 rightantecubital fossa. A dose lowering technique was used for this procedure, which may include,but is not limited to, dose reduction technique, automated exposurecontrol, iterative reconstruction, ALARA (As Low As ReasonablyAchievable), or Image Gently techniques. FINDINGS: Emphysema. Clear lungs. Streak artifact from extensivethoracolumbar spinal fusion. Diffuse fatty infiltration of the liver. Uniform enhancement of theliver, spleen, adrenal glands, and atrophic pancreas. The gallbladder isabnormally distended. Diameter is about 4.2 cm and length is at least 8cm. No identifiable stones, wall thickening, or adjacent inflammation. Normal enhancement of the kidneys. Ureters are nonvisualized, but noobstruction demonstrated. Normal urinary bladder. The uterus is small orsurgically absent. Most of the large bowel is empty. Typical appearance of diarrhea is notpresent. The small bowel has a variable appearance. Some segments aredecompressed while others are gas distended or contained nonspecificair-fluid levels. There is no wall thickening or small bowel obstruction.Less small bowel gas than on the prior exam. Elongated sigmoid colon isnormal variation. Unchanged appearance and no evidence of volvulus.Normal appendix. Stomach is poorly distended and grossly normal. Lumbar scoliosis. Multilevel degenerative disc disease in the lumbarspine. At L4 posteriorly, there is a large hypodense collection betweenthe remaining components of the posterior elements. This measures about2.6 x 4.1 cm. With streak artifact, density measurements are between 13and 20. This likely represents mildly complex fluid. Unchangedappearance. Potential seroma. Cannot evaluate for possible communicationwith the thecal sac with this exam. IMPRESSION: 1. Abnormally distended gallbladder with no associated abnormality. Thisis a nonspecific finding that can be associated with fasting, diabetes,hepatitis, or functional disorder. 2. Nonspecific small bowel findings. There is less small bowel gas thanon the prior study. 3. Unchanged findings posteriorly at L4. Referred By: Interpreted By: Hunter Lobo MD, 10/08/2024 9:44 PM Miguel A Brock DO CT Final Result * XR CHEST PA+LAT (10/08/2024 7:39 PM CDT) Anatomical Region Laterality Modality Chest Radiographic Paige ging 10/08/2024 7:40 PM CDT Impressions 10/08/2024 7:41 PM CDT IMPRESSION: No acute cardiopulmonary process. Referred By: Interpreted By: Mikel Campbell MD, 10/08/2024 7:40 PM Narrative 10/08/2024 7:41 PM CDT [facility] [address] [place] [address] INDICATION: Cough COMPARISON: Chest radiograph, 27 Feb 2024 TECHNIQUE: Single PA and lateral images of the chest FINDINGS: No pneumothorax, pleural effusion, or focal airspace consolidation. Pulmonary vasculature and cardiomediastinal silhouette within normal limits. No acute osseous abnormality. Right reverse shoulder arthroplasty. Partially visualized thoracolumbar fusion construct. Procedure Note Mikel Campbell MD - 10/08/2024 [place] [id number] [place] [address] INDICATION: Cough COMPARISON: Chest radiograph, 27 Feb 2024 TECHNIQUE: Single PA and lateral images of the chest FINDINGS: No pneumothorax, pleural effusion, or focal airspace consolidation.Pulmonary vasculature and cardiomediastinal silhouette within normallimits. No acute osseous abnormality. Right reverse shoulder arthroplasty.Partially visualized thoracolumbar fusion construct. IMPRESSION: No acute cardiopulmonary process. Referred By: Interpreted By: Mikel Campbell MD, 10/08/2024 7:40 PM Miguel A Brock DO GENERAL IMAGING Final Result * CORONAVIRUS (COVID-19) MOLECULAR (10/08/2024 7:28 PM CDT) CORONAVIRUS SARS COV 2 RNA NEGATIVE NEGATIVE 10/08/2024 7:55 PM CDT [facility] Comment: NEGATIVE RESULTS DO NOT RULE OUT COVID 19 AND SHOULD NOT BE USED THE SOLE BASIS FOR TREATMENT OR PATIENT MANAGEMENT DECISIONS, INCLUDING INFECTION CONTROL DECISIONS. NEGATIVE RESULTS SHOULD BE CONSIDERED IN THE CONTEXT OF A PATIENT'S RECENT EXPOSURES, HISTORY AND THE PRESENCE OF CLINICAL SIGNS AND SYMPTOMS CONSISTENT WITH COVID 19. THE ID NOW COVID-19 2.0 TEST HAS BEEN AUTHORIZED BY THE FDA UNDER EAU FOR USE BY AUTHORIZED LABORATORIES. PERFORMED BY NUCLEIC ACID AMPLIFICATION FOR MOLECULAR QUALITATIVE DETECTION OF SARS-COV-2. SPECIMEN TYPE NASAL 10/08/2024 7:27 PM CDT [facility] NASOPHARYNGEAL SWAB / Unknown 10/08/2024 7:28 PM CDT Miguel A Brock MICROBIOLOGY - GENERAL ORDERAB LES Final Result [facility] [address] [place] [address], [place] [phone] * INFLUENZA A & B (10/08/2024 7:28 PM CDT) SPECIMEN TYPE NASOPHARYNX 10/08/2024 7:56 PM CDT [facility] INFLUENZA A NEGATIVE NEGATIVE 10/08/2024 7:56 PM CDT [facility] INFLUENZA B NEGATIVE NEGATIVE 10/08/2024 7:56 PM CDT [facility] NASAL STRUCTURE / Unknown 10/08/2024 7:28 PM CDT Miguel A Brock DO MICROBIOLOGY - GENERAL ORDERAB LES Final Result Performing Organization Address [facility] de Phone Number [facility] [address] [place] [address], [place] [phone] from Last 3 Months Insurance [employer]IC[employer] Advance Directives Documents on File Type Date Recorded Patient Focus Puller Expl anation Advance Directives and Living Will 03/02/2024 10:28 AM 02/28/2024 POA FOR HEALTH CARE * Full Code (Latest Code Status on File) Date Activated Date Inactivated Comments 11/22/2024 10:20 PM 11/24/2024 12:20 PM * Full Code Date Activated Date Inactivated Comments 10/09/2024 1:02 PM 10/10/2024 3:38 PM * Full Code Date Activated Date Inactivated Comments 02/27/2024 10:27 PM 03/01/2024 3:20 PM Care Teams Echo Tech Relationship Specialty Start Date End Date Carlos Alcala DO 0 [facility] [address] [place] [address] PCP - General INTERNAL MEDICINE 02/27/24 Cody Andres NP [address] [facility] [address] [place] [address] NURSE PRACTITIONER 11/22/24
--- OUTSIDE RECORDS SUMMARY | 2024-12-28 09:41 | XMS_ITS | Clinical Summary ---
Author Organization [facility] Address [address] [place] [id number] Phone Care Team Providers Care Demand Planner Name Role Phone Carlos Alcala DO Primary Care Provider [phone] Allergies No known active allergies Medications Anoro Ellipta 62.5-25 MCG/INH aerosol powder INHALE 1 PUFF BY MOUTH DAILY 2 Active pantoprazole (PROTONIX) 40 MG EC tablet Take 40 mg by mouth 1 (one) time each day 2 Active Multiple Vitamins-Minera ls (Multi Complete/Iron) tablet 1 tablet daily Activ e metoprolol succinate XL (TOPROL-XL) 25 MG 24 hr tablet 1 (one) time each day at the same time Active metaxalone (SKELAXIN) 800 MG tablet 2 Active magnesium gluconate (MAGONATE) 500 MG tablet Take 250 mg by mouth daily Active LORazepam (ATIVAN) 0.5 MG tablet Take 0.5 mg by mouth 3 (three) times a day if needed for anxiety 2 Active ipratropium-alb uterol (DUO-NEB) 0.5-2.5 mg/3 mL nebulizer solution USE 3 ML VIA NEBULIZER FOUR TIMES DAILY NEEDED FOR SHORTNESS OF BREATH 2 Active hyoscyamine (ANASPAZ) 0.125 MG tablet TAKE 1 TABLET BY MOUTH EVERY 4 HOURS NEEDED FOR CRAMPS . TAKE 1 TABLET BY MOUTH THREE TIMES DAILY NEEDED FOR NAUSEA 2 Active HYDROcodone-hailey taminophen (NORCO) 5-325 MG per tablet TAKE 1 TABLET BY MOUTH EVERY 8-12 HOURS NEEDED 2 Active EPINEPHrine (EPIPEN) 0.3 MG/0.3ML injection syringe INJECT 0.3MG EVERY 5-15 MINUTES NEEDED FOR ANAPHYLAXIS DO NOT EXCEED 3 DOSES 2 Active estradiol (ESTRACE) 1 MG tablet Take 1 mg by mouth 1 (one) time each day 2 Active diclofenac (VOLTAREN) 75 MG EC tablet Take 75 mg by mouth 2 (two) times a day 2 Active Cholecalciferol 50 MCG (2000 UT) capsule Take 2,000 Units by mouth daily 9 Active atorvastatin (LIPITOR) 20 MG tablet Take 20 mg by mouth every night 2 Active ascorbic acid (VITAMIN C) 500 mg chewable tablet Chew 1 tablet 2 (two) times a day 9 Active albuterol 0.63 MG/3ML nebulizer solution Inhale 0.63 mg Activ e sodium chloride 1 g tablet Take 1 tablet (1 g total) by mouth 1 (one) time each day Only if you take a furosemide 30 tablet 11 2 Active furosemide (LASIX) 20 MG tablet Take 1 tablet (20 mg total) by mouth 1 (one) time each day in the morning 30 tablet 11 2 Active Active Problems Problem Noted Date Diagnosed Date Polyarthritis 02/07/2022 Hyposmolality and/or hyponatremia 02/07/2022 Acute kidney failure 02/07/2022 Chronic anemia 02/02/2022 Social History Tobacco Use Types Packs/Day Years Used Date Smoking Tobacco: Former Smokeless Tobacco: Never Alcohol Use Standard Drinks/Week Comments Yes 7 (1 standard drink = 0.6 oz pur e alcohol) Comments Unknown Sex and Gender Information Value Date Recorded Sex Assigned at Not on file Legal Sex Female 8:36 AM MDT Gender Identity Not on file Sexual Orientation Not on file Last Filed Vital Signs Vital Sign Reading Time Taken Comments Blood Pressure 108/80 02/07/2022 11:36 AM CDT Pulse 72 02/07/2022 11:36 AM CDT Temperature 35.6 C (96.1 F) 02/07/2022 11:36 AM CDT Respiratory Rate - - Oxygen Saturation - - Inhaled Oxygen Concentration - - Weight 61.2 kg (135 lb) 02/07/2022 11:36 AM CDT Height 167.6 cm (5' 6) 02/07/2022 11:36 AM CDT Body Mass Index 21.79 02/07/2022 11:36 AM CDT Plan of Treatment Health Maintenance Due Date Last Done Comments Pneumococcal PPSV23/PCV13 65 + Years / Low and Medium Risk (1 of 2 - PCV) 2007 Influenza Vaccine (#1) [address] [place] [address] Care Teams Demand Planner Relationship Specialty Start Date End Date Carlos Alcala DO [address] [place] [address] PCP - General Internal Medicine 01/15/22
--- OUTSIDE RECORDS SUMMARY | 2024-12-28 09:41 | XMS_ITS | Encounter Summary ---
Author Organization [facility] Address [address] [facility] [place] [address] Care Team Providers Care Field Return Repairer Name Role Phone Carlos Alcala DO Primary Care Provider Encounter Details Date Type Department Care Team (Late st Contact Info) Description 10/19/2020 Lab Requisition [facility] [address] [facility] [place] [address] Billy Mccullough MD [address] [place] [address] Social History Tobacco Use Types Packs/Day Years [...] on file documented as of this encounter Plan of Treatment Not on file documented as of this encounter Procedures Procedure Name Priority Date/Time Associated Diagnosis Comments DERMATOPATHOLOGY Routine 10/18/2020 12:0 0 AM CDT documented in this encounter Results * DERMATOPATHOLOGY (10/18/2020 12:00 AM CDT) Case Report Dermatopathology Report Case: [id number] Authorizing Provider: Billy Mccullough MD Collected: 10/18/2020 12:00 AM Ordering Location: [facility] DermPath Lab Received: 10/19/2020 01:45 PM Pathologist: Precious Brown MD Specimen: Skin, right distal pretib 5:17 PM CDT DERMATOPATHOLOGY LABORATORY Final Diagnosis Specimen A. SKIN, right distal pretib: BENIGN VERRUCOUS KERATOSIS, INFLAMED (L82.1) STASIS DERMATITIS (L30.8) 5:17 PM CDT DERMATOPATHOLOGY LABORATORY at 1717 CDT Clinical History R/O SCC, other. 5:17 PM CDT DERMATOPATHOLOGY LABORATORY Gross Description Specimen A: Received is one formalin filled container labeled with the patient's name and designated right distal pretib. The specimen consists of a shave biopsy measuring [id number]. Jar 0. 5:17 PM CDT DERMATOPATHOLOGY LABORATORY Microscopic Description Specimen A. SKIN, right distal pretib: Sections show hyperkeratosis, papillomatosis, hypergranulosis, and acanthosis. Inflammatory cells are present within the dermis. These histological findings can be seen in a verruca vulgaris or a seborrheic keratosis. There is focal spongiosis. The dermis shows a sparse, perivascular lymphocytic infiltrate surrounding dilated, thick-walled vessels, which are increased in number. 5:17 PM CDT DERMATOPATHOLOGY LABORATORY Disclaimer An external and internal positive and negative controls are appropriate for the histochemical, immunohistochemical and immunofluorescence stain(s) in this case (if any), except where stated explicitly. The performance characteristics of the stain(s) cited in this report were developed and its performance characteristic determined by the Dermatopathology Laboratory at [facility], directed by Dr. James Rasmussen. These tests need not be, and therefore are not, approved by the [place] Food and Drug Administration. The tests are used for clinical purposes. Billing Codes Specimen Charges Stain Charges 71858 1 5:17 PM CDT DERMATOPATHOLOGY LABORATORY Embedded Images 5:17 PM CDT DERMATOPATHOLOGY LABORATORY Pathology/Cytolog y TISSUE SPECIMEN FROM SKIN / Unknown 10/18/2020 10/19/2020 1:45 PM CDT us Billy Mccullough MD LAB - PATHOLOGY/CYTOLOGY ORD ERABLES Final Result DERMATOPATHOLOGY LABORATORY [facility] - Department of Dermatology [facility] Specialized Medicine [address] [place] [address], [address] [phone] documented in this encounter Visit Diagnoses Not on filedocumented in this encounter Care Teams Field Return Repairer Relationship Specialty Start Date End Date Carlos Alcala DO [address] [place] [address] PCP - General 01/10/22 documented as of this encounter
[2024-12-28 10:10] LABS: Hematocrit 32.7 % (37.0-47.0); Hemoglobin 11.4 g/dL (12.0-15.0); Immature Granulocyte Percent A 0.5 % (0-0.5); Lymphocytes Absolute Auto 0.73 K/mm3 (0.9-3.2); Mean Corpuscular HGB Conc 34.9 g/dl (32-36); Mean Corpuscular Hemoglobin 34.8 pg (26-34); Mean Corpuscular Volume 99.7 fl (80-100); Nucleated Red Blood Cells Absolute Auto 0.000 K/mm3 (0.0-0.012); Nucleated Red Blood Cells Perc 0.0 % (0.0-0.2); Platelet Count Result 300 k/mm3 (150-375); Red Blood Count 3.28 M/mm3 (4.2-5.4); White Blood Count 6.2 K/mm3 (4.5-10.0)
[2024-12-28 11:27] LABS: Alanine Aminotransferase 19 U/L (6-35); Albumin Level 4.4 g/dL (3.5-5.1); Alkaline Phosphatase 134 U/L (38-126); Anion Gap 12 mmol/L (4-12); Aspartate Amino Transferase 66 U/L (14-36); Bilirubin,Total 1.0 mg/dL (0.2-1.3); Blood Urea Nitrogen 8 mg/dL (7-17); Calcium 9.2 mg/dL (8.4-10.2); Carbon Dioxide 22 mmol/L (22-30); Chloride 100 mmol/L (98-107); Estimated Glomerular Filt Rate > 60; Glucose 83 mg/dL (65-110); Iron 164 ug/dL (37-170); Potassium 4.6 mmol/L (3.4-5.0); Sodium 134 mmol/L (137-145); Total Protein 7.9 g/dL (6.3-8.2)
[2024-12-28 11:38] LABS: Percent Iron Saturation 52 % (20-50)
[2024-12-28 12:09] LABS: Ferritin 36.70 ng/mL (11.1-264)
[2024-12-28 12:51] LABS: Vitamin B12 > 1000.0 pg/mL (239-931)
== END 2024-12-28 09:20 | disposition home or self-care (01) ==
PROVIDERS: PCP Nurse Practitioner; Visit Provider Internal Medicine Hematology & Oncology
DX: D64.9 Anemia, unspecified (principal)
CPT/HCPCS: 36415; 80053; 82607; 82728; 82746; 83540; 83550; 85025

== ENCOUNTER 2024-12-28 10:37 | Emergency (ER) | payer MEDICARE, OTHER, SELFPAY ==
--- NOTE | 2024-12-28 10:38 | ED.SKABFB ---
HPI - Skin/Abscess/Foreign Bdy General Chief complaint: Wound/Laceration Stated complaint: leg injury Time Seen by Provider: 12/28/24 10:41 Source: patient and RN notes reviewed Mode of arrival: ambulatory Limitations: dementia History of Present Illness HPI narrative: 69-year-old female presents with concern of for redness, swelling to her right lower leg. She reports about 10 days ago she was on vacation when she cut the front of her legs on a full out injury. She reports she sustained a skin tear. Since then the area has become more red, swollen, tender. She denies fever, body aches, chills, sweats. She has been cleaning with soap and water. MD complaint: other (Redness) Related Data Home Medications ?Medication ?Instructions ?Recorded ?Confirmed ?Last Taken ?Type estradiol 1 mg tablet 1 mg PO DAILY 11/25/19 12/08/24 12/25/21 21:00 History ascorbic acid (vitamin C) 500 mg 1,000 mg PO DAILY 12/26/21 12/08/24 12/26/21 08:00 History tablet cholecalciferol (vitamin D3) 50 50 mcg PO DAILY 05/22/22 12/08/24 Unknown History mcg (2,000 unit) tablet magnesium 250 mg tablet 250 mg PO DAILY 05/22/22 12/08/24 Unknown History hydrocodone 5 mg-acetaminophen 325 1 tablet PO Q8H PRN 12/26/23 12/08/24 Unknown History mg tablet Allergies Allergy/AdvReac Type Severity Reaction Status Date / Time chlorhexidine Allergy Intermediate Itching Verified 12/28/24 10:50 Review of Systems Review of Systems: CONSTITUTIONAL: Denies malaise, chills, sweats, or fever. EYES: Denies redness, or discharge. ENT: Denies rhinorrhea, congestion, swollen lips, swollen tongue CARDIOVASCULAR: Denies chest pain, palpitations, or edema. RESPIRATORY: Denies cough or dyspnea. GASTROINTESTINAL: Denies abdominal pain, nausea, vomiting SKIN: Reports redness, swelling, tenderness surrounding a skin tear of the right lower leg. Denies purulent drainage, vesicles, bullae, numbness, pain beyond proportion MUSCULOSKELETAL: Denies joint pain or myalgia. NEUROLOGIC: Denies headache. All systems reviewed & are unremarkable except as noted in HPI and below PMFSH Past Medical History Medical History BMI 36.0-36.9,adult Osteoarthritis COPD with emphysema Anxiety Degenerative disc disease Gastroesophageal reflux disease Hyperlipidemia Vitamin D deficiency, unspecified Fibromyalgia Gastroesophageal reflux disease without esophagitis Surgical History Surgical History History of fusion of thoracic spine July 2023 -anterior and posterior thoracolumbar reconstruction with fusion from T10 to the sacrum and ilium at [facility] History of tubal ligation History of section History of kyphoplasty History of colonoscopy with polypectomy History of cardiac catheterization (02/2021) Right coronary dominant circulation with no evidence of coronary disease. History of hysterectomy Status post excision of Hernández's neuroma History of repair of right rotator cuff Family History Family History Father Family history of rheumatoid arthritis Cancer Sibling Pancreatic cancer Arthritis Family history of chronic obstructive pulmonary disease Gout Mother Cancer Emphysema of lung Daughter Asthma Social History Social History (Updated 12/08/24 @ 12:38 by ASHA Altamirano) Social History: Surrogate decision maker: Israel Chung, spouse. Code status: Full code. Smoking packs per day: 1.5 Smoking cigarettes per day: 30.0 Years smoked: 25 Smoking pack-years: 37.50 Smoking status: Former smoker Tobacco type: cigarettes Second hand tobacco smoke exposure: Yes Smoking end date: 07/22/04 Alcohol intake: current Drinks per week: 4 Substance use: current Substance use type: painkillers and prescription drug Other substance usage details: CBD oil-for sleep. Do You Feel Safe in your Home?: Yes Lack of Transportation: No Lack of Food: Never True Current Housing: I Have Housing Concerned About Future Housing: No Difficulty Paying Gas/Electric Bills: No Difficulty Paying for Meds: No Currently Unemployed: No Education: Associate Degree Difficulty w/ Childcare or Family Care: No Living arrangements: with family Additional living arrangements comments: The patient lives in [place] with her . 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 Gender identity (if verbalized by the patient): Female Spiritual care concerns: No Comments At time of signature, agree with nursing past medical, surgical, social and family history. There is no relevant family history pertinent to the presenting complaint Exam Narrative: GENERAL: Well-appearing, well-nourished, and in no acute distress. HEAD: Normocephalic, atraumatic. EYES: PERRLA, conjunctivae clear ENT: Mucous membranes moist. NECK: Supple. No lymphadenopathy CHEST: Clear to auscultation. No respiratory distress. HEART: Regular rate and rhythm. SKIN: Warm, dry. Erythema, induration, tenderness, warmth with sharp margins noted to the anterior right lower leg surrounded by a scabbed skin tear. No vesicles, bullae, necrosis, ecchymosis, crepitus noted. NEURO: Alert and oriented x3. PSYCH: Normal mood and affect Course Course Emergency Course: Patient is aware of diagnosis, understands and agrees to treatment plan. Anticipatory guidance given. Patient agrees to follow-up as directed and is aware of reasons to seek care at the emergency department. Portions of this record may have been created with voice recognition software Level of Care: Express Care Visit Vital Signs Vital signs: Reviewed. MDM - Skin/Abscess/Foreign Bdy MDM Narrative Medical decision making narrative: I evaluated this in the express care. History is obtained from patient who is an independent historian and physical exam was performed.? Available medical records were reviewed. ? Exam findings and relevant testing show no acute concerns or changes; patient is non-toxic appearing and is in no distress. Does not appear at this time to be erythema multiforme, bullous, SJS, TEN; no evidence at this time to suggest RMSF, NSTI, endocarditis or Lyme disease; patient looks well, nontoxic and is tolerating oral intake; no neurologic signs or symptoms; no headache, photophobia or neck pain; afebrile.? Patient does not have history of of penetrating trauma, laceration, blunt trauma, recent surgery, immunosuppression, malignancy, obesity, alcoholism, corticosteroid use.? Discussed the importance of follow-up, patient agrees; question, cellulitis versus necrotizing soft tissue infection versus abscess.?? Patient is appropriate for outpatient treatment and follow-up. Critical Care Time Critical Care Time Critical Care Time: No Discharge Plan Discharge Clinical Impression: Cellulitis Patient Disposition: Home Condition: Stable Instructions: Antibiotic Form, Cellulitis (ED) Additional Instructions: Please follow up with your Primary Care Doctor within 48-72 hours - call for an appointment. Rest and elevate affected area; apply moist heat 3-4 times daily for 10-15 minutes. Take Motrin 600mg every 8 hours with food for pain. Please take Antibiotics as directed. If you experience any worsening redness, swelling, streaking (red lines), fever or chills please go to the ER Patient Language: Polish Prescriptions: New cephalexin 500 mg capsule 500 mg PO QID 10 Days Qty: 40 0RF No Action ascorbic acid (vitamin C) 500 mg Tablet 1,000 mg PO DAILY albuterol sulfate 90 mcg/actuation HFA aerosol inhaler 2 puff inhalation Q4H PRN (Reason: shortness of breath or wheezing) Qty: 1 5RF hydrocodone-acetaminophen 5-325 mg tablet 1 tablet PO Q8H PRN triamcinolone acetonide 0.1 % cream 1 applic topical TID PRN (Reason: rash) Qty: 453.6 1RF estradiol 1 mg Tablet 1 mg PO DAILY (DME) nebulizer and compressor Device See Rx Instructions .Route Qty: 1 0RF Rx Instructions: As directed aspirin 81 mg Tablet,Delayed Release (Dr/Ec) 81 mg PO QAM 30 Days Qty: 30 0RF magnesium 250 mg Tablet 250 mg PO DAILY cholecalciferol (vitamin D3) 50 mcg (2,000 unit) Tablet 50 mcg PO DAILY atorvastatin 20 mg tablet 20 mg PO QHS Qty: 90 2RF ipratropium-albuterol 0.5 mg-3 mg(2.5 mg base)/3 mL solution for nebulization 3 ml inhalation Q6H PRN (Reason: shortness of breath or wheezing) Qty: 360 5RF potassium chloride [Klor-Con M20] 20 mEq tablet,ER particles/crystals 20 meq PO DAILY Qty: 30 12RF sodium chloride 1,000 mg tablet,soluble 1,000 mg PO DAILY Qty: 90 2RF methocarbamol 750 mg tablet See Rx Instructions .ROUTE .COMPLEX Qty: 270 1RF Dose Instruction: TAKE 1 TABLET BY MOUTH THREE TIMES DAILY NEEDED FOR MUSCLE SPASM. Rx Instructions: TAKE 1 TABLET BY MOUTH THREE TIMES DAILY NEEDED FOR MUSCLE SPASM. pantoprazole 40 mg tablet,delayed release (DR/EC) 40 mg PO QAM Qty: 90 3RF furosemide 20 mg tablet See Rx Instructions .ROUTE .COMPLEX Qty: 60 12RF Dose Instruction: TAKE 1 TABLET BY MOUTH TWICE DAILY Rx Instructions: TAKE 1 TABLET BY MOUTH TWICE DAILY ondansetron HCl 4 mg tablet 4 mg PO Q6H PRN (Reason: nausea and vomiting) Qty: 40 1RF gabapentin 100 mg capsule 100 mg PO TID Qty: 90 5RF lorazepam 0.5 mg tablet 0.5 mg PO TID PRN (Reason: anxiety) Qty: 90 0RF hyoscyamine sulfate 0.125 mg tablet See Rx Instructions .ROUTE .COMPLEX Qty: 90 3RF Dose Instruction: TAKE 1 TABLET BY MOUTH EVERY 4 HOURS NEEDED FOR CRAMPS Rx Instructions: TAKE 1 TABLET BY MOUTH EVERY 4 HOURS NEEDED FOR CRAMPS Follow-up/Referrals: Cody Andres APRN [Primary Care Provider] - Time of Disposition: 11:05
[2024-12-28 10:50] VITALS: BP 143/67; PULSE 90; RESP 16; TEMP 36.9; O2SAT 99
--- OUTSIDE RECORDS SUMMARY | 2024-12-28 11:02 | XMS_ITS | Clinical Summary ---
Author Organization [facility] Address [address] [place] [id number] Care Team Providers Care Signal Operator Linguist Name Role Phone Den Erickson MD Unavailable [phone] Alexandrea Sunshine Unavailable [phone] Carlos Alcala DO Primary Care Provider [phone] Allergies Active Allergy Reactions Criticality Noted Date [...] 1 tablet (20 mEq total) by mouth can labeler before breakfast 3 Active LORazepam (ATIVAN) 0.5 [...] 07/12/2023 Assessment & Plan (07/14/2023 11:54 AM GMAT INSTRUCTOR): - EKG and tele showing new onset [...] right rotator cuff 10/14/19 20 Discharge from [facility] 04/14/2014 Resolved Problems Problem Noted Date Diagnosed Date Resolved Date Traumatic rotator cuff tear, right, initial encounter 06/08/2019 10/14/2019 Overview (06/08/2019): Added automatically from request for surgery [id number] Arthritis of right acromioclavicular joint 06/08/2019 10/14/2019 Overview (06/08/2019): Added automatically from request for surgery [id number] 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 06/08/2019 10/14/2019 Overview (06/08/2019): Added automatically from request for surgery [id number] Impingement syndrome of right shoulder 06/08/2019 10/14/2019 Overview (06/08/2019): Added automatically from request for surgery [id number] Immunizations Immunization Administration Dates Next Due Influenza, [...] on file Legal Sex Female 12:44 AM GMAT INSTRUCTOR Gender Identity Not on file Sexual Orientation Not on file Obstetrics History Last Filed Vital Signs Vital Sign Reading Time Taken Comments Blood Pressure 162/74 06/16/2024 1:28 PM GMAT INSTRUCTOR Pulse 96 06/16/2024 1:28 PM GMAT INSTRUCTOR Temperature 36.6 C (97.8 F) 07/19/2023 11:29 AM GMAT INSTRUCTOR Respiratory Rate 15 07/20/2023 8:30 AM GMAT INSTRUCTOR Oxygen Saturation 98% 07/20/2023 8:30 AM GMAT INSTRUCTOR Inhaled Oxygen Concentration - - Weight 62.1 kg (137 lb) 06/16/2024 1:28 PM GMAT INSTRUCTOR Height 160 cm (5' 3) 06/16/2024 1:28 PM GMAT INSTRUCTOR Body Mass Index 24.27 06/16/2024 1:28 PM GMAT INSTRUCTOR Plan of Treatment Health Maintenance Due Date [...] 03/27/2023, 03/27/2023 Medical Devices Implanted Type Area Meat Manager Device Identifier Shelf Expiration Date Model / Serial / Lot Arthrex Inc Ar-3633 Arthrex Fibertak Tape 3 Load Rotator Cuff Dexter Suture Sterile Latex Free - [id number] Implanted:Qty: 1 on 06/11/2019 by Den Erickson MD at [facility] Right: Shoulder Arthrex Inc 03/02/2024 AR-3633 / / [id number] Arthrex Inc Ar-2324bcc Swivelock C 4.75mm 19.1mm Closed Eyelet Vent Dexter Suture - [id number] Implanted:Qty: 1 on 06/11/2019 by Den Erickson MD at [facility] Right: Shoulder Ar[employer]rex Inc 04/02/2021 AR-2324BCC / / [id number] Arthrex Inc Arthrex Univers Revers Shoulder 7 Stem Humeral Sterile Ar-9501-07p - [id number] Implanted:Qty: 1 on 01/24/2023 by Den Erickson MD at [facility] Right: Shoulder Ar[employer]rex Inc [id number] 03/02/2027 AR-9501-07 P / / [id number] Arthrex Inc Baseplate 24mm 10 Deg Full Augment Oblique Mk-8119-5033 - [id number] Implanted:Qty: 1 on 01/24/2023 by Den Erickson MD at [facility] Right: Shoulder Ar[employer]rex Inc [id number] 10/01/2027 AR-9580-24 10 / / [id number] Arthrex Inc Component Glenoid Modular Post Reverse 20mm Ar-9582-20 - [id number] Implanted:Qty: 1 on 01/24/2023 by Den Erickson MD at [facility] Right: Shoulder Ar[employer]rex Inc [id number] 08/01/2027 AR-9582-20 / / [id number] Arthrex Inc 36mm 24 Baseplate Taper Sphere Glenoid Tm-1605-5161 - [id number] Implanted:Qty: 1 on 01/24/2023 by Den Erickson MD at [facility] Right: Shoulder Arthrex Inc [id number] 04/02/2026 AR-9564-24 36 / / [id number] Arthrex Inc 5.5mm 24mm Lock Modular Glenoid Screw Bone Ar-9563-24 - [id number] Implanted:Qty: 1 on 01/24/2023 by Den Erickson MD at [facility] Right: Shoulder Arthrex Inc [id number] 10/01/2027 AR-9563-24 / / [id number] Arthrex Inc 5.5mm 36mm Lock Peripheral Screw Bone Sterile Ar-9563-36 - [id number] Implanted:Qty: 1 on 01/24/2023 by Den Erickson MD at [facility] Right: Shoulder Arthrex Inc [id number] 08/01/2027 AR-9563-36 / / [id number] Arthrex Inc Insert Humeral Combo Reverse Poly Univers Revers +3x33mm Bh-4567-8650-3 - [id number] Implanted:Qty: 1 on 01/24/2023 by Den Erickson MD at [facility] Right: Shoulder Ar[employer]rex Inc [id number] 01/31/2027 AR-9503-33 36-3 / / [id number] Arthrex Inc Implant Suture Cup Humeral Reverse Right Univers Revers +2x33mm Titanium [id number] - [id number] Implanted:Qty: 1 on 01/24/2023 by Den Erickson MD at [facility] Right: Shoulder Arthrex Inc [id number] 04/02/2027 AR-9502F-3 3RCPC / / [id number] Allosource Crushed Fresh Frozen Cancellous 1-4mm Graft 15ml Bone 92715964 - [id number] Implanted:Qty: 1 on 07/09/2023 by Mulugeta Navarrete MD at [facility] Spine Lumbar Allosource 11/21/2027 [id number] / / [id number] Medtronic Inc Kit Graft Bone Sponge Xlg Infuse 8cc Granules [id number] - [id number] Implanted:Qty: 1 on 07/09/2023 by Mulugeta Navarrete MD at [facility] N/A: Spine Lumbar Medtronic Inc [id number] 12/01/2024 4495271 / / [id number] Viola Spine Graft Bone Filler Gel Bio Dbm 10cc 0273863 - [id number] Implanted:Qty: 1 on 07/09/2023 by Mulugeta Navarrete MD at [facility] N/A: Spine Lumbar [place] Spine [id number] 01/03/2026 6652772 / / [id number] Spineart [facility] Inc Screw Spn Pedicle Sld 5x25mm Sjt-Ls 50 25-S - [id number] Implanted:Qty: 1 on 07/09/2023 by Mulugeta Navarrete MD at [facility] N/A: Spine Lumbar SPINEART [employer] INC [id number] 12/07/2029 SJT-LS 50 25-S / / [id number] Spineart [employer] Inc Cage Secured Lumbar Anterior Small Lordosis 15deg 10 Mm Sca-Ls 15 10-S - [id number] Implanted:Qty: 1 on 07/09/2023 by Mulugeta Navarrete MD at [facility] N/A: Spine Lumbar [employer]INE[employer] INC 01/07/2027 SCA-LS 15 10-S / / [id number] Spineart [employer] Inc Screw Spn Pedicle Sld 5x25mm Sjt-Ls 50 25-S - [id number] Implanted:Qty: 1 on 07/09/2023 by Mulugeta Navarrete MD at [facility] N/A: Spine Lumbar [employer]INE[employer] INC [id number] 02/28/2031 SJT-LS 50 25-S / / [id number] Medtronic Inc Kit Graft Bone Sponge Xlg Infuse 8cc Granules 1809396 - [id number] Implanted:Qty: 2 on 07/11/2023 by Mulugeta Navarrete MD at [facility] N/A: Spine Thoracic Medtronic Inc 12/01/2024 1442506 / / [place] Spine Graft Bone Filler Gel Bio Dbm 10 5006176 - [id number] Implanted:Qty: 1 on 07/11/2023 by Mulugeta Navarrete MD at [facility] N/A: Spine Thoracic [place] Spine [id number] 11/19/2025 3040217 / / [id number] [place] Spine Graft Bone Filler Gel Bio Dbm 10cc 0484801 - [id number] Implanted:Qty: 1 on 07/11/2023 by Mulugeta Navarrete MD at [facility] N/A: Spine Thoracic [place] Spine [id number] 01/03/2026 7160099 / / [id number] [place] Spine Graft Bone Filler Gel Bio Dbm 10 2649641 - [id number] Implanted:Qty: 1 on 07/11/2023 by Mulugeta Navarrete MD at [facility] N/A: Spine Thoracic Viola Spine [id number] 01/03/2026 6076233 / / [id number] Viola Spine Graft Bone Filler Gel Bio Dbm 10 9023369 - [id number] Implanted:Qty: 1 on 07/11/2023 by Mulugeta Navarrete MD at [facility] N/A: Spine Thoracic [place] Spine [id number] 01/03/2026 1441842 / / [id number] Viola Spine Graft Bone Filler Gel Bio Dbm [facility] 5108922 - [id number] Implanted:Qty: 1 on 07/11/2023 by Mulugeta Navarrete MD at [facility] N/A: Spine Thoracic Viola Spine [id number] 01/06/2026 9930764 / / [id number] [place] Spine Graft Bone Filler Gel Bio Dbm 10 1059844 - [id number] Implanted:Qty: 1 on 07/11/2023 by Mulugeta Navarrete MD at [facility] N/A: Spine Thoracic Viola Spine [id number] 01/03/2026 2474048 / / [id number] Allosource Crushed Chip Frozen Graft 30ml Bone Cancellous 35195043 - [id number] Implanted:Qty: 1 on 07/11/2023 by Mulugeta Navarrete MD at [facility] N/A: Spine Thoracic Allosource 08/19/2027 81859432 / / [id number] Allosource Crushed Chip Frozen Graft 90ml Bone Cancellous 09880597 - [id number] Implanted:Qty: 1 on 07/11/2023 by Mulugeta Navarrete MD at [facility] N/A: Spine Thoracic Allosource 10/21/2027 30376551 / / [id number] [place] Spine Henderson Spine Screw Set Haney 2901-83447 - [id number] Implanted:Qty: 22 on 07/11/2023 by Mulugeta Navarrete MD at [facility] [place] Spine 2901-1 0001 / / [place] Spine Henderson Od5.5 Mm L45 Mm Polyaxial Spine Screw Bone 291136583 - [id number] Implanted:Qty: 5 on 07/11/2023 by Mulugeta Navarrete MD at [facility] Viola Spine 2911-0 5545 / / Viola Spine Henderson 6.5mm 30mm Polyaxial Spine Screw Bone Nonsterile 2911-50507 - [id number] Implanted:Qty: 2 on 07/11/2023 by Mulugeta Navarrete MD at [facility] Viola Spine 2911-0 6530 / / Viola Spine Henderson Od6.5 Mm L40 Mm Polyaxial Spine Screw Bone 291190795 - [id number] Implanted:Qty: 2 on 07/11/2023 by Mulugeta Navarrete MD at [facility] Viola Spine 2911-0 6540 / / Viola Spine Henderson Od6.5 Mm L45 Mm Polyaxial Spine Screw Bone 2911-08852 - [id number] Implanted:Qty: 6 on 07/11/2023 by Mulugeta Navarrete MD at [facility] [place] Spine 2911-0 6545 / / [place] Spine Henderson Od6.5 Mm L60 Mm Polyaxial Spine Screw Bone Green 291172142 - [id number] Implanted:Qty: 1 on 07/11/2023 by Mulugeta Navarrete MD at [facility] Viola Spine 2911-0 6560 / / [place] Spine Screw 8.5 Mm Polyaxial - 70 Mm 2911-61021 - [id number] Implanted:Qty: 1 on 07/11/2023 by Mulugeta Navarrete MD at [facility] [place] Spine 2911-0 8570 / / [place] Spine Od8.5 Mm L80 Mm Polyaxial Spine Screw Bone Green 2911-31289 - [id number] Implanted:Qty: 1 on 07/11/2023 by Mulugeta Navarrete MD at [facility] Viola Spine 2911-0 8580 / / Viola Spine Connector Spinal Lateral Thoracolumbar Open Adjustable Offset Henderson 25mm 2901-63194 - [id number] Implanted:Qty: 1 on 07/11/2023 by Mulugeta Navarrete MD at [facility] [place] Spine 2901-7 5525 / / [place] Spine Henderson 35mm Lateral Offset Spine Connector Oswald Nonsterile Latex 2901-11835 - [id number] Implanted:Qty: 3 on 07/11/2023 by Mulugeta Navarrete MD at [facility] Viola Spine 2901-7 5535 / / Viola Spine L500 Mm Hexagonal End Oswald Spinal Titanium Alloy 101-A22611 - [id number] Implanted:Qty: 2 on 07/11/2023 by Mulugeta Navarrete MD at [facility] [place] Spine 101-A5 5500 / / Procedures Procedure [...] Bone mineral density was performed on a [employer] Discovery Densitometer. Based on machine cross-calibration and [...] by the International Society of Clinical Densitometry. [id number] Mulugeta Navarrete MD Micha DXA PROCEDURES F inal Result from Last 3 Months or Most Recently Relevant to Health Maintenance Insurance MEDICARE RAILROAD [employer] [place] MEDICARE [place] [address] [address] MEDICARE RAILROAD [facility] Advance Directives For more information, please contact: [phone] Documents on File Type Date Recorded Patient Mink Rancher Expl anation ADVANCE DIRECTIVE 07/10/2023 3:54 PM POWER OF [employer]BST[employer] SETTER-MEDICAL ADVANCE DIRECTIVE 07/10/2023 3:30 PM POWER OF CURBSTONE SETTER-MEDICAL * Full Code (Latest Code Status on File) Date Activated Date Inactivated Comments 07/09/2023 2:12 PM 07/15/2023 8:53 PM * Full Code Date Activated Date Inactivated Comments 07/08/2023 12:52 PM 07/09/2023 5:13 AM * Full Code Date Activated Date Inactivated Comments 01/24/2023 2:35 PM 01/25/2023 7:43 PM Healthcare Agents on File Name Relationship Healthcare Agent [facility] Communication [place] Sheldon Spouse Health Care Agent Chungrobert Varghese Daughter [facility] Health C are Agent Care Teams Signal Operator Linguist Relationship Specialty Start Date End Date Carlos Alcala DO [address] [place] [address] PCP - General Internal Medicine 12/25/23 Den Erickson MD [address] [place] [address] Surgeon Orthopedic Surgery 06/11/19 Alexandrea Sunshine PA [address] [place] [address] Landscape Architect Orthopedic Surgery 01/25/23
--- OUTSIDE RECORDS SUMMARY | 2024-12-28 11:02 | XMS_ITS | Referral Summary ---
Author Organization [facility] Address [address] [place] [address] Care Team Providers Care Operational Assistant Name Role Phone Den Erickson MD Unavailable [phone] Alexandrea Sunshine Unavailable [phone] Carlos Alcala DO Primary Care Provider [phone] Allergies Active Allergy Reactions Criticality Noted Date [...] 1 tablet (20 mEq total) by mouth heavy lift rigger before breakfast 3 Active LORazepam (ATIVAN) 0.5 [...] 07/12/2023 Assessment & Plan (07/14/2023 11:54 AM SURGICAL TECHNICIAN): - EKG and tele showing new onset [...] right rotator cuff 10/14/19 20 Discharge from [facility] 04/14/2014 Resolved Problems Problem Noted Date Diagnosed Date Resolved Date Traumatic rotator cuff tear, right, initial encounter 06/08/2019 10/14/2019 Overview (06/08/2019): Added automatically from request for surgery [id number] Arthritis of right acromioclavicular joint 06/08/2019 10/14/2019 Overview (06/08/2019): Added automatically from request for surgery [id number] 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 06/08/2019 10/14/2019 Overview (06/08/2019): Added automatically from request for surgery [id number] Impingement syndrome of right shoulder 06/08/2019 10/14/2019 Overview (06/08/2019): Added automatically from request for surgery [id number] Immunizations Immunization Administration Dates Next Due Influenza, [...] on file Legal Sex Female 12:44 AM SURGICAL TECHNICIAN Gender Identity Not on file Sexual Orientation Not on file Last Filed Vital Signs Vital Sign Reading Time Taken Comments Blood Pressure 162/74 06/16/2024 1:28 PM SURGICAL TECHNICIAN Pulse 96 06/16/2024 1:28 PM SURGICAL TECHNICIAN Temperature 36.6 C (97.8 F) 07/19/2023 11:29 AM SURGICAL TECHNICIAN Respiratory Rate 15 07/20/2023 8:30 AM SURGICAL TECHNICIAN Oxygen Saturation 98% 07/20/2023 8:30 AM SURGICAL TECHNICIAN Inhaled Oxygen Concentration - - Weight 62.1 kg (137 lb) 06/16/2024 1:28 PM SURGICAL TECHNICIAN Height 160 cm (5' 3) 06/16/2024 1:28 PM SURGICAL TECHNICIAN Body Mass Index 24.27 06/16/2024 1:28 PM SURGICAL TECHNICIAN Plan of Treatment Not on file Medical Devices Implanted Type Area Conditioning Coach Device Identifier Shelf Expiration Date Model / Serial / Lot Arthrex Inc Ar-3633 Arthrex Fibertak Tape 3 Load Rotator Cuff [place] Suture Sterile Latex Free - [id number] Implanted:Qty: 1 on 06/11/2019 by Den Erickson MD at [facility] Right: Shoulder Arthrex Inc 03/02/2024 AR-3633 / / [id number] Arthrex Inc Ar-2324bcc Swivelock C 4.75mm 19.1mm Closed Eyelet Vent [place] Suture - [id number] Implanted:Qty: 1 on 06/11/2019 by Den Erickson MD at [facility] Right: Shoulder Arthrex Inc 04/02/2021 AR-2324BCC / / [id number] Arthrex Inc Arthrex Univers Revers Shoulder 7 Stem Humeral Sterile Ar-9501-07p - [id number] Implanted:Qty: 1 on 01/24/2023 by Den Erickson MD at [facility] Right: Shoulder Arthrex Inc [id number] 03/02/2027 AR-9501-07 P / / [id number] Arthrex Inc Baseplate 24mm 10 Deg Full Augment Oblique Yg-7700-6559 - [id number] Implanted:Qty: 1 on 01/24/2023 by Den Erickson MD at [facility] Right: Shoulder Arthrex Inc [id number] 10/01/2027 AR-9580-24 10 / / [id number] Arthrex Inc Component Glenoid Modular Post Reverse 20mm Ar-9582-20 - [id number] Implanted:Qty: 1 on 01/24/2023 by Den Erickson MD at [facility] Right: Shoulder Arthrex Inc [id number] 08/01/2027 AR-9582-20 / / [id number] Arthrex Inc 36mm 24 Baseplate Taper Sphere Glenoid Fe-0492-0078 - [id number] Implanted:Qty: 1 on 01/24/2023 by Den Erickson MD at [facility] Right: Shoulder Arthrex Inc [id number] 04/02/2026 AR-9564-24 36 / / [id number] Arthrex Inc 5.5mm 24mm Lock Modular Glenoid Screw Bone Ar-9563-24 - [id number] Implanted:Qty: 1 on 01/24/2023 by Den Erickson MD at [facility] Right: Shoulder Arthrex Inc [id number] 10/01/2027 AR-9563-24 / / [id number] Arthrex Inc 5.5mm 36mm Lock Peripheral Screw Bone Sterile Ar-9563-36 - [id number] Implanted:Qty: 1 on 01/24/2023 by Den Erickson MD at [facility] Right: Shoulder Arthrex Inc [id number] 08/01/2027 AR-9563-36 / / [id number] Arthrex Inc Insert Humeral Combo Reverse Poly Univers Revers +3x33mm Qh-1182-0805-3 - [id number] Implanted:Qty: 1 on 01/24/2023 by Den Erickson MD at [facility] Right: Shoulder Arthrex Inc [id number] 01/31/2027 AR-9503-33 36-3 / / [id number] Arthrex Inc Implant Suture Cup Humeral Reverse Right Univers Revers +2x33mm Titanium [id number] - [id number] Implanted:Qty: 1 on 01/24/2023 by Den Erickson MD at [facility] Right: Shoulder Arthrex Inc [id number] 04/02/2027 AR-9502F-3 3RCPC / / [id number] Allosource Crushed Fresh Frozen Cancellous 1-4mm Graft 15ml Bone [id number] - [id number] Implanted:Qty: 1 on 07/09/2023 by Mulugeta Navarrete MD at [facility] Spine Lumbar Allosource 11/21/2027 [id number] / / [id number] Medtronic Inc Kit Graft Bone Sponge Xlg Infuse 8cc Granules 2111210 - [id number] Implanted:Qty: 1 on 07/09/2023 by Mulugeta Navarrete MD at [facility] N/A: Spine Lumbar Medtronic Inc [id number] 12/01/2024 0561838 / / [id number] [place] Spine Graft Bone Filler Gel Bio Dbm 10 2008893 - [id number] Implanted:Qty: 1 on 07/09/2023 by Mulugeta Navarrete MD at [facility] N/A: Spine Lumbar [place] Spine [id number] 01/03/2026 [id number] / / [id number] Spineart Usa Inc Screw Spn Pedicle Sld 5x25mm Sjt-Ls 50 25-S - [id number] Implanted:Qty: 1 on 07/09/2023 by Mulugeta Navarrete MD at [facility] N/A: Spine Lumbar SPINEART USA INC [id number] 12/07/2029 SJT-LS 50 25-S / / [id number] Spineart Usa Inc Cage Secured Lumbar Anterior Small Lordosis 15deg 10 Mm Sca-Ls 15 10-S - [id number] Implanted:Qty: 1 on 07/09/2023 by Mulugeta Navarrete MD at [facility] N/A: Spine Lumbar SPINEART USA INC 01/07/2027 SCA-LS 15 10-S / / [id number] Spineart Usa Inc Screw Spn Pedicle Sld 5x25mm Sjt-Ls 50 25-S - [id number] Implanted:Qty: 1 on 07/09/2023 by Mulugeta Navarrete MD at [facility] N/A: Spine Lumbar SPINEART USA INC [id number] 02/28/2031 SJT-LS 50 25-S / / [id number] Medtronic Inc Kit Graft Bone Sponge Xlg Infuse 8cc Granules 8805658 - [id number] Implanted:Qty: 2 on 07/11/2023 by Mulugeta Navarrete MD at [facility] N/A: Spine Thoracic Medtronic Inc 12/01/2024 [id number] / / Viola Spine Graft Bone Filler Gel Bio Dbm 10 2330151 - [id number] Implanted:Qty: 1 on 07/11/2023 by Mulugeta Navarrete MD at [facility] N/A: Spine Thoracic [place] Spine [id number] 11/19/2025 4094275 / / [id number] [place] Spine Graft Bone Filler Gel Bio Dbm 10 7886855 - [id number] Implanted:Qty: 1 on 07/11/2023 by Mulugeta Navarrete MD at [facility] N/A: Spine Thoracic Viola Spine [id number] 01/03/2026 0597150 / / [id number] [place] Spine Graft Bone Filler Gel Bio Dbm 10 2885305 - [id number] Implanted:Qty: 1 on 07/11/2023 by Mulugeta Navarrete MD at [facility] N/A: Spine Thoracic [place] Spine [id number] 01/03/2026 0482131 / / [id number] Viola Spine Graft Bone Filler Gel Bio Dbm 10 9635931 - [id number] Implanted:Qty: 1 on 07/11/2023 by Mulugeta Navarrete MD at [facility] N/A: Spine Thoracic [place] Spine [id number] 01/03/2026 8737151 / / [id number] [place] Spine Graft Bone Filler Gel Bio Dbm 10 1506972 - [id number] Implanted:Qty: 1 on 07/11/2023 by Mulugeta Navarrete MD at [facility] N/A: Spine Thoracic [place] Spine [id number] 01/06/2026 3101891 / / [id number] Viola Spine Graft Bone Filler Gel Bio Dbm 10 9383353 - [id number] Implanted:Qty: 1 on 07/11/2023 by Mulugeta Navarrete MD at [facility] N/A: Spine Thoracic Viola Spine [id number] 01/03/2026 1611197 / / [id number] Allosource Crushed Chip Frozen Graft 30ml Bone Cancellous 61262968 - [id number] Implanted:Qty: 1 on 07/11/2023 by Mulugeta Navarrete MD at [facility] N/A: Spine Thoracic Allosource 08/19/2027 [id number] / / [id number] Allosource Crushed Chip Frozen Graft 90ml Bone Cancellous 96637581 - [id number] Implanted:Qty: 1 on 07/11/2023 by Mulugeta Navarrete MD at [facility] N/A: Spine Thoracic Allosource 10/21/2027 61720033 / / [id number] Viola Spine [place] Spine Screw Set Haney 2901-17571 - [id number] Implanted:Qty: 22 on 07/11/2023 by Mulugeta Navarrete MD at [facility] Viola Spine 2901-1 0001 / / Viola Spine [place] Od5.5 Mm L45 Mm Polyaxial Spine Screw Bone 2911-03131 - [id number] Implanted:Qty: 5 on 07/11/2023 by Mulugeta Navarrete MD at [facility] Viola Spine 2911-0 5545 / / Viola Spine [place] 6.5mm 30mm Polyaxial Spine Screw Bone Nonsterile 2911-51452 - [id number] Implanted:Qty: 2 on 07/11/2023 by Mulugeta Navarrete MD at [facility] [place] Spine 2911-0 6530 / / [place] Spine [place] Od6.5 Mm L40 Mm Polyaxial Spine Screw Bone 2911-94875 - [id number] Implanted:Qty: 2 on 07/11/2023 by Mulugeta Navarrete MD at [facility] [place]ake Spine 2911-0 6540 / / [place] Spine [place] Od6.5 Mm L45 Mm Polyaxial Spine Screw Bone 2911-03687 - [id number] Implanted:Qty: 6 on 07/11/2023 by Mulugeta Navarrete MD at [facility] [place]ake Spine 2911-0 6545 / / Viola Spine [place] Od6.5 Mm L60 Mm Polyaxial Spine Screw Bone Green 291107372 - [id number] Implanted:Qty: 1 on 07/11/2023 by Mulugeta Navarrete MD at [facility] Viola Spine 2911-0 6560 / / [place] Spine Screw 8.5 Mm Polyaxial - 70 Mm 2911-93924 - [id number] Implanted:Qty: 1 on 07/11/2023 by Mulugeta Navarrete MD at [facility] [place]ake Spine 2911-0 8570 / / Viola Spine Od8.5 Mm L80 Mm Polyaxial Spine Screw Bone Green 2911-35582 - [id number] Implanted:Qty: 1 on 07/11/2023 by Mulugeta Navarrete MD at [facility] Viola Spine 2911-0 8580 / / Viola Spine Connector Spinal Lateral Thoracolumbar Open Adjustable Offset [place] 25mm 2901-29254 - [id number] Implanted:Qty: 1 on 07/11/2023 by Mulugeta Navarrete MD at [facility] [place]ake Spine 2901-7 5525 / / Viola Spine [place] 35mm Lateral Offset Spine Connector Oswald Nonsterile Latex 2901-75538 - [id number] Implanted:Qty: 3 on 07/11/2023 by Mulugeta Navarrete MD at [facility] [place]ake Spine 2901-7 5535 / / [place] Spine L500 Mm Hexagonal End Oswald Spinal Titanium Alloy 101-P60221 - [id number] Implanted:Qty: 2 on 07/11/2023 by Mulugeta Navarrete MD at [facility] [place]arlake Spine 101-A5 5500 / / Procedures Procedure [...] Bone mineral density was performed on a BeDo Discovery Densitometer. Based on machine cross-calibration and [...] by the International Society of Clinical Densitometry. [id number] Mulugeta Navarrete MD IM DXA PROCEDURES F inal Result from Last 3 Months or Most Recently Relevant to Health Maintenance Insurance MEDICARE RAILROAD MEDICARE [facility]ILROAD [facility] MEDICARE RAILROAD [facility] Advance Directives For more information, please contact: [phone] Documents on File Type Date Recorded Patient Case Management Rn Expl anation ADVANCE DIRECTIVE 07/10/2023 3:54 PM POWER OF HR ADMINISTRATIVE ASSISTANT-MEDICAL ADVANCE DIRECTIVE 07/10/2023 3:30 PM POWER OF HR ADMINISTRATIVE ASSISTANT-MEDICAL * Full Code (Latest Code Status on [...] Alternate Health C are Agent Care Teams Operational Assistant Relationship Specialty Start Date End Date Carlos Alcala DO [address] [place] [address] [address] [place] [address] PCP - General Internal Medicine 12/25/23 Den Erickson MD [address] [place] [address] [address] [place] [address] Surgeon Orthopedic Surgery 06/11/19 Alexandrea Sunshine PA [address] [place] [address] [address] [place] [address] Physician Capsule Inspector Orthopedic Surgery 01/25/23
--- OUTSIDE RECORDS SUMMARY | 2024-12-28 11:02 | XMS_ITS | Clinical Summary ---
Author Organization [facility]gi Esquivelelizabeth Address [address] [facility] [place] [address] Care Team Providers Care Mirror Painter Name Role Phone [place] Figueroa MD Primary Care Provider [phone] Allergies Active Allergy Reactions Criticality Noted Date Comments Chlorhexidine Itching Medium 07/11/2023 Medications FISH [id number]-VIT C-VIT E ORAL Take by mouth. Ac [...] Comments Blood Pressure 126/69 07/01/2024 10:28 AM SCHOOL OFFICE MANAGER Pulse 82 07/01/2024 10:28 AM SCHOOL OFFICE MANAGER Temperature 36.4 C (97.6 F) 07/01/2024 10:28 AM SCHOOL OFFICE MANAGER Respiratory Rate 16 07/01/2024 10:2 8 AM SCHOOL OFFICE MANAGER Oxygen Saturation 96% 07/01/2024 10: 28 AM SCHOOL OFFICE MANAGER Inhaled Oxygen Concentration - - Weight 62.6 kg (138 lb) 07/01/2024 10:2 8 AM SCHOOL OFFICE MANAGER Patient stated this is the correct weight Height 166.4 cm (5' 5.5) 02/02/2022 11 :48 AM CDT Body Mass Index 22.62 02/02/2022 11:48 AM CDT Plan of Treatment Upcoming Encounters Date Type Department Care Team (Late st Contact Info) Description 12/30/2024 11:00 AM CDT Office Visit [facility] Oncology and Hematology - [place] [address] [place] [address] Elia Escobedo MD [address] [facility] [place] [address] Health Maintenance Due Date Last [...] Completed 2022 , 07/15/2016 Insurance [place] [address] [facility] [place] [address] Care Teams Mirror Painter Relationship Specialty Start Date End Date [place] Figueroa MD [address] [place] [id number] PCP - General Family Practice 12/12/22
--- OUTSIDE RECORDS SUMMARY | 2024-12-28 11:02 | XMS_ITS | Clinical Summary ---
Author Organization [facility] Address [address] [place] [address] Phone Care Team Providers Care Occupational Health Nursing Director Name Role Phone Carlos Alcala DO Primary Care Provider [phone] Allergies No known active allergies Medications Anoro [...] PCV) 2007 Influenza Vaccine (#1) [address] [place] [address] Care Teams Occupational Health Nursing Director Relationship Specialty Start Date End Date Carlos Alcala DO [address] [place] [address] PCP - General Internal Medicine 01/15/22
--- OUTSIDE RECORDS SUMMARY | 2024-12-28 11:02 | XMS_ITS | Clinical Summary ---
Author Organization [facility] [employer] [facility] Address [address] [place] [address] Care Team Providers Care Coagulator Name Role Phone Carlos Alcala DO Primary Care Provider [phone] Source Comments [facility] [employer] [facility],non-owned Affiliates and Associated Physician Practices is amultiple site organization consisting of ambulatory clinics and hospital sitesin [place], [place], [place] and [place]. This disclosure is being madepursuant to the Care Everywhere program and may not contain all information available regarding this patient. Last updated 18.[facility] [employer] Allergies No known active allergies Medications * [...] Comments Blood Pressure 134/67 04/08/2020 11:45 AM VARYING EXCEPTIONALITIES TEACHER Pulse 65 04/08/2020 11:45 AM VARYING EXCEPTIONALITIES TEACHER Temperature 37.2 C (98.9 F) 04/08/2020 8:22 AM VARYING EXCEPTIONALITIES TEACHER Respiratory Rate 17 04/08/2020 11:45 AM VARYING EXCEPTIONALITIES TEACHER Oxygen Saturation 97% 04/08/2020 11:45 AM VARYING EXCEPTIONALITIES TEACHER Inhaled Oxygen Concentration - - Weight 59 kg (130 lb) 04/08/2020 7:50 AM VARYING EXCEPTIONALITIES TEACHER Height 166.4 cm (5' 5.5) 04/08/2020 7:50 AM VARYING EXCEPTIONALITIES TEACHER Body Mass Index 21.3 04/08/2020 7:50 AM VARYING EXCEPTIONALITIES TEACHER Plan of Treatment Health Maintenance Due Date [...] to complete this topic Insurance MEDICARE MEDICARE [facility] [place] [facility] MEDICARE [facility] [place] [facility] MEDICARE [facility] [place] [facility] Care Teams Coagulator Relationship Specialty Start Date End Date Carlos Alcala DO [address] [place] [address] [id number] PCP - General 01/10/22
--- OUTSIDE RECORDS SUMMARY | 2024-12-28 11:02 | XMS_ITS | Encounter Summary ---
Author Organization [facility] Healthcare Address [address] [place] [address] Care Team Providers Care Refining Still Operator Name Role Phone Den Erickson MD Unavailable [phone] [place] Figueroa MD Primary Care Provider [phone] Alexandrea Sunshine Unavailable [phone] Encounter Details Date Type Department Care Team (Late st Contact Info) Description 03/21/2023 2:03 PM CDT Hospital Encounter [facility] Medical Group Orthopedics and Sports Medicine [address] [place] [address] Social History Tobacco Use Types Packs/Day [...] on file Legal Sex Female 12:44 AM ANESTHESIOLOGY FACULTY Gender Identity Not on file Sexual Orientation [...] COVID: Suspected 07/19/2023 07/19/2023 07/19/2023 7:52 PM ANESTHESIOLOGY FACULTY documented as of this encounter Care Teams Refining Still Operator Relationship Specialty Start Date End Date [place] Figueroa MD [address] [place] [address] PCP - General Family Practice 12/19/22 12/24/23 Den Erickson MD [address] [place] [address] Surgeon Orthopedic Surgery 06/11/19 Alexandrea Sunshine PA [address] [place] [address] Physician Civil Geotechnical Engineer Orthopedic Surgery 01/25/23 documented as of this encounter
--- OUTSIDE RECORDS SUMMARY | 2024-12-28 11:02 | XMS_ITS | Encounter Summary ---
Author Organization [facility] Address [address] [place] [address] Care Team Providers Care Service Learning Coordinator Name Role Phone Carlos Alcala DO Primary Care Provider [phone] Encounter Details Date Type Department Care Team (Late st Contact Info) Description 10/19/2020 Lab Requisition [facility] Lab [address] [place] [address] Billy Mccullough MD [address] [place] [address] Social History Tobacco Use Types [...] AM CDT) Case Report Dermatopathology Report Case: [id number] Authorizing Provider: Billy Mccullough MD Collected: 10/18/2020 12:00 AM Ordering Location: [facility] Derm[facility] Lab Received: 10/19/2020 01:45 PM [...] specimen consists of a shave biopsy measuring [id number]. Jar 0. 5:17 PM CDT DERMATOPATHOLOGY LABORATORY [...] characteristic determined by the Dermatopathology Laboratory at [facility], directed by Dr. James Rasmussen. These tests need not be, and therefore are not, approved by the [place] Food and Drug Administration. The tests are used for clinical purposes. Billing Codes Specimen Charges Stain Charges 10435 1 5:17 PM CDT DERMATOPATHOLOGY LABORATORY Embedded Images 5:17 PM CDT DERMATOPATHOLOGY LABORATORY Pathology/Cytolog y TISSUE SPECIMEN FROM SKIN / Unknown 10/18/2020 10/19/2020 1:45 PM CDT us Billy Mccullough MD LAB - PATHOLOGY/CYTOLOGY ORD ERABLES Final Result DERMATOPATHOLOGY LABORATORY [facility] - Department of Dermatology [facility] Specialized Medicine [address] [place] [address], [address] [phone] documented in this encounter Visit Diagnoses Not on filedocumented in this encounter Care Teams Service Learning Coordinator Relationship Specialty Start Date End Date Carlos Alcala DO [address] [place] [address] PCP - General 01/10/22 documented as of this encounter
== END 2024-12-28 11:09 | disposition home or self-care (01) ==
PROVIDERS: Emergency Provider Nurse Practitioner; PCP Nurse Practitioner
DX: L03.115 Cellulitis of right lower limb (principal); Z87.891 Personal history of nicotine dependence; J44.9 Chronic obstructive pulmonary disease, unspecified; L21.9 Seborrheic dermatitis, unspecified; E78.5 Hyperlipidemia, unspecified; M79.7 Fibromyalgia; K21.9 Gastro-esophageal reflux disease without esophagitis; M19.90 Unspecified osteoarthritis, unspecified site; E55.9 Vitamin D deficiency, unspecified
CPT/HCPCS: 99213; G0463

== ENCOUNTER 2025-02-15 09:04 | Outpatient (CLI) | payer MEDICARE, OTHER, SELFPAY ==
--- OUTSIDE RECORDS SUMMARY | 2023-03-21 14:03 | XMS_ITS | Encounter Summary ---
Author Organization [facility] Healthcare Address [address] [place] [address] Care Team Providers Care Portable Sawmill Operator Name Role Phone Den Erickson MD Unavailable [phone] Warren Figueroa MD Primary Care Provider [phone] Alexandrea Sunshine Unavailable [phone] Encounter Details Date Type Department Care Team (Late st Contact Info) Description 03/21/2023 2:03 PM CDT Hospital Encounter [facility] Medical Group Orthopedics and Sports Medicine [address] [place] [id number] Social History Tobacco Use Types Packs/Day [...] on file Legal Sex Female 12:44 AM INVESTOR RELATIONS ANALYST Gender Identity Not on file Sexual Orientation Not on file documented as of this encounter Functional Status * AUDIT-C Score Answer Date of Assessment Author 5 07/08/2023 12:54 PM Barb Clemons RN * Question Answer Date of Assessment Author Q1: [...] monthly 07/08/2023 12:54 PM Barb Clemons RN documented as of this encounter Plan of Treatment Not on [...] with implants in acceptable position. Quinn Cantu NP IMG XR PROCEDURES Final Result documented in this encounter Visit Diagnoses Not on filedocumented in this encounter Additional Health Concerns Infection Onset Date Last Indicated Resolved Time COVID: Suspected 07/19/2023 07/19/2023 07/19/2023 7:52 PM INVESTOR RELATIONS ANALYST documented as of this encounter Care Teams Portable Sawmill Operator Relationship Specialty Start Date End Date Warren Figueroa MD [address] [facility] [address] [place] [address] PCP - General Family Practice 12/19/22 12/24/23 Den Erickson MD [address] [facility] [address] [place] [address] Surgeon Orthopedic Surgery 06/11/19 Alexandrea Sunshine PA [address] [facility] [address] [place] [address] Physician Library Technical Assistant Orthopedic Surgery 01/25/23 documented as of this encounter
[2025-02-15 09:44] LABS: Total Protein Urine Random 6 mg/dL; Ur Ttl Prot Creatinine Ratio 0.04 mg/mg (0-0.20)
--- OUTSIDE RECORDS SUMMARY | 2025-02-15 09:50 | XMS_ITS | Clinical Summary ---
Author Organization [facility] Address [address] [facility] [place] [address] Care Team Providers Care Lead Cashier Name Role Phone Carlos Alcala DO Primary Care Provider [phone] Source Comments [facility],non-owned Affiliates and Associated Physician Practices is amultiple site organization consisting of ambulatory clinics and hospital sitesin [place], [place], [place] and [place]. This disclosure is being madepursuant to the Care Everywhere program and may not contain all information available regarding this patient. Last updated 18.[facility] Allergies No known active allergies Medications * [...] Comments Blood Pressure 134/67 04/08/2020 11:45 AM ANTISUBMARINE WEAPONS OFFICER Pulse 65 04/08/2020 11:45 AM ANTISUBMARINE WEAPONS OFFICER Temperature 37.2 C (98.9 F) 04/08/2020 8:22 AM ANTISUBMARINE WEAPONS OFFICER Respiratory Rate 17 04/08/2020 11:45 AM ANTISUBMARINE WEAPONS OFFICER Oxygen Saturation 97% 04/08/2020 11:45 AM ANTISUBMARINE WEAPONS OFFICER Inhaled Oxygen Concentration - - Weight 59 kg (130 lb) 04/08/2020 7:50 AM ANTISUBMARINE WEAPONS OFFICER Height 166.4 cm (5' 5.5) 04/08/2020 7:50 AM ANTISUBMARINE WEAPONS OFFICER Body Mass Index 21.3 04/08/2020 7:50 AM ANTISUBMARINE WEAPONS OFFICER Plan of Treatment Health Maintenance Due Date [...] 2007 ZOSTER VACCINE (1 of 2) 2007 DEPRESSION SCREENING 06/03/2024 COVID-19 VACCINE (2023- season) 2025 INFLUENZA VACCINE (#1) 2025 , 05/30/2018, 04/08/2017, [...] to complete this topic Insurance MEDICARE MEDICARE [facility] MEDICARE [facility] MEDICARE [facility] Care Teams Lead Cashier Relationship Specialty Start Date End Date Carlos Alcala DO [address] [place] [id number] PCP - General 01/10/22
--- OUTSIDE RECORDS SUMMARY | 2025-02-15 09:50 | XMS_ITS | Encounter Summary ---
Author Organization [facility] Address [address] [facility] [place] [address] Care Team Providers Care Freight Solicitor Name Role Phone Carlos Alcala DO Primary Care Provider [phone] Encounter Details Date Type Department Care Team (Late st Contact Info) Description 10/19/2020 Lab Requisition [facility] Care DermPath Lab [address] [facility] [place] [address] Billy Mccullough MD [address] [place] [address] Social History Tobacco Use Types [...] AM CDT) Case Report Dermatopathology Report Case: [id number] Authorizing Provider: Billy Mccullough MD Collected: 10/18/2020 12:00 AM Ordering Location: [facility] Lab Received: 10/19/2020 01:45 PM Pathologist: [...] specimen consists of a shave biopsy measuring [id number]. Jar 0. 5:17 PM CDT DERMATOPATHOLOGY LABORATORY [...] characteristic determined by the Dermatopathology Laboratory at [facility], directed by Dr. James Rasmussen. These tests need not be, and therefore are not, approved by the [place] Food and Drug Administration. The tests are used for clinical purposes. Billing Codes Specimen Charges Stain Charges 40770 1 5:17 PM CDT DERMATOPATHOLOGY LABORATORY Embedded Images 5:17 PM CDT DERMATOPATHOLOGY LABORATORY Pathology/Cytolog y TISSUE SPECIMEN FROM SKIN / Unknown 10/18/2020 10/19/2020 1:45 PM CDT us Billy Mccullough MD LAB - PATHOLOGY/CYTOLOGY ORD ERABLES Final Result DERMATOPATHOLOGY LABORATORY [facility] - Department of Dermatology [facility] Specialized Medicine [address] [place] [address], [address] [phone] documented in this encounter Visit Diagnoses Not on filedocumented in this encounter Care Teams Freight Solicitor Relationship Specialty Start Date End Date Carlos Alcala DO [address] [place] [address] PCP - General 01/10/22 documented as of this encounter
--- OUTSIDE RECORDS SUMMARY | 2025-02-15 09:50 | XMS_ITS | Clinical Summary ---
Author Organization [facility] Address [address] [place] [address] Care Team Providers Care Load Test Mechanic Name Role Phone Den Erickson MD Unavailable [phone] Alexandrea Sunshine Unavailable [phone] Carlos Alcala DO Primary Care Provider [phone] Allergies Active Allergy Reactions Criticality Noted Date [...] 1 tablet (20 mEq total) by mouth early childhood teacher before breakfast 3 Active LORazepam (ATIVAN) 0.5 [...] 07/12/2023 Assessment & Plan (07/14/2023 11:54 AM CUSTOMER SUCCESS REPRESENTATIVE): - EKG and tele showing new onset [...] right rotator cuff 10/14/19 20 Discharge from [facility] 04/14/2014 Resolved Problems Problem Noted Date Diagnosed Date Resolved Date Traumatic rotator cuff tear, right, initial encounter 06/08/2019 10/14/2019 Overview (06/08/2019): Added automatically from request for surgery [id number] Arthritis of right acromioclavicular joint 06/08/2019 10/14/2019 Overview (06/08/2019): Added automatically from request for surgery [id number] 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 06/08/2019 10/14/2019 Overview (06/08/2019): Added automatically from request for surgery [id number] Impingement syndrome of right shoulder 06/08/2019 10/14/2019 Overview (06/08/2019): Added automatically from request for surgery [id number] Immunizations Immunization Administration Dates Next Due Influenza, [...] Back pain COPD (chronic obstructive pulmonary disease) mild Anemia Anxiety Hyponatremia Fibromyalgia History of [...] on file Legal Sex Female 12:44 AM CUSTOMER SUCCESS REPRESENTATIVE Gender Identity Not on file Sexual Orientation Not on file Obstetrics History Last Filed Vital Signs Vital Sign Reading Time Taken Comments Blood Pressure 162/74 06/16/2024 1:28 PM CUSTOMER SUCCESS REPRESENTATIVE Pulse 96 06/16/2024 1:28 PM CUSTOMER SUCCESS REPRESENTATIVE Temperature 36.6 C (97.8 F) 07/19/2023 11:29 AM CUSTOMER SUCCESS REPRESENTATIVE Respiratory Rate 15 07/20/2023 8:30 AM CUSTOMER SUCCESS REPRESENTATIVE Oxygen Saturation 98% 07/20/2023 8:30 AM CUSTOMER SUCCESS REPRESENTATIVE Inhaled Oxygen Concentration - - Weight 62.1 kg (137 lb) 06/16/2024 1:28 PM CUSTOMER SUCCESS REPRESENTATIVE Height 160 cm (5' 3) 06/16/2024 1:28 PM CUSTOMER SUCCESS REPRESENTATIVE Body Mass Index 24.27 06/16/2024 1:28 PM CUSTOMER SUCCESS REPRESENTATIVE Plan of Treatment Health Maintenance Due Date Last Done Comments Breast Cancer Screening-Mammogram 1957 Colon Cancer Screening-Colonoscopy 1957 Hepatitis C Screening 1957 DTaP/Tdap/Td Vaccine (1 - Tdap) 1968 Hepatitis B Screening 1975 Zoster Vaccine (1 of 2) 2007 Pneumococcal vaccine 65+ (2 of 2 - PPSV23, PCV20, or PCV21) 09/09/2016 07/15/2016 Well Visit 65+ 2022 Depression Screening 11/29/2023 11/28/2022 Fall Risk Assessment 07/15/2024 07/15/2023, 11/29/19 23 Influenza Vaccine (#1) 2025 , 06/05/2019, 05/30/2018, Additional history exists Osteoporosis Screening-Bone Density Scan 03/27/2025 03/27/2023, 03/27/2023 Medical Devices Implanted Type Area Motion Picture Critic Device Identifier Shelf Expiration Date Model / Serial / Lot Arthrex Inc Ar-3633 Arthrex Fibertak Tape 3 Load Rotator Cuff Eldridge Suture Sterile Latex Free - [id number] Implanted:Qty: 1 on 06/11/2019 by Den Erickson MD at [facility] Right: Shoulder Arthrex Inc 03/02/2024 AR-3633 / / [id number] Arthrex Inc Ar-2324bcc Swivelock C 4.75mm 19.1mm Closed Eyelet Vent Eldridge Suture - [id number] Implanted:Qty: 1 on 06/11/2019 by Den Erickson MD at [facility] Right: Shoulder Arthrex Inc 04/02/2021 AR-2324BCC / / [id number] Arthrex Inc Arthrex Univers Revers Shoulder 7 Stem Humeral Sterile Ar-9501-07p - [id number] Implanted:Qty: 1 on 01/24/2023 by Den Erickson MD at [facility] Right: Shoulder Arthrex Inc [id number] 03/02/2027 AR-9501-07 P / / [id number] Arthrex Inc Baseplate 24mm 10 Deg Full Augment Oblique Sd-9726-1276 - [id number] Implanted:Qty: 1 on 01/24/2023 by Den Erickson MD at [facility] Right: Shoulder Arthrex Inc [id number] 10/01/2027 AR-9580-24 10 / / [id number] Arthrex Inc Component Glenoid Modular Post Reverse 20mm Ar-9582-20 - [id number] Implanted:Qty: 1 on 01/24/2023 by Den Erickson MD at [facility] Right: Shoulder Arthrex Inc [id number] 08/01/2027 AR-9582-20 / / [id number] Arthrex Inc 36mm 24 Baseplate Taper Sphere Glenoid Vd-3592-5644 - [id number] Implanted:Qty: 1 on 01/24/2023 by Den Erickson MD at [facility] Right: Shoulder Arthrex Inc [id number] 04/02/2026 AR-9564-24 36 / / [id number] Arthrex Inc 5.5mm 24mm Lock Modular Glenoid Screw Bone Ar-9563-24 - [id number] Implanted:Qty: 1 on 01/24/2023 by Den Erickson MD at [facility] Right: Shoulder Arthrex Inc [id number] 10/01/2027 AR-9563-24 / / [id number] Arthrex Inc 5.5mm 36mm Lock Peripheral Screw Bone Sterile Ar-9563-36 - [id number] Implanted:Qty: 1 on 01/24/2023 by Den Erickson MD at [facility] Right: Shoulder Arthrex Inc [id number] 08/01/2027 AR-9563-36 / / [id number] Arthrex Inc Insert Humeral Combo Reverse Poly Univers Revers +3x33mm Xw-8861-8812-3 - [id number] Implanted:Qty: 1 on 01/24/2023 by Den Erickson MD at [facility] Right: Shoulder Arthrex Inc [id number] 01/31/2027 AR-9503-33 36-3 / / [id number] Arthrex Inc Implant Suture Cup Humeral Reverse Right Univers Revers +2x33mm Titanium [id number] - [id number] Implanted:Qty: 1 on 01/24/2023 by Den Erickson MD at [facility] Right: Shoulder Arthrex Inc [id number] 04/02/2027 AR-9502F-3 3RCPC / / [id number] Allosource Crushed Fresh Frozen Cancellous 1-4mm Graft 15ml Bone 05484310 - [id number] Implanted:Qty: 1 on 07/09/2023 by Mulugeta Navarrete MD at [facility] Spine Lumbar Allosource 11/21/2027 [id number] / / [id number] Medtronic Inc Kit Graft Bone Sponge Xlg Infuse 8cc Granules 1447086 - [id number] Implanted:Qty: 1 on 07/09/2023 by Mulugeta Navarrete MD at [facility] N/A: Spine Lumbar Medtronic Inc [id number] 12/01/2024 [id number] / / [id number] Viola Spine Graft Bone Filler Gel Bio Dbm 10cc 8325063 - [id number] Implanted:Qty: 1 on 07/09/2023 by Mulugeta Navarrete MD at [facility] N/A: Spine Lumbar [place] Spine [id number] 01/03/2026 4804200 / / [id number] Spineart [facility] Inc Screw Spn Pedicle Sld 5x25mm Sjt-Ls 50 25-S - [id number] Implanted:Qty: 1 on 07/09/2023 by Mulugeta Navarrete MD at [facility] N/A: Spine Lumbar SPINEART USA INC [id number] 12/07/2029 SJT-LS 50 25-S / / [id number] Spineart [place] Inc Cage Secured Lumbar Anterior Small Lordosis 15deg 10 Mm Sca-Ls 15 10-S - [id number] Implanted:Qty: 1 on 07/09/2023 by Mulugeta Navarrete MD at [facility] N/A: Spine Lumbar SPINEART USA INC 01/07/2027 SCA-LS 15 10-S / / [id number] Spineart [place] Inc Screw Spn Pedicle Sld 5x25mm Sjt-Ls 50 25-S - [id number] Implanted:Qty: 1 on 07/09/2023 by Mulugeta Navarrete MD at [facility] N/A: Spine Lumbar SPINEART [employer] INC [id number] 02/28/2031 SJT-LS 50 25-S / / [id number] Medtronic Inc Kit Graft Bone Sponge Xlg Infuse 8cc Granules 9791328 - [id number] Implanted:Qty: 2 on 07/11/2023 by Mulugeta Navarrete MD at [facility] N/A: Spine Thoracic Medtronic Inc 12/01/2024 [id number] / / [place] Spine Graft Bone Filler Gel Bio Dbm [facility] 0294809 - [id number] Implanted:Qty: 1 on 07/11/2023 by Mulugeta Navarrete MD at [facility] N/A: Spine Thoracic Viola Spine [id number] 11/19/2025 0221928 / / [id number] Viola Spine Graft Bone Filler Gel Bio Dbm 10 9729482 - [id number] Implanted:Qty: 1 on 07/11/2023 by Mulugeta Navarrete MD at [facility] N/A: Spine Thoracic Viola Spine [id number] 01/03/2026 6540591 / / [id number] Camden Spine Graft Bone Filler Gel Bio Dbm 10 9300736 - [id number] Implanted:Qty: 1 on 07/11/2023 by Mulugeta Navarrete MD at [facility] N/A: Spine Thoracic Viola Spine [id number] 01/03/2026 3129846 / / [id number] Camden Spine Graft Bone Filler Gel Bio Dbm 10 5217384 - [id number] Implanted:Qty: 1 on 07/11/2023 by Mulugeta Navarrete MD at [facility] N/A: Spine Thoracic Viola Spine [id number] 01/03/2026 2102180 / / [id number] Camden Spine Graft Bone Filler Gel Bio Dbm [facility] 1041974 - [id number] Implanted:Qty: 1 on 07/11/2023 by Mulugeta Navarrete MD at [facility] N/A: Spine Thoracic Viola Spine [id number] 01/06/2026 2970753 / / [id number] Viola Spine Graft Bone Filler Gel Bio Dbm 10 1321774 - [id number] Implanted:Qty: 1 on 07/11/2023 by Mulugeta Navarrete MD at [facility] N/A: Spine Thoracic Viola Spine [id number] 01/03/2026 3742344 / / [id number] Allosource Crushed Chip Frozen Graft 30ml Bone Cancellous 38363024 - [id number] Implanted:Qty: 1 on 07/11/2023 by Mulugeta Navarrete MD at [facility] N/A: Spine Thoracic Allosource 08/19/2027 80525759 / / [id number] Allosource Crushed Chip Frozen Graft 90ml Bone Cancellous 91976279 - [id number] Implanted:Qty: 1 on 07/11/2023 by Mulugeta Navarrete MD at [facility] N/A: Spine Thoracic Allosource 10/21/2027 70247418 / / [id number] Viola Spine [place] Spine Screw Set Haney 2901-15343 - [id number] Implanted:Qty: 22 on 07/11/2023 by Mulugeta Navarrete MD at [facility] Camden Spine 2901-1 0001 / / Viola Spine [place] Od5.5 Mm L45 Mm Polyaxial Spine Screw Bone 291148175 - [id number] Implanted:Qty: 5 on 07/11/2023 by Mulugeta Navarrete MD at [facility] Camden Spine 2911-0 5545 / / Camden Spine [place] 6.5mm 30mm Polyaxial Spine Screw Bone Nonsterile 2911-87921 - [id number] Implanted:Qty: 2 on 07/11/2023 by Mulugeta Navarrete MD at [facility] Viola Spine 2911-0 6530 / / Viola Spine [place] Od6.5 Mm L40 Mm Polyaxial Spine Screw Bone 291100323 - [id number] Implanted:Qty: 2 on 07/11/2023 by Mulugeta Navarrete MD at [facility] Viola Spine 2911-0 6540 / / Viola Spine [place] Od6.5 Mm L45 Mm Polyaxial Spine Screw Bone 2911-58370 - [id number] Implanted:Qty: 6 on 07/11/2023 by Mulugeta Navarrete MD at [facility] Camden Spine 2911-0 6545 / / Viola Spine [place] Od6.5 Mm L60 Mm Polyaxial Spine Screw Bone Green 291147503 - [id number] Implanted:Qty: 1 on 07/11/2023 by Mulugeta Navarrete MD at [facility] Viola Spine 2911-0 6560 / / Viola Spine Screw 8.5 Mm Polyaxial - 70 Mm 2911-94862 - [id number] Implanted:Qty: 1 on 07/11/2023 by Mulugeta Navarrete MD at [facility] Camden Spine 2911-0 8570 / / Viola Spine Od8.5 Mm L80 Mm Polyaxial Spine Screw Bone Green 2911-47638 - [id number] Implanted:Qty: 1 on 07/11/2023 by Mulugeta Navarrete MD at [facility] Viola Spine 2911-0 8580 / / Camden Spine Connector Spinal Lateral Thoracolumbar Open Adjustable Offset [place] 25mm 2901-45571 - [id number] Implanted:Qty: 1 on 07/11/2023 by Mulugeta Navarrete MD at [facility] Viola Spine 2901-7 5525 / / Camden Spine [place] 35mm Lateral Offset Spine Connector Oswald Nonsterile Latex 2901-41197 - [id number] Implanted:Qty: 3 on 07/11/2023 by Mulugeta Navarrete MD at [facility] Viola Spine 2901-7 5535 / / Viola Spine L500 Mm Hexagonal End Oswald Spinal Titanium Alloy 101-X83069 - [id number] Implanted:Qty: 2 on 07/11/2023 by Mulugeta Navarrete MD at [facility] Camden Spine 101-A5 5500 / / Procedures Procedure [...] Bone mineral density was performed on a Vaughn Burton Discovery Densitometer. Based on machine cross-calibration and [...] by the International Society of Clinical Densitometry. [id number] Mulugeta Navarrete MD [facility] DXA PROCEDURES F inal Result from Last 3 Months or Most Recently Relevant to Health Maintenance Insurance MEDICARE RA[employer]ROAD [employer] [place] MEDICARE RAILROAD [facility] MEDICARE RAILROAD [facility] Advance Directives For more information, please contact: [phone] Documents on File Type Date Recorded Patient Vice President Business & Corporate Development Expl anation ADVANCE DIRECTIVE 07/10/2023 3:54 PM POWER OF [employer]AR[employer]I [employer]KER-MEDICAL ADVANCE DIRECTIVE 07/10/2023 3:30 PM POWER OF MACARONI MAKER-MEDICAL * Full Code (Latest Code Status on File) Date Activated Date Inactivated Comments 07/09/2023 2:12 PM 07/15/2023 8:53 PM * Full Code Date Activated Date Inactivated Comments 07/08/2023 12:52 PM 07/09/2023 5:13 AM * Full Code Date Activated Date Inactivated Comments 01/24/2023 2:35 PM 01/25/2023 7:43 PM Healthcare Agents on File Name Relationship Healthcare Agent [facility] Communication Israel Chung Spouse Health Care Agent Sheldon Varghese Daughter First Alternate Health C are Agent Care Teams Load Test Mechanic Relationship Specialty Start Date End Date Carlos Alcala DO [address] [place] [address] [address] [place] [address] PCP - General Internal Medicine 12/25/23 Den Erickson MD [address] [facility] [address] [place] [address] Surgeon Orthopedic Surgery 06/11/19 Alexandrea Sunshine PA [address] [place] [address] [address] [place] [address] Physician Tangled Yarn Worker Orthopedic Surgery 01/25/23
--- OUTSIDE RECORDS SUMMARY | 2025-02-15 09:50 | XMS_ITS | Clinical Summary ---
Author Organization [facility] Address [address] [place] [place] [address] Care Team Providers Care Stock Fitter Name Role Phone Carlos Alcala Primary Care Provider Allergies Active Allergy Reactions Criticality Noted Date Comments Chlorhexidine Itching Medium 07/11/2023 Medications FISH [id number]-0-VIT C-VIT E ORAL Take by mouth. Ac [...] FOR SHORTNESS OF BREATH OR WHEEZING Active cephALEXin (KEFLEX) 500 mg capsule Take 500 mg by mouth 4 times daily. Active Active Problems Problem Noted Date Diagnosed Date Chronic anemia 02/02/2022 Reactive thrombocytosis 02/02/2022 Encounters Date Type Department Care Team Description 02/09/2025 External Device Data STL ABSTRACTION Provider, Abstract 01/06/2025 External Device Data STL ABSTRACTION Provider, Abstract 01/05/2025 External Device Data STL ABSTRACTION Provider, Abstract 12/30/2024 11:00 AM CDT Office Visit [facility] Oncology and Hematology - [place] [address] [address] Elia Escobedo MD Chronic anemia (Primary Dx) 12/16/2024 External Device Data STL ABSTRACTION Provider, [...] Sign Reading Time Taken Comments Blood Pressure 139/79 12/30/2024 11:05 AM CDT Pulse 97 12/30/2024 11:05 AM CDT Temperature 36.4 C (97.5 F) 12/30/2024 11:05 AM CDT Respiratory Rate 15 12/30/2024 11:05 AM CDT Oxygen Saturation 94% 12/30/2024 11:05 AM CDT Inhaled Oxygen Concentration - - Weight 64.5 kg (142 lb 1.6 oz) 12/30/2024 11:05 AM CDT Height 166.4 cm (5' 5.5) 02/02/2022 11:48 AM CD T Body Mass Index 23.29 02/02/2022 11:48 AM CDT Plan of Treatment Upcoming Encounters Date Type Department Care Team (Late st Contact Info) Description 07/02/2025 10:15 AM FREIGHT ELEVATOR OPERATOR Office Visit [facility] Oncology and Hematology - [place] [address] [facility] [address] [place] [address] Elia Escobedo MD [address] [facility] [address] [place] [address] Health Maintenance Due Date Last Done Comments DTAP/TDAP/TD VACCINES (1 - Tdap) 1976 COLORECTAL SCREENING 2002 Colorectal Cancer Screening [...] Completed 2022 , 07/15/2016 Insurance MEDICARE RAILROAD [facility] Care Teams Stock Fitter Relationship Specialty Start Date End Date Carlos Alcala DO [address] [facility] [address] [place] [address] PCP - General Internal Medicine 12/30/24
--- OUTSIDE RECORDS SUMMARY | 2025-02-15 09:50 | XMS_ITS | Clinical Summary ---
Author Organization [facility] Address [address] [place] [address] Phone Care Team Providers Care Doubler Operator Name Role Phone aCrlos Alcala DO Primary Care Provider Allergies No known active allergies Medications Anoro [...] PCV) 2007 Influenza Vaccine (#1) [address] [place] [address] Care Teams Doubler Operator Relationship Specialty Start Date End Date Carlos Alcala DO [address] [place] [address] PCP - General Internal Medicine 01/15/22
--- OUTSIDE RECORDS SUMMARY | 2025-02-15 09:50 | XMS_ITS | Patient Health Record ---
Author Organization [employer] [facility] Address [address] [place], [place] [address] Care Team Providers Care Rod Cup Filler Name Role Phone JACQUELINE LISSETT Primary Care Provider Marshal Cervantes Unavailable [phone] ALLERGIES No Known Allergies REASON FOR REFERRAL [...] Notes Problem Polyarthralgia (719.49) Active confirmed Polyarthralgia (30949302) Problem Myalgia (729.1) Active confirmed Myalgi a (15812206) Problem POLYARTHRITIS (716.59) Active confirmed Polyarthritis (114385205) Problem Fibromyalgia (729.1) Active confirmed Fibromyalgia (914982938) Problem Polyarthralgia (M25.50) Active confirmed 17002001 Problem Myalgia (M79.10) Active confirmed 58422 001 Problem Dry eye (H04.129) Active confirmed 1622 06407 Problem Dry mouth (R68.2) Active confirmed 8771 5008 Problem Morning stiffness of joints (M25.60) Active confirmed 99290418 Problem Low back pain at multiple sites (M54.50) Active confirmed 435958234 Problem Fibromyalgia (M79.7) Active confirmed 655940833 PLAN OF TREATMENT Pending Test Test Name [...] Insured Coverage Start Date Coverage End Date [place] [employer] [address] [address] [place] [address] [phone] [id number] Yennifer Chungyl Self - patient is [...]
[2025-02-15 09:58] LABS: Albumin Level 4.1 g/dL (3.5-5.1); Anion Gap 8 mmol/L (4-12); Blood Urea Nitrogen 9 mg/dL (7-17); Calcium 9.1 mg/dL (8.4-10.2); Carbon Dioxide 25 mmol/L (22-30); Chloride 100 mmol/L (98-107); Estimated Glomerular Filt Rate > 60; Glucose 94 mg/dL (65-110); Potassium 4.1 mmol/L (3.4-5.0); Sodium 133 mmol/L (137-145)
== END 2025-02-15 09:05 | disposition home or self-care (01) ==
LOC: ANHLAB 09:07
PROVIDERS: PCP Nurse Practitioner; Visit Provider Internal Medicine Nephrology
DX: N18.31 Chronic kidney disease, stage 3a (principal)
CPT/HCPCS: 36415; 80069; 82570; 84156

== ENCOUNTER 2025-02-25 09:17 | Outpatient (CLI) | payer MEDICARE, OTHER, SELFPAY ==
[2025-02-25 10:50] LABS: Anion Gap 8 mmol/L (4-12); Blood Urea Nitrogen 13 mg/dL (7-17); Calcium 9.6 mg/dL (8.4-10.2); Carbon Dioxide 25 mmol/L (22-30); Chloride 101 mmol/L (98-107); Estimated Glomerular Filt Rate > 60; Glucose 109 mg/dL (65-110); Potassium 4.8 mmol/L (3.4-5.0); Sodium 134 mmol/L (137-145)
== END 2025-02-25 09:18 | disposition home or self-care (01) ==
PROVIDERS: PCP Nurse Practitioner; Visit Provider Internal Medicine Nephrology
DX: E87.1 Hypo-osmolality and hyponatremia (principal); N18.31 Chronic kidney disease, stage 3a
CPT/HCPCS: 36415; 80048

== ENCOUNTER 2025-04-30 13:01 | Outpatient (CLI) | payer MEDICARE, OTHER, SELFPAY ==
--- OUTSIDE RECORDS SUMMARY | 2023-03-21 13:03 | XMS_ITS | Encounter Summary ---
Author Organization [facility] Healthcare Address [address] [place] [address] Care Team Providers Care Retail Banking Manager Name Role Phone Den Erickson MD Unavailable [phone] Warren Figueroa MD Primary Care Provider [phone] Alexandrea Sunshine Unavailable Encounter Details Date Type Department Care Team (Late st Contact Info) Description 03/21/2023 2:03 PM CDT Hospital Encounter [facility] Medical Group Orthopedics and Sports Medicine [address] [place] [id number] Social History Tobacco Use Types Packs/Day Years Used Date Smoking Tobacco: Former Cigarettes 2 29.7 0 06/25/1975 - 03/17/2005 Passive Smoke Exposure: Past Smokeless Tobacco: Never Alcohol Use Standard Drinks/Week Comments Yes 0 (1 standard drink = 0.6 oz pur e alcohol) Socially AUDIT-C Answer Date Recorded Q1: How often do you have a drink containing alc ohol? 2-3 times a week 07/08/2023 Q2: How many drinks containi ng alcohol do you have on a typical day when you are drinking? 3 or 4 07/08/2023 Q3: How often do you have si x or more drinks on one occasion? Less than monthly 07/08/2023 PHQ-2 Answer Date Recorded PHQ-2 Total Score (If total score is 3 or more points, staff should administer the PHQ-9) 0 01/24/2023 Personal Safety Answer Date Recorded Have you ever been in or are you currently in a harmful physical or emotional relationship or is someone making you feel afraid or unsafe? Denies 07/19/2023 Comments No Sex and Gender Information Value Date Recorded Sex Assigned at Not on file Legal Sex Female 12:44 AM PSYCHOLOGY PHYSICIAN Gender Identity Not on file Sexual Orientation Not on file documented as of this encounter Functional Status * C.A.G.E. Question Answer Date of Assessment Author Have you ever felt the need to Cut down on your drinking? 0 07/09/2023 2:10 PM Napoleon Montana RN Have people ever Annoyed yo u by criticizing your drinking? 0 07/09/2023 2:10 PM Napoleon Carson RN Have you ever felt bad or Guilty about your drinking? 0 07/09/2023 2:10 PM Napoleon Montana RN Have you ever had a drink first thing in the morning to steady your nerves or get rid of a hangover? Eye technical staff assistant? 0 07/09/2023 2:10 PM Napoleon Montana RN CAGE SCORE: 2 or Greater = Positive 0 07/09/2023 2:10 PM Napoleon Montana RN * Difference in Last Two Jose Antonio Scores Answer Date of Assessment Author -1 07/15/2023 8:47 AM PSYCHOLOGY PHYSICIAN Susie Sharma RN * Question Answer Date of Assessment Author Arterial Line BP 128/64 07/11/2023 7:35 PM PSYCHOLOGY PHYSICIAN Hunter Eldridge RN BP Location Right arm 07/15/2023 4:00 PM PSYCHOLOGY PHYSICIAN Basilio Reyes BP Method Automatic 07/15/2023 4:00 PM PSYCHOLOGY PHYSICIAN Basilio Reyes MAP (mmHg) 95 07/20/2023 8:30 AM PSYCHOLOGY PHYSICIAN Divina Fritz RN * Pérez Fall Risk Question Answer Date of Assessment Author History of Falling 0 07/15/2023 8:47 AM Precious Cantor RN Secondary Diagnosis 15 07/15/2023 8:47 AM CS T Precious Sharma RN Ambulatory Aids 15 07/15/2023 8:47 AM PSYCHOLOGY PHYSICIAN Precious Cortes RN Intravenous Therapy/Heparin/ Saline Lock 20 07/15/2023 8:47 AM Precious Cantor RN Gait/Transferring 10 07/15/2023 8:47 AM Precious Cantor RN Mental Status 0 07/15/2023 8:47 AM Precious Cantor RN Pérez Fall Risk Score (Score >= 45 places fall precaution order) 60 07/15/2023 8:47 AM Ton Cantor RN Prior Fall Event (Autopopula marianna from EMR) None found 07/15/2023 8:47 AM Precious Cantor RN * Jose Antonio Scale Question Answer Date of Assessment Author Sensory Perceptions 3 07/15/2023 8:47 AM CS T Precious Sharma RN Moisture 3 07/15/2023 8:47 AM Precious Cantor RN Activity 3 07/15/2023 8:47 AM Precious Cantor RN Mobility 3 07/15/2023 8:47 AM Precious Cantor RN Nutrition 3 07/15/2023 8:47 AM Precious Cantor RN Friction and Shear 3 07/15/2023 8:47 AM Precious Cantor RN Jose Antonio Scale Score 18 07/15/2023 8:47 AM Precious Cantor RN * Question Answer Date of Assessment Author Arterial Line MAP (mmHg) 89 07/11/2023 7:35 PM Hunter Acuña RN * Fall Risk Interventions Question Answer Date of Assessment Author All Low Fall Interventions Applied Yes 07/15/2023 8:47 AM Precious Cantor RN All Low Fall Interventions EXCEPT: Provide fall prevention education;Bed in lowest position;Wheels locked;Call light in reach;Encourage to call for assistance;Non-skid footwear/socks 07/13/2023 7:50 AM Trey Oconnor RN All Moderate Fall Interventions Applied Yes 07/15/2023 8:47 AM Precious Cantor RN All Moderate Fall Risk Interventions EXCEPT: Fall risk sign with education;Gait belt at bedside;PT eval requested or obtained;OT eval requested or obtained 07/09/2023 5:30 AM Sammy Miller RN All High Fall Risk Interventions Applied Yes 07/15/2023 8:47 AM Precious Cantor RN All High Risk Interventions EXCEPT: Bed alarm;Chair alarm;Near RN station/area;Fall risk sign with education 07/09/2023 5:30 AM PSYCHOLOGY PHYSICIAN Sammy Barker, BARBRA Additional Interventions Applied Bed/chair alarm 07/14/2023 8:30 PM PSYCHOLOGY PHYSICIAN Erica Hernandez, BARBRA Reason For Exception(s) periop 07/09/19 24 5:30 AM Sammy Miller, RN Reason For Exception(s) periop 07/09/19 5:30 AM PSYCHOLOGY PHYSICIAN Sammy Barker, BARBRA Reason For Exception(s) periop 07/09/19 24 5:30 AM PSYCHOLOGY PHYSICIAN Sammy Barker, RN * Question Answer Date of Assessment Author PT Functional Mobility Interventions: be d mobility, transfers, ambulation, education. 07/14/2023 1:26 PM PSYCHOLOGY PHYSICIAN Quinton Jack, PT * B.M.A.T. - Bedside Mobility Assessment Tool for Nurses Question Answer Date of Assessment Author Is patient able to participate in the BMAT? Yes 07/15/2023 8:47 AM Precious Cantor RN BMAT Level Level 3 - Yellow 07/15/2023 8:47 AM Precious ROSALES aas, RN Level 2 Equipment Use qen-tu-eyquu lif t for pt who can weight-bear on at least one leg 07/14/2023 8:30 PM Erica Sanders RN Level 3 Equipment Use assistive device such as cane/walker 07/15/2023 8:47 AM Precious Cantor RN * Question Answer Date of Assessment Author 1. Has the patient self-reported, presented with clinical signs of, or have a documented history of any of the following within the past 30 days? No 07/09/2023 2:10 PM PSYCHOLOGY PHYSICIAN Napoleon Juan, BARBRA * Question Answer Date of Assessment Author Is the patient being treated today because it is known or suspected that they prepared, started, or tried to end their life? No 07/09/2023 2:10 PM Napoleon Montana, BARBRA * Question Answer Date of Assessment Author 1. In the past month, have y ou wished you were or that you could go to sleep and not wake up? No 07/09/2023 2:10 PM Napoleon Montana RN 2. In the past month, have y ou actually had any thoughts of killing yourself? No 07/09/2023 2:10 PM Napoleon Montana RN 6. Have you ever done anythi ng, started to do anything, or prepared to do anything to end your life? No 07/09/2023 2:10 PM Napoleon Montana RN * Suicide Risk Level Answer Date of Assessment Author No risk level 07/09/2023 2:10 PM Abilio Montana RN * Self-Injurious Risk Level Answer Date of Assessment Author No risk level 07/09/2023 2:10 PM Abilio Montana RN * Pressure Injury Prevention Question Answer Date of Assessment Author Pressure Ulcer Prevention Interventions Keep skin clean and dry (Sensory Perception/Moisture ) 07/15/2023 8:47 AM PSYCHOLOGY PHYSICIAN Precious Sharma RN 2 Nurse Skin Assessment Kristofer 01/2024 7:07 AM PSYCHOLOGY PHYSICIAN Samara Neri RN Protective Foam Dressing Location Coccyx 07/11/2023 8:30 PM PSYCHOLOGY PHYSICIAN Nona Herndon RN * Transdermal Patch Assessment on Admission Answer Date of Assessment Author Not Present 07/09/2023 4:17 PM Abilio Montana RN * AUDIT-C Score Answer Date of Assessment Author 5 07/08/2023 12:54 PM Barb Clemons RN * Alcohol Use Question Answer Date of Assessment Author Q1: How often do you have a drink containing alcohol? 2-3 times a week 07/08/2023 12:54 PM Barb Clemons RN Q2: How many drinks containing alcohol do you have on a typical day when you are drinking? 3 or 4 07/08/2023 12:54 PM Barb Clemons RN Q3: How often do you have six or more drinks on one occasion? Less than monthly 07/08/2023 12:54 PM Barb Clemons RN * Integumentary Question Answer Date of Assessment Author Skin Color Appropriate for ethnicity 07/19/2023 3:07 PM Olga Etienne RN Skin Condition/Temp Hot;Swollen 07/19/2023 3 :07 PM Olga Etienne RN Skin Integrity Weeping;Surgical incision 07/19/2023 3:07 PM Olga Etienne RN Integumentary (WDL) X 07/19/2023 3 :07 PM Olga Etienne RN Skin Pertinent Negatives Dry 024 3:07 PM Olga Etienne RN Skin Location patient has hot red, swelling to BL lower extremities and groin area. Also redness swelling and drainage to surgical incision on the backside. dressing intact. 07/19/2023 3:07 PM Olga Etienne RN * Fall Risk Assessment Tool - MEDFRAT Question Answer Date of Assessment Author Prior Fall Event (Autopopulated from EMR) None found 07/19/2023 11:28 AM Felipe Anand RN History of falling in last 3 months, including since admission 0 07/19/2023 11:28 AM Hima Anand RN Confusion or disorientation 0 07/19/2023 11 :28 AM Hima Anand RN Intoxicated or sedated 0 07/19/2023 11:28 A M Hima Anand RN Impaired gait 0 07/19/2023 11:28 AM Hima Ochoa Alc, RN Mobility assist device used 0 07/19/2023 11 :28 AM Hima Anand RN Altered elimination 0 07/19/2023 11:28 AM C Hima Hernandez RN Fall risk score: (1-2 low risk), (3-4 moderate risk), (5 or more high risk) 1 07/19/2023 11:28 AM Christian Anand RN * Integumentary Question Answer Date of Assessment Author Skin Turgor Non-tenting 07/15/2023 8:47 AM Precious Cantor RN Integumentary Additional Assessments Yes-Jose Antonio 07/14/2023 8:34 AM PSYCHOLOGY PHYSICIAN Ellen Dubois, RN Integumentary (WDL) X 07/15/2023 8:47 AM CS Precious Car RN * Wound (LDAs) Question Answer Date of Assessment Author Type of Wound (LDA) Surgical site 07/14/2023 8:30 PM Erica Yusuf, BARBRA * Jose Antonio Scale Question Answer Date of Assessment Author Jose Antonio Scale Used Jose Antonio 07/11/2023 7:30 PM PSYCHOLOGY PHYSICIAN Hunter Burger RN * Question Answer Date of Assessment Author BP Location Right arm 07/15/2023 4:00 PM PSYCHOLOGY PHYSICIAN Basilio Reyes BP Method Automatic 07/15/2023 4:00 PM PSYCHOLOGY PHYSICIAN Basilio Reyes * Question Answer Date of Assessment Author Diet Supplement Name/Percent Consumed % 100 07/12/2023 5:00 PM Brianna June RN * Fall Risk Interventions Question Answer Date of Assessment Author All Low Fall Interventions Applied Yes 07/15/2023 8:47 AM Precious Cantor RN All Low Fall Interventions EXCEPT: Provide fall prevention education;Bed in lowest position;Wheels locked;Call light in reach;Encourage to call for assistance;Non-skid footwear/socks 07/13/2023 7:50 AM Trey Oconnor RN All Moderate Fall Interventions Applied Yes 07/15/2023 8:47 AM Precious Cantor RN All Moderate Fall Risk Interventions EXCEPT: Fall risk sign with education;Gait belt at bedside;PT eval requested or obtained;OT eval requested or obtained 07/09/2023 5:30 AM Sammy Miller, BARBRA All High Fall Risk Interventions Applied Yes 07/15/2023 8:47 AM Precious Cantor RN All High Risk Interventions EXCEPT: Bed alarm;Chair alarm;Near RN station/area;Fall risk sign with education 07/09/2023 5:30 AM Sammy Miller, BARBRA Additional Interventions Applied Bed/chair alarm 07/14/2023 8:30 PM Erica Sanders, BARBRA Reason For Exception(s) periop 07/09/19 5:30 AM Sammy Miller, BARBRA Reason For Exception(s) periop 07/09/19 5:30 AM Sammy Miller, BARBRA Reason For Exception(s) periop 07/09/19 5:30 AM Sammy Miller, BARBRA * ADL Screening Question Answer Date of Assessment Author Patient's Vision Adequate to Safely Complete Daily Activities Yes 07/09/2023 4:17 PM Napoleon Montana RN Patient's Judgement Adequate to Safely Complete Daily Activities Yes 07/09/2023 4:17 PM Neil Montana RN Patient's Memory Adequate to Safely Complete Daily Activities Yes 07/09/2023 4:17 PM Napoleon Montana RN Patient Able to Express Needs/Desires Yes 07/09/2023 4:17 PM Napoleon Montana RN Dressing Independent 07/09/2023 4:17 PM Napoleon Carson RN Grooming Independent 07/09/2023 4:17 PM Napoleon Carson RN Feeding Independent 07/09/2023 4:17 PM Napoleon Carson RN Bathing Independent 07/09/2023 4:17 PM Napoleon Carson RN Toileting Independent 07/09/2023 4:17 PM Napoleon Carson RN In/Out Bed Independent 07/09/2023 4:17 PM Napoleon Carson RN Walks in Home Needs assistance 07/09/2023 4:17 PM Napoleon Montana RN Weakness of Legs None 07/09/2023 4:17 PM Napoleon Kapadia RN Weakness of Arms/Hands None 07/09/2023 4:17 PM Napoleon Montana RN Hearing - Right Ear Functional 07/09/2023 4:17 PM CS T Napoleon Juan RN Hearing - Left Ear Functional 07/09/2023 4:17 PM Napoleon Montana RN Dominant hand? Right 07/09/2023 4:17 PM PSYCHOLOGY PHYSICIAN Napoleon Cnao RN Decline in ADLs in last 2 weeks? No 07/09/2023 4:17 PM Napoleon Montana RN * Therapy Consults Question Answer Date of Assessment Author PT Evaluation Needed 1 07/09/2023 4:17 PM Napoleon Ware RN OT Evaluation Needed 1 07/09/2023 4:17 PM Napoleon Ware RN ELECTRIC DEICER INSPECTOR Evaluation Needed 2 07/09/2023 4:17 PM Napoleon Montana RN * Assistive Devices Question Answer Date of Assessment Author Assistive Devices/DME Cane;Walker 07/09/2023 4:17 PM Napoleon Montana RN * Question Answer Date of Assessment Author RLE Edema +2 07/19/2023 3:34 PM Olga Domínguez RN LLE Edema +2 07/19/2023 3:34 PM Olga Domínguez RN Edema Left lower extremity ;Right lower extremity 07/19/2023 3:34 PM Olga Etienne RN * Speech/Swallow Screening Question Answer Date of Assessment Author Currently, does patient have difficulty swallowing; coughing/choking while swallowing, or feels like food is sticking No 07/09/2023 4:17 PM Napoleon Montana RN In the past two weeks has the patient had changes in speaking or ability to comprehend conversation No 07/09/2023 4:17 PM Napoleon Montana RN Currently, does patient require thickened liquids or dysphagia diet No 07/09/2023 4:17 PM Napoleon Montana RN Patient is in need of ELECTRIC DEICER INSPECTOR Order: No ELECTRIC DEICER INSPECTOR order needed from this assessment 07/09/2023 4:17 PM Napoleon Montana RN * Question Answer Date of Assessment Author Bed In Lowest Position Yes 07/15/2023 2:30 AM Meng Ashley Bed Wheels Locked Yes 07/15/2023 2:30 AM Meng Ashley * Hygiene Question Answer Date of Assessment Author Hygiene Skin cleanser 07/13/2023 10:17 AM Amauri Graf Oral Care Mouth rinsed 07/13/2023 10:17 AM PSYCHOLOGY PHYSICIAN Amauri Balderas Hygiene Level of Assistance Moderate assist 07/14/2023 3:00 PM PSYCHOLOGY PHYSICIAN Oleksandr, Evans Toileting: Assistance with Bedside commode 07/15/2023 10:45 AM Precious Cantor RN Reason not bathed/showered with chlorhexidine gluconate (CHG) Contraindicated: chlorhexidine gluconate (CHG) allergy 07/14/2023 3:00 PM Evans Barajas Toileting: Level of assistance Maximal 07/15/2023 10:45 AM Precious Cantor RN Perineal Care Lena Care 07/15/2023 2:30 AM Meng Ashley Linens Complete linen change 07/15/2023 1:54 PM Porsha Menjivar RN Bath Bathed/showered non- chg (CHG not indicated OR not required here) 07/15/2023 2:30 AM Meng Ashley documented as of this encounter Mental Status * Question Answer Entry Date Author Level of Consciousness Alert;Awake 3:05 PM Olga Etienne RN Orientation Oriented X4 (person, place, time, situation) 07/19/2023 3:05 PM Olga Etienne RN Neuro ([facility]) X 07/19/2023 3:05 PM Olga Etienne RN * Question Answer Entry Date Author Neuro (WD) X 07/15/2023 11:35 AM Precious Cantor RN Other Neuro Symptoms Fatigue;Forgetful 07/15/2023 11:3 5 AM Precious Cantor RN * Short Blessed Test Question Answer Entry Date Author What year is it now? 0 07/13/2023 9:20 AM Mickie Wetzel OT What month is it now? 0 07/13/2023 9:20 AM Mickie Wetzel OT Without looking at the clock, tell me what time it is 0 07/13/2023 9:20 AM Mickie Wetzel OT Count aloud backwards from 20-1 0 07/13/2023 9:20 AM Mickie Wetzel OT Say the months of the year backwards in reverse order 0 07/13/2023 9:20 AM Mickie Wetzel OT Repeat the name and address I asked you to remember 2 07/13/2023 9:20 AM Mickie Wetzel OT Repeat this name and address after me Wilner Ward [address] [place] [address] 07/13/2023 9:20 AM Mickie Wetzel OT Short Blessed Total Score 2 07/13/2023 9:20 AM Mickie Wetzel OT Short Blessed Comments WFL 9:20 AM Mickie Wetzel OT documented in this encounter Plan of Treatment Not on file documented as of this encounter Procedures Procedure Name Priority Date/Time Associated Diagnosis Comments XR SHOULDER RIGHT 2 OR MORE VIEWS Schedule Routine, Read Routine (OP Routine) 03/21/2023 2:10 PM CDT Aftercare following right shoulder joint replacement surgery documented in this encounter Results * XR Shoulder Right 2 or More Views (03/21/2023 2:10 PM CDT) Anatomical Region Laterality Modality Upper Extremities, Shoulder Right Digi rita Radiography Narrative 03/21/2023 2:18 PM CDT X-rays reviewed and interpreted by myself and in my opinion, demonstrate no acute fractures, subluxations or destructive lesions. Status post reverse total shoulder changes with implants in acceptable position. Quinn Cantu [facility] IMG XR PROCEDURES Final Result documented in this encounter Visit Diagnoses Not on filedocumented in this encounter Additional Health Concerns Infection Onset Date Last Indicated Resolved Time COVID: Suspected 07/19/2023 07/19/2023 07/19/2023 7:52 PM PSYCHOLOGY PHYSICIAN documented as of this encounter Care Teams Retail Banking Manager Relationship Specialty Start Date End Date Warren Figueroa MD [address] [place] [address] [address] [place] [address] PCP - General Family Practice 12/19/22 12/24/23 Den Erickson MD [address] [facility] [address] [place] [address] Surgeon Orthopedic Surgery 06/11/19 Alexandrea Sunshine PA [address] [facility] [address] [place] [address] Physician Student Nurse Orthopedic Surgery 01/25/23 documented as of this encounter
--- NOTE | ~2025-04-30 | XR_ITS ---
EXAMINATION: XR chest 2V, 04/30/2025 13:15 [facility]REL S[facility]ER HISTORY: R06.00 - Dyspnea, unspecified COMPARISON: No comparisons available. Technique: 2 views obtained. Findings: The lungs are clear, no effusion. No pneumothorax. Heart is normal size. Mediastinal and hilar contours are within normal limits. Bony thorax no acute abnormality. Impression: No acute cardiopulmonary abnormality. Reviewed, dictated and finalized at location P. EL SCRAPER Impression: No acute cardiopulmonary abnormality.
--- OUTSIDE RECORDS SUMMARY | 2025-04-30 13:05 | XMS_ITS | Clinical Summary ---
Author Organization [facility] [employer] Address [address] [facility] [place] [address] Care Team Providers Care Ballistics Expert Forensic Name Role Phone Carlos Alcala DO Primary Care Provider [phone] Source Comments [facility] [employer],non-owned Affiliates and Associated Physician Practices is amultiple site organization consisting of ambulatory clinics and hospital sitesin [place], [place], [place] and [place]. This disclosure is being madepursuant to the Care Everywhere program and may not contain all information available regarding this patient. Last updated 18.[facility] [employer] Allergies No known active allergies Medications * [...] Comments Blood Pressure 134/67 04/08/2020 11:45 AM WEB DEVELOPMENT MANAGER Pulse 65 04/08/2020 11:45 AM WEB DEVELOPMENT MANAGER Temperature 37.2 C (98.9 F) 04/08/2020 8:22 AM WEB DEVELOPMENT MANAGER Respiratory Rate 17 04/08/2020 11:45 AM WEB DEVELOPMENT MANAGER Oxygen Saturation 97% 04/08/2020 11:45 AM WEB DEVELOPMENT MANAGER Inhaled Oxygen Concentration - - Weight 59 kg (130 lb) 04/08/2020 7:50 AM WEB DEVELOPMENT MANAGER Height 166.4 cm (5' 5.5) 04/08/2020 7:50 AM WEB DEVELOPMENT MANAGER Body Mass Index 21.3 04/08/2020 7:50 AM WEB DEVELOPMENT MANAGER Plan of Treatment Health Maintenance Due Date [...] 2) 2007 DEPRESSION SCREENING 06/03/2024 COVID-19 VACCINE (2024- season) 2025 INFLUENZA VACCINE (#1) 2025 0, 05/30/2018, 04/08/2017, Additional history exists Respiratory Syncytial [...] to complete this topic Insurance MEDICARE MEDICARE [facility] MEDICARE [facility] MEDICARE [facility] Care Teams Ballistics Expert Forensic Relationship Specialty Start Date End Date Carlos Alcala DO [address] [place] [id number] PCP - General 01/10/22
--- OUTSIDE RECORDS SUMMARY | 2025-04-30 13:05 | XMS_ITS | Encounter Summary ---
Author Organization [facility] Address [address] [place] [address] Care Team Providers Care Supervisor Vacuum Metalizing Name Role Phone Carlos Alcala DO Primary Care Provider [phone] Encounter Details Date Type Department Care Team (Late st Contact Info) Description 10/19/2020 Lab Requisition [facility] D[facility] [address] [facility] [place] [address] Billy Mccullough MD [address] [place] [address] Social History Tobacco Use Types [...] AM CDT) Case Report Dermatopathology Report Case: [id number] Authorizing Provider: Billy Mccullough MD Collected: 10/18/2020 12:00 AM Ordering Location: [facility] Derm[facility] Lab Received: 10/19/2020 01:45 PM [...] specimen consists of a shave biopsy measuring 78x24x5dq. Jar 0. 5:17 PM CDT DERMATOPATHOLOGY LABORATORY [...] characteristic determined by the Dermatopathology Laboratory at [facility], directed by Dr. James Rasmussen. These tests need not be, and therefore are not, approved by the [place] Food and Drug Administration. The tests are used for clinical purposes. Billing Codes Specimen Charges Stain Charges 29481 1 5:17 PM CDT DERMATOPATHOLOGY LABORATORY Embedded Images 5:17 PM CDT DERMATOPATHOLOGY LABORATORY Pathology/Cytolog y TISSUE SPECIMEN FROM SKIN / Unknown 10/18/2020 10/19/2020 1:45 PM CDT us Billy Mccullough MD LAB - PATHOLOGY/CYTOLOGY ORD ERABLES Final Result DERMATOPATHOLOGY LABORATORY [facility] - Department of Dermatology [facility] Specialized Medicine [address] [place] [address], [address] [phone] documented in this encounter Visit Diagnoses Not on filedocumented in this encounter Care Teams Supervisor Vacuum Metalizing Relationship Specialty Start Date End Date Carlos Alcala DO [address] [place] [address] PCP - General 01/10/22 documented as of this encounter
--- OUTSIDE RECORDS SUMMARY | 2025-04-30 13:05 | XMS_ITS | Clinical Summary ---
Author Organization [facility] Maggi Esquivelelizabeth Address [address] [place] [address] Care Team Providers Care Botany Laboratory Assistant Name Role Phone Carlos Alcala Primary Care Provider [phone] Allergies Active Allergy Reactions Criticality Noted Date Comments Chlorhexidine Itching Medium 07/11/2023 Medications FISH HUY-[id number]-9-VIT C-VIT E ORAL Take by mouth. Ac [...] Encounters Date Type Department Care Team Description 04/20/2025 External Device Data STL ABSTRACTION Provider, Abstract 03/31/2025 External Device Data STL ABSTRACTION Provider, Abstract 03/30/2025 External Device Data STL ABSTRACTION Provider, Abstract 03/24/2025 External Device Data STL ABSTRACTION Provider, Abstract 03/23/2025 External Device Data STL ABSTRACTION Provider, Abstract 02/16/2025 External Device Data STL ABSTRACTION Provider, Abstract 02/09/2025 External Device Data STL ABSTRACTION Provider, [...] st Contact Info) Description 07/02/2025 10:15 AM SURTASS ANALYST Office Visit [facility] Oncology and Hematology - [place] [address] [address] [place] [address] Elia Escobedo MD [address] [facility] [address] [place] [address] Health Maintenance Due Date Last Done Comments DTAP/TDAP/TD VACCINES (1 - Tdap) 1976 COLORECTAL SCREENING 2002 Colorectal Cancer Screening 2002 FIT-DNA Q 3 years 2002 FIT/FOBT Q 1 year 2002 Flex Sig/CT Colonography Q 5 years 2002 RSV VACCINE (60+ or ) (1 - Risk 50-74 years 1-dose series) 2007 ZOSTER VACCINE (1 of 2) 2007 INFLUENZA VACCINE (#1) 2025 , 06/05/2019, 05/30/2018, Additional history exists BREAST CANCER SCREENING 04/28/2025 04/28/20 24, 04/28/2024, 10/18/2022, Additional history exists OSTEOPOROSIS SCREENING 03/27/2028 03/27/2023, 2022 PNEUMOCOCCAL VACCINE 50+ YEARS Completed 2022 , 07/15/2016 Insurance MEDICARE [employer] [place] [employer] Care Teams Botany Laboratory Assistant Relationship Specialty Start Date End Date Carlos Alcala DO [address] [facility] [address] [facility] [address] [place] [address] PCP - General Internal Medicine 12/30/24
--- OUTSIDE RECORDS SUMMARY | 2025-04-30 13:05 | XMS_ITS | Clinical Summary ---
Author Organization [facility] [address] [facility] Address [address] [place] [address] Care Team Providers Care Gl Accountant Name Role Phone Den Erickson MD Unavailable [phone] Alexandrea Sunshine Unavailable [phone] Carlos Alcala DO Primary Care Provider [phone] Allergies Active Allergy Reactions Criticality Noted Date [...] 1 tablet (20 mEq total) by mouth airport operations officer before breakfast 3 Active LORazepam (ATIVAN) 0.5 [...] 07/12/2023 Assessment & Plan (07/14/2023 11:54 AM [facility]): - EKG and tele showing new onset [...] right rotator cuff 10/14/19 20 Discharge from [facility] 04/14/2014 Resolved Problems Problem Noted Date Diagnosed Date Resolved Date Traumatic rotator cuff tear, right, initial encounter 06/08/2019 10/14/2019 Overview (06/08/2019): Added automatically from request for surgery [id number] Arthritis of right acromioclavicular joint 06/08/2019 10/14/2019 Overview (06/08/2019): Added automatically from request for surgery [id number] 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 06/08/2019 10/14/2019 Overview (06/08/2019): Added automatically from request for surgery [id number] Impingement syndrome of right shoulder 06/08/2019 10/14/2019 Overview (06/08/2019): Added automatically from request for surgery [id number] Immunizations Immunization Administration Dates Next Due Influenza, [...] on file Legal Sex Female 12:44 AM [facility] Gender Identity Not on file Sexual Orientation Not on file Last Filed Vital Signs Vital Sign Reading Time Taken Comments Blood Pressure 162/74 06/16/2024 1:28 PM [facility] Pulse 96 06/16/2024 1:28 PM [facility] Temperature 36.6 C (97.8 F) 07/19/2023 11:29 AM [facility] Respiratory Rate 15 07/20/2023 8:30 AM [facility] Oxygen Saturation 98% 07/20/2023 8:30 AM [facility] Inhaled Oxygen Concentration - - Weight 62.1 kg (137 lb) 06/16/2024 1:28 PM [facility] Height 160 cm (5' 3) 06/16/2024 1:28 PM [facility] Body Mass Index 24.27 06/16/2024 1:28 PM [facility] Plan of Treatment Health Maintenance Due Date [...] 03/27/2023, 03/27/2023 Medical Devices Implanted Type Area Leather Tanner Device Identifier Shelf Expiration Date Model / Serial / Lot Arthrex Inc Ar-3633 Arthrex Fibertak Tape 3 Load Rotator Cuff [place] Suture Sterile Latex Free - [id number] Implanted:Qty: 1 on 06/11/2019 by Den Erickson MD at [facility] Right: Shoulder [employer] Inc 03/02/2024 AR-3633 / / [id number] Ar[employer]rex Inc Ar-2324bcc Swivelock C 4.75mm 19.1mm Closed Eyelet Vent [place] Suture - [id number] Implanted:Qty: 1 on 06/11/2019 by Den Erickson MD at [facility] Right: Shoulder [employer]rex Inc 04/02/2021 AR-2324BCC / / [id number] Arthrex Inc Arthrex Univers Revers Shoulder 7 Stem Humeral Sterile Ar-9501-07p - [id number] Implanted:Qty: 1 on 01/24/2023 by Den Erickson MD at [facility] Right: Shoulder [employer] Inc [id number] 03/02/2027 AR-9501-07 P / / [id number] Arthrex Inc Baseplate 24mm 10 Deg Full Augment Oblique Zx-1959-1610 - [id number] Implanted:Qty: 1 on 01/24/2023 by Den Erickson MD at [facility] Right: Shoulder [employer] Inc [id number] 10/01/2027 AR-9580-24 10 / / [id number] Arthrex Inc Component Glenoid Modular Post Reverse 20mm Ar-9582-20 - [id number] Implanted:Qty: 1 on 01/24/2023 by Den Erickson MD at [facility] Right: Shoulder [employer] Inc [id number] 08/01/2027 AR-9582-20 / / [id number] Arthrex Inc 36mm 24 Baseplate Taper Sphere Glenoid Aw-0262-6360 - [id number] Implanted:Qty: 1 on 01/24/2023 by Den Erickson MD at [facility] Right: Shoulder [employer]rex Inc [id number] 04/02/2026 AR-9564-24 36 / / [id number] Arthrex Inc 5.5mm 24mm Lock Modular Glenoid Screw Bone Ar-9563-24 - [id number] Implanted:Qty: 1 on 01/24/2023 by Den Erickson MD at [facility] Right: Shoulder [employer] Inc [id number] 10/01/2027 AR-9563-24 / / [id number] Arthrex Inc 5.5mm 36mm Lock Peripheral Screw Bone Sterile Ar-9563-36 - [id number] Implanted:Qty: 1 on 01/24/2023 by Den Erickson MD at [facility] Right: Shoulder [employer] Inc [id number] 08/01/2027 AR-9563-36 / / [id number] Arthrex Inc Insert Humeral Combo Reverse Poly Univers Revers +3x33mm Tm-5873-3918-3 - [id number] Implanted:Qty: 1 on 01/24/2023 by Den Erickson MD at [facility] Right: Shoulder [employer] Inc [id number] 01/31/2027 AR-9503-33 36-3 / / [id number] Arthrex Inc Implant Suture Cup Humeral Reverse Right Univers Revers +2x33mm Titanium [id number] - [id number] Implanted:Qty: 1 on 01/24/2023 by Den Erikcson MD at [facility] Right: Shoulder [employer]rex Inc [id number] 04/02/2027 AR-9502F-3 3RCPC / / [id number] Allosource Crushed Fresh Frozen Cancellous 1-4mm Graft 15ml Bone [id number] - [id number] Implanted:Qty: 1 on 07/09/2023 by Mulugeta Navarrete MD at [facility] Spine Lumbar Allosource 11/21/2027 [id number] / / [id number] Medtronic Inc Kit Graft Bone Sponge Xlg Infuse 8cc Granules [id number] - [id number] Implanted:Qty: 1 on 07/09/2023 by Mulugeta Navarrete MD at [facility] N/A: Spine Lumbar Medtronic Inc [id number] 12/01/2024 6217951 / / [id number] [place]ola Spine Graft Bone Filler Gel Bio Dbm 10cc 9043195 - [id number] Implanted:Qty: 1 on 07/09/2023 by Mulugeta Navarrete MD at [facility] N/A: Spine Lumbar [place] Spine [id number] 01/03/2026 8624313 / / [id number] Spineart [facility] Inc Screw Spn Pedicle Sld 5x25mm Sjt-Ls 50 25-S - [id number] Implanted:Qty: 1 on 07/09/2023 by Mulugeta Navarrete MD at [facility] N/A: Spine Lumbar SPINEART [employer] INC [id number] 12/07/2029 SJT-LS 50 25-S / / [id number] Spineart [place] Inc Cage Secured Lumbar Anterior Small Lordosis 15deg 10 Mm Sca-Ls 15 10-S - [id number] Implanted:Qty: 1 on 07/09/2023 by Mulugeta Navarrete MD at [facility] N/A: Spine Lumbar [employer]INE[employer] INC 01/07/2027 SCA-LS 15 10-S / / [id number] Spineart [place] Inc Screw Spn Pedicle Sld 5x25mm Sjt-Ls 50 25-S - [id number] Implanted:Qty: 1 on 07/09/2023 by Mulugeta Navarrete MD at [facility] N/A: Spine Lumbar [employer] INC [id number] 02/28/2031 SJT-LS 50 25-S / / [id number] Medtronic Inc Kit Graft Bone Sponge Xlg Infuse 8cc Granules 1695162 - [id number] Implanted:Qty: 2 on 07/11/2023 by Mulugeta Navarrete MD at [facility] N/A: Spine Thoracic Medtronic Inc 12/01/2024 [id number] / / Viola Spine Graft Bone Filler Gel Bio Dbm 10 5111804 - [id number] Implanted:Qty: 1 on 07/11/2023 by Mulugeta Navarrete MD at [facility] N/A: Spine Thoracic [place] Spine [id number] 11/19/2025 6701174 / / [id number] [place] Spine Graft Bone Filler Gel Bio Dbm 10 3884421 - [id number] Implanted:Qty: 1 on 07/11/2023 by Mulugeta Navarrete MD at [facility] N/A: Spine Thoracic [employer] Spine [id number] 01/03/2026 4322444 / / [id number] [place] Spine Graft Bone Filler Gel Bio Dbm 10 6404667 - [id number] Implanted:Qty: 1 on 07/11/2023 by Mulugeta Navarrete MD at [facility] N/A: Spine Thoracic [place] Spine [id number] 01/03/2026 3051419 / / [id number] Viola Spine Graft Bone Filler Gel Bio Dbm 10 4782234 - [id number] Implanted:Qty: 1 on 07/11/2023 by Mulugeta Navarrete MD at [facility] N/A: Spine Thoracic Viola Spine [id number] 01/03/2026 2684411 / / [id number] [place] Spine Graft Bone Filler Gel Bio Dbm [facility] 8274414 - [id number] Implanted:Qty: 1 on 07/11/2023 by Mulugeta Navarrete MD at [facility] N/A: Spine Thoracic [place] Spine [id number] 01/06/2026 6871970 / / [id number] Viola Spine Graft Bone Filler Gel Bio Dbm 10 7737204 - [id number] Implanted:Qty: 1 on 07/11/2023 by Mulugeta Navarrete MD at [facility] N/A: Spine Thoracic [place] Spine [id number] 01/03/2026 0881444 / / [id number] Allosource Crushed Chip Frozen Graft 30ml Bone Cancellous 24703413 - [id number] Implanted:Qty: 1 on 07/11/2023 by Mulugeta Navarrete MD at [facility] N/A: Spine Thoracic Allosource 08/19/2027 53125405 / / [id number] Allosource Crushed Chip Frozen Graft 90ml Bone Cancellous 21593383 - [id number] Implanted:Qty: 1 on 07/11/2023 by Mulugeta Navarrete MD at [facility] N/A: Spine Thoracic Allosource 10/21/2027 99128479 / / [id number] Viola Spine [place] Spine Screw Set Haney 2901-84336 - [id number] Implanted:Qty: 22 on 07/11/2023 by Mulugeta Navarrete MD at [facility] [place] Spine 2901-1 0001 / / [place] Spine [place] Od5.5 Mm L45 Mm Polyaxial Spine Screw Bone 291110349 - [id number] Implanted:Qty: 5 on 07/11/2023 by Mulugeta Navarrete MD at [facility] Viola Spine 2911-0 5545 / / [place] Spine [place] 6.5mm 30mm Polyaxial Spine Screw Bone Nonsterile 2911-94781 - [id number] Implanted:Qty: 2 on 07/11/2023 by Mulugeta Navarrete MD at [facility] [place] Spine 2911-0 6530 / / [place] Spine [place] Od6.5 Mm L40 Mm Polyaxial Spine Screw Bone 2911-64165 - [id number] Implanted:Qty: 2 on 07/11/2023 by Mulugeta Navarrete MD at [facility] Viola Spine 2911-0 6540 / / Viola Spine [place] Od6.5 Mm L45 Mm Polyaxial Spine Screw Bone 2911-51267 - [id number] Implanted:Qty: 6 on 07/11/2023 by Mulugeta Navarrete MD at [facility] [place]ola Spine 2911-0 6545 / / [place] Spine [place] Od6.5 Mm L60 Mm Polyaxial Spine Screw Bone Green 2911-07447 - [id number] Implanted:Qty: 1 on 07/11/2023 by Mulugeta Navarrete MD at [facility] [place] Spine 2911-0 6560 / / Viola Spine Screw 8.5 Mm Polyaxial - 70 Mm 2911-15166 - [id number] Implanted:Qty: 1 on 07/11/2023 by Mulugeta Navarrete MD at [facility] [place] Spine 2911-0 8570 / / Viola Spine Od8.5 Mm L80 Mm Polyaxial Spine Screw Bone Green 2911-76699 - [id number] Implanted:Qty: 1 on 07/11/2023 by Mulugeta Navarrete MD at [facility] [place] Spine 2911-0 8580 / / [place] Spine Connector Spinal Lateral Thoracolumbar Open Adjustable Offset [place] 25mm 2901-15836 - [id number] Implanted:Qty: 1 on 07/11/2023 by Mulugeta Navarrete MD at [facility] [place] Spine 2901-7 5525 / / [place] Spine [place] 35mm Lateral Offset Spine Connector Oswald Nonsterile Latex 2901-43614 - [id number] Implanted:Qty: 3 on 07/11/2023 by Mulugeta Navarrete MD at [facility] [place]ola Spine 2901-7 5535 / / [place] Spine L500 Mm Hexagonal End Oswald Spinal Titanium Alloy 101-J76520 - [id number] Implanted:Qty: 2 on 07/11/2023 by Mulugeta Navarrete MD at [facility] [place] Spine 101-A5 5500 / / Procedures Procedure [...] Bone mineral density was performed on a [employer] Densitometer. Based on machine cross-calibration and [...] by the International Society of Clinical Densitometry. [id number] Mulugeta Navarrete MD Micha DXA PROCEDURES F inal Result from Last 3 Months or Most Recently Relevant to Health Maintenance Insurance MEDICARE [employer] [place] [employer]ICARE [employer] [place] MEDICARE [employer] [facility] Advance Directives For more information, please contact: [phone] Documents on File Type Date Recorded Patient Electric Organ Assembler And Checker Expl anation ADVANCE DIRECTIVE 07/10/2023 3:54 PM POWER OF MACHINE FEED OPERATOR-MEDICAL ADVANCE DIRECTIVE 07/10/2023 3:30 PM POWER OF MACHINE FEED OPERATOR-MEDICAL * Full Code (Latest Code Status on File) Date Activated Date Inactivated Comments 07/09/2023 2:12 PM 07/15/2023 8:53 PM * Full Code Date Activated Date Inactivated Comments 07/08/2023 12:52 PM 07/09/2023 5:13 AM * Full Code Date Activated Date Inactivated Comments 01/24/2023 2:35 PM 01/25/2023 7:43 PM Healthcare Agents on File Name Relationship Healthcare Agent [facility] Communication [place] Sheldon Spouse Health Care Agent Sheldon Abimael Daughter [facility] C are Agent Care Teams Gl Accountant Relationship Specialty Start Date End Date Fredrick DO Carlos [address] [facility] [address] [place] [address] PCP - General Internal Medicine 12/25/23 Den Erickson MD [address] [facility] [address] [address] [place] [address] Surgeon Orthopedic Surgery 06/11/19 Alexandrea Sunshine PA [address] [facility] [address] [address] [place] [address] Physician Supervisor Stitching Department Orthopedic Surgery 01/25/23
--- OUTSIDE RECORDS SUMMARY | 2025-04-30 13:05 | XMS_ITS | Clinical Summary ---
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 Active simethicone (MYLICON) 80 MG chewable tablet Chew 1 tablet (80 mg total) by mouth every 6 (six) hours as needed for Flatulence. 5 Active lidocaine 4 % patch Place 1 patch onto the skin daily. Remove & Discard patch within 12 hours or as directed by 30 patch 5 Active sodium chloride 1 GM tablet Take 1 tablet (1 g total) by mouth 3 (three) times daily with meals. 90 tablet 5 Active ondansetron (ZOFRAN-ODT) 4 MG disintegrating tablet Take 1 tablet (4 mg total) by mouth every 6 (six) hours as needed for Nausea. 20 tablet 5 Active Active Problems Problem Noted Date Diagnosed Date Hyponatremia 10/08/2024 Lactic acidosis 02/27/2024 Primary hypertension 08/28/2023 Gastroesophageal reflux disease without esophagi tis 08/28/2023 Anxiety 08/28/2023 S/P lumbar fusion 08/28/2023 Encounters Date Type Department Care Team Description 03/21/2025 3:47 PM CDT - 03/21/2025 10:49 PM CDT Emergency [facility] Emergency Room [id number] [place] [address] Misty Tamayo MD Dale, Maurice D, Dehydration Discharge Disposition: Home or Self Care (Routine Discharge) 03/21/2025 Travel 02/27/2025 Telephone [facility] Med/Surg [address] [place] [address] Kymberly Garcia I, RN Follow Up Call 02/11/2025 Travel 02/10/2025 6:45 PM CDT - 02/12/2025 1:51 PM CDT Hospital Encounter [facility] Med/Surg [address] [place] [address] Ronald Rutherford MD Ndulue, Jideofor K, MD Harris, Michael, MD Dodt, Abigail Ruelas, MISAEL Vomiting; Diarrhea Discharge Disposition: Home or Self Care (Routine Discharge) 02/10/2025 Travel from Last 3 Months Family History [...] from your doctor or pharmacy? Never 11/22/2024 [facility] Utilities Answer Date Recorded In the past 12 months has [facility] [employer], gas, oil, or water [employer] threatened to shut off services in your home? No 02/11/2025 Humiliation, Afraid, Rape, and Kick questionnair e Answer Date Recorded Within the last year, have y ou been afraid of your partner or ex-partner? No 02/11/2025 Within the last year, have y ou been humiliated or emotionally abused in other ways by your partner or ex-partner? No Within the last year, have y ou been kicked, hit, slapped, or otherwise physically hurt by your partner or ex-partner? No 02/11/2025 Within the last year, have y ou been raped or forced to have any kind of sexual activity by your partner or ex-partner? No 02/11/2025 Social Connection and Isolation Panel Answer Date Recorded In a typical week, how many times do you talk on the phone with family, friends, or neighbors? More than three times a week 11/22/2024 How often do you get togethe r with friends or relatives? Once a week 11/22/2024 How often do you attend chur ch or alevism services? Never 11/22/2024 Do you belong to any clubs o r organizations such as evangelical groups, unions, fraternal or athletic groups, or school groups? No 11/22/2024 How often do you attend meet ings of the clubs or organizations you belong to? Never 11/22/2024 Are you , , di vorced, , never , or living with a partner? 11/22/2024 AUDIT-C Answer Date Recorded Q1: How often do you have a drink containing alc ohol? 2-3 times a week 02/11/2025 Q2: How many drinks containi ng alcohol do you have on a typical day when you are drinking? 5 or 6 02/11/2025 Q3: How often do you have si x or more drinks on one occasion? Weekly 02/11/2025 Overall Financial Resource Strain (CARDIA) Answe r Date Recorded How hard is it for you to pa y for the very basics like food, housing, medical care, and heating? Not hard at all 02/11/2025 PHQ-2 Answer Date Recorded Patient Health Questionnaire-2 Score 0 11/22/2024 [facility] - Occupational Stress Questionnaire Answer Date Recorded [...] the money to buy more. Never true 02/12/20 25 Within the past 12 months, t he food you bought just didn't last and you didn't have money to get more. Never true 02/11/2025 PRAPARE - Transportation Answer Date Re corded In the past 12 months, has l ack of transportation kept you from medical appointments or from getting medications? No 02/01 In the past 12 months, has l ack of transportation kept you from meetings, work, or from getting things needed for daily living? No 02/11/2025 Housing Stability Vital Sign Answer Sean e Recorded In the last 12 months, was t here a time when you were not able to pay the mortgage or rent on time? No 02/11/2025 In the past 12 months, how m any times have you moved where you were living? 0 02/11/2025 At any time in the past 12 m [facility], were you homeless or living in a retirement (including now)? No 02/11/2025 Comments No Sex and Gender Information Value Date Recorded Sex Assigned at Female 10/08/2024 11:36 PM CDT Legal Sex Female 5:16 PM CDT Gender Identity Female 10/08/2024 11:36 PM CDT Sexual Orientation Straight 11/22/2024 9: 46 PM CDT Last Filed Vital Signs Vital Sign Reading Time Taken Comments Blood Pressure 156/68 03/21/2025 10:00 PM CDT Pulse 96 03/21/2025 10:25 PM CDT Temperature 36.4 C (97.6 F) 03/21/2025 3:49 PM CDT Respiratory Rate 26 03/21/2025 10:25 PM CDT Oxygen Saturation 99% 03/21/2025 10:25 PM CDT Inhaled Oxygen Concentration - - Weight 63 kg (139 lb) 03/21/2025 3:49 PM CDT Height 154.9 cm (5' 1) 03/21/2025 3:49 PM CDT Body Mass Index 26.26 03/21/2025 3:49 PM CDT Plan of Treatment Health Maintenance Due Date Last Done Comments Colorectal Cancer Screening Colonoscopy (10 Years) 1957 DTaP, Tdap and Td Vaccines (1 - Tdap) 1976 Mammogram Screening 1997 Annual Medicare Wellness Visit 2022 COVID-19 Vaccine ( season) 2025 09/11/2020, 08/12/2020 Influenza Adult (#1) 2025 06/05/2024, 02/01/2023, 03/08/2022, Additional history exists RSV Immunization or 60+ Years (1 - 1-dose 75+ series) 2032 Zoster Vaccines Completed 05/08/2022, 03/08/2022 Dexa Scan (General) Completed 03/27/2023, Pneumococcal Vaccine: 50+ Years Completed 04/28/2023, 2022, 03/15/2022, Additional history exists Hepatitis C Completed 10/09/2024 PHQ-2 (Physician [place]) Completed 11/22/2024 Hepatitis A Vaccines Aged Out No long er eligible based on patient's age to complete this topic Meningococcal B Vaccine Aged Out No l [...] upon discharge from hospital Lifestyle No 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, [employer]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 Procedure Name Priority Date/Time Associated Diagnosis Comments HC URINALYSIS AUTO W/MICRO STAT 03/21/2025 6:[address] ABD+PEL W CON STAT 03/21/2025 5:45 PM CDT HC DRUG SCREEN PRESUMPTIVE INSTRUMENT T4 STAT 03/21/2025 4:10 PM CDT HC LIPASE STAT 03/21/2025 4:10 PM CDT HC MAGNESIUM STAT 03/21/2025 4:10 PM CDT HC COMPREHENSIVE METABOL PANEL STAT 03/21/2025 4:10 PM CDT HC CBC AUTO W/AUTO DIFF STAT 03/21/2025 4:10 PM CDT HC COMPREHENSIVE METABOL PANEL Routine 02/12/2025 6:51 AM CDT HC CBC AUTO W/AUTO DIFF Routine 02/12/2025 6:51 AM CDT HC EIA QL CLOS DIFF TOXIN AG Routine 02/11/2025 6:36 PM CDT HC BASIC METABOLIC PANEL TIMED 02/11/2025 5:50 PM CDT HC BASIC METABOLIC PANEL TIMED 02/11/2025 11:56 AM CDT HC MAGNESIUM Routine 02/11/2025 6:42 AM CDT HC SODIUM STAT 02/11/2025 6:42 AM CDT HC SODIUM STAT 02/11/2025 12:50 AM CDT HC OSMOLALITY URINE STAT 02/10/2025 8 :40 PM CDT HC CREATININE OTH SOURCE STAT 02/10/2025 8:40 PM CDT HC SODIUM URINE STAT 02/10/2025 8:40 PM CDT XR CHEST PORTABLE STAT 02/10/2025 8:[address] ABD+PEL W CON STAT 02/10/2025 8:06 PM CDT HC CULTURE URINE W/COLONY CT Routine 02/10/2025 7:05 PM CDT HC URINALYSIS AUTO W/MICRO STAT 02/10/2025 7:05 PM CDT HC DRUG SCREEN PRESUMPTIVE INSTRUMENT T4 Routine 02/10/2025 6:53 PM CDT HC OSMOLALITY BLOOD STAT 02/10/2025 6 :53 PM CDT HC LIPASE STAT 02/10/2025 6:53 PM CDT HC COMPREHENSIVE METABOL PANEL STAT 02/10/2025 6:53 PM CDT HC CBC AUTO W/AUTO DIFF STAT 02/10/2025 6:53 PM CDT HC QL INFLUENZA A/B STAT 02/10/2025 6 :52 PM CDT CORONAVIRUS (COVID 19) STAT 6:52 PM CDT HEPATITIS PANEL,ACUTE Routine 10/09/2024 1:27 PM CDT from Last 3 Months or Most Recently Relevant to Health Maintenance Results * (ABNORMAL) URINALYSIS, AUTO, COMPLETE (03/21/2025 6:43 PM CDT) Only the most recent of2 resultswithin the time period is included. COLOR (U) YELLOW 03/21/2025 7:05 PM CDT [facility] TRANSPARENCY CLEAR 03/21/2025 7:05 PM CDT [facility] SPECIFIC GRAVITY (U) <1.005 1.000 - 1.030 03/21/2025 7:05 PM CDT [facility] U PH 7.0 5.0 - 9.0 03/21/2025 7:05 PM CDT [facility] LEUKOCYTES (U) NEGATIVE NEGATIVE 03/21/2025 7:05 PM CDT [facility] NITRITES NEGATIVE NEGATIVE 03/21/2025 7:05 PM CDT [facility] PROTEIN RANDOM (U) NEGATIVE NEGATIVE 03/21/2025 7:05 PM CDT [facility] GLUCOSE (U) NEGATIVE NEGATIVE 03/21/2025 7:05 PM CDT [facility] KETONES MG/DL (U) TRACE(A) NEGATIVE 03/21/2025 7:05 PM CDT [facility] BILIRUBIN (U) NEGATIVE NEGATIVE 03/21/2025 7:05 PM CDT [facility] BLOOD (U) NEGATIVE NEGATIVE 03/21/2025 7:05 PM CDT [facility] WBC/HPF 0-5 0 - 5 /HPF 03/21/2025 7:05 PM CDT [facility] RBC/HPF 0-5 0 - 5 /HPF 03/21/2025 7:05 PM CDT [facility] EPI/HPF RARE /HPF 03/21/2025 7:05 PM CDT [facility] URINE SPECIMEN OBTAINED BY CLEAN CATCH PROCEDURE / Unknown 03/21/2025 6:43 PM CDT us Misty Tamayo MD URINE ORDERABLES Final Res ult [facility] [address] [place] [address], * CT ABD+PEL W IV CON ONLY (03/21/2025 5:45 PM CDT) Only the most recent of2 resultswithin the time period is included. Anatomical Region Laterality Modality Abdomen Computed Tomogra phy 03/21/2025 5:52 PM CDT Impressions 03/21/2025 5:53 PM CDT IMPRESSION: 1. No acute findings Ordered By: MISTY TAMAYO Interpreted By: Melvin Saldana MD, 03/21/2025 5:52 PM Narrative 03/21/2025 5:53 PM CDT [facility] [address] [place] [address] CT ABDOMEN AND PELVIS WITH CONTRAST Exam date:03/21/2025 5:34 PM Clinical history: Nausea and vomiting. Technique: Dynamic helical images of the abdomen and pelvis were obtained. The patient received approximately 80 mL of Isovue 370 nonionic intravenous contrast through an IV in the left antecubital fossa. A dose lowering technique was used for this procedure, which may include, but is not limited to, dose reduction technique, automated exposure control, the use of iterative reconstruction, and ALARA (As Low As Reasonably Achievable) / Image Gently techniques. Comparison: February 10, 2025. FINDINGS: Images of the lower thorax demonstrate the visualized portion of the heart to appear normal. The lung bases are clear. Images of the abdomen demonstrate the overall size and morphology of the liver to be within normal limits. No hepatic lesions are observed. No ascites is seen. The gallbladder is present and normally distended. No stones are observed within its lumen and there is no evidence of cholecystitis or biliary obstruction. The pancreas is atrophic but stable. The spleen and adrenal glands are within normal limits. The kidneys exhibit mild renal cortical thinning. No stones or hydronephrosis is present. Images of the pelvis demonstrate the urinary bladder to appear normal. The uterus is surgically absent. The stomach and small bowel have a normal overall appearance. There is no evidence of obstruction. The appendix appears normal. The colon is within normal limits. No adenopathy or abnormal fluid collections are present. Postsurgical changes are noted throughout the lower thoracic and lumbar spine Procedure Note Melvin Saldana MD - 03/21/2025 [facility] [address] [place] [address] CT ABDOMEN AND PELVIS WITH CONTRAST Exam date:03/21/2025 5:34 PM Clinical history: Nausea and vomiting. Technique: Dynamic helical images of the abdomen and pelvis were obtained.The patient received approximately 80 mL of Isovue 370 nonionicintravenous contrast through an IV in the left antecubital fossa. A doselowering technique was used for this procedure, which may include, but isnot limited to, dose reduction technique, automated exposure control, theuse of iterative reconstruction, and ALARA (As Low As ReasonablyAchievable) / Image Gently techniques. Comparison: February 10, 2025. FINDINGS: Images of the lower thorax demonstrate the visualized portion of the heartto appear normal. The lung bases are clear. Images of the abdomen demonstrate the overall size and morphology of theliver to be within normal limits. No hepatic lesions are observed. Noascites is seen. The gallbladder is present and normally distended. Nostones are observed within its lumen and there is no evidence ofcholecystitis or biliary obstruction. The pancreas is atrophic but stable.The spleen and adrenal glands are within normal limits. The kidneysexhibit mild renal cortical thinning. No stones or hydronephrosis ispresent. Images of the pelvis demonstrate the urinary bladder to appear normal. Theuterus is surgically absent. The stomach and small bowel have a normal overall appearance. There is noevidence of obstruction. The appendix appears normal. The colon is withinnormal limits. No adenopathy or abnormal fluid collections are present. Postsurgical changes are noted throughout the lower thoracic and lumbarspine IMPRESSION: 1. No acute findings Ordered By: MISTY TAMAYO Interpreted By: Melvin Saldana MD, 03/21/2025 5:52 PM us Misty Tamayo MD CT Final Resu lt * (ABNORMAL) COMPREHENSIVE METABOLIC PANEL (03/21/2025 4:10 PM CDT) Only the most recent of3 resultswithin the time period is included. GLUCOSE 86 70 - 99 MG/DL 03/21/2025 4:54 PM CDT [facility] BUN 11 7 - 18 MG/DL 03/21/2025 4:54 PM CDT [facility] CREATININE S/P/B 1.00 0.55 - 1.02 MG/DL 03/21/2025 4:54 PM CDT [facility] SODIUM S/P/B 133(L) 136 - 145 MMOL/L 03/21/2025 4:54 PM CDT [facility] POTASSIUM S/P/B 4.5 3.5 - 5.1 MMOL/L 03/21/2025 4:54 PM T [facility] CHLORIDE S/P/B 94(L) 100 - 108 MMOL/L 03/21/2025 4:54 PM [facility] CO2 27.5 21 - 32 MMOL/L 03/21/2025 4:54 PM [facility] CALCIUM S/P/B 8.6 8.5 - 10.1 MG/DL 03/21/2025 4:54 PM [facility] BILIRUBIN TOTAL S/P/B 1.0 0.2 - 1.2 MG/DL 03/21/2025 4:54 PM [facility] TOTAL PROTEIN S/P/B 8.1 6.4 - 8.2 G/DL 03/21/2025 4:54 PM [facility] ALBUMIN S/P/B 4.0 3.4 - 5.0 G/DL 03/21/2025 4:54 PM [facility] AST 66(H) 15 - 37 U/L 03/21/2025 4:54 PM [facility] ALT 30 14 - 55 U/L 03/21/2025 4:54 PM [facility] ALKALINE PHOSPHATASE S/P/B 113 50 - 136 U/L 03/21/2025 4:54 PM [facility] ANION GAP 11.5 5 - 15 MMOL/L 03/21/2025 4:54 PM [facility] BUN CREATININE RATIO 11.0 6 - 26 03/21/2025 4:54 PM [facility] A/G RATIO 1.0 1.0 - 2.0 RATIO 03/21/2025 4:54 PM [facility] GFR ESTIMATE 62(L) >90 ML/MIN/1.7 3 M2 03/21/2025 4:54 PM CDT [facility] Comment: NOTE: eGFR is not calculated for patients <18 years of age. This is an estimated GFR calculation using the new CKD EPI creatinine equation without race and so does not require a correction factor for race. This estimated GFR should not be used for calculating drug doses. 03/21/2025 4:10 PM CDT us Misty Tamayo MD LABORATORY Final Resu lt [facility] [address] [place] [address], [place] [phone] * (ABNORMAL) CBC W/DIFF AUTOMATED (03/21/2025 4:10 PM CDT) Only the most recent of3 resultswithin the time period is included. WBC 6.06 4.4 - 11.0 x10'3/uL 03/21/2025 4:56 PM CDT [facility] RBC 3.68(L) 4.50 - 5.10 x10'6/uL 03/21/2025 4:56 PM CDT [facility] HGB 12.1(L) 12.3 - 15.3 G/DL 03/21/2025 4:56 PM CDT [facility] HCT 34.6(L) 35.9 - 44.6 % 03/21/2025 4:56 PM CDT [facility] MCV 94.0 80.0 - 96.0 FL 03/21/2025 4:56 PM CDT [facility] MCH 32.9(H) 25.3 - 30.9 PG 03/21/2025 4:56 PM CDT [facility] MCHC 35.0(H) 31.0 - 34.1 G/DL 03/21/2025 4:56 PM CDT [facility] RDW 13.5 12.4 - 15.1 % 03/21/2025 4:56 PM CDT [facility] PLT 193 151 - 353 x10'3/uL 03/21/2025 4:56 PM CDT [facility] MPV 9.3(L) 9.6 - 12.0 FL 03/21/2025 4:56 PM CDT [facility] RBC MORPHOLOGY NORMAL 03/21/2025 4:56 PM CDT [facility] PLT MORPH. NORMAL 03/21/2025 4:56 PM CDT [facility] WBC MORPHOLOGY NORMAL 03/21/2025 4:56 PM CDT [facility] LYMPHOCYTES % 8.6(L) 15.8 - 45.0 % 03/21/2025 4:56 PM CDT [facility] NEUTROPHILS % 82.6(H) 42.1 - 71.9 % 03/21/2025 4:56 PM CDT [facility] MONOCYTES % 6.1 5.7 - 12.5 % 03/21/2025 4:56 PM CDT [facility] EOSINOPHILS 1.2 0.0 - 5.6 % 03/21/2025 4:56 PM CDT [facility] BASOPHILS 1.0 0.0 - 1.3 % 03/21/2025 4:56 PM CDT [facility] ABS. NEUTROPHILS 5.01 1.40 - 6.00 x10'3/uL 03/21/2025 4:56 PM CDT [facility] IMMATURE GRANS % 0.5 0.0 - 0.5 % 03/21/2025 4:56 PM CDT [facility] ABS. LYMPHOCYTES 0.52(L) 0.80 - 4.70 x10'3/uL 03/21/2025 4:56 PM CDT [facility] 03/21/2025 4:10 PM CDT us Misty Tamayo MD LABORATORY Final Resu lt Performing Organization Address City/[facility]/ZIP Co de Phone Number [facility] [address] [place] [address], [place] [phone] * (ABNORMAL) MAGNESIUM (03/21/2025 4:10 PM CDT) Only the most recent of2 resultswithin the time period is included. MAGNESIUM 1.3(L) 1.8 - 2.4 MG/DL 03/21/2025 4:54 PM CDT [facility] 03/21/2025 4:10 PM CDT us Misty Tamayo MD LABORATORY Final Resu lt Performing Organization Address [facility] Co de Phone Number [facility] [address] [place] [address], [place] [phone] * LIPASE (03/21/2025 4:10 PM CDT) Only the most recent of2 resultswithin the time period is included. LIPASE 16 16 - 77 UNITS/L 03/21/2025 4:54 PM CDT [facility] 03/21/2025 4:10 PM CDT us Misty Tamayo MD LABORATORY Final Resu lt Performing Organization Address City/[facility]/ZIP Co de Phone Number [facility] [address] [place] [address], [place] [phone] * ETHANOL (03/21/2025 4:10 PM CDT) Only the most recent of2 resultswithin the time period is included. Pathologist [facility] ALCOHOL S/P/B <0.003 <0.003 G/DL 03/21/2025 4:54 PM CDT [facility] 03/21/2025 4:10 PM CDT Misty Tamayo MD LABORATORY Final Resu lt Performing Organization Address [facility] Co de Phone Number [facility] [address] [place] [address], [place] [phone] * CLOSTRIDIUM DIFFICILE (02/11/2025 6:36 PM CDT) [facility] GDH ANTIGEN NEGATIVE NEGATIVE 02/11/2025 7:28 PM CDT [facility] C DIFFICILE TOXIN A&B (STOOL) NEGATIVE NEGATIVE 02/11/2025 7:28 PM CDT [facility] COMMENT GDH NEGATIVE/TOXI N A & B NEGATIVE: NEGATIVE FOR TOXIGENIC C. DIFFICILE. GDH NEGATIVE/TOXI N A & B NEGATIVE: NEGATIVE FOR TOXIGENIC C. 02/11/2025 7:28 PM CDT [facility] STOOL SPECIMEN / Unknown 02/11/2025 6:36 PM CDT Abigail Muniz CLOTH COLORER BODY FLUIDS AND STOOLS ORDERAB LES Final Result Performing Organization Address [facility] Co de Phone Number [facility] [address] [place] [address], [place] [phone] * (ABNORMAL) BASIC METABOLIC PANEL (02/11/2025 5:50 PM CDT) Only the most recent of2 resultswithin the time period is included. [facility] GLUCOSE 133(H) 70 - 99 MG/DL 02/11/2025 6:14 PM CDT [facility] BUN 5(L) 7 - 18 MG/DL 02/11/2025 6:14 PM T [facility] CREATININE S/P/B 0.95 0.55 - 1.02 MG/DL 02/11/2025 6:14 PM [facility] SODIUM S/P/B 127(L) 136 - 145 MMOL/L 02/11/2025 6:14 PM T [facility] POTASSIUM S/P/B 3.9 3.5 - 5.1 MMOL/L 02/11/2025 6:14 PM T [facility] CHLORIDE S/P/B 93(L) 100 - 108 MMOL/L 02/11/2025 6:14 PM [facility] CO2 26.5 21 - 32 MMOL/L 02/11/2025 6:14 PM [facility] CALCIUM S/P/B 8.5 8.5 - 10.1 MG/DL 02/11/2025 6:14 PM T [facility] ANION GAP 7.5 5 - 15 MMOL/L 02/11/2025 6:14 PM [facility] BUN CREATININE RATIO 5.3(L) 6 - 26 02/11/2025 6:14 PM [facility] GFR ESTIMATE 66(L) >90 ML/MIN/1.7 3 M2 02/11/2025 6:14 PM [facility] Comment: NOTE: eGFR is not calculated for patients <18 years of age. This is an estimated GFR calculation using the new CKD EPI creatinine equation without race and so does not require a correction factor for race. This estimated GFR should not be used for calculating drug doses. 02/11/2025 5:50 PM CDT Abigail Muniz APRN LABORATORY Final Result [facility] [address] [place] [address], [place] [phone] * (ABNORMAL) SODIUM, SERUM (02/11/2025 6:42 AM CDT) Only the most recent of2 resultswithin the time period is included. SODIUM S/P/B 127(L) 136 - 145 MMOL/L 02/11/2025 6:58 AM CDT [facility] 02/11/2025 6:42 AM CDT us Ronald Rutherford MD LABORATORY Final Result Performing Organization Address City/[facility]/ZIP Co de Phone Number [facility] [address] [place] [address], [place] [phone] * SODIUM URINE RANDOM (02/10/2025 8:40 PM CDT) NA RANDOM (U) 28 MMOL/L 02/11/2025 11:18 AM CDT [facility] Comment: NOTE: The reference range and other method performance specifications have not been determined for chemistry testing in this type of body fluid. Results should be integrated into clinical context for interpretation. URINE SPECIMEN / Unknown 02/10/2025 8:40 PM CDT us Ronald Rutherford MD URINE ORDERABLES Final Result [facility] [address] [place] [address], [place] [phone] * (ABNORMAL) CREATININE URINE RANDOM (02/10/2025 8:40 PM CDT) CREATININE (U) 5.2(L) 28 - 217 MG/DL 02/10/2025 8:53 PM CDT [facility] URINE SPECIMEN / Unknown 02/10/2025 8:40 PM CDT us Ronald Rutherford MD URINE ORDERABLES Final Result [facility] [address] [facility] [place] [address], [place] [phone] * OSMOLALITY, URINE (02/10/2025 8:40 PM CDT) OSMOLALITY (U) 159 50 - 1,200 MOSM/KG 02/11/2025 10:42 AM CDT [facility] URINE SPECIMEN / Unknown 02/10/2025 8:40 PM CDT us Ronald Rutherford MD URINE ORDERABLES Final Result Performing Organization Address City/[facility] Co de Phone Number [facility] [address] [place] [address], [place] [phone] * XR CHEST PORTABLE (02/10/2025 8:06 PM CDT) Anatomical Region Laterality Modality Chest Radiographic Paige ging 02/10/2025 8:32 PM CDT Impressions 02/10/2025 8:32 PM CDT IMPRESSION: 1. Mild pulmonary vascular congestion with borderline cardiomegaly. 2. No focal airspace consolidation. Referred By: Interpreted By: Mikel Campbell MD, 02/10/2025 8:32 PM Narrative 02/10/2025 8:32 PM CDT [facility] [address] [place] [address] EXAM: XR CHEST PORTABLE INDICATION: URI sx COMPARISON: Chest/abdomen/pelvis CT, 22 Nov 2024 TECHNIQUE: Single frontal radiographic image of the chest FINDINGS: No pneumothorax or pleural effusion. No focal airspace consolidation. Mild pulmonary vascular congestion. Borderline cardiomegaly. Atherosclerotic thoracic aorta. No acute osseous abnormality. Right reverse shoulder arthroplasty. Partially visualized thoracolumbar fusion construct. Procedure Note Mikel Campbell MD - 02/10/2025 [facility] [address] [place] [address] EXAM: XR CHEST PORTABLE INDICATION: URI sx COMPARISON: Chest/abdomen/pelvis CT, 22 Nov 2024 TECHNIQUE: Single frontal radiographic image of the chest FINDINGS: No pneumothorax or pleural effusion. No focal airspace consolidation. Mildpulmonary vascular congestion. Borderline cardiomegaly. Atheroscleroticthoracic aorta. No acute osseous abnormality. Right reverse shoulderarthroplasty. Partially visualized thoracolumbar fusion construct. IMPRESSION: 1. Mild pulmonary vascular congestion with borderline cardiomegaly. 2. No focal airspace consolidation. Referred By: Interpreted By: Mikel Campbell MD, 02/10/2025 8:32 PM Ronald Rutherford MD GENERAL IMAGING Final Result * (ABNORMAL) URINE BACTERIA CULTURE (02/10/2025 7:05 PM CDT) SPEC DESCRIPTION URINE CLEAN CATCH 02/10/2025 8:31 PM CDT [facility] SPECIAL REQUESTS NO SPECIAL REQUEST 02/10/2025 8:31 PM CDT [facility] CULTURE RESULT >100,000 COL/ML KLEBSIELLA PNEUMONIAE (A) 02/13/2025 7:20 AM CDT [facility] CULTURE RESULT 10,000-49,000 COL/ML ENTEROCOCCUS SPECIES (A) 02/13/2025 7:20 AM CDT [facility] URINE SPECIMEN OBTAINED BY CLEAN CATCH PROCEDURE / Unknown 02/10/2025 7:05 PM CDT 02/10/2025 8:46 PM CDT Narrative Organism Antibiotic Method Susceptibility Klebsiella pneumoniae AMPICILLIN AGNIESZKA (VITEK) 16: Resistant Klebsiella pneumoniae AMPICILLIN/SULBACTAM AGNIESZKA (VITEK) 4: Sensitive Klebsiella pneumoniae CEFTRIAXONE AGNIESZKA (VITEK) <=1: Sensitive Klebsiella pneumoniae CEFTAZIDIME AGNIESZKA (VITEK) <=1: Sensitive Klebsiella pneumoniae CEFAZOLIN AGNIESZKA (VITEK) <=4: Sensitive Klebsiella pneumoniae ESBL AGNIESZKA (VITEK) NEG: Sensitive Klebsiella pneumoniae NITROFURANTOIN AGNIESZKA (VITEK) 128: Resistant Klebsiella pneumoniae GENTAMICIN AGNIESZKA (VITEK) <=1: Sensitive Klebsiella pneumoniae LEVOFLOXACIN AGNIESZKA (VITEK) <=0.12: Sensitive Klebsiella pneumoniae PIPERACILLIN/TAZOBACTAM AGNIESZKA (VIT EK) <=4: Sensitive Klebsiella pneumoniae TRIMETH-SULFAMETH. AGNIESZKA (VITEK) <=20: Sensitive Enterococcus species AMPICILLIN AGNIESZKA (VITEK) <=2: Sensitive Enterococcus species NITROFURANTOIN AGNIESZKA (VITEK) <=16: Sensitive Enterococcus species GENT. SYNERGY SCREEN AGNIESZKA (VITEK) Sensitive Enterococcus species PENICILLIN G AGNIESZKA (VITEK) 2: Sensitive Ronald Rutherford MD MICROBIOLOGY - GENERAL ORDERABLE S Final Result Performing Organization Address [facility]/ZIP Co de Phone Number [facility] [address] [place] [address], [place] [phone] [facility] [address] [place] [address], [place] [phone] * (ABNORMAL) OSMOLALITY, BLOOD (02/10/2025 6:53 PM CDT) OSMOLALITY (S/P/B) 252(L) 270 - 290 MOSM/KG 02/11/2025 10:41 AM CDT [facility] 02/10/2025 6:53 PM CDT us Ronald Rutherford MD LABORATORY Final Result Performing Organization Address [facility]/ZIP Co de Phone Number [facility] [address] [place] [address], [place] [phone] * CORONAVIRUS (COVID-19) MOLECULAR (02/10/2025 6:52 PM CDT) CORONAVIRUS SARS COV 2 RNA NEGATIVE NEGATIVE 02/10/2025 7:42 PM CDT [facility] Comment: NEGATIVE RESULTS DO NOT [...] QUALITATIVE DETECTION OF SARS-COV-2. SPECIMEN TYPE NASAL 02/10/2025 7:24 PM CDT [facility] NASOPHARYNGEAL SWAB / Unknown 02/10/2025 6:52 PM CDT us Ronald Rutherford MD MICROBIOLOGY - GENERAL ORDERABLE S Final Result [facility] [address] [place] [address], [place] [phone] * INFLUENZA A & B (02/10/2025 6:52 PM CDT) Pathologist [facility] SPECIMEN TYPE NASOPHARYNGEAL SWAB 02/10/2025 7:27 PM CDT [facility] INFLUENZA A NEGATIVE NEGATIVE 02/10/2025 7:44 PM CDT [facility] INFLUENZA B NEGATIVE NEGATIVE 02/10/2025 7:44 PM CDT [facility] NASAL STRUCTURE / Unknown 02/10/2025 6:52 PM CDT us Ronald Rutherford MD MICROBIOLOGY - GENERAL ORDERABLE S Final Result Performing Organization Address City/[facility]/ZIP Co de Phone Number [facility] [address] [place] [address], [place] [phone] * HEPATITIS PANEL,ACUTE (10/09/2024 1:27 PM CDT) HEPATITIS B SURFACE AG NON-REACTI VE NON-REACTI VE 10/09/2024 10:40 PM CDT [facility] HEP B CORE IGM NON-REACTI VE NON-REACTI VE 10/09/2024 10:40 PM CDT [facility] HAV IGM NON-REACTI VE NON-REACTI VE 10/09/2024 10:40 PM CDT [facility] HEPATITIS C AB NON-REACTI VE NON-REACTI VE 10/09/2024 10:40 PM CDT [facility] 10/09/2024 1:27 PM CDT Abigail Muniz CLOTH COLORER LABORATORY Final Result [facility] [address] [place] [address], from Last 3 Months or Most Recently Relevant to Health Maintenance Insurance [employer] MEDICARE [facility] Advance Directives Documents on File Type Date Recorded Patient Learning Coordinator Expl anation Advance Directives and Living Will 03/02/2024 10:28 AM 02/28/2024 POA FOR HEALTH CARE * Full Code (Latest Code Status on File) Date Activated Date Inactivated Comments 02/11/2025 8:26 AM 02/12/2025 4:11 PM * Full Code Date Activated Date Inactivated Comments 11/22/2024 10:20 PM 11/24/2024 12:20 PM * Full Code Date Activated Date Inactivated Comments 10/09/2024 1:02 PM 10/10/2024 3:38 PM * Full Code Date Activated Date Inactivated Comments 02/27/2024 10:27 PM 03/01/2024 3:20 PM Healthcare Agents on File Name Relationship Healthcare Agent [facility] Communication Lucía Chung Spouse Health Care Agent Mary Varghese Daughter First Alternate Health Care Agent Care Teams Railroad Track Mechanic Relationship Specialty Start Date End Date Carlos Alcala DO 0 [facility] [address] [place] [address] PCP - General INTERNAL MEDICINE 02/27/24 Cody Andres NP [address] [facility] [address] [place] [address] NURSE PRACTITIONER 11/22/24
--- OUTSIDE RECORDS SUMMARY | 2025-04-30 13:05 | XMS_ITS | Clinical Summary ---
Author Organization [facility] Address [address] [place] [address] Phone Care Team Providers Care Plastic Production Machine Setter Name Role Phone Carlos Alcala DO Primary Care Provider [phone] Allergies No known active allergies Medications Anoro [...] PCV) 2007 Influenza Vaccine (#1) [address] [place] [address] Care Teams Plastic Production Machine Setter Relationship Specialty Start Date End Date Carlos Alcala DO [address] [place] [address] PCP - General Internal Medicine 01/15/22
--- OUTSIDE RECORDS SUMMARY | 2025-04-30 13:05 | XMS_ITS | Patient Health Record ---
Author Organization [employer] [facility] Address [address] [place], [place] [address] Care Team Providers Care Mobile Sales Technician Name Role Phone JACQUELINE LISSETT Primary Care Provider Marshal Cervantes Unavailable [phone] ALLERGIES No Known Allergies REASON FOR REFERRAL [...] Notes Problem Polyarthralgia (719.49) Active confirmed Polyarthralgia (71014362) Problem Myalgia (729.1) Active confirmed Myalgi a (93188434) Problem POLYARTHRITIS (716.59) Active confirmed Polyarthritis (662024387) Problem Fibromyalgia (729.1) Active confirmed Fibromyalgia (766684886) Problem Polyarthralgia (M25.50) Active confirmed 40825837 Problem Myalgia (M79.10) Active confirmed 94292 001 Problem Dry eye (H04.129) Active confirmed 1622 [address] Problem Dry mouth (R68.2) Active confirmed 8771 5008 Problem Morning stiffness of joints (M25.60) Active confirmed 47270815 Problem Low back pain at multiple sites (M54.50) Active confirmed 797911017 Problem Fibromyalgia (M79.7) Active confirmed 058628032 PLAN OF TREATMENT Pending Test Test Name [...] Insured Coverage Start Date Coverage End Date [employer] PPO [address] [address] [place] [address] [id number] Yennifer Chungyl Self - patient is [...]
== END 2025-04-30 13:02 | disposition home or self-care (01) ==
PROVIDERS: PCP Nurse Practitioner; Visit Provider Nurse Practitioner Family
DX: R06.00 Dyspnea, unspecified (principal); R05.9 Cough, unspecified
CPT/HCPCS: 71046

== ENCOUNTER 2025-05-24 20:22 | Emergency (ER) | payer MEDICARE, OTHER, SELFPAY ==
--- OUTSIDE RECORDS SUMMARY | 2025-05-24 20:24 | XMS_ITS | Encounter Summary ---
Author Organization [facility] Address [address] [place] [address] Care Team Providers Care Child Protective Services Social Worker Name Role Phone Den Erickson MD Unavailable [phone] Alexandrea Sunshine Unavailable [phone] Carlos Alcala DO Primary Care Provider [phone] Encounter Details Date Type Department Care Team (Late st Contact Info) Description 05/17/2025 Results Follow-Up [facility] Orthopedics and Sports Medicine [address] [facility] [address] [place] [address] Alexandrea Sunshine PA 4 [facility] [address] [place], [place] [id number] CT Shoulder Right WO Contrast Social History Tobacco Use Types Packs/Day Years [...] on file Legal Sex 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[employer] Gender Identity Not on file Sexual Orientation Not on file documented as of this encounter Plan of Treatment Not on file documented as of this encounter Visit Diagnoses Not on filedocumented in this encounter Care Teams Child Protective Services Social Worker Relationship Specialty Start Date End Date Carlos Alcala DO [address] [place] [address] [address] [place] [address] PCP - General Internal Medicine 12/25/23 Den Erickson MD [address] [place] [address] [address] [place] [address] Surgeon Orthopedic Surgery 06/11/19 Alexandrea Sunshine PA [address] [place] [address] [address] [place] [address] Physician Medical Research Associate Orthopedic Surgery 01/25/23 documented as of this encounter
--- OUTSIDE RECORDS SUMMARY | 2025-05-24 20:24 | XMS_ITS | Clinical Summary ---
Author Organization [facility] Address [address] [place] [address] Care Team Providers Care Stunt Woman Name Role Phone Carlos Alcala DO Primary Care Provider [phone] DmitryCody Sterling LEAD BURNER APPRENTICE Unavailable [phone] Allergies Active Allergy Reactions Criticality Noted Date [...] CDT - 03/21/2025 10:49 PM CDT Emergency [facility] Emergency Room [id number] [place] [address] Misty Tamayo MD Dale, Maurice D, Dehydration Discharge Disposition: Home or Self Care (Routine Discharge) 03/21/2025 Travel 02/27/2025 Telephone [facility] Med/Surg [address] [place] [address] Kymberly Garcia I, RN Follow Up Call from Last 3 Months Family History Medical History Relation Comments Cancer Father Rheumatoid Arthritis Father COPD Mother Cancer Mother Relation Status Comments Father Mother Social History Tobacco Use Types Packs/Day Years Used Date Smoking Tobacco: Former Cigarettes Q uit: 2004 Smokeless Tobacco: Never Tobacco Cessation:Counseling Given: Not Answered Alcohol Use Standard Drinks/Week Comments Yes 8.3 (1 standard drink = 0.6 oz p ure alcohol) B1300 Health Literacy Answer Date Recor ded How often do you need to hav e someone help you when you read instructions, pamphlets, or other written material from your doctor or pharmacy? Never 11/22/2024 [facility] Utilities Answer Date Recorded In the past 12 months has e [employer], gas, oil, or water [employer] threatened to shut off services in your [...] week 11/22/2024 How often do you attend formerly [facility] or holiness services? Never 11/22/2024 Do you belong to any clubs o r organizations such as mu-ism groups, unions, fraternal or athletic groups, or [...] Recorded Patient Health Questionnaire-2 Score 0 11/22/2024 [facility] - Occupational Stress Questionnaire Answer Date [...] any time in the past 12 m [facility], were you homeless or living in a care home (including now)? No 02/11/2025 Comments No Sex [...] Annual Medicare Wellness Visit 2022 COVID-19 Vaccine (3 - season) 2025 09/11/2020, 08/12/2020 Influenza Adult (#1) 2025 06/05/2024, 02/01/2023, 03/08/2022, Additional history exists RSV Immunization or 60+ Years (1 - 1-dose 75+ series) 2032 Zoster Vaccines Completed 05/08/2022, 03/08/2022 Dexa Scan (General) Completed 03/27/2023, 10/25/202 3 Pneumococcal Vaccine: 50+ Years Completed 04/28/2023, 2022, 03/15/2022, Additional history exists Hepatitis C Completed 10/09/2024 PHQ-2 (Physician [place]) Completed 11/22/2024 Hepatitis A Vaccines Aged Out [...] discharge from hospital Lifestyle No 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 copy chief Procedure Name Priority Date/Time Associated Diagnosis Comments [...] W/AUTO DIFF STAT 03/21/2025 4:10 PM CDT HEPATITIS PANEL,ACUTE Routine 10/09/2024 1:27 PM CDT from Last 3 Months or Most Recently Relevant to Health Maintenance Results * (ABNORMAL) URINALYSIS, AUTO, COMPLETE (03/21/2025 6:43 PM CDT) COLOR (U) YELLOW 03/21/2025 7:05 PM CDT [facility] TRANSPARENCY CLEAR 03/21/2025 7:05 PM CDT [facility] SPECIFIC GRAVITY (U) <1.005 1.000 - 1.030 03/21/2025 7:05 PM T [facility] U PH 7.0 5.0 - 9.0 03/21/2025 7:05 PM CDT [facility] LEUKOCYTES (U) NEGATIVE NEGATIVE 03/21/2025 7:05 PM CDT [facility] NITRITES NEGATIVE NEGATIVE 03/21/2025 7:05 PM T [facility] PROTEIN RANDOM (U) NEGATIVE NEGATIVE 03/21/2025 7:05 PM T [facility] GLUCOSE (U) NEGATIVE NEGATIVE 03/21/2025 7:05 PM T [facility] KETONES MG/DL (U) TRACE(A) NEGATIVE 03/21/2025 7:05 PM T [facility] BILIRUBIN (U) NEGATIVE NEGATIVE 03/21/2025 7:05 PM T [facility] BLOOD (U) NEGATIVE NEGATIVE 03/21/2025 7:05 PM T [facility] WBC/HPF 0-5 0 - 5 /HPF 03/21/2025 7:05 PM T [facility] RBC/HPF 0-5 0 - 5 /HPF 03/21/2025 7:05 PM T [facility] EPI/HPF RARE /HPF 03/21/2025 7:05 PM T [facility] URINE SPECIMEN OBTAINED BY CLEAN CATCH PROCEDURE / Unknown 03/21/2025 6:43 PM CDT us Misty Tamayo MD URINE ORDERABLES Final Res ult [facility] [address] [place] [address], [place] [phone] * CT ABD+PEL W IV CON ONLY (03/21/2025 5:45 PM CDT) Anatomical Region Laterality Modality Abdomen Computed Tomogra phy 03/21/2025 5:52 PM CDT Impressions 03/21/2025 5:53 PM CDT IMPRESSION: 1. No acute findings Ordered By: MISTY TAMAYO Interpreted By: Melvin Saldana MD, 03/21/2025 5:52 PM Narrative 03/21/2025 5:53 PM CDT [facility] [address] [place] [address] CT ABDOMEN AND PELVIS WITH CONTRAST Exam [...] Procedure Note Melvin Saldana MD - 03/21/2025 [facility] [address] [place] [address] CT ABDOMEN AND PELVIS WITH CONTRAST Exam [...] COMPREHENSIVE METABOLIC PANEL (03/21/2025 4:10 PM CDT) [facility] Signature GLUCOSE 86 70 - 99 MG/DL 03/21/2025 4:54 PM CDT [facility] BUN 11 7 - 18 MG/DL 03/21/2025 4:54 PM CDT [facility] CREATININE S/P/B 1.00 0.55 - 1.02 MG/DL 03/21/2025 4:54 PM CDT [facility] SODIUM S/P/B 133(L) 136 - 145 MMOL/L 03/21/2025 4:54 PM CDT [facility] POTASSIUM S/P/B 4.5 3.5 - 5.1 MMOL/L 03/21/2025 4:54 PM CDT [facility] CHLORIDE S/P/B 94(L) 100 - 108 MMOL/L 03/21/2025 4:54 PM T [facility] CO2 27.5 21 - 32 MMOL/L 03/21/2025 4:54 PM T [facility] CALCIUM S/P/B 8.6 8.5 - 10.1 MG/DL 03/21/2025 4:54 PM T [facility] BILIRUBIN TOTAL S/P/B 1.0 0.2 - 1.2 MG/DL 03/21/2025 4:54 PM T [facility] TOTAL PROTEIN S/P/B 8.1 6.4 - 8.2 G/DL 03/21/2025 4:54 PM T [facility] ALBUMIN S/P/B 4.0 3.4 - 5.0 G/DL 03/21/2025 4:54 PM T [facility] AST 66(H) 15 - 37 U/L 03/21/2025 4:54 PM CDT [facility] ALT 30 14 - 55 U/L 03/21/2025 4:54 PM CDT [facility] ALKALINE PHOSPHATASE S/P/B 113 50 - 136 U/L 03/21/2025 4:54 PM CDT [facility] ANION GAP 11.5 5 - 15 MMOL/L 03/21/2025 4:54 PM CDT [facility] BUN CREATININE RATIO 11.0 6 - 26 03/21/2025 4:54 PM CDT [facility] A/G RATIO 1.0 1.0 - 2.0 RATIO 03/21/2025 4:54 PM CDT [facility] GFR ESTIMATE 62(L) >90 ML/MIN/1.7 3 M2 03/21/2025 4:54 PM CDT [facility] Comment: NOTE: eGFR is not calculated for patients <18 years of age. This is an estimated GFR calculation using the new CKD EPI creatinine equation without race and so does not require a correction factor for race. This estimated GFR should not be used for calculating drug doses. 03/21/2025 4:10 PM CDT us Misty Tamayo MD LABORATORY Final Resu lt [facility] [address] [place] [address], [place] [phone] * (ABNORMAL) CBC W/DIFF AUTOMATED (03/21/2025 4:10 PM CDT) WBC 6.06 4.4 - 11.0 x10'3/uL 03/21/2025 4:56 PM CDT [facility] RBC 3.68(L) 4.50 - 5.10 x10'6/uL 03/21/2025 4:56 PM CDT [facility] HGB 12.1(L) 12.3 - 15.3 G/DL 03/21/2025 4:56 PM CDT [facility] HCT 34.6(L) 35.9 - 44.6 % 03/21/2025 4:56 PM CDT [facility] MCV 94.0 80.0 - 96.0 FL 03/21/2025 4:56 PM CDT [facility] MCH 32.9(H) 25.3 - 30.9 PG 03/21/2025 4:56 PM CDT [facility] MCHC 35.0(H) 31.0 - 34.1 G/DL 03/21/2025 4:56 PM CDT [facility] RDW 13.5 12.4 - 15.1 % 03/21/2025 4:56 PM CDT [facility] PLT 193 151 - 353 x10'3/uL 03/21/2025 4:56 PM CDT [facility] MPV 9.3(L) 9.6 - 12.0 FL 03/21/2025 4:56 PM CDT [facility] RBC MORPHOLOGY NORMAL 03/21/2025 4:56 PM T [facility] PLT MORPH. NORMAL 03/21/2025 4:56 PM CDT [facility] WBC MORPHOLOGY NORMAL 03/21/2025 4:56 PM CDT [facility] LYMPHOCYTES % 8.6(L) 15.8 - 45.0 % 03/21/2025 4:56 PM CDT [facility] NEUTROPHILS % 82.6(H) 42.1 - 71.9 % 03/21/2025 4:56 PM CDT [facility] MONOCYTES % 6.1 5.7 - 12.5 % 03/21/2025 4:56 PM CDT [facility] EOSINOPHILS 1.2 0.0 - 5.6 % 03/21/2025 4:56 PM CDT [facility] BASOPHILS 1.0 0.0 - 1.3 % 03/21/2025 4:56 PM CDT [facility] ABS. NEUTROPHILS 5.01 1.40 - 6.00 x10'3/uL 03/21/2025 4:56 PM CDT [facility] IMMATURE GRANS % 0.5 0.0 - 0.5 % 03/21/2025 4:56 PM CDT [facility] ABS. LYMPHOCYTES 0.52(L) 0.80 - 4.70 x10'3/uL 03/21/2025 4:56 PM CDT [facility] 03/21/2025 4:10 PM CDT Misty Tamayo MD LABORATORY Final Resu lt Performing Organization Address City/[facility]/ZIP Co de Phone Number [facility] [address] [place] [address], [place] [phone] * (ABNORMAL) MAGNESIUM (03/21/2025 4:10 PM CDT) MAGNESIUM 1.3(L) 1.8 - 2.4 MG/DL 03/21/2025 4:54 PM CDT [facility] 03/21/2025 4:10 PM CDT Misty Tamayo MD LABORATORY Final Resu lt [facility] [address] [place] [address], [place] [phone] * LIPASE (03/21/2025 4:10 PM CDT) LIPASE 16 16 - 77 UNITS/L 03/21/2025 4:54 PM CDT [facility] 03/21/2025 4:10 PM CDT Misty Tamayo MD LABORATORY Final Resu lt Performing Organization Address [facility]/ZIP Co de Phone Number [facility] [address] [place] [address], [place] [phone] * ETHANOL (03/21/2025 4:10 PM CDT) ALCOHOL S/P/B <0.003 <0.003 G/DL 03/21/2025 4:54 PM CDT [facility] 03/21/2025 4:10 PM CDT Misty Tamayo MD LABORATORY Final Resu lt Performing Organization Address [facility]/ZIP Co de Phone Number [facility] [address] [place] [address], [place] [phone] * HEPATITIS PANEL,ACUTE (10/09/2024 1:27 PM CDT) HEPATITIS B SURFACE AG NON-REACTI VE NON-REACTI VE 10/09/2024 10:40 PM CDT [facility] HEP B CORE IGM NON-REACTI VE NON-REACTI VE 10/09/2024 10:40 PM CDT [facility] HAV IGM NON-REACTI VE NON-REACTI VE 10/09/2024 10:40 PM CDT [facility] HEPATITIS C AB NON-REACTI VE NON-REACTI VE 10/09/2024 10:40 PM CDT [facility] 10/09/2024 1:27 PM CDT us Darah R Dodt SENIOR BIOINFORMATICS SCIENTIST LABORATORY Final Result [facility] [address] [place] [address], from Last 3 Months or Most Recently Relevant to Health Maintenance Insurance MEDICARE Advance Directives Documents on File Type Date Recorded Patient Cigarette Maker Expl anation Advance Directives and Living Will [...] Agents on File Name Relationship Healthcare Agent Relationshi p Communication Lucía Chung Spouse Health Care Agent Mary Varghese Daughter First Alternate Health Care Agent Care Teams Stunt Woman Relationship Specialty Start Date End Date Carlos Alcala DO 0 [facility] [address] [place] [address] PCP - General INTERNAL MEDICINE 02/27/24 Cody Andres, LEAD BURNER APPRENTICE [address] [facility] [address] [place] [address] NURSE PRACTITIONER 11/22/24
--- OUTSIDE RECORDS SUMMARY | 2025-05-24 20:24 | XMS_ITS | Patient Health Record ---
Author Organization [employer] Address [address] [facility] [address] [id number] Phone [phone] Care Team Providers Care Double Bottom Driver Name Role Phone LISSETT PHILLIPS Primary Care Provider Helen Norwood, Akgun Unavailable [phone] Allergies No Known Allergies Reason For Referral No Information Medications Medication SIG (Take, Route, Frequency, Duration) Notes Start Date End Date Diagnosis (ICD Code) Status Anoro Ellipta 62.5 mcg-25 mcg/inh powder 1 puff(s) inhaled once a day Active Hydrocodone Acetaminophen 5-325mg Polyarthralgia (ICD_10 - M25.50) Active pantoprazole 40 mg delayed release tablet 1 tab(s) orally once a day Active estradiol 1 mg tablet 1 tab(s) orally once a day Active hyoscyamine 0.125 mg tablet 1 tab sub every 4 hours/prn Active LORazepam 0.5 mg tablet 1 tab oral prn Active metaxalone 800 mg tablet 1 tab(s) orally 3 times a day Active DULoxetine Hydrochloride 30 mg delayed release capsule 1 cap(s) orally qhs; Duration: 30 day(s) 04/13/2021 Active Metoprolol Succinate ER 25 mg tablet, extended release 1 tab(s) orally once a day Active atorvastatin 20 mg tablet 1 tab(s) orally once a day Active Social History Sex Observation Social History Observation Description Sex Observation Female Social History Additional Details Category Social Info Options Details Social History 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 spouse Marital Status How many times have you been ? 1 Living accomodations: house Problems Problem Type SNOMED Code ICD Code Dates Problem Status W/U Status Risk Notes Problem Polyarthralgia (29896415) Polyarthralgia (719.49) Active confirmed Problem Fibromyalgia (751815653) Fibromyalgia (729.1) Active confirmed Problem Myalgia (52573371) Myalgia (729.1) Active confirmed Problem Polyarthritis (919306164) POLYARTHRITIS (716.59) Active confirmed Problem Fibromyalgia (005713483) Fibromyalgia (M79.7) Added On:12/18 Active confirmed Problem Polyarthralgia (48507529) Polyarthralgia (M25.50) Added On:03/28 Active confirmed Problem Dry mouth (13438455) Dry mouth (R68.2) Added On:03/28 Active confirmed Problem Morning stiffness - joint (96114624) Morning stiffness of joints (M25.60) Added On:03/28 Active confirmed Problem Tear film insufficiency (44623774) Dry eye (H04.129) Added On:03/28 Active confirmed Problem Myalgia (77254033) Myalgia (M79.10) Added On:03/28 Active confirmed Problem Low back pain (finding) (104091791) Low back pain at multiple sites (M54.50) Added On:12/18 Active confirmed Plan Of Treatment Pending Test Test Name Order Date X [...] Insured Coverage Start Date Coverage End Date [employer] PPO [address] [address] [place] [address] [id number] 01 ChungRosemarie Self - patient is the insured Medical (General) History Medical History History ICD Code bruises easily varicose veins bloating broken ankle -rt left stress fracture sores that won't heal anxiety chest pain irregular heart beat poor circulation difficulty breathing indigestion low blood pressure rapid heartbeat Surgical History Surgery Date(Month/Year) neuroma removal-left foot Torn rotator cuff surgery Hospitalization History Reason Date(Month/Year) Fractured Back
--- OUTSIDE RECORDS SUMMARY | 2025-05-24 20:24 | XMS_ITS | Clinical Summary ---
Author Organization [facility] Address [address] [place] [address] Care Team Providers Care Ceramic Research Engineer Name Role Phone Carlos Alcala DO Primary Care Provider Source Comments [facility],non-owned Affiliates and Associated Physician Practices is amultiple site organization consisting of ambulatory clinics and hospital sitesin [place], [place], [place] and [place]. This disclosure is being madepursuant to the Care Everywhere program and may not contain all information available regarding this patient. Last updated 18.[facility] Allergies No known active allergies Medications * [...] Comments Blood Pressure 134/67 04/08/2020 11:45 AM JAVA DESIGNER Pulse 65 04/08/2020 11:45 AM JAVA DESIGNER Temperature 37.2 C (98.9 F) 04/08/2020 8:22 AM JAVA DESIGNER Respiratory Rate 17 04/08/2020 11:45 AM JAVA DESIGNER Oxygen Saturation 97% 04/08/2020 11:45 AM JAVA DESIGNER Inhaled Oxygen Concentration - - Weight 59 kg (130 lb) 04/08/2020 7:50 AM JAVA DESIGNER Height 166.4 cm (5' 5.5) 04/08/2020 7:50 AM JAVA DESIGNER Body Mass Index 21.3 04/08/2020 7:50 AM JAVA DESIGNER Plan of Treatment Health Maintenance Due Date [...] to complete this topic Insurance MEDICARE MEDICARE [facility] MEDIC[facility] MEDIC[facility] Care Teams Ceramic Research Engineer Relationship Specialty Start Date End Date Carlos Alcala DO [address] [place] [id number] PCP - General 01/10/22
--- OUTSIDE RECORDS SUMMARY | 2025-05-24 20:24 | XMS_ITS | Clinical Summary ---
Author Organization [facility] Address [address] [place] [address] Phone Care Team Providers Care Animal Warden Name Role Phone Carlos Alcala DO Primary Care Provider [phone] Allergies No known active allergies Medications Anoro [...] PCV) 2007 Influenza Vaccine (#1) [address] [place] [address] Care Teams Animal Warden Relationship Specialty Start Date End Date Carlos Alcala DO [address] [place] [address] PCP - General Internal Medicine 01/15/22
--- OUTSIDE RECORDS SUMMARY | 2025-05-24 20:24 | XMS_ITS | Clinical Summary ---
Author Organization [facility] Address [address] [place] [address] Care Team Providers Care Clinical Business Manager Name Role Phone Carlos Alcala Primary Care Provider [phone] Allergies Active Allergy Reactions Criticality Noted Date Comments Chlorhexidine Itching Medium 07/11/2023 Medications FISH [id number]-VIT C-VIT E ORAL Take by mouth. Ac [...] st Contact Info) Description 07/02/2025 10:15 AM VEHICLE WINDOW TINTER Office Visit [facility] Oncology and Hematology - [place] [address] [facility] [address] [place] [address] Elia Escobedo MD [address] [facility] [address] [place] [address] Health Maintenance Due Date Last [...] YEARS Completed 2022 , 07/15/2016 Insurance MEDICARE [facility] Care Teams Clinical Business Manager Relationship Specialty Start Date End Date Carlos Alcala DO [address] [facility] [address] [facility] [address] [place] [address] PCP - General Internal Medicine 12/30/24
--- OUTSIDE RECORDS SUMMARY | 2025-05-24 20:24 | XMS_ITS | Clinical Summary ---
Author Organization [facility] Address [address] [place] [address] Care Team Providers Care Client Service Manager Name Role Phone Den Erickson MD Unavailable [phone] Alexandrea Sunshine Unavailable [phone] Carlos Alcala DO Primary Care Provider [phone] Allergies Active Allergy Reactions Criticality Noted Date [...] 1 tablet (20 mEq total) by mouth production metal sprayer before breakfast 3 Active LORazepam (ATIVAN) 0.5 [...] 07/12/2023 Assessment & Plan (07/14/2023 11:54 AM AGRICULTURE PROFESSOR): - EKG and tele showing new onset [...] veins, scarring and need for further treatment History of reverse total rep lacement of right shoulder joint 01/23/2023 Assessment & Plan (05/22/2025 2:13 PM AGRICULTURE PROFESSOR): Orders: CT Shoulder Right WO Contrast; Future Arrhythmia 01/21/2023 Low sodium levels 01/21/2023 Rotator cuff tear arthropathy of right shoulder 11/28/2022 Acute kidney failure 02/07/2022 Polyarthritis 02/07/2022 Chronic anemia 02/02/2022 Reactive thrombocytosis 02/02/2022 History of repair of right rotator cuff 10/14/19 Discharge from [facility] 04/14/2014 Resolved Problems Problem Noted Date Diagnosed Date Resolved Date Traumatic rotator cuff tear, right, initial encounter 06/08/2019 10/14/2019 Overview (06/08/2019): Added automatically from request for surgery [id number] Arthritis of right acromioclavicular joint 06/08/2019 10/14/2019 Overview (06/08/2019): Added automatically from request for surgery [id number] 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 06/08/2019 10/14/2019 Overview (06/08/2019): Added automatically from request for surgery [id number] Impingement syndrome of right shoulder 06/08/2019 10/14/2019 Overview (06/08/2019): Added automatically from request for surgery [id number] Encounters Date Type Department Care Team Description 05/17/2025 Results Follow-Up [facility] [address] [place] [address] [address] [place] [phone] Shoulder Right WO Contrast 05/14/2025 10:09 AM AGRICULTURE PROFESSOR - 05/14/2025 11:59 PM AGRICULTURE PROFESSOR Hospital Encounter [address] [address] Acute pain of right shoulder; History of reverse total replacement of right shoulder joint; Fall, initial encounter; Closed fracture of other part of right scapula, initial encounter Discharge Disposition: Discharge to home or self care 05/13/2025 12:30 PM AGRICULTURE PROFESSOR Ancillary Procedure [facility] Imaging at [address] [phone] Acute pain of right shoulder 05/13/2025 12:30 PM AGRICULTURE PROFESSOR Office Visit [facility] Orthopedic and Sports Medicine [address] [place] [phone] Alexandrea Sunshine PA Acute pain of right shoulder (Primary Dx); History of reverse total replacement of right shoulder joint; Fall, initial encounter; Closed fracture of other part of right scapula, initial encounter; Hematoma of right hip 05/13/2025 Telephone [facility] Sports Medicine [address] [place] [phone] Alisha Green MA 05/13/2025 Orders Only [facility] [address] [place] [phone] Ashish Zvaala MD 05/12/2025 Telephone [facility] [address] [place] [address] [place] [phone] Den Erickson MD right shoulder 05/09/2025 12:05 AM AGRICULTURE PROFESSOR Ancillary Procedure [facility] 05/09/2025 Ancillary Procedure [facility] 05/09/2025 Ancillary Procedure [facility] from Last 3 Months Immunizations Immunization Administration Dates Next Due Influenza, [...] on file Legal Sex Female 12:44 AM AGRICULTURE PROFESSOR Gender Identity Not on file Sexual Orientation Not on file Last Filed Vital Signs Vital Sign Reading Time Taken Comments Blood Pressure 147/81 05/13/2025 12:40 PM AGRICULTURE PROFESSOR Pulse 81 05/13/2025 12:40 PM AGRICULTURE PROFESSOR Temperature 36.6 C (97.8 F) 07/19/2023 11:29 AM AGRICULTURE PROFESSOR Respiratory Rate 15 07/20/2023 8:30 AM AGRICULTURE PROFESSOR Oxygen Saturation 98% 07/20/2023 8:30 AM AGRICULTURE PROFESSOR Inhaled Oxygen Concentration - - Weight 62.1 kg (137 lb) 05/13/2025 12:40 PM AGRICULTURE PROFESSOR Height 160 cm (5' 3) 05/13/2025 12:40 PM AGRICULTURE PROFESSOR Body Mass Index 24.27 05/13/2025 12:40 PM AGRICULTURE PROFESSOR Plan of Treatment Health Maintenance Due Date Last Done Comments Breast Cancer Screening-Mammogram 1955 Colon Cancer Screening-Colonoscopy 1955 Hepatitis C Screening 1955 DTaP/Tdap/Td Vaccine (1 - Tdap) 1968 Hepatitis B Screening 1975 Well Visit 65+ 2022 Depression Screening 11/29/2023 11/28/2022 Fall Risk Assessment 07/15/2024 07/15/2023, 11/29/19 23 Influenza Vaccine (#1) 2025 , 02/01/2023, 03/08/2022, Additional history exists Osteoporosis Screening-Bone Density Scan 03/27/2025 03/27/2023 Pneumococcal vaccine 65+ (3 of 3 - PCV20 or PCV21) 03/15/2027 03/15/2022, 07/15/2016 Zoster Vaccine Completed 05/08/2022, 03/08/2022 Medical Devices Implanted Type Area Polisher And Sander Device Identifier Shelf Expiration Date Model / Serial / Lot Arthrex Inc Ar-3633 Arthrex Fibertak Tape 3 Load Rotator Cuff [place] Suture Sterile Latex Free - [id number] Implanted:Qty: 1 on 06/11/2019 by Den Erickson MD at [facility] Right: Shoulder Arthrex Inc 03/02/2024 AR-3633 / / [id number] Arthrex Inc Ar-2324bcc Swivelock C 4.75mm 19.1mm Closed Eyelet Vent [place] Suture - [id number] Implanted:Qty: 1 on 06/11/2019 by Den Erickson MD at [facility] Right: Shoulder Arthrex Inc 04/02/2021 AR-2324BCC / / [id number] Arthrex Inc Arthrex Univers Revers Shoulder 7 Stem Humeral Sterile Ar-9501-07p - [id number] Implanted:Qty: 1 on 01/24/2023 by Den Erickson MD at [facility] Right: Shoulder Arthrex Inc [id number] 03/02/2027 AR-9501-07 P / / [id number] Arthrex Inc Baseplate 24mm 10 Deg Full Augment Oblique Kp-9324-3357 - [id number] Implanted:Qty: 1 on 01/24/2023 by Den Erickson MD at [facility] Right: Shoulder Arthrex Inc [id number] 10/01/2027 AR-9580-24 10 / / [id number] Arthrex Inc Component Glenoid Modular Post Reverse 20mm Ar-9582-20 - [id number] Implanted:Qty: 1 on 01/24/2023 by Den Erickson MD at [facility] Right: Shoulder Arthrex Inc [id number] 08/01/2027 AR-9582-20 / / [id number] Arthrex Inc 36mm 24 Baseplate Taper Sphere Glenoid Cy-0529-4677 - [id number] Implanted:Qty: 1 on 01/24/2023 by Den Erickson MD at [facility] Right: Shoulder Arthrex Inc [id number] 04/02/2026 AR-9564-24 36 / / [id number] Arthrex Inc 5.5mm 24mm Lock Modular Glenoid Screw Bone Ar-9563-24 - [id number] Implanted:Qty: 1 on 01/24/2023 by Den Erickson MD at [facility] Right: Shoulder Arthrex Inc [id number] 10/01/2027 AR-9563-24 / / [id number] Arthrex Inc 5.5mm 36mm Lock Peripheral Screw Bone Sterile Ar-9563-36 - [id number] Implanted:Qty: 1 on 01/24/2023 by Den Erickson MD at [facility] Right: Shoulder Arthrex Inc [id number] 08/01/2027 AR-9563-36 / / [id number] Arthrex Inc Insert Humeral Combo Reverse Poly Univers Revers +3x33mm Ss-6818-0302-3 - [id number] Implanted:Qty: 1 on 01/24/2023 by Den Erickson MD at [facility] Right: Shoulder Arthrex Inc [id number] 01/31/2027 AR-9503-33 36-3 / / [id number] Arthrex Inc Implant Suture Cup Humeral Reverse Right Univers Revers +2x33mm Titanium [id number] - [id number] Implanted:Qty: 1 on 01/24/2023 by Den Erickson MD at [facility] Right: Shoulder Arthrex Inc [id number] 04/02/2027 AR-9502F-3 3RCPC / / [id number] Allosource Crushed Fresh Frozen Cancellous 1-4mm Graft 15ml Bone [id number] - [id number] Implanted:Qty: 1 on 07/09/2023 by Mulugeta Navarrete MD at [facility] Spine Lumbar Allosource 11/21/2027 [id number] / / [id number] Medtronic Inc Kit Graft Bone Sponge Xlg Infuse 8cc Granules 2402749 - [id number] Implanted:Qty: 1 on 07/09/2023 by Mulugeta Navarrete MD at [facility] N/A: Spine Lumbar Medtronic Inc [id number] 12/01/2024 3912345 / / [id number] Viola Spine Graft Bone Filler Gel Bio Dbm 10cc 4314924 - [id number] Implanted:Qty: 1 on 07/09/2023 by Mulugeta Navarrete MD at [facility] N/A: Spine Lumbar [place]by Spine [id number] 01/03/2026 [id number] / / [id number] Spineart Usa Inc Screw Spn Pedicle Sld 5x25mm Sjt-Ls 50 25-S - [id number] Implanted:Qty: 1 on 07/09/2023 by Mulugeta Navarrete MD at [facility] N/A: Spine Lumbar SPINEART USA INC [id number] 12/07/2029 SJT-LS 50 25-S / / [id number] Spineart Usa Inc Cage Secured Lumbar Anterior Small Lordosis 15deg 10 Mm Sca-Ls 15 10-S - [id number] Implanted:Qty: 1 on 07/09/2023 by Mulugeta Navarrete MD at [facility] N/A: Spine Lumbar SPINEART USA INC 01/07/2027 SCA-LS 15 10-S / / [id number] Spineart Usa Inc Screw Spn Pedicle Sld 5x25mm Sjt-Ls 50 25-S - [id number] Implanted:Qty: 1 on 07/09/2023 by Mulugeta Navarrete MD at [facility] N/A: Spine Lumbar SPINEART USA INC [id number] 02/28/2031 SJT-LS 50 25-S / / [id number] Medtronic Inc Kit Graft Bone Sponge Xlg Infuse 8cc Granules [id number] - [id number] Implanted:Qty: 2 on 07/11/2023 by Mulugeta Navarrete MD at [facility] N/A: Spine Thoracic Medtronic Inc 12/01/2024 [id number] / / Canby Spine Graft Bone Filler Gel Bio Dbm 10 6508774 - [id number] Implanted:Qty: 1 on 07/11/2023 by Mulugeta Navarrete MD at [facility] N/A: Spine Thoracic Canby Spine [id number] 11/19/2025 8519765 / / [id number] Canby Spine Graft Bone Filler Gel Bio Dbm 10 2216365 - [id number] Implanted:Qty: 1 on 07/11/2023 by Mulugeta Navarrete MD at [facility] N/A: Spine Thoracic Canby Spine [id number] 01/03/2026 6866325 / / [id number] Canby Spine Graft Bone Filler Gel Bio Dbm 10 7415771 - [id number] Implanted:Qty: 1 on 07/11/2023 by Mulugeta Navarrete MD at [facility] N/A: Spine Thoracic Viola Spine [id number] 01/03/2026 1851899 / / [id number] Canby Spine Graft Bone Filler Gel Bio Dbm 10 4486506 - [id number] Implanted:Qty: 1 on 07/11/2023 by Mulugeta Navarrete MD at [facility] N/A: Spine Thoracic Viola Spine [id number] 01/03/2026 4726375 / / [id number] Viola Spine Graft Bone Filler Gel Bio Dbm 10 4985083 - [id number] Implanted:Qty: 1 on 07/11/2023 by Mulugeta Navarrete MD at [facility] N/A: Spine Thoracic Viola Spine [id number] 01/06/2026 0016431 / / [id number] Viola Spine Graft Bone Filler Gel Bio Dbm 10 0307492 - [id number] Implanted:Qty: 1 on 07/11/2023 by Mulugeta Navarrete MD at [facility] N/A: Spine Thoracic Viola Spine [id number] 01/03/2026 1478846 / / [id number] Allosource Crushed Chip Frozen Graft 30ml Bone Cancellous 95584609 - [id number] Implanted:Qty: 1 on 07/11/2023 by Mulugeta Navarrete MD at [facility] N/A: Spine Thoracic Allosource 08/19/2027 01696265 / / [id number] Allosource Crushed Chip Frozen Graft 90ml Bone Cancellous 37423691 - [id number] Implanted:Qty: 1 on 07/11/2023 by Mulugeta Navarrete MD at [facility] N/A: Spine Thoracic Allosource 10/21/2027 50618574 / / [id number] Viola Spine [place] Spine Screw Set Haney 2901-54178 - [id number] Implanted:Qty: 22 on 07/11/2023 by Mulugeta Navarrete MD at [facility] Canby Spine 2901-1 0001 / / Viola Spine [place] Od5.5 Mm L45 Mm Polyaxial Spine Screw Bone 291189198 - [id number] Implanted:Qty: 5 on 07/11/2023 by Mulugeta Navarrete MD at [facility] Viola Spine 2911-0 5545 / / Viola Spine [place] 6.5mm 30mm Polyaxial Spine Screw Bone Nonsterile 291101909 - [id number] Implanted:Qty: 2 on 07/11/2023 by Mulugeta Navarrete MD at [facility] Canby Spine 2911-0 6530 / / Viola Spine [place] Od6.5 Mm L40 Mm Polyaxial Spine Screw Bone 2911-03731 - [id number] Implanted:Qty: 2 on 07/11/2023 by Mulugeta Navarrete MD at [facility] Viola Spine 2911-0 6540 / / Viola Spine [place] Od6.5 Mm L45 Mm Polyaxial Spine Screw Bone 2911-51438 - [id number] Implanted:Qty: 6 on 07/11/2023 by Mulugeta Navarrete MD at [facility] Canby Spine 2911-0 6545 / / Canby Spine [place] Od6.5 Mm L60 Mm Polyaxial Spine Screw Bone Green 291140333 - [id number] Implanted:Qty: 1 on 07/11/2023 by Mulugeta Navarrete MD at [facility] Viola Spine 2911-0 6560 / / Canby Spine Screw 8.5 Mm Polyaxial - 70 Mm 2911-96416 - [id number] Implanted:Qty: 1 on 07/11/2023 by Mulugeta Navarrete MD at [facility] Viola Spine 2911-0 8570 / / Canby Spine Od8.5 Mm L80 Mm Polyaxial Spine Screw Bone Green 2911-71347 - [id number] Implanted:Qty: 1 on 07/11/2023 by Mulugeta Navarrete MD at [facility] Canby Spine 2911-0 8580 / / Viola Spine Connector Spinal Lateral Thoracolumbar Open Adjustable Offset [place] 25mm 2901-90998 - [id number] Implanted:Qty: 1 on 07/11/2023 by Mulugeta Navarrete MD at [facility] Canby Spine 2901-7 5525 / / Viola Spine [place] 35mm Lateral Offset Spine Connector Oswald Nonsterile Latex 2901-24475 - [id number] Implanted:Qty: 3 on 07/11/2023 by Mulugeta Navarrete MD at [facility] Canby Spine 2901-7 5535 / / Canby Spine L500 Mm Hexagonal End Oswald Spinal Titanium Alloy 101-R84463 - [id number] Implanted:Qty: 2 on 07/11/2023 by Mulugeta Navarrete MD at [facility] Canby Spine 101-A5 5500 / / Procedures Procedure Name Priority Date/Time Associated Diagnosis Comments CT SHOULDER RIGHT WO CONTRAST Schedule ELISSA, Read ELISSA (Appt Today, Awaiting Results) 05/14/2025 10:25 AM AGRICULTURE PROFESSOR Acute pain of right shoulder History of reverse total replacement of right shoulder joint Fall, initial encounter Closed fracture of other part of right scapula, initial encounter CT HIP RIGHT WO CONTRAST Schedule Routine, Read Routine (OP Routine) 05/13/2025 12:51 PM AGRICULTURE PROFESSOR XR HIP RIGHT W PELVIS 2 OR 3 VIEWS Schedule Routine, Read Routine (OP Routine) 05/13/2025 12:49 PM AGRICULTURE PROFESSOR XR SHOULDER 2+ VW Schedule Routine, Read Routine (OP Routine) 05/13/2025 12:47 PM AGRICULTURE PROFESSOR XR SHOULDER RIGHT 2 OR MORE VIEWS Schedule Routine, Read Routine (OP Routine) 05/13/2025 12:33 PM AGRICULTURE PROFESSOR Acute pain of right shoulder XR TRANSFER OF OUTSIDE FILMS Routine 05/09/2025 12:[address] BODY OUTSIDE REFERENCE Routine 05/09/2025 12:00 AM AGRICULTURE PROFESSOR XR TRANSFER OF OUTSIDE FILMS Routine 05/09/2025 12:00 AM AGRICULTURE PROFESSOR DEXA AXIAL SKELETON BONE DENSITY 1 OR MORE SITES Schedule Routine, Read Routine (OP Routine) 03/27/2023 2:06 PM CDT Osteoporosis, unspecified osteoporosis type, unspecified pathological fracture presence from Last 3 Months or Most Recently Relevant to Health Maintenance Results * CT Shoulder Right WO Contrast (05/14/2025 10:25 AM AGRICULTURE PROFESSOR) Anatomical Region Laterality Modality Upper Extremities Right Computed Tomog cody 05/14/2025 10:4 0 AM AGRICULTURE PROFESSOR Impressions 05/14/2025 10:40 AM AGRICULTURE PROFESSOR 1. Reverse ball and socket right total shoulder arthroplasty in expected position. 2. Likely nondisplaced inferior scapular neck periprosthetic fracture. Inferior glenoid notching is present. Electronically signed by: Tobias Sanon M.D. Narrative 05/14/2025 10:40 AM AGRICULTURE PROFESSOR EXAMINATION: CT SHOULDER RIGHT WO CONTRAST HISTORY: Right shoulder pain status post fall. TECHNIQUE: Transaxial computed tomographic images of the right shoulder were obtained without intravenous contrast. COMPARISON: CT 04/19/2023, radiographs 05/13/2025. FINDINGS: Evaluation limited by metal streak artifact. Reverse ball and socket right total shoulder arthroplasty is in place. No osteolysis lesions identified. Inferior glenoid notching is present. There is a likely nondisplaced inferior scapular neck periprosthetic fracture. Mild acromioclavicular joint osteoarthritis. No acute rib fracture identified. Rotator cuff muscle bulk atrophy is present. The deltoid muscle bulk is within normal limits. No suspicious axillary lymphadenopathy. Limited evaluation of the left lung demonstrates dependent atelectasis. Procedure Note Tobias Sanon MD - 05/14/2025 EXAMINATION: CT SHOULDER RIGHT WO CONTRAST HISTORY: Right shoulder pain status post fall. TECHNIQUE: Transaxial computed tomographic images of the right shoulder were obtained without intravenous contrast. COMPARISON: CT 04/19/2023, radiographs 05/13/2025. FINDINGS: Evaluation limited by metal streak artifact. Reverse ball and socket right total shoulder arthroplasty is in place. No osteolysis lesions identified. Inferior glenoid notching is present. There is a likely nondisplaced inferior scapular neck periprosthetic fracture. Mild acromioclavicular joint osteoarthritis. No acute rib fracture identified. Rotator cuff muscle bulk atrophy is present. The deltoid muscle bulk is within normal limits. No suspicious axillary lymphadenopathy. Limited evaluation of the left lung demonstrates dependent atelectasis. IMPRESSION: 1. Reverse ball and socket right total shoulder arthroplasty in expected position. 2. Likely nondisplaced inferior scapular neck periprosthetic fracture. Inferior glenoid notching is present. Electronically signed by: Tobias Sanon M.D. Alexandrea WILSON IMG CT PROCEDURES Final Result * CT Hip Right WO Contrast (05/13/2025 12:51 PM AGRICULTURE PROFESSOR) Anatomical Region Laterality Modality Lower Extremities Right Computed Tomog cody Historical Provider IMG CT PROCEDURES Final R esult * XR Hip Right 2 or 3 Views W Pelvis (05/13/2025 12:49 PM AGRICULTURE PROFESSOR) Anatomical Region Laterality Modality Lower Extremities, Hip, Pelvis Right R adiographic Imaging [facility] Provider IMG XR PROCEDURES Final R esult * XR Shoulder 2+ Vw (05/13/2025 12:47 PM AGRICULTURE PROFESSOR) Anatomical Region Laterality Modality Shoulder N/A Radiographic Paige ging Historical Provider IMG XR PROCEDURES Final R esult * XR Shoulder Right 2 or More Views (05/13/2025 12:33 PM AGRICULTURE PROFESSOR) Anatomical Region Laterality Modality Upper Extremities, Shoulder Right Digi rita Radiography Narrative 05/13/2025 1:16 PM AGRICULTURE PROFESSOR Radiographs of the right shoulder reviewed and interpreted by myself. They are compared with images obtained 06/16/2024. Status post right reverse total shoulder arthroplasty changes are noted with implants in acceptable position and alignment. On the axillary view, there is noted to be a minimally displaced scapular fracture of the base of the acromion. No obvious loosening or compromise of the prosthesis is noted. Alexandrea WILSON IMG XR PROCEDURES Final Result * XR Outside Reference (05/09/2025 12:05 AM AGRICULTURE PROFESSOR) Narrative [facility] - 05/13/2025 1:24 PM AGRICULTURE PROFESSOR This order has been auto-finalized and does not contain a result. Provider Transcribed Order IMG XR PROCEDURES Fin al Result Performing Organization Address [facility] de Phone Number [facility] * CT Body Outside Reference (05/09/2025 12:00 AM AGRICULTURE PROFESSOR) Narrative [facility] - 05/13/2025 1:21 PM AGRICULTURE PROFESSOR This order has been auto-finalized and does not contain a result. Provider Transcribed Order IMG CT PROCEDURES Fin al Result Performing Organization Address [facility] de Phone Number [facility] * XR Outside Reference (05/09/2025 12:00 AM AGRICULTURE PROFESSOR) Narrative [facility] - 05/13/2025 1:07 PM AGRICULTURE PROFESSOR This order has been auto-finalized and does not contain a result. Provider Transcribed Order IMG XR PROCEDURES Fin al Result Performing Organization Address [facility] de Phone Number [facility] * DEXA Axial Skeleton Bone Density Multi Site (03/27/2023 2:06 PM CDT) Anatomical Region Laterality Modality Body N/A Radiographic Paige ging Narrative 03/27/2023 3:17 PM CDT Patient Name: Rosemarie Chung Date of : 1955 Date of scan: 03/27/2023 Bone mineral density was performed on a Hologic Discovery Densitometer. Based on machine cross-calibration and [...] by the International Society of Clinical Densitometry. [id number] us Mulugeta Navarrete MD IMG DXA PROCEDURES F inal Result from Last 3 Months or Most Recently Relevant to Health Maintenance Insurance [facility] [place] [id number] [place] [address] MEDICARE RAILROAD Member Subscriber Plan / Payer (Ef fective 2022-Present) Name:Rosemarie Chung Member ID:[id number] Relation to Subscriber:Self Name:Rosemarie Chung Subscriber ID:[id number] Payer ID:[id number] Group ID:Not on file Type:MEDICARE LPATH Address: [address] Advance Directives For more information, please contact: [phone] Documents on File Type Date Recorded Patient Linux Network Systems Administrator Expl anation ADVANCE DIRECTIVE 07/10/2023 3:54 PM POWER OF SELLING UNDERWRITER-MEDICAL ADVANCE DIRECTIVE 07/10/2023 3:30 PM POWER OF SELLING UNDERWRITER-MEDICAL * Full Code (Latest Code Status on File) Date Activated Date Inactivated Comments 07/09/2023 2:12 PM 07/15/2023 8:53 PM * Full Code Date Activated Date Inactivated Comments 07/08/2023 12:52 PM 07/09/2023 5:13 AM * Full Code Date Activated Date Inactivated Comments 01/24/2023 2:35 PM 01/25/2023 7:43 PM Healthcare Agents on File Name Relationship Healthcare Agent Relationshi p Communication Israel Chung Spouse Health Care Agent HEENA Varghese Daughter First Alternate Health Care Agent Care Teams Client Service Manager Relationship Specialty Start Date End Date Fredrick DO Carlos [address] [place] [address] [address] [place] [address] PCP - General Internal Medicine 12/25/23 Den Erickson MD [address] [place] [address] [address] [place] [address] Surgeon Orthopedic Surgery 06/11/19 Alexandrea Sunshine PA [address] [place] [address] [address] [place] [address] Physician Ecommerce Manager Orthopedic Surgery 01/25/23
--- OUTSIDE RECORDS SUMMARY | 2025-05-24 20:24 | XMS_ITS | Encounter Summary ---
Author Organization [facility] Address [address] [place] [address] Care Team Providers Care Benefits Director Name Role Phone Carlos Alcala DO Primary Care Provider [phone] Encounter Details Date Type Department Care Team (Late st Contact Info) Description 10/19/2020 Lab Requisition [facility] Derm[facility] Lab [address] [place] [address] Billy Mccullough MD [address] [place] [address] Social History Tobacco Use Types [...] AM CDT) Case Report Dermatopathology Report Case: [id number] Authorizing Provider: Billy Mccullough MD Collected: 10/18/2020 12:00 AM Ordering Location: [facility] Derm[facility] Lab Received: 10/19/2020 01:45 [...] specimen consists of a shave biopsy measuring [id number]. Jar 0. 5:17 PM CDT DERMATOPATHOLOGY LABORATORY [...] characteristic determined by the Dermatopathology Laboratory at [facility], directed by Dr. James Rasmussen. These tests need not be, and therefore are not, approved by the [place] Food and Drug Administration. The tests are used for clinical purposes. Billing Codes Specimen Charges Stain Charges 88052 1 5:17 PM CDT DERMATOPATHOLOGY LABORATORY Embedded Images 5:17 PM CDT DERMATOPATHOLOGY LABORATORY Pathology/Cytolog y TISSUE SPECIMEN FROM SKIN / Unknown 10/18/2020 10/19/2020 1:45 PM CDT us Billy Mccullough MD LAB - PATHOLOGY/CYTOLOGY ORD ERABLES Final Result DERMATOPATHOLOGY LABORATORY [facility] - Department of Dermatology [facility] [address] [place] [address], [address] [phone] documented in this encounter Visit Diagnoses Not on filedocumented in this encounter Care Teams Benefits Director Relationship Specialty Start Date End Date Carlos Alcala DO [address] [place] [address] PCP - General 01/10/22 documented as of this encounter
[2025-05-24 20:31] VITALS: BP 135/57; PULSE 98; RESP 14; TEMP 36.6; O2SAT 100
[2025-05-25 01:59] LABS: Hematocrit 28.9 % (37.0-47.0); Hemoglobin 9.7 g/dL (12.0-15.0); Mean Corpuscular HGB Conc 33.6 g/dl (32-36); Mean Corpuscular Hemoglobin 34.4 pg (26-34); Mean Corpuscular Volume 102.5 fl (80-100); Platelet Count Result 246 k/mm3 (150-375); Red Blood Count 2.82 M/mm3 (4.2-5.4); White Blood Count 5.1 K/mm3 (4.5-10.0)
[2025-05-25 02:25] LABS: Alanine Aminotransferase 17 U/L (6-35); Albumin Level 3.5 g/dL (3.5-5.1); Alkaline Phosphatase 107 U/L (38-126); Anion Gap 6 mmol/L (4-12); Anisocytosis 1+; Aspartate Amino Transferase 46 U/L (14-36); Basophils Absolute Manual 0.05 K/mm3 (0.0-0.1); Basophils Percent Manual 1 % (0-1); Bilirubin,Total 0.6 mg/dL (0.2-1.3); Blood Urea Nitrogen 10 mg/dL (7-17); CRP 4.1 mg/dL (<1.0); Calcium 8.4 mg/dL (8.4-10.2); Carbon Dioxide 26 mmol/L (22-30); Chloride 97 mmol/L (98-107); Eosinophils Absolute Manual 0.20 K/mm3 (0.02-0.50); Eosinophils Percent Manual 4 % (0-4); Estimated CRCL calculation 65 ml/min; Estimated Glomerular Filt Rate > 60; Glucose 98 mg/dL (65-110); Lymphocytes Absolute Manual 1.22 K/mm3 (1.1-4.5); Lymphocytes Percent Manual 24.0 % (18-44); Metamyelocytes Percent 1 %; Monocytes Absolute Manual 0.51 K/mm3 (0.1-0.90); Monocytes Percent Manual 10 % (3-9); Neutrophils Percent Manual 60 % (46-73); Potassium 3.6 mmol/L (3.4-5.0); Schistocytes None Seen; Sodium 129 mmol/L (137-145); Total Cells Counted 100; Total Protein 6.2 g/dL (6.3-8.2)
[2025-05-25 02:26] LABS: Band Neutrophils Percent 0 % (0-6); Neutrophils Absolute Manual 3.06 K/mm3 (1.3-6.7); Smudge Cells PRESENT
[2025-05-25 02:31] LABS: NT Pro B Type Natriuretic Pept 389 pg/mL (19.9-100)
[2025-05-25 03:39] LABS: Add Urine Microscopic? NO; Appearance Urine Clear (Clear); Glucose Urine UA Negative (Negative); Leukocyte Esterase Ur Negative LEU/UL (Negative); Nitrate Urine Negative (Negative); Specific Grav Ur 1.006 (1.001-1.035)
--- NOTE | 2025-05-25 03:48 | ED.GENADULT ---
HPI - General Adult General Chief complaint: Extremity Problem,Nontraumatic Stated complaint: swelling of feet/kidney disease Time Seen by Provider: 05/24/25 23:42 History of Present Illness HPI narrative: 69-year-old female presenting with increased redness and swelling to bilateral lower extremities. Patient states symptoms were 1st noticed while she was hospitalized 2 weeks ago due to a fall. She was prescribed prednisone and water pills which provided little improvement. She states the redness and swelling is worse now and is painful interfering with ambulation. She is prescribed hydrocodone for chronic back pain which has helped her pain. Denies fevers/chills, chest pain/shortness of breath, or weakness. Related Data Home Medications ?Medication ?Instructions ?Recorded ?Confirmed ?Last Taken ?Type estradiol 1 mg tablet 1 mg PO DAILY 11/25/19 05/04/25 12/25/21 21:00 History ascorbic acid (vitamin C) 500 mg 1,000 mg PO DAILY 12/26/21 05/04/25 12/26/21 08:00 History tablet cholecalciferol (vitamin D3) 50 50 mcg PO DAILY 05/22/22 05/04/25 Unknown History mcg (2,000 unit) tablet magnesium 250 mg tablet 250 mg PO DAILY 05/22/22 05/04/25 Unknown History hydrocodone 5 mg-acetaminophen 325 1 tablet PO Q8H PRN 12/26/23 05/04/25 Unknown History mg tablet furosemide 20 mg tablet (Lasix) 20 mg PO QAM PRN 02/17/25 05/04/25 Unknown History gabapentin 300 mg capsule 300 mg PO BID 02/17/25 05/04/25 Unknown History Allergies Allergy/AdvReac Type Severity Reaction Status Date / Time chlorhexidine Allergy Intermediate Itching Verified 05/24/25 20:23 Review of Systems Review of Systems: All systems reviewed & are unremarkable except as noted in HPI and below PMFSH Past Medical History Medical History BMI 36.0-36.9,adult Osteoarthritis COPD with emphysema Anxiety Degenerative disc disease Gastroesophageal reflux disease Hyperlipidemia Vitamin D deficiency, unspecified Fibromyalgia Gastroesophageal reflux disease without esophagitis Surgical History Surgical History History of fusion of thoracic spine July 2023 -anterior and posterior thoracolumbar reconstruction with fusion from T10 to the sacrum and ilium at [place] History of tubal ligation History of section History of kyphoplasty History of colonoscopy with polypectomy History of cardiac catheterization (02/2021) Right coronary dominant circulation with no evidence of coronary disease. History of hysterectomy Status post excision of Hernández's neuroma History of repair of right rotator cuff Family History Family History Father Family history of rheumatoid arthritis Cancer Sibling Pancreatic cancer Arthritis Family history of chronic obstructive pulmonary disease Gout Mother Cancer Emphysema of lung Daughter Asthma Social History Social History (Updated 04/26/25 @ 08:38 by Cody Andres, TELEPHONE SERVICE REPRESENTATIVE) Social History: Surrogate decision maker: Israel Chung, spouse. Code status: Full code. Smoking packs per day: 1.5 Smoking cigarettes per day: 30.0 Years smoked: 25 Smoking pack-years: 37.50 Smoking status: Former smoker Tobacco type: cigarettes Second hand tobacco smoke exposure: Yes Smoking end date: 07/22/04 Alcohol intake: current Drinks per week: 4 Substance use: current Substance use type: does not use, painkillers and prescription drug Other substance usage details: CBD oil-for sleep. Lack of Transportation: No Lack of Food: Never True Current Housing: I Have Housing Concerned About Future Housing: No Difficulty Paying Gas/Electric Bills: No Difficulty Paying for Meds: No Currently Unemployed: No Education: Associate Degree Difficulty w/ Childcare or Family Care: No Living arrangements: with family Additional living arrangements comments: The patient lives in [place], [place] with her . 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 Gender identity (if verbalized by the patient): Female Spiritual care concerns: No Exam Narrative: GENERAL: Well-appearing, well-nourished, and in no acute distress. HEAD: Normocephalic, atraumatic. EYES: PERRLA and EOMI. ENT: Nares clear, no rhinorrhea or epistaxis. Mucous membranes moist. Oropharynx without tonsillar hypertrophy exudate or other lesions. Bilateral TMs pearly metcalf non-bulging NECK: Supple. No adenopathy or masses. No carotid bruits or JVD CHEST: Clear to auscultation. No respiratory distress. No wheezes rales or rhonchi HEART: Regular rate and rhythm. No murmur heard. Normal peripheral pulses. ABDOMEN: Soft, nontender, nondistended, normal active bowel sounds. EXTREMITIES: Bilateral lower extremity edema and redness up to knees with 4+ pitting edema. R leg with small mid rdz ulcer without acute signs of infection. SKIN: Warm, dry, no rash. NEURO: No focal deficits. Alert and oriented x3. PSYCH: Normal mood and affect Course Vital Signs Vital signs: Vital Signs Temperature 97.8 F 05/24/25 20:31 Pulse Rate 98 05/24/25 20:31 Respiratory Rate 14 05/24/25 20:31 Blood Pressure 135/57 L 05/24/25 20:31 Pulse Oximetry 100 05/24/25 20:31 Oxygen Delivery Room Air 05/24/25 20:31 Temperature 97.8 F 05/24/25 20:31 Pulse Rate 98 05/24/25 20:31 Respiratory Rate 14 05/24/25 20:31 Blood Pressure 135/57 L 05/24/25 20:31 Pulse Oximetry 100 05/24/25 20:31 Oxygen Delivery Room Air 05/24/25 20:31 MDM MDM Narrative Medical decision making narrative: 69-year-old female presenting with increased redness and swelling to bilateral lower extremities. Patient states symptoms were 1st noticed while she was hospitalized 2 weeks ago due to a fall. She was prescribed prednisone and water pills which provided little improvement. She states the redness and swelling is worse now and is painful interfering with ambulation. She is prescribed hydrocodone for chronic back pain which has helped her pain. Denies fevers/chills, chest pain/shortness of breath, or weakness. Upon my initial assessment patient appears nontoxic with stable vitals. Patient states she has not taken the water pill reporting that it was prescribed p.r.n. with her kidney doctor advising cautious use. Patient's bilateral lower extremities are erythematous with 4+ pitting edema. Labs are within normal limits for the patient except for a CRP of 4.1. Ordered bilateral lower extremity US for tomorrow morning. Plan to prescribe outpatient antibiotics. Differential diagnosis and treatment plan were discussed with the patient. Patient agrees with discussion and after shared medical decision making agrees with plan of care. All questions were answered to the patient's satisfaction. The patient is appropriate for outpatient treatment and follow-up. Given reasons to return. Differential Diagnosis Differential Diagnosis: Differential diagnostic considerations for extremity problems include sprain/strain, fracture, DVT, herpes zoster, gout, cellulitis, superficial thrombophlebitis, physiologic edema. Medical Records I have reviewed the following patient records and this information was taken into consideration when formulating the assessment and plan.: previous labs, previous ER visits and previous clinic visits Lab Data MDM Lab Attestation statement: I personally reviewed the patient's lab results. 05/25/25 01:52 05/25/25 01:52 Labs: Lab Results 05/25/25 05/25/25 Range/Units 01:52 03:25 WBC 5.1 (4.5-10.0) K/mm3 RBC 2.82 L (4.2-5.4) M/mm3 Hgb 9.7 L (12.0-15.0) g/dL Hct 28.9 L (37.0-47.0) % MCV 102.5 H (80-100) fl MCH 34.4 H (26-34) pg MCHC 33.6 (32-36) g/dl RDW 17.6 H (11.5-14.5) % Plt Count 246 (150-375) k/mm3 MPV 8.9 (7.4-10.4) fl Immature Gran % (Auto) Not Reportable Neut % (Auto) Not Reportable Lymph % (Auto) Not Reportable [place] % (Auto) Not Reportable Eos % (Auto) Not Reportable Baso % (Auto) Not Reportable Lymph # (Auto) Not Reportable [place] # (Auto) Not Reportable Eos # (Auto) Not Reportable Baso # (Auto) Not Reportable Abs Immat Gran (auto) Not Reportable Absolute Neuts (auto) Not Reportable Absolute Nucleated RBC Not Reportable Total Counted 100 Neutrophils % (Manual) 60 (46-73) % Band Neutrophils % 0 (0-6) % Lymphocytes % (Manual) 24.0 (18-44) % Monocytes % (Manual) 10 H (3-9) % Eosinophils % (Manual) 4 (0-4) % Basophils % (Manual) 1 (0-1) % Metamyelocytes % 1 % Nucleated RBC % Not Reportable Abs Neuts (Manual) 3.06 (1.3-6.7) K/mm3 Abs Lymphs (Manual) 1.22 (1.1-4.5) K/mm3 Abs Monocytes (Manual) 0.51 (0.1-0.90) K/mm3 Absolute Eos (Manual) 0.20 (0.02-0.50) K/mm3 Abs Basophils (Manual) 0.05 (0.0-0.1) K/mm3 Atypical Lymphocytes Present Smudge Cells Present Platelet Estimate Slightly increased (Adequate) Anisocytosis 1+ Schistocytes None seen Sodium 129 L (137-145) mmol/L Potassium 3.6 (3.4-5.0) mmol/L Chloride 97 L (98-107) mmol/L Carbon Dioxide 26 (22-30) mmol/L Anion Gap 6 (4-12) mmol/L BUN 10 (7-17) mg/dL Creatinine 0.73 (0.7-1.0) mg/dL Estim Creat Clear Calc 65 ml/min Estimated GFR > 60 (59 - ) Glucose 98 (65-110) mg/dL Calcium 8.4 (8.4-10.2) mg/dL Total Bilirubin 0.6 (0.2-1.3) mg/dL AST 46 H (14-36) U/L ALT 17 (6-35) U/L Alkaline Phosphatase 107 (38-126) U/L C-Reactive Protein 4.1 H (<1.0) mg/dL NT-Pro-B Natriuret Pep 389 H (19.9-100) pg/mL Total Protein 6.2 L (6.3-8.2) g/dL Albumin 3.5 (3.5-5.1) g/dL Urine Color Yellow (Yellow) Urine Appearance Clear (Clear) Urine pH 6.5 (5.0-9.0) Ur Specific [place] 1.006 (1.001-1.035) Urine Protein Negative (Negative) mg/dL Urine Glucose (UA) Negative (Negative) mg/dL Urine Ketones Negative (Negative) mg/dL Ur Blood (Man) Negative (Negative) Urine Nitrate Negative (Negative) Urine Bilirubin Negative (Negative) Urine Urobilinogen 0.2 (<2.0) mg/dL Leukocyte Esterase Rfl Negative (Negative) ANTON/UL Discharge Plan Discharge Clinical Impression: 4+ pitting edema Patient Disposition: Home Condition: Stable Instructions: Antibiotic Form Additional Instructions: To help improve your symptoms, recommend compression stockings, elevate your legs above heart level several times a day, stay active with gentle movement, and follow any medication instructions given. Keep skin clean and moisturized, and avoid scratching. Seek medical attention immediately if you develop any worsening swelling, redness or pain in 1 leg, shortness of breath, chest pain, fever, or new numbness or weakness in her legs. Obtain ultrasounds today as discussed. Order provided. Take antibiotics as prescribed. Follow up with her primary care provider or specialist as instructed. Patient Language: Urdu Prescriptions: New cephalexin 500 mg capsule 500 mg PO Q6H Qty: 28 0RF doxycycline hyclate 100 mg capsule 100 mg PO BID Qty: 14 0RF No Action ascorbic acid (vitamin C) 500 mg Tablet 1,000 mg PO DAILY gabapentin 300 mg capsule 300 mg PO BID furosemide [Lasix] 20 mg tablet 20 mg PO QAM PRN Patient Comments: as needed once a day for swelling. take an extra salt tab with this if taken mupirocin [Centany] 2 % ointment 1 applic topical BID Qty: 22 2RF prednisone 10 mg tablet See Rx Instructions PO DAILY Qty: 34 0RF Rx Instructions: 4 tabs daily x 4 days; then 3 tabs daily x 3 days, then 2 tabs daily x 3 days, then 1 tab daily x 3 days. levofloxacin 750 mg tablet 750 mg PO DAILY Qty: 7 0RF hydrocodone-acetaminophen 5-325 mg tablet 1 tablet PO Q8H PRN triamcinolone acetonide 0.1 % cream 1 applic topical TID PRN (Reason: rash) Qty: 453.6 1RF estradiol 1 mg Tablet 1 mg PO DAILY (DME) nebulizer and compressor Device See Rx Instructions .Route Qty: 1 0RF Rx Instructions: As directed aspirin 81 mg Tablet,Delayed Release (Dr/Ec) 81 mg PO QAM 30 Days Qty: 30 0RF magnesium 250 mg Tablet 250 mg PO DAILY cholecalciferol (vitamin D3) 50 mcg (2,000 unit) Tablet 50 mcg PO DAILY ipratropium-albuterol 0.5 mg-3 mg(2.5 mg base)/3 mL solution for nebulization 3 ml inhalation Q6H PRN (Reason: shortness of breath or wheezing) Qty: 360 5RF potassium chloride [Klor-Con M20] 20 mEq tablet,ER particles/crystals 20 meq PO DAILY Qty: 30 12RF pantoprazole 40 mg tablet,delayed release (DR/EC) 40 mg PO QAM Qty: 90 3RF gabapentin 100 mg capsule 100 mg PO TID Qty: 90 5RF hyoscyamine sulfate 0.125 mg tablet See Rx Instructions .ROUTE .COMPLEX Qty: 90 3RF Dose Instruction: TAKE 1 TABLET BY MOUTH EVERY 4 HOURS NEEDED FOR CRAMPS Rx Instructions: TAKE 1 TABLET BY MOUTH EVERY 4 HOURS NEEDED FOR CRAMPS ondansetron HCl 4 mg tablet 4 mg PO Q6H PRN (Reason: nausea and vomiting) Qty: 40 1RF methocarbamol 750 mg tablet See Rx Instructions .ROUTE .COMPLEX Qty: 270 1RF Dose Instruction: TAKE 1 TABLET BY MOUTH THREE TIMES DAILY NEEDED FOR MUSCLE SPASM. Rx Instructions: TAKE 1 TABLET BY MOUTH THREE TIMES DAILY NEEDED FOR MUSCLE SPASM. sodium chloride 1,000 mg tablet,soluble 1,000 mg PO DAILY Qty: 90 3RF atorvastatin 20 mg tablet 20 mg PO QHS Qty: 90 2RF Trelegy Ellipta 100-62.5-25 mcg blister with device 1 inh inhalation Q24H Qty: 60 2RF Rx Instructions: rinse and spit albuterol sulfate 90 mcg/actuation HFA aerosol inhaler 2 puff inhalation Q4-6H PRN (Reason: shortness of breath or wheezing) Qty: 1 5RF lorazepam 0.5 mg tablet 0.5 mg PO TID PRN (Reason: anxiety) Qty: 90 0RF Other Ambulatory Orders: US venous doppler LE CORY (Routine) Timeframe: 1 Day Location: Determined by Patient Ordered By: Emily Hernandez Follow-up/Referrals: Cody Andres APRN [Primary Care Provider, Internal Medicine]
== END 2025-05-25 04:48 | disposition home or self-care (01) ==
PROVIDERS: PCP Nurse Practitioner
DX: R60.0 Localized edema (principal); J43.9 Emphysema, unspecified; E78.5 Hyperlipidemia, unspecified; E55.9 Vitamin D deficiency, unspecified; K21.9 Gastro-esophageal reflux disease without esophagitis; M19.90 Unspecified osteoarthritis, unspecified site; M79.7 Fibromyalgia; G89.29 Other chronic pain; M54.9 Dorsalgia, unspecified; F41.9 Anxiety disorder, unspecified; Z98.1 Arthrodesis status; Z86.0100 Personal history of colon polyps, unspecified; Z87.891 Personal history of nicotine dependence; Z90.710 Acquired absence of both cervix and uterus; Z79.82 Long term (current) use of aspirin; Z79.890 Hormone replacement therapy; Z79.899 Other long term (current) drug therapy
CPT/HCPCS: 36415; 80053; 81003; 83880; 85025; 86140; 99283